=== PATIENT | female | born 1945 | race Caucasian/White ===

== ENCOUNTER 2016-10-28 15:52 | Inpatient (IN) | payer MEDICARE, OTHER ==
[2016-10-28] VITALS (17 sets, daily range): BP systolic 127–213; BP diastolic 59–95; PULSE 80–96; RESP 13–30; TEMP 98.3–100.1; O2SAT 89–100
[~2016-10-28] VITALS: Ht 149.9 cm; Wt 86.4 kg
[~2016-10-28 15:52] MED LIST: ARIC10TA PO; ASPI81 PO; BUSP10TA8 PO; CARV20 PO; CELE200 PO; HYDR-755 PO; LASI20TA PO; LORA10TA7 PO; LORT5TAB PO; NOVO7030P2 SQ; NOVORP2 SQ; OXYB5TAB33 PO; PRIN20TA2 PO; QUET1TAB67 PO; ROSU10 PO
[2016-10-28] MEDS ORDERED: SODIUM CHLORIDE 0.9% FLUSH 10 ML FLUSH IVF PRN ×2 (16:00→16:30)
[2016-10-28] MEDS ORDERED: SUCCINYLCHOLINE CHLORIDE 200 MG/10 ML VIAL IVP ONE (16:30)
[2016-10-28] MEDS ORDERED: ETOMIDATE 20 MG/10 ML VIAL IVP ONE (16:30)
[2016-10-28] MEDS: PROPOFOL 1000 MG/100 ML INJ 100 ML IV PRN ×2 (16:45→21:16)
[2016-10-28 17:19] LABS: BLOOD GAS BASE EXCESS 1.2 mmol/L (-2-2); BLOOD GAS CARBOXYHEMOGLOBIN 1.6 % (0-4); BLOOD GAS HCO3 26 mmol/L (22-26); BLOOD GAS METHEMOGLOBIN 0.7 % (0-2); BLOOD GAS O2 HGB SATURATION 78 % (90-100); BLOOD GAS OXYGEN CONTENT 14.3 Vol % (12.0-20.0); BLOOD GAS PCO2 47 mmHg (38-42); BLOOD GAS PO2 44 mmHG (61-120); CRITICAL VALUE YES; DRAW SITE RT RADIAL; FIO2 21 %; NUMBER OF ARTERIAL PUNCTURES 1; STAT YES; TEMP CORR TO 98.6; ULNAR PULSE PRESENT
[2016-10-28 17:20] LABS: BACTERIA, URINE MOD /hpf; BLOOD, URINE SMALL (NEG); COMMENT (UR) CULTURE INDICATED; CULTURE IF INDICATED CULTURE INDICATED; GLUCOSE,URINE TRACE mg/dL (NEG); KETONE, URINE NEG (NEG); NITRITE,URINE NEG (NEG); PH, URINE 5.5 (5.0-8.5); URINE COLOR YELLOW (YELLW/STRAW)
[2016-10-28] MEDS ORDERED: HUMALOG SQ (17:21)
[2016-10-28] MEDS ORDERED: ZITHTAB PO (17:21)
[2016-10-28] MEDS ORDERED: MILKSUS PO (17:21)
[2016-10-28] MEDS ORDERED: ATOR40TA16 PO (17:21)
[2016-10-28] MEDS ORDERED: ALBU0.08 NEB (17:21)
[2016-10-28] MEDS ORDERED: BISC10SU RECTAL (17:21)
[2016-10-28] MEDS ORDERED: LANTINJ SQ (17:21)
[2016-10-28] MEDS ORDERED: CLON.5 PO (17:21)
[2016-10-28] MEDS ORDERED: AMLO10 PO (17:21)
[2016-10-28] MEDS ORDERED: MICO1KIT VAGINAL (17:21)
[2016-10-28] MEDS ORDERED: CARV25TA PO (17:21)
[2016-10-28] MEDS ORDERED: MINER RECTAL (17:21)
[2016-10-28] MEDS ORDERED: SERO25TA PO (17:21)
[2016-10-28] MEDS ORDERED: HYDR-3288 PO (17:21)
[2016-10-28] MEDS ORDERED: LANTUS2P SQ (17:21)
[2016-10-28 17:27] LABS: AUTOMATED NEUTROPHIL # 10.1 TH/MM3 (1.8-7.7); BASOPHIL # 0.1 TH/MM3 (0-0.2); BASOPHIL % 0.5 % (0.0-2.0); EOSINOPHIL # 0.6 TH/MM3 (0-0.4); EOSINOPHIL % 3.6 % (0.0-4.0); HEMATOCRIT 40.6 % (35.0-46.0); HEMO FLAGS DIFF FINAL; LYMPH % 23.8 % (9.0-44.0); LYMPHOCYTE # 3.7 TH/MM3 (1.0-4.8); MEAN CELL VOLUME 90.4 FL (80.0-100.0); MEAN CORPUSCULAR HEMOGLOBIN 29.5 PG (27.0-34.0); MEAN CORPUSCULAR HGB CONC 32.6 % (32.0-36.0); MONO % 7.2 % (0.0-8.0); NEUT % 64.9 % (16.0-70.0); PLATELET COUNT 230 TH/MM3 (150-450); RED BLOOD COUNT 4.49 MIL/MM3 (4.00-5.30); RED CELL DISTRIBUTION WIDTH 14.2 % (11.6-17.2); WHITE BLOOD COUNT 15.6 TH/MM3 (4.0-11.0)
[2016-10-28 17:28] LABS: APTT (PATIENT) 29.2 SEC (24.3-30.1)
[2016-10-28 17:35] LABS: ANION GAP 8 MEQ/L (5-15); AST (GOT) 8 U/L (15-37); BICARBONATE 28.3 MEQ/L (21.0-32.0); BLOOD UREA NITROGEN 24 MG/DL (7-18); CHLORIDE 104 MEQ/L (98-107); GLOMERULAR FILTRATION RATE 55 ML/MIN (>89); POTASSIUM 4.5 MEQ/L (3.5-5.1); SODIUM (NA) 140 MEQ/L (136-145)
[2016-10-28 17:36] LABS: ALT (GPT) 8 U/L (10-53)
--- NOTE | 2016-10-28 17:36 | RADRPT ---
EXAM DATE/TIME: 10/28/2016 16:58 [facility] COMPARISON: No previous studies available for comparison. INDICATIONS : E-T tube placement. MEDICAL HISTORY : Hypertension. Diabetes mellitus type II. Arthritis. SURGICAL HISTORY : None. ENCOUNTER: Initial ACUITY: 1 day PAIN SCORE: Non-responsive. LOCATION: Bilateral chest FINDINGS: 4 cm masslike fullness seen in the right hilar region and potentially cavitary with air-fluid level. There is some non-cavitary fullness in the left hilar region as well. Patchy air space consolidations in both lungs, mid and lower lung predominant. A small pleural effusion is suspected on both sides. No pneumothorax. Heart size within normal limits. Endotracheal tube tip is approximately 2 cm above the radhika. There is a nasogastric tube with tip in the stomach. CONCLUSION: 1. Bilateral hilar masslike fullness and with questionable cavitation on the right. I don't have any pertinent priors for comparison. A CT of the chest, preferably with intravenous contrast, is recommen ded. 2. Patchy mid and lower lung predominant air space consolidation bilaterally and with small pleural e ffusions. 3. Endotracheal tube tip is approximately 2 cm above the radhika. 4. Nasogastric tube tip in the stomach. Keshav Burks MD on October 28, 2016 at 17:32 Board Certified Radiologist. This report was verified electronically.
[2016-10-28 17:40] LABS: ALKALINE PHOSPHATASE 58 U/L (45-117); TOTAL BILIRUBIN ADULT 0.3 MG/DL (0.2-1.0)
[2016-10-28 17:44] LABS: CREATINE KINASE 46 U/L (26-192)
[2016-10-28 18:01] LABS: BLOOD GAS CARBOXYHEMOGLOBIN 1.4 % (0-4); BLOOD GAS HCO3 24 mmol/L (22-26); BLOOD GAS METHEMOGLOBIN 0.5 % (0-2); BLOOD GAS O2 HGB SATURATION 93 % (90-100); BLOOD GAS OXYGEN CONTENT 15.8 Vol % (12.0-20.0); BLOOD GAS PCO2 45 mmHg (38-42); BLOOD GAS PO2 77 mmHG (61-120); CRITICAL VALUE NO; TEMP CORR TO 98.6
[2016-10-28 18:02] LABS: OXYGEN DEVICE VENTILATOR
--- NOTE | 2016-10-28 18:03 | PD ---
Physical Exam Date Seen by Provider: Oct 28, 2016 Time Seen by Provider: 17:56 Data Data Last Documented VS Vital Signs Date Time Temp Pulse Resp B/P (MAP) Pulse Ox O2 Delivery O2 Flow Rate FiO2 10/28/16 17:53 82 14 165/79 (107) 99 Auto-Vent 100 10/28/16 16:00 15.00 10/28/16 15:57 100.1 Orders Orders Complete Blood Count With Diff (10/28/16 15:59) Comprehensive Metabolic Panel (10/28/16 15:59) B-Type Natriuretic Peptide (10/28/16 15:59) Act Partial Throm Time (Ptt) (10/28/16 15:59) Ckmb (Isoenzyme) Profile (10/28/16 15:59) Troponin I (10/28/16 15:59) Arterial Blood Gas (Abg) (10/28/16 15:59) Urinalysis - C+S If Indicated (10/28/16 15:59) Blood Culture (10/28/16 15:59) Iv Access Insert/Monitor (10/28/16 15:59) Electrocardiogram (10/28/16 15:59) Ecg Monitoring (10/28/16 15:59) Oximetry (10/28/16 15:59) Oxygen Administration (10/28/16 15:59) Chest, Single Ap (10/28/16 15:59) Sodium Chloride 0.9% Flush (Ns Flush) (10/28/16 16:00) Etomidate Inj (Amidate Inj) (10/28/16 16:30) Succinylcholine Inj (Quelicin Inj) (10/28/16 16:30) Sodium Chloride 0.9% Flush (Ns Flush) (10/28/16 16:30) Propofol 1000 Mg/100 Ml Inj (Diprivan 10 (10/28/16 16:30) ^ Infusion (10/28/16 16:22) RASS (10/28/16 16:22) Neurological Rass Scale SHANIQUE.Q2H (10/28/16 16:22) Restraints Non-Violent SHANIQUE.Q3H (10/28/16 17:16) ^ Orogastric Tube (10/28/16 17:16) Urinary Catheter Insert/Apply (10/28/16 17:16) Urine Culture (10/28/16 17:00) Labs Laboratory Tests Test 10/28/16 15:50 10/28/16 16:15 10/28/16 17:00 Blood Gas Puncture Site RT RADIAL Blood Gas Patient Temperature 98.6 Blood Gas HCO3 26 mmol/L Blood Gas Base Excess 1.2 mmol/L Blood Gas Oxygen Saturation 78 % Arterial Blood pH 7.36 Arterial Blood Partial Pressure CO2 47 mmHg Arterial Blood Partial Pressure O2 44 mmHG Arterial Blood Oxygen Content 14.3 Vol % Arterial Blood Carboxyhemoglobin 1.6 % Arterial Blood Methemoglobin 0.7 % Blood Gas Hemoglobin 13.0 G/DL Blood Gas Inspired Oxygen 21 % White Blood Count 15.6 TH/MM3 Red Blood Count 4.49 MIL/MM3 Hemoglobin 13.2 GM/DL Hematocrit 40.6 % Mean Corpuscular Volume 90.4 FL Mean Corpuscular Hemoglobin 29.5 PG Mean Corpuscular Hemoglobin Concent 32.6 % Red Cell Distribution Width 14.2 % Platelet Count 230 TH/MM3 Mean Platelet Volume 8.7 FL Neutrophils (%) (Auto) 64.9 % Lymphocytes (%) (Auto) 23.8 % Monocytes (%) (Auto) 7.2 % Eosinophils (%) (Auto) 3.6 % Basophils (%) (Auto) 0.5 % Neutrophils # (Auto) 10.1 TH/MM3 Lymphocytes # (Auto) 3.7 TH/MM3 Monocytes # (Auto) 1.1 TH/MM3 Eosinophils # (Auto) 0.6 TH/MM3 Basophils # (Auto) 0.1 TH/MM3 CBC Comment DIFF FINAL Differential Comment Activated Partial Thromboplast Time 29.2 SEC Blood Urea Nitrogen 24 MG/DL Creatinine 1.00 MG/DL Random Glucose 125 MG/DL Total Protein 7.3 GM/DL Albumin 3.3 GM/DL Calcium Level 8.9 MG/DL Alkaline Phosphatase 58 U/L Aspartate Amino Transf (AST/SGOT) 8 U/L Alanine Aminotransferase (ALT/SGPT) 8 U/L Total Bilirubin 0.3 MG/DL Sodium Level 140 MEQ/L Potassium Level 4.5 MEQ/L Chloride Level 104 MEQ/L Carbon Dioxide Level 28.3 MEQ/L Anion Gap 8 MEQ/L Estimat Glomerular Filtration Rate 55 ML/MIN Total Creatine Kinase 46 U/L Troponin I LESS THAN 0.02 NG/ML Urine Color YELLOW Urine Turbidity HAZY Urine pH 5.5 Urine Specific [place] 1.018 Urine Protein 300 mg/dL Urine Glucose (UA) TRACE mg/dL Urine Ketones NEG mg/dL Urine Occult Blood SMALL Urine Nitrite NEG Urine Bilirubin NEG Urine Urobilinogen LESS THAN 2.0 MG/DL Urine Leukocyte Esterase MOD Urine RBC 1 /hpf Urine WBC 8 /hpf Urine Bacteria MOD /hpf Microscopic Urinalysis Comment CULTURE INDICATED MDM Supervised Visit with CARA: Yes Narrative Course Dr. Potter supervised me while I intubated this patient in respiratory distress. Please see procedure note for details. See Dr. Potter's notes for full dose of this patient's emergency room visit. Procedures Procedure Narrative After the risks and benefits were discussed the following procedure was performed: INTUBATION: The patient was put in optimal position for the procedure. Rapid sequence intubation was initiated by me using 20 milligrams of etomidate IV and 100 milligrams of succinylcholine IV. The patient was intubated with a 7.5 cuffed endotracheal tube utilizing the C Eric intubation device.. Tube placement was confirmed by visualization of the tube and balloon passing through the cords, capnometry and subsequent chest x-ray. Breath sounds were equal and well aerated bilaterally postintubation. No breath sounds over stomach. Patient tolerated procedure well. Sharon Orourke Oct 28, 2016 18:03
[2016-10-28] MEDS ORDERED: AZTREONAM INJ 2,000 MG in SODIUM CHLORIDE 0.9% INJ 100 ML IV STA (18:15)
[2016-10-28] MEDS ORDERED: LEVOFLOXACIN 750 MG PREMIX INJ 150 ML IV STA (18:15)
--- NOTE | 2016-10-28 18:25 | PD ---
HPI Chief Complaint: Respiratory Distress Time Seen by Provider: 15:59 Travel History International Travel<30 days: No Contact w/Intl Traveler<30days: No Traveled to known affect area: No History of Present Illness HPI This is a 70-year-old female who presents from the [place] [facility] with shortness of breath and low O2 saturations per the patient has a history of diabetes mellitus, hyperlipidemia, reactive airway disease. When paramedics arrived they found the patient says to be in the 70s and patient was to. The patient has a large apple-shaped habitus. They report that she was very apneic when trying to breathe on her own. [employer] Core Layer report of the head to hold her head up to have her breathe with a nebulizer treatments in place. Patient received 125 mg of Solu-Medrol. Patient also had 4 nebulizer prior to arrival. When patient arrived she was very lethargic however was able to answer some questions. She does have a history of dementia and was not able to answer all questions are appropriately. A blood gas was obtained and showed her PO2 and PCO2 to be in the 40s. Concern was that she was going to respiratory distress PFS Past Medical History Arthritis: Yes (OSTEO) Asthma: No Autoimmune Disease: No Blood Disorders: No (N) Anxiety: Yes Depression: Yes Heart Rhythm Problems: No Cancer: No Cardiovascular Problems: Yes Chemotherapy: No Chest Pain: No Congestive Heart Failure: No COPD: No Cerebrovascular Accident: No Dementia: Yes Diabetes: Yes Patient Takes Glucophage: Yes Endocrine: No GERD: No Glaucoma: No Genitourinary: No Headaches: Yes (ONCE A DAY, EVERYDAY) Hepatitis: No Hiatal Hernia: No Hypertension: Yes Immune Disorder: No Kidney Stones: No Medical other: Yes (RHINITIS,CONSTIPATION,EDEMA) Musculoskeletal: Yes (WEAKNESS) Neurologic: No Psychiatric: No Reproductive: No Respiratory: Yes Migraines: No Myocardial Infarction: No Radiation Therapy: No Renal Failure: No Seizures: No Sickle Cell Disease: No Sleep Apnea: No Thyroid Disease: Yes Ulcer: No Past Surgical History Abdominal Surgery: No AICD: No Appendectomy: No Arteriovenous Shunt: No Cholecystectomy: No Ear Surgery: No Endocrine Surgery: No Genitourinary Surgery: No Gynecologic Surgery: No Insulin Pump: No Joint Replacement: No Oral Surgery: No Pacemaker: No Thoracic Surgery: No Social History Alcohol Use: No Tobacco Use: No Substance Use: No Allergies-Medications (Allergen,Severity, Reaction): Coded Allergies: propoxyphene (Unverified Allergy, Severe, 09/25/16) amoxicillin (Verified Allergy, Unknown, 10/28/16) Reported Meds & Prescriptions Reported Meds & Active Scripts Active Reported Fleet Oil Enema (Mineral Oil) 118 Ml Enem 1 Ea RECTAL DIRECTED PRN Milk of Magnesia Liq (Magnesium Hydroxide) 400 Mg/5 Ml Susp 15 Ml PO DAILY PRN Biscolax Supp (Bisacodyl) 10 Mg Supp 10 Mg RECTAL DAILY PRN Carvedilol 25 Mg Tab 25 Mg PO BID Humalog Inj (Insulin Human Lispro) 1,000 Unit/10 Ml Vial 1-9 Units SQ ACHS Max dose at bedtime:( )units; sugars< 70,(0)units; sugars 150-199,(1)unit; sugars 200-249,(3)units; sugars 250-299,(5)units; sugars 300-349,(7)units; sugars more than 349,(9)units. Monistat 1 Day or Night C 1200-2 mg-% (Miconazole Nitrate Vaginal) 1,200 Mg-2 % Kit 1 Ea VAGINAL ONCE Lantus Solostar Pen Inj (Insulin Glargine) 300 Unit/3 Ml Pen 1 Units SQ Lantus Inj (Insulin Glargine) 1,000 Unit/10 Ml Vial 1 Units SQ HS Norvasc (Amlodipine Besylate) 10 Mg Tab 10 Mg PO DAILY Atorvastatin (Atorvastatin Calcium) 40 Mg Tab 40 Mg PO HS Klonopin (Clonazepam) 0.5 Mg Tab 0.5 Mg PO BID Seroquel (Quetiapine Fumarate) 25 Mg Tab 25 Mg PO DAILY [place] (Hydrocodone-Acetaminophen) 7.5-325 mg Tab 1 Tab PO Q4H PRN Zithromax Z-Ronnie (Azithromycin) 250 Mg Dspk 250 Mg PO DIRECTED 500 MG (2 tabs) day 1, then 1 tab days 2-5. Albuterol Neb (Albuterol Sulfate) 2.5 Mg/3 Ml Neb 2.5 Mg NEB Q4HR NEB PRN Review of Systems ROS Limitations: Clinical Condition, Poor Historian Except as stated in HPI: all other systems reviewed are Neg (review of systems were negative however patient does have a history of dementia and unable to provide adequate history. She was only complaining of shortness of breath.) Respiratory: Positive: Shortness of Breath Physical Exam Narrative GENERAL: Ill appearing female and moderate to severe respiratory distress. SKIN: Focused skin assessment warm/dry. HEAD: Atraumatic. Normocephalic. EYES: No scleral icterus. No injection or drainage. ENT: No nasal bleeding or discharge. Mucous membranes pink and moist. NECK: Trachea midline. No JVD. CARDIOVASCULAR: Regular rate and rhythm. No murmur appreciated. RESPIRATORY: Coarse rhonchi and Rales bilaterally. Shallow respiratory effort. GASTROINTESTINAL: Abdomen soft, non-tender, nondistended. No rebound or guarding. MUSCULOSKELETAL: No obvious deformities. No clubbing. No cyanosis. No edema. NEUROLOGICAL: Awake and lethargic. No obvious cranial nerve deficits. Motor grossly within normal limits. Week speech.. Data Data Last Documented VS Vital Signs Date Time Temp Pulse Resp B/P (MAP) Pulse Ox O2 Delivery O2 Flow Rate FiO2 10/28/16 18:12 85 14 146/59 (88) 100 Auto-Vent 100 10/28/16 17:57 99.7 10/28/16 16:00 15.00 Orders Orders Complete Blood Count With Diff (10/28/16 15:59) Comprehensive Metabolic Panel (10/28/16 15:59) B-Type Natriuretic Peptide (10/28/16 15:59) Act Partial Throm Time (Ptt) (10/28/16 15:59) Ckmb (Isoenzyme) Profile (10/28/16 15:59) Troponin I (10/28/16 15:59) Arterial Blood Gas (Abg) (10/28/16 15:59) Urinalysis - C+S If Indicated (10/28/16 15:59) Blood Culture (10/28/16 15:59) Iv Access Insert/Monitor (10/28/16 15:59) Electrocardiogram (10/28/16 15:59) Ecg Monitoring (10/28/16 15:59) Oximetry (10/28/16 15:59) Oxygen Administration (10/28/16 15:59) Chest, Single Ap (10/28/16 15:59) Sodium Chloride 0.9% Flush (Ns Flush) (10/28/16 16:00) Etomidate Inj (Amidate Inj) (10/28/16 16:30) Succinylcholine Inj (Quelicin Inj) (10/28/16 16:30) Sodium Chloride 0.9% Flush (Ns Flush) (10/28/16 16:30) Propofol 1000 Mg/100 Ml Inj (Diprivan 10 (10/28/16 16:30) ^ Infusion (10/28/16 16:22) RASS (10/28/16 16:22) Neurological Rass Scale SHANIQUE.Q2H (10/28/16 16:22) Restraints Non-Violent SHANIQUE.Q3H (10/28/16 17:16) ^ Orogastric Tube (10/28/16 17:16) Urinary Catheter Insert/Apply (10/28/16 17:16) Urine Culture (10/28/16 17:00) Arterial Blood Gas (Abg) (10/28/16 17:40) Ct Thorax/ Chest W Iv Contrast (10/28/16 18:14) Blood Glucose (10/28/16 18:15) Aztreonam Inj (Azactam Inj) (10/28/16 18:15) Levofloxacin 750 Mg Premix Inj (Levaquin (10/28/16 18:15) Admit Order (Ed Use Only) (10/28/16 18:29) Labs Laboratory Tests Test 10/28/16 15:50 10/28/16 16:15 10/28/16 17:00 10/28/16 17:40 Blood Gas Puncture Site RT RADIAL RT BRACHIAL Blood Gas Patient Temperature 98.6 98.6 Blood Gas HCO3 26 mmol/L 24 mmol/L Blood Gas Base Excess 1.2 mmol/L -1.0 mmol/L Blood Gas Oxygen Saturation 78 % 93 % Arterial Blood pH 7.36 7.34 Arterial Blood Partial Pressure CO2 47 mmHg 45 mmHg Arterial Blood Partial Pressure O2 44 mmHG 77 mmHG Arterial Blood Oxygen Content 14.3 Vol % 15.8 Vol % Arterial Blood Carboxyhemoglobin 1.6 % 1.4 % Arterial Blood Methemoglobin 0.7 % 0.5 % Blood Gas Hemoglobin 13.0 G/DL 12.0 G/DL Blood Gas Inspired Oxygen 21 % 100 % White Blood Count 15.6 TH/MM3 Red Blood Count 4.49 MIL/MM3 Hemoglobin 13.2 GM/DL Hematocrit 40.6 % Mean Corpuscular Volume 90.4 FL Mean Corpuscular Hemoglobin 29.5 PG Mean Corpuscular Hemoglobin Concent 32.6 % Red Cell Distribution Width 14.2 % Platelet Count 230 TH/MM3 Mean Platelet Volume 8.7 FL Neutrophils (%) (Auto) 64.9 % Lymphocytes (%) (Auto) 23.8 % Monocytes (%) (Auto) 7.2 % Eosinophils (%) (Auto) 3.6 % Basophils (%) (Auto) 0.5 % Neutrophils # (Auto) 10.1 TH/MM3 Lymphocytes # (Auto) 3.7 TH/MM3 Monocytes # (Auto) 1.1 TH/MM3 Eosinophils # (Auto) 0.6 TH/MM3 Basophils # (Auto) 0.1 TH/MM3 CBC Comment DIFF FINAL Differential Comment Activated Partial Thromboplast Time 29.2 SEC Blood Urea Nitrogen 24 MG/DL Creatinine 1.00 MG/DL Random Glucose 125 MG/DL Total Protein 7.3 GM/DL Albumin 3.3 GM/DL Calcium Level 8.9 MG/DL Alkaline Phosphatase 58 U/L Aspartate Amino Transf (AST/SGOT) 8 U/L Alanine Aminotransferase (ALT/SGPT) 8 U/L Total Bilirubin 0.3 MG/DL Sodium Level 140 MEQ/L Potassium Level 4.5 MEQ/L Chloride Level 104 MEQ/L Carbon Dioxide Level 28.3 MEQ/L Anion Gap 8 MEQ/L Estimat Glomerular Filtration Rate 55 ML/MIN Total Creatine Kinase 46 U/L Troponin I LESS THAN 0.02 NG/ML B-Type Natriuretic Peptide 12 PG/ML Urine Color YELLOW Urine Turbidity HAZY Urine pH 5.5 Urine Specific [place] 1.018 Urine Protein 300 mg/dL Urine Glucose (UA) TRACE mg/dL Urine Ketones NEG mg/dL Urine Occult Blood SMALL Urine Nitrite NEG Urine Bilirubin NEG Urine Urobilinogen LESS THAN 2.0 MG/DL Urine Leukocyte Esterase MOD Urine RBC 1 /hpf Urine WBC 8 /hpf Urine Bacteria MOD /hpf Microscopic Urinalysis Comment CULTURE INDICATED Oxygen Delivery Device VENTILATOR Blood Gas Ventilator Setting MDM Medical Decision Making Medical Screen Exam Complete: Yes Emergency Medical Condition: Yes Differential Diagnosis Respiratory failure versus pneumonia versus COPD exacerbation versus pulmonary him was versus hypercapnia Narrative Course This is a 70-year-old female presents with severe shortness of breath. The patient was becoming fatigued. Her initial blood gas showed a PO2 and a PCO2 in the 40s. Her pH was 7.35. Given an pending respiratory failure, the patient was intubated. Chest x-ray shows what appears to be a cavitary lesion and possible masses bilateral mediastinal. She also has what appears to be a left lower lobe consolidation and bilateral small pleural effusions. There is a call out to the authorization manager for admission. She is currently getting a CT scan of the chest for further visualization of the abnormal chest x-ray findings. She has an amoxicillin allergy so she has been started on aztreonam and levofloxacin. Her urinalysis has a slight UTI as well. Critical Care Narrative Aggregate critical care time was 60 minutes. Time to perform other separately billable procedures was not included in the critical care time. My time did not include minutes spent treating any other patients simultaneously or on activities that did not directly contribute to the patient's treatment. The services I provided to this patient were to treat and/or prevent clinically significant deterioration that could result in: I provided critical care services requiring my management, as noted below: Chart data review, documentation time, medication orders and management, vital sign assessments/reviewing monitor data, ordering and reviewing lab tests, ordering and interpreting/reviewing x-rays and diagnostic studies, care of the patient and discussion of the patient with the admitting physicians. Procedures Procedure Narrative Under my direct supervision, patient was intubated using the [facility] by Beth Orourke PA-C. Patient was premedicated with 20 mg of accommodate, 100 g of succinylcholine. A 7.5 ET tube was passed throughout the cords under direct visualization. End-tidal CO2 and colorimetric device confirmed placement of the tube. Chest x-ray showed the ET tube be 2 cm above the radhika. Diagnosis Primary Impression: Respiratory failure Additional Impressions: Cavitary lesion of lung possible pulmonary masses. Pneumonia Hypoxemia requiring supplemental oxygen UTI (urinary tract infection) Admitting Information Admitting Physician Requests: Admit Jones Potter MD Oct 28, 2016 18:25
[2016-10-28] MEDS ORDERED: HEPARIN SODIUM - SQ 10,000 UNITS/ML VIAL SQ SCH (18:30)
[2016-10-28] MEDS ORDERED: MISCELLANEOUS NURSING INFORMATION XX SCH (18:30)
[2016-10-28] MEDS ORDERED: RESP: ALBUTEROL 2.5 MG/IPRATROPIUM 0.5 MG NEB (PRN) INH (18:30)
[2016-10-28] MEDS ORDERED: SODIUM CHLORIDE 0.9% FLUSH 10 ML FLUSH IV FLUSH PRN (18:30)
[2016-10-28] MEDS ORDERED: CHLORHEXIDINE GLUCONATE 2 % 1 PACK (2 CLOTHS) TOP PRN (18:30)
[2016-10-28] MEDS ORDERED: IOHEXOL 350 MG/ML 10 ML VIAL (for RAD DIAG) IVCONTRAST ONE (18:33)
[2016-10-28 18:44] LABS: DRAW SITE RT BRACHIAL; FIO2 100 %; NUMBER OF ARTERIAL PUNCTURES 1; STAT NO
--- NOTE | 2016-10-28 18:51 | RADRPT ---
EXAM DATE/TIME: 10/28/2016 18:28 [facility] COMPARISON: CHEST SINGLE AP, October 28, 2016, 16:58. INDICATIONS : Respiratory distress, mass. IV CONTRAST: 75 cc Omnipaque 350 (iohexol) IV RADIATION DOSE: 8.69 CTDIvol (mGy) MEDICAL HISTORY : unobtainable SURGICAL HISTORY : unobtainable ENCOUNTER: Initial ACUITY: 1 day PAIN SCALE: Non-responsive LOCATION: chest TECHNIQUE: Volumetric scanning of the chest was performed. Using automated exposure control and adjustment of t he mA and/or kV according to patient size, radiation dose was kept as low as reasonably achievable to obtain optimal diagnostic quality images. DICOM format image data is available electronically for review and comparison. Follow-up recommendations for detected pulmonary nodules are based at a minimum on nodule size and pa tient risk factors according to Fleischner Society Guidelines. FINDINGS: LUNGS: Dense airspace consolidation in the inferior right upper lobe abutting the fissure. Abnormality on ch est radiograph corresponds to superimposed consolidation and central hilar mass/adenopathy measuring 3.4 x 3.5 cm. There is a solid 1.3 x 0.8 cm nodule in the anterior right middle lobe. There is a seco nd peripheral nodule in the anterior right upper lobe near the apex measuring 8 x 8 mm. Diffuse lower lobe groundglass opacities and patchy bilateral lower lobe airspace consolidation. PLEURA: No significant pleural effusion. MEDIASTINUM: There is a large 3.9 x 4.3 cm heterogeneous nodule in the right thyroid gland. Patient is intubated w ith ETT in good position. NGT courses into the stomach. There is a slightly prominent anterior radhika l node measuring 1.5 cm. Again, there is right hilar mass/adenopathy. The prominent coronary artery c alcifications. Heart is otherwise grossly unremarkable. Central pulmonary artery is patent. AXILLAE: Within normal limits. No significant lymphadenopathy. SKELETAL: No abnormal lytic or blastic bony lesions. MISCELLANEOUS: The visualized upper abdominal organs demonstrate no acute abnormality. CONCLUSION: 1. Abnormality on chest radiograph corresponds to a 3.4 x 3.5 cm central right hilar mass/adenopathy with associated postobstructive airspace consolidation in the inferior right upper lobe. There are at least 2 additional pulmonary nodules measuring 13 x 8 mm in the anterior right middle lobe and 8 x 8 mm in the anterior right upper lobe near the apex. 2. 3.9 x 4.3 cm heterogeneous nodule in the right thyroid gland. No significant regional cervical sipke nopathy. 3. Patchy bilateral lower lobe air space consolidation and diffuse ground glass opacities. Differenti al considerations include ARDS versus infection versus aspiration. 1. Tyler Selby MD on October 28, 2016 at 18:36 Board Certified Radiologist. This report was verified electronically.
[2016-10-28] MEDS: SODIUM CHLOR 0.9% 1000 ML INJ 1,000 ML IV SCH (18:58)
[2016-10-28] MEDS: RESP: ALBUTEROL 2.5 MG/IPRATROPIUM 0.5 MG NEB (SCH) NEB (19:33)
--- NOTE | 2016-10-28 19:56 | HHI.CCPN ---
Subjective Remarks/Hospital Course HPI 70-[facility]-old [facility] resident with a medical history significant for dementia, diabetes mellitus, hyperlipidemia, reactive airway disease who was found to have altered mental status at the [facility] for which EMS was called. Patient was noted to have O2 sats in the 70s. She was very apneic with her head slumped down. Paramedics report of having to hold her head up to have her breathe with the nebulizer treatment in place. Patient was given Solu- Medrol 125 mg IV and 4 nebulizer treatments prior to arrival in the ER for documentation. On arrival in the ER patient was extremely lethargic however was reportedly able to answer some questions. Patient was felt not to be able to protect her airway as well as very hypoxic and hence was intubated by ER physician and placed on mechanical ventilation. Chest x-ray in the ER showed bilateral infiltrates and possible cavitary lesion. She was accepted for admission by critical care medicine service. CT chest was ordered by ER physician. When I evaluated the patient in the ER she was sedated with propofol , orally intubated on mechanical ventilation. History was obtained by reviewing records and discussion with ER physician. History PFSH Past Medical History Arthritis: Yes (OSTEO) Asthma: No Autoimmune Disease: No Blood Disorders: No (N) Anxiety: Yes Depression: Yes Heart Rhythm Problems: No Cancer: No Cardiovascular Problems: Yes Chemotherapy: No Chest Pain: No Congestive Heart Failure: No COPD: No Cerebrovascular Accident: No Dementia: Yes Diabetes: Yes Patient Takes Glucophage: Yes Endocrine: No GERD: No Glaucoma: No Genitourinary: No Headaches: Yes (ONCE A DAY, EVERYDAY) Hepatitis: No Hiatal Hernia: No Hypertension: Yes Immune Disorder: No Kidney Stones: No Medical other: Yes (RHINITIS,CONSTIPATION,EDEMA) Musculoskeletal: Yes (WEAKNESS) Neurologic: No Psychiatric: No Reproductive: No Respiratory: Yes Migraines: No Myocardial Infarction: No Radiation Therapy: No Renal Failure: No Seizures: No Sickle Cell Disease: No Sleep Apnea: No Thyroid Disease: Yes Ulcer: No Past Surgical History Abdominal Surgery: No AICD: No Appendectomy: No Arteriovenous Shunt: No Cholecystectomy: No Ear Surgery: No Endocrine Surgery: No Genitourinary Surgery: No Gynecologic Surgery: No Insulin Pump: No Joint Replacement: No Oral Surgery: No Pacemaker: No Thoracic Surgery: No Social History Alcohol Use: No Tobacco Use: No Substance Use: No Allergies-Medications Allergies-Medications (Allergen,Severity, Reaction): Coded Allergies: propoxyphene (Unverified Allergy, Severe, 09/25/16) amoxicillin (Verified Allergy, Unknown, 10/28/16) Reported Meds & Prescriptions Reported Meds & Active Scripts Active Reported Fleet Oil Enema (Mineral Oil) 118 Ml Enem 1 Ea RECTAL DIRECTED PRN Milk of Magnesia Liq (Magnesium Hydroxide) 400 Mg/5 Ml Susp 15 Ml PO DAILY PRN Biscolax Supp (Bisacodyl) 10 Mg Supp 10 Mg RECTAL DAILY PRN Carvedilol 25 Mg Tab 25 Mg PO BID Humalog Inj (Insulin Human Lispro) 1,000 Unit/10 Ml Vial 1-9 Units SQ ACHS Max dose at bedtime:( )units; sugars< 70,(0)units; sugars 150-199,(1)unit; sugars 200-249,(3)units; sugars 250-299,(5)units; sugars 300-349,(7)units; sugars more than 349,(9)units. Monistat 1 Day or Night C 1200-2 mg-% (Miconazole Nitrate Vaginal) 1,200 Mg-2 % Kit 1 Ea VAGINAL ONCE Lantus Solostar Pen Inj (Insulin Glargine) 300 Unit/3 Ml Pen 1 Units SQ Lantus Inj (Insulin Glargine) 1,000 Unit/10 Ml Vial 1 Units SQ HS Norvasc (Amlodipine Besylate) 10 Mg Tab 10 Mg PO DAILY Atorvastatin (Atorvastatin Calcium) 40 Mg Tab 40 Mg PO HS Klonopin (Clonazepam) 0.5 Mg Tab 0.5 Mg PO BID Seroquel (Quetiapine Fumarate) 25 Mg Tab 25 Mg PO DAILY [place] (Hydrocodone-Acetaminophen) 7.5-325 mg Tab 1 Tab PO Q4H PRN Zithromax Z-Ronnie (Azithromycin) 250 Mg Dspk 250 Mg PO DIRECTED 500 MG (2 tabs) day 1, then 1 tab days 2-5. Albuterol Neb (Albuterol Sulfate) 2.5 Mg/3 Ml Neb 2.5 Mg NEB Q4HR NEB PRN Objective Vital Signs Date Time Temp Pulse Resp B/P (MAP) Pulse Ox O2 Delivery O2 Flow Rate FiO2 10/28/16 19:27 100 10/28/16 18:58 84 13 151/67 (95) 100 Auto-Vent 10/28/16 17:57 99.7 10/28/16 16:00 15.00 Intake and Output 10/28/16 10/28/16 10/29/16 08:00 16:00 00:00 Output Total 150 ml Balance -150 ml Result Diagram: 10/28/16 1615 10/28/16 1615 Other Results Laboratory Tests Test 10/28/16 15:50 10/28/16 17:40 Blood Gas Puncture Site RT RADIAL RT BRACHIAL Blood Gas Patient Temperature 98.6 98.6 Blood Gas HCO3 26 mmol/L (22-26) 24 mmol/L (22-26) Blood Gas Base Excess 1.2 mmol/L (-2-2) -1.0 mmol/L (-2-2) Blood Gas Oxygen Saturation 78 % (90-100) 93 % (90-100) Arterial Blood pH 7.36 (7.380-7.420) 7.34 (7.380-7.420) Arterial Blood Partial Pressure CO2 47 mmHg (38-42) 45 mmHg (38-42) Arterial Blood Partial Pressure O2 44 mmHG (61-120) 77 mmHG (61-120) Arterial Blood Oxygen Content 14.3 Vol % (12.0-20.0) 15.8 Vol % (12.0-20.0) Arterial Blood Carboxyhemoglobin 1.6 % (0-4) 1.4 % (0-4) Arterial Blood Methemoglobin 0.7 % (0-2) 0.5 % (0-2) Blood Gas Hemoglobin 13.0 G/DL (12.0-16.0) 12.0 G/DL (12.0-16.0) Blood Gas Inspired Oxygen 21 % 100 % Oxygen Delivery Device VENTILATOR Blood Gas Ventilator Setting Imaging Last Impressions Chest CT 10/28/161813 Signed Impressions: Service Date/Time: Friday, October 28, 2016 18:28 - CONCLUSION: 1. Abnormality on chest radiograph corresponds to a 3.4 x 3.5 cm central right hilar mass/adenopathy with associated postobstructive airspace consolidation in the inferior right upper lobe. There are at least 2 additional pulmonary nodules measuring 13 x 8 mm in the anterior right middle lobe and 8 x 8 mm in the anterior right upper lobe near the apex. 2. 3.9 x 4.3 cm heterogeneous nodule in the right thyroid gland. No significant regional cervical adenopathy. 3. Patchy bilateral lower lobe air space consolidation and diffuse ground glass opacities. Differential considerations include ARDS versus infection versus aspiration. 1. Tyler Selby MD Chest X-Ray 10/28/16 1559 Signed Impressions: Service Date/Time: Friday, October 28, 2016 16:58 - CONCLUSION: 1. Bilateral hilar masslike fullness and with questionable cavitation on the right. I don't have any pertinent priors for comparison. A CT of the chest, preferably with intravenous contrast, is recommended. 2. Patchy mid and lower lung predominant air space consolidation bilaterally and with small pleural effusions. 3. Endotracheal tube tip is approximately 2 cm above the radhika. 4. Nasogastric tube tip in the stomach. Keshav Burks MD Objective Remarks HEENT/ Neuro: Sedated, orally intubated, no pallor, no icterus, tongue/ mucosa moist Neck: No JVD Chest/Pulm: on mech vent, good air entry bilaterally, scattered rhonchi, no wheezing CVS: S1-S2 regular, no murmur GI/abdomen: soft, nontender, bowel sounds sluggish Extremities: warm bilaterally, no edema Urinary Catheter: Yes Assessment to: Continue Jang insert reason: Measure Accurate Output A/P Assessment and Plan 70-year-old female with: Encephalopathy Acute the story failure on mechanical ventilation Severe sepsis Suspect aspiration pneumonia Pulmonary nodules Hilar lymphadenopathy Reactive airway disease Diabetes mellitus Hyperlipidemia Hypertension History of dementia Plan: Neuro: Sedation with propofol, daily sedation vacation. Follow neuro status. Ordered head CT without contrast for further evaluation of altered mental status. Cardiovascular: IV hydration, watch for hypotension. Labetalol when necessary for hypertension if needed. Follow serial cardiac enzymes. Pulmonary: Continue mechanical ventilation, vent bundle, bronchodilators. Sputum to be sent for Gram stain and cultures. Pulmonary consult in view of forming nodules and hilar lymphadenopathy. Further evaluation and possible bronchoscopy. Received 1 dose of Solu-Medrol in ER, we'll hold off on steroids as no wheezing currently while awaiting pulmonary/ ID evaluation. ID: Follow-up blood cultures, UA and urine cultures. Sputum to be sent for Gram stain and cultures as well as AFB staining. Pulmonary and ID consult requested for further evaluation of pneumonia/pulmonary nodules/ lymphadenopathy. Check urine for strep pneumo and Legionella antigen. Nasal washings for influenza A and B ordered. Continue empiric antibiotic coverage with IV Zyvox/aztreonam/Levaquin/Flagyl GI/liver: Insert OG tube. Start tube feeds with Glucerna and advance to goal as tolerated. Renal/ : strict intake output, monitor and replete electrolytes, follow BUN/ creatinine. Heme: Follow CBC Endocrine: SSI for glycemic control as needed Prophylaxis: Pepcid via OG tube, SCDs/subcutaneous heparin Condition critical. Time spent on critical care excluding procedures 60 minutes Moises Giang MD Oct 28, 2016 19:56
[2016-10-28] MEDS: LINEZOLID 600 MG PREMIX 300 ML IV SCH (20:17)
--- NOTE | 2016-10-28 21:01 | RADRPT ---
EXAM DATE/TIME: 10/28/2016 20:44 [place] COMPARISON: No previous studies available for comparison. INDICATIONS : Altered mental status. RADIATION DOSE: 38.98 CTDIvol (mGy) MEDICAL HISTORY : Hypertension. Diabetes mellitus type 2. Dementia. SURGICAL HISTORY : None. ENCOUNTER: Initial ACUITY: 1 day PAIN SCALE: Non-responsive LOCATION: cranial TECHNIQUE: Multiple contiguous axial images were obtained of the head. Using automated exposure control and adj ustment of the mA and/or kV according to patient size, radiation dose was kept as low as reasonably a chievable to obtain optimal diagnostic quality images. DICOM format image data is available electro nically for review and comparison. FINDINGS: CEREBRUM: There is moderate severity ventriculomegaly. No evidence of midline shift, mass lesion, hemorrhage o r acute infarction. No extra-axial fluid collections are seen. Chronic appearing symmetric low atten uation seen in the periventricular white matter. POSTERIOR FOSSA: The cerebellum and brainstem are intact. The 4th ventricle is midline. The cerebellopontine angle i s unremarkable. EXTRACRANIAL: The visualized portion of the orbits is intact. SKULL: The calvaria is intact. No evidence of skull fracture. CONCLUSION: 1. No bleed or evidence of acute infarction. 2. Atrophy and chronic white matter changes. 3. Moderate ventriculomegaly, beyond that expected for the degree of atrophy. Normal pressure hydroce phalus would be in the differential. Keshav Burks MD on October 28, 2016 at 20:58 Board Certified Radiologist. This report was verified electronically.
--- NOTE | 2016-10-28 21:48 | EKG ---
Date Performed: 10/28/2016 Time Performed: 17:05:50 PTAGE: 70 years EKG: Sinus rhythm NORMAL ECG PREVIOUS TRACING : 12/11/2007 09.25 No significant change from previous tracing noted. DOCTOR: Priyank Herring Interpretating Date/Time 10/28/2016 21:47:09
[2016-10-28] MEDS: CHLORHEXIDINE 0.12% (ORAL KIT) 15 ML CUP MT SCH (21:51)
[2016-10-28] MEDS: FAMOTIDINE 20 MG TAB PO SCH (21:51)
[2016-10-28] MEDS: SODIUM CHLORIDE 0.9% FLUSH 10 ML FLUSH IV FLUSH SCH (21:51)
[2016-10-28] MEDS: metroNIDAZOLE 500 MG INJ 100 ML IV SCH (21:52)
[2016-10-28] MEDS: AZTREONAM INJ 2,000 MG in SODIUM CHLORIDE 0.9% INJ 100 ML IV SCH (23:33)
[2016-10-28] MEDS: INSULIN ASPART SUPPLEMENTAL SCALE SQ SCH (23:34)
[2016-10-28] MEDS: CHLORHEXIDINE GLUCONATE 2 % 1 PACK (2 CLOTHS) TOP SCH (23:35)
[2016-10-29] VITALS (19 sets, daily range): BP systolic 138–172; BP diastolic 65–79; PULSE 79–109; RESP 14–19; TEMP 97.4–99.7; O2SAT 97–100
[2016-10-29] MEDS: RESP: ALBUTEROL 2.5 MG/IPRATROPIUM 0.5 MG NEB (SCH) NEB ×7 (00:17→23:05)
[2016-10-29] MEDS: PROPOFOL 1000 MG/100 ML INJ 100 ML IV PRN ×6 (00:26→19:38)
[2016-10-29 00:29] LABS: CREATINE KINASE 117 U/L (26-192)
[2016-10-29 04:18] LABS: AUTOMATED NEUTROPHIL # 9.1 TH/MM3 (1.8-7.7); BASOPHIL % 0.1 % (0.0-2.0); HEMATOCRIT 36.5 % (35.0-46.0); HEMO FLAGS DIFF FINAL; LYMPH % 12.2 % (9.0-44.0); LYMPHOCYTE # 1.3 TH/MM3 (1.0-4.8); MEAN CELL VOLUME 89.7 FL (80.0-100.0); MEAN CORPUSCULAR HEMOGLOBIN 29.7 PG (27.0-34.0); MEAN CORPUSCULAR HGB CONC 33.1 % (32.0-36.0); MONO % 0.9 % (0.0-8.0); NEUT % 86.8 % (16.0-70.0); PLATELET COUNT 191 TH/MM3 (150-450); RED BLOOD COUNT 4.07 MIL/MM3 (4.00-5.30); RED CELL DISTRIBUTION WIDTH 14.1 % (11.6-17.2); WHITE BLOOD COUNT 10.4 TH/MM3 (4.0-11.0)
[2016-10-29 04:42] LABS: ALKALINE PHOSPHATASE 50 U/L (45-117); ALT (GPT) 6 U/L (10-53); ANION GAP 11 MEQ/L (5-15); AST (GOT) 7 U/L (15-37); BICARBONATE 22.3 MEQ/L (21.0-32.0); BLOOD UREA NITROGEN 23 MG/DL (7-18); CHLORIDE 106 MEQ/L (98-107); GLOMERULAR FILTRATION RATE 70 ML/MIN (>89); POTASSIUM 4.2 MEQ/L (3.5-5.1); SODIUM (NA) 139 MEQ/L (136-145); TOTAL BILIRUBIN ADULT 0.3 MG/DL (0.2-1.0)
[2016-10-29 04:43] LABS: CREATINE KINASE 87 U/L (26-192)
[2016-10-29] MEDS: SODIUM CHLOR 0.9% 1000 ML INJ 1,000 ML IV SCH ×2 (05:27→17:58)
[2016-10-29] MEDS: INSULIN ASPART SUPPLEMENTAL SCALE SQ SCH ×3 (05:27→17:58)
[2016-10-29] MEDS: metroNIDAZOLE 500 MG INJ 100 ML IV SCH ×3 (05:27→21:33)
[2016-10-29] MEDS: LINEZOLID 600 MG PREMIX 300 ML IV SCH ×2 (06:32→17:58)
--- NOTE | 2016-10-29 07:51 | HHI.CCPN ---
Subjective Remarks/Hospital Course HPI 70-year-old [facility] resident with a medical history significant for dementia, diabetes mellitus, hyperlipidemia, reactive airway disease who was found to have altered mental status at the [facility] for which [facility] was called. Patient was noted to have O2 sats in the 70s. She was very apneic with her head slumped down. Paramedics report of having to hold her head up to have her breathe with the nebulizer treatment in place. Patient was given Solu- Medrol 125 mg IV and 4 nebulizer treatments prior to arrival in the ER for documentation. On arrival in the ER patient was extremely lethargic however was reportedly able to answer some questions. Patient was felt not to be able to protect her airway as well as very hypoxic and hence was intubated by ER physician and placed on mechanical ventilation. Chest x-ray in the ER showed bilateral infiltrates and possible cavitary lesion. She was accepted for admission by critical care medicine service. CT chest was ordered by ER physician. When I evaluated the patient in the ER she was sedated with propofol , orally intubated on mechanical ventilation. History was obtained by reviewing records and discussion with ER physician. 10/29 Patient is sedated with Diprivan and intubated. Afebrile. Objective Vital Signs Date Time Temp Pulse Resp B/P (MAP) Pulse Ox O2 Delivery O2 Flow Rate FiO2 10/29/16 06:00 84 10/29/16 04:05 98 40 10/29/16 04:00 97.4 14 162/73 (102) 10/28/16 18:58 Auto-Vent 10/28/16 16:00 15.00 Intake and Output 10/29/16 10/29/16 10/30/16 08:00 16:00 00:00 Intake Total 1400 ml Output Total 450 ml Balance 950 ml Result Diagram: 10/29/16 0328 10/29/16 0328 Other Results Laboratory Tests Test 10/28/16 15:50 10/28/16 16:15 10/28/16 17:00 10/28/16 17:40 Blood Gas Puncture Site RT RADIAL RT BRACHIAL Blood Gas Patient Temperature 98.6 98.6 Blood Gas HCO3 26 mmol/L 24 mmol/L Blood Gas Base Excess 1.2 mmol/L -1.0 mmol/L Blood Gas Oxygen Saturation 78 % 93 % Arterial Blood pH 7.36 7.34 Arterial Blood Partial Pressure CO2 47 mmHg 45 mmHg Arterial Blood Partial Pressure O2 44 mmHG 77 mmHG Arterial Blood Oxygen Content 14.3 Vol % 15.8 Vol % Arterial Blood Carboxyhemoglobin 1.6 % 1.4 % Arterial Blood Methemoglobin 0.7 % 0.5 % Blood Gas Hemoglobin 13.0 G/DL 12.0 G/DL Blood Gas Inspired Oxygen 21 % 100 % White Blood Count 15.6 TH/MM3 Red Blood Count 4.49 MIL/MM3 Hemoglobin 13.2 GM/DL Hematocrit 40.6 % Mean Corpuscular Volume 90.4 FL Mean Corpuscular Hemoglobin 29.5 PG Mean Corpuscular Hemoglobin Concent 32.6 % Red Cell Distribution Width 14.2 % Platelet Count 230 TH/MM3 Mean Platelet Volume 8.7 FL Neutrophils (%) (Auto) 64.9 % Lymphocytes (%) (Auto) 23.8 % Monocytes (%) (Auto) 7.2 % Eosinophils (%) (Auto) 3.6 % Basophils (%) (Auto) 0.5 % Neutrophils # (Auto) 10.1 TH/MM3 Lymphocytes # (Auto) 3.7 TH/MM3 Monocytes # (Auto) 1.1 TH/MM3 Eosinophils # (Auto) 0.6 TH/MM3 Basophils # (Auto) 0.1 TH/MM3 CBC Comment DIFF FINAL Differential Comment Activated Partial Thromboplast Time 29.2 SEC Blood Urea Nitrogen 24 MG/DL Creatinine 1.00 MG/DL Random Glucose 125 MG/DL Total Protein 7.3 GM/DL Albumin 3.3 GM/DL Calcium Level 8.9 MG/DL Alkaline Phosphatase 58 U/L Aspartate Amino Transf (AST/SGOT) 8 U/L Alanine Aminotransferase (ALT/SGPT) 8 U/L Total Bilirubin 0.3 MG/DL Sodium Level 140 MEQ/L Potassium Level 4.5 MEQ/L Chloride Level 104 MEQ/L Carbon Dioxide Level 28.3 MEQ/L Anion Gap 8 MEQ/L Estimat Glomerular Filtration Rate 55 ML/MIN Total Creatine Kinase 46 U/L Troponin I LESS THAN 0.02 NG/ML B-Type Natriuretic Peptide 12 PG/ML Urine Color YELLOW Urine Turbidity HAZY Urine pH 5.5 Urine Specific [place] 1.018 Urine Protein 300 mg/dL Urine Glucose (UA) TRACE mg/dL Urine Ketones NEG mg/dL Urine Occult Blood SMALL Urine Nitrite NEG Urine Bilirubin NEG Urine Urobilinogen LESS THAN 2.0 MG/DL Urine Leukocyte Esterase MOD Urine RBC 1 /hpf Urine WBC 8 /hpf Urine Bacteria MOD /hpf Microscopic Urinalysis Comment CULTURE INDICATED Oxygen Delivery Device VENTILATOR Blood Gas Ventilator Setting Test 10/28/16 20:00 10/28/16 21:00 10/28/16 23:12 10/29/16 03:28 Lactic Acid Level 1.9 mmol/L Nasal Screen MRSA (PCR) MRSA DETECTED Total Creatine Kinase 117 U/L 87 U/L Troponin I LESS THAN 0.02 NG/ML LESS THAN 0.02 NG/ML White Blood Count 10.4 TH/MM3 Red Blood Count 4.07 MIL/MM3 Hemoglobin 12.1 GM/DL Hematocrit 36.5 % Mean Corpuscular Volume 89.7 FL Mean Corpuscular Hemoglobin 29.7 PG Mean Corpuscular Hemoglobin Concent 33.1 % Red Cell Distribution Width 14.1 % Platelet Count 191 TH/MM3 Mean Platelet Volume 8.6 FL Neutrophils (%) (Auto) 86.8 % Lymphocytes (%) (Auto) 12.2 % Monocytes (%) (Auto) 0.9 % Eosinophils (%) (Auto) 0.0 % Basophils (%) (Auto) 0.1 % Neutrophils # (Auto) 9.1 TH/MM3 Lymphocytes # (Auto) 1.3 TH/MM3 Monocytes # (Auto) 0.1 TH/MM3 Eosinophils # (Auto) 0.0 TH/MM3 Basophils # (Auto) 0.0 TH/MM3 CBC Comment DIFF FINAL Differential Comment Blood Urea Nitrogen 23 MG/DL Creatinine 0.81 MG/DL Random Glucose 209 MG/DL Total Protein 6.3 GM/DL Albumin 2.7 GM/DL Calcium Level 8.0 MG/DL Alkaline Phosphatase 50 U/L Aspartate Amino Transf (AST/SGOT) 7 U/L Alanine Aminotransferase (ALT/SGPT) 6 U/L Total Bilirubin 0.3 MG/DL Sodium Level 139 MEQ/L Potassium Level 4.2 MEQ/L Chloride Level 106 MEQ/L Carbon Dioxide Level 22.3 MEQ/L Anion Gap 11 MEQ/L Estimat Glomerular Filtration Rate 70 ML/MIN Imaging Last Impressions Chest CT 10/28/161813 Signed Impressions: Service Date/Time: Friday, October 28, 2016 18:28 - CONCLUSION: 1. Abnormality on chest radiograph corresponds to a 3.4 x 3.5 cm central right hilar mass/adenopathy with associated postobstructive airspace consolidation in the inferior right upper lobe. There are at least 2 additional pulmonary nodules measuring 13 x 8 mm in the anterior right middle lobe and 8 x 8 mm in the anterior right upper lobe near the apex. 2. 3.9 x 4.3 cm heterogeneous nodule in the right thyroid gland. No significant regional cervical adenopathy. 3. Patchy bilateral lower lobe air space consolidation and diffuse ground glass opacities. Differential considerations include ARDS versus infection versus aspiration. 1. Tyler Selby MD Chest X-Ray 10/28/16 1559 Signed Impressions: Service Date/Time: Friday, October 28, 2016 16:58 - CONCLUSION: 1. Bilateral hilar masslike fullness and with questionable cavitation on the right. I don't have any pertinent priors for comparison. A CT of the chest, preferably with intravenous contrast, is recommended. 2. Patchy mid and lower lung predominant air space consolidation bilaterally and with small pleural effusions. 3. Endotracheal tube tip is approximately 2 cm above the radhika. 4. Nasogastric tube tip in the stomach. Keshav Burks MD Head CT 10/28/16 0000 Signed Impressions: Service Date/Time: Friday, October 28, 2016 20:44 - CONCLUSION: 1. No bleed or evidence of acute infarction. 2. Atrophy and chronic white matter changes. 3. Moderate ventriculomegaly, beyond that expected for the degree of atrophy. Normal pressure hydrocephalus would be in the differential. Keshav Burks MD Objective Remarks HEENT/ Neuro: Sedated, orally intubated, no pallor, no icterus, tongue/ mucosa moist Neck: No JVD Chest/Pulm: on mech vent, good air entry bilaterally, scattered rhonchi, no wheezing CVS: S1-S2 regular, no murmur GI/abdomen: soft, nontender, bowel sounds sluggish Extremities: warm bilaterally, no edema A/P Assessment and Plan 70-year-old female with: Encephalopathy VDRF Severe sepsis Suspect aspiration pneumonia Pulmonary nodules Hilar lymphadenopathy Reactive airway disease Diabetes mellitus Hyperlipidemia Hypertension History of dementia Plan: Neuro: On Diprivan infusion for sedation. Daily sedation vacation. CT brain: No bleed or evidence of acute infarction. Atrophy and chronic white matter changes. Moderate ventriculomegaly, beyond that expected for the degree of atrophy. r/o NPH. NSG is consulted. CV: Monitor HR and BP keep MAP>65mmHg Lactic acid: 1.9. Troponin negative x 3 sets Pulm: Continue with vent support keep sat >92% Bronchodilators, ICU vent bundle. CT chest reviewed. Pulm is consulted. Likely need Bronch with BAL. Follow up on cultures. : Monitor renal function, I/O's, electrolytes replacement per protocol. On NS @84ml/hr GI/liver: Continue with Glucerna and advance to goal as tolerated. On Pepcid 20mg BID for GI prophylaxis ID: Continue with abx ( Aztreonam, Levaquin, Flagyl, Zyvox) monitor for signs of infections ( Fever, WBC). WBC is trending down ID consulted. Follow up on cultures. Strep pneumonia and Legionella urinary Ag pending Heme: Monitor CBC Endocrine: SSI for glycemic control as needed Prophylaxis: Pepcid via OG tube, SCDs/subcutaneous heparin CCT 30 mins Santana Browning MD Oct 29, 2016 07:51
[2016-10-29] MEDS ORDERED: POTASSIUM PHOSPHATE MONOBASIC 500 MG TAB PO PRN (08:00)
[2016-10-29] MEDS ORDERED: MAGNESIUM SULFATE INJ 2 GM in SODIUM CHLORIDE 0.9% INJ 96 ML IV PRN (08:00)
[2016-10-29] MEDS ORDERED: MAGNESIUM SULFATE INJ 4 GM in SODIUM CHLORIDE 0.9% INJ 92 ML IV PRN (08:00)
[2016-10-29] MEDS ORDERED: POTASSIUM CHLORIDE 25 MEQ EFFERVESCENT TAB PO PRN (08:00)
[2016-10-29] MEDS ORDERED: POTASSIUM CHLOR 20 MEQ PREMIX 100 ML IV PRN ×2 (08:00)
[2016-10-29] MEDS ORDERED: POTASSIUM PHOSPHATE MONOBASIC 500 MG TAB PO/TUBE PRN (08:00)
[2016-10-29] MEDS ORDERED: MAGNESIUM OXIDE 400 MG TAB PO PRN (08:00)
[2016-10-29] MEDS ORDERED: SODIUM PHOSPHATE INJ 30 MMOL in SODIUM CHLOR 0.9% 250 ML INJ 240 ML IV PRN (08:00)
[2016-10-29] MEDS ORDERED: POTASSIUM CHLOR 40 MEQ PREMIX 100 ML IV PRN ×2 (08:00)
[2016-10-29] MEDS ORDERED: POTASSIUM PHOSPHATE INJ 30 MMOL in SODIUM CHLOR 0.9% 250 ML INJ 250 ML IV PRN (08:00)
[2016-10-29] MEDS: HEPARIN SODIUM - SQ 10,000 UNITS/ML VIAL SQ SCH ×2 (08:42→15:40)
[2016-10-29] MEDS: FAMOTIDINE 20 MG TAB PO SCH ×2 (08:42→19:38)
[2016-10-29] MEDS: SODIUM CHLORIDE 0.9% FLUSH 10 ML FLUSH IV FLUSH SCH ×2 (08:42→21:33)
[2016-10-29] MEDS: AZTREONAM INJ 2,000 MG in SODIUM CHLORIDE 0.9% INJ 100 ML IV SCH ×2 (08:42→15:40)
[2016-10-29] MEDS: CHLORHEXIDINE 0.12% (ORAL KIT) 15 ML CUP MT SCH ×2 (08:43→21:34)
--- NOTE | 2016-10-29 12:46 | MB ---
cc: AMANDA HOUSER MD DATE OF CONSULTATION: 10/29/[address] Moises Giang. REASON FOR CONSULTATION Pneumonia, cavitary lesion in the lung. HISTORY OF PRESENT ILLNESS This is a 70-year-old white female who was admitted to the hospital on 10/28/2016. The patient [facility] with respiratory distress. She was noted to have low oxygen saturation and difficulty breathing. She was noted to also be very lethargic. The patient was intubated and is now on the ventilator and is unresponsive. Chest x-ray was performed and it shows bilateral hilar mass-like fullness with questionable cavitation on the right and also patchy mid and lower lung predominant airspace consolidation. The patient had low grade fever of 100.1 degrees and the white blood cell count was elevated at 15.6. Cultures have been taken including blood cultures which has no growth so far, urine culture is pending. Sputum culture is pending. Sputum gram stain shows few gram-positive cocci in pairs and clusters. Sputum AFB is pending. Because of the patient's unresponsiveness, on the ventilator, information is obtained from the medical record. I see no recent hospitalizations documented on the electronic medical record on this patient. Her last occurrence on record was on November 24, 2012. PAST MEDICAL HISTORY 1. Dementia. 2. Diabetes mellitus. 3. Hypertension. 4. Thyroid disease. 5. Anxiety, depression. 6. Arthritis. ALLERGIES AMOXICILLIN, PROPOXYPHENE. MEDICATION 1. Levaquin. 2. Aztreonam. 3. Linezolid. 4. Metronidazole. 5. Potassium. 6. Insulin. SOCIAL HISTORY No tobacco or alcohol or illicit drugs. FAMILY HISTORY Unobtainable. REVIEW OF SYSTEMS Unable to obtain since the patient is unresponsive and on the ventilator. PHYSICAL EXAMINATION GENERAL: This is a well-developed female who is on the ventilator and is in no acute distress. VITAL SIGNS: Include temperature of 97.9, BP 172/78, heart rate 82, respirations per ventilator. The patient is on 40% FIO2. HEENT: Head is atraumatic. Unable to fully assess since the patient cannot cooperate. The sclerae is nonicteric. Oropharynx intubated. NECK: Obese, fullness palpated at the right lateral neck. No induration. LUNGS: Rhonchi at both bases. HEART: Regular rate and rhythm without audible murmurs or rubs or gallops. ABDOMEN: Obese, soft, diminished bowel sounds. No tenderness appreciated. RECTAL: Not performed. EXTREMITIES: No clubbing or cyanosis or edema. SKIN: No rash. NEURO: Unable to fully assess. The patient withdraws extremities to noxious stimuli. PSYCHE: Unable to assess. LABORATORY DATA WBC 10.4, platelets 191, 86% neutrophils, 12% lymphocytes, creatinine 0.81, BUN 23, sodium 139. LFTs normal. Urinalysis revealed 8 white cells and moderate bacteria. IMAGING STUDIES CT scan of the chest reveals 3.4 x 3.5 cm central right hilar mass / adenopathy with associated postobstructive airspace consolidation in the inferior right upper lobe. At least two additional pulmonary nodules measuring 13 x 8 mm in the right anterior middle lobe and 8.8 x 8 mm in the anterior right upper lobe. There was also a heterogeneous nodule in the right thyroid gland approximately 3.9 x 4.3 cm and patchy bilateral lower lobe airspace consolidation and diffuse ground-glass opacities. IMPRESSION 1. Bilateral pneumonia with hilar cavitary mass. Sputum gram stain showing gram-positive cocci. The patient also has other lung nodules and also a thyroid lesion and hence, potentially may have malignancy. 2. Acute respiratory failure. 3. Rule out tuberculosis given the cavitary nature of the lung lesion. RECOMMENDATIONS 1. Continue linezolid. 2. Continue Levaquin. 3. Discontinue metronidazole. 4. Continue aztreonam. 5. Monitor sputum culture. 6. Follow blood culture. 7. Monitor clinical status and any additional information available if further investigation is performed such as bronchoscopy. 8. Monitor sputum AFB and also AFB PCR. Thank you for this consultation. The patient's progress will be monitored and further recommendations will be made on followup if necessary. Amanda Houser MD FD/GOLDIE /11:32 AM /12:25 PM
--- NOTE | 2016-10-29 13:58 | MB ---
cc: VIJAY THOMASON M.D., KASHYAP M.D. ANEJA, ARJUN DATE OF CONSULTATION: 10/29/2016 REASON FOR CONSULTATION Possible normal pressure hydrocephalus. HISTORY OF PRESENT ILLNESS A 70-year-old female who was admitted yesterday for respiratory failure with hypoxia. She was also found to have pneumonia with a cavitary lesion in the lung. Work-up included a CT scan of the head which reveals moderate ventriculomegaly. The radiologist mentioned this could be related to either atrophy or possible normal pressure hydrocephalus. The patient is intubated and sedated and cannot relate a history to delineate whether she has any normal pressure hydrocephalus related symptoms. PAST MEDICAL HISTORY 1. Dementia. 2. Diabetes mellitus. 3. Hypertension. 4. Thyroid disease. 5. Arthritis. 6. Anxiety. 7. Depression. MEDICATIONS Medications prior to admission: 1. Albuterol inhaler. 2. Amlodipine. 3. Atorvastatin. 4. Zithromax. 5. Dulcolax. 6. Carvedilol. 7. Klonopin. 8. Lortab. 9. Insulin. 10.Milk of magnesia. 11.Miconazole vaginal. 12.Seroquel. ALLERGIES 1. AMOXICILLIN. 2. PROPOXYPHENE. LABORATORY STUDIES White blood cell count 10.4, hemoglobin 12.1, platelet count 191. Sodium 139, potassium 4.2, BUN 23, creatinine 0.81, glucose 209. Urinalysis suggests a urinary tract infection also. PHYSICAL EXAMINATION VITAL SIGNS: Temperature 97.9, pulse 83, respiratory rate 14, blood pressure 172/78. Oxygen saturation is 99% on 40% FIO2. HEAD: Normocephalic, atraumatic. NECK: Supple. CHEST: Scattered rhonchi bilaterally. HEART: Regular rate and rhythm. Normal S1, S2. ABDOMEN: Soft, nontender. She is obese. EXTREMITIES: No cyanosis or edema. NEUROLOGIC: She is intubated and sedated but does open her eyes to verbal command. Pupils are equal and reactive. She tracks and looks around. She moves all four extremities and follows commands, squeezes my hands bilaterally and wiggles the toes in both feet. IMPRESSION 1. Respiratory failure with associated hypoxia from bilateral pneumonia with cavitary lesions. 2. Moderate ventriculomegaly with the possibility of normal pressure hydrocephalus, although this is hard to delineate since we cannot assess her clinically. PLAN At this point her respiratory condition and management is of paramount importance. Any work-up or treatment for possible normal pressure hydrocephalus can be done on an elective basis. Once her medical condition is stabilized we can also evaluate and assess whether she has any symptoms related to normal pressure hydrocephalus. I will obtain an MRI scan also to further evaluate this ventriculomegaly. Again, at this point no urgent neurosurgical intervention is needed. MD BEAN Gonzalez/MABEL /1:28 PM /1:40 PM
--- NOTE | 2016-10-29 16:19 | RADRPT ---
EXAM DATE/TIME: 10/29/2016 15:32 [facility] COMPARISON: No previous studies available for comparison. INDICATIONS : Clear for mri MEDICAL HISTORY : not known SURGICAL HISTORY : not known ENCOUNTER: Initial ACUITY: 1 day PAIN SCORE: Non-responsive. LOCATION: Bilateral abdomen FINDINGS: The there is no radiopaque foreign bodies. Extensive vascular calcifications are noted. Rectal prob e is evident. CONCLUSION: Negative for radiopaque foreign bodies. Jacoby Torre MD FACR on October 29, 2016 at 16:17 Board Certified Radiologist. This report was verified electronically.
[2016-10-29] MEDS: LEVOFLOXACIN 500 MG PREMIX INJ 100 ML IV SCH (19:35)
[2016-10-29 23:46] LABS: M. TUBERCULOSIS PCR NOT DETECTED (NOT DETECT)
[2016-10-30] VITALS (21 sets, daily range): BP systolic 117–179; BP diastolic 56–80; PULSE 80–104; RESP 14–26; TEMP 98.3–99.8; O2SAT 92–100
[2016-10-30] MEDS: HEPARIN SODIUM - SQ 10,000 UNITS/ML VIAL SQ SCH ×4 (00:06→23:42)
[2016-10-30] MEDS: PROPOFOL 1000 MG/100 ML INJ 100 ML IV PRN ×7 (00:07→23:43)
[2016-10-30] MEDS: AZTREONAM INJ 2,000 MG in SODIUM CHLORIDE 0.9% INJ 100 ML IV SCH ×4 (00:38→23:42)
[2016-10-30] MEDS: SODIUM CHLOR 0.9% 1000 ML INJ 1,000 ML IV SCH (00:38)
[2016-10-30] MEDS: RESP: ALBUTEROL 2.5 MG/IPRATROPIUM 0.5 MG NEB (SCH) NEB ×5 (04:00→23:53)
[2016-10-30] MEDS: CHLORHEXIDINE GLUCONATE 2 % 1 PACK (2 CLOTHS) TOP SCH (04:00)
[2016-10-30] MEDS: metroNIDAZOLE 500 MG INJ 100 ML IV SCH ×3 (05:17→21:44)
[2016-10-30] MEDS: INSULIN ASPART SUPPLEMENTAL SCALE SQ SCH ×5 (05:43→23:42)
--- NOTE | 2016-10-30 06:09 | MB ---
cc: NEAL DESIR DATE OF CONSULTATION 10/29/[address] Giang REASON FOR CONSULTATION Respiratory arrest. HISTORY OF PRESENT ILLNESS The patient is a 70-year-old female with history of diabetes mellitus, dementia, hyperlipidemia. The patient was transferred from the residential. She was found to be hypoxic and she was found down. The patient was brought to the emergency room. She was given aerosol treatment, IV Solu-Medrol. She did not get better and she was getting more hypoxic and respiratory acidosis. The patient was intubated. She was transferred to the intensive care unit. She had a workup done. Her blood gas on 100% FIO2 pH was 7.34, PCO2 45, pO2 77. CBC showed WBC count of 10.4, hemoglobin 12.1, hematocrit 36.5, platelet count 191. Sodium 139, potassium 4.0, chloride 106, carbon dioxide 22, BUN 23, creatinine 0.8. CT scan of the head shows no bleed. Has atrophy chronic white matter and moderate ventriculomegaly. CT scan of the chest shows central right hilar mass or adenopathy associated with postobstructive airspace disease. She also has pulmonary nodules, patchy bilateral lower lobe infiltrate. PAST MEDICAL HISTORY 1. History of dementia. 2. Diabetes mellitus. 3. Hypertension. 4. Anxiety depression. MEDICATIONS 1. Levaquin IV. 2. Heparin 5000 q. 8 hours. 3. Potassium supplement. 4. Sodium phosphate. 5. aztreonam 2 grams q. 8-hours 6. Fentanyl drip. 7. Flagyl IV. 8. Albuterol/Atrovent nebulizer treatment. 9. Linezolid q. 12 hours. ALLERGIES AMOXICILLIN. PROPOXYPHENE. SOCIAL HISTORY No tobacco or alcohol or illicit drugs. REVIEW OF SYSTEMS Unable to assess. PHYSICAL EXAMINATION GENERAL: An elderly female on ventilator, sedated. VITAL SIGNS: Blood pressure 148/72, heart rate 96, respirations 18. Temperature 98.7. Currently she is on assist control 14, FIO2 40%. HEENT EXAMINATION: Pupils react to light. She is orally intubated. NECK: JVP not raised. CHEST: She has scattered rales. CV: S1 and S2 normal. ABDOMEN: Benign. EXTREMITIES: No edema. IMPRESSION 1. Ventilator dependent respiratory failure. 2. Patchy lung infiltrate. 3. Right hilar mass versus postobstructive pneumonia. 4. Ventriculomegaly. Possible normal pressure hydrocephalus. 5. Dementia. PLAN 1. The patient will be maintained on ventilator. 2. Cultures are sent to rule out AFB. 3. Continue present antibiotic, aerosol treatment and sedation. 4. Wean from the vent as she tolerates. 5. Continue aerosol treatment. Further treatment will depend on her course in the hospital. Thank you Dr. Giang for this consult. MD ADRIAN Flores/ALEJANDRO /6:38 PM /5:38 AM
[2016-10-30 06:36] LABS: AUTOMATED NEUTROPHIL # 8.6 TH/MM3 (1.8-7.7); BASOPHIL % 0.3 % (0.0-2.0); EOSINOPHIL # 0.1 TH/MM3 (0-0.4); EOSINOPHIL % 0.7 % (0.0-4.0); HEMATOCRIT 34.6 % (35.0-46.0); HEMO FLAGS DIFF FINAL; LYMPH % 23.2 % (9.0-44.0); MEAN CELL VOLUME 89.9 FL (80.0-100.0); MEAN CORPUSCULAR HEMOGLOBIN 29.6 PG (27.0-34.0); NEUT % 66.8 % (16.0-70.0); PLATELET COUNT 219 TH/MM3 (150-450); RED BLOOD COUNT 3.85 MIL/MM3 (4.00-5.30); RED CELL DISTRIBUTION WIDTH 13.9 % (11.6-17.2); WHITE BLOOD COUNT 12.9 TH/MM3 (4.0-11.0)
[2016-10-30 06:51] LABS: BICARBONATE 24.6 MEQ/L (21.0-32.0)
[2016-10-30] MEDS: LINEZOLID 600 MG PREMIX 300 ML IV SCH ×2 (06:52→17:35)
[2016-10-30] MEDS: CHLORHEXIDINE 0.12% (ORAL KIT) 15 ML CUP MT SCH ×2 (08:00→20:15)
--- NOTE | 2016-10-30 08:17 | HHI.CCPN ---
Subjective Remarks/Hospital Course HPI 70-year-old halfway resident with a medical history significant for dementia, diabetes mellitus, hyperlipidemia, reactive airway disease who was found to have altered mental status at the halfway for which EMS was called. Patient was noted to have O2 sats in the 70s. She was very apneic with her head slumped down. Paramedics report of having to hold her head up to have her breathe with the nebulizer treatment in place. Patient was given Solu- Medrol 125 mg IV and 4 nebulizer treatments prior to arrival in the ER for documentation. On arrival in the ER patient was extremely lethargic however was reportedly able to answer some questions. Patient was felt not to be able to protect her airway as well as very hypoxic and hence was intubated by ER physician and placed on mechanical ventilation. Chest x-ray in the ER showed bilateral infiltrates and possible cavitary lesion. She was accepted for admission by critical care medicine service. CT chest was ordered by ER physician. When I evaluated the patient in the ER she was sedated with propofol , orally intubated on mechanical ventilation. History was obtained by reviewing records and discussion with ER physician. 10/29 Patient is sedated with Diprivan and intubated. Afebrile. 10/30 Patient remains sedated and intubated. T:99.7 last night. Objective Vital Signs Date Time Temp Pulse Resp B/P (MAP) Pulse Ox O2 Delivery O2 Flow Rate FiO2 10/30/16 06:00 101 10/30/16 04:11 99 40 10/30/16 04:00 99.4 14 127/62 (83) 10/28/16 18:58 Auto-Vent 10/28/16 16:00 15.00 Intake and Output 10/30/16 10/30/16 10/31/16 08:00 16:00 00:00 Intake Total 1633 ml Output Total 1500 ml Balance 133 ml Result Diagram: 10/30/16 0510 10/30/16 0510 Other Results Laboratory Tests Test 10/29/16 17:05 10/30/16 05:10 M. tuberculosis Complex DNA (PCR) NOT DETECTED White Blood Count 12.9 TH/MM3 Red Blood Count 3.85 MIL/MM3 Hemoglobin 11.4 GM/DL Hematocrit 34.6 % Mean Corpuscular Volume 89.9 FL Mean Corpuscular Hemoglobin 29.6 PG Mean Corpuscular Hemoglobin Concent 33.0 % Red Cell Distribution Width 13.9 % Platelet Count 219 TH/MM3 Mean Platelet Volume 9.1 FL Neutrophils (%) (Auto) 66.8 % Lymphocytes (%) (Auto) 23.2 % Monocytes (%) (Auto) 9.0 % Eosinophils (%) (Auto) 0.7 % Basophils (%) (Auto) 0.3 % Neutrophils # (Auto) 8.6 TH/MM3 Lymphocytes # (Auto) 3.0 TH/MM3 Monocytes # (Auto) 1.2 TH/MM3 Eosinophils # (Auto) 0.1 TH/MM3 Basophils # (Auto) 0.0 TH/MM3 CBC Comment DIFF FINAL Differential Comment Blood Urea Nitrogen 19 MG/DL Creatinine 0.83 MG/DL Random Glucose 225 MG/DL Calcium Level 7.7 MG/DL Sodium Level 142 MEQ/L Potassium Level 4.0 MEQ/L Chloride Level 110 MEQ/L Carbon Dioxide Level 24.6 MEQ/L Anion Gap 7 MEQ/L Estimat Glomerular Filtration Rate 68 ML/MIN Imaging Last Impressions Abdomen X-Ray 10/29/16 0000 Signed Impressions: Service Date/Time: Saturday, October 29, 2016 15:32 - CONCLUSION: Negative for radiopaque foreign bodies. Jacoby Torre MD FACR Chest CT 10/28/16 1814 Signed Impressions: Service Date/Time: Friday, October 28, 2016 18:28 - CONCLUSION: 1. Abnormality on chest radiograph corresponds to a 3.4 x 3.5 cm central right hilar mass/adenopathy with associated postobstructive airspace consolidation in the inferior right upper lobe. There are at least 2 additional pulmonary nodules measuring 13 x 8 mm in the anterior right middle lobe and 8 x 8 mm in the anterior right upper lobe near the apex. 2. 3.9 x 4.3 cm heterogeneous nodule in the right thyroid gland. No significant regional cervical adenopathy. 3. Patchy bilateral lower lobe air space consolidation and diffuse ground glass opacities. Differential considerations include ARDS versus infection versus aspiration. 1. Tyler Selby MD Chest X-Ray 10/28/16 1559 Signed Impressions: Service Date/Time: Friday, October 28, 2016 16:58 - CONCLUSION: 1. Bilateral hilar masslike fullness and with questionable cavitation on the right. I don't have any pertinent priors for comparison. A CT of the chest, preferably with intravenous contrast, is recommended. 2. Patchy mid and lower lung predominant air space consolidation bilaterally and with small pleural effusions. 3. Endotracheal tube tip is approximately 2 cm above the radhika. 4. Nasogastric tube tip in the stomach. Keshav Burks MD Head CT 10/28/16 0000 Signed Impressions: Service Date/Time: Friday, October 28, 2016 20:44 - CONCLUSION: 1. No bleed or evidence of acute infarction. 2. Atrophy and chronic white matter changes. 3. Moderate ventriculomegaly, beyond that expected for the degree of atrophy. Normal pressure hydrocephalus would be in the differential. Keshav Burks MD Objective Remarks HEENT/ Neuro: Sedated, orally intubated, no pallor, no icterus, tongue/ mucosa moist Neck: No JVD Chest/Pulm: on mech vent, good air entry bilaterally, scattered rhonchi, no wheezing CVS: S1-S2 regular, no murmur GI/abdomen: soft, nontender, bowel sounds sluggish Extremities: warm bilaterally, no edema A/P Assessment and Plan 70-year-old female with: Encephalopathy VDRF Severe sepsis Suspect aspiration pneumonia Pulmonary nodules Hilar lymphadenopathy Reactive airway disease Diabetes mellitus Hyperlipidemia Hypertension History of dementia Plan: Neuro: On Diprivan infusion for sedation. Daily sedation vacation. CT brain: No bleed or evidence of acute infarction. Atrophy and chronic white matter changes. Moderate ventriculomegaly, beyond that expected for the degree of atrophy. For MRI brain today- NSG is following- Dr. Hernandez CV: Place on Lopressor 25mg [id number] HR and BP keep MAP>65mmHg Lactic acid: 1.9. Troponin negative x 3 sets Pulm: Continue with vent support keep sat >92% Bronchodilators, ICU vent bundle. Check CXR, SBT daily as see. CT chest reviewed. Pulm is following- Dr. Madison, might need bronch with BAL. Follow up on cultures. : Monitor renal function, I/O's, electrolytes replacement per protocol. d/c IVF GI/liver: Continue with Glucerna and advance to goal as tolerated. On Pepcid 20mg BID for GI prophylaxis ID: Continue with abx ( Aztreonam, Levaquin, Flagyl, Zyvox) monitor for signs of infections ( Fever, WBC). Follow up on cultures. Strep pneumonia urinary Ag negative. Check legionella urinary Ag ID is following- Dr. Zarate Urine cx 10/28: GNR Heme: Monitor CBC Endocrine: SSI for glycemic control(medium scale) Prophylaxis: Pepcid via OG tube, SCDs/subcutaneous heparin CCT 30 mins Santana Browning MD Oct 30, 2016 08:17
[2016-10-30] MEDS: FAMOTIDINE 20 MG TAB PO SCH ×2 (09:00→20:15)
--- NOTE | 2016-10-30 09:41 | RADRPT ---
EXAM DATE/TIME: 10/30/2016 08:56 [facility] COMPARISON: CHEST SINGLE AP, October 28, 2016, 16:58. INDICATIONS : Ventilator dependent respiratory disease MEDICAL HISTORY : Hypertension. Diabetes mellitus type II. dementia SURGICAL HISTORY : None. ENCOUNTER: Initial ACUITY: 2 days PAIN SCORE: Non-responsive. LOCATION: Bilateral chest FINDINGS: A single view of the chest demonstrates diminished lung planes with interstitial prominence. Right hi lar prominence again seen. Endotracheal tube and nasogastric tube are unchanged. Heart mildly enlarge d.. Osseous structures are intact. CONCLUSION: 1. Cardiomegaly and interstitial edema. 2. Right hilar prominence again seen. Edwin Jacome MD on October 30, 2016 at 9:38 Board Certified Radiologist. This report was verified electronically.
[2016-10-30] MEDS: SODIUM CHLORIDE 0.9% FLUSH 10 ML FLUSH IV FLUSH SCH ×2 (09:50→20:15)
--- NOTE | 2016-10-30 11:26 | HHI.IDPN ---
Note Infectious Disease Note Patient on the vent. Awake and responsive. Afebrile. Admitted with respiratory distress. PAST MEDICAL HISTORY 1. Dementia. 2. Diabetes mellitus. 3. Hypertension. 4. Thyroid disease. 5. Anxiety, depression. 6. Arthritis. ALLERGIES AMOXICILLIN, PROPOXYPHENE. MEDICATION 1. Levaquin. 2. Aztreonam. 3. Linezolid. OBJECTIVE: Vital Signs Date Time Temp Pulse Resp B/P (MAP) Pulse Ox O2 Delivery O2 Flow Rate FiO2 10/30/16 10:00 100 10/30/16 08:30 98 40 10/30/16 08:00 98 10/30/16 08:00 40 10/30/16 08:00 99.1 98 18 135/65 (88) 100 10/30/16 06:00 101 10/30/16 04:11 99 40 10/30/16 04:00 99.4 87 14 127/62 (83) 99 10/30/16 04:00 40 10/30/16 04:00 87 10/30/16 03:15 14 10/30/16 02:00 92 10/30/16 01:12 92 40 10/30/16 00:00 104 10/30/16 00:00 98.3 104 15 179/80 (113) 95 10/30/16 00:00 40 10/29/16 22:02 100 40 10/29/16 22:00 107 10/29/16 20:00 99.7 109 19 166/79 (108) 100 10/29/16 20:00 109 10/29/16 20:00 40 10/29/16 19:45 99 40 10/29/16 18:00 102 10/29/16 16:00 40 10/29/16 16:00 98.7 96 14 148/72 (97) 100 10/29/16 16:00 96 10/29/16 15:37 99 40 10/29/16 14:00 79 10/29/16 12:00 40 10/29/16 12:00 101 10/29/16 12:00 99.6 101 14 138/65 (89) 100 Laboratory Tests Test 10/28/16 16:15 10/29/16 03:28 10/30/16 05:10 White Blood Count 15.6 TH/MM3 10.4 TH/MM3 12.9 TH/MM3 Red Blood Count 4.49 MIL/MM3 4.07 MIL/MM3 3.85 MIL/MM3 Hemoglobin 13.2 GM/DL 12.1 GM/DL 11.4 GM/DL Hematocrit 40.6 % 36.5 % 34.6 % Mean Corpuscular Volume 90.4 FL 89.7 FL 89.9 FL Mean Corpuscular Hemoglobin 29.5 PG 29.7 PG 29.6 PG Mean Corpuscular Hemoglobin Concent 32.6 % 33.1 % 33.0 % Red Cell Distribution Width 14.2 % 14.1 % 13.9 % Platelet Count 230 TH/MM3 191 TH/MM3 219 TH/MM3 Mean Platelet Volume 8.7 FL 8.6 FL 9.1 FL Neutrophils (%) (Auto) 64.9 % 86.8 % 66.8 % Lymphocytes (%) (Auto) 23.8 % 12.2 % 23.2 % Monocytes (%) (Auto) 7.2 % 0.9 % 9.0 % Eosinophils (%) (Auto) 3.6 % 0.0 % 0.7 % Basophils (%) (Auto) 0.5 % 0.1 % 0.3 % Neutrophils # (Auto) 10.1 TH/MM3 9.1 TH/MM3 8.6 TH/MM3 Lymphocytes # (Auto) 3.7 TH/MM3 1.3 TH/MM3 3.0 TH/MM3 Monocytes # (Auto) 1.1 TH/MM3 0.1 TH/MM3 1.2 TH/MM3 Eosinophils # (Auto) 0.6 TH/MM3 0.0 TH/MM3 0.1 TH/MM3 Basophils # (Auto) 0.1 TH/MM3 0.0 TH/MM3 0.0 TH/MM3 CBC Comment DIFF FINAL DIFF FINAL DIFF FINAL Differential Comment Laboratory Tests Test 10/28/16 16:15 10/28/16 20:00 10/28/16 23:12 10/29/16 03:28 Blood Urea Nitrogen 24 MG/DL 23 MG/DL Creatinine 1.00 MG/DL 0.81 MG/DL Random Glucose 125 MG/DL 209 MG/DL Total Protein 7.3 GM/DL 6.3 GM/DL Albumin 3.3 GM/DL 2.7 GM/DL Calcium Level 8.9 MG/DL 8.0 MG/DL Alkaline Phosphatase 58 U/L 50 U/L Aspartate Amino Transf (AST/SGOT) 8 U/L 7 U/L Alanine Aminotransferase (ALT/SGPT) 8 U/L 6 U/L Total Bilirubin 0.3 MG/DL 0.3 MG/DL Sodium Level 140 MEQ/L 139 MEQ/L Potassium Level 4.5 MEQ/L 4.2 MEQ/L Chloride Level 104 MEQ/L 106 MEQ/L Carbon Dioxide Level 28.3 MEQ/L 22.3 MEQ/L Anion Gap 8 MEQ/L 11 MEQ/L Estimat Glomerular Filtration Rate 55 ML/MIN 70 ML/MIN Total Creatine Kinase 46 U/L 117 U/L 87 U/L Troponin I LESS THAN 0.02 NG/ML LESS THAN 0.02 NG/ML LESS THAN 0.02 NG/ML B-Type Natriuretic Peptide 12 PG/ML Lactic Acid Level 1.9 mmol/L Phosphorus Level 2.1 MG/DL Test 10/30/16 05:10 Blood Urea Nitrogen 19 MG/DL Creatinine 0.83 MG/DL Random Glucose 225 MG/DL Calcium Level 7.7 MG/DL Sodium Level 142 MEQ/L Potassium Level 4.0 MEQ/L Chloride Level 110 MEQ/L Carbon Dioxide Level 24.6 MEQ/L Anion Gap 7 MEQ/L Estimat Glomerular Filtration Rate 68 ML/MIN Microbiology Date/Time Source Procedure Growth Status 10/28/16 16:15 Blood Peripheral Aerobic Blood Culture - Preliminary NO GROWTH IN 2 DAYS Resulted 10/28/16 16:15 Blood Peripheral Anaerobic Blood Culture - Preliminary NO GROWTH IN 2 DAYS Resulted 10/28/16 16:10 Blood Peripheral Aerobic Blood Culture - Preliminary NO GROWTH IN 2 DAYS Resulted 10/28/16 16:10 Blood Peripheral Anaerobic Blood Culture - Preliminary NO GROWTH IN 2 DAYS Resulted 10/28/16 21:00 Sputum Endotracheal Acid Fast Stain - Final NO ACID FAST BACILLI SEEN Resulted 10/28/16 21:00 Sputum Endotracheal Mycobacterial Culture Pending Resulted 10/28/16 21:00 Sputum Endotracheal Gram Stain - Final Complete 10/28/16 21:00 Sputum Endotracheal Sputum Culture - Final HEAVY GROWTH NORMAL RESPIRATORY SYLWIA Complete 10/28/16 17:00 Urine Catheterized Urine Streptococcus pneumoniae Antigen (M - Final PRESUMPTIVE NEGATIVE FOR STREPTOCOCCU... Complete 10/28/16 17:00 Urine Clean Catch Urine Culture - Final Escherichia Coli Complete 10/28/16 17:00 Other - Final Complete IMAGING: Chest X-Ray 10/30/16 0000 Signed Impressions: Service Date/Time: Sunday, October 30, 2016 08:56 - CONCLUSION: 1. Cardiomegaly and interstitial edema. 2. Right hilar prominence again seen. Edwin Jacome MD Abdomen X-Ray 10/29/16 0000 Signed Impressions: Service Date/Time: Saturday, October 29, 2016 15:32 - CONCLUSION: Negative for radiopaque foreign bodies. Jacoby Torre MD FACR Chest CT 10/28/161813 Signed Impressions: Service Date/Time: Friday, October 28, 2016 18:28 - CONCLUSION: 1. Abnormality on chest radiograph corresponds to a 3.4 x 3.5 cm central right hilar mass/adenopathy with associated postobstructive airspace consolidation in the inferior right upper lobe. There are at least 2 additional pulmonary nodules measuring 13 x 8 mm in the anterior right middle lobe and 8 x 8 mm in the anterior right upper lobe near the apex. 2. 3.9 x 4.3 cm heterogeneous nodule in the right thyroid gland. No significant regional cervical adenopathy. 3. Patchy bilateral lower lobe air space consolidation and diffuse ground glass opacities. Differential considerations include ARDS versus infection versus aspiration. 1. Tyler Selby MD Head CT 10/28/16 0000 Signed Impressions: Service Date/Time: Friday, October 28, 2016 20:44 - CONCLUSION: 1. No bleed or evidence of acute infarction. 2. Atrophy and chronic white matter changes. 3. Moderate ventriculomegaly, beyond that expected for the degree of atrophy. Normal pressure hydrocephalus would be in the differential. Keshav Burks MD PHYSICAL EXAMINATION GENERAL: On the ventilator and is in no acute distress. NECK: Obese, fullness palpated at the right lateral neck. No induration. LUNGS: Rhonchi at the bases. HEART: Regular rate and rhythm without audible murmurs or rubs or gallops. ABDOMEN: Obese, soft, diminished bowel sounds. No tenderness appreciated. EXTREMITIES: No clubbing or cyanosis or edema. SKIN: No rash. NEURO: Alert. Moves all extremities. PSYCHE: Unable to assess. IMPRESSION 1. Bilateral pneumonia with hilar cavitary mass. Sputum gram stain showing gram-positive cocci. The patient also has other lung nodules and also a thyroid lesion and hence, potentially may have malignancy. AFB smear negative. 2. Acute respiratory failure. 3. UTI - E.coli. (S) to Aztreonam. Some clinical improvement. RECOMMENDATIONS 1. Continue linezolid. 2. Continue Levaquin. 3. Continue aztreonam. 4. Monitor sputum culture. 5. Monitor blood culture. Francisco Zarate MD Oct 30, 2016 11:26
--- NOTE | 2016-10-30 12:29 | RADRPT ---
EXAM DATE/TIME: 10/30/2016 11:38 [facility] COMPARISON: CT BRAIN W/O CONTRAST, October 28, 2016, 20:44. INDICATIONS : Hydrocephalus. MEDICAL HISTORY : Osteoarthritis. Diabetes mellitus type 2. Hypertension. SURGICAL HISTORY : Cleared by rad. ENCOUNTER: Initial ACUITY: 3 day PAIN SCORE: Nonresponsive. LOCATION: head TECHNIQUE: Multiplanar, multisequence MRI of the brain was performed without contrast. FINDINGS: CEREBRUM: The ventricles are dilated. No evidence of midline shift, mass lesion, hemorrhage or acute infarctio n. No extraaxial fluid collections are seen. The pituitary gland and suprasellar cistern are normal in configuration. WHITE MATTER: Extensive areas of high T2 signal abnormalities are seen in the white matter. POSTERIOR FOSSA: The cerebellum and brainstem are intact. The 4th ventricle is midline. The cerebellopontine angle is unremarkable. The cerebellar tonsils are normal in position. DIFFUSION IMAGING: No focal areas of restricted diffusion are seen. No evidence of acute infarction. EXTRACRANIAL: The visualized portions of the orbits and paranasal sinuses are unremarkable. CONCLUSION: 1. Ventriculomegaly/hydrocephalus, differential includes normal pressure hydrocephalus and aqueductal stenosis. 2. Extensive nonspecific white matter changes. Edwin Jacome MD on October 30, 2016 at 12:25 Board Certified Radiologist. This report was verified electronically.
[2016-10-30] MEDS: hydrALAZINE HCL 20 MG/ML VIAL IV PUSH PRN (15:03)
[2016-10-30] MEDS: METOPROLOL TARTRATE 25 MG TAB PO SCH ×2 (15:09→20:15)
--- NOTE | 2016-10-30 20:09 | HHI.PR ---
Subjective Remarks 70 YOWF with VDRF,Pneumonia, ? Aspiration Sedated with Fentanyl On PRVC,AC 14, Fi02 40% No Fever Objective Vital Signs Vital Signs Date Time Temp Pulse Resp B/P (MAP) Pulse Ox O2 Delivery O2 Flow Rate FiO2 10/30/16 19:55 98 40 10/30/16 18:00 97 10/30/16 16:26 99 40 10/30/16 16:00 94 10/30/16 16:00 40 10/30/16 16:00 98.4 94 22 139/65 (89) 99 10/30/16 14:00 90 10/30/16 13:00 99.5 80 14 117/56 (76) 95 10/30/16 12:23 95 40 10/30/16 12:18 40 10/30/16 12:00 101 10/30/16 12:00 40 10/30/16 11:08 100 100 10/30/16 10:00 100 10/30/16 08:30 98 40 10/30/16 08:00 98 10/30/16 08:00 40 10/30/16 08:00 99.1 98 18 135/65 (88) 100 10/30/16 06:00 101 10/30/16 04:11 99 40 10/30/16 04:00 99.4 87 14 127/62 (83) 99 10/30/16 04:00 40 10/30/16 04:00 87 10/30/16 03:15 14 10/30/16 02:00 92 10/30/16 01:12 92 40 10/30/16 00:00 104 10/30/16 00:00 98.3 104 15 179/80 (113) 95 10/30/16 00:00 40 10/29/16 22:02 100 40 10/29/16 22:00 107 I/O 10/29/16 10/29/16 10/29/16 10/30/16 10/30/16 10/30/16 07:00 15:00 23:00 07:00 15:00 23:00 Intake Total 1400 ml 500 ml 2193 ml 1633 ml 400 ml 343 ml Output Total 450 ml 1000 ml 1500 ml 1325 ml Balance 950 ml 500 ml 1193 ml 133 ml 400 ml -982 ml Intake IV Total 1400 ml 500 ml 1840 ml 1300 ml 400 ml Tube Feeding 0 ml 233 ml 333 ml 343 ml Other 120 ml Output Urine Total 450 ml 1000 ml 1500 ml 1325 ml # Bowel Movements 0 0 Result Diagram: 10/30/1650910/30/16509 Objective Remarks GENERAL: MBMN WF, intubated, sedated SKIN: Warm and dry. HEAD: Normocephalic. EYES: No scleral icterus. No injection or drainage. NECK: Supple, trachea midline. No JVD or lymphadenopathy. CARDIOVASCULAR: Regular rate and rhythm without murmurs, gallops, or rubs. RESPIRATORY: Breath sounds equal bilaterally. No accessory muscle use. GASTROINTESTINAL: Abdomen soft, non-tender, nondistended. MUSCULOSKELETAL: No cyanosis, or edema. BACK: Nontender without obvious deformity. No CVA tenderness. A/P Assessment and Plan VDRF Pneumonia Aspiration DM Dementia Ventriculomegaly PLAN: Vent Support PRVC-AC 14, Fi02 40% Cont Abx Check cultures Sedation with Fentanyl Aerosol nebs SQ Heparin Luis Madison MD Oct 30, 2016 20:09
[2016-10-30] MEDS: LEVOFLOXACIN 500 MG PREMIX INJ 100 ML IV SCH (20:14)
[2016-10-31] VITALS (18 sets, daily range): BP systolic 143–175; BP diastolic 62–125; PULSE 91–119; RESP 14–34; TEMP 98.5–100.2; O2SAT 92–100
--- NOTE | 2016-10-31 03:38 | RADRPT ---
EXAM DATE/TIME: 10/31/2016 02:38 [facility] COMPARISON: CHEST SINGLE AP, October 30, 2016, 8:56. INDICATIONS : Shortness of breath. MEDICAL HISTORY : Osteoarthritis. Diabetes mellitus type 2. Hypertension SURGICAL HISTORY : None. ENCOUNTER: Subsequent ACUITY: 4 - 6 days PAIN SCORE: Non-responsive. LOCATION: Bilateral chest FINDINGS: A single portable frontal view of chest is blurred by motion artifact. Patient is obliqued towards th e left. Tip of endotracheal tube approximately 4 cm from the radhika. Nasogastric tube tip in the body the stomach. Multiple wires overlie the chest. Low lung volumes. No gross infiltrate or effusion. He art is normal in size. Subluxation involving the right shoulder joint. CONCLUSION: Limited study by motion artifact. Lines and tubes. Grossly clear lungs. Eric Levine Jr., MD on October 31, 2016 at 3:36 Board Certified Radiologist. This report was verified electronically.
[2016-10-31] MEDS: CHLORHEXIDINE GLUCONATE 2 % 1 PACK (2 CLOTHS) TOP SCH (04:00)
[2016-10-31] MEDS: PROPOFOL 1000 MG/100 ML INJ 100 ML IV PRN ×5 (04:00→20:45)
[2016-10-31] MEDS: RESP: ALBUTEROL 2.5 MG/IPRATROPIUM 0.5 MG NEB (SCH) NEB ×6 (04:00→23:35)
[2016-10-31 04:42] LABS: BASOPHIL # 0.1 TH/MM3 (0-0.2); BASOPHIL % 0.5 % (0.0-2.0); EOSINOPHIL # 0.5 TH/MM3 (0-0.4); EOSINOPHIL % 3.8 % (0.0-4.0); HEMATOCRIT 34.9 % (35.0-46.0); HEMO FLAGS DIFF FINAL; LYMPH % 22.8 % (9.0-44.0); LYMPHOCYTE # 2.9 TH/MM3 (1.0-4.8); MEAN CELL VOLUME 89.5 FL (80.0-100.0); MEAN CORPUSCULAR HGB CONC 33.6 % (32.0-36.0); MONO % 9.6 % (0.0-8.0); NEUT % 63.3 % (16.0-70.0); PLATELET COUNT 229 TH/MM3 (150-450); RED CELL DISTRIBUTION WIDTH 14.6 % (11.6-17.2); WHITE BLOOD COUNT 12.7 TH/MM3 (4.0-11.0)
[2016-10-31 04:53] LABS: BICARBONATE 24.4 MEQ/L (21.0-32.0); POTASSIUM 4.1 MEQ/L (3.5-5.1)
[2016-10-31 05:08] LABS: CALCIUM-PROTEIN CORRECTED 7.8 MG/DL (8.5-10.1)
[2016-10-31] MEDS: metroNIDAZOLE 500 MG INJ 100 ML IV SCH ×2 (05:26→14:14)
[2016-10-31] MEDS: INSULIN ASPART SUPPLEMENTAL SCALE SQ SCH ×3 (05:43→17:49)
[2016-10-31] MEDS: LINEZOLID 600 MG PREMIX 300 ML IV SCH (07:31)
[2016-10-31] MEDS: CHLORHEXIDINE 0.12% (ORAL KIT) 15 ML CUP MT SCH ×2 (09:18→20:46)
[2016-10-31] MEDS: SODIUM CHLORIDE 0.9% FLUSH 10 ML FLUSH IV FLUSH SCH (09:18)
[2016-10-31] MEDS: METOPROLOL TARTRATE 25 MG TAB PO SCH ×2 (09:18→20:46)
[2016-10-31] MEDS: FAMOTIDINE 20 MG TAB PO SCH ×2 (09:18→20:46)
[2016-10-31] MEDS: HEPARIN SODIUM - SQ 10,000 UNITS/ML VIAL SQ SCH ×2 (09:18→15:31)
[2016-10-31] MEDS: AZTREONAM INJ 2,000 MG in SODIUM CHLORIDE 0.9% INJ 100 ML IV SCH ×2 (09:19→15:31)
--- NOTE | 2016-10-31 11:12 | HHI.CCPN ---
Subjective Remarks/Hospital Course HPI 70-year-old prison resident with a medical history significant for dementia, diabetes mellitus, hyperlipidemia, reactive airway disease who was found to have [facility] the [facility] was called. Patient was noted to have O2 sats in the 70s. She was very apneic with her head slumped down. Paramedics report of having to hold her head up to have her breathe with the nebulizer treatment in place. Patient was given Solu- Medrol 125 mg IV and 4 nebulizer treatments prior to arrival in the ER for documentation. On arrival in the ER patient was extremely lethargic however was reportedly able to answer some questions. Patient was felt not to be able to protect her airway as well as very hypoxic and hence was intubated by ER physician and placed on mechanical ventilation. Chest x-ray in the ER showed bilateral infiltrates and possible cavitary lesion. She was accepted for admission by critical care medicine service. CT chest was ordered by ER physician. When I evaluated the patient in the ER she was sedated with propofol , orally intubated on mechanical ventilation. History was obtained by reviewing records and discussion with ER physician. 10/29 Patient is sedated with Diprivan and intubated. Afebrile. 10/30 Patient remains sedated and intubated. T:99.7 last night. 10/31: Intubated sedated. CT reviewed and discussed with Dr. Madison. Will consider Bronch. Also check thyroid US and possible biopsy. Check thyroid studies. Also consult palliative care as patient has underlying dementia with NPH and possible malignancy. Objective Vital Signs Date Time Temp Pulse Resp B/P (MAP) Pulse Ox O2 Delivery O2 Flow Rate FiO2 10/31/16 10:00 94 10/31/16 08:55 100 35 10/31/16 08:00 100.0 34 152/96 (114) 10/28/16 18:58 Auto-Vent 10/28/16 16:00 15.00 Intake and Output 10/31/16 10/31/16 11/01/16 08:00 16:00 00:00 Intake Total 999 ml 100 ml Output Total 800 ml Balance 199 ml 100 ml Result Diagram: 10/31/16 0335 10/31/16 0335 Other Results Microbiology Date/Time Source Procedure Growth Status 10/28/16 21:00 Sputum Endotracheal Gram Stain - Final Complete 10/28/16 21:00 Sputum Endotracheal Sputum Culture - Final HEAVY GROWTH NORMAL RESPIRATORY SYLWIA Complete 10/28/16 17:00 Urine Catheterized Urine Streptococcus pneumoniae Antigen (M - Final PRESUMPTIVE NEGATIVE FOR STREPTOCOCCU... Complete 10/28/16 17:00 Urine Clean Catch Urine Culture - Final Escherichia Coli Complete 10/28/16 17:00 Other - Final Complete Imaging Last Impressions Abdomen X-Ray 10/29/16 0000 Signed Impressions: Service Date/Time: Saturday, October 29, 2016 15:32 - CONCLUSION: Negative for radiopaque foreign bodies. Jacoby Torre MD FACR Chest CT 10/28/16 1814 Signed Impressions: Service Date/Time: Friday, October 28, 2016 18:28 - CONCLUSION: 1. Abnormality on chest radiograph corresponds to a 3.4 x 3.5 cm central right hilar mass/adenopathy with associated postobstructive airspace consolidation in the inferior right upper lobe. There are at least 2 additional pulmonary nodules measuring 13 x 8 mm in the anterior right middle lobe and 8 x 8 mm in the anterior right upper lobe near the apex. 2. 3.9 x 4.3 cm heterogeneous nodule in the right thyroid gland. No significant regional cervical adenopathy. 3. Patchy bilateral lower lobe air space consolidation and diffuse ground glass opacities. Differential considerations include ARDS versus infection versus aspiration. 1. Tyler Selby MD Chest X-Ray 10/28/16 1559 Signed Impressions: Service Date/Time: Friday, October 28, 2016 16:58 - CONCLUSION: 1. Bilateral hilar masslike fullness and with questionable cavitation on the right. I don't have any pertinent priors for comparison. A CT of the chest, preferably with intravenous contrast, is recommended. 2. Patchy mid and lower lung predominant air space consolidation bilaterally and with small pleural effusions. 3. Endotracheal tube tip is approximately 2 cm above the radhika. 4. Nasogastric tube tip in the stomach. Keshav Burks MD Head CT 10/28/16 0000 Signed Impressions: Service Date/Time: Friday, October 28, 2016 20:44 - CONCLUSION: 1. No bleed or evidence of acute infarction. 2. Atrophy and chronic white matter changes. 3. Moderate ventriculomegaly, beyond that expected for the degree of atrophy. Normal pressure hydrocephalus would be in the differential. Keshav Burks MD Objective Remarks HEENT/ Neuro: Sedated, orally intubated, no pallor, no icterus, tongue/ mucosa moist Neck: No JVD. Palpable thyroid mass R side Chest/Pulm: on mech vent, good air entry bilaterally, scattered rhonchi, no wheezing CVS: S1-S2 regular, no murmur GI/abdomen: soft, nontender, bowel sounds sluggish Extremities: warm bilaterally, no edema Neuro: Intubated sedated. On sedation hold opens eyes intermittently appears to follow commands on the right upper and lower extremity A/P Assessment and Plan 70-year-old female with: Encephalopathy Acute hypoxemic respiratory failure Severe sepsis Suspect aspiration pneumonia Right hilar mass with Pulmonary nodules ? Metastatic lung CA Thyroid mass Ventriculomegaly possible NPH Reactive airway disease Diabetes mellitus Hyperlipidemia Hypertension History of dementia Plan: Neuro: On Diprivan infusion for sedation. Daily sedation vacation. CT brain: Moderate ventriculomegaly, beyond that expected for the degree of atrophy. MRI confirms. Neurosurgery is following- Dr. Hernandez No acute intervention CV: Lopressor 25mg [id number] HR and BP keep MAP>65mmHg Lactic acid: normal. Troponin negative x 3 sets Pulm: Continue with vent support keep sat >90% Bronchodilators, ICU vent bundle. SBT daily as see. Became tachypneic on CPAP today CT chest reviewed. Pulm is following- Dr. Madison, to consider bronch with BAL if family or guardian available Will discuss with family/guardian prior to proceeding with diagnostic studies Sputum culture negative to date : Monitor renal function, I/O's, electrolytes replacement per protocol. GI/liver: Continue with Glucerna and advance to goal as tolerated. On Pepcid 20mg BID for GI prophylaxis ID: Continue with abx ( Aztreonam, Levaquin, Flagyl, Zyvox) monitor for signs of infections ( Fever, WBC). Follow up on cultures. Strep pneumonia urinary Ag negative. ID is following- Dr. Zarate Urine cx 10/28: E COLI Heme: Monitor CBC. Patient has hilar mass with pulmonary nodules, also thyroid mass. Given underlying dementia and possible NPH I will hold off any further diagnostic studies and to a meeting with family can be arranged. Palliative care consulted Endocrine: SSI for glycemic control(medium scale) Prophylaxis: Pepcid via OG tube, SCDs/subcutaneous heparin CCT 30 mins Trevor Parr MD Oct 31, 2016 11:12
--- NOTE | 2016-10-31 12:48 | RADRPT ---
EXAM DATE/TIME: 10/31/2016 11:47 [facility] COMPARISON: CT THORAX W CONTRAST, October 28, 2016, 18:28. EXTERNAL COMPARISON : [facility], [place] THYROID, January 30, 2012[facility], [place] [id number] THYROID U[place], DECEM 2011 INDICATIONS : Palpable mass. MEDICAL HISTORY : Hypertension. Dementia. Methicillin-resistant Staphylococcus aureus. Thyroid disease. Headaches. Oste oarthritis. Diabetes. Depression. Anxiety. SURGICAL HISTORY : None. ENCOUNTER: Initial ACUITY: 1 day PAIN SCORE: 02/20 LOCATION: Bilateral neck MEASUREMENTS: RIGHT LOBE: 6.8 x 5.2 x 3.1 cm LEFT LOBE: 3.3 x 1.6 x 1.2 cm FINDINGS: RIGHT LOBE: Large complex 6.8 CM mass right lobe extending below the clavicle. LEFT LOBE: Homogeneous echotexture without nodules or cysts. Vascularity is within normal limits. ISTHMUS: Normal in size without focal abnormality. CONCLUSION: Large complex mass right lobe of the thyroid. Minimally increased in size since 01/29 Jacoby Torre MD FACR on October 31, 2016 at 12:43 Board Certified Radiologist. This report was verified electronically.
--- NOTE | 2016-10-31 13:21 | HHI.IDPN ---
Note Infectious Disease Note Patient on the vent. Failed CPAP. Awake and responsive. Looks comfortable. Afebrile. Admitted with respiratory distress. PAST MEDICAL HISTORY 1. Dementia. 2. Diabetes mellitus. 3. Hypertension. 4. Thyroid disease. 5. Anxiety, depression. 6. Arthritis. ALLERGIES AMOXICILLIN, PROPOXYPHENE. MEDICATION 1. Levaquin. 2. Aztreonam. 3. Linezolid. OBJECTIVE: Vital Signs Date Time Temp Pulse Resp B/P (MAP) Pulse Ox O2 Delivery O2 Flow Rate FiO2 10/31/16 13:11 100 35 10/31/16 12:00 100.2 107 20 175/125 (142) 100 10/31/16 12:00 107 10/31/16 12:00 35 10/31/16 10:00 94 10/31/16 08:55 100 35 10/31/16 08:00 104 10/31/16 08:00 100.0 104 34 152/96 (114) 100 10/31/16 08:00 40 10/31/16 06:00 103 10/31/16 04:00 40 10/31/16 04:00 99.2 99 19 143/63 (89) 98 10/31/16 04:00 99 10/31/16 03:58 100 40 10/31/16 02:00 97 10/31/16 00:00 40 10/31/16 00:00 91 10/31/16 00:00 99.3 91 14 145/62 (89) 99 10/30/16 23:48 95 40 10/30/16 23:47 14 10/30/16 22:00 92 10/30/16 20:00 40 10/30/16 20:00 98 10/30/16 20:00 99.8 98 26 162/71 (101) 100 10/30/16 19:55 98 40 10/30/16 18:00 97 10/30/16 16:26 99 40 10/30/16 16:00 94 10/30/16 16:00 40 10/30/16 16:00 98.4 94 22 139/65 (89) 99 10/30/16 14:00 90 Laboratory Tests Test 10/30/16 05:10 10/31/16 03:35 White Blood Count 12.9 TH/MM3 12.7 TH/MM3 Red Blood Count 3.85 MIL/MM3 3.90 MIL/MM3 Hemoglobin 11.4 GM/DL 11.7 GM/DL Hematocrit 34.6 % 34.9 % Mean Corpuscular Volume 89.9 FL 89.5 FL Mean Corpuscular Hemoglobin 29.6 PG 30.0 PG Mean Corpuscular Hemoglobin Concent 33.0 % 33.6 % Red Cell Distribution Width 13.9 % 14.6 % Platelet Count 219 TH/MM3 229 TH/MM3 Mean Platelet Volume 9.1 FL 8.9 FL Neutrophils (%) (Auto) 66.8 % 63.3 % Lymphocytes (%) (Auto) 23.2 % 22.8 % Monocytes (%) (Auto) 9.0 % 9.6 % Eosinophils (%) (Auto) 0.7 % 3.8 % Basophils (%) (Auto) 0.3 % 0.5 % Neutrophils # (Auto) 8.6 TH/MM3 8.0 TH/MM3 Lymphocytes # (Auto) 3.0 TH/MM3 2.9 TH/MM3 Monocytes # (Auto) 1.2 TH/MM3 1.2 TH/MM3 Eosinophils # (Auto) 0.1 TH/MM3 0.5 TH/MM3 Basophils # (Auto) 0.0 TH/MM3 0.1 TH/MM3 CBC Comment DIFF FINAL DIFF FINAL Differential Comment Laboratory Tests Test 10/30/16 05:10 10/31/16 03:35 Blood Urea Nitrogen 19 MG/DL 18 MG/DL Creatinine 0.83 MG/DL 0.76 MG/DL Random Glucose 225 MG/DL 271 MG/DL Calcium Level 7.7 MG/DL 7.3 MG/DL Sodium Level 142 MEQ/L 141 MEQ/L Potassium Level 4.0 MEQ/L 4.1 MEQ/L Chloride Level 110 MEQ/L 109 MEQ/L Carbon Dioxide Level 24.6 MEQ/L 24.4 MEQ/L Anion Gap 7 MEQ/L 8 MEQ/L Estimat Glomerular Filtration Rate 68 ML/MIN 75 ML/MIN Total Protein 6.1 GM/DL Protein Corrected Calcium 7.8 MG/DL Microbiology Date/Time Source Procedure Growth Status 10/28/16 16:15 Blood Peripheral Aerobic Blood Culture - Preliminary NO GROWTH IN 3 DAYS Resulted 10/28/16 16:15 Blood Peripheral Anaerobic Blood Culture - Preliminary NO GROWTH IN 3 DAYS Resulted 10/28/16 16:10 Blood Peripheral Aerobic Blood Culture - Preliminary NO GROWTH IN 3 DAYS Resulted 10/28/16 16:10 Blood Peripheral Anaerobic Blood Culture - Preliminary NO GROWTH IN 3 DAYS Resulted 10/28/16 21:00 Sputum Endotracheal Acid Fast Stain - Final NO ACID FAST BACILLI SEEN Resulted 10/28/16 21:00 Sputum Endotracheal Mycobacterial Culture Pending Resulted 10/28/16 21:00 Sputum Endotracheal Gram Stain - Final Complete 10/28/16 21:00 Sputum Endotracheal Sputum Culture - Final HEAVY GROWTH NORMAL RESPIRATORY SYLWIA Complete 10/28/16 17:00 Urine Catheterized Urine Streptococcus pneumoniae Antigen (M - Final PRESUMPTIVE NEGATIVE FOR STREPTOCOCCU... Complete 10/28/16 17:00 Urine Clean Catch Urine Culture - Final Escherichia Coli Complete 10/28/16 17:00 Other - Final Complete IMAGING: Chest X-Ray 10/31/16 0600 Signed Impressions: Service Date/Time: Monday, October 31, 2016 02:38 - CONCLUSION: Limited study by motion artifact. Lines and tubes. Grossly clear lungs. Eric Levine Jr., MD Thyroid Ultrasound 10/31/16 0000 Signed Impressions: Service Date/Time: Monday, October 31, 2016 11:47 - CONCLUSION: Large complex mass right lobe of the thyroid. Minimally increased in size since Jacoby Torre MD FACR Chest X-Ray 10/30/16 0000 Signed Impressions: Service Date/Time: Sunday, October 30, 2016 08:56 - CONCLUSION: 1. Cardiomegaly and interstitial edema. 2. Right hilar prominence again seen. Edwin Jacome MD Abdomen X-Ray 10/29/16 0000 Signed Impressions: Service Date/Time: Saturday, October 29, 2016 15:32 - CONCLUSION: Negative for radiopaque foreign bodies. Jacoby Torre MD FACR Chest CT 10/28/16 1814 Signed Impressions: Service Date/Time: Friday, October 28, 2016 18:28 - CONCLUSION: 1. Abnormality on chest radiograph corresponds to a 3.4 x 3.5 cm central right hilar mass/adenopathy with associated postobstructive airspace consolidation in the inferior right upper lobe. There are at least 2 additional pulmonary nodules measuring 13 x 8 mm in the anterior right middle lobe and 8 x 8 mm in the anterior right upper lobe near the apex. 2. 3.9 x 4.3 cm heterogeneous nodule in the right thyroid gland. No significant regional cervical adenopathy. 3. Patchy bilateral lower lobe air space consolidation and diffuse ground glass opacities. Differential considerations include ARDS versus infection versus aspiration. 1. Tyler Selby MD Head CT 10/28/16 0000 Signed Impressions: Service Date/Time: Friday, October 28, 2016 20:44 - CONCLUSION: 1. No bleed or evidence of acute infarction. 2. Atrophy and chronic white matter changes. 3. Moderate ventriculomegaly, beyond that expected for the degree of atrophy. Normal pressure hydrocephalus would be in the differential. Keshav Burks MD PHYSICAL EXAMINATION GENERAL: On the ventilator. No acute distress. NECK: Obese, fullness palpated at the right lateral neck. No induration. LUNGS: Basilar rhonchi. HEART: Regular rate and rhythm without audible murmurs or rubs or gallops. ABDOMEN: Obese, soft, diminished bowel sounds. No tenderness appreciated. EXTREMITIES: No clubbing or cyanosis or edema. SKIN: No rash. NEURO: Alert. Moves all extremities. PSYCHE: Unable to assess. IMPRESSION 1. Bilateral pneumonia with hilar cavitary mass. Sputum gram stain showing gram-positive cocci. Sputum culture has no growth. The patient also has other lung nodules and also a thyroid lesion and hence, potentially may have malignancy. 2. Acute respiratory failure. 3. UTI - E.coli. (S) to Aztreonam. RECOMMENDATIONS 1. Stop linezolid. 2. Stop Levaquin. 3. Continue aztreonam. 4. Monitor clinical status. Francisco Zarate MD Oct 31, 2016 13:21
[2016-10-31] MEDS ORDERED: INSULIN DETEMIR 100 UNITS/ML VIAL SQ ONE (13:30)
[2016-10-31 15:45] LABS: THYROXINE (T4) 6.7 MCG/DL (4.8-13.9)
--- NOTE | 2016-10-31 18:02 | PD.CONS ---
Consult Service Palliative Care Consult Requested By Dr. Parr. Primary Care Physician Phillip Ibrahim M.D. Reason for Consultation a. To assist with evaluation and management of symptoms including: Respiratory distress, Debility. b. To assist medical decision maker(s) with: better understanding of current medical conditions; weighing benefits/burdens of medical treatment options; making medical treatment decisions. HPI History of Present Illness Ms Dalton is a 70 years old female with a medical history significant for dementia, diabetes mellitus, thyroid disease, anxiety, depression, hyperlipemia , and reactive airway disease. Patient presented to the ED 10/28/16 via EMS after complaining of shortness of breath. Upon arrival to ED, patient was found hypoxic with O2 saturation in the 70s and lethargic, unable to protect airway. She was subsequently intubated and placed on mechanical ventilation. Chest X ray revealed bilateral hilar masslike fullness with questionable cavitation on the right,patchy mid and lower lung predominant airspace consolidation bilaterally and with small pleural effusions. Chest CT revealed 3.43.5 cm central right hilar mass/adenopathy with associated postobstructive airspace consolidation in the inferior right upper lobe and at least 2 additional pulmonary nodules measuring 138 mm in the anterior right middle lobe and 88 mm in the anterior right upper lobe near the apex. 3.9x4.3 cm heterogeneous node and right thyroid gland. Head CT revealed atrophy and chronic white matter changes and moderate ventriculomegaly. Patient was admitted to ICU for further medical management. Laboratory work up revealed WBC 15.6, hemoglobin 13.2 platelet count 230. ABGs revealed pH 7.36, pO2 44,pCO2 4, HCO3 26, O2 saturation of 78%. UA negative for ketones, moderate leukocytes. ID Dr. Zarate, 10/29/16 consulted for pneumonia, cavitary lesion in lung and recommended continuation of antibiotic therapy. Sputum test for M. tuberculosis DNA(PCR) was negative. Urine culture 10/28/16 positive for Escherichia coli. Neurosurgery Dr. Khanna. Martinez consulted for possible normal pressure hydrocephalus. Brain MRI revealed ventriculomegaly/ hydrocephalus and extensive nonspecific white matter changes. Pulmonology Dr. Madison consulted for respiratory arrest, recommending medical management. Thyroid ultrasound revealing large complex mass right lobe, minimally increased in size since 2011, intensivists consider a biopsy. Laboratory workup today revealed a WBC 12.7, Hgb is stable at 11.7, platelet count 229. Patient seen in ICU, remains intubated on mechanical ventilation in no acute distress. Sedated, not following commands. Copious clear oral secretions noted. Patient febrile, max temp 100.2. Tachycardic with heart rate in the low 110s. Hypertensive when SBP in the 150s to 170s. FiO2 35%, oxygen saturation high 90s. Telephone conversation with patient's guardian/insurance account representative from [place] [facility], [place]. Medical update provided. Reviewed events leading to this hospitalization, clinical course and current medical management. Discussed newly diagnosed hydrocephalus, pulmonary lesions and acute events to include respiratory distress and sepsis. Shared concerns of patient's overall poor prognosis given multiple chronic ongoing comorbidities, and acute event. Discussed risks, benefits and limitations of CPR given patient 's clinical condition and known wishes (patient presented with community DNR signed in 2010). [place] reports that she fully supports that is, however, is unable to make that medical decision without court involvement. Patient's CODE STATUS at this time remains full code until court involvement. Palliative care to follow-up with written supportive documentation addressed to guardian and stock speculator. As per guardian, goals of therapy at this time is to continue current aggressive management, allow time for medical improvement. Case discussed with bedside RN Lauren. . Function/Cognitive Trajectory Prior to hospitalization, patient residing in a long-term care [facility]. Patient has a history of dementia. Requiring assistance with all ADLs beside feeding. Patient was deemed totally incapacitated by the court on July 2015. . Review of Systems ROS Limitations: Clinical Condition, Intubated Constitutional: COMPLAINS OF: Generalized weakness Eyes: DENIES: Eye inflammation Ears, nose, mouth, throat: DENIES: Nasal discharge, Running Nose, Epistaxis Respiratory: COMPLAINS OF: Sputum production, Shortness of breath, DENIES: Cough Cardiovascular: DENIES: Lower Extremity Edema Integumentary: DENIES: Rash Hematologic/Lymphatics: COMPLAINS OF: Bruising Immunologic/Allergic: DENIES: Eczema Other ROS: Limited ROS secondary to patient's clinical condition, intubated, sedated. ROS obtained from medical records and clinical observation. . Past Family Social History Coded Allergies: propoxyphene (Unverified Allergy, Severe, 09/25/16) amoxicillin (Verified Allergy, Unknown, 10/28/16) Past Medical History Dementia Diabetes mellitus Hypertension Thyroid disease Arthritis Anxiety Depression Hyperlipidemia Reactive airway disease . Past Surgical History No surgical history. . Reported Medications Fleet Oil Enema (Mineral Oil) 118 Ml Enem 1 Ea RECTAL DIRECTED PRN Milk of Magnesia Liq (Magnesium Hydroxide) 400 Mg/5 Ml Susp 15 Ml PO DAILY PRN Biscolax Supp (Bisacodyl) 10 Mg Supp 10 Mg RECTAL DAILY PRN Carvedilol 25 Mg Tab 25 Mg PO BID Humalog Inj (Insulin Human Lispro) 1,000 Unit/10 Ml Vial 1-9 Units SQ ACHS Monistat 1 Day or Night C 1200-2 mg-% (Miconazole Nitrate Vaginal) 1,200 Mg-2 % Kit 1 Ea VAGINAL ONCE Lantus Solostar Pen Inj (Insulin Glargine) 300 Unit/3 Ml Pen 1 Units SQ Lantus Inj (Insulin Glargine) 1,000 Unit/10 Ml Vial 1 Units SQ HS Norvasc (Amlodipine Besylate) 10 Mg Tab 10 Mg PO DAILY Atorvastatin (Atorvastatin Calcium) 40 Mg Tab 40 Mg PO HS Klonopin (Clonazepam) 0.5 Mg Tab 0.5 Mg PO BID Seroquel (Quetiapine Fumarate) 25 Mg Tab 25 Mg PO DAILY Galva (Hydrocodone-Acetaminophen) 7.5-325 mg Tab 1 Tab PO Q4H PRN Zithromax Z-Ronnie (Azithromycin) 250 Mg Dspk 250 Mg PO DIRECTED Albuterol Neb (Albuterol Sulfate) 2.5 Mg/3 Ml Neb 2.5 Mg NEB Q4HR NEB PRN . Current Medications Medications (Trade) Dose Ordered Sig/Nathan Route Start Time Stop Time Status Last Admin (NS Flush) 2 ml UNSCH PRN IV FLUSH 10/28/16 18:30 10/30/16 09:51 (NS Flush) 2 ml BID IV FLUSH 10/28/16 21:00 10/31/16 09:18 (Tylenol) 650 mg Q6H PRN PO 10/28/16 18:30 (Duoneb Neb) 1 ampule Q4HR NEB NEB 10/28/16 20:00 10/31/16 13:15 (Duoneb Neb) 1 ampule Q2HR NEB PRN INH 10/28/16 18:30 (Peridex 0.12% Liq) 15 ml BID@08,20 MT 10/28/16 20:00 10/31/16 09:18 (Pepcid) 20 mg BID PO 10/28/16 21:00 10/31/16 09:18 Miscellaneous Information 1 Q361D XX 10/28/16 18:30 10/28/16 21:00 (Chlorhexidine 2% Cloth) 3 pack Taper DAILY@04 TOP 10/29/16 04:00 10/25/17 03:59 (Chlorhexidine 2% Cloth) 3 pack UNSCH PRN TOP 10/28/16 18:30 Propofol 100 ml @ 2.4 mls/hr TITRATE PRN IV 10/28/16 18:30 10/31/16 11:02 (NovoLOG SUPPLEMENTAL SCALE) 1 Q6HR SQ 10/28/16 18:30 10/31/16 12:00 Aztreonam 2000 mg/ Sodium Chloride 100 ml @ 200 mls/hr Q8H IV 10/29/16 00:00 10/31/16 09:19 (Heparin Inj) 5,000 units Q8H SQ 10/29/16 08:00 10/31/16 09:18 Metronidazole 100 ml @ 100 mls/hr Q8HR IV 10/28/16 22:00 10/31/16 14:14 (fentaNYL INJ) 50 mcg Q4H PRN IV 10/29/16 02:30 10/30/16 22:47 Potassium Chloride 100 ml @ 50 mls/hr Q2H PRN IV 10/29/16 08:00 Potassium Chloride 100 ml @ 50 mls/hr Q2H PRN IV 10/29/16 08:00 (K-Lyte Cl Eff) 50 meq UNSCH PRN PO 10/29/16 08:00 Potassium Chloride 100 ml @ 25 mls/hr UNSCH PRN IV 10/29/16 08:00 Potassium Chloride 100 ml @ 50 mls/hr Q2H PRN IV 10/29/16 08:00 Magnesium Sulfate 4 gm/Sodium Chloride 100 ml @ 50 mls/hr UNSCH PRN IV 10/29/16 08:00 (Mag-Ox) 800 mg UNSCH PRN PO 10/29/16 08:00 Magnesium Sulfate 2 gm/Sodium Chloride 100 ml @ 50 mls/hr UNSCH PRN IV 10/29/16 08:00 (K-Phos) 2,000 mg Q4H PRN PO 10/29/16 08:00 Sodium Phosphate 30 mmol/Sodium Chloride 250 ml @ 42 mls/hr UNSCH PRN IV 10/29/16 08:00 10/29/16 10:21 (K-Phos) 2,000 mg UNSCH PRN PO/TUBE 10/29/16 08:00 Potassium Phosphate 30 mmol/ Sodium Chloride 260 ml @ 42 mls/hr UNSCH PRN IV 10/29/16 08:00 (Lopressor) 25 mg Q12HR PO 10/30/16 15:00 10/31/16 09:18 (Apresoline Inj) 10 mg Q6H PRN IV PUSH 10/30/16 15:00 10/30/16 15:03 (Levemir Inj) 10 units BID@0800,2000 SQ 10/31/16 20:00 Family History Unable to obtain secondary to patient's clinical condition. Intubated, sedated. . Substance Use Unable to obtain secondary to patient's clinical condition. Information obtained from prior hospitalization/ER visits. Tobacco: None reported. Alcohol: None reported. Prescription med abuse: None reported Illicits: None reported . Psychosocial History Patient is a resident at a retirement care facility. As per prior medical records from 2007, patient has two sons who reside in the area. 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 . Spiritual/Cultural Factors Unable to obtain given patient`s clinical condition- intubated and sedated. . Health Care Surrogate(s): Patient has a court appointed guardian, [place] [facility] [place] [place]. . Family/friends goals: Full code. Continue current aggressive management, allow time for medical improvement. . Ethical and Legal Issues Patient has a court appointed guardian and a DNR signed by her son prior to appointment of guardian. . Physical Exam Vital Signs Date Time Temp Pulse Resp B/P (MAP) Pulse Ox O2 Delivery O2 Flow Rate FiO2 10/31/16 14:00 119 10/31/16 13:11 100 35 10/31/16 12:00 100.2 107 20 175/125 (142) 100 10/31/16 12:00 107 10/31/16 12:00 35 10/31/16 10:00 94 10/31/16 08:55 100 35 10/31/16 08:00 104 10/31/16 08:00 100.0 104 34 152/96 (114) 100 10/31/16 08:00 40 10/31/16 06:00 103 10/31/16 04:00 40 10/31/16 04:00 99.2 99 19 143/63 (89) 98 10/31/16 04:00 99 10/31/16 03:58 100 40 10/31/16 02:00 97 10/31/16 00:00 40 10/31/16 00:00 91 10/31/16 00:00 99.3 91 14 145/62 (89) 99 10/30/16 23:48 95 40 10/30/16 23:47 14 10/30/16 22:00 92 10/30/16 20:00 40 10/30/16 20:00 98 10/30/16 20:00 99.8 98 26 162/71 (101) 100 10/30/16 19:55 98 40 10/30/16 18:00 97 10/30/16 16:26 99 40 10/30/16 16:00 94 10/30/16 16:00 40 10/30/16 16:00 98.4 94 22 139/65 (89) 99 10/31/16 11/01/16 19:00 07:00 Intake Total 500 ml Balance 500 ml Intake IV Total 500 ml Exam CONSTITUTIONAL/GENERAL: This is an elderly, well-nourished patient, in no acute distress. TUBES/LINES/DRAINS:PIV, ETT, OGT, Jang catheter, SCDs SKIN: No jaundice, rashes, or lesions. Ecchymoses on upper extremities. No wounds seen anteriorly. Skin temperature appropriate. Not diaphoretic. HEAD: Atraumatic. Normocephalic. EYES: Pupils equal and round and reactive. No scleral icterus. No injection or drainage. Fundi not examined. ENT: Nose without bleeding or purulent drainage. Moist oral mucosa. Copious clear oral secretions. NECK: Trachea midline. Supple, nontender. CARDIOVASCULAR: Regular rate and rhythm without murmurs, gallops, or rubs. No JVD. Peripheral pulses symmetric. RESPIRATORY/CHEST: Symmetric, unlabored respirations. Rhonchi to auscultation. Breath sounds equal bilaterally. GASTROINTESTINAL: Abdomen soft, round, large. No guarding. Unable to appreciate hepatomegaly as secondary to body habitus. Bowel sounds present. GENITOURINARY: Without palpable bladder distension. Jang catheter in place. MUSCULOSKELETAL: Extremities without clubbing, cyanosis, or edema. No mottling or clubbing. NEUROLOGICAL: Intubated and sedated. Not following commands. PSYCHIATRIC:Unable to assess, patient intubated and sedated. Appears calm. . Diagnostic Tests Laboratory Laboratory Tests Test 10/28/16 15:50 10/28/16 16:15 10/28/16 17:00 10/28/16 17:40 Blood Gas Puncture Site RT RADIAL RT BRACHIAL Blood Gas Patient Temperature 98.6 98.6 Blood Gas HCO3 26 mmol/L (22-26) 24 mmol/L (22-26) Blood Gas Base Excess 1.2 mmol/L (-2-2) -1.0 mmol/L (-2-2) Blood Gas Oxygen Saturation 78 % (90-100) 93 % (90-100) Arterial Blood pH 7.36 (7.380-7.420) 7.34 (7.380-7.420) Arterial Blood Partial Pressure CO2 47 mmHg (38-42) 45 mmHg (38-42) Arterial Blood Partial Pressure O2 44 mmHG (61-120) 77 mmHG (61-120) Arterial Blood Oxygen Content 14.3 Vol % (12.0-20.0) 15.8 Vol % (12.0-20.0) Arterial Blood Carboxyhemoglobin 1.6 % (0-4) 1.4 % (0-4) Arterial Blood Methemoglobin 0.7 % (0-2) 0.5 % (0-2) Blood Gas Hemoglobin 13.0 G/DL (12.0-16.0) 12.0 G/DL (12.0-16.0) Blood Gas Inspired Oxygen 21 % 100 % White Blood Count 15.6 TH/MM3 (4.0-11.0) Red Blood Count 4.49 MIL/MM3 (4.00-5.30) Hemoglobin 13.2 GM/DL (11.6-15.3) Hematocrit 40.6 % (35.0-46.0) Mean Corpuscular Volume 90.4 FL (80.0-100.0) Mean Corpuscular Hemoglobin 29.5 PG (27.0-34.0) Mean Corpuscular Hemoglobin Concent 32.6 % (32.0-36.0) Red Cell Distribution Width 14.2 % (11.6-17.2) Platelet Count 230 TH/MM3 (150-450) Mean Platelet Volume 8.7 FL (7.0-11.0) Neutrophils (%) (Auto) 64.9 % (16.0-70.0) Lymphocytes (%) (Auto) 23.8 % (9.0-44.0) Monocytes (%) (Auto) 7.2 % (0.0-8.0) Eosinophils (%) (Auto) 3.6 % (0.0-4.0) Basophils (%) (Auto) 0.5 % (0.0-2.0) Neutrophils # (Auto) 10.1 TH/MM3 (1.8-7.7) Lymphocytes # (Auto) 3.7 TH/MM3 (1.0-4.8) Monocytes # (Auto) 1.1 TH/MM3 (0-0.9) Eosinophils # (Auto) 0.6 TH/MM3 (0-0.4) Basophils # (Auto) 0.1 TH/MM3 (0-0.2) CBC Comment DIFF FINAL Differential Comment Activated Partial Thromboplast Time 29.2 SEC (24.3-30.1) Blood Urea Nitrogen 24 MG/DL (7-18) Creatinine 1.00 MG/DL (0.50-1.00) Random Glucose 125 MG/DL (74-106) Total Protein 7.3 GM/DL (6.4-8.2) Albumin 3.3 GM/DL (3.4-5.0) Calcium Level 8.9 MG/DL (8.5-10.1) Alkaline Phosphatase 58 U/L (45-117) Aspartate Amino Transf (AST/SGOT) 8 U/L (15-37) Alanine Aminotransferase (ALT/SGPT) 8 U/L (10-53) Total Bilirubin 0.3 MG/DL (0.2-1.0) Sodium Level 140 MEQ/L (136-145) Potassium Level 4.5 MEQ/L (3.5-5.1) Chloride Level 104 MEQ/L (98-107) Carbon Dioxide Level 28.3 MEQ/L (21.0-32.0) Anion Gap 8 MEQ/L (5-15) Estimat Glomerular Filtration Rate 55 ML/MIN (>89) Total Creatine Kinase 46 U/L (26-192) Troponin I LESS THAN 0.02 NG/ML B-Type Natriuretic Peptide 12 PG/ML (0-100) Urine Color YELLOW (YELLW/STRAW) Urine Turbidity HAZY (CLEAR) Urine pH 5.5 (5.0-8.5) Urine Specific [place] 1.018 (1.002-1.035) Urine Protein 300 mg/dL (NEG-TRACE) Urine Glucose (UA) TRACE mg/dL (NEG) Urine Ketones NEG mg/dL (NEG) Urine Occult Blood SMALL (NEG) Urine Nitrite NEG (NEG) Urine Bilirubin NEG (NEG) Urine Urobilinogen LESS THAN 2.0 MG/DL (LESS Urine Leukocyte Esterase MOD (NEG) Urine RBC 1 /hpf (0-3) Urine WBC 8 /hpf (0-5) Urine Bacteria MOD /hpf (NONE) Microscopic Urinalysis Comment CULTURE INDICATED Oxygen Delivery Device VENTILATOR Blood Gas Ventilator Setting Test 10/28/16 20:00 10/28/16 21:00 10/28/16 23:12 10/29/16 03:28 Lactic Acid Level 1.9 mmol/L (0.4-2.0) Nasal Screen MRSA (PCR) MRSA DETECTED (NOT DETECT) Total Creatine Kinase 117 U/L (26-192) 87 U/L (26-192) Troponin I LESS THAN 0.02 NG/ML LESS THAN 0.02 NG/ML White Blood Count 10.4 TH/MM3 (4.0-11.0) Red Blood Count 4.07 MIL/MM3 (4.00-5.30) Hemoglobin 12.1 GM/DL (11.6-15.3) Hematocrit 36.5 % (35.0-46.0) Mean Corpuscular Volume 89.7 FL (80.0-100.0) Mean Corpuscular Hemoglobin 29.7 PG (27.0-34.0) Mean Corpuscular Hemoglobin Concent 33.1 % (32.0-36.0) Red Cell Distribution Width 14.1 % (11.6-17.2) Platelet Count 191 TH/MM3 (150-450) Mean Platelet Volume 8.6 FL (7.0-11.0) Neutrophils (%) (Auto) 86.8 % (16.0-70.0) Lymphocytes (%) (Auto) 12.2 % (9.0-44.0) Monocytes (%) (Auto) 0.9 % (0.0-8.0) Eosinophils (%) (Auto) 0.0 % (0.0-4.0) Basophils (%) (Auto) 0.1 % (0.0-2.0) Neutrophils # (Auto) 9.1 TH/MM3 (1.8-7.7) Lymphocytes # (Auto) 1.3 TH/MM3 (1.0-4.8) Monocytes # (Auto) 0.1 TH/MM3 (0-0.9) Eosinophils # (Auto) 0.0 TH/MM3 (0-0.4) Basophils # (Auto) 0.0 TH/MM3 (0-0.2) CBC Comment DIFF FINAL Differential Comment Blood Urea Nitrogen 23 MG/DL (7-18) Creatinine 0.81 MG/DL (0.50-1.00) Random Glucose 209 MG/DL (74-106) Total Protein 6.3 GM/DL (6.4-8.2) Albumin 2.7 GM/DL (3.4-5.0) Calcium Level 8.0 MG/DL (8.5-10.1) Phosphorus Level 2.1 MG/DL (2.5-4.9) Alkaline Phosphatase 50 U/L (45-117) Aspartate Amino Transf (AST/SGOT) 7 U/L (15-37) Alanine Aminotransferase (ALT/SGPT) 6 U/L (10-53) Total Bilirubin 0.3 MG/DL (0.2-1.0) Sodium Level 139 MEQ/L (136-145) Potassium Level 4.2 MEQ/L (3.5-5.1) Chloride Level 106 MEQ/L (98-107) Carbon Dioxide Level 22.3 MEQ/L (21.0-32.0) Anion Gap 11 MEQ/L (5-15) Estimat Glomerular Filtration Rate 70 ML/MIN (>89) Test 10/29/16 17:05 10/30/16 05:10 10/31/16 03:35 10/31/16 14:05 M. tuberculosis Complex DNA (PCR) NOT DETECTED (NOT DETECT) White Blood Count 12.9 TH/MM3 (4.0-11.0) 12.7 TH/MM3 (4.0-11.0) Red Blood Count 3.85 MIL/MM3 (4.00-5.30) 3.90 MIL/MM3 (4.00-5.30) Hemoglobin 11.4 GM/DL (11.6-15.3) 11.7 GM/DL (11.6-15.3) Hematocrit 34.6 % (35.0-46.0) 34.9 % (35.0-46.0) Mean Corpuscular Volume 89.9 FL (80.0-100.0) 89.5 FL (80.0-100.0) Mean Corpuscular Hemoglobin 29.6 PG (27.0-34.0) 30.0 PG (27.0-34.0) Mean Corpuscular Hemoglobin Concent 33.0 % (32.0-36.0) 33.6 % (32.0-36.0) Red Cell Distribution Width 13.9 % (11.6-17.2) 14.6 % (11.6-17.2) Platelet Count 219 TH/MM3 (150-450) 229 TH/MM3 (150-450) Mean Platelet Volume 9.1 FL (7.0-11.0) 8.9 FL (7.0-11.0) Neutrophils (%) (Auto) 66.8 % (16.0-70.0) 63.3 % (16.0-70.0) Lymphocytes (%) (Auto) 23.2 % (9.0-44.0) 22.8 % (9.0-44.0) Monocytes (%) (Auto) 9.0 % (0.0-8.0) 9.6 % (0.0-8.0) Eosinophils (%) (Auto) 0.7 % (0.0-4.0) 3.8 % (0.0-4.0) Basophils (%) (Auto) 0.3 % (0.0-2.0) 0.5 % (0.0-2.0) Neutrophils # (Auto) 8.6 TH/MM3 (1.8-7.7) 8.0 TH/MM3 (1.8-7.7) Lymphocytes # (Auto) 3.0 TH/MM3 (1.0-4.8) 2.9 TH/MM3 (1.0-4.8) Monocytes # (Auto) 1.2 TH/MM3 (0-0.9) 1.2 TH/MM3 (0-0.9) Eosinophils # (Auto) 0.1 TH/MM3 (0-0.4) 0.5 TH/MM3 (0-0.4) Basophils # (Auto) 0.0 TH/MM3 (0-0.2) 0.1 TH/MM3 (0-0.2) CBC Comment DIFF FINAL DIFF FINAL Differential Comment Blood Urea Nitrogen 19 MG/DL (7-18) 18 MG/DL (7-18) Creatinine 0.83 MG/DL (0.50-1.00) 0.76 MG/DL (0.50-1.00) Random Glucose 225 MG/DL (74-106) 271 MG/DL (74-106) Calcium Level 7.7 MG/DL (8.5-10.1) 7.3 MG/DL (8.5-10.1) Sodium Level 142 MEQ/L (136-145) 141 MEQ/L (136-145) Potassium Level 4.0 MEQ/L (3.5-5.1) 4.1 MEQ/L (3.5-5.1) Chloride Level 110 MEQ/L (98-107) 109 MEQ/L (98-107) Carbon Dioxide Level 24.6 MEQ/L (21.0-32.0) 24.4 MEQ/L (21.0-32.0) Anion Gap 7 MEQ/L (5-15) 8 MEQ/L (5-15) Estimat Glomerular Filtration Rate 68 ML/MIN (>89) 75 ML/MIN (>89) Total Protein 6.1 GM/DL (6.4-8.2) Protein Corrected Calcium 7.8 MG/DL (8.5-10.1) Result Diagram: 10/31/16 0335 10/31/16 0335 Microbiology Microbiology Date/Time Source Procedure Growth Status 10/28/16 16:15 Blood Peripheral Aerobic Blood Culture - Preliminary NO GROWTH IN 3 DAYS Resulted 10/28/16 16:15 Blood Peripheral Anaerobic Blood Culture - Preliminary NO GROWTH IN 3 DAYS Resulted 10/28/16 16:10 Blood Peripheral Aerobic Blood Culture - Preliminary NO GROWTH IN 3 DAYS Resulted 10/28/16 16:10 Blood Peripheral Anaerobic Blood Culture - Preliminary NO GROWTH IN 3 DAYS Resulted 10/28/16 21:00 Sputum Endotracheal Acid Fast Stain - Final NO ACID FAST BACILLI SEEN Resulted 10/28/16 21:00 Sputum Endotracheal Mycobacterial Culture Pending Resulted 10/28/16 21:00 Sputum Endotracheal Gram Stain - Final Complete 10/28/16 21:00 Sputum Endotracheal Sputum Culture - Final HEAVY GROWTH NORMAL RESPIRATORY SYLWIA Complete 10/28/16 17:00 Urine Catheterized Urine Streptococcus pneumoniae Antigen (M - Final PRESUMPTIVE NEGATIVE FOR STREPTOCOCCU... Complete 10/28/16 17:00 Urine Clean Catch Urine Culture - Final Escherichia Coli Complete 10/28/16 17:00 Other - Final Complete Imaging Last Impressions Chest X-Ray 10/31/16 0600 Signed Impressions: Service Date/Time: Monday, October 31, 2016 02:38 - CONCLUSION: Limited study by motion artifact. Lines and tubes. Grossly clear lungs. Eric Levine Jr., MD Thyroid Ultrasound 10/31/16 0000 Signed Impressions: Service Date/Time: Monday, October 31, 2016 11:47 - CONCLUSION: Large complex mass right lobe of the thyroid. Minimally increased in size since Jacoby Torre MD FACR Brain MRI 10/30/16 0000 Signed Impressions: Service Date/Time: Sunday, October 30, 2016 11:38 - CONCLUSION: 1. Ventriculomegaly/hydrocephalus, differential includes normal pressure hydrocephalus and aqueductal stenosis. 2. Extensive nonspecific white matter changes. Edwin Jacome MD Abdomen X-Ray 10/29/16 0000 Signed Impressions: Service Date/Time: Saturday, October 29, 2016 15:32 - CONCLUSION: Negative for radiopaque foreign bodies. Jacoby Torre MD FACR Chest CT 10/28/16 1814 Signed Impressions: Service Date/Time: Friday, October 28, 2016 18:28 - CONCLUSION: 1. Abnormality on chest radiograph corresponds to a 3.4 x 3.5 cm central right hilar mass/adenopathy with associated postobstructive airspace consolidation in the inferior right upper lobe. There are at least 2 additional pulmonary nodules measuring 13 x 8 mm in the anterior right middle lobe and 8 x 8 mm in the anterior right upper lobe near the apex. 2. 3.9 x 4.3 cm heterogeneous nodule in the right thyroid gland. No significant regional cervical adenopathy. 3. Patchy bilateral lower lobe air space consolidation and diffuse ground glass opacities. Differential considerations include ARDS versus infection versus aspiration. 1. Tyler Selby MD Head CT 10/28/16 0000 Signed Impressions: Service Date/Time: Friday, October 28, 2016 20:44 - CONCLUSION: 1. No bleed or evidence of acute infarction. 2. Atrophy and chronic white matter changes. 3. Moderate ventriculomegaly, beyond that expected for the degree of atrophy. Normal pressure hydrocephalus would be in the differential. Keshav Burks MD Procedures 10/28/16 Intubated and mechanically ventilated . Patient/Family Conference Present at Family Conference: Telephone conversation with court appointed guardian [place] from [place] [facility]. . Family Conference Time (mins): 36 Family Conference Location: Telephone Issues Discussed: * Palliative care role, purpose, approach * Additional medical, psychosocial, and spiritual history * Patients general health, functional status, and cognitive changes in the months leading up to the current hospitalization * Guardian's understanding of the current medical problems -dementia at baseline , newly discovered hydrocephalus and pulmonary lesions, sepsis, acute respiratory failure. * Guardian's understanding of prognosis -guarded prognosis * Patients goals of care as best understood from advance directives and/or conversations and/or values * Current medical treatment options and benefits/burdens of those options * Questions answered to the best of my ability * Palliative care contact information provided * Risks, benefits and limitations of CPR given patient's clinical condition excellent . Assessment and Plan Disease Oriented Problem List: (1) Acute respiratory failure requiring reintubation (2) Sepsis (3) Pulmonary nodules (4) Normal pressure hydrocephalus (5) Diabetes mellitus (6) Thyroid mass Symptom Scale: (1) Shortness of breath 0-10 Scale: Unable to quantify Comment: Intubated and mechanically ventilated. . (2) Debility 0-10 Scale: Unable to quantify Comment: Resident of a long-term facility, requiring assistance with ADLs. Progressive debility. Pertinent Non-Medical Issues Psychosocial: Patient is a resident at a retirement care facility. As per prior medical records from 2007, patient has two sons who reside in the area. 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 Spiritual: Unable to obtain, patient is intubated on mechanical ventilation and sedated. Legal: Patient has a court appointed guardian. Ethical issues impacting care: Patient has a court appointed guardian.Patient has a signed DNR in 2010 by her son prior to court appointed guardian. . Important Contacts [place] Lyons/[facility]- Court appointed guardian . Prognosis Ms Dalton is a 70 years old female with a medical history of diabetes mellitus, dementia, thyroid disease, anxiety, depression and hyperlipemia, and reactive airway disease. Patient presented to the ED 10/28/16 via EMS after complaining of shortness of breath. Patient was intubated and placed on mechanical ventilation secondary to acute hypoxemic respiratory failure. Clinical course complicated by newly diagnosed normal pressure hydrocephalus/moderate ventriculomegaly, pulmonary nodules concerning for malignancy, severe sepsis, suspected aspiration pneumonia and thyroid mass. Patient's prognosis is guarded. Patient at high risk for further complications, clinical decline and given the above. . Code Status: Full Code Plan * CODE STATUS: Full Code. Signed community DNR from 2011 secured. Guardian Florida Lyons from [facility] requesting FULL code at this time while DNR petition is presented to the stock speculator. * HEALTH CARE SURROGATE: Patient was determined incapacitated by court order on August 10, 2015. Court appointed guardian effective 08/10/15 -[facility]. * GOALS OF CARE: [place] Lyons from [facility]/ guardian requesting to continue aggressive management at this time, allow time for medical improvement. Guardian reports that she is unable to make medical decisions at this time without court approval. Palliative care to provide written documentation of patient's current clinical condition in order for guardian to petition DNR status. * SYMPTOMS: ==Shortness of breath- Patient intubated on mechanical ventilation. Newly diagnosed lung lesions, concerning of malignancy. Pulmonology following. ==Debility, progressive. Patient residing in long-term facility, requiring assistance with most ADLs. Likely to continue to worsen given acute illness. * Case discussed with bedside RN Lauren. * Palliative care contact information has been provided to patient's guardian. * Palliative care will continue to follow-up for further clarification of goals of care patient's clinical course continue to level. . Time Spent Total Floor Time (mins): 72 (Total time to include reviewing some session of available medical records to include prior hospitalizations or ED visits, physical exam, multiple telephone conversations with patient's guardian, case discussion with bedside RN.) >50% Counseling/Coord of Care: Yes Thank you for the opportunity to participate in the care of Ms. Dalton. Attestation To help prompt me to consider important information that might be impacting today's encounter and assessment, information from prior notes written by myself or my colleagues may have been "brought forward" into today's note. My signature on this note, however, is an attestation that I personally performed the exam, history, and/or decision-making noted today, and, unless otherwise indicated, the interactions with patient, family, and staff as well as the review of records all occurred today. I also attest that the listed assessment and stated plan reflect my best clinical judgment today based on the combination of historical information, prior notes, and today's exam/ interactions. When time spent is documented, it refers only to time spent today by the signer, or if indicated, combined time spent today by collaborating physician/nurse practitioner. Kay Acosta Oct 31, 2016 16:30
[2016-10-31] MEDS: hydrALAZINE HCL 20 MG/ML VIAL IV PUSH PRN (18:46)
--- NOTE | 2016-10-31 18:48 | HHI.PR ---
Subjective Remarks 70 YOWF with VDRF,Pneumonia, ? Aspiration Sedated with Fentanyl On PRVC,AC 14, Fi02 40% No Fever Tolerated CPAP 1 hr Objective Vital Signs Vital Signs Date Time Temp Pulse Resp B/P (MAP) Pulse Ox O2 Delivery O2 Flow Rate FiO2 10/31/16 18:00 104 10/31/16 16:00 99.8 104 17 158/67 (97) 100 10/31/16 16:00 35 10/31/16 16:00 104 10/31/16 15:58 100 35 10/31/16 14:00 119 10/31/16 13:11 100 35 10/31/16 12:00 100.2 107 20 175/125 (142) 100 10/31/16 12:00 107 10/31/16 12:00 35 10/31/16 10:00 94 10/31/16 08:55 100 35 10/31/16 08:00 104 10/31/16 08:00 100.0 104 34 152/96 (114) 100 10/31/16 08:00 40 10/31/16 06:00 103 10/31/16 04:00 40 10/31/16 04:00 99.2 99 19 143/63 (89) 98 10/31/16 04:00 99 10/31/16 03:58 100 40 10/31/16 02:00 97 10/31/16 00:00 40 10/31/16 00:00 91 10/31/16 00:00 99.3 91 14 145/62 (89) 99 10/30/16 23:48 95 40 10/30/16 23:47 14 10/30/16 22:00 92 10/30/16 20:00 40 10/30/16 20:00 98 10/30/16 20:00 99.8 98 26 162/71 (101) 100 10/30/16 19:55 98 40 I/O 10/30/16 10/30/16 10/30/16 10/31/16 10/31/16 10/31/16 07:00 15:00 23:00 07:00 15:00 23:00 Intake Total 1633 ml 400 ml 543 ml 899 ml 500 ml 957 ml Output Total 1500 ml 1325 ml 800 ml 1650 ml Balance 133 ml 400 ml -782 ml 99 ml 500 ml -693 ml Intake IV Total 1300 ml 400 ml 200 ml 200 ml 500 ml 200 ml Tube Feeding 333 ml 343 ml 699 ml 637 ml Other 120 ml Output Urine Total 1500 ml 1325 ml 800 ml 1650 ml # Bowel Movements 0 1 2 Result Diagram: 10/31/1633410/31/16334 Objective Remarks GENERAL: MBMN WF, intubated, sedated SKIN: Warm and dry. HEAD: Normocephalic. EYES: No scleral icterus. No injection or drainage. NECK: Supple, trachea midline. No JVD or lymphadenopathy. CARDIOVASCULAR: Regular rate and rhythm without murmurs, gallops, or rubs. RESPIRATORY: Breath sounds equal bilaterally. No accessory muscle use. GASTROINTESTINAL: Abdomen soft, non-tender, nondistended. MUSCULOSKELETAL: No cyanosis, or edema. BACK: Nontender without obvious deformity. No CVA tenderness. A/P Assessment and Plan VDRF Pneumonia Aspiration DM Dementia Ventriculomegaly PLAN: Vent Support PRVC-AC 14, Fi02 40% Cont Abx Check cultures Sedation with Fentanyl Aerosol nebs SQ Heparin DW Will bronch bedside israelmoLuis Belcher MD Oct 31, 2016 18:48
[2016-10-31] MEDS: INSULIN DETEMIR 100 UNITS/ML VIAL SQ SCH (20:46)
[2016-10-31 21:44] LABS: PROTHROMBIN TIME - PATIENT 10.8 SEC (9.8-11.6)
[2016-10-31 21:57] LABS: AUTOMATED NEUTROPHIL # 7.9 TH/MM3 (1.8-7.7); BASOPHIL % 0.3 % (0.0-2.0); EOSINOPHIL # 0.4 TH/MM3 (0-0.4); HEMATOCRIT 37.3 % (35.0-46.0); HEMO FLAGS DIFF FINAL; LYMPHOCYTE # 3.3 TH/MM3 (1.0-4.8); MEAN CELL VOLUME 91.2 FL (80.0-100.0); MEAN CORPUSCULAR HEMOGLOBIN 29.1 PG (27.0-34.0); MEAN CORPUSCULAR HGB CONC 31.9 % (32.0-36.0); MONO % 8.9 % (0.0-8.0); NEUT % 61.8 % (16.0-70.0); PLATELET COUNT 245 TH/MM3 (150-450); RED BLOOD COUNT 4.09 MIL/MM3 (4.00-5.30); RED CELL DISTRIBUTION WIDTH 14.7 % (11.6-17.2); WHITE BLOOD COUNT 12.9 TH/MM3 (4.0-11.0)
[2016-11-01] VITALS (20 sets, daily range): BP systolic 116–126; BP diastolic 57–65; PULSE 88–116; RESP 14–18; TEMP 99.1–100.4; O2SAT 91–100
[2016-11-01] MEDS: HEPARIN SODIUM - SQ 10,000 UNITS/ML VIAL SQ SCH ×4 (00:21→23:27)
[2016-11-01] MEDS: PROPOFOL 1000 MG/100 ML INJ 100 ML IV PRN ×5 (00:21→20:44)
[2016-11-01] MEDS: AZTREONAM INJ 2,000 MG in SODIUM CHLORIDE 0.9% INJ 100 ML IV SCH ×4 (00:23→23:26)
[2016-11-01] MEDS: metroNIDAZOLE 500 MG INJ 100 ML IV SCH ×4 (00:27→20:45)
[2016-11-01] MEDS: RESP: ALBUTEROL 2.5 MG/IPRATROPIUM 0.5 MG NEB (SCH) NEB ×6 (03:53→19:58)
--- NOTE | 2016-11-01 04:59 | RADRPT ---
EXAM DATE/TIME: 11/01/2016 03:56 [place] COMPARISON: CHEST SINGLE AP, October 31, 2016, 2:38. INDICATIONS : Shortness of breath, possible pulmonary disease. MEDICAL HISTORY : Osteoarthritis. Diabetes mellitus type II. Hypertension. SURGICAL HISTORY : None. ENCOUNTER: Subsequent ACUITY: 4 - 6 days PAIN SCORE: Non-responsive. LOCATION: Bilateral chest FINDINGS: A single portable frontal view of the chest shows cardiomegaly with pulmonary vascular engorgement. B ibasilar consolidations. No effusions. Endotracheal tube tip 3 cm proximal to radhika. The nasogastric tube in the body of the stomach. Chronic subluxation of the right shoulder with possible free bodies in the joint. CONCLUSION: Cardiomegaly with bibasilar pulmonary infiltrates. Pulmonary vascular engorgement. Eric Levine Jr., MD on November 01, 2016 at 4:57 Board Certified Radiologist. This report was verified electronically.
[2016-11-01 05:04] LABS: BASOPHIL # 0.1 TH/MM3 (0-0.2); BASOPHIL % 0.8 % (0.0-2.0); EOSINOPHIL # 0.4 TH/MM3 (0-0.4); EOSINOPHIL % 3.5 % (0.0-4.0); HEMATOCRIT 37.1 % (35.0-46.0); HEMO FLAGS DIFF FINAL; LYMPH % 23.6 % (9.0-44.0); LYMPHOCYTE # 2.6 TH/MM3 (1.0-4.8); MEAN CELL VOLUME 88.9 FL (80.0-100.0); MEAN CORPUSCULAR HEMOGLOBIN 29.4 PG (27.0-34.0); MONO % 8.1 % (0.0-8.0); PLATELET COUNT 240 TH/MM3 (150-450); RED BLOOD COUNT 4.18 MIL/MM3 (4.00-5.30); RED CELL DISTRIBUTION WIDTH 14.5 % (11.6-17.2)
[2016-11-01 07:48] LABS: ALKALINE PHOSPHATASE 110 U/L (45-117); ALT (GPT) 11 U/L (10-53); ANION GAP 10 MEQ/L (5-15); AST (GOT) 24 U/L (15-37); BICARBONATE 22.5 MEQ/L (21.0-32.0); BLOOD UREA NITROGEN 22 MG/DL (7-18); CHLORIDE 110 MEQ/L (98-107); GLOMERULAR FILTRATION RATE 75 ML/MIN (>89); POTASSIUM 3.9 MEQ/L (3.5-5.1); SODIUM (NA) 142 MEQ/L (136-145); TOTAL BILIRUBIN ADULT 0.2 MG/DL (0.2-1.0)
[2016-11-01] MEDS ORDERED: MUPIROCIN 2% OINT 1 APPLIC/GM SYR NASAL SCH (09:00)
[2016-11-01] MEDS: METOPROLOL TARTRATE 25 MG TAB PO SCH ×2 (09:20→20:45)
[2016-11-01] MEDS: FAMOTIDINE 20 MG TAB PO SCH ×2 (09:20→20:45)
[2016-11-01] MEDS: INSULIN DETEMIR 100 UNITS/ML VIAL SQ SCH ×2 (09:20→20:00)
[2016-11-01] MEDS: CHLORHEXIDINE 0.12% (ORAL KIT) 15 ML CUP MT SCH ×2 (09:21→20:44)
[2016-11-01] MEDS: SODIUM CHLORIDE 0.9% FLUSH 10 ML FLUSH IV FLUSH SCH ×2 (09:21→20:45)
[2016-11-01] MEDS: INSULIN ASPART SUPPLEMENTAL SCALE SQ SCH ×4 (12:00→23:27)
[2016-11-01] MEDS: hydrALAZINE HCL 20 MG/ML VIAL IV PUSH PRN ×2 (12:29→21:03)
--- NOTE | 2016-11-01 12:29 | HHI.IDPN ---
Note Infectious Disease Note Patient on the vent. Failed CPAP again this am. Has a lot of oral secretions. Awake and responsive. Afebrile. Admitted with respiratory distress. PAST MEDICAL HISTORY 1. Dementia. 2. Diabetes mellitus. 3. Hypertension. 4. Thyroid disease. 5. Anxiety, depression. 6. Arthritis. ALLERGIES AMOXICILLIN, PROPOXYPHENE. ANTIBIOTICS: Azactam. OBJECTIVE: Vital Signs Date Time Temp Pulse Resp B/P (MAP) Pulse Ox O2 Delivery O2 Flow Rate FiO2 11/01/16 11:17 35 11/01/16 11:12 35 11/01/16 09:08 97 35 11/01/16 08:00 35 11/01/16 06:00 105 11/01/16 04:18 100 35 11/01/16 04:00 103 11/01/16 04:00 105 11/01/16 04:00 35 11/01/16 04:00 99.7 95 18 116/65 (82) 95 11/01/16 02:00 103 11/01/16 01:27 91 35 11/01/16 00:00 88 11/01/16 00:00 35 11/01/16 00:00 99.1 88 18 122/58 (79) 96 10/31/16 22:22 94 35 10/31/16 22:00 105 10/31/16 20:02 100 35 10/31/16 20:00 111 10/31/16 20:00 35 10/31/16 20:00 35 10/31/16 20:00 110 10/31/16 20:00 98.5 110 15 168/74 (105) 92 10/31/16 18:00 104 10/31/16 16:00 99.8 104 17 158/67 (97) 100 10/31/16 16:00 35 10/31/16 16:00 104 10/31/16 15:58 100 35 10/31/16 14:00 119 10/31/16 13:11 100 35 Laboratory Tests Test 10/31/16 03:35 10/31/16 20:15 11/01/16 04:08 White Blood Count 12.7 TH/MM3 12.9 TH/MM3 11.0 TH/MM3 Red Blood Count 3.90 MIL/MM3 4.09 MIL/MM3 4.18 MIL/MM3 Hemoglobin 11.7 GM/DL 11.9 GM/DL 12.3 GM/DL Hematocrit 34.9 % 37.3 % 37.1 % Mean Corpuscular Volume 89.5 FL 91.2 FL 88.9 FL Mean Corpuscular Hemoglobin 30.0 PG 29.1 PG 29.4 PG Mean Corpuscular Hemoglobin Concent 33.6 % 31.9 % 33.0 % Red Cell Distribution Width 14.6 % 14.7 % 14.5 % Platelet Count 229 TH/MM3 245 TH/MM3 240 TH/MM3 Mean Platelet Volume 8.9 FL 8.6 FL 8.7 FL Neutrophils (%) (Auto) 63.3 % 61.8 % 64.0 % Lymphocytes (%) (Auto) 22.8 % 26.0 % 23.6 % Monocytes (%) (Auto) 9.6 % 8.9 % 8.1 % Eosinophils (%) (Auto) 3.8 % 3.0 % 3.5 % Basophils (%) (Auto) 0.5 % 0.3 % 0.8 % Neutrophils # (Auto) 8.0 TH/MM3 7.9 TH/MM3 7.0 TH/MM3 Lymphocytes # (Auto) 2.9 TH/MM3 3.3 TH/MM3 2.6 TH/MM3 Monocytes # (Auto) 1.2 TH/MM3 1.1 TH/MM3 0.9 TH/MM3 Eosinophils # (Auto) 0.5 TH/MM3 0.4 TH/MM3 0.4 TH/MM3 Basophils # (Auto) 0.1 TH/MM3 0.0 TH/MM3 0.1 TH/MM3 CBC Comment DIFF FINAL DIFF FINAL DIFF FINAL Differential Comment Laboratory Tests Test 10/31/16 03:35 10/31/16 14:05 11/01/16 04:08 Blood Urea Nitrogen 18 MG/DL 22 MG/DL Creatinine 0.76 MG/DL 0.76 MG/DL Random Glucose 271 MG/DL 326 MG/DL Total Protein 6.1 GM/DL 6.4 GM/DL Calcium Level 7.3 MG/DL 8.1 MG/DL Sodium Level 141 MEQ/L 142 MEQ/L Potassium Level 4.1 MEQ/L 3.9 MEQ/L Chloride Level 109 MEQ/L 110 MEQ/L Carbon Dioxide Level 24.4 MEQ/L 22.5 MEQ/L Anion Gap 8 MEQ/L 10 MEQ/L Estimat Glomerular Filtration Rate 75 ML/MIN 75 ML/MIN Protein Corrected Calcium 7.8 MG/DL Thyroxine (T4) 6.7 MCG/DL Total Triiodothyronine 90 NG/DL Thyroid Stimulating Hormone 3rd Gen 0.707 uIU/ML Albumin 2.4 GM/DL Alkaline Phosphatase 110 U/L Aspartate Amino Transf (AST/SGOT) 24 U/L Alanine Aminotransferase (ALT/SGPT) 11 U/L Total Bilirubin 0.2 MG/DL IMAGING: Chest X-Ray 10/31/16 0600 Signed Impressions: Service Date/Time: Monday, October 31, 2016 02:38 - CONCLUSION: Limited study by motion artifact. Lines and tubes. Grossly clear lungs. Eric Levine Jr., MD Thyroid Ultrasound 10/31/16 0000 Signed Impressions: Service Date/Time: Monday, October 31, 2016 11:47 - CONCLUSION: Large complex mass right lobe of the thyroid. Minimally increased in size since Jacoby Torre MD FACR Chest X-Ray 10/30/16 0000 Signed Impressions: Service Date/Time: Sunday, October 30, 2016 08:56 - CONCLUSION: 1. Cardiomegaly and interstitial edema. 2. Right hilar prominence again seen. Edwin Jacome MD Abdomen X-Ray 10/29/16 0000 Signed Impressions: Service Date/Time: Saturday, October 29, 2016 15:32 - CONCLUSION: Negative for radiopaque foreign bodies. Jacoby Torre MD FACR Chest CT 10/28/16 1814 Signed Impressions: Service Date/Time: Friday, October 28, 2016 18:28 - CONCLUSION: 1. Abnormality on chest radiograph corresponds to a 3.4 x 3.5 cm central right hilar mass/adenopathy with associated postobstructive airspace consolidation in the inferior right upper lobe. There are at least 2 additional pulmonary nodules measuring 13 x 8 mm in the anterior right middle lobe and 8 x 8 mm in the anterior right upper lobe near the apex. 2. 3.9 x 4.3 cm heterogeneous nodule in the right thyroid gland. No significant regional cervical adenopathy. 3. Patchy bilateral lower lobe air space consolidation and diffuse ground glass opacities. Differential considerations include ARDS versus infection versus aspiration. 1. Tyler Selby MD Head CT 10/28/16 0000 Signed Impressions: Service Date/Time: Friday, October 28, 2016 20:44 - CONCLUSION: 1. No bleed or evidence of acute infarction. 2. Atrophy and chronic white matter changes. 3. Moderate ventriculomegaly, beyond that expected for the degree of atrophy. Normal pressure hydrocephalus would be in the differential. Keshav Burks MD PHYSICAL EXAMINATION GENERAL: On the ventilator. No acute distress. NECK: Obese, fullness palpated at the right lateral neck. No induration. LUNGS: Bilateral rhonchi. HEART: Regular rate and rhythm without audible murmurs or rubs or gallops. ABDOMEN: Obese, soft, diminished bowel sounds. No tenderness appreciated. EXTREMITIES: No clubbing or cyanosis or edema. SKIN: No rash. NEURO: Alert. Moves all extremities. PSYCHE: Unable to assess. IMPRESSION 1. Bilateral pneumonia with hilar cavitary mass. Sputum culture has no growth. The patient also has lung nodules and also a thyroid lesion and hence, potentially may have malignancy. 2. Acute respiratory failure. 3. UTI - E.coli. (S) to Aztreonam. 4. Low grade fever. RECOMMENDATIONS 1. Continue aztreonam. 2. Monitor temp. 3. Monitor clinical status. Francisco Zarate MD Nov 01, 2016 12:28
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
--- NOTE | 2016-11-01 15:55 | HHI.CCPN ---
Subjective Remarks/Hospital Course HPI 70-year-old residential resident with a medical history significant for dementia, diabetes mellitus, hyperlipidemia, reactive airway disease who was found to have altered mental status at the residential for which EMS was called. Patient was noted to have O2 sats in the 70s. She was very apneic with her head slumped down. Paramedics report of having to hold her head up to have her breathe with the nebulizer treatment in place. Patient was given Solu- Medrol 125 mg IV and 4 nebulizer treatments prior to arrival in the ER for documentation. On arrival in the ER patient was extremely lethargic however was reportedly able to answer some questions. Patient was felt not to be able to protect her airway as well as very hypoxic and hence was intubated by ER physician and placed on mechanical ventilation. Chest x-ray in the ER showed bilateral infiltrates and possible cavitary lesion. She was accepted for admission by critical care medicine service. CT chest was ordered by ER physician. When I evaluated the patient in the ER she was sedated with propofol , orally intubated on mechanical ventilation. History was obtained by reviewing records and discussion with ER physician. 10/29 Patient is sedated with Diprivan and intubated. Afebrile. 10/30 Patient remains sedated and intubated. T:99.7 last night. 10/31: Intubated sedated. CT reviewed and discussed with Dr. Madison. Will consider Bronch. Also check thyroid US and possible biopsy. Check thyroid studies. Also consult palliative care as patient has underlying dementia with NPH and possible malignancy. Subjective 11/01: Tmax 100.3. Plan for bronchoscopy at 3:00 today. Noted thyroid masses chronic/since 2011. Tolerating tube feeding. Positive BM. Objective Vital Signs Date Time Temp Pulse Resp B/P (MAP) Pulse Ox O2 Delivery O2 Flow Rate FiO2 11/01/16 14:56 100 35 11/01/16 14:00 115 11/01/16 12:00 100.3 14 122/58 (79) 10/28/16 18:58 Auto-Vent 10/28/16 16:00 15.00 Intake and Output 11/01/16 11/01/16 11/02/16 08:00 16:00 00:00 Intake Total 2101 ml 200 ml Output Total 850 ml Balance 1251 ml 200 ml Result Diagram: 11/01/16 0408 11/01/16 0408 Other Results Microbiology Date/Time Source Procedure Growth Status 10/28/16 16:15 Blood Peripheral Aerobic Blood Culture - Preliminary NO GROWTH IN 4 DAYS Resulted 10/28/16 16:15 Blood Peripheral Anaerobic Blood Culture - Preliminary NO GROWTH IN 4 DAYS Resulted 10/28/16 21:00 Sputum Endotracheal Acid Fast Stain - Final NO ACID FAST BACILLI SEEN Resulted 10/28/16 21:00 Sputum Endotracheal Mycobacterial Culture Pending Resulted 10/28/16 17:00 Urine Catheterized Urine Streptococcus pneumoniae Antigen (M - Final PRESUMPTIVE NEGATIVE FOR STREPTOCOCCU... Complete 10/28/16 17:00 Other - Final Complete Imaging Last Impressions Chest X-Ray 11/01/16 0600 Signed Impressions: Service Date/Time: October 03:56 - CONCLUSION: Cardiomegaly with bibasilar pulmonary infiltrates. Pulmonary vascular engorgement. Eric Levine Jr., MD Thyroid Ultrasound 10/31/16 0000 Signed Impressions: Service Date/Time: Monday, October 31, 2016 11:47 - CONCLUSION: Large complex mass right lobe of the thyroid. Minimally increased in size since Jacoby Torre MD FACR Brain MRI 10/30/16 0000 Signed Impressions: Service Date/Time: Sunday, October 30, 2016 11:38 - CONCLUSION: 1. Ventriculomegaly/hydrocephalus, differential includes normal pressure hydrocephalus and aqueductal stenosis. 2. Extensive nonspecific white matter changes. Edwin Jacome MD Abdomen X-Ray 10/29/16 0000 Signed Impressions: Service Date/Time: Saturday, October 29, 2016 15:32 - CONCLUSION: Negative for radiopaque foreign bodies. Jacoby Torre MD FACR Chest CT 10/28/16 1814 Signed Impressions: Service Date/Time: Friday, October 28, 2016 18:28 - CONCLUSION: 1. Abnormality on chest radiograph corresponds to a 3.4 x 3.5 cm central right hilar mass/adenopathy with associated postobstructive airspace consolidation in the inferior right upper lobe. There are at least 2 additional pulmonary nodules measuring 13 x 8 mm in the anterior right middle lobe and 8 x 8 mm in the anterior right upper lobe near the apex. 2. 3.9 x 4.3 cm heterogeneous nodule in the right thyroid gland. No significant regional cervical adenopathy. 3. Patchy bilateral lower lobe air space consolidation and diffuse ground glass opacities. Differential considerations include ARDS versus infection versus aspiration. 1. Tyler Selby MD Head CT 10/28/16 0000 Signed Impressions: Service Date/Time: Friday, October 28, 2016 20:44 - CONCLUSION: 1. No bleed or evidence of acute infarction. 2. Atrophy and chronic white matter changes. 3. Moderate ventriculomegaly, beyond that expected for the degree of atrophy. Normal pressure hydrocephalus would be in the differential. Keshav Burks MD Objective Remarks GENERAL: 71-year-old female, critically ill currently orotracheally intubated SKIN: Warm and dry. No rash HEAD: Atraumatic. Normocephalic. EYES: Pupils equal and round about 3 mm bilaterally and reactive. No scleral icterus. No injection or drainage. ENT: No nasal bleeding or discharge. Mucous membranes pink and moist. NECK: Trachea midline. No JVD. Right-sided thyromegaly/palpable mass noted CARDIOVASCULAR: Tachycardic, RR. S1, S2 no S4. Without murmur RESPIRATORY: Diminished breath sounds right upper lobe. Coarse crackles appreciated bilaterally. No wheeze GASTROINTESTINAL: Abdomen soft, non-tender, nondistended. Hepatic and splenic margins not palpable. MUSCULOSKELETAL: Extremities bilateral trace nonpitting lower extremity edema. No obvious deformities. NEUROLOGICAL: On sedation vacation following commands using the right upper and lower extremity only.. A/P Assessment and Plan Acute hypoxemic respiratory failure Severe sepsis Suspect aspiration pneumonia Right hilar mass with Pulmonary nodules ? Metastatic lung CA Thyroid mass Reactive airway disease Diabetes mellitus Hyperlipidemia Hypertension Plan: Neuro/Psych: Depression/anxiety Toxic metabolic encephalopathy Ventriculomegaly History of dementia On Diprivan infusion at 50 mcg/kg per minute for sedation. Goal of RA SS -[address] brain: Moderate ventriculomegaly, beyond that expected for the degree of atrophy. MRI confirms. Neurosurgery is following- Dr. Hernandez No acute intervention Currently holding home medications clonazepam 0.5 mg twice a day and quetiapine 25 mg at night CV: Hypertension Dyslipidemia Lopressor 25mg [id number] HR and BP keep MAP>65mmHg Home medication for hypertension include amlodipine 10 mg by mouth daily and carvedilol 25 mg by mouth twice a day As needed hydralazine for hypertension Currently holding atorvastatin 40 mg by mouth daily for dyslipidemia. Resume when clinically indicated Pulm Acute hypoxemic respiratory failure possibly secondary to post obstructive pneumonia [facility] /02/15/34 Ventilator bundle Albuterol/hypertensive aerosols every 4 hours with albuterol aerosols every 2 hours. Dyspnea. Acid tube minutes on PSV trial today CT chest reviewed revealed 3.4 x 2.5 right hilar mass with post discharge pneumonia in the right upper lobe. Right middle lobe mass. .Pulm is following- Dr. Madison, to bronch with BAL Sputum culture negative to date Renal/: Monitor renal function, I/O's, electrolytes replacement per protocol. GI/liver: Continue with Glucerna 1.5 at 40 cc an hour On famotidine 20mg BID for GI prophylaxis ID: Escherichia coli UTI Postobstructive pneumonia Continue with abx ( Aztreonam, Levaquin, Flagyl, Zyvox) monitor for signs of infections ( Fever, WBC). Follow up on cultures. Strep pneumonia urinary Ag negative. ID is following- Dr. Zarate Urine cx 10/28: E COLI Heme: Monitor CBC. Patient has hilar mass with pulmonary nodules, also thyroid mass. Given underlying dementia and possible NPH I will hold off any further diagnostic studies and to a meeting with family can be arranged. Palliative care consulted Endocrine: Diabetes mellitus Currently on insulin detemir 10 units twice a day Right thyroid mass 6.8 cm/chronic SSI for glycemic control(medium scale) Patient is on insulin glargine at home Prophylaxis: Pepcid via OG tube, SCDs/subcutaneous heparin CCT 30 mins Niraj Malloy MD Nov 01, 2016 15:55
[2016-11-01] MEDS ORDERED: MIDAZOLAM HCL 5 MG/ML VIAL (1 ML) ONE (15:58)
[2016-11-01] MEDS ORDERED: MIDAZOLAM HCL 5 MG/ML VIAL (1 ML) IV ONE (17:00)
--- NOTE | 2016-11-01 17:00 | HHI.PR ---
Subjective Remarks 70 YOWF with VDRF,Pneumonia, ? 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 no Endobronchial lesion> Objective Vital Signs Vital Signs Date Time Temp Pulse Resp B/P (MAP) Pulse Ox O2 Delivery O2 Flow Rate FiO2 11/01/16 16:22 100 100 11/01/16 14:56 100 35 11/01/16 14:00 115 11/01/16 12:38 100 35 11/01/16 12:00 108 11/01/16 12:00 100.3 108 14 122/58 (79) 99 11/01/16 12:00 35 11/01/16 11:17 35 11/01/16 11:12 35 11/01/16 10:00 108 11/01/16 09:08 97 35 11/01/16 08:00 99.9 104 14 126/60 (82) 98 11/01/16 08:00 104 11/01/16 08:00 35 11/01/16 06:00 105 11/01/16 04:18 100 35 11/01/16 04:00 103 11/01/16 04:00 105 11/01/16 04:00 35 11/01/16 04:00 99.7 95 18 116/65 (82) 95 11/01/16 02:00 103 11/01/16 01:27 91 35 11/01/16 00:00 88 11/01/16 00:00 35 11/01/16 00:00 99.1 88 18 122/58 (79) 96 10/31/16 22:22 94 35 10/31/16 22:00 105 10/31/16 20:02 100 35 10/31/16 20:00 111 10/31/16 20:00 35 10/31/16 20:00 35 10/31/16 20:00 110 10/31/16 20:00 98.5 110 15 168/74 (105) 92 10/31/16 18:00 104 I/O 10/31/16 10/31/16 10/31/16 11/01/16 11/01/16 11/01/16 07:00 15:00 23:00 07:00 15:00 23:00 Intake Total 899 ml 500 ml 957 ml 2101 ml 200 ml 268 ml Output Total 800 ml 1650 ml 850 ml Balance 99 ml 500 ml -693 ml 1251 ml 200 ml 268 ml Intake IV Total 200 ml 500 ml 200 ml 1436 ml 200 ml 268 ml Tube Feeding 699 ml 637 ml 665 ml Other 120 ml Output Urine Total 800 ml 1650 ml 850 ml # Bowel Movements 1 2 Result Diagram: 11/01/1640711/01/16407 Objective Remarks GENERAL: MBMN WF, intubated, sedated SKIN: Warm and dry. HEAD: Normocephalic. EYES: No scleral icterus. No injection or drainage. NECK: Supple, trachea midline. No JVD or lymphadenopathy. CARDIOVASCULAR: Regular rate and rhythm without murmurs, gallops, or rubs. RESPIRATORY: Breath sounds equal bilaterally. No accessory muscle use. GASTROINTESTINAL: Abdomen soft, non-tender, nondistended. MUSCULOSKELETAL: No cyanosis, or edema. BACK: Nontender without obvious deformity. No CVA tenderness. A/P Assessment and Plan VDRF Pneumonia Aspiration DM Dementia Ventriculomegaly PLAN: Vent Support PRVC-AC 14, Fi02 40% Cont Abx Check cultures Sedation with Fentanyl Aerosol nebs SQ Heparin Check bronch results Luis Madison MD Nov 01, 2016 17:00
[2016-11-01] MEDS: ACETAMINOPHEN 325 MG TAB PO PRN ×2 (17:27→18:27)
--- NOTE | 2016-11-01 17:45 | MR ---
cc: NEAL DESIR DATE OF PROCEDURE 11/01/2016 PROCEDURE Bronchoscopy PREOPERATIVE DIAGNOSIS Right lung density. POSTOPERATIVE DIAGNOSIS 1. No endobronchial lesion seen, 2. Right lung mucus plugging 3. Tracheal bronchomalacia PROCEDURE IN DETAIL Informed consent was obtained from the patient's POA. Procedure and complication were explained. The patient is already on the ventilator. She was sedated with Diprivan. She was given Versed 5 mg. Bronchoscopy done through the endotracheal tube. Main radhika is sharp. Bronchoscope advanced to the left lung, left upper lingula, lower lobe were visualized. Small amount of thick mucous was suctioned. After suctioning, all subsegments were found to be patent. Then bronchoscope was pulled back, advanced to the right lung, right upper, middle lower lobe were visualized. Small amount of mucus plugs were suctioned. No endobronchial lesion was seen. Right upper lobe bronchial washings was done. Bronchial washings sent for routine culture, AFB and fungal culture and cytology. . The patient has tracheo- bronchomalacia. The patient tolerated the procedure well. Postprocedure chest x-ray ordered. MD ADRIAN Flores/ /4:22 PM /5:26 PM MTDD
[2016-11-01] MEDS: MUPIROCIN 2% OINT 1 APPLIC/GM SYR EACH NARE SCH (20:45)
[2016-11-01] MEDS: ARTIFICIAL TEARS OPTH SOLN 15 ML BTL EACH EYE SCH (20:50)
[2016-11-02] VITALS (17 sets, daily range): BP systolic 102–175; BP diastolic 49–74; PULSE 91–121; RESP 14–16; TEMP 97.5–100.6; O2SAT 97–100
[2016-11-02] MEDS: PROPOFOL 1000 MG/100 ML INJ 100 ML IV PRN ×5 (00:06→19:57)
[2016-11-02] MEDS: RESP: ALBUTEROL 2.5 MG/IPRATROPIUM 0.5 MG NEB (SCH) NEB ×6 (00:54→23:29)
[2016-11-02] MEDS: CHLORHEXIDINE GLUCONATE 2 % 1 PACK (2 CLOTHS) TOP SCH (04:00)
[2016-11-02] MEDS: INSULIN ASPART SUPPLEMENTAL SCALE SQ SCH ×3 (05:43→18:00)
[2016-11-02] MEDS: metroNIDAZOLE 500 MG INJ 100 ML IV SCH (05:43)
[2016-11-02] MEDS: ARTIFICIAL TEARS OPTH SOLN 15 ML BTL EACH EYE SCH ×3 (05:43→22:54)
[2016-11-02 06:50] LABS: MEAN CELL VOLUME 89.8 FL (80.0-100.0); MEAN CORPUSCULAR HGB CONC 32.3 % (32.0-36.0); PLATELET COUNT 218 TH/MM3 (150-450); RED BLOOD COUNT 3.78 MIL/MM3 (4.00-5.30); RED CELL DISTRIBUTION WIDTH 14.5 % (11.6-17.2); REVIEW FLAG FINAL; WHITE BLOOD COUNT 11.3 TH/MM3 (4.0-11.0)
[2016-11-02 07:15] LABS: BICARBONATE 22.7 MEQ/L (21.0-32.0); MAGNESIUM 2.5 MG/DL (1.5-2.5)
[2016-11-02] MEDS: FAMOTIDINE 20 MG TAB PO SCH ×2 (07:48→22:53)
[2016-11-02] MEDS: METOPROLOL TARTRATE 25 MG TAB PO SCH ×2 (07:48→22:54)
[2016-11-02] MEDS: MUPIROCIN 2% OINT 1 APPLIC/GM SYR EACH NARE SCH ×2 (07:48→22:53)
[2016-11-02] MEDS: HEPARIN SODIUM - SQ 10,000 UNITS/ML VIAL SQ SCH ×2 (07:48→15:11)
[2016-11-02] MEDS: AZTREONAM INJ 2,000 MG in SODIUM CHLORIDE 0.9% INJ 100 ML IV SCH ×2 (07:49→15:11)
[2016-11-02] MEDS: CHLORHEXIDINE 0.12% (ORAL KIT) 15 ML CUP MT SCH ×2 (07:49→22:53)
[2016-11-02] MEDS: SODIUM CHLORIDE 0.9% FLUSH 10 ML FLUSH IV FLUSH SCH ×2 (09:45→22:53)
[2016-11-02] MEDS: INSULIN DETEMIR 100 UNITS/ML VIAL SQ SCH ×2 (09:45→20:00)
--- NOTE | 2016-11-02 11:05 | HHI.CCPN ---
Subjective Remarks/Hospital Course HPI 70-year-old [facility] resident with a medical history significant for dementia, diabetes mellitus, hyperlipidemia, reactive airway disease who was found to have altered mental status at the [facility] for which EMS was called. Patient was noted to have O2 sats in the 70s. She was very apneic with her head slumped down. Paramedics report of having to hold her head up to have her breathe with the nebulizer treatment in place. Patient was given Solu- Medrol 125 mg IV and 4 nebulizer treatments prior to arrival in the ER for documentation. On arrival in the ER patient was extremely lethargic however was reportedly able to answer some questions. Patient was felt not to be able to protect her airway as well as very hypoxic and hence was intubated by ER physician and placed on mechanical ventilation. Chest x-ray in the ER showed bilateral infiltrates and possible cavitary lesion. She was accepted for admission by critical care medicine service. CT chest was ordered by ER physician. When I evaluated the patient in the ER she was sedated with propofol , orally intubated on mechanical ventilation. History was obtained by reviewing records and discussion with ER physician. 10/29 Patient is sedated with Diprivan and intubated. Afebrile. 10/30 Patient remains sedated and intubated. T:99.7 last night. 10/31: Intubated sedated. CT reviewed and discussed with Dr. Madison. Will consider Bronch. Also check thyroid US and possible biopsy. Check thyroid studies. Also consult palliative care as patient has underlying dementia with NPH and possible malignancy. 11/01: Tmax 100.3. Plan for bronchoscopy at 3:00 today. Noted thyroid masses chronic/since 2011. Tolerating tube feeding. Positive BM. Subjective 11/02: Tmax 100.1. Status post bronchoscopy yesterday with removal of mucous plugging. Tolerating tube feeds. Positive BM. Weaning propofol sedation today. Objective Vital Signs Date Time Temp Pulse Resp B/P (MAP) Pulse Ox O2 Delivery O2 Flow Rate FiO2 11/02/16 08:22 100 35 11/02/16 08:00 100.1 116 16 175/74 (107) Intake and Output 11/02/16 11/02/16 11/03/16 08:00 16:00 00:00 Intake Total 846 ml Output Total 550 ml Balance 296 ml Result Diagram: 11/02/16 0616 11/02/16 0616 Other Results Microbiology Date/Time Source Procedure Growth Status 10/28/16 16:15 Blood Peripheral Aerobic Blood Culture - Final NO GROWTH IN 5 DAYS Complete 10/28/16 16:15 Blood Peripheral Anaerobic Blood Culture - Final NO GROWTH IN 5 DAYS Complete 11/01/16 16:20 Bronchial Washings Right Upper Lobe Fungal Smear Pending Received 11/01/16 16:20 Bronchial Washings Right Upper Lobe Fungal Culture Pending Received 10/28/16 17:00 Urine Catheterized Urine Streptococcus pneumoniae Antigen (M - Final PRESUMPTIVE NEGATIVE FOR STREPTOCOCCU... Complete 10/28/16 17:00 Other - Final Complete Imaging Last Impressions Chest X-Ray 11/01/16 0600 Signed Impressions: Service Date/Time: October 03:56 - CONCLUSION: Cardiomegaly with bibasilar pulmonary infiltrates. Pulmonary vascular engorgement. Eric Levine Jr., MD Thyroid Ultrasound 10/31/16 0000 Signed Impressions: Service Date/Time: Monday, October 31, 2016 11:47 - CONCLUSION: Large complex mass right lobe of the thyroid. Minimally increased in size since Jacoby Torre MD FACR Brain MRI 10/30/16 0000 Signed Impressions: Service Date/Time: Sunday, October 30, 2016 11:38 - CONCLUSION: 1. Ventriculomegaly/hydrocephalus, differential includes normal pressure hydrocephalus and aqueductal stenosis. 2. Extensive nonspecific white matter changes. Edwin Jacome MD Abdomen X-Ray 10/29/16 0000 Signed Impressions: Service Date/Time: Saturday, October 29, 2016 15:32 - CONCLUSION: Negative for radiopaque foreign bodies. Jacoby Torre MD FACR Chest CT 10/28/16 1814 Signed Impressions: Service Date/Time: Friday, October 28, 2016 18:28 - CONCLUSION: 1. Abnormality on chest radiograph corresponds to a 3.4 x 3.5 cm central right hilar mass/adenopathy with associated postobstructive airspace consolidation in the inferior right upper lobe. There are at least 2 additional pulmonary nodules measuring 13 x 8 mm in the anterior right middle lobe and 8 x 8 mm in the anterior right upper lobe near the apex. 2. 3.9 x 4.3 cm heterogeneous nodule in the right thyroid gland. No significant regional cervical adenopathy. 3. Patchy bilateral lower lobe air space consolidation and diffuse ground glass opacities. Differential considerations include ARDS versus infection versus aspiration. 1. Tyler Selby MD Head CT 10/28/16 0000 Signed Impressions: Service Date/Time: Friday, October 28, 2016 20:44 - CONCLUSION: 1. No bleed or evidence of acute infarction. 2. Atrophy and chronic white matter changes. 3. Moderate ventriculomegaly, beyond that expected for the degree of atrophy. Normal pressure hydrocephalus would be in the differential. Keshav Burks MD Objective Remarks GENERAL: 71-year-old female, critically ill currently orotracheally intubated SKIN: Warm and dry. No rash HEAD: Atraumatic. Normocephalic. EYES: Pupils equal and round about 3 mm bilaterally and reactive. No scleral icterus. No injection or drainage. ENT: No nasal bleeding or discharge. Mucous membranes pink and moist. NECK: Trachea midline. No JVD. Right-sided thyromegaly/palpable mass noted CARDIOVASCULAR: Tachycardic, RR. S1, S2 no S4. Without murmur RESPIRATORY: Diminished breath sounds right upper lobe. Coarse crackles appreciated bilaterally. No wheeze GASTROINTESTINAL: Abdomen soft, non-tender, nondistended. Hepatic and splenic margins not palpable. MUSCULOSKELETAL: Extremities bilateral trace nonpitting lower extremity edema. No obvious deformities. NEUROLOGICAL: On sedation vacation following commands using bilateral upper extremities yesterday A/P Assessment and Plan Plan: Neuro/Psych: Depression/anxiety Toxic metabolic encephalopathy Ventriculomegaly History of dementia On Diprivan infusion at 30 mcg/kg per minute for sedation. Goal of RA SS -[address] brain: Moderate ventriculomegaly, beyond that expected for the degree of atrophy. MRI confirms. Neurosurgery is following- Dr. Hernandez No acute intervention Currently holding home medications clonazepam 0.5 mg twice a day and quetiapine 25 mg at night CV: Hypertension Dyslipidemia Lopressor 25mg [id number] HR and BP keep MAP>65mmHg Home medication for hypertension include amlodipine 10 mg by mouth daily and carvedilol 25 mg by mouth twice a day As needed hydralazine for hypertension Currently holding atorvastatin 40 mg by mouth daily for dyslipidemia. Resume when clinically indicated Pulm Acute hypoxemic respiratory failure possibly secondary to post obstructive pneumonia PRVC 14/02/15/34 Ventilator bundle Albuterol/hypertensive aerosols every 4 hours with albuterol aerosols every 2 hours. Dyspnea. Acid tube minutes on PSV trial today CT chest reviewed revealed 3.4 x 2.5 right hilar mass with post discharge pneumonia in the right upper lobe. Right middle lobe mass. .Pulm is following- Dr. Madison, to bronch with BAL 11/01. Results pending Sputum culture negative to date Renal/: Monitor renal function, I/O's, electrolytes replacement per protocol. GI/liver: Mild protein calorie malnutrition Continue with Glucerna 1.5 at 40 cc an hour On famotidine 20mg BID for GI prophylaxis ID: Escherichia coli UTI Postobstructive pneumonia Continue with abx ( Aztreonam, Levaquin, Flagyl, Zyvox) monitor for signs of infections ( Fever, WBC). Follow up on cultures. Strep pneumonia urinary Ag negative. ID is following- Dr. Zarate Urine cx 10/28: E COLI Heme: Leukocytosis Normocytic anemia Monitor CBC. Patient has hilar mass with pulmonary nodules, also thyroid mass. Given underlying dementia and possible NPH I will hold off any further diagnostic studies and to a meeting with family can be arranged. Palliative care consulted Endocrine: Diabetes mellitus Currently on insulin detemir 10 units twice a day Right thyroid mass 6.8 cm/chronic SSI for glycemic control(medium scale) Patient is on insulin glargine at home Prophylaxis: Pepcid via OG tube, SCDs/subcutaneous heparin CCT 30 mins Niraj Malloy MD Nov 02, 2016 11:05
--- NOTE | 2016-11-02 11:40 | HHI.PR ---
Subjective Remarks 70 YOWF with VDRF,Pneumonia, ? 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 Bronch cultures pending Objective Vital Signs Vital Signs Date Time Temp Pulse Resp B/P (MAP) Pulse Ox O2 Delivery O2 Flow Rate FiO2 11/02/16 11:30 100 35 11/02/16 10:00 109 11/02/16 08:22 100 35 11/02/16 08:00 100.1 116 16 175/74 (107) 100 11/02/16 08:00 106 11/02/16 08:00 35 11/02/16 06:00 108 11/02/16 04:38 98 35 11/02/16 04:00 112 11/02/16 04:00 97.5 112 14 148/67 (94) 100 11/02/16 04:00 35 11/02/16 02:00 93 11/02/16 00:55 98 35 11/02/16 00:00 99.3 91 14 102/49 (66) 98 11/02/16 00:00 35 11/02/16 00:00 91 11/01/16 22:15 98 35 11/01/16 22:00 93 11/01/16 20:00 35 11/01/16 20:00 116 11/01/16 20:00 100.0 116 14 118/57 (77) 98 11/01/16 19:57 98 35 11/01/16 18:00 113 11/01/16 16:22 100 100 11/01/16 16:00 35 11/01/16 16:00 100.4 114 14 116/58 (77) 100 11/01/16 16:00 114 11/01/16 14:56 100 35 11/01/16 14:00 115 11/01/16 12:38 100 35 11/01/16 12:00 108 11/01/16 12:00 100.3 108 14 122/58 (79) 99 11/01/16 12:00 35 I/O 11/01/16 11/01/16 11/01/16 11/02/16 11/02/16 11/02/16 07:00 15:00 23:00 07:00 15:00 23:00 Intake Total 2101 ml 200 ml 1547 ml 946 ml Output Total 850 ml 800 ml 550 ml Balance 1251 ml 200 ml 747 ml 396 ml Intake IV Total 1436 ml 200 ml 657 ml 500 ml Tube Feeding 665 ml 650 ml 446 ml Other 240 ml Output Urine Total 850 ml 800 ml 550 ml # Bowel Movements 2 0 Result Diagram: 11/02/1661511/02/16615 Objective Remarks GENERAL: MBMN WF, intubated, sedated SKIN: Warm and dry. HEAD: Normocephalic. EYES: No scleral icterus. No injection or drainage. NECK: Supple, trachea midline. No JVD or lymphadenopathy. CARDIOVASCULAR: Regular rate and rhythm without murmurs, gallops, or rubs. RESPIRATORY: Breath sounds equal bilaterally. No accessory muscle use. GASTROINTESTINAL: Abdomen soft, non-tender, nondistended. MUSCULOSKELETAL: No cyanosis, or edema. BACK: Nontender without obvious deformity. No CVA tenderness. A/P Assessment and Plan VDRF Pneumonia Aspiration DM Dementia Ventriculomegaly PLAN: Vent Support PRVC-AC 14, Fi02 40% Cont Abx Check cultures Sedation with Fentanyl Aerosol nebs SQ Heparin Check bronch results Code status DNR Luis Madison MD Nov 02, 2016 11:40
--- NOTE | 2016-11-02 11:45 | HHI.IDPN ---
Note Infectious Disease Note Patient on the vent. Has a lot of oral secretions. Awake and responsive. Low grade fever. WBC normal. Admitted with respiratory distress. PAST MEDICAL HISTORY 1. Dementia. 2. Diabetes mellitus. 3. Hypertension. 4. Thyroid disease. 5. Anxiety, depression. 6. Arthritis. ALLERGIES AMOXICILLIN, PROPOXYPHENE. ANTIBIOTICS: Azactam. OBJECTIVE: Vital Signs Date Time Temp Pulse Resp B/P (MAP) Pulse Ox O2 Delivery O2 Flow Rate FiO2 11/02/16 11:30 100 35 11/02/16 10:00 109 11/02/16 08:22 100 35 11/02/16 08:00 100.1 116 16 175/74 (107) 100 11/02/16 08:00 106 11/02/16 08:00 35 11/02/16 06:00 108 11/02/16 04:38 98 35 11/02/16 04:00 112 11/02/16 04:00 97.5 112 14 148/67 (94) 100 11/02/16 04:00 35 11/02/16 02:00 93 11/02/16 00:55 98 35 11/02/16 00:00 99.3 91 14 102/49 (66) 98 11/02/16 00:00 35 11/02/16 00:00 91 11/01/16 22:15 98 35 11/01/16 22:00 93 11/01/16 20:00 35 11/01/16 20:00 116 11/01/16 20:00 100.0 116 14 118/57 (77) 98 11/01/16 19:57 98 35 11/01/16 18:00 113 11/01/16 16:22 100 100 11/01/16 16:00 35 11/01/16 16:00 100.4 114 14 116/58 (77) 100 11/01/16 16:00 114 11/01/16 14:56 100 35 11/01/16 14:00 115 11/01/16 12:38 100 35 11/01/16 12:00 108 11/01/16 12:00 100.3 108 14 122/58 (79) 99 11/01/16 12:00 35 Laboratory Tests Test 10/31/16 20:15 11/01/16 04:08 11/02/16 06:16 White Blood Count 12.9 TH/MM3 11.0 TH/MM3 11.3 TH/MM3 Red Blood Count 4.09 MIL/MM3 4.18 MIL/MM3 3.78 MIL/MM3 Hemoglobin 11.9 GM/DL 12.3 GM/DL 11.0 GM/DL Hematocrit 37.3 % 37.1 % 34.0 % Mean Corpuscular Volume 91.2 FL 88.9 FL 89.8 FL Mean Corpuscular Hemoglobin 29.1 PG 29.4 PG 29.0 PG Mean Corpuscular Hemoglobin Concent 31.9 % 33.0 % 32.3 % Red Cell Distribution Width 14.7 % 14.5 % 14.5 % Platelet Count 245 TH/MM3 240 TH/MM3 218 TH/MM3 Mean Platelet Volume 8.6 FL 8.7 FL 8.8 FL Neutrophils (%) (Auto) 61.8 % 64.0 % Lymphocytes (%) (Auto) 26.0 % 23.6 % Monocytes (%) (Auto) 8.9 % 8.1 % Eosinophils (%) (Auto) 3.0 % 3.5 % Basophils (%) (Auto) 0.3 % 0.8 % Neutrophils # (Auto) 7.9 TH/MM3 7.0 TH/MM3 Lymphocytes # (Auto) 3.3 TH/MM3 2.6 TH/MM3 Monocytes # (Auto) 1.1 TH/MM3 0.9 TH/MM3 Eosinophils # (Auto) 0.4 TH/MM3 0.4 TH/MM3 Basophils # (Auto) 0.0 TH/MM3 0.1 TH/MM3 CBC Comment DIFF FINAL DIFF FINAL Differential Comment Laboratory Tests Test 10/31/16 14:05 11/01/16 04:08 11/02/16 06:16 Thyroxine (T4) 6.7 MCG/DL Total Triiodothyronine 90 NG/DL Thyroid Stimulating Hormone 3rd Gen 0.707 uIU/ML Blood Urea Nitrogen 22 MG/DL 29 MG/DL Creatinine 0.76 MG/DL 0.81 MG/DL Random Glucose 326 MG/DL 351 MG/DL Total Protein 6.4 GM/DL Albumin 2.4 GM/DL Calcium Level 8.1 MG/DL 8.1 MG/DL Alkaline Phosphatase 110 U/L Aspartate Amino Transf (AST/SGOT) 24 U/L Alanine Aminotransferase (ALT/SGPT) 11 U/L Total Bilirubin 0.2 MG/DL Sodium Level 142 MEQ/L 144 MEQ/L Potassium Level 3.9 MEQ/L 4.0 MEQ/L Chloride Level 110 MEQ/L 112 MEQ/L Carbon Dioxide Level 22.5 MEQ/L 22.7 MEQ/L Anion Gap 10 MEQ/L 9 MEQ/L Estimat Glomerular Filtration Rate 75 ML/MIN 70 ML/MIN Phosphorus Level 2.8 MG/DL Magnesium Level 2.5 MG/DL Microbiology Date/Time Source Procedure Growth Status 11/01/16 16:20 Bronchial Washings Right Upper Lobe Fungal Smear Pending Received 11/01/16 16:20 Bronchial Washings Right Upper Lobe Fungal Culture Pending Received 11/01/16 16:20 Bronchial Washings Right Upper Lobe Acid Fast Stain Pending Received 11/01/16 16:20 Bronchial Washings Right Upper Lobe Mycobacterial Culture Pending Received IMAGING: Chest X-Ray 11/01/16 0600 Signed Impressions: Service Date/Time: October 03:56 - CONCLUSION: Cardiomegaly with bibasilar pulmonary infiltrates. Pulmonary vascular engorgement. Eric Levine Jr., MD Chest X-Ray 10/31/16 0600 Signed Impressions: Service Date/Time: Monday, October 31, 2016 02:38 - CONCLUSION: Limited study by motion artifact. Lines and tubes. Grossly clear lungs. Eric Levine Jr., MD Thyroid Ultrasound 10/31/16 0000 Signed Impressions: Service Date/Time: Monday, October 31, 2016 11:47 - CONCLUSION: Large complex mass right lobe of the thyroid. Minimally increased in size since Jacoby Torre MD FACR PHYSICAL EXAMINATION GENERAL: On the ventilator. No acute distress. NECK: Obese, fullness palpated at the right lateral neck. No induration. LUNGS: Decreased breath sounds on the left side. HEART: Regular rate and rhythm without audible murmurs or rubs or gallops. ABDOMEN: Obese, soft, diminished bowel sounds. No tenderness. EXTREMITIES: No clubbing or cyanosis or edema. SKIN: No rash. NEURO: Alert. Moves all extremities. PSYCHE: Unable to assess. IMPRESSION 1. Bilateral pneumonia with hilar cavitary mass. Sputum culture has no growth. The patient also has lung nodules and also a thyroid lesion and hence, potentially may have malignancy. 2. Acute respiratory failure. 3. UTI - E.coli. (S) to Aztreonam. 4. Low grade fever. RECOMMENDATIONS 1. Continue aztreonam. 2. Monitor the temperature. 3. Monitor the bronch culture. Francisco Zarate MD Nov 02, 2016 11:45
--- NOTE | 2016-11-02 12:11 | HHI.HCPN ---
Reason for visit a. To assist with evaluation and management of symptoms including: Respiratory distress, Debility. b. To assist medical decision maker(s) with: better understanding of current medical conditions; weighing benefits/burdens of medical treatment options; making medical treatment decisions. (Sydnee Morales) Subjective/Interval History Ms Dalton is a 70 years old female with a medical history of diabetes mellitus, dementia, thyroid disease, anxiety, depression and hyperlipemia, and reactive airway disease. Patient presented to the ED 10/28/16 via EMS after complaining of shortness of breath. Patient was intubated and placed on mechanical ventilation secondary to acute hypoxemic respiratory failure. Clinical course complicated by newly diagnosed normal pressure hydrocephalus/moderate ventriculomegaly, pulmonary nodules concerning for malignancy, severe sepsis, suspected aspiration pneumonia and thyroid mass. Palliative care consulted for further clarifications of goals of care given the above. Patient seen in ICU, remains intubated on mechanical ventilation sedated on propofol, not following commands. Current FIO2 35%. Patient underwent bronchoscopy 11/01/[address] Madison, no bronchial lesions seen, mucous plugging to right lung and tracheal bronchomalacia. Patient's afebrile, heart rate low 90s to low 100s, SBP low 100s to 140s. Laboratory results revealing WBC 11.3, hemoglobin 11.0, hematocrit 34.0, sodium 144, potassium 4.0, BUN/ creatinine 29/0.81. Telephone conversation with patient's guardian/title insurance sales representative from [facility], [place]. Medical update provided. Notified her of the change in code status to DNR in honor of signed community DNR on 2010 with permission from [place] legal department. Discussed patient's overall poor prognosis given acute hypoxemic respiratory failure, multiple ongoing comorbidities, newly diagnosed. Ventriculomegaly, pulmonary nodules and thyroid mass concerning for malignancy, severe sepsis and overall physical deconditioning. Goals of therapy at this time is to continue current aggressive management, allow time for medical improvement pending Judges decision on what the guardian is allowed to make medical decisions on. Case discussed with bedside RN. . (Sydnee Morales) Advance Directives Advance Directive Specifics Health Care Surrogate(s): Patient has a court appointed guardian, [facility] [place]. . (Sydnee Morales) Objective Vital Signs Date Time Temp Pulse Resp B/P (MAP) Pulse Ox O2 Delivery O2 Flow Rate FiO2 11/02/16 08:22 100 35 11/02/16 08:00 100.1 116 16 175/74 (107) 100 11/02/16 08:00 106 11/02/16 08:00 35 11/02/16 06:00 108 11/02/16 04:38 98 35 11/02/16 04:00 112 11/02/16 04:00 97.5 112 14 148/67 (94) 100 11/02/16 04:00 35 11/02/16 02:00 93 11/02/16 00:55 98 35 11/02/16 00:00 99.3 91 14 102/49 (66) 98 11/02/16 00:00 35 11/02/16 00:00 91 11/01/16 22:15 98 35 11/01/16 22:00 93 11/01/16 20:00 35 11/01/16 20:00 116 11/01/16 20:00 100.0 116 14 118/57 (77) 98 11/01/16 19:57 98 35 11/01/16 18:00 113 11/01/16 16:22 100 100 11/01/16 16:00 35 11/01/16 16:00 100.4 114 14 116/58 (77) 100 11/01/16 16:00 114 11/01/16 14:56 100 35 11/01/16 14:00 115 11/01/16 12:38 100 35 11/01/16 12:00 108 11/01/16 12:00 100.3 108 14 122/58 (79) 99 11/01/16 12:00 35 11/01/16 11:17 35 11/01/16 11:12 35 Intake & Output 11/02/16 11/02/16 07:00 19:00 Intake Total 1146 ml Output Total 550 ml Balance 596 ml Intake IV Total 700 ml Tube Feeding 446 ml Output Urine Total 550 ml # Bowel Movements 0 Physical Exam CONSTITUTIONAL/GENERAL: This is an elderly, ill looking patient, in no acute distress. TUBES/LINES/DRAINS:PIV, ETT, OGT, Jang catheter, SCDs SKIN: No jaundice, rashes, or lesions. Ecchymoses on upper extremities. No wounds seen anteriorly. Skin temperature appropriate. Not diaphoretic. HEAD: Atraumatic. Normocephalic. EYES: Pupils equal and round and reactive. No scleral icterus. No injection or drainage. Fundi not examined. ENT: Nose without bleeding or purulent drainage. Moist oral mucosa. NECK: Trachea midline. Supple, nontender. CARDIOVASCULAR: Regular rate and rhythm without murmurs, gallops, or rubs. No JVD. Peripheral pulses symmetric. RESPIRATORY/CHEST: Symmetric, unlabored respirations. Rhonchi to auscultation. Breath sounds equal bilaterally. GASTROINTESTINAL: Abdomen soft, round, large. No guarding. Unable to appreciate hepatomegaly as secondary to body habitus. Bowel sounds present. GENITOURINARY: Without palpable bladder distension. Jang catheter in place. MUSCULOSKELETAL: Extremities without clubbing, cyanosis. Edema to bilateral extremities. No mottling or clubbing. NEUROLOGICAL: Intubated and sedated. Not following commands. PSYCHIATRIC:Unable to assess, patient intubated and sedated. Appears calm. . (Sydnee Morales) Diagnostic Tests Laboratory Laboratory Tests Test 10/31/16 03:35 10/31/16 14:05 10/31/16 20:15 11/01/16 04:08 White Blood Count 12.7 TH/MM3 (4.0-11.0) 12.9 TH/MM3 (4.0-11.0) 11.0 TH/MM3 (4.0-11.0) Red Blood Count 3.90 MIL/MM3 (4.00-5.30) 4.09 MIL/MM3 (4.00-5.30) 4.18 MIL/MM3 (4.00-5.30) Hemoglobin 11.7 GM/DL (11.6-15.3) 11.9 GM/DL (11.6-15.3) 12.3 GM/DL (11.6-15.3) Hematocrit 34.9 % (35.0-46.0) 37.3 % (35.0-46.0) 37.1 % (35.0-46.0) Mean Corpuscular Volume 89.5 FL (80.0-100.0) 91.2 FL (80.0-100.0) 88.9 FL (80.0-100.0) Mean Corpuscular Hemoglobin 30.0 PG (27.0-34.0) 29.1 PG (27.0-34.0) 29.4 PG (27.0-34.0) Mean Corpuscular Hemoglobin Concent 33.6 % (32.0-36.0) 31.9 % (32.0-36.0) 33.0 % (32.0-36.0) Red Cell Distribution Width 14.6 % (11.6-17.2) 14.7 % (11.6-17.2) 14.5 % (11.6-17.2) Platelet Count 229 TH/MM3 (150-450) 245 TH/MM3 (150-450) 240 TH/MM3 (150-450) Mean Platelet Volume 8.9 FL (7.0-11.0) 8.6 FL (7.0-11.0) 8.7 FL (7.0-11.0) Neutrophils (%) (Auto) 63.3 % (16.0-70.0) 61.8 % (16.0-70.0) 64.0 % (16.0-70.0) Lymphocytes (%) (Auto) 22.8 % (9.0-44.0) 26.0 % (9.0-44.0) 23.6 % (9.0-44.0) Monocytes (%) (Auto) 9.6 % (0.0-8.0) 8.9 % (0.0-8.0) 8.1 % (0.0-8.0) Eosinophils (%) (Auto) 3.8 % (0.0-4.0) 3.0 % (0.0-4.0) 3.5 % (0.0-4.0) Basophils (%) (Auto) 0.5 % (0.0-2.0) 0.3 % (0.0-2.0) 0.8 % (0.0-2.0) Neutrophils # (Auto) 8.0 TH/MM3 (1.8-7.7) 7.9 TH/MM3 (1.8-7.7) 7.0 TH/MM3 (1.8-7.7) Lymphocytes # (Auto) 2.9 TH/MM3 (1.0-4.8) 3.3 TH/MM3 (1.0-4.8) 2.6 TH/MM3 (1.0-4.8) Monocytes # (Auto) 1.2 TH/MM3 (0-0.9) 1.1 TH/MM3 (0-0.9) 0.9 TH/MM3 (0-0.9) Eosinophils # (Auto) 0.5 TH/MM3 (0-0.4) 0.4 TH/MM3 (0-0.4) 0.4 TH/MM3 (0-0.4) Basophils # (Auto) 0.1 TH/MM3 (0-0.2) 0.0 TH/MM3 (0-0.2) 0.1 TH/MM3 (0-0.2) CBC Comment DIFF FINAL DIFF FINAL DIFF FINAL Differential Comment Blood Urea Nitrogen 18 MG/DL (7-18) 22 MG/DL (7-18) Creatinine 0.76 MG/DL (0.50-1.00) 0.76 MG/DL (0.50-1.00) Random Glucose 271 MG/DL (74-106) 326 MG/DL (74-106) Total Protein 6.1 GM/DL (6.4-8.2) 6.4 GM/DL (6.4-8.2) Calcium Level 7.3 MG/DL (8.5-10.1) 8.1 MG/DL (8.5-10.1) Sodium Level 141 MEQ/L (136-145) 142 MEQ/L (136-145) Potassium Level 4.1 MEQ/L (3.5-5.1) 3.9 MEQ/L (3.5-5.1) Chloride Level 109 MEQ/L (98-107) 110 MEQ/L (98-107) Carbon Dioxide Level 24.4 MEQ/L (21.0-32.0) 22.5 MEQ/L (21.0-32.0) Anion Gap 8 MEQ/L (5-15) 10 MEQ/L (5-15) Estimat Glomerular Filtration Rate 75 ML/MIN (>89) 75 ML/MIN (>89) Protein Corrected Calcium 7.8 MG/DL (8.5-10.1) Thyroxine (T4) 6.7 MCG/DL (4.8-13.9) Total Triiodothyronine 90 NG/DL (60-181) Thyroid Stimulating Hormone 3rd Gen 0.707 uIU/ML (0.358-3.740) Prothrombin Time 10.8 SEC (9.8-11.6) Prothromb Time International Ratio 1.0 RATIO Activated Partial Thromboplast Time 34.0 SEC (24.3-30.1) Albumin 2.4 GM/DL (3.4-5.0) Alkaline Phosphatase 110 U/L (45-117) Aspartate Amino Transf (AST/SGOT) 24 U/L (15-37) Alanine Aminotransferase (ALT/SGPT) 11 U/L (10-53) Total Bilirubin 0.2 MG/DL (0.2-1.0) Test 11/02/16 06:16 White Blood Count 11.3 TH/MM3 (4.0-11.0) Red Blood Count 3.78 MIL/MM3 (4.00-5.30) Hemoglobin 11.0 GM/DL (11.6-15.3) Hematocrit 34.0 % (35.0-46.0) Mean Corpuscular Volume 89.8 FL (80.0-100.0) Mean Corpuscular Hemoglobin 29.0 PG (27.0-34.0) Mean Corpuscular Hemoglobin Concent 32.3 % (32.0-36.0) Red Cell Distribution Width 14.5 % (11.6-17.2) Platelet Count 218 TH/MM3 (150-450) Mean Platelet Volume 8.8 FL (7.0-11.0) Blood Urea Nitrogen 29 MG/DL (7-18) Creatinine 0.81 MG/DL (0.50-1.00) Random Glucose 351 MG/DL (74-106) Calcium Level 8.1 MG/DL (8.5-10.1) Phosphorus Level 2.8 MG/DL (2.5-4.9) Magnesium Level 2.5 MG/DL (1.5-2.5) Sodium Level 144 MEQ/L (136-145) Potassium Level 4.0 MEQ/L (3.5-5.1) Chloride Level 112 MEQ/L (98-107) Carbon Dioxide Level 22.7 MEQ/L (21.0-32.0) Anion Gap 9 MEQ/L (5-15) Estimat Glomerular Filtration Rate 70 ML/MIN (>89) (Sydnee Morales) Result Diagram: 11/02/16 0616 11/02/16 0616 Microbiology Microbiology Date/Time Source Procedure Growth Status 11/01/16 16:20 Bronchial Washings Right Upper Lobe Fungal Smear Pending Received 11/01/16 16:20 Bronchial Washings Right Upper Lobe Fungal Culture Pending Received 11/01/16 16:20 Bronchial Washings Right Upper Lobe Acid Fast Stain Pending Received 11/01/16 16:20 Bronchial Washings Right Upper Lobe Mycobacterial Culture Pending Received Procedures 11/01/16 Bronchoscopy 10/28/16 Intubated and mechanically ventilated . (Sydnee Morales) Assessment and Plan Disease Oriented Problem List: (1) Acute respiratory failure requiring reintubation (2) Sepsis (3) Pulmonary nodules (4) Normal pressure hydrocephalus (5) Diabetes mellitus (6) Thyroid mass Symptom Scale: (1) Shortness of breath 0-10 Scale: Unable to quantify Comment: Intubated and mechanically ventilated. . (2) Debility 0-10 Scale: Unable to quantify Comment: Resident of a long-term facility, requiring assistance with ADLs. Progressive debility. Pertinent Non-Medical Issues Psychosocial: Patient is a resident at a [facility] operator care facility. As per prior medical records from 2007, patient has two sons who reside in the area. Per court appointed guardian, one son is and the other son who once served as patient`s DPOA was not fulfilling his duties and the court appointed a guardian for the patient. 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 Spiritual: Unable to obtain, patient is intubated on mechanical ventilation and sedated. Legal: Patient has a court appointed guardian. Ethical issues impacting care: Patient has a court appointed guardian.Patient has a signed DNR in 2010 by her son prior to court appointed guardian. . Important Contacts [place]- Court appointed guardian . Prognosis Ms Dalton is a 70 years old female with a medical history of diabetes mellitus, dementia, thyroid disease, anxiety, depression and hyperlipemia, and reactive airway disease. Patient presented to the ED 10/28/16 via EMS after complaining of shortness of breath. Patient was intubated and placed on mechanical ventilation secondary to acute hypoxemic respiratory failure. Clinical course complicated by newly diagnosed normal pressure hydrocephalus/moderate ventriculomegaly, pulmonary nodules concerning for malignancy, severe sepsis, suspected aspiration pneumonia and thyroid mass. Patient's prognosis is guarded. Patient at high risk for further complications, clinical decline and given the above. . Code Status: Full Code Plan * CODE STATUS: DNR -(Signed community DNR from 2010) Per our [place] legal department, palliative care was given permission to honor patients` signed DNR. * HEALTH CARE SURROGATE: Patient was determined incapacitated by court order on August 10, 2015. Court appointed guardian effective 08/10/15 -[facility]. Per court appointed guardian, patient had 2 adult sons, one is and one is living. At one point patient`s son was her DPOA but was not fulfilling his duties and the court appointed a guardian to represent patient. * GOALS OF CARE: 11/02/16 [place] from [facility]/guardian requesting to continue aggressive management at this time, allow time for medical improvement. Guardian reports that she is unable to make medical decisions at this time without court's approval -[facility]. Per our [place] legal department, palliative care was given permission to honor patients` signed DNR. * SYMPTOMS: ==Shortness of breath- Patient intubated on mechanical ventilation. Newly diagnosed lung lesions, concerning of malignancy. Pulmonology following. . ==Debility, progressive. Patient residing in long-term facility , requiring assistance with most ADLs. Likely to continue to worsen given acute illness. * Case discussed bedside RN. * Palliative care contact information has been provided to patient's guardian. * Palliative care will continue to follow-up for further clarification of goals of care patient's clinical course continue to evolve. . (Sydnee Morales) Code Status: No Code Plan Patient evaluated in dual visit with MIRA Finn. Discussion with guardian and patient examination witnessed. Goals clarified, pending meeting with [facility] legal, [facility] legal and wood gouger to determine scope of guardian root. Agree with above. (Alethea Mcfadden) Attestation To help prompt me to consider important information that might be impacting today's encounter and assessment, information from prior notes written by myself or my colleagues may have been "brought forward" into today's note. My signature on this note, however, is an attestation that I personally performed the exam, history, and/or decision-making noted today, and, unless otherwise indicated, the interactions with patient, family, and staff as well as the review of records all occurred today. I also attest that the listed assessment and stated plan reflect my best clinical judgment today based on the combination of historical information, prior notes, and today's exam/ interactions. When time spent is documented, it refers only to time spent today by the signer, or if indicated, combined time spent today by collaborating physician/nurse practitioner. (Alethea Mcfadden) Sydnee Morales Nov 02, 2016 12:03 pm Alethea Mcfadden Nov 02, 2016 1:30 pm
[2016-11-02] MEDS ORDERED: PILL SPLITTER OTHER PRN (13:45)
[2016-11-03] VITALS (24 sets, daily range): BP systolic 108–209; BP diastolic 51–84; PULSE 89–110; RESP 14–29; TEMP 99.3–99.7; O2SAT 94–100
[2016-11-03] MEDS: PROPOFOL 1000 MG/100 ML INJ 100 ML IV PRN ×4 (00:01→17:58)
[2016-11-03] MEDS: HEPARIN SODIUM - SQ 10,000 UNITS/ML VIAL SQ SCH ×3 (00:02→16:01)
[2016-11-03] MEDS: AZTREONAM INJ 2,000 MG in SODIUM CHLORIDE 0.9% INJ 100 ML IV SCH ×3 (00:03→16:00)
[2016-11-03] MEDS: CHLORHEXIDINE GLUCONATE 2 % 1 PACK (2 CLOTHS) TOP SCH ×2 (03:51→21:17)
[2016-11-03] MEDS: RESP: ALBUTEROL 2.5 MG/IPRATROPIUM 0.5 MG NEB (SCH) NEB ×5 (04:04→23:57)
[2016-11-03 05:19] LABS: HEMATOCRIT 35.7 % (35.0-46.0); MEAN CELL VOLUME 90.4 FL (80.0-100.0); MEAN CORPUSCULAR HEMOGLOBIN 28.8 PG (27.0-34.0); MEAN CORPUSCULAR HGB CONC 31.8 % (32.0-36.0); PLATELET COUNT 257 TH/MM3 (150-450); RED BLOOD COUNT 3.95 MIL/MM3 (4.00-5.30); RED CELL DISTRIBUTION WIDTH 14.6 % (11.6-17.2); REVIEW FLAG FINAL; WHITE BLOOD COUNT 15.2 TH/MM3 (4.0-11.0)
[2016-11-03] MEDS: ARTIFICIAL TEARS OPTH SOLN 15 ML BTL EACH EYE SCH ×3 (05:20→21:17)
[2016-11-03] MEDS: INSULIN ASPART SUPPLEMENTAL SCALE SQ SCH ×4 (05:20→17:57)
[2016-11-03 05:40] LABS: BICARBONATE 24.7 MEQ/L (21.0-32.0); POTASSIUM 3.9 MEQ/L (3.5-5.1)
--- NOTE | 2016-11-03 06:21 | RADRPT ---
EXAM DATE/TIME: 11/03/2016 04:44 [facility] COMPARISON: CHEST SINGLE AP, November 01, 2016, 3:56. INDICATIONS : Shortness of breath, possible pulmonary disease. MEDICAL HISTORY : Osteoarthritis. Diabetes mellitus type II. Hypertension. SURGICAL HISTORY : None. ENCOUNTER: Subsequent ACUITY: 1 week PAIN SCORE: Non-responsive. LOCATION: Bilateral chest FINDINGS: ET tube tip 1.8 cm above the radhika. Consolidation in the right hilar and left lower lung with loss of delineation left hemidiaphragm similar to prior. Gastric tube traverses the [id number]. Chron ic changes in right shoulder. CONCLUSION: 1. ET tube 1.8 cm above the radhika and needs to be withdrawn 1 cm. 2. Persistent, stable, infiltrates right hilar and left lower lung. Eric Weaver MD on November 03, 2016 at 6:18 Board Certified Radiologist. This report was verified electronically.
[2016-11-03] MEDS: INSULIN DETEMIR 100 UNITS/ML VIAL SQ SCH ×2 (08:00→21:16)
[2016-11-03] MEDS: CHLORHEXIDINE 0.12% (ORAL KIT) 15 ML CUP MT SCH ×2 (08:49→21:15)
[2016-11-03] MEDS: MUPIROCIN 2% OINT 1 APPLIC/GM SYR EACH NARE SCH ×2 (08:49→21:16)
[2016-11-03] MEDS: METOPROLOL TARTRATE 25 MG TAB PO SCH ×2 (08:50→21:16)
[2016-11-03] MEDS: SODIUM CHLORIDE 0.9% FLUSH 10 ML FLUSH IV FLUSH SCH ×2 (08:50→21:16)
[2016-11-03] MEDS: FAMOTIDINE 20 MG TAB PO SCH ×2 (08:50→21:39)
--- NOTE | 2016-11-03 11:04 | HHI.CCPN ---
Subjective Remarks/Hospital Course HPI 70-year-old long term resident with a medical history significant for dementia, diabetes mellitus, hyperlipidemia, reactive airway disease who was found to have altered mental status at the long term for which EMS was called. Patient was noted to have O2 sats in the 70s. She was very apneic with her head slumped down. Paramedics report of having to hold her head up to have her breathe with the nebulizer treatment in place. Patient was given Solu- Medrol 125 mg IV and 4 nebulizer treatments prior to arrival in the ER for documentation. On arrival in the ER patient was extremely lethargic however was reportedly able to answer some questions. Patient was felt not to be able to protect her airway as well as very hypoxic and hence was intubated by ER physician and placed on mechanical ventilation. Chest x-ray in the ER showed bilateral infiltrates and possible cavitary lesion. She was accepted for admission by critical care medicine service. CT chest was ordered by ER physician. When I evaluated the patient in the ER she was sedated with propofol , orally intubated on mechanical ventilation. History was obtained by reviewing records and discussion with ER physician. 10/29 Patient is sedated with Diprivan and intubated. Afebrile. 10/30 Patient remains sedated and intubated. T:99.7 last night. 10/31: Intubated sedated. CT reviewed and discussed with Dr. Madison. Will consider Bronch. Also check thyroid US and possible biopsy. Check thyroid studies. Also consult palliative care as patient has underlying dementia with NPH and possible malignancy. 11/01: Tmax 100.3. Plan for bronchoscopy at 3:00 today. Noted thyroid masses chronic/since 2011. Tolerating tube feeding. Positive BM. 11/02: Tmax 100.1. Status post bronchoscopy yesterday with removal of mucous plugging. Tolerating tube feeds. Positive BM. Weaning propofol sedation today. Subjective 11/03: Tmax 100.6. Noted elevated leukocytosis. Weaning sedation. Positive BM. Tolerate tube feeding. Objective Vital Signs Date Time Temp Pulse Resp B/P (MAP) Pulse Ox O2 Delivery O2 Flow Rate FiO2 11/03/16 09:03 102 14 132/62 (85) 100 11/03/16 08:00 35 11/03/16 04:00 99.7 Intake and Output 11/03/16 11/03/16 11/04/16 08:00 16:00 00:00 Intake Total 750 ml 100 ml Balance 750 ml 100 ml Result Diagram: 11/03/16 0422 11/03/16 0422 Other Results Microbiology Date/Time Source Procedure Growth Status 10/28/16 16:15 Blood Peripheral Aerobic Blood Culture - Final NO GROWTH IN 5 DAYS Complete 10/28/16 16:15 Blood Peripheral Anaerobic Blood Culture - Final NO GROWTH IN 5 DAYS Complete 11/01/16 16:20 Bronchial Washings Right Upper Lobe Gram Stain - Final Resulted 11/01/16 16:20 Bronchial Washings Right Upper Lobe Bronchial Culture Pending Resulted 10/28/16 17:00 Urine Catheterized Urine Streptococcus pneumoniae Antigen (M - Final PRESUMPTIVE NEGATIVE FOR STREPTOCOCCU... Complete 10/28/16 17:00 Other - Final Complete Imaging Last Impressions Chest X-Ray 11/03/16 0600 Signed Impressions: Service Date/Time: Thursday, November 03, 2016 04:44 - CONCLUSION: 1. ET tube 1.8 cm above the radhika and needs to be withdrawn 1 cm. 2. Persistent, stable, infiltrates right hilar and left lower lung. Eric Weaver MD Thyroid Ultrasound 10/31/16 0000 Signed Impressions: Service Date/Time: Monday, October 31, 2016 11:47 - CONCLUSION: Large complex mass right lobe of the thyroid. Minimally increased in size since Jacoby Torre MD FACR Brain MRI 10/30/16 0000 Signed Impressions: Service Date/Time: Sunday, October 30, 2016 11:38 - CONCLUSION: 1. Ventriculomegaly/hydrocephalus, differential includes normal pressure hydrocephalus and aqueductal stenosis. 2. Extensive nonspecific white matter changes. Edwin Jacome MD Abdomen X-Ray 10/29/16 0000 Signed Impressions: Service Date/Time: Saturday, October 29, 2016 15:32 - CONCLUSION: Negative for radiopaque foreign bodies. Jacoby Torre MD FACR Chest CT 10/28/16 1814 Signed Impressions: Service Date/Time: Friday, October 28, 2016 18:28 - CONCLUSION: 1. Abnormality on chest radiograph corresponds to a 3.4 x 3.5 cm central right hilar mass/adenopathy with associated postobstructive airspace consolidation in the inferior right upper lobe. There are at least 2 additional pulmonary nodules measuring 13 x 8 mm in the anterior right middle lobe and 8 x 8 mm in the anterior right upper lobe near the apex. 2. 3.9 x 4.3 cm heterogeneous nodule in the right thyroid gland. No significant regional cervical adenopathy. 3. Patchy bilateral lower lobe air space consolidation and diffuse ground glass opacities. Differential considerations include ARDS versus infection versus aspiration. 1. Tyler Selby MD Head CT 10/28/16 0000 Signed Impressions: Service Date/Time: Friday, October 28, 2016 20:44 - CONCLUSION: 1. No bleed or evidence of acute infarction. 2. Atrophy and chronic white matter changes. 3. Moderate ventriculomegaly, beyond that expected for the degree of atrophy. Normal pressure hydrocephalus would be in the differential. Keshav Burks MD Objective Remarks GENERAL: 71-year-old female, critically ill currently orotracheally intubated SKIN: Warm and dry. No rash HEAD: Atraumatic. Normocephalic. EYES: Pupils equal and round about 3 mm bilaterally and reactive. No scleral icterus. No injection or drainage. ENT: No nasal bleeding or discharge. Mucous membranes pink and moist. NECK: Trachea midline. No JVD. Right-sided thyromegaly/palpable mass noted CARDIOVASCULAR: Tachycardic, RR. S1, S2 no S4. Without murmur RESPIRATORY: Diminished breath sounds right upper lobe. Coarse crackles appreciated bilaterally. No wheeze GASTROINTESTINAL: Abdomen soft, non-tender, nondistended. Hepatic and splenic margins not palpable. MUSCULOSKELETAL: Extremities bilateral trace nonpitting lower extremity edema. No obvious deformities. NEUROLOGICAL: On sedation vacation following commands using bilateral upper extremities yesterday A/P Assessment and Plan Plan: Neuro/Psych: Depression/anxiety Toxic metabolic encephalopathy Ventriculomegaly History of dementia On Diprivan infusion at 35 mcg/kg per minute for sedation. Goal of RA SS -[address] brain: Moderate ventriculomegaly, beyond that expected for the degree of atrophy. MRI confirms. Neurosurgery is following- Dr. Hernandez No acute intervention Currently holding home medications clonazepam 0.5 mg twice a day and quetiapine 25 mg at night CV: Hypertension Dyslipidemia Lopressor 25mg [id number] HR and BP keep MAP>65mmHg Home medication for hypertension include amlodipine 10 mg by mouth daily and carvedilol 25 mg by mouth twice a day As needed hydralazine for hypertension Currently holding atorvastatin 40 mg by mouth daily for dyslipidemia. Resume when clinically indicated Pulm Acute hypoxemic respiratory failure possibly secondary to post obstructive pneumonia [facility] 14/02/15/34 Ventilator bundle Albuterol/hypertensive aerosols every 4 hours with albuterol aerosols every 2 hours. Dyspnea. Acid tube minutes on PSV trial today CT chest reviewed revealed 3.4 x 2.5 right hilar mass with post discharge pneumonia in the right upper lobe. Right middle lobe mass. .Pulm is following- Dr. Madison, to bronch with BAL 11/01. Results pending Sputum culture negative to date Renal/: Monitor renal function, I/O's, electrolytes replacement per protocol. GI/liver: Mild protein calorie malnutrition Continue with Glucerna 1.5 at 40 cc an hour On famotidine 20mg BID for GI prophylaxis ID: Escherichia coli UTI Postobstructive pneumonia Continue with abx ( Aztreonam, Levaquin, Flagyl, Zyvox) monitor for signs of infections ( Fever, WBC). Follow up on cultures and bronchoscopy 11/01 Strep pneumonia urinary Ag negative. ID is following- Dr. Zarate Urine cx 10/28: E COLI Heme: Leukocytosis Normocytic anemia Monitor CBC. Patient has hilar mass with pulmonary nodules, also thyroid mass. Given underlying dementia and possible NPH I will hold off any further diagnostic studies and to a meeting with family can be arranged. Palliative care consulted Endocrine: Diabetes mellitus Currently on insulin detemir 18 units twice a day. 24 units sliding scale past 24 hours Right thyroid mass 6.8 cm/chronic SSI for glycemic control(medium scale) Patient is on insulin glargine at home Prophylaxis: Pepcid via OG tube, SCDs/subcutaneous heparin CCT 30 mins Niraj Malloy MD Nov 03, 2016 11:04
--- NOTE | 2016-11-03 12:54 | HHI.IDPN ---
Note Infectious Disease Note ID COVERAGE Notes reviewed D/W RN Admitted with respiratory distress Intubated Sedated on the vent Febrile last night BP ok WBC up to 15K Patient on the vent. Has a lot of oral secretions. Awake and responsive. Low grade fever. Has a large R thyroid CT with a large R central hilar mass/adenopathy and post obstructive infiltrates PAST HISTORY 1. Dementia. 2. Diabetes mellitus. 3. Hypertension. 4. Thyroid disease. 5. Anxiety, depression. 6. Arthritis. ALLERGIES AMOXICILLIN, PROPOXYPHENE. Has received Cephalosporins in the past (Ancef and Rocephin) ANTIBIOTICS: Azactam. OBJECTIVE: Vital Signs Date Time Temp Pulse Resp B/P (MAP) Pulse Ox O2 Delivery O2 Flow Rate FiO2 11/03/16 11:00 97 11/03/16 10:01 101 11/03/16 10:00 101 11/03/16 09:03 102 14 132/62 (85) 100 11/03/16 09:01 104 14 209/84 (125) 100 11/03/16 08:00 110 11/03/16 08:00 98 19 145/67 (93) 100 11/03/16 08:00 35 11/03/16 07:13 99 35 11/03/16 06:00 103 11/03/16 04:06 100 35 11/03/16 04:00 35 11/03/16 04:00 99.7 105 14 158/70 (99) 98 11/03/16 04:00 105 11/03/16 02:00 106 11/03/16 01:18 94 35 11/03/16 00:00 98 11/03/16 00:00 35 11/03/16 00:00 99.7 98 14 148/65 (92) 95 11/02/16 22:00 112 11/02/16 21:11 99 35 11/02/16 20:00 100.1 121 14 141/62 (88) 97 11/02/16 20:00 35 11/02/16 20:00 121 11/02/16 18:00 119 11/02/16 16:00 100.3 120 14 138/62 (87) 100 11/02/16 16:00 118 11/02/16 16:00 35 11/02/16 14:00 109 Vital Signs Date Time Temp Pulse Resp B/P (MAP) Pulse Ox O2 Delivery O2 Flow Rate FiO2 11/02/16 11:30 100 35 11/02/16 10:00 109 11/02/16 08:22 100 35 11/02/16 08:00 100.1 116 16 175/74 (107) 100 11/02/16 08:00 106 11/02/16 08:00 35 11/02/16 06:00 108 11/02/16 04:38 98 35 11/02/16 04:00 112 11/02/16 04:00 97.5 112 14 148/67 (94) 100 11/02/16 04:00 35 11/02/16 02:00 93 11/02/16 00:55 98 35 11/02/16 00:00 99.3 91 14 102/49 (66) 98 11/02/16 00:00 35 11/02/16 00:00 91 11/01/16 22:15 98 35 11/01/16 22:00 93 11/01/16 20:00 35 11/01/16 20:00 116 11/01/16 20:00 100.0 116 14 118/57 (77) 98 11/01/16 19:57 98 35 11/01/16 18:00 113 11/01/16 16:22 100 100 11/01/16 16:00 35 11/01/16 16:00 100.4 114 14 116/58 (77) 100 11/01/16 16:00 114 11/01/16 14:56 100 35 11/01/16 14:00 115 11/01/16 12:38 100 35 11/01/16 12:00 108 11/01/16 12:00 100.3 108 14 122/58 (79) 99 11/01/16 12:00 35 Laboratory Tests Test 11/02/16 06:16 11/03/16 04:22 White Blood Count 11.3 TH/MM3 15.2 TH/MM3 Red Blood Count 3.78 MIL/MM3 3.95 MIL/MM3 Hemoglobin 11.0 GM/DL 11.4 GM/DL Hematocrit 34.0 % 35.7 % Mean Corpuscular Volume 89.8 FL 90.4 FL Mean Corpuscular Hemoglobin 29.0 PG 28.8 PG Mean Corpuscular Hemoglobin Concent 32.3 % 31.8 % Red Cell Distribution Width 14.5 % 14.6 % Platelet Count 218 TH/MM3 257 TH/MM3 Mean Platelet Volume 8.8 FL 8.6 FL Laboratory Tests Test 11/02/16 06:16 11/03/16 04:22 Blood Urea Nitrogen 29 MG/DL 23 MG/DL Creatinine 0.81 MG/DL 0.62 MG/DL Random Glucose 351 MG/DL 268 MG/DL Calcium Level 8.1 MG/DL 8.4 MG/DL Phosphorus Level 2.8 MG/DL Magnesium Level 2.5 MG/DL Sodium Level 144 MEQ/L 145 MEQ/L Potassium Level 4.0 MEQ/L 3.9 MEQ/L Chloride Level 112 MEQ/L 113 MEQ/L Carbon Dioxide Level 22.7 MEQ/L 24.7 MEQ/L Anion Gap 9 MEQ/L 7 MEQ/L Estimat Glomerular Filtration Rate 70 ML/MIN 95 ML/MIN Microbiology Date/Time Source Procedure Growth Status 11/01/16 16:20 Bronchial Washings Right Upper Lobe Gram Stain - Final Resulted 11/01/16 16:20 Bronchial Washings Right Upper Lobe Bronchial Culture Pending Resulted 11/01/16 16:20 Bronchial Washings Right Upper Lobe Fungal Smear Pending Received 11/01/16 16:20 Bronchial Washings Right Upper Lobe Fungal Culture Pending Received 11/01/16 16:20 Bronchial Washings Right Upper Lobe Acid Fast Stain - Final NO ACID FAST BACILLI SEEN Resulted 11/01/16 16:20 Bronchial Washings Right Upper Lobe Mycobacterial Culture Pending Resulted IMAGING: Chest X-Ray 11/03/16599 Signed Impressions: Service Date/Time: Thursday, November 03, 2016 04:44 - CONCLUSION: 1. ET tube 1.8 cm above the radhika and needs to be withdrawn 1 cm. 2. Persistent, stable, infiltrates right hilar and left lower lung. Eric Weaver MD Chest X-Ray 11/01/16599 Signed Impressions: Service Date/Time: October 03:56 - CONCLUSION: Cardiomegaly with bibasilar pulmonary infiltrates. Pulmonary vascular engorgement. Eric Levine Jr., MD Chest X-Ray 10/31/16599 Signed Impressions: Service Date/Time: Monday, October 31, 2016 02:38 - CONCLUSION: Limited study by motion artifact. Lines and tubes. Grossly clear lungs. Eric Levine Jr., MD Thyroid Ultrasound 10/31/16 0000 Signed Impressions: Service Date/Time: Monday, October 31, 2016 11:47 - CONCLUSION: Large complex mass right lobe of the thyroid. Minimally increased in size since Jacoby Torre MD FACR PHYSICAL EXAMINATION GENERAL: Sedated on the vent, not in acute distress. SKIN: Warm and dry, no generalized rash HEENT: [place] conjunctiva, no icterus, no nasal drainage, ET in mouth NECK: Obese, fullness palpated at the right lateral neck. No induration. LUNGS: Decreased breath sounds at the bases HEART: Regular rate and rhythm without audible murmurs or rubs or gallops. ABDOMEN: Obese, soft, diminished bowel sounds. No reaction to palpation. EXTREMITIES: No clubbing or cyanosis or edema. NEURO: Sedated PSYCHE: Unable to assess. LINE: PIV with no evidence of infection : Jang in place, urine looks clear IMPRESSION Bilateral PNA, with R hilar mass and postobstructive PNA Respiratory failure Large R thyroid gland UTI with E coli Leukocytosis, worsening Fevers, ?new sepsis RECOMMENDATIONS Continue aztreonam. Add Flagyl Add Diflucan Repeat UA and C/S Check stool for C diff - having diarrhea Lactinex One dose of Vanco IV Follow new C/S and adjust Abx Monitor temps Follow CBC Monitor progress D/W Dr Malloy ([facility]) D/W Britt Dugan MD Nov 03, 2016 12:54
[2016-11-03] MEDS ORDERED: VANCOMYCIN INJ 1,000 MG in SODIUM CHLOR 0.9% 250 ML INJ 250 ML IV ONE (14:00)
[2016-11-03] MEDS: FLUCONAZOLE 100 MG TAB PO SCH (14:15)
[2016-11-03] MEDS: metroNIDAZOLE 500 MG TAB PO SCH ×2 (14:15→21:16)
[2016-11-03 16:11] LABS: BLOOD, URINE NEG (NEG); COMMENT (UR) CATH-CULT NOT IND; CULTURE IF INDICATED CATH CULTURE NOT IND; GLUCOSE,URINE 1000 mg/dL (NEG); KETONE, URINE NEG (NEG); NITRITE,URINE NEG (NEG); URINE COLOR LIGHT-YELLOW (YELLW/STRAW)
[2016-11-03 17:17] LABS: C. DIFF EPI 027 PRESUMPTIVE NEGATIVE (NEGATIVE)
[2016-11-03] MEDS: LACTOBACILLUS ACIDOPHILUS TAB PO SCH (17:57)
[2016-11-04] VITALS (17 sets, daily range): BP systolic 108–211; BP diastolic 51–92; PULSE 85–109; RESP 14–26; TEMP 98–100.3; O2SAT 92–100
[2016-11-04] MEDS: HEPARIN SODIUM - SQ 10,000 UNITS/ML VIAL SQ SCH ×4 (00:11→23:19)
[2016-11-04] MEDS: AZTREONAM INJ 2,000 MG in SODIUM CHLORIDE 0.9% INJ 100 ML IV SCH ×4 (00:12→23:19)
[2016-11-04] MEDS: RESP: ALBUTEROL 2.5 MG/IPRATROPIUM 0.5 MG NEB (SCH) NEB ×5 (03:12→20:00)
[2016-11-04] MEDS: INSULIN ASPART SUPPLEMENTAL SCALE SQ SCH ×5 (03:56→23:28)
[2016-11-04] MEDS: ARTIFICIAL TEARS OPTH SOLN 15 ML BTL EACH EYE SCH ×3 (03:56→20:49)
[2016-11-04] MEDS: PROPOFOL 1000 MG/100 ML INJ 100 ML IV PRN ×4 (03:56→18:50)
[2016-11-04] MEDS: metroNIDAZOLE 500 MG TAB PO SCH ×3 (04:01→20:49)
[2016-11-04] MEDS: CHLORHEXIDINE GLUCONATE 2 % 1 PACK (2 CLOTHS) TOP SCH (04:11)
[2016-11-04 04:43] LABS: AUTOMATED NEUTROPHIL # 6.3 TH/MM3 (1.8-7.7); BASOPHIL # 0.1 TH/MM3 (0-0.2); BASOPHIL % 0.9 % (0.0-2.0); EOSINOPHIL # 0.8 TH/MM3 (0-0.4); EOSINOPHIL % 6.6 % (0.0-4.0); HEMATOCRIT 33.8 % (35.0-46.0); HEMO FLAGS DIFF FINAL; LYMPH % 29.6 % (9.0-44.0); LYMPHOCYTE # 3.5 TH/MM3 (1.0-4.8); MEAN CELL VOLUME 89.7 FL (80.0-100.0); MEAN CORPUSCULAR HEMOGLOBIN 29.2 PG (27.0-34.0); MEAN CORPUSCULAR HGB CONC 32.6 % (32.0-36.0); MONO % 10.3 % (0.0-8.0); NEUT % 52.6 % (16.0-70.0); PLATELET COUNT 258 TH/MM3 (150-450); RED BLOOD COUNT 3.77 MIL/MM3 (4.00-5.30); RED CELL DISTRIBUTION WIDTH 14.6 % (11.6-17.2); WHITE BLOOD COUNT 11.9 TH/MM3 (4.0-11.0)
[2016-11-04 04:56] LABS: ALKALINE PHOSPHATASE 87 U/L (45-117); ALT (GPT) 28 U/L (10-53); ANION GAP 8 MEQ/L (5-15); AST (GOT) 35 U/L (15-37); BICARBONATE 24.1 MEQ/L (21.0-32.0); BLOOD UREA NITROGEN 25 MG/DL (7-18); CHLORIDE 114 MEQ/L (98-107); GLOMERULAR FILTRATION RATE 91 ML/MIN (>89); POTASSIUM 3.7 MEQ/L (3.5-5.1); SODIUM (NA) 146 MEQ/L (136-145); TOTAL BILIRUBIN ADULT 0.2 MG/DL (0.2-1.0)
[2016-11-04] MEDS: CHLORHEXIDINE 0.12% (ORAL KIT) 15 ML CUP MT SCH ×2 (08:00→20:47)
[2016-11-04] MEDS: FAMOTIDINE 20 MG TAB PO SCH ×2 (08:01→20:48)
[2016-11-04] MEDS: FLUCONAZOLE 100 MG TAB PO SCH (08:01)
[2016-11-04] MEDS: MUPIROCIN 2% OINT 1 APPLIC/GM SYR EACH NARE SCH ×2 (08:01→20:47)
[2016-11-04] MEDS: SODIUM CHLORIDE 0.9% FLUSH 10 ML FLUSH IV FLUSH SCH ×2 (08:02→20:48)
[2016-11-04] MEDS: METOPROLOL TARTRATE 25 MG TAB PO SCH ×3 (08:02→20:49)
[2016-11-04] MEDS: LACTOBACILLUS ACIDOPHILUS TAB PO SCH ×3 (08:36→17:26)
[2016-11-04] MEDS: INSULIN DETEMIR 100 UNITS/ML VIAL SQ SCH ×2 (08:37→20:47)
[2016-11-04] MEDS: hydrALAZINE HCL 20 MG/ML VIAL IV PUSH PRN (08:38)
--- NOTE | 2016-11-04 09:50 | HHI.CCPN ---
Subjective Remarks/Hospital Course HPI 70-year-old correction resident with a medical history significant for dementia, diabetes mellitus, hyperlipidemia, reactive airway disease who was found to have altered mental status at the correction for which EMS was called. Patient was noted to have O2 sats in the 70s. She was very apneic with her head slumped down. Paramedics report of having to hold her head up to have her breathe with the nebulizer treatment in place. Patient was given Solu- Medrol 125 mg IV and 4 nebulizer treatments prior to arrival in the ER for documentation. On arrival in the ER patient was extremely lethargic however was reportedly able to answer some questions. Patient was felt not to be able to protect her airway as well as very hypoxic and hence was intubated by ER physician and placed on mechanical ventilation. Chest x-ray in the ER showed bilateral infiltrates and possible cavitary lesion. She was accepted for admission by critical care medicine service. CT chest was ordered by ER physician. When I evaluated the patient in the ER she was sedated with propofol , orally intubated on mechanical ventilation. History was obtained by reviewing records and discussion with ER physician. 10/29 Patient is sedated with Diprivan and intubated. Afebrile. 10/30 Patient remains sedated and intubated. T:99.7 last night. 10/31: Intubated sedated. CT reviewed and discussed with Dr. Madison. Will consider Bronch. Also check thyroid US and possible biopsy. Check thyroid studies. Also consult palliative care as patient has underlying dementia with NPH and possible malignancy. 11/01: Tmax 100.3. Plan for bronchoscopy at 3:00 today. Noted thyroid masses chronic/since 2011. Tolerating tube feeding. Positive BM. 11/02: Tmax 100.1. Status post bronchoscopy yesterday with removal of mucous plugging. Tolerating tube feeds. Positive BM. Weaning propofol sedation today. 11/03: Tmax 100.6. Noted elevated leukocytosis. Weaning sedation. Positive BM. Tolerate tube feeding. Subjective 11/04: Afebrile. UA negative. C. difficile pending. 4 bowel movement overnight. Tolerating tube feeding. No new issues. Objective Vital Signs Date Time Temp Pulse Resp B/P (MAP) Pulse Ox O2 Delivery O2 Flow Rate FiO2 11/04/16 08:08 100 35 11/04/16 06:00 104 11/04/16 04:00 98.3 14 169/69 (102) Intake and Output 11/04/16 11/04/16 11/05/16 08:00 16:00 00:00 Intake Total 799 ml Balance 799 ml Result Diagram: 11/04/16 0355 11/04/16 0355 Other Results Microbiology Date/Time Source Procedure Growth Status 10/28/16 16:15 Blood Peripheral Aerobic Blood Culture - Final NO GROWTH IN 5 DAYS Complete 10/28/16 16:15 Blood Peripheral Anaerobic Blood Culture - Final NO GROWTH IN 5 DAYS Complete 11/01/16 16:20 Bronchial Washings Right Upper Lobe Gram Stain - Final Resulted 11/01/16 16:20 Bronchial Washings Right Upper Lobe Bronchial Culture - Preliminary IMMATURE GROWTH - REINCUBATE Resulted 10/28/16 17:00 Urine Catheterized Urine Streptococcus pneumoniae Antigen (M - Final PRESUMPTIVE NEGATIVE FOR STREPTOCOCCU... Complete 10/28/16 17:00 Other - Final Complete Imaging Last Impressions Chest X-Ray 11/03/16 0600 Signed Impressions: Service Date/Time: Thursday, November 03, 2016 04:44 - CONCLUSION: 1. ET tube 1.8 cm above the radhika and needs to be withdrawn 1 cm. 2. Persistent, stable, infiltrates right hilar and left lower lung. Eric Weaver MD Thyroid Ultrasound 10/31/16 0000 Signed Impressions: Service Date/Time: Monday, October 31, 2016 11:47 - CONCLUSION: Large complex mass right lobe of the thyroid. Minimally increased in size since Jacoby Torre MD FACR Brain MRI 10/30/16 0000 Signed Impressions: Service Date/Time: Sunday, October 30, 2016 11:38 - CONCLUSION: 1. Ventriculomegaly/hydrocephalus, differential includes normal pressure hydrocephalus and aqueductal stenosis. 2. Extensive nonspecific white matter changes. Edwin Jacome MD Abdomen X-Ray 10/29/16 0000 Signed Impressions: Service Date/Time: Saturday, October 29, 2016 15:32 - CONCLUSION: Negative for radiopaque foreign bodies. Jacoby Torre MD FACR Chest CT 10/28/16 1814 Signed Impressions: Service Date/Time: Friday, October 28, 2016 18:28 - CONCLUSION: 1. Abnormality on chest radiograph corresponds to a 3.4 x 3.5 cm central right hilar mass/adenopathy with associated postobstructive airspace consolidation in the inferior right upper lobe. There are at least 2 additional pulmonary nodules measuring 13 x 8 mm in the anterior right middle lobe and 8 x 8 mm in the anterior right upper lobe near the apex. 2. 3.9 x 4.3 cm heterogeneous nodule in the right thyroid gland. No significant regional cervical adenopathy. 3. Patchy bilateral lower lobe air space consolidation and diffuse ground glass opacities. Differential considerations include ARDS versus infection versus aspiration. 1. Tyler Selby MD Head CT 10/28/16 0000 Signed Impressions: Service Date/Time: Friday, October 28, 2016 20:44 - CONCLUSION: 1. No bleed or evidence of acute infarction. 2. Atrophy and chronic white matter changes. 3. Moderate ventriculomegaly, beyond that expected for the degree of atrophy. Normal pressure hydrocephalus would be in the differential. Keshav Burks MD Objective Remarks GENERAL: 71-year-old female, critically ill currently orotracheally intubated SKIN: Warm and dry. No rash HEAD: Atraumatic. Normocephalic. EYES: Pupils equal and round about 3 mm bilaterally and reactive. No scleral icterus. No injection or drainage. ENT: No nasal bleeding or discharge. Mucous membranes pink and moist. NECK: Trachea midline. No JVD. Right-sided thyromegaly/palpable mass noted CARDIOVASCULAR: Tachycardic, RR. S1, S2 no S4. Without murmur RESPIRATORY: Diminished breath sounds right upper lobe. Coarse crackles appreciated bilaterally. No wheeze GASTROINTESTINAL: Abdomen soft, non-tender, nondistended. Hepatic and splenic margins not palpable. MUSCULOSKELETAL: Extremities bilateral trace nonpitting lower extremity edema. No obvious deformities. NEUROLOGICAL: On sedation vacation following commands using bilateral upper extremities yesterday A/P Assessment and Plan Plan: Neuro/Psych: Depression/anxiety Toxic metabolic encephalopathy Ventriculomegaly History of dementia On Diprivan infusion at 35 mcg/kg per minute for sedation. Goal of RA SS -[address] brain: Moderate ventriculomegaly, beyond that expected for the degree of atrophy. MRI confirms. Neurosurgery is following- Dr. Hernandez No acute intervention Currently holding home medications clonazepam 0.5 mg twice a day and quetiapine 25 mg at night CV: Hypertension Dyslipidemia Lopressor 25mg Q8-Monitor HR and BP keep MAP>65mmHg Adding amlodipine 5 mg daily Home medication for hypertension include amlodipine 10 mg by mouth daily and carvedilol 25 mg by mouth twice a day As needed hydralazine and labetalol and Nitropaste for hypertension Currently holding atorvastatin 40 mg by mouth daily for dyslipidemia. Resume when clinically indicated Pulm Acute hypoxemic respiratory failure possibly secondary to post obstructive pneumonia [facility] /02/15/34 Ventilator bundle Albuterol/hypertensive aerosols every 4 hours with albuterol aerosols every 2 hours. Dyspnea. Acid tube minutes on PSV trial today CT chest reviewed revealed 3.4 x 2.5 right hilar mass with post discharge pneumonia in the right upper lobe. Right middle lobe mass. .Pulm is following- Dr. Madison, to bronch with BAL 11/01. Results no growth to date Sputum culture negative to date Renal/: Hypernatremia Monitor renal function, I/O's, electrolytes replacement per protocol. Adding free water 200 cc every 6 hours tube feeds GI/liver: Mild protein calorie malnutrition Continue with Glucerna 1.5 at 40 cc an hour On famotidine 20mg BID for GI prophylaxis ID: Escherichia coli UTI Postobstructive pneumonia Continue with abx ( Aztreonam, Diflucan, Flagyl) monitor for signs of infections ( Fever, WBC). Follow up on cultures and bronchoscopy 11/01 Strep pneumonia urinary Ag negative. ID is following- Dr. Zarate Urine cx 10/28: E COLI Heme: Leukocytosis Normocytic anemia Monitor CBC. Patient has hilar mass with pulmonary nodules, also thyroid mass. Palliative care consulted Endocrine: Diabetes mellitus Currently on insulin detemir 26 units twice a day. 24 units sliding scale past 24 hours Right thyroid mass 6.8 cm/chronic SSI for glycemic control(medium scale) Patient is on insulin glargine at home Prophylaxis: Pepcid via OG tube, SCDs/subcutaneous heparin CCT 30 mins Niraj Malloy MD Nov 04, 2016 09:50
[2016-11-04] MEDS ORDERED: amLODIPine BESYLATE 5 MG TAB PO ONE (10:45)
[2016-11-04] MEDS ORDERED: NITROGLYCERIN 2% OINT 1 GM PACKET TOPICAL PRN (10:45)
[2016-11-04] MEDS: LABETALOL HCL 100 MG/20 ML VIAL IV PUSH PRN ×2 (11:00→23:21)
[2016-11-04] MEDS: ACETAMINOPHEN 325 MG TAB PO PRN ×2 (13:09→18:51)
[2016-11-04] MEDS: [UNRECOGNIZED DRUG - REMARK] NG SCH ×2 (17:26→23:20)
--- NOTE | 2016-11-04 18:06 | HHI.IDPN ---
Note Infectious Disease Note ID COVERAGE Notes reviewed D/W RN Admitted with respiratory distress Intubated Sedated on the vent Febrile today Frequent BM - C diff negative UA ok BP ok WBC better Has a lot of oral secretions. Has a large R thyroid CT with a large R central hilar mass/adenopathy and post obstructive infiltrates PAST HISTORY 1. Dementia. 2. Diabetes mellitus. 3. Hypertension. 4. Thyroid disease. 5. Anxiety, depression. 6. Arthritis. ALLERGIES AMOXICILLIN, PROPOXYPHENE. Has received Cephalosporins in the past (Ancef and Rocephin) ANTIBIOTICS: Azactam. Diflucan Flagyl OBJECTIVE: Vital Signs Date Time Temp Pulse Resp B/P (MAP) Pulse Ox O2 Delivery O2 Flow Rate FiO2 11/04/16 16:00 97 11/04/16 16:00 98.7 104 15 163/73 (103) 100 11/04/16 16:00 35 11/04/16 15:13 100 35 11/04/16 14:00 94 11/04/16 12:00 100.2 95 14 169/69 (102) 93 11/04/16 12:00 100.3 92 14 153/69 (97) 99 11/04/16 12:00 95 11/04/16 12:00 35 11/04/16 10:00 109 11/04/16 08:08 100 35 11/04/16 08:00 100 11/04/16 08:00 98.0 96 14 169/69 (102) 93 11/04/16 08:00 102 11/04/16 08:00 98.0 100 14 211/92 (131) 97 11/04/16 08:00 35 11/04/16 06:00 104 11/04/16 04:11 95 35 11/04/16 04:00 98.3 96 14 169/69 (102) 93 11/04/16 04:00 35 11/04/16 04:00 96 11/04/16 02:00 88 11/04/16 00:16 93 35 11/04/16 00:00 98.7 85 14 126/59 (81) 92 11/04/16 00:00 85 11/04/16 00:00 35 11/04/16 00:00 99.3 89 14 108/51 (70) 96 11/03/16 22:00 90 11/03/16 21:00 95 35 11/03/16 20:00 35 11/03/16 20:00 99.3 89 14 108/51 (70) 96 11/03/16 20:00 89 Vital Signs Date Time Temp Pulse Resp B/P (MAP) Pulse Ox O2 Delivery O2 Flow Rate FiO2 11/03/16 11:00 97 11/03/16 10:01 101 11/03/16 10:00 101 11/03/16 09:03 102 14 132/62 (85) 100 11/03/16 09:01 104 14 209/84 (125) 100 11/03/16 08:00 110 11/03/16 08:00 98 19 145/67 (93) 100 11/03/16 08:00 35 11/03/16 07:13 99 35 11/03/16 06:00 103 11/03/16 04:06 100 35 11/03/16 04:00 35 11/03/16 04:00 99.7 105 14 158/70 (99) 98 11/03/16 04:00 105 11/03/16 02:00 106 11/03/16 01:18 94 35 11/03/16 00:00 98 11/03/16 00:00 35 11/03/16 00:00 99.7 98 14 148/65 (92) 95 11/02/16 22:00 112 11/02/16 21:11 99 35 11/02/16 20:00 100.1 121 14 141/62 (88) 97 11/02/16 20:00 35 11/02/16 20:00 121 11/02/16 18:00 119 11/02/16 16:00 100.3 120 14 138/62 (87) 100 11/02/16 16:00 118 11/02/16 16:00 35 11/02/16 14:00 109 Laboratory Tests Test 11/03/16 04:22 11/04/16 03:55 White Blood Count 15.2 TH/MM3 11.9 TH/MM3 Red Blood Count 3.95 MIL/MM3 3.77 MIL/MM3 Hemoglobin 11.4 GM/DL 11.0 GM/DL Hematocrit 35.7 % 33.8 % Mean Corpuscular Volume 90.4 FL 89.7 FL Mean Corpuscular Hemoglobin 28.8 PG 29.2 PG Mean Corpuscular Hemoglobin Concent 31.8 % 32.6 % Red Cell Distribution Width 14.6 % 14.6 % Platelet Count 257 TH/MM3 258 TH/MM3 Mean Platelet Volume 8.6 FL 8.7 FL Neutrophils (%) (Auto) 52.6 % Lymphocytes (%) (Auto) 29.6 % Monocytes (%) (Auto) 10.3 % Eosinophils (%) (Auto) 6.6 % Basophils (%) (Auto) 0.9 % Neutrophils # (Auto) 6.3 TH/MM3 Lymphocytes # (Auto) 3.5 TH/MM3 Monocytes # (Auto) 1.2 TH/MM3 Eosinophils # (Auto) 0.8 TH/MM3 Basophils # (Auto) 0.1 TH/MM3 CBC Comment DIFF FINAL Differential Comment Laboratory Tests Test 11/03/16 04:22 11/04/16 03:55 Blood Urea Nitrogen 23 MG/DL 25 MG/DL Creatinine 0.62 MG/DL 0.64 MG/DL Random Glucose 268 MG/DL 283 MG/DL Calcium Level 8.4 MG/DL 8.2 MG/DL Sodium Level 145 MEQ/L 146 MEQ/L Potassium Level 3.9 MEQ/L 3.7 MEQ/L Chloride Level 113 MEQ/L 114 MEQ/L Carbon Dioxide Level 24.7 MEQ/L 24.1 MEQ/L Anion Gap 7 MEQ/L 8 MEQ/L Estimat Glomerular Filtration Rate 95 ML/MIN 91 ML/MIN Total Protein 6.2 GM/DL Albumin 2.2 GM/DL Alkaline Phosphatase 87 U/L Aspartate Amino Transf (AST/SGOT) 35 U/L Alanine Aminotransferase (ALT/SGPT) 28 U/L Total Bilirubin 0.2 MG/DL Microbiology Date/Time Source Procedure Growth Status 11/01/16 16:20 Bronchial Washings Right Upper Lobe Gram Stain - Final Resulted 11/01/16 16:20 Bronchial Washings Right Upper Lobe Bronchial Culture Pending Resulted 11/01/16 16:20 Bronchial Washings Right Upper Lobe Fungal Smear Pending Received 11/01/16 16:20 Bronchial Washings Right Upper Lobe Fungal Culture Pending Received 11/01/16 16:20 Bronchial Washings Right Upper Lobe Acid Fast Stain - Final NO ACID FAST BACILLI SEEN Resulted 11/01/16 16:20 Bronchial Washings Right Upper Lobe Mycobacterial Culture Pending Resulted IMAGING: Chest X-Ray 11/03/16 0600 Signed Impressions: Service Date/Time: Thursday, November 03, 2016 04:44 - CONCLUSION: 1. ET tube 1.8 cm above the radhika and needs to be withdrawn 1 cm. 2. Persistent, stable, infiltrates right hilar and left lower lung. Eric Weaver MD Chest X-Ray 11/01/16 0600 Signed Impressions: Service Date/Time: October 03:56 - CONCLUSION: Cardiomegaly with bibasilar pulmonary infiltrates. Pulmonary vascular engorgement. Eric Levine Jr., MD Chest X-Ray 10/31/16 0600 Signed Impressions: Service Date/Time: Monday, October 31, 2016 02:38 - CONCLUSION: Limited study by motion artifact. Lines and tubes. Grossly clear lungs. Eric Levine Jr., MD Thyroid Ultrasound 10/31/16 0000 Signed Impressions: Service Date/Time: Monday, October 31, 2016 11:47 - CONCLUSION: Large complex mass right lobe of the thyroid. Minimally increased in size since Jacoby Torre MD FACR PHYSICAL EXAMINATION GENERAL: Sedated on the vent, not in acute distress. SKIN: Warm and dry, no generalized rash HEENT: [place] conjunctiva, no icterus, no nasal drainage, ET in mouth. A lot of clear oral secretions NECK: Obese, fullness palpated at the right lateral neck. No induration. LUNGS: Decreased breath sounds at the bases HEART: Regular rate and rhythm without audible murmurs or rubs or gallops. ABDOMEN: Obese, soft, diminished bowel sounds. No reaction to palpation. EXTREMITIES: No clubbing or cyanosis or pedal edema. Hands edematous NEURO: Sedated PSYCHE: Unable to assess. LINE: PIV with no evidence of infection : Jang in place, urine looks clear IMPRESSION Bilateral PNA, with R hilar mass and postobstructive PNA Respiratory failure Large R thyroid gland UTI with E coli Leukocytosis, better Fevers, ?new sepsis RECOMMENDATIONS Continue aztreonam. Continue Flagyl Continue Diflucan Repeat 2 BC today (temps higher) Follow new C/S and adjust Abx Monitor temps Follow CBC Monitor progress D/W Britt Dugan MD Nov 04, 2016 18:06
[2016-11-05] VITALS (27 sets, daily range): BP systolic 136–191; BP diastolic 64–84; PULSE 92–109; RESP 16–39; TEMP 99.9–102; O2SAT 94–100
[2016-11-05] MEDS: LABETALOL HCL 100 MG/20 ML VIAL IV PUSH PRN ×2 (00:14→04:31)
[2016-11-05] MEDS: ACETAMINOPHEN 325 MG TAB PO PRN ×3 (00:14→15:12)
[2016-11-05] MEDS: RESP: ALBUTEROL 2.5 MG/IPRATROPIUM 0.5 MG NEB (SCH) NEB ×4 (00:57→11:45)
[2016-11-05] MEDS: PROPOFOL 1000 MG/100 ML INJ 100 ML IV PRN ×2 (01:03→06:10)
[2016-11-05] MEDS: metroNIDAZOLE 500 MG TAB PO SCH ×3 (04:31→22:25)
[2016-11-05] MEDS: METOPROLOL TARTRATE 25 MG TAB PO SCH (04:31)
[2016-11-05] MEDS: ARTIFICIAL TEARS OPTH SOLN 15 ML BTL EACH EYE SCH ×3 (04:32→22:50)
[2016-11-05] MEDS: INSULIN ASPART SUPPLEMENTAL SCALE SQ SCH ×2 (04:32→12:00)
[2016-11-05] MEDS: [UNRECOGNIZED DRUG - REMARK] NG SCH ×3 (04:32→18:00)
--- NOTE | 2016-11-05 05:48 | RADRPT ---
EXAM DATE/TIME: 11/05/2016 03:32 [place] COMPARISON: CHEST SINGLE AP, November 03, 2016, 4:44. INDICATIONS : Shortness of breath, possible pulmonary disease. MEDICAL HISTORY : Osteoarthritis. Diabetes mellitus type II. Hypertension. SURGICAL HISTORY : None. ENCOUNTER: Subsequent ACUITY: 1 week PAIN SCORE: Non-responsive. LOCATION: Bilateral chest FINDINGS: A single view of the chest demonstrates endotracheal tube in good position. NG enters stomach. Heart size upper limits normal. Mild bilateral mostly basilar airspace disease similar to prior exam. No pn eumothorax. CONCLUSION: 1. Mild basilar airspace disease similar to November 03. Support apparatus in good position. Nestor Palomino MD on November 05, 2016 at 5:44 Board Certified Radiologist. This report was verified electronically.
[2016-11-05 05:51] LABS: AUTOMATED NEUTROPHIL # 11.6 TH/MM3 (1.8-7.7); BASOPHIL # 0.1 TH/MM3 (0-0.2); BASOPHIL % 0.8 % (0.0-2.0); EOSINOPHIL # 0.6 TH/MM3 (0-0.4); EOSINOPHIL % 3.4 % (0.0-4.0); HEMATOCRIT 33.9 % (35.0-46.0); HEMO FLAGS DIFF FINAL; LYMPH % 14.1 % (9.0-44.0); LYMPHOCYTE # 2.3 TH/MM3 (1.0-4.8); MEAN CELL VOLUME 90.3 FL (80.0-100.0); MEAN CORPUSCULAR HEMOGLOBIN 29.5 PG (27.0-34.0); MEAN CORPUSCULAR HGB CONC 32.7 % (32.0-36.0); MONO % 9.4 % (0.0-8.0); NEUT % 72.3 % (16.0-70.0); PLATELET COUNT 285 TH/MM3 (150-450); RED BLOOD COUNT 3.75 MIL/MM3 (4.00-5.30); RED CELL DISTRIBUTION WIDTH 15.1 % (11.6-17.2); WHITE BLOOD COUNT 16.1 TH/MM3 (4.0-11.0)
[2016-11-05 06:13] LABS: BICARBONATE 22.8 MEQ/L (21.0-32.0); MAGNESIUM 2.3 MG/DL (1.5-2.5); POTASSIUM 3.6 MEQ/L (3.5-5.1)
[2016-11-05] MEDS: INSULIN DETEMIR 100 UNITS/ML VIAL SQ SCH ×2 (08:00→20:00)
[2016-11-05] MEDS: CHLORHEXIDINE 0.12% (ORAL KIT) 15 ML CUP MT SCH ×2 (08:00→22:25)
[2016-11-05] MEDS: AZTREONAM INJ 2,000 MG in SODIUM CHLORIDE 0.9% INJ 100 ML IV SCH ×2 (08:00→16:36)
[2016-11-05] MEDS ORDERED: BUMETANIDE INJ 1 MG/4 ML VIAL IV PUSH ONE (08:15)
--- NOTE | 2016-11-05 08:16 | HHI.CCPN ---
Subjective Remarks/Hospital Course HPI 70-year-old senior care resident with a medical history significant for dementia, diabetes mellitus, hyperlipidemia, reactive airway disease who was found to have altered mental status at the senior care for which EMS was called. Patient was noted to have O2 sats in the 70s. She was very apneic with her head slumped down. Paramedics report of having to hold her head up to have her breathe with the nebulizer treatment in place. Patient was given Solu- Medrol 125 mg IV and 4 nebulizer treatments prior to arrival in the ER for documentation. On arrival in the ER patient was extremely lethargic however was reportedly able to answer some questions. Patient was felt not to be able to protect her airway as well as very hypoxic and hence was intubated by ER physician and placed on mechanical ventilation. Chest x-ray in the ER showed bilateral infiltrates and possible cavitary lesion. She was accepted for admission by critical care medicine service. CT chest was ordered by ER physician. When I evaluated the patient in the ER she was sedated with propofol , orally intubated on mechanical ventilation. History was obtained by reviewing records and discussion with ER physician. 10/29 Patient is sedated with Diprivan and intubated. Afebrile. 10/30 Patient remains sedated and intubated. T:99.7 last night. 10/31: Intubated sedated. CT reviewed and discussed with Dr. Madison. Will consider Bronch. Also check thyroid US and possible biopsy. Check thyroid studies. Also consult palliative care as patient has underlying dementia with NPH and possible malignancy. 11/01: Tmax 100.3. Plan for bronchoscopy at 3:00 today. Noted thyroid masses chronic/since 2011. Tolerating tube feeding. Positive BM. 11/02: Tmax 100.1. Status post bronchoscopy yesterday with removal of mucous plugging. Tolerating tube feeds. Positive BM. Weaning propofol sedation today. 11/03: Tmax 100.6. Noted elevated leukocytosis. Weaning sedation. Positive BM. Tolerate tube feeding. Subjective 11/04: Afebrile. UA negative. C. difficile pending. 4 bowel movement overnight. Tolerating tube feeding. No new issues. 11/05 Patient is sedated with Diprivan and intubated. T:100.7. Given Labetalol 10mg IV x3 for hypertension overnight. Objective Vital Signs Date Time Temp Pulse Resp B/P (MAP) Pulse Ox O2 Delivery O2 Flow Rate FiO2 11/05/16 07:50 98 35 11/05/16 06:00 100 11/05/16 04:00 100.7 39 191/84 (119) Intake and Output 11/05/16 11/05/16 11/06/16 08:00 16:00 00:00 Intake Total 1161 ml Balance 1161 ml Result Diagram: 11/05/16 0436 11/05/16 0436 Other Results Laboratory Tests Test 11/05/16 04:36 White Blood Count 16.1 TH/MM3 Red Blood Count 3.75 MIL/MM3 Hemoglobin 11.1 GM/DL Hematocrit 33.9 % Mean Corpuscular Volume 90.3 FL Mean Corpuscular Hemoglobin 29.5 PG Mean Corpuscular Hemoglobin Concent 32.7 % Red Cell Distribution Width 15.1 % Platelet Count 285 TH/MM3 Mean Platelet Volume 8.6 FL Neutrophils (%) (Auto) 72.3 % Lymphocytes (%) (Auto) 14.1 % Monocytes (%) (Auto) 9.4 % Eosinophils (%) (Auto) 3.4 % Basophils (%) (Auto) 0.8 % Neutrophils # (Auto) 11.6 TH/MM3 Lymphocytes # (Auto) 2.3 TH/MM3 Monocytes # (Auto) 1.5 TH/MM3 Eosinophils # (Auto) 0.6 TH/MM3 Basophils # (Auto) 0.1 TH/MM3 CBC Comment DIFF FINAL Differential Comment Blood Urea Nitrogen 24 MG/DL Creatinine 0.71 MG/DL Random Glucose 255 MG/DL Calcium Level 8.2 MG/DL Phosphorus Level 3.8 MG/DL Magnesium Level 2.3 MG/DL Sodium Level 144 MEQ/L Potassium Level 3.6 MEQ/L Chloride Level 110 MEQ/L Carbon Dioxide Level 22.8 MEQ/L Anion Gap 11 MEQ/L Estimat Glomerular Filtration Rate 81 ML/MIN Imaging Last Impressions Chest X-Ray 11/05/16 0600 Signed Impressions: Service Date/Time: Saturday, November 05, 2016 03:32 - CONCLUSION: 1. Mild basilar airspace disease similar to November 03. Support apparatus in good position. Nestor Palomino MD Thyroid Ultrasound 10/31/16 0000 Signed Impressions: Service Date/Time: Monday, October 31, 2016 11:47 - CONCLUSION: Large complex mass right lobe of the thyroid. Minimally increased in size since Jacoby Torre MD FACR Brain MRI 10/30/16 0000 Signed Impressions: Service Date/Time: Sunday, October 30, 2016 11:38 - CONCLUSION: 1. Ventriculomegaly/hydrocephalus, differential includes normal pressure hydrocephalus and aqueductal stenosis. 2. Extensive nonspecific white matter changes. Edwin Jacome MD Abdomen X-Ray 10/29/16 0000 Signed Impressions: Service Date/Time: Saturday, October 29, 2016 15:32 - CONCLUSION: Negative for radiopaque foreign bodies. Jacoby Torre MD FACR Chest CT 10/28/16 1814 Signed Impressions: Service Date/Time: Friday, October 28, 2016 18:28 - CONCLUSION: 1. Abnormality on chest radiograph corresponds to a 3.4 x 3.5 cm central right hilar mass/adenopathy with associated postobstructive airspace consolidation in the inferior right upper lobe. There are at least 2 additional pulmonary nodules measuring 13 x 8 mm in the anterior right middle lobe and 8 x 8 mm in the anterior right upper lobe near the apex. 2. 3.9 x 4.3 cm heterogeneous nodule in the right thyroid gland. No significant regional cervical adenopathy. 3. Patchy bilateral lower lobe air space consolidation and diffuse ground glass opacities. Differential considerations include ARDS versus infection versus aspiration. 1. Tyler Selby MD Head CT 10/28/16 0000 Signed Impressions: Service Date/Time: Friday, October 28, 2016 20:44 - CONCLUSION: 1. No bleed or evidence of acute infarction. 2. Atrophy and chronic white matter changes. 3. Moderate ventriculomegaly, beyond that expected for the degree of atrophy. Normal pressure hydrocephalus would be in the differential. Keshav Burks MD Objective Remarks GENERAL: 71-year-old female, critically ill currently orotracheally intubated SKIN: Warm and dry. No rash HEAD: Atraumatic. Normocephalic. EYES: Pupils equal and round about 3 mm bilaterally and reactive. No scleral icterus. No injection or drainage. ENT: No nasal bleeding or discharge. Mucous membranes pink and moist. NECK: Trachea midline. No JVD. Right-sided thyromegaly/palpable mass noted CARDIOVASCULAR: Tachycardic, RR. S1, S2 no S4. Without murmur RESPIRATORY: Diminished breath sounds right upper lobe. Coarse crackles appreciated bilaterally. No wheeze GASTROINTESTINAL: Abdomen soft, non-tender, nondistended. Hepatic and splenic margins not palpable. MUSCULOSKELETAL: Extremities bilateral trace nonpitting lower extremity edema. No obvious deformities. NEUROLOGICAL: On sedation vacation following commands using bilateral upper extremities yesterday A/P Assessment and Plan Plan: Neuro/Psych: Depression/anxiety Toxic metabolic encephalopathy Ventriculomegaly History of dementia On Diprivan infusion at 35 mcg/kg per minute for sedation. Goal of RA SS -2 Daily sedation vacation. Check EEG CT brain: Moderate ventriculomegaly, beyond that expected for the degree of atrophy. MRI confirms. Neurosurgery is following- Dr. Hernandez No acute intervention Currently holding home medications clonazepam 0.5 mg twice a day and quetiapine 25 mg at night CV: Hypertension Dyslipidemia Increase Lopressor 50mg Q8-Monitor HR and BP keep MAP>65mmHg Increase Amlodipine 10 mg daily Home medication for hypertension include amlodipine 10 mg by mouth daily and carvedilol 25 mg by mouth twice a day As needed hydralazine and labetalol and Nitropaste for hypertension Currently holding atorvastatin 40 mg by mouth daily for dyslipidemia. Resume when clinically indicated Pulm Acute hypoxemic respiratory failure possibly secondary to post obstructive pneumonia [facility] 14500/02/15/34 Ventilator bundle Albuterol/hypertensive aerosols every 4 hours with albuterol aerosols every [address] chest reviewed revealed 3.4 x 2.5 right hilar mass with post discharge pneumonia in the right upper lobe. Right middle lobe mass. Pulm is following- Dr. Madison,s/p bronch with BAL 11/01. Results no growth to date Sputum culture negative to date Renal/: Hypernatremia Monitor renal function, I/O's, electrolytes replacement per protocol. On free water 200 cc every 6 hours tube feeds Diurese with Bumex 1mg x1 GI/liver: Mild protein calorie malnutrition Continue with Glucerna 1.5 at 40 cc an hour On famotidine 20mg BID for GI prophylaxis ID: Escherichia coli UTI Postobstructive pneumonia Continue with abx ( Aztreonam, Diflucan, Flagyl) monitor for signs of infections ( Fever, WBC). Follow up on cultures and bronchoscopy 11/01- NGTD BC 11/04: NGTD Strep pneumonia urinary Ag negative. ID is following- Dr. Zarate Urine cx 10/28: E COLI Heme: Leukocytosis Normocytic anemia Monitor CBC. Patient has hilar mass with pulmonary nodules, also thyroid mass. Palliative care is following Endocrine: Diabetes mellitus Currently on insulin detemir 26 units twice a day. Right thyroid mass 6.8 cm/chronic Increase SSI high scale for glycemic control. Patient is on insulin glargine at home Prophylaxis: Pepcid via OG tube, SCDs/subcutaneous heparin CCT 30 mins Santana Browning MD Nov 05, 2016 08:16
[2016-11-05] MEDS: FLUCONAZOLE 100 MG TAB PO SCH (08:46)
[2016-11-05] MEDS: LACTOBACILLUS ACIDOPHILUS TAB PO SCH ×3 (08:47→18:00)
[2016-11-05] MEDS: SODIUM CHLORIDE 0.9% FLUSH 10 ML FLUSH IV FLUSH SCH ×2 (08:47→22:26)
[2016-11-05] MEDS: HEPARIN SODIUM - SQ 10,000 UNITS/ML VIAL SQ SCH ×2 (08:48→16:36)
[2016-11-05] MEDS: MUPIROCIN 2% OINT 1 APPLIC/GM SYR EACH NARE SCH ×2 (08:48→22:25)
[2016-11-05] MEDS: FAMOTIDINE 20 MG TAB PO SCH ×2 (08:49→22:25)
[2016-11-05] MEDS ORDERED: amLODIPine BESYLATE 5 MG TAB PO SCH (09:00)
[2016-11-05 09:28] LABS: BLOOD GAS BASE EXCESS -2.2 mmol/L (-2-2); BLOOD GAS CARBOXYHEMOGLOBIN 1.6 % (0-4); BLOOD GAS HCO3 21 mmol/L (22-26); BLOOD GAS METHEMOGLOBIN 1.3 % (0-2); BLOOD GAS O2 HGB SATURATION 91 % (90-100); BLOOD GAS OXYGEN CONTENT 13.4 Vol % (12.0-20.0); BLOOD GAS PCO2 32 mmHg (38-42); BLOOD GAS PO2 66 mmHg (61-120); BLOOD GAS TOTAL HGB 10.5 G/DL (12.0-16.0); TEMP CORR TO 98.6
[2016-11-05 09:29] LABS: CRITICAL VALUE NO; DRAW SITE RT RADIAL; FIO2 35 %; NUMBER OF ARTERIAL PUNCTURES 1; OXYGEN DEVICE VENTILATOR; STAT NO; VENT SETTINGS SEE COMMENTS
--- NOTE | 2016-11-05 12:28 | HHI.IDPN ---
Note Infectious Disease Note Patient on the vent. Failed CPAP. Off sedation and opens and tracks with eyes but not following commands. Thick ETT secretions. Higher temps. Admitted with respiratory distress. PAST MEDICAL HISTORY 1. Dementia. 2. Diabetes mellitus. 3. Hypertension. 4. Thyroid disease. 5. Anxiety, depression. 6. Arthritis. ALLERGIES AMOXICILLIN, PROPOXYPHENE. ANTIBIOTICS: Azactam. Diflucan. Flagyl. OBJECTIVE: Vital Signs Date Time Temp Pulse Resp B/P (MAP) Pulse Ox O2 Delivery O2 Flow Rate FiO2 11/05/16 11:45 99 35 11/05/16 10:25 98 35 11/05/16 10:21 98 35 11/05/16 10:21 34 11/05/16 10:00 106 11/05/16 09:00 104 11/05/16 08:00 35 11/05/16 08:00 102.0 100 19 165/70 (101) 100 11/05/16 08:00 100 11/05/16 07:50 98 35 11/05/16 07:00 96 11/05/16 06:00 100 11/05/16 04:00 101 11/05/16 04:00 35 11/05/16 04:00 100.7 101 39 191/84 (119) 100 11/05/16 03:41 100 35 11/05/16 02:00 100 11/05/16 01:17 14 11/05/16 00:57 94 35 11/05/16 00:00 35 11/05/16 00:00 100.8 100 16 181/79 (113) 98 11/05/16 00:00 100 11/04/16 22:00 95 11/04/16 20:23 95 35 11/04/16 20:00 98.7 104 15 163/73 (103) 100 11/04/16 20:00 35 11/04/16 20:00 99.2 94 26 175/81 (112) 97 11/04/16 20:00 94 11/04/16 18:00 105 11/04/16 16:00 97 11/04/16 16:00 98.7 104 15 163/73 (103) 100 11/04/16 16:00 35 11/04/16 15:13 100 35 11/04/16 14:00 94 Laboratory Tests Test 11/04/16 03:55 11/05/16 04:36 White Blood Count 11.9 TH/MM3 16.1 TH/MM3 Red Blood Count 3.77 MIL/MM3 3.75 MIL/MM3 Hemoglobin 11.0 GM/DL 11.1 GM/DL Hematocrit 33.8 % 33.9 % Mean Corpuscular Volume 89.7 FL 90.3 FL Mean Corpuscular Hemoglobin 29.2 PG 29.5 PG Mean Corpuscular Hemoglobin Concent 32.6 % 32.7 % Red Cell Distribution Width 14.6 % 15.1 % Platelet Count 258 TH/MM3 285 TH/MM3 Mean Platelet Volume 8.7 FL 8.6 FL Neutrophils (%) (Auto) 52.6 % 72.3 % Lymphocytes (%) (Auto) 29.6 % 14.1 % Monocytes (%) (Auto) 10.3 % 9.4 % Eosinophils (%) (Auto) 6.6 % 3.4 % Basophils (%) (Auto) 0.9 % 0.8 % Neutrophils # (Auto) 6.3 TH/MM3 11.6 TH/MM3 Lymphocytes # (Auto) 3.5 TH/MM3 2.3 TH/MM3 Monocytes # (Auto) 1.2 TH/MM3 1.5 TH/MM3 Eosinophils # (Auto) 0.8 TH/MM3 0.6 TH/MM3 Basophils # (Auto) 0.1 TH/MM3 0.1 TH/MM3 CBC Comment DIFF FINAL DIFF FINAL Differential Comment Laboratory Tests Test 11/04/16 03:55 11/05/16 04:36 Blood Urea Nitrogen 25 MG/DL 24 MG/DL Creatinine 0.64 MG/DL 0.71 MG/DL Random Glucose 283 MG/DL 255 MG/DL Total Protein 6.2 GM/DL Albumin 2.2 GM/DL Calcium Level 8.2 MG/DL 8.2 MG/DL Alkaline Phosphatase 87 U/L Aspartate Amino Transf (AST/SGOT) 35 U/L Alanine Aminotransferase (ALT/SGPT) 28 U/L Total Bilirubin 0.2 MG/DL Sodium Level 146 MEQ/L 144 MEQ/L Potassium Level 3.7 MEQ/L 3.6 MEQ/L Chloride Level 114 MEQ/L 110 MEQ/L Carbon Dioxide Level 24.1 MEQ/L 22.8 MEQ/L Anion Gap 8 MEQ/L 11 MEQ/L Estimat Glomerular Filtration Rate 91 ML/MIN 81 ML/MIN Phosphorus Level 3.8 MG/DL Magnesium Level 2.3 MG/DL Microbiology Date/Time Source Procedure Growth Status 11/04/16 18:55 Blood Peripheral Aerobic Blood Culture - Preliminary NO GROWTH IN 1 DAY Resulted 11/04/16 18:55 Blood Peripheral Anaerobic Blood Culture - Preliminary NO GROWTH IN 1 DAY Resulted 11/04/16 18:45 Blood Peripheral Aerobic Blood Culture - Preliminary NO GROWTH IN 1 DAY Resulted 11/04/16 18:45 Blood Peripheral Anaerobic Blood Culture - Preliminary NO GROWTH IN 1 DAY Resulted IMAGING: Chest X-Ray 11/05/16 0600 Signed Impressions: Service Date/Time: Saturday, November 05, 2016 03:32 - CONCLUSION: 1. Mild basilar airspace disease similar to November 03. Support apparatus in good position. Nestor Palomino MD Chest X-Ray 11/01/16 06 Signed Impressions: Service Date/Time: October 03:56 - CONCLUSION: Cardiomegaly with bibasilar pulmonary infiltrates. Pulmonary vascular engorgement. Eric Levine Jr., MD Chest X-Ray 10/31/16 06 Signed Impressions: Service Date/Time: Monday, October 31, 2016 02:38 - CONCLUSION: Limited study by motion artifact. Lines and tubes. Grossly clear lungs. Eric Levine Jr., MD Thyroid Ultrasound 10/31/16 0000 Signed Impressions: Service Date/Time: Monday, October 31, 2016 11:47 - CONCLUSION: Large complex mass right lobe of the thyroid. Minimally increased in size since Jacoby Torre MD FACR PHYSICAL EXAMINATION GENERAL: On the ventilator. No acute distress. NECK: Obese, fullness palpated at the right lateral neck. No induration. LUNGS: Basilar rhonchi bilateral. HEART: Tachycardic. No audible murmurs or rubs or gallops. ABDOMEN: Obese, soft, No tenderness. EXTREMITIES: No clubbing or cyanosis or edema. SKIN: No rash. NEURO: Awake. No following commands. PSYCHE: Unable to assess. IMPRESSION 1. Bilateral pneumonia with hilar cavitary mass. Sputum culture has no growth. The patient also has lung nodules and also a thyroid lesion and hence, potentially may have malignancy. 2. Acute respiratory failure. 3. UTI - E.coli. (S) to Aztreonam. 4. Fever and increased WBC. ? sepsis. RECOMMENDATIONS 1. Add Vancomycin. 2. Continue aztreonam. 3. Continue Diflucan. Yeast in bronch. ? significance. 4. Continue Flagyl. 5. Monitor the temperature. 6. Follow the blood cultures. D/W RN. Francisco Zarate MD Nov 05, 2016 12:28
[2016-11-05] MEDS ORDERED: Vancomycin Consult Pharmacy 1 EA OTHER SCH (12:30)
[2016-11-05] MEDS ORDERED: GLUCAGON 1 MG/ML VIAL OTHER PRN (15:00)
[2016-11-05] MEDS: INSULIN NovoLIN REGULAR SUPPLEMENTAL SCALE SQ SCH ×2 (15:00→21:00)
[2016-11-05] MEDS ORDERED: DEXTROSE 50% IN WATER 50 ML SYRINGE IV PUSH PRN (15:00)
[2016-11-05] MEDS ORDERED: VANCOMYCIN INJ 1,250 MG in SODIUM CHLOR 0.9% 250 ML INJ 250 ML IV SCH (15:00)
[2016-11-05] MEDS: METOPROLOL TARTRATE 50 MG TAB PO SCH ×2 (15:04→22:25)
--- NOTE | 2016-11-05 20:29 | HHI.PR ---
Subjective Remarks 70 YOWF with VDRF,Pneumonia, ? Aspiration Sedated with Fentanyl Tolerated CPAP 5 min only Low grade Fever Thick mucous removed has tracheobronchomalacia no Endobronchial lesion. Off sedation Objective Vital Signs Vital Signs Date Time Temp Pulse Resp B/P (MAP) Pulse Ox O2 Delivery O2 Flow Rate FiO2 11/05/16 19:00 100 11/05/16 18:00 93 11/05/16 17:00 93 11/05/16 16:01 95 35 11/05/16 16:00 35 11/05/16 16:00 99.9 92 20 96 11/05/16 16:00 92 11/05/16 15:00 108 11/05/16 14:00 109 11/05/16 13:45 35 11/05/16 13:15 35 11/05/16 13:00 109 11/05/16 12:00 109 11/05/16 12:00 35 11/05/16 12:00 100.0 109 16 147/67 (93) 98 11/05/16 11:45 99 35 11/05/16 11:00 103 11/05/16 10:25 98 35 11/05/16 10:21 98 35 11/05/16 10:21 34 11/05/16 10:00 106 11/05/16 09:00 104 11/05/16 08:00 35 11/05/16 08:00 102.0 100 19 165/70 (101) 100 11/05/16 08:00 100 11/05/16 07:50 98 35 11/05/16 07:00 96 11/05/16 06:00 100 11/05/16 04:00 101 11/05/16 04:00 35 11/05/16 04:00 100.7 101 39 191/84 (119) 100 11/05/16 03:41 100 35 11/05/16 02:00 100 11/05/16 01:17 14 11/05/16 00:57 94 35 11/05/16 00:00 35 11/05/16 00:00 100.8 100 16 181/79 (113) 98 11/05/16 00:00 100 11/04/16 22:00 95 I/O 11/04/16 11/04/16 11/04/16 11/05/16 11/05/16 11/05/16 07:00 15:00 23:00 07:00 15:00 23:00 Intake Total 799 ml 205 ml 945 ml 1161 ml 100 ml 1226.5 ml Output Total 1300 ml Balance 799 ml 205 ml -355 ml 1161 ml 100 ml 1226.5 ml Intake IV Total 110 ml 205 ml 545 ml 327 ml 100 ml 362.5 ml Tube Feeding 449 ml 434 ml 464 ml Other 240 ml 400 ml 400 ml 400 ml Output Urine Total 1000 ml Stool Total 300 ml # Voids 2 3 4 # Bowel Movements 2 3 1 2 Result Diagram: 11/05/1643511/05/16435 Objective Remarks GENERAL: MBMN WF, intubated, sedated SKIN: Warm and dry. HEAD: Normocephalic. EYES: No scleral icterus. No injection or drainage. NECK: Supple, trachea midline. No JVD or lymphadenopathy. CARDIOVASCULAR: Regular rate and rhythm without murmurs, gallops, or rubs. RESPIRATORY: Breath sounds equal bilaterally. No accessory muscle use. GASTROINTESTINAL: Abdomen soft, non-tender, nondistended. MUSCULOSKELETAL: No cyanosis, or edema. BACK: Nontender without obvious deformity. No CVA tenderness. A/P Assessment and Plan VDRF Pneumonia Aspiration DM Dementia Ventriculomegaly PLAN: Vent Support PRVC-AC 14, Fi02 40% Cont Abx Aerosol nebs SQ Heparin Code status DNR Luis Madison MD Nov 05, 2016 20:29
[2016-11-06] VITALS (26 sets, daily range): BP systolic 139–170; BP diastolic 59–79; PULSE 82–115; RESP 14–35; TEMP 98.9–102; O2SAT 92–100
[2016-11-06] MEDS: HEPARIN SODIUM - SQ 10,000 UNITS/ML VIAL SQ SCH ×4 (01:07→23:48)
[2016-11-06] MEDS: AZTREONAM INJ 2,000 MG in SODIUM CHLORIDE 0.9% INJ 100 ML IV SCH ×4 (01:07→23:48)
[2016-11-06] MEDS: INSULIN NovoLIN REGULAR SUPPLEMENTAL SCALE SQ SCH ×4 (03:00→20:41)
[2016-11-06] MEDS: CHLORHEXIDINE GLUCONATE 2 % 1 PACK (2 CLOTHS) TOP SCH (03:31)
[2016-11-06] MEDS: LABETALOL HCL 100 MG/20 ML VIAL IV PUSH PRN (03:37)
[2016-11-06] MEDS: [UNRECOGNIZED DRUG - REMARK] NG SCH ×5 (05:21→23:48)
[2016-11-06] MEDS: ARTIFICIAL TEARS OPTH SOLN 15 ML BTL EACH EYE SCH ×3 (05:21→20:59)
[2016-11-06] MEDS: METOPROLOL TARTRATE 50 MG TAB PO SCH ×3 (05:21→20:40)
[2016-11-06] MEDS: metroNIDAZOLE 500 MG TAB PO SCH ×3 (05:21→20:40)
[2016-11-06 06:06] LABS: BASOPHIL # 0.1 TH/MM3 (0-0.2); BASOPHIL % 0.8 % (0.0-2.0); EOSINOPHIL # 0.5 TH/MM3 (0-0.4); HEMATOCRIT 32.8 % (35.0-46.0); HEMO FLAGS DIFF FINAL; LYMPH % 14.9 % (9.0-44.0); LYMPHOCYTE # 2.3 TH/MM3 (1.0-4.8); MEAN CORPUSCULAR HEMOGLOBIN 29.8 PG (27.0-34.0); MEAN CORPUSCULAR HGB CONC 33.5 % (32.0-36.0); MONO % 11.1 % (0.0-8.0); NEUT % 70.2 % (16.0-70.0); PLATELET COUNT 275 TH/MM3 (150-450); RED BLOOD COUNT 3.69 MIL/MM3 (4.00-5.30); WHITE BLOOD COUNT 15.6 TH/MM3 (4.0-11.0)
[2016-11-06 06:21] LABS: BICARBONATE 24.3 MEQ/L (21.0-32.0); MAGNESIUM 2.2 MG/DL (1.5-2.5); POTASSIUM 3.3 MEQ/L (3.5-5.1)
[2016-11-06] MEDS: INSULIN DETEMIR 100 UNITS/ML VIAL SQ SCH ×2 (08:00→20:00)
[2016-11-06] MEDS: CHLORHEXIDINE 0.12% (ORAL KIT) 15 ML CUP MT SCH ×2 (08:00→20:59)
--- NOTE | 2016-11-06 08:08 | HHI.CCPN ---
Subjective Remarks/Hospital Course HPI 70-year-old longterm resident with a medical history significant for dementia, diabetes mellitus, hyperlipidemia, reactive airway disease who was found to have altered mental status at the longterm for which EMS was called. Patient was noted to have O2 sats in the 70s. She was very apneic with her head slumped down. Paramedics report of having to hold her head up to have her breathe with the nebulizer treatment in place. Patient was given Solu- Medrol 125 mg IV and 4 nebulizer treatments prior to arrival in the ER for documentation. On arrival in the ER patient was extremely lethargic however was reportedly able to answer some questions. Patient was felt not to be able to protect her airway as well as very hypoxic and hence was intubated by ER physician and placed on mechanical ventilation. Chest x-ray in the ER showed bilateral infiltrates and possible cavitary lesion. She was accepted for admission by critical care medicine service. CT chest was ordered by ER physician. When I evaluated the patient in the ER she was sedated with propofol , orally intubated on mechanical ventilation. History was obtained by reviewing records and discussion with ER physician. 10/29 Patient is sedated with Diprivan and intubated. Afebrile. 10/30 Patient remains sedated and intubated. T:99.7 last night. 10/31: Intubated sedated. CT reviewed and discussed with Dr. Madison. Will consider Bronch. Also check thyroid US and possible biopsy. Check thyroid studies. Also consult palliative care as patient has underlying dementia with NPH and possible malignancy. 11/01: Tmax 100.3. Plan for bronchoscopy at 3:00 today. Noted thyroid masses chronic/since 2011. Tolerating tube feeding. Positive BM. 11/02: Tmax 100.1. Status post bronchoscopy yesterday with removal of mucous plugging. Tolerating tube feeds. Positive BM. Weaning propofol sedation today. 11/03: Tmax 100.6. Noted elevated leukocytosis. Weaning sedation. Positive BM. Tolerate tube feeding. Subjective 11/04: Afebrile. UA negative. C. difficile pending. 4 bowel movement overnight. Tolerating tube feeding. No new issues. 11/05 Patient is sedated with Diprivan and intubated. T:100.7. Given Labetalol 10mg IV x3 for hypertension overnight. 9/26 No events overnight. Off sedation. T: 101.5 last night. Objective Vital Signs Date Time Temp Pulse Resp B/P (MAP) Pulse Ox O2 Delivery O2 Flow Rate FiO2 11/06/16 06:00 96 11/06/16 04:00 35 11/06/16 04:00 96 11/06/16 04:00 98.9 14 170/72 (104) Intake and Output 11/06/16 11/06/16 11/07/16 08:00 16:00 00:00 Intake Total 1116 ml Balance 1116 ml Result Diagram: 11/06/16 0431 11/06/16 0431 Other Results Laboratory Tests Test 11/05/16 09:18 11/06/16 04:31 Blood Gas Puncture Site RT RADIAL Blood Gas Patient Temperature 98.6 Blood Gas HCO3 21 mmol/L Blood Gas Base Excess -2.2 mmol/L Blood Gas Oxygen Saturation 91 % Arterial Blood pH 7.44 Arterial Blood Partial Pressure CO2 32 mmHg Arterial Blood Partial Pressure O2 66 mmHg Arterial Blood Oxygen Content 13.4 Vol % Arterial Blood Carboxyhemoglobin 1.6 % Arterial Blood Methemoglobin 1.3 % Blood Gas Hemoglobin 10.5 G/DL Oxygen Delivery Device VENTILATOR Blood Gas Ventilator Setting SEE COMMENTS Blood Gas Inspired Oxygen 35 % White Blood Count 15.6 TH/MM3 Red Blood Count 3.69 MIL/MM3 Hemoglobin 11.0 GM/DL Hematocrit 32.8 % Mean Corpuscular Volume 89.0 FL Mean Corpuscular Hemoglobin 29.8 PG Mean Corpuscular Hemoglobin Concent 33.5 % Red Cell Distribution Width 15.0 % Platelet Count 275 TH/MM3 Mean Platelet Volume 8.8 FL Neutrophils (%) (Auto) 70.2 % Lymphocytes (%) (Auto) 14.9 % Monocytes (%) (Auto) 11.1 % Eosinophils (%) (Auto) 3.0 % Basophils (%) (Auto) 0.8 % Neutrophils # (Auto) 11.0 TH/MM3 Lymphocytes # (Auto) 2.3 TH/MM3 Monocytes # (Auto) 1.7 TH/MM3 Eosinophils # (Auto) 0.5 TH/MM3 Basophils # (Auto) 0.1 TH/MM3 CBC Comment DIFF FINAL Differential Comment Blood Urea Nitrogen 24 MG/DL Creatinine 0.63 MG/DL Random Glucose 198 MG/DL Calcium Level 8.3 MG/DL Phosphorus Level 2.8 MG/DL Magnesium Level 2.2 MG/DL Sodium Level 145 MEQ/L Potassium Level 3.3 MEQ/L Chloride Level 111 MEQ/L Carbon Dioxide Level 24.3 MEQ/L Anion Gap 10 MEQ/L Estimat Glomerular Filtration Rate 93 ML/MIN Imaging Last Impressions Chest X-Ray 11/05/16 0600 Signed Impressions: Service Date/Time: Saturday, November 05, 2016 03:32 - CONCLUSION: 1. Mild basilar airspace disease similar to November 03. Support apparatus in good position. Nestor Palomino MD Thyroid Ultrasound 10/31/16 0000 Signed Impressions: Service Date/Time: Monday, October 31, 2016 11:47 - CONCLUSION: Large complex mass right lobe of the thyroid. Minimally increased in size since Jacoby Torre MD FACR Brain MRI 10/30/16 0000 Signed Impressions: Service Date/Time: Sunday, October 30, 2016 11:38 - CONCLUSION: 1. Ventriculomegaly/hydrocephalus, differential includes normal pressure hydrocephalus and aqueductal stenosis. 2. Extensive nonspecific white matter changes. Edwin Jacome MD Abdomen X-Ray 10/29/16 0000 Signed Impressions: Service Date/Time: Saturday, October 29, 2016 15:32 - CONCLUSION: Negative for radiopaque foreign bodies. Jacoby Torre MD FACR Chest CT 10/28/16 1814 Signed Impressions: Service Date/Time: Friday, October 28, 2016 18:28 - CONCLUSION: 1. Abnormality on chest radiograph corresponds to a 3.4 x 3.5 cm central right hilar mass/adenopathy with associated postobstructive airspace consolidation in the inferior right upper lobe. There are at least 2 additional pulmonary nodules measuring 13 x 8 mm in the anterior right middle lobe and 8 x 8 mm in the anterior right upper lobe near the apex. 2. 3.9 x 4.3 cm heterogeneous nodule in the right thyroid gland. No significant regional cervical adenopathy. 3. Patchy bilateral lower lobe air space consolidation and diffuse ground glass opacities. Differential considerations include ARDS versus infection versus aspiration. 1. Tyler Selby MD Head CT 10/28/16 0000 Signed Impressions: Service Date/Time: Friday, October 28, 2016 20:44 - CONCLUSION: 1. No bleed or evidence of acute infarction. 2. Atrophy and chronic white matter changes. 3. Moderate ventriculomegaly, beyond that expected for the degree of atrophy. Normal pressure hydrocephalus would be in the differential. Keshav Burks MD Objective Remarks GENERAL: 71-year-old female, critically ill currently orotracheally intubated SKIN: Warm and dry. No rash HEAD: Atraumatic. Normocephalic. EYES: Pupils equal and round about 3 mm bilaterally and reactive. No scleral icterus. No injection or drainage. ENT: No nasal bleeding or discharge. Mucous membranes pink and moist. NECK: Trachea midline. No JVD. Right-sided thyromegaly/palpable mass noted CARDIOVASCULAR: Tachycardic, RR. S1, S2 no S4. Without murmur RESPIRATORY: Diminished breath sounds right upper lobe. Coarse crackles appreciated bilaterally. No wheeze GASTROINTESTINAL: Abdomen soft, non-tender, nondistended. Hepatic and splenic margins not palpable. MUSCULOSKELETAL: Extremities bilateral trace nonpitting lower extremity edema. No obvious deformities. NEUROLOGICAL: Intubated A/P Assessment and Plan Plan: Neuro/Psych: Depression/anxiety Toxic metabolic encephalopathy Ventriculomegaly History of dementia Off sedation, monitor neuro status. Check EEG, Neuro eval for encephalopathy CT brain: Moderate ventriculomegaly, beyond that expected for the degree of atrophy. MRI confirms. Neurosurgery is following- Dr. Hernandez No acute intervention Currently holding home medications clonazepam 0.5 mg twice a day and quetiapine 25 mg at night CV: Hypertension Dyslipidemia On Lopressor 50mg Q8, Norvasc 10mg daily, add Clonidine 0.1mg Q8, -Monitor HR and BP keep MAP>65mmHg Home medication for hypertension include amlodipine 10 mg by mouth daily and carvedilol 25 mg by mouth twice a day As needed hydralazine and labetalol and Nitropaste for hypertension Currently holding atorvastatin 40 mg by mouth daily for dyslipidemia. Resume when clinically indicated Pulm Acute hypoxemic respiratory failure possibly secondary to post obstructive pneumonia [facility] /02/15/34 Ventilator bundle Albuterol/hypertensive aerosols every 4 hours with albuterol aerosols every [address] chest reviewed revealed 3.4 x 2.5 right hilar mass with post discharge pneumonia in the right upper lobe. Right middle lobe mass. Pulm is following- Dr. Madison, s/p bronch with BAL 11/01. Results no growth to date Sputum culture negative to date Renal/: Hypernatremia Monitor renal function, I/O's, electrolytes replacement per protocol. Will need K replacement today. On free water 200 cc every 6 hours tube feeds GI/liver: Mild protein calorie malnutrition Continue with Glucerna 1.5 at 40 cc an hour On famotidine 20mg BID for GI prophylaxis ID: Escherichia coli UTI Postobstructive pneumonia Continue with abx per ID ( Vanco, Aztreonam, Diflucan, Flagyl) monitor for signs of infections ( Fever, WBC). Panculture today ( Blood cx x 2 sets, sputum, UA with cx if indicated) Follow up on cultures and bronchoscopy 11/01- Yeast species BC 11/04: NGTD Strep pneumonia urinary Ag negative. ID is following- Dr. Zarate Urine cx 10/28: E COLI Heme: Leukocytosis Normocytic anemia Monitor CBC. Patient has hilar mass with pulmonary nodules, also thyroid mass. Palliative care is following Endocrine: Diabetes mellitus Currently on insulin detemir 26 units twice a day. Right thyroid mass 6.8 cm/chronic On SSI high scale for glycemic control. Patient is on insulin glargine at home Prophylaxis: Pepcid via OG tube, SCDs/subcutaneous heparin CCT 30 mins Santana Browning MD Nov 06, 2016 08:08
[2016-11-06] MEDS: FAMOTIDINE 20 MG TAB PO SCH ×2 (08:17→20:40)
[2016-11-06] MEDS: LACTOBACILLUS ACIDOPHILUS TAB PO SCH ×3 (08:18→18:21)
[2016-11-06] MEDS: FLUCONAZOLE 100 MG TAB PO SCH (08:18)
[2016-11-06] MEDS: SODIUM CHLORIDE 0.9% FLUSH 10 ML FLUSH IV FLUSH SCH ×2 (08:19→20:59)
[2016-11-06] MEDS: MUPIROCIN 2% OINT 1 APPLIC/GM SYR EACH NARE SCH ×2 (08:19→20:41)
[2016-11-06] MEDS: cloNIDine HCL 0.1 MG TAB PO SCH ×3 (08:31→20:40)
[2016-11-06] MEDS: VANCOMYCIN INJ 1,500 MG in SODIUM CHLORID 0.9% 500 ML INJ 500 ML IV SCH (13:21)
[2016-11-06] MEDS: levETIRAcetam INJ 500 MG in SODIUM CHLORIDE 0.9% INJ 100 ML IV SCH (15:37)
--- NOTE | 2016-11-06 15:59 | HHI.IDPN ---
Note Infectious Disease Note Patient on the vent. Off sedation and opens. Not following commands. Thick meneses secretions. Spiking temps. WBC elevated. Admitted with respiratory distress. PAST MEDICAL HISTORY 1. Dementia. 2. Diabetes mellitus. 3. Hypertension. 4. Thyroid disease. 5. Anxiety, depression. 6. Arthritis. ALLERGIES AMOXICILLIN, PROPOXYPHENE. ANTIBIOTICS: Azactam. Diflucan. Flagyl. Vancomycin. OBJECTIVE: Vital Signs Date Time Temp Pulse Resp B/P (MAP) Pulse Ox O2 Delivery O2 Flow Rate FiO2 11/06/16 12:00 35 11/06/16 12:00 115 11/06/16 12:00 99.0 115 35 169/79 (109) 94 11/06/16 11:46 35 11/06/16 11:46 96 35 11/06/16 11:40 96 35 11/06/16 11:00 99 11/06/16 10:00 104 11/06/16 09:00 103 11/06/16 08:07 93 35 11/06/16 08:00 106 11/06/16 08:00 100.3 106 17 154/70 (98) 92 11/06/16 08:00 35 11/06/16 07:00 106 11/06/16 06:00 96 11/06/16 04:00 35 11/06/16 04:00 96 35 11/06/16 04:00 98.9 102 14 170/72 (104) 96 11/06/16 04:00 102 11/06/16 02:00 103 11/06/16 01:00 100 35 11/06/16 00:00 35 11/06/16 00:00 100.9 92 15 159/70 (99) 92 11/06/16 00:00 92 11/05/16 22:50 100 35 11/05/16 22:00 107 11/05/16 20:00 35 11/05/16 20:00 101.5 94 24 136/64 (88) 98 11/05/16 20:00 103 11/05/16 19:00 100 11/05/16 18:00 93 11/05/16 17:00 93 11/05/16 16:01 95 35 11/05/16 16:00 20 96 11/05/16 16:00 92 Microbiology Date/Time Source Procedure Growth Status 11/04/16 18:55 Blood Peripheral Aerobic Blood Culture - Preliminary NO GROWTH IN 1 DAY Resulted 11/04/16 18:55 Blood Peripheral Anaerobic Blood Culture - Preliminary NO GROWTH IN 1 DAY Resulted 11/04/16 18:45 Blood Peripheral Aerobic Blood Culture - Preliminary NO GROWTH IN 1 DAY Resulted 11/04/16 18:45 Blood Peripheral Anaerobic Blood Culture - Preliminary NO GROWTH IN 1 DAY Resulted IMAGING: Chest X-Ray 11/05/16 0600 Signed Impressions: Service Date/Time: Saturday, November 05, 2016 03:32 - CONCLUSION: 1. Mild basilar airspace disease similar to November 03. Support apparatus in good position. Nestor Palomino MD Chest X-Ray 11/05/16 0600 Signed Impressions: Service Date/Time: Saturday, November 05, 2016 03:32 - CONCLUSION: 1. Mild basilar airspace disease similar to November 03. Support apparatus in good position. Nestor Palomino MD Chest X-Ray 11/01/16 0600 Signed Impressions: Service Date/Time: October 03:56 - CONCLUSION: Cardiomegaly with bibasilar pulmonary infiltrates. Pulmonary vascular engorgement. Eric Levine Jr., MD Chest X-Ray 10/31/16 0600 Signed Impressions: Service Date/Time: Monday, October 31, 2016 02:38 - CONCLUSION: Limited study by motion artifact. Lines and tubes. Grossly clear lungs. Eric Levine Jr., MD Thyroid Ultrasound 10/31/16 0000 Signed Impressions: Service Date/Time: Monday, October 31, 2016 11:47 - CONCLUSION: Large complex mass right lobe of the thyroid. Minimally increased in size since Jacoby Torre MD FACR PHYSICAL EXAMINATION GENERAL: On the ventilator. No acute distress. NECK: Obese, fullness at the right lateral neck. LUNGS: Basilar rhonchi. HEART: Tachycardic. No audible murmurs or rubs or gallops. ABDOMEN: Obese, soft, No tenderness. EXTREMITIES: No clubbing or cyanosis or edema. SKIN: No rash. NEURO: Awake. No following commands. PSYCHE: Unable to assess. IMPRESSION 1. Bilateral pneumonia with hilar cavitary mass. The patient also has lung nodules and also a thyroid lesion and hence, potentially may have malignancy. 2. Acute respiratory failure. 3. UTI. 4. Fever and increased WBC. ? sepsis. RECOMMENDATIONS 1. Continue Vancomycin. 2. Continue aztreonam. 3. Continue Diflucan. Yeast in bronch. ? significance. 4. Continue Flagyl. 5. Monitor temperature. 6. Monitor cultures. D/W RN. Francisco Zarate MD Nov 06, 2016 15:59
--- NOTE | 2016-11-06 16:02 | PD.CONS ---
History of Present Illness Service Neurology Consult Requested By [facility] Reason for Consult confusion Primary Care Physician Phillip Ibrahim M.D. History of Present Illness 70 years old female with a medical history significant for dementia, diabetes mellitus, thyroid disease, anxiety, depression, hyperlipemia, and reactive airway disease. went into resp failure, intubated in icu. off sedation x 24 hrs per rn at bedside not following. had mri brain done a few days ago- no acutge lesion but hydrocephalus found. seen by nsx. pt unable to give any hx. case d/w ID. blodd cx'd pending. is febrile, + leuckocytosis, tachy. in sepsis. . Review of Systems Limited ROS secondary to patient's clinical condition, intubated, sedated. ROS obtained from medical records and clinical observation. . Past Family Social History Coded Allergies: propoxyphene (Unverified Allergy, Severe, 09/25/16) amoxicillin (Verified Allergy, Unknown, 10/28/16) Past Medical History Dementia Diabetes mellitus Hypertension Thyroid disease Arthritis Anxiety Depression Hyperlipidemia Reactive airway disease . Past Surgical History No surgical history. . Reported Medications Fleet Oil Enema (Mineral Oil) 118 Ml Enem 1 Ea RECTAL DIRECTED PRN Milk of Magnesia Liq (Magnesium Hydroxide) 400 Mg/5 Ml Susp 15 Ml PO DAILY PRN Biscolax Supp (Bisacodyl) 10 Mg Supp 10 Mg RECTAL DAILY PRN Carvedilol 25 Mg Tab 25 Mg PO BID Humalog Inj (Insulin Human Lispro) 1,000 Unit/10 Ml Vial 1-9 Units SQ ACHS Monistat 1 Day or Night C 1200-2 mg-% (Miconazole Nitrate Vaginal) 1,200 Mg-2 % Kit 1 Ea VAGINAL ONCE Lantus Solostar Pen Inj (Insulin Glargine) 300 Unit/3 Ml Pen 1 Units SQ Lantus Inj (Insulin Glargine) 1,000 Unit/10 Ml Vial 1 Units SQ HS Norvasc (Amlodipine Besylate) 10 Mg Tab 10 Mg PO DAILY Atorvastatin (Atorvastatin Calcium) 40 Mg Tab 40 Mg PO HS Klonopin (Clonazepam) 0.5 Mg Tab 0.5 Mg PO BID Seroquel (Quetiapine Fumarate) 25 Mg Tab 25 Mg PO DAILY Shafer (Hydrocodone-Acetaminophen) 7.5-325 mg Tab 1 Tab PO Q4H PRN Zithromax Z-Ronnie (Azithromycin) 250 Mg Dspk 250 Mg PO DIRECTED Albuterol Neb (Albuterol Sulfate) 2.5 Mg/3 Ml Neb 2.5 Mg NEB Q4HR NEB PRN . Family History Unable to obtain secondary to patient's clinical condition. Intubated, sedated. . Substance Use Unable to obtain secondary to patient's clinical condition. Information obtained from prior hospitalization/ER visits. Tobacco: None reported. Alcohol: None reported. Illicits: None reported Patient is a resident at a [facility] care facility . Review of Systems All other ROS: Unable to obtain Past Family Social History Allergies: Coded Allergies: propoxyphene (Unverified Allergy, Severe, 09/25/16) amoxicillin (Verified Allergy, Unknown, 10/28/16) Active Ordered Medications Current Medications Medications (Trade) Dose Ordered Sig/Nathan Route Start Time Stop Time Status Last Admin (NS Flush) 2 ml UNSCH PRN IV FLUSH 10/28/16 18:30 10/30/16 09:51 (NS Flush) 2 ml BID IV FLUSH 10/28/16 21:00 11/06/16 08:19 (Tylenol) 650 mg Q6H PRN PO 10/28/16 18:30 11/05/16 15:12 (Peridex 0.12% Liq) 15 ml BID@08,20 MT 10/28/16 20:00 11/06/16 08:00 Miscellaneous Information 1 Q361D XX 10/28/16 18:30 10/28/16 21:00 (Chlorhexidine 2% Cloth) Taper DAILY@04 TOP 10/29/16 04:00 10/25/17 03:59 11/06/16 03:31 (Chlorhexidine 2% Cloth) 3 pack UNSCH PRN TOP 10/28/16 18:30 Propofol 100 ml @ 2.4 mls/hr TITRATE PRN IV 10/28/16 18:30 11/05/16 06:10 Aztreonam 2000 mg/ Sodium Chloride 100 ml @ 200 mls/hr Q8H IV 10/29/16 00:00 11/06/16 15:44 (Heparin Inj) 5,000 units Q8H SQ 10/29/16 08:00 11/06/16 15:38 (fentaNYL INJ) 50 mcg Q4H PRN IV 10/29/16 02:30 11/04/16 11:33 Potassium Chloride 100 ml @ 50 mls/hr Q2H PRN IV 10/29/16 08:00 Potassium Chloride 100 ml @ 50 mls/hr Q2H PRN IV 10/29/16 08:00 (K-Lyte Cl Eff) 50 meq UNSCH PRN PO 10/29/16 08:00 11/06/16 15:43 Potassium Chloride 100 ml @ 25 mls/hr UNSCH PRN IV 10/29/16 08:00 Potassium Chloride 100 ml @ 50 mls/hr Q2H PRN IV 10/29/16 08:00 Magnesium Sulfate 4 gm/Sodium Chloride 100 ml @ 50 mls/hr UNSCH PRN IV 10/29/16 08:00 (Mag-Ox) 800 mg UNSCH PRN PO 10/29/16 08:00 Magnesium Sulfate 2 gm/Sodium Chloride 100 ml @ 50 mls/hr UNSCH PRN IV 10/29/16 08:00 (K-Phos) 2,000 mg Q4H PRN PO 10/29/16 08:00 Sodium Phosphate 30 mmol/Sodium Chloride 250 ml @ 42 mls/hr UNSCH PRN IV 10/29/16 08:00 10/29/16 10:21 (K-Phos) 2,000 mg UNSCH PRN PO/TUBE 10/29/16 08:00 Potassium Phosphate 30 mmol/ Sodium Chloride 260 ml @ 42 mls/hr UNSCH PRN IV 10/29/16 08:00 (Apresoline Inj) 10 mg Q6H PRN IV PUSH 10/30/16 15:00 11/04/16 08:38 (Tears Naturale Opth Soln) 1 drop Q8HR EACH EYE 11/01/16 22:00 11/06/16 13:21 (Bactroban Nasal 2% Oint) 1 applic Taper BID EACH NARE 11/01/16 21:00 10/28/17 20:59 11/05/16 22:25 (Albuterol Neb) 2.5 mg Q2HR NEB PRN NEB 11/01/16 15:45 (Pill Splitter) 1 ea UNSCH PRN OTHER 11/02/16 13:45 (Lactinex) 1 tab TID PO 11/03/16 18:00 11/06/16 13:21 (Flagyl) 500 mg Q8HR PO 11/03/16 14:00 11/06/16 13:21 (Diflucan) 100 mg DAILY PO 11/03/16 14:00 11/06/16 08:18 (Levemir Inj) 26 units BID@0800,2000 SQ 11/04/16 20:00 11/06/16 08:00 (Trandate Inj) 10 mg Q1HR PRN IV PUSH 11/04/16 10:45 11/06/16 03:37 (Nitroglycerin 2% Oint) 2 inch Q6HR PRN TOPICAL 11/04/16 10:45 (Free Water) VOLUME: 200 ML Q6HR NG 11/04/16 18:00 11/06/16 11:36 (Norvasc) 10 mg DAILY PO 11/05/16 09:00 11/06/16 08:18 (Lopressor) 50 mg Q8HR PO 11/05/16 14:00 11/06/16 13:21 Pharmacy Profile Note 0 ml @ 0 mls/hr UNSCH OTHER 11/05/16 12:30 (D50w (Syr) Inj) 50 ml UNSCH PRN IV PUSH 11/05/16 15:00 (Glucagon Inj) 1 mg UNSCH PRN OTHER 11/05/16 15:00 (NovoLIN R SUPPLEMENTAL SCALE) 1 Q6H SQ 11/05/16 15:00 11/06/16 15:00 (Catapres) 0.1 mg Q8HR PO 11/06/16 08:15 11/06/16 13:21 (Pepcid) 20 mg BID PO 11/06/16 21:00 Vancomycin HCl 1500 mg/Sodium Chloride 515 ml @ 250 mls/hr Q18H IV 11/06/16 13:00 11/06/16 13:21 Miscellaneous Information SPECIFIC LAB TO BE DRAWN:VANCOMYCIN TROUGH DATE TO... ONCE ONCE .XX 11/08/16 00:45 11/08/16 00:46 Levetriacetam 500 mg/Sodium Chloride 105 ml @ 420 mls/hr Q12H IV 11/06/16 15:00 11/06/16 15:37 Exam I&O / VS Vital Signs Date Time Temp Pulse Resp B/P (MAP) Pulse Ox O2 Delivery O2 Flow Rate FiO2 11/06/16 12:00 35 11/06/16 12:00 115 11/06/16 12:00 99.0 115 35 169/79 (109) 94 11/06/16 11:46 35 11/06/16 11:46 96 35 11/06/16 11:40 96 35 11/06/16 11:00 99 11/06/16 10:00 104 11/06/16 09:00 103 11/06/16 08:07 93 35 11/06/16 08:00 106 11/06/16 08:00 100.3 106 17 154/70 (98) 92 11/06/16 08:00 35 11/06/16 07:00 106 11/06/16 06:00 96 11/06/16 04:00 35 11/06/16 04:00 96 35 11/06/16 04:00 98.9 102 14 170/72 (104) 96 11/06/16 04:00 102 11/06/16 02:00 103 11/06/16 01:00 100 35 11/06/16 00:00 35 11/06/16 00:00 100.9 92 15 159/70 (99) 92 11/06/16 00:00 92 11/05/16 22:50 100 35 11/05/16 22:00 107 11/05/16 20:00 35 11/05/16 20:00 101.5 94 24 136/64 (88) 98 11/05/16 20:00 103 11/05/16 19:00 100 11/05/16 18:00 93 11/05/16 17:00 93 11/05/16 16:01 95 35 11/05/16 16:00 35 11/05/16 16:00 99.9 92 20 96 11/05/16 16:00 92 Exam Comments intubated, short, obese, awake, not following, will grimace, +blink to threat, eomi, ou 3-2mm, no ptosis, no ext movement, no clonus, planter flexor Review/Management Diagnosis/Plan: (1) Acute encephalopathy ICD Codes: G93.40 - Encephalopathy, unspecified Status: Acute Plan: likely metabolic; in sepsis at present moderate atrophy and ventriculomegaly on mri scan. wonder if she has underlying dementia? recs f/u eeg repeat mr brain w contrast mri cspine with quadriplegia labs f/u blood cx's may require csf studies; d/w ID. will f/u blood cx's first also, concern for possible underlying malignancy based on lung films (2) Acute respiratory failure requiring reintubation ICD Codes: J96.00 - Acute respiratory failure, unspecified whether with hypoxia or hypercapnia Status: Acute Plan: ccm intubated (3) Pneumonia ICD Codes: J18.9 - Pneumonia, unspecified organism Status: Acute Plan: intubated, iv abx (4) UTI (urinary tract infection) ICD Codes: N39.0 - Urinary tract infection, site not specified Status: Acute Plan: abx, ID following Jarett Sampson MD Nov 06, 2016 16:02
[2016-11-06] MEDS: ACETAMINOPHEN 325 MG TAB PO PRN (16:30)
--- NOTE | 2016-11-06 18:36 | HHI.PR ---
Subjective Remarks 70 YOWF with VDRF,Pneumonia, ? Aspiration Sedated with Fentanyl Tolerated CPAP 5 min only Low grade Fever Off sedation Neurology following MRI brain ordered Objective Vital Signs Vital Signs Date Time Temp Pulse Resp B/P (MAP) Pulse Ox O2 Delivery O2 Flow Rate FiO2 11/06/16 18:00 82 11/06/16 17:00 95 11/06/16 16:17 98 35 11/06/16 16:00 35 11/06/16 16:00 93 11/06/16 16:00 102.0 93 28 139/59 (85) 99 11/06/16 15:00 85 11/06/16 14:00 95 11/06/16 13:00 109 11/06/16 12:00 35 11/06/16 12:00 115 11/06/16 12:00 99.0 115 35 169/79 (109) 94 11/06/16 11:46 35 11/06/16 11:46 96 35 11/06/16 11:40 96 35 11/06/16 11:00 99 11/06/16 10:00 104 11/06/16 09:00 103 11/06/16 08:07 93 35 11/06/16 08:00 106 11/06/16 08:00 100.3 106 17 154/70 (98) 92 11/06/16 08:00 35 11/06/16 07:00 106 11/06/16 06:00 96 11/06/16 04:00 35 11/06/16 04:00 96 35 11/06/16 04:00 98.9 102 14 170/72 (104) 96 11/06/16 04:00 102 11/06/16 02:00 103 11/06/16 01:00 100 35 11/06/16 00:00 35 11/06/16 00:00 100.9 92 15 159/70 (99) 92 11/06/16 00:00 92 11/05/16 22:50 100 35 11/05/16 22:00 107 11/05/16 20:00 35 11/05/16 20:00 101.5 94 24 136/64 (88) 98 11/05/16 20:00 103 11/05/16 19:00 100 I/O 11/05/16 11/05/16 11/05/16 11/06/1617 9/26/17 07:00 15:00 23:00 07:00 15:00 23:00 Intake Total 1161 ml 100 ml 1226.5 ml 1116 ml 1074 ml Balance 1161 ml 100 ml 1226.5 ml 1116 ml 1074 ml Intake IV Total 327 ml 100 ml 362.5 ml 100 ml Tube Feeding 434 ml 464 ml 616 ml 474 ml Other 400 ml 400 ml 400 ml 600 ml # Voids 3 4 4 # Bowel Movements 1 2 1 Result Diagram: 11/06/1643011/06/16430 Objective Remarks GENERAL: MBMN WF, intubated, sedated SKIN: Warm and dry. HEAD: Normocephalic. EYES: No scleral icterus. No injection or drainage. NECK: Supple, trachea midline. No JVD or lymphadenopathy. CARDIOVASCULAR: Regular rate and rhythm without murmurs, gallops, or rubs. RESPIRATORY: Breath sounds equal bilaterally. No accessory muscle use. GASTROINTESTINAL: Abdomen soft, non-tender, nondistended. MUSCULOSKELETAL: No cyanosis, or edema. BACK: Nontender without obvious deformity. No CVA tenderness. A/P Assessment and Plan VDRF Pneumonia Aspiration DM Dementia Ventriculomegaly PLAN: Vent Support PRVC-AC 14, Fi02 35% Cont Abx Aerosol nebs SQ Heparin Code status DNR MRI Brain Luis Madison MD Nov 06, 2016 18:36
[2016-11-06 21:29] LABS: BACTERIA, URINE FEW /hpf; BLOOD, URINE TRACE (NEG); GLUCOSE,URINE 150 mg/dL (NEG); KETONE, URINE NEG (NEG); NITRITE,URINE NEG (NEG); PH, URINE 5.5 (5.0-8.5); SQUAMOUS EPITHELIAL CELL URINE 12 /hpf (0-5); URINE COLOR YELLOW (YELLW/STRAW)
[2016-11-06 21:30] LABS: COMMENT (UR) CATH-CULTURE IND; CULTURE IF INDICATED CATH CULTURE IND
--- NOTE | 2016-11-06 21:56 | MG ---
cc: SCOTTY PARKER Lab No: Date: 11/06/2016 Age: Sex: F Race: ELECTROENCEPHALOGRAM NUMBER [id number] Hyperventilation not performed. INDICATION A 71-year-old woman dementia, depression and normal pressure hydrocephalus. MEDICATIONS 1. Lopressor. 2. Heparin. DESCRIPTION Some diffuse slowing is seen at times to 3 Hz. Some bifrontal prominent delta waves are noted, at times slightly sharp and contoured, could be consistent with triphasic waves. Photic stimulation was performed without significant posterior driving. No major hemisphere asymmetries are noted. IMPRESSION These appear to be triphasic waves. There is some bifrontal sharply contoured theta activity which would be consistent with a severe metabolic encephalopathy. There is a slight increased proclivity for seizures with this. Clinical correlation is needed. MD YON Sibley/KK /9:35 PM /9:44 PM
[2016-11-06] MEDS ORDERED: GADODIAMIDE PF 287 MG/ML 5 ML VIAL (for RAD MRI) IVCONTRAST ONE (22:36)
--- NOTE | 2016-11-06 22:45 | RADRPT ---
EXAM DATE/TIME: 11/06/2016 21:36 [facility] COMPARISON: No previous studies available for comparison. INDICATIONS : Myelopathy. MEDICAL HISTORY : Hypertension. Osteoarthritis. Diabetes. Reactive airway disease. SURGICAL HISTORY : None. ENCOUNTER: Subsequent ACUITY: 1 day PAIN SCORE: Nonresponsive. LOCATION: neck TECHNIQUE: Multiplanar, multisequence MRI examination of the cervical spine was performed. FINDINGS: VERTEBRAE: Normal vertebral body height. Homogeneous marrow signal. ALIGNMENT: No evidence of subluxation. CORD: Normal configuration and signal. POST FOSSA: The cerebellar tonsils are normal in position. C2-C3: The thecal sac has a normal configuration. There is no evidence of disc herniation or spinal canal s tenosis. The neural foramina are patent bilaterally. C3-C4: The thecal sac has a normal configuration. There is no evidence of disc herniation or spinal canal s tenosis. The neural foramina are patent bilaterally. C4-C5: The disc is desiccated but otherwise normal. There is mild uncovertebral and facet osteoarthritis. No significant foraminal or spinal stenosis. C5-C6: The disc is desiccated and has moderate loss of height. Moderate, broad but especially right paracent ral/foraminal/lateral disc osteophyte complex is present and there is right greater left uncal verteb ral and facet osteoarthritis. There is mild to moderate spinal stenosis without cord compression. The re is severe right and mild left foraminal stenosis. C6-C7: The disc is desiccated and has moderate loss of height. There is a small, broad/diffuse disc osteophy te complex and mild to moderate bilateral uncovertebral and facet osteoarthritis. There is mild spina l stenosis without cord compression. There is moderate right and mild left foraminal stenosis. C7-T1: The thecal sac has a normal configuration. There is no evidence of disc herniation or spinal canal s tenosis. The neural foramina are patent bilaterally. A nodule measuring at least 6 cm in size is partly seen of the right lobe of the thyroid gland. CONCLUSION: 1. Multilevel degenerative changes of the cervical spine as above, especially C5/C6 and C6/C7. 2. Mild to moderate spinal stenosis and severe right foraminal stenosis at C5/C6. 3. Mild spinal stenosis and moderate right foraminal stenosis at C6/C7. 4. No cord compression or cord signal abnormality. 5. No fracture or subluxation. 6. Large nodule of the left lobe of the thyroid gland. There are also upper limits of normal bilatera l cervical lymph nodes. Keshav Burks MD on November 06, 2016 at 22:39 Board Certified Radiologist. This report was verified electronically.
--- NOTE | 2016-11-06 22:52 | RADRPT ---
EXAM DATE/TIME: 11/06/2016 21:36 [facility] COMPARISON: MRI BRAIN W/O CONTRAST, October 30, 2016, 11:38. INDICATIONS : CVA. CONTRAST: 16 cc Omniscan (gadodiamide) IV MEDICAL HISTORY : Hypertension. Osteoarthritis. Diabetes. Reactive airway disease. SURGICAL HISTORY : None. ENCOUNTER: Subsequent ACUITY: 1 day PAIN SCORE: Nonresponsive. LOCATION: cranial TECHNIQUE: Multiplanar, multisequence MRI of the brain was performed both prior to and following the administrat ion of paramagnetic contrast. FINDINGS: CEREBRUM: Moderate ventriculomegaly again noted. No evidence of midline shift, mass lesion, hemorrhage or acut e infarction. No extraaxial fluid collections are seen. The pituitary gland and suprasellar cistern are normal in configuration. There is diffuse atrophy. WHITE MATTER: Severe, chronic flair signal abnormality seen in the periventricular white matter. POSTERIOR FOSSA: The cerebellum and brainstem are intact. The 4th ventricle is midline. The cerebellopontine angle is unremarkable. The cerebellar tonsils are normal in position. DIFFUSION IMAGING: No focal areas of restricted diffusion are seen. No evidence of acute infarction. EXTRACRANIAL: The visualized portions of the orbits and paranasal sinuses are unremarkable. POST-CONTRAST: No abnormal areas of parenchymal or dural enhancement. No evidence of blood-brain barrier breakdown. CONCLUSION: 1. No change or acute abnormality demonstrated. 2. Atrophy, ventriculomegaly and chronic white matter changes are again noted. Keshav Burks MD on November 06, 2016 at 22:47 Board Certified Radiologist. This report was verified electronically.
[2016-11-07] VITALS (36 sets, daily range): BP systolic 107–171; BP diastolic 54–94; PULSE 74–107; RESP 14–40; TEMP 98.9–100.9; O2SAT 93–100
[2016-11-07] MEDS: levETIRAcetam INJ 500 MG in SODIUM CHLORIDE 0.9% INJ 100 ML IV SCH ×2 (03:00→15:55)
[2016-11-07] MEDS: CHLORHEXIDINE GLUCONATE 2 % 1 PACK (2 CLOTHS) TOP SCH (03:00)
[2016-11-07] MEDS: INSULIN NovoLIN REGULAR SUPPLEMENTAL SCALE SQ SCH ×4 (03:00→21:00)
[2016-11-07 05:51] LABS: AUTOMATED NEUTROPHIL # 10.2 TH/MM3 (1.8-7.7); BASOPHIL # 0.1 TH/MM3 (0-0.2); BASOPHIL % 0.7 % (0.0-2.0); EOSINOPHIL # 0.3 TH/MM3 (0-0.4); HEMATOCRIT 29.7 % (35.0-46.0); HEMO FLAGS DIFF FINAL; LYMPH % 14.3 % (9.0-44.0); LYMPHOCYTE # 2.1 TH/MM3 (1.0-4.8); MEAN CELL VOLUME 88.9 FL (80.0-100.0); MEAN CORPUSCULAR HEMOGLOBIN 29.4 PG (27.0-34.0); MEAN CORPUSCULAR HGB CONC 33.1 % (32.0-36.0); MONO % 12.1 % (0.0-8.0); NEUT % 70.9 % (16.0-70.0); PLATELET COUNT 276 TH/MM3 (150-450); RED BLOOD COUNT 3.34 MIL/MM3 (4.00-5.30); RED CELL DISTRIBUTION WIDTH 14.6 % (11.6-17.2); WHITE BLOOD COUNT 14.4 TH/MM3 (4.0-11.0)
[2016-11-07] MEDS: [UNRECOGNIZED DRUG - REMARK] NG SCH ×3 (06:00→17:31)
[2016-11-07] MEDS: cloNIDine HCL 0.1 MG TAB PO SCH ×3 (06:03→21:12)
[2016-11-07] MEDS: METOPROLOL TARTRATE 50 MG TAB PO SCH ×3 (06:03→21:12)
[2016-11-07] MEDS: ARTIFICIAL TEARS OPTH SOLN 15 ML BTL EACH EYE SCH ×2 (06:03→13:58)
[2016-11-07] MEDS: VANCOMYCIN INJ 1,500 MG in SODIUM CHLORID 0.9% 500 ML INJ 500 ML IV SCH (06:04)
[2016-11-07] MEDS: metroNIDAZOLE 500 MG TAB PO SCH (06:04)
--- NOTE | 2016-11-07 06:08 | RADRPT ---
EXAM DATE/TIME: 11/07/2016 04:53 [facility] COMPARISON: CHEST SINGLE AP, November 05, 2016, 3:32. INDICATIONS : Shortness of breath. MEDICAL HISTORY : Hypertension. Diabetes mellitus type II. SURGICAL HISTORY : None. ENCOUNTER: Subsequent ACUITY: 1 week PAIN SCORE: Non-responsive. LOCATION: Bilateral chest FINDINGS: A single view of the chest demonstrates endotracheal tube in good position. NG enters stomach. Basila r airspace disease slightly increased from November 05. CONCLUSION: 1. Slight increase in basilar airspace disease since November 05. Endotracheal tube and nasogastric tube unchanged. Nestor Palomino MD on November 07, 2016 at 6:06 Board Certified Radiologist. This report was verified electronically.
[2016-11-07 06:20] LABS: BICARBONATE 21.6 MEQ/L (21.0-32.0); MAGNESIUM 2.4 MG/DL (1.5-2.5); POTASSIUM 3.9 MEQ/L (3.5-5.1)
--- NOTE | 2016-11-07 07:58 | HHI.PR ---
Review/Management Diagnosis/Plan: (1) Acute encephalopathy ICD Codes: G93.40 - Encephalopathy, unspecified Status: Acute Plan: likely metabolic; in sepsis at present moderate atrophy and ventriculomegaly on mri scan. wonder if she has underlying dementia? mri brain/cspine- no cord lesion; brain unchanged recs neuro unchanged f/u eeg-triphasics, encephalopathy- iv keppra added labs f/u blood cx's may require csf studies; d/w ID. will f/u blood cx's first also, concern for possible underlying malignancy based on lung films (2) Acute respiratory failure requiring reintubation ICD Codes: J96.00 - Acute respiratory failure, unspecified whether with hypoxia or hypercapnia Status: Acute Plan: ccm intubated (3) Pneumonia ICD Codes: J18.9 - Pneumonia, unspecified organism Status: Acute Plan: intubated, iv abx (4) UTI (urinary tract infection) ICD Codes: N39.0 - Urinary tract infection, site not specified Status: Acute Plan: abx, ID following Subjective Subjective Comments No acute events reported Active Medications Current Medications Medications (Trade) Dose Ordered Sig/Nathan Route Start Time Stop Time Status Last Admin (NS Flush) 2 ml UNSCH PRN IV FLUSH 10/28/16 18:30 10/30/16 09:51 (NS Flush) 2 ml BID IV FLUSH 10/28/16 21:00 11/06/16 20:59 (Tylenol) 650 mg Q6H PRN PO 10/28/16 18:30 11/06/16 16:30 (Peridex 0.12% Liq) 15 ml BID@08,20 MT 10/28/16 20:00 11/06/16 20:59 Miscellaneous Information 1 Q361D XX 10/28/16 18:30 10/28/16 21:00 (Chlorhexidine 2% Cloth) Taper DAILY@04 TOP 10/29/16 04:00 10/25/17 03:59 11/07/16 03:00 (Chlorhexidine 2% Cloth) 3 pack UNSCH PRN TOP 10/28/16 18:30 Propofol 100 ml @ 2.4 mls/hr TITRATE PRN IV 10/28/16 18:30 11/05/16 06:10 Aztreonam 2000 mg/ Sodium Chloride 100 ml @ 200 mls/hr Q8H IV 10/29/16 00:00 11/06/16 23:48 (Heparin Inj) 5,000 units Q8H SQ 10/29/16 08:00 11/06/16 23:48 (fentaNYL INJ) 50 mcg Q4H PRN IV 10/29/16 02:30 11/04/16 11:33 Potassium Chloride 100 ml @ 50 mls/hr Q2H PRN IV 10/29/16 08:00 Potassium Chloride 100 ml @ 50 mls/hr Q2H PRN IV 10/29/16 08:00 (K-Lyte Cl Eff) 50 meq UNSCH PRN PO 10/29/16 08:00 11/06/16 15:43 Potassium Chloride 100 ml @ 25 mls/hr UNSCH PRN IV 10/29/16 08:00 Potassium Chloride 100 ml @ 50 mls/hr Q2H PRN IV 10/29/16 08:00 Magnesium Sulfate 4 gm/Sodium Chloride 100 ml @ 50 mls/hr UNSCH PRN IV 10/29/16 08:00 (Mag-Ox) 800 mg UNSCH PRN PO 10/29/16 08:00 Magnesium Sulfate 2 gm/Sodium Chloride 100 ml @ 50 mls/hr UNSCH PRN IV 10/29/16 08:00 (K-Phos) 2,000 mg Q4H PRN PO 10/29/16 08:00 Sodium Phosphate 30 mmol/Sodium Chloride 250 ml @ 42 mls/hr UNSCH PRN IV 10/29/16 08:00 10/29/16 10:21 (K-Phos) 2,000 mg UNSCH PRN PO/TUBE 10/29/16 08:00 Potassium Phosphate 30 mmol/ Sodium Chloride 260 ml @ 42 mls/hr UNSCH PRN IV 10/29/16 08:00 (Apresoline Inj) 10 mg Q6H PRN IV PUSH 10/30/16 15:00 11/04/16 08:38 (Tears Naturale Opth Soln) 1 drop Q8HR EACH EYE 11/01/16 22:00 11/07/16 06:03 (Bactroban Nasal 2% Oint) Taper BID EACH NARE 11/01/16 21:00 10/28/17 20:59 11/06/16 20:41 (Albuterol Neb) 2.5 mg Q2HR NEB PRN NEB 11/01/16 15:45 (Pill Splitter) 1 ea UNSCH PRN OTHER 11/02/16 13:45 (Lactinex) 1 tab TID PO 11/03/16 18:00 11/06/16 18:21 (Flagyl) 500 mg Q8HR PO 11/03/16 14:00 11/07/16 06:04 (Diflucan) 100 mg DAILY PO 11/03/16 14:00 11/06/16 08:18 (Levemir Inj) 26 units BID@0800,2000 SQ 11/04/16 20:00 11/06/16 20:00 (Trandate Inj) 10 mg Q1HR PRN IV PUSH 11/04/16 10:45 11/06/16 03:37 (Nitroglycerin 2% Oint) 2 inch Q6HR PRN TOPICAL 11/04/16 10:45 (Free Water) VOLUME: 200 ML Q6HR NG 11/04/16 18:00 11/07/16 06:00 (Norvasc) 10 mg DAILY PO 11/05/16 09:00 11/06/16 08:18 (Lopressor) 50 mg Q8HR PO 11/05/16 14:00 11/07/16 06:03 Pharmacy Profile Note 0 ml @ 0 mls/hr UNSCH OTHER 11/05/16 12:30 (D50w (Syr) Inj) 50 ml UNSCH PRN IV PUSH 11/05/16 15:00 (Glucagon Inj) 1 mg UNSCH PRN OTHER 11/05/16 15:00 (NovoLIN R SUPPLEMENTAL SCALE) 1 Q6H SQ 11/05/16 15:00 11/06/16 20:41 (Catapres) 0.1 mg Q8HR PO 11/06/16 08:15 11/07/16 06:03 (Pepcid) 20 mg BID PO 11/06/16 21:00 11/06/16 20:40 Vancomycin HCl 1500 mg/Sodium Chloride 515 ml @ 250 mls/hr Q18H IV 11/06/16 13:00 11/07/16 06:04 Miscellaneous Information SPECIFIC LAB TO BE DRAWN:VANCOMYCIN TROUGH DATE TO... ONCE ONCE .XX 11/08/16 00:45 11/08/16 00:46 Levetriacetam 500 mg/Sodium Chloride 105 ml @ 420 mls/hr Q12H IV 11/06/16 15:00 11/07/16 03:00 Allergies Allergies Coded Allergies propoxyphene (Unverified Allergy, Severe, 09/25/16) amoxicillin (Verified Allergy, Unknown, 10/28/16) Review of Systems All other ROS: Unable to obtain Exam I&O / VS Vital Signs Date Time Temp Pulse Resp B/P (MAP) Pulse Ox O2 Delivery O2 Flow Rate FiO2 11/07/16 06:00 97 11/07/16 04:18 100 35 11/07/16 04:00 85 11/07/16 04:00 100.9 85 33 114/56 (75) 100 11/07/16 04:00 35 11/07/16 02:00 95 11/07/16 01:57 96 40 11/07/16 00:00 87 11/07/16 00:00 98.9 87 18 171/81 (111) 100 11/07/16 00:00 35 11/06/16 23:04 100 35 11/06/16 22:00 93 11/06/16 21:30 100 100 11/06/16 20:19 99 35 11/06/16 20:00 93 11/06/16 20:00 99.4 93 17 151/64 (93) 97 11/06/16 20:00 35 11/06/16 18:00 82 11/06/16 17:00 95 11/06/16 16:17 98 35 11/06/16 16:00 35 11/06/16 16:00 93 11/06/16 16:00 102.0 93 28 139/59 (85) 99 11/06/16 15:00 85 11/06/16 14:00 95 11/06/16 13:00 109 11/06/16 12:00 35 11/06/16 12:00 115 11/06/16 12:00 99.0 115 35 169/79 (109) 94 11/06/16 11:46 35 11/06/16 11:46 96 35 11/06/16 11:40 96 35 11/06/16 11:00 99 11/06/16 10:00 104 11/06/16 09:00 103 11/06/16 08:07 93 35 11/06/16 08:00 106 11/06/16 08:00 100.3 106 17 154/70 (98) 92 11/06/16 08:00 35 Exam Comments intubated, short, obese, awake, not following, will grimace, questionable blink to threat, eomi, ou 3-2mm, no ptosis, no ext movement, no clonus, planter flexor Objective Micro and Labs Laboratory Tests Test 11/06/16 17:00 11/06/16 19:49 11/07/16 04:06 Urine Color YELLOW Urine Turbidity HAZY Urine pH 5.5 Urine Specific [place] 1.023 Urine Protein 100 Urine Glucose (UA) 150 Urine Ketones NEG Urine Occult Blood TRACE Urine Nitrite NEG Urine Bilirubin NEG Urine Urobilinogen LESS THAN 2.0 Urine Leukocyte Esterase SMALL Urine RBC 4 Urine WBC 5 Urine Squamous Epithelial Cells 12 Urine Amorphous Sediment RARE Urine Bacteria FEW Microscopic Urinalysis Comment CATH-CULTURE IND Erythrocyte Sedimentation Rate 79 Ammonia 23 Vancomycin Level Trough 26.4 White Blood Count 14.4 Red Blood Count 3.34 Hemoglobin 9.8 Hematocrit 29.7 Mean Corpuscular Volume 88.9 Mean Corpuscular Hemoglobin 29.4 Mean Corpuscular Hemoglobin Concent 33.1 Red Cell Distribution Width 14.6 Platelet Count 276 Mean Platelet Volume 8.8 Neutrophils (%) (Auto) 70.9 Lymphocytes (%) (Auto) 14.3 Monocytes (%) (Auto) 12.1 Eosinophils (%) (Auto) 2.0 Basophils (%) (Auto) 0.7 Neutrophils # (Auto) 10.2 Lymphocytes # (Auto) 2.1 Monocytes # (Auto) 1.7 Eosinophils # (Auto) 0.3 Basophils # (Auto) 0.1 CBC Comment DIFF FINAL Differential Comment Blood Urea Nitrogen 26 Creatinine 0.67 Random Glucose 78 Calcium Level 8.2 Phosphorus Level 3.1 Magnesium Level 2.4 Sodium Level 142 Potassium Level 3.9 Chloride Level 112 Carbon Dioxide Level 21.6 Anion Gap 8 Estimat Glomerular Filtration Rate 87 Date/Time Source Procedure Growth Status 11/06/16 09:05 Blood Peripheral Aerobic Blood Culture Pending Received 11/06/16 09:05 Blood Peripheral Anaerobic Blood Culture Pending Received 11/06/16 15:50 Sputum Endotracheal Gram Stain Pending Received 11/06/16 15:50 Sputum Endotracheal Sputum Culture Pending Received 11/06/16 17:00 Urine Catheterized Urine Urine Culture Pending Received 10/28/16 17:00 Other - Final Complete Jarett Sampson MD Nov 07, 2016 07:57
[2016-11-07] MEDS: FLUCONAZOLE 100 MG TAB PO SCH (08:25)
[2016-11-07] MEDS: HEPARIN SODIUM - SQ 10,000 UNITS/ML VIAL SQ SCH ×2 (08:25→15:55)
[2016-11-07] MEDS: LACTOBACILLUS ACIDOPHILUS TAB PO SCH ×3 (08:25→17:31)
[2016-11-07] MEDS: FAMOTIDINE 20 MG TAB PO SCH ×2 (08:25→21:12)
[2016-11-07] MEDS: MUPIROCIN 2% OINT 1 APPLIC/GM SYR EACH NARE SCH ×2 (08:26→21:12)
[2016-11-07] MEDS: AZTREONAM INJ 2,000 MG in SODIUM CHLORIDE 0.9% INJ 100 ML IV SCH ×2 (08:26→15:55)
[2016-11-07] MEDS: SODIUM CHLORIDE 0.9% FLUSH 10 ML FLUSH IV FLUSH SCH ×2 (08:26→21:12)
[2016-11-07] MEDS: CHLORHEXIDINE 0.12% (ORAL KIT) 15 ML CUP MT SCH (08:26)
[2016-11-07] MEDS: INSULIN DETEMIR 100 UNITS/ML VIAL SQ SCH ×2 (08:40→21:26)
[2016-11-07] MEDS: RESP: ALBUTEROL 2.5 MG/3 ML NEB (PRN) NEB (10:31)
--- NOTE | 2016-11-07 12:54 | HHI.IDPN ---
Note Infectious Disease Note Patient on the vent. Off sedation and opens eyes. Not following commands. Thick meneses secretions. Temp elevated. WBC lower. PAST MEDICAL HISTORY 1. Dementia. 2. Diabetes mellitus. 3. Hypertension. 4. Thyroid disease. 5. Anxiety, depression. 6. Arthritis. ALLERGIES AMOXICILLIN, PROPOXYPHENE. ANTIBIOTICS: Azactam. Diflucan. Flagyl. Vancomycin. OBJECTIVE: Vital Signs Date Time Temp Pulse Resp B/P (MAP) Pulse Ox O2 Delivery O2 Flow Rate FiO2 11/06/16 12:00 35 11/06/16 12:00 115 11/06/16 12:00 99.0 115 35 169/79 (109) 94 11/06/16 11:46 35 11/06/16 11:46 96 35 11/06/16 11:40 96 35 11/06/16 11:00 99 11/06/16 10:00 104 11/06/16 09:00 103 11/06/16 08:07 93 35 11/06/16 08:00 106 11/06/16 08:00 100.3 106 17 154/70 (98) 92 11/06/16 08:00 35 11/06/16 07:00 106 11/06/16 06:00 96 11/06/16 04:00 35 11/06/16 04:00 96 35 11/06/16 04:00 98.9 102 14 170/72 (104) 96 11/06/16 04:00 102 11/06/16 02:00 103 11/06/16 01:00 100 35 11/06/16 00:00 35 11/06/16 00:00 100.9 92 15 159/70 (99) 92 11/06/16 00:00 92 11/05/16 22:50 100 35 11/05/16 22:00 107 11/05/16 20:00 35 11/05/16 20:00 101.5 94 24 136/64 (88) 98 11/05/16 20:00 103 11/05/16 19:00 100 11/05/16 18:00 93 11/05/16 17:00 93 11/05/16 16:01 95 35 11/05/16 16:00 20 96 11/05/16 16:00 92 Laboratory Tests Test 11/06/16 04:31 11/06/16 19:49 11/07/16 04:06 White Blood Count 15.6 TH/MM3 14.4 TH/MM3 Red Blood Count 3.69 MIL/MM3 3.34 MIL/MM3 Hemoglobin 11.0 GM/DL 9.8 GM/DL Hematocrit 32.8 % 29.7 % Mean Corpuscular Volume 89.0 FL 88.9 FL Mean Corpuscular Hemoglobin 29.8 PG 29.4 PG Mean Corpuscular Hemoglobin Concent 33.5 % 33.1 % Red Cell Distribution Width 15.0 % 14.6 % Platelet Count 275 TH/MM3 276 TH/MM3 Mean Platelet Volume 8.8 FL 8.8 FL Neutrophils (%) (Auto) 70.2 % 70.9 % Lymphocytes (%) (Auto) 14.9 % 14.3 % Monocytes (%) (Auto) 11.1 % 12.1 % Eosinophils (%) (Auto) 3.0 % 2.0 % Basophils (%) (Auto) 0.8 % 0.7 % Neutrophils # (Auto) 11.0 TH/MM3 10.2 TH/MM3 Lymphocytes # (Auto) 2.3 TH/MM3 2.1 TH/MM3 Monocytes # (Auto) 1.7 TH/MM3 1.7 TH/MM3 Eosinophils # (Auto) 0.5 TH/MM3 0.3 TH/MM3 Basophils # (Auto) 0.1 TH/MM3 0.1 TH/MM3 CBC Comment DIFF FINAL DIFF FINAL Differential Comment Erythrocyte Sedimentation Rate 79 mm/hr Laboratory Tests Test 11/06/16 04:31 11/06/16 19:49 11/07/16 04:06 Blood Urea Nitrogen 24 MG/DL 26 MG/DL Creatinine 0.63 MG/DL 0.67 MG/DL Random Glucose 198 MG/DL 78 MG/DL Calcium Level 8.3 MG/DL 8.2 MG/DL Phosphorus Level 2.8 MG/DL 3.1 MG/DL Magnesium Level 2.2 MG/DL 2.4 MG/DL Sodium Level 145 MEQ/L 142 MEQ/L Potassium Level 3.3 MEQ/L 3.9 MEQ/L Chloride Level 111 MEQ/L 112 MEQ/L Carbon Dioxide Level 24.3 MEQ/L 21.6 MEQ/L Anion Gap 10 MEQ/L 8 MEQ/L Estimat Glomerular Filtration Rate 93 ML/MIN 87 ML/MIN Total Creatine Kinase 34 U/L C-Reactive Protein 15.00 MG/DL Vitamin B12 Level 1117 PG/ML Ammonia 23 MCMOL/L Microbiology Date/Time Source Procedure Growth Status 11/06/16 09:05 Blood Peripheral Aerobic Blood Culture - Preliminary NO GROWTH IN 1 DAY Resulted 11/06/16 09:05 Blood Peripheral Anaerobic Blood Culture - Preliminary NO GROWTH IN 1 DAY Resulted 11/06/16 09:00 Blood Peripheral Aerobic Blood Culture - Preliminary NO GROWTH IN 1 DAY Resulted 11/06/16 09:00 Blood Peripheral Anaerobic Blood Culture - Preliminary NO GROWTH IN 1 DAY Resulted 11/04/16 18:55 Blood Peripheral Aerobic Blood Culture - Preliminary NO GROWTH IN 3 DAYS Resulted 11/04/16 18:55 Blood Peripheral Anaerobic Blood Culture - Preliminary NO GROWTH IN 3 DAYS Resulted 11/04/16 18:45 Blood Peripheral Aerobic Blood Culture - Preliminary NO GROWTH IN 3 DAYS Resulted 11/04/16 18:45 Blood Peripheral Anaerobic Blood Culture - Preliminary NO GROWTH IN 3 DAYS Resulted 11/06/16 15:50 Sputum Endotracheal Gram Stain - Final Resulted 11/06/16 15:50 Sputum Endotracheal Sputum Culture Pending Resulted 11/06/16 17:00 Urine Catheterized Urine Urine Culture Pending Received IMAGING: Chest X-Ray 11/07/16 0000 Signed Impressions: Service Date/Time: Monday, November 07, 2016 04:53 - CONCLUSION: 1. Slight increase in basilar airspace disease since November 05. Endotracheal tube and nasogastric tube unchanged. Nestor Palomino MD Cervical Spine MRI 11/06/16 0000 Signed Impressions: Service Date/Time: Sunday, November 06, 2016 21:36 - CONCLUSION: 1. Multilevel degenerative changes of the cervical spine as above, especially C5/ C6 and C6/C7. 2. Mild to moderate spinal stenosis and severe right foraminal stenosis at C5/C6. 3. Mild spinal stenosis and moderate right foraminal stenosis at C6/C7. 4. No cord compression or cord signal abnormality. 5. No fracture or subluxation. 6. Large nodule of the left lobe of the thyroid gland. There are also upper limits of normal bilateral cervical lymph nodes. Keshav Burks MD Brain MRI 11/06/16 0000 Signed Impressions: Service Date/Time: Sunday, November 06, 2016 21:36 - CONCLUSION: 1. No change or acute abnormality demonstrated. 2. Atrophy, ventriculomegaly and chronic white matter changes are again noted. Keshav Burks MD Chest X-Ray 11/05/16599 Signed Impressions: Service Date/Time: Saturday, November 05, 2016 03:32 - CONCLUSION: 1. Mild basilar airspace disease similar to November 03. Support apparatus in good position. Nestor Palomino MD Chest X-Ray 11/05/16599 Signed Impressions: Service Date/Time: Saturday, November 05, 2016 03:32 - CONCLUSION: 1. Mild basilar airspace disease similar to November 03. Support apparatus in good position. Nestor Palomino MD Chest X-Ray 11/05/16599 Signed Impressions: Service Date/Time: Saturday, November 05, 2016 03:32 - CONCLUSION: 1. Mild basilar airspace disease similar to November 03. Support apparatus in good position. Nestor Palomino MD Chest X-Ray 11/01/16599 Signed Impressions: Service Date/Time: October 03:56 - CONCLUSION: Cardiomegaly with bibasilar pulmonary infiltrates. Pulmonary vascular engorgement. Eric Levine Jr., MD PHYSICAL EXAMINATION GENERAL: On the ventilator. No acute distress. NECK: Obese, fullness at the right lateral neck. LUNGS: Basilar rhonchi same. HEART: Nl S1S2, No audible murmurs or rubs or gallops. ABDOMEN: Obese, soft, No tenderness. EXTREMITIES: No clubbing or cyanosis or edema. SKIN: No rash. NEURO: Awake. Not following commands. PSYCHE: Unable to assess. IMPRESSION 1. Bilateral pneumonia with hilar cavitary mass. The patient also has lung nodules and also a thyroid lesion and hence, potentially may have malignancy. 2. Acute respiratory failure. 3. UTI. 4. Fever and increased WBC. ? sepsis. Cultures negative. RECOMMENDATIONS 1. Continue Vancomycin. 2. Continue aztreonam. 3. Continue Diflucan. Yeast in bronch. ? significance. 4. Stop Flagyl. 5. Monitor temperature. 6. Monitor cultures. Francisco Zarate MD Nov 07, 2016 12:54
--- NOTE | 2016-11-07 13:06 | HHI.CCPN ---
Subjective Remarks/Hospital Course HPI 70-year-old detention resident with a medical history significant for dementia, diabetes mellitus, hyperlipidemia, reactive airway disease who was found to have altered mental status at the detention for which EMS was called. Patient was noted to have O2 sats in the 70s. She was very apneic with her head slumped down. Paramedics report of having to hold her head up to have her breathe with the nebulizer treatment in place. Patient was given Solu- Medrol 125 mg IV and 4 nebulizer treatments prior to arrival in the ER for documentation. On arrival in the ER patient was extremely lethargic however was reportedly able to answer some questions. Patient was felt not to be able to protect her airway as well as very hypoxic and hence was intubated by ER physician and placed on mechanical ventilation. Chest x-ray in the ER showed bilateral infiltrates and possible cavitary lesion. She was accepted for admission by critical care medicine service. CT chest was ordered by ER physician. When I evaluated the patient in the ER she was sedated with propofol , orally intubated on mechanical ventilation. History was obtained by reviewing records and discussion with ER physician. 10/29 Patient is sedated with Diprivan and intubated. Afebrile. 10/30 Patient remains sedated and intubated. T:99.7 last night. 10/31: Intubated sedated. CT reviewed and discussed with Dr. Madison. Will consider Bronch. Also check thyroid US and possible biopsy. Check thyroid studies. Also consult palliative care as patient has underlying dementia with NPH and possible malignancy. 11/01: Tmax 100.3. Plan for bronchoscopy at 3:00 today. Noted thyroid masses chronic/since 2011. Tolerating tube feeding. Positive BM. 11/02: Tmax 100.1. Status post bronchoscopy yesterday with removal of mucous plugging. Tolerating tube feeds. Positive BM. Weaning propofol sedation today. 11/03: Tmax 100.6. Noted elevated leukocytosis. Weaning sedation. Positive BM. Tolerate tube feeding. 11/04: Afebrile. UA negative. C. difficile pending. 4 bowel movement overnight. Tolerating tube feeding. No new issues. 11/05 Patient is sedated with Diprivan and intubated. T:100.7. Given Labetalol 10mg IV x3 for hypertension overnight. 11/06 No events overnight. Off sedation. T: 101.5 last night. Subjective 11/07: Tmax 102. Currently 100.6. Continues off sedation. Eyes are open to voice but not falling commands. Noted MRI brain unchanged. MRI C-spine revealed no cord compression or cord abnormality's. Severe C5/6 right foraminal narrowing Objective Vital Signs Date Time Temp Pulse Resp B/P (MAP) Pulse Ox O2 Delivery O2 Flow Rate FiO2 11/07/16 12:00 97 11/07/16 12:00 35 11/07/16 12:00 100.6 14 139/64 (89) 98 Intake and Output 11/07/16 11/07/16 11/08/16 08:00 16:00 00:00 Intake Total 822 ml 600 ml Balance 822 ml 600 ml Result Diagram: 11/07/16 0406 11/07/16 0406 Other Results Microbiology Date/Time Source Procedure Growth Status 11/06/16 09:05 Blood Peripheral Aerobic Blood Culture - Preliminary NO GROWTH IN 1 DAY Resulted 11/06/16 09:05 Blood Peripheral Anaerobic Blood Culture - Preliminary NO GROWTH IN 1 DAY Resulted 11/06/16 15:50 Sputum Endotracheal Gram Stain - Final Resulted 11/06/16 15:50 Sputum Endotracheal Sputum Culture Pending Resulted 11/06/16 17:00 Urine Catheterized Urine Urine Culture Pending Received 10/28/16 17:00 Other - Final Complete Imaging Last Impressions Chest X-Ray 11/07/16 0000 Signed Impressions: Service Date/Time: Monday, November 07, 2016 04:53 - CONCLUSION: 1. Slight increase in basilar airspace disease since November 05. Endotracheal tube and nasogastric tube unchanged. Nestor Palomino MD Cervical Spine MRI 11/06/16 0000 Signed Impressions: Service Date/Time: Sunday, November 06, 2016 21:36 - CONCLUSION: 1. Multilevel degenerative changes of the cervical spine as above, especially C5/ C6 and C6/C7. 2. Mild to moderate spinal stenosis and severe right foraminal stenosis at C5/C6. 3. Mild spinal stenosis and moderate right foraminal stenosis at C6/C7. 4. No cord compression or cord signal abnormality. 5. No fracture or subluxation. 6. Large nodule of the left lobe of the thyroid gland. There are also upper limits of normal bilateral cervical lymph nodes. Keshav Burks MD Brain MRI 11/06/16 0000 Signed Impressions: Service Date/Time: Sunday, November 06, 2016 21:36 - CONCLUSION: 1. No change or acute abnormality demonstrated. 2. Atrophy, ventriculomegaly and chronic white matter changes are again noted. Keshav Burks MD Thyroid Ultrasound 10/31/16 0000 Signed Impressions: Service Date/Time: Monday, October 31, 2016 11:47 - CONCLUSION: Large complex mass right lobe of the thyroid. Minimally increased in size since Jacoby Torre MD FACR Abdomen X-Ray 10/29/16 0000 Signed Impressions: Service Date/Time: Saturday, October 29, 2016 15:32 - CONCLUSION: Negative for radiopaque foreign bodies. Jacoby Torre MD FACR Chest CT 10/28/161813 Signed Impressions: Service Date/Time: Friday, October 28, 2016 18:28 - CONCLUSION: 1. Abnormality on chest radiograph corresponds to a 3.4 x 3.5 cm central right hilar mass/adenopathy with associated postobstructive airspace consolidation in the inferior right upper lobe. There are at least 2 additional pulmonary nodules measuring 13 x 8 mm in the anterior right middle lobe and 8 x 8 mm in the anterior right upper lobe near the apex. 2. 3.9 x 4.3 cm heterogeneous nodule in the right thyroid gland. No significant regional cervical adenopathy. 3. Patchy bilateral lower lobe air space consolidation and diffuse ground glass opacities. Differential considerations include ARDS versus infection versus aspiration. 1. Tyler Selby MD Head CT 10/28/16 0000 Signed Impressions: Service Date/Time: Friday, October 28, 2016 20:44 - CONCLUSION: 1. No bleed or evidence of acute infarction. 2. Atrophy and chronic white matter changes. 3. Moderate ventriculomegaly, beyond that expected for the degree of atrophy. Normal pressure hydrocephalus would be in the differential. Keshav Burks MD Objective Remarks GENERAL: 71-year-old female, critically ill currently orotracheally intubated SKIN: Warm and dry. No rash well-perfused HEAD: Atraumatic. Normocephalic. EYES: Pupils equal and round about 3 mm bilaterally and reactive. No scleral icterus. No injection or drainage. ENT: No nasal bleeding or discharge. Mucous membranes pink and moist. NECK: Trachea midline. No JVD. Right-sided thyromegaly/palpable mass noted CARDIOVASCULAR: Tachycardic, RR. S1, S2 no S4. Without murmur RESPIRATORY: Diminished breath sounds right upper lobe. Coarse crackles appreciated bilaterally. No wheeze GASTROINTESTINAL: Abdomen soft, non-tender, nondistended. Hepatic and splenic margins not palpable. MUSCULOSKELETAL: Extremities bilateral trace nonpitting lower extremity edema. No obvious deformities. NEUROLOGICAL: Positive gag. Positive corneal reflex. Not following commands upper or lower extremity. Upward toes. A/P Assessment and Plan Plan: Neuro/Psych: Depression/anxiety Toxic metabolic encephalopathy Ventriculomegaly History of dementia Off sedation, monitor neuro status. EEG 11/06 revealed triphasic sway/diffuse sharp waves likely moderate encephalopathy cannot rule out proclivity of seizure Neuro eval for encephalopathy with Dr. Sampson noted CT brain: Moderate ventriculomegaly, beyond that expected for the degree of atrophy. MRI confirms. Neurosurgery is following- Dr. Hernandez No acute intervention Repeat MRI brain 11/06 stable for ventriculomegaly. No other acute findings Currently holding home medications clonazepam 0.5 mg twice a day and quetiapine 25 mg at night .On levetiracetam 500 mg IV twice a day per neurology's EEG above As needed fentanyl 50 every 8 hours when necessary pain CV: Hypertension Dyslipidemia On Lopressor 50mg Q8, amlodipine 10mg daily, add Clonidine 0.1mg Q8, -Monitor HR and BP keep MAP>65mmHg Home medication for hypertension include amlodipine 10 mg by mouth daily and carvedilol 25 mg by mouth twice a day As needed hydralazine and labetalol and Nitropaste for hypertension Currently holding atorvastatin 40 mg by mouth daily for dyslipidemia. Resume when clinically indicated Pulm Acute hypoxemic respiratory failure possibly secondary to post obstructive pneumonia Squamous cell carcinoma along [facility] 14/02/15/34 Ventilator bundle Albuterol/ipratropium aerosols every 6 hours with albuterol aerosols every 2 hours. Dyspnea. At 3% saline aerosols every 6 hours [address] chest reviewed revealed 3.4 x 2.5 right hilar mass with post discharge pneumonia in the right upper lobe. Right middle lobe mass. Pulm is following- Dr. Madison, s/p bronch with BAL 11/01. Results no growth to date Sputum culture negative to date. Cytology positive (squamous cell carcinoma Renal/: Hypernatremia - resolved Monitor renal function, I/O's, electrolytes replacement per protocol. On free water 200 cc every 6 hours tube feeds GI/liver: Mild protein calorie malnutrition Continue with Glucerna 1.5 at 40 cc an hour On famotidine 20mg BID for GI prophylaxis ID: Escherichia coli UTI Postobstructive pneumonia Continue with abx per ID ( Vancomycin, Aztreonam, fluconazole) monitor for signs of infections ( Fever, WBC). Possibly will need lumbar puncture. Discuss anxiety Follow up on cultures and bronchoscopy 11/01- Yeast species BC 11/04: NGTD Blood cultures 2 - 11/06 - pending - Recheck sputum today Strep pneumonia urinary Ag negative. ID is following- Dr. 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 Patient has hilar mass with pulmonary nodules, also thyroid mass. Palliative care is following Endocrine: Diabetes mellitus Currently on insulin detemir 26 units twice a day. Right thyroid mass 6.8 cm/chronic On SSI high scale Novulin R for glycemic control. Patient is on insulin glargine at home Prophylaxis: Famotidine 20 mg twice a day via OG tube, SCDs/subcutaneous heparin CCT 30 mins Niraj Malloy MD Nov 07, 2016 13:05
[2016-11-07] MEDS: RESP: ALBUTEROL 2.5 MG/IPRATROPIUM 0.5 MG NEB (SCH) NEB ×2 (15:42→20:33)
[2016-11-07] MEDS: RESP: SODIUM CHLORIDE 3% 4 ML NEB NEB SCH ×2 (15:42→20:33)
--- NOTE | 2016-11-07 15:43 | HHI.HCPN ---
Palliative care received call from guardian [place] regarding patient's medical records for lay out inspector. Explained we cannot release medical records until a patient is discharged. In further conversation appears lay out inspector is requesting a letter regarding patient's condition/prognosis before [facility] is able to make decisions. Explained palliative care [employer] will follow-up with patient and medical team then provide [place] with an update and assist where able. Palliative care will continue to follow throughout hospitalization. Leticia Levine, DIRECTOR IT PROJECT Nov 07, 2016 15:43
--- NOTE | 2016-11-07 16:04 | HHI.HCPN ---
Reason for visit a. To assist with evaluation and management of symptoms including: Respiratory distress, Debility. b. To assist medical decision maker(s) with: better understanding of current medical conditions; weighing benefits/burdens of medical treatment options; making medical treatment decisions. Subjective/Interval History Ms Dalton is a 70 year old female with a medical history of diabetes mellitus, dementia, thyroid disease, anxiety, depression and hyperlipemia, and reactive airway disease. Patient presented to the ED 10/28/16 via EMS after complaining of shortness of breath and intubated due to acute hypoxemic respiratory failure. She has failed all attempts at vent weaning and remains intubated. During her hospitalization she was diagnosed with normal pressure hydrocephalus/ moderate ventriculomegaly, pulmonary nodules concerning for malignancy, now with cytology confirming squamous cell carcinoma, severe sepsis, suspected aspiration pneumonia and thyroid mass. Palliative care consulted for further clarifications of goals of care given the above. Her care is complicated by the fact that she has a guardian/logistics service representative from [place] on [facility], [place], who has been working with the piano mechanic apprentice regarding patient's goals of care. Prior to making a decision to withdraw from life support, the piano mechanic apprentice is requesting a letter from the covering physicians certifying that she is hospice appropriate and would benefit from palliative rather than aggressive treatment. Workup is in progress to ascertain patient's prognosis prior to providing that information to the piano mechanic apprentice. Clinical findings: * Radiology - chest x-ray shows slight increase in basilar airspace disease since 11/05. Brain MRI shows no change or acute abnormality demonstrated, atrophy, ventriculomegaly and chronic white matter changes are again noted. Cervical spine MRI shows multilevel degenerative changes of the cervical spine especially C5/C6 and C6/C7. Mild to moderate spinal stenosis and severe right foraminal stenosis at C5/C6. Mild spinal stenosis and moderate right foraminal stenosis at C6/C7. No cord compression or cord signal abnormality. No fracture or subluxation. Large nodule of the left lobe of the thyroid gland. There are also upper limits of normal bilateral cervical lymph nodes. * Pathology - bronchoalveolar lavage is positive for squamous cell carcinoma. * Microbiology - sputum sample growing gram-negative rods in a preliminary sputum culture. Patient seen in ICU today, intubated, mechanically ventilated. Sedation weaned off and stopped overnight on 11/05. She remains off sedation. Patient does open eyes to voice but does not follow commands. Case discussed with bedside RN. . Family/friend interactions Spoke with guardian, [place], and clarified the requirements of the piano mechanic apprentice regarding this patient. Per that discussion [place] stated that the piano mechanic apprentice wants to know if to physicians will certify that this patient meets hospice criteria and should be treated palliatively rather than aggressively. This was discussed with Dr. Malloy who wishes to consult with neurology for their opinion prior to certifying that. Advance Directives Living Will: Never completed Health Care Surrogate: Never completed Durable Power of [employer]: Never completed Advance Directive Specifics Health Care Surrogate(s): Patient has a court appointed guardian, [place] [facility] - [place]. . Objective Vital Signs Date Time Temp Pulse Resp B/P (MAP) Pulse Ox O2 Delivery O2 Flow Rate FiO2 11/07/16 14:00 107 11/07/16 12:00 97 11/07/16 12:00 35 11/07/16 12:00 100.6 97 14 139/64 (89) 98 11/07/16 10:00 95 11/07/16 09:06 35 11/07/16 09:05 35 11/07/16 08:25 35 11/07/16 08:25 35 11/07/16 08:25 96 35 11/07/16 08:15 96 35 11/07/16 08:00 35 11/07/16 08:00 100.5 84 26 139/65 (89) 98 11/07/16 08:00 84 11/07/16 06:00 97 11/07/16 04:18 100 35 11/07/16 04:00 85 11/07/16 04:00 100.9 85 33 114/56 (75) 100 11/07/16 04:00 35 11/07/16 02:00 95 11/07/16 01:57 96 40 11/07/16 00:00 87 11/07/16 00:00 98.9 87 18 171/81 (111) 100 11/07/16 00:00 35 11/06/16 23:04 100 35 11/06/16 22:00 93 11/06/16 21:30 100 100 11/06/16 20:19 99 35 11/06/16 20:00 93 11/06/16 20:00 99.4 93 17 151/64 (93) 97 11/06/16 20:00 35 11/06/16 18:00 82 11/06/16 17:00 95 11/06/16 16:17 98 35 11/06/16 16:00 35 11/06/16 16:00 93 11/06/16 16:00 102.0 93 28 139/59 (85) 99 Intake & Output 11/07/16 11/07/16 07:00 19:00 Intake Total 822 ml 600 ml Balance 822 ml 600 ml Intake IV Total 200 ml 600 ml Tube Feeding 222 ml Other 400 ml # Voids 4 # Bowel Movements 3 Physical Exam CONSTITUTIONAL/GENERAL: This is an elderly, ill looking patient, in no acute distress. TUBES/LINES/DRAINS:PIV, ETT, OGT, Jang catheter, SCDs EYES: Pupils equal and round and reactive. No scleral icterus. No injection or drainage. Fundi not examined. ENT: Nose without bleeding or purulent drainage. Orally intubated. NECK: Trachea midline. Supple, nontender. CARDIOVASCULAR: Regular rate and rhythm without murmurs, gallops, or rubs. No JVD. Peripheral pulses symmetric. RESPIRATORY/CHEST: Symmetric, unlabored respirations. Rhonchi to auscultation. Breath sounds equal bilaterally. GASTROINTESTINAL: Abdomen soft, round, large. No guarding. Bowel sounds present. GENITOURINARY: Without palpable bladder distension. Jang catheter in place. MUSCULOSKELETAL: Extremities without clubbing, cyanosis. Edema to bilateral extremities. No mottling or clubbing. NEUROLOGICAL: Intubated and sedated. Not following commands. PSYCHIATRIC:Unable to assess, patient intubated, not sedated, opens eyes. . Diagnostic Tests Laboratory Laboratory Tests Test 11/05/16 04:36 11/05/16 09:18 11/06/16 04:31 11/06/16 17:00 White Blood Count 16.1 TH/MM3 (4.0-11.0) 15.6 TH/MM3 (4.0-11.0) Red Blood Count 3.75 MIL/MM3 (4.00-5.30) 3.69 MIL/MM3 (4.00-5.30) Hemoglobin 11.1 GM/DL (11.6-15.3) 11.0 GM/DL (11.6-15.3) Hematocrit 33.9 % (35.0-46.0) 32.8 % (35.0-46.0) Mean Corpuscular Volume 90.3 FL (80.0-100.0) 89.0 FL (80.0-100.0) Mean Corpuscular Hemoglobin 29.5 PG (27.0-34.0) 29.8 PG (27.0-34.0) Mean Corpuscular Hemoglobin Concent 32.7 % (32.0-36.0) 33.5 % (32.0-36.0) Red Cell Distribution Width 15.1 % (11.6-17.2) 15.0 % (11.6-17.2) Platelet Count 285 TH/MM3 (150-450) 275 TH/MM3 (150-450) Mean Platelet Volume 8.6 FL (7.0-11.0) 8.8 FL (7.0-11.0) Neutrophils (%) (Auto) 72.3 % (16.0-70.0) 70.2 % (16.0-70.0) Lymphocytes (%) (Auto) 14.1 % (9.0-44.0) 14.9 % (9.0-44.0) Monocytes (%) (Auto) 9.4 % (0.0-8.0) 11.1 % (0.0-8.0) Eosinophils (%) (Auto) 3.4 % (0.0-4.0) 3.0 % (0.0-4.0) Basophils (%) (Auto) 0.8 % (0.0-2.0) 0.8 % (0.0-2.0) Neutrophils # (Auto) 11.6 TH/MM3 (1.8-7.7) 11.0 TH/MM3 (1.8-7.7) Lymphocytes # (Auto) 2.3 TH/MM3 (1.0-4.8) 2.3 TH/MM3 (1.0-4.8) Monocytes # (Auto) 1.5 TH/MM3 (0-0.9) 1.7 TH/MM3 (0-0.9) Eosinophils # (Auto) 0.6 TH/MM3 (0-0.4) 0.5 TH/MM3 (0-0.4) Basophils # (Auto) 0.1 TH/MM3 (0-0.2) 0.1 TH/MM3 (0-0.2) CBC Comment DIFF FINAL DIFF FINAL Differential Comment Blood Urea Nitrogen 24 MG/DL (7-18) 24 MG/DL (7-18) Creatinine 0.71 MG/DL (0.50-1.00) 0.63 MG/DL (0.50-1.00) Random Glucose 255 MG/DL (74-106) 198 MG/DL (74-106) Calcium Level 8.2 MG/DL (8.5-10.1) 8.3 MG/DL (8.5-10.1) Phosphorus Level 3.8 MG/DL (2.5-4.9) 2.8 MG/DL (2.5-4.9) Magnesium Level 2.3 MG/DL (1.5-2.5) 2.2 MG/DL (1.5-2.5) Sodium Level 144 MEQ/L (136-145) 145 MEQ/L (136-145) Potassium Level 3.6 MEQ/L (3.5-5.1) 3.3 MEQ/L (3.5-5.1) Chloride Level 110 MEQ/L (98-107) 111 MEQ/L (98-107) Carbon Dioxide Level 22.8 MEQ/L (21.0-32.0) 24.3 MEQ/L (21.0-32.0) Anion Gap 11 MEQ/L (5-15) 10 MEQ/L (5-15) Estimat Glomerular Filtration Rate 81 ML/MIN (>89) 93 ML/MIN (>89) Blood Gas Puncture Site RT RADIAL Blood Gas Patient Temperature 98.6 Blood Gas HCO3 21 mmol/L (22-26) Blood Gas Base Excess -2.2 mmol/L (-2-2) Blood Gas Oxygen Saturation 91 % (90-100) Arterial Blood pH 7.44 (7.380-7.420) Arterial Blood Partial Pressure CO2 32 mmHg (38-42) Arterial Blood Partial Pressure O2 66 mmHg (61-120) Arterial Blood Oxygen Content 13.4 Vol % (12.0-20.0) Arterial Blood Carboxyhemoglobin 1.6 % (0-4) Arterial Blood Methemoglobin 1.3 % (0-2) Blood Gas Hemoglobin 10.5 G/DL (12.0-16.0) Oxygen Delivery Device VENTILATOR Blood Gas Ventilator Setting SEE COMMENTS Blood Gas Inspired Oxygen 35 % Total Creatine Kinase 34 U/L (26-192) C-Reactive Protein 15.00 MG/DL (0.00-0.30) Vitamin B12 Level 1117 PG/ML (193-986) Urine Color YELLOW (YELLW/STRAW) Urine Turbidity HAZY (CLEAR) Urine pH 5.5 (5.0-8.5) Urine Specific [place] 1.023 (1.002-1.035) Urine Protein 100 mg/dL (NEG-TRACE) Urine Glucose (UA) 150 mg/dL (NEG) Urine Ketones NEG mg/dL (NEG) Urine Occult Blood TRACE (NEG) Urine Nitrite NEG (NEG) Urine Bilirubin NEG (NEG) Urine Urobilinogen LESS THAN 2.0 MG/DL (LESS Urine Leukocyte Esterase SMALL (NEG) Urine RBC 4 /hpf (0-3) Urine WBC 5 /hpf (0-5) Urine Squamous Epithelial Cells 12 /hpf (0-5) Urine Amorphous Sediment RARE Urine Bacteria FEW /hpf (NONE) Microscopic Urinalysis Comment CATH-CULTURE IND Test 11/06/16 19:49 11/07/16 04:06 Erythrocyte Sedimentation Rate 79 mm/hr (0-30) Ammonia 23 MCMOL/L (11-32) Vancomycin Level Trough 26.4 MCG/ML (5.0-10.0) Rapid Plasma Reagin NON-REACTIVE (NON-REACTVE) White Blood Count 14.4 TH/MM3 (4.0-11.0) Red Blood Count 3.34 MIL/MM3 (4.00-5.30) Hemoglobin 9.8 GM/DL (11.6-15.3) Hematocrit 29.7 % (35.0-46.0) Mean Corpuscular Volume 88.9 FL (80.0-100.0) Mean Corpuscular Hemoglobin 29.4 PG (27.0-34.0) Mean Corpuscular Hemoglobin Concent 33.1 % (32.0-36.0) Red Cell Distribution Width 14.6 % (11.6-17.2) Platelet Count 276 TH/MM3 (150-450) Mean Platelet Volume 8.8 FL (7.0-11.0) Neutrophils (%) (Auto) 70.9 % (16.0-70.0) Lymphocytes (%) (Auto) 14.3 % (9.0-44.0) Monocytes (%) (Auto) 12.1 % (0.0-8.0) Eosinophils (%) (Auto) 2.0 % (0.0-4.0) Basophils (%) (Auto) 0.7 % (0.0-2.0) Neutrophils # (Auto) 10.2 TH/MM3 (1.8-7.7) Lymphocytes # (Auto) 2.1 TH/MM3 (1.0-4.8) Monocytes # (Auto) 1.7 TH/MM3 (0-0.9) Eosinophils # (Auto) 0.3 TH/MM3 (0-0.4) Basophils # (Auto) 0.1 TH/MM3 (0-0.2) CBC Comment DIFF FINAL Differential Comment Blood Urea Nitrogen 26 MG/DL (7-18) Creatinine 0.67 MG/DL (0.50-1.00) Random Glucose 78 MG/DL (74-106) Calcium Level 8.2 MG/DL (8.5-10.1) Phosphorus Level 3.1 MG/DL (2.5-4.9) Magnesium Level 2.4 MG/DL (1.5-2.5) Sodium Level 142 MEQ/L (136-145) Potassium Level 3.9 MEQ/L (3.5-5.1) Chloride Level 112 MEQ/L (98-107) Carbon Dioxide Level 21.6 MEQ/L (21.0-32.0) Anion Gap 8 MEQ/L (5-15) Estimat Glomerular Filtration Rate 87 ML/MIN (>89) . Result Diagram: 11/07/16 0406 11/07/16 0406 Microbiology Microbiology Date/Time Source Procedure Growth Status 11/06/16 09:05 Blood Peripheral Aerobic Blood Culture - Preliminary NO GROWTH IN 1 DAY Resulted 11/06/16 09:05 Blood Peripheral Anaerobic Blood Culture - Preliminary NO GROWTH IN 1 DAY Resulted 11/06/16 09:00 Blood Peripheral Aerobic Blood Culture - Preliminary NO GROWTH IN 1 DAY Resulted 11/06/16 09:00 Blood Peripheral Anaerobic Blood Culture - Preliminary NO GROWTH IN 1 DAY Resulted 11/04/16 18:55 Blood Peripheral Aerobic Blood Culture - Preliminary NO GROWTH IN 3 DAYS Resulted 11/04/16 18:55 Blood Peripheral Anaerobic Blood Culture - Preliminary NO GROWTH IN 3 DAYS Resulted 11/04/16 18:45 Blood Peripheral Aerobic Blood Culture - Preliminary NO GROWTH IN 3 DAYS Resulted 11/04/16 18:45 Blood Peripheral Anaerobic Blood Culture - Preliminary NO GROWTH IN 3 DAYS Resulted 11/06/16 15:50 Sputum Endotracheal Gram Stain - Final Resulted 11/06/16 15:50 Sputum Culture - Preliminary Gram Negative Herminio Resulted 11/06/16 17:00 Urine Catheterized Urine Urine Culture - Preliminary NO GROWTH IN 24 HOURS. Resulted Procedures 11/01/16 Bronchoscopy 10/28/16 Intubated and mechanically ventilated . Assessment and Plan Disease Oriented Problem List: (1) Acute respiratory failure requiring reintubation (2) Sepsis (3) Pulmonary nodules (4) Normal pressure hydrocephalus (5) Diabetes mellitus (6) Thyroid mass Symptom Scale: (1) Shortness of breath 0-10 Scale: Unable to quantify Comment: Intubated and mechanically ventilated. . (2) Debility 0-10 Scale: Unable to quantify Comment: Resident of a long-term facility, requiring assistance with ADLs. Progressive debility. 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 As per prior medical records from 2007, patient has two sons who reside in the area. Per court appointed guardian, one son is and the other son who once served as patient`s DPOA was not fulfilling his duties and the court appointed a guardian for the patient. 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 Spiritual: Unable to obtain, patient is intubated on mechanical ventilation and sedated. Legal: Patient has a court appointed guardian. Ethical issues impacting care: Patient has a court appointed guardian.Patient has a signed DNR in 2010 by her son prior to court appointed guardian. . Important Contacts [place] [facility]- Court appointed guardian . Prognosis Ms Dalton is a 70 years old female with a medical history of diabetes mellitus, dementia, thyroid disease, anxiety, depression and hyperlipemia, and reactive airway disease. Patient presented to the ED 10/28/16 via EMS after complaining of shortness of breath. Patient was intubated and placed on mechanical ventilation secondary to acute hypoxemic respiratory failure. Clinical course complicated by newly diagnosed normal pressure hydrocephalus/moderate ventriculomegaly, pulmonary nodules concerning for malignancy, severe sepsis, suspected aspiration pneumonia and thyroid mass. Patient's prognosis is guarded. Patient at high risk for further complications, clinical decline and given the above. . Code Status: No Code Plan PLAN: Legal decision maker: Patient has COA guardian, [place]. Goals: Currently aggressive, pending evaluation by restaurant shift leader, neurologist and palliative care physician to determine hospice suitability and determine whether palliative versus aggressive care is most appropriate. CODE STATUS: FULL CODE SYMPTOMS: * Respiratory distress - patient remains ventilated. Sputum culture shows gram- negative rods on a preliminary culture. Discussed with restaurant shift leader to determine if patient is hospice appropriate and should be treated palliatively. Pending his discussion with neurology further decisions will be made. * Debility - admitted from a correction with significant debility, she has been on bed rest, mechanically ventilated requiring restraints for the last 10 days, increasing her baseline debility. Evaluation underway to determine suitability of palliative versus aggressive care. If aggressive care is chosen she would benefit from physical therapy. Palliative care will continue to follow the patient during hospital course as condition evolves, to assist patient/decision-maker with understanding of their medical conditions, weighing benefits/burdens of treatment options, for clarification of goals of treatment. Additionally will assist with any symptoms of palliative concern Attestation To help prompt me to consider important information that might be impacting today's encounter and assessment, information from prior notes written by myself or my colleagues may have been "brought forward" into today's note. My signature on this note, however, is an attestation that I personally performed the exam, history, and/or decision-making noted today, and, unless otherwise indicated, the interactions with patient, family, and staff as well as the review of records all occurred today. I also attest that the listed assessment and stated plan reflect my best clinical judgment today based on the combination of historical information, prior notes, and today's exam/ interactions. When time spent is documented, it refers only to time spent today by the signer, or if indicated, combined time spent today by collaborating physician/nurse practitioner. Alethea Mcfadden Nov 07, 2016 16:04
--- NOTE | 2016-11-07 17:13 | HHI.PR ---
Subjective Remarks 70 YOWF with VDRF,Pneumonia, ? Aspiration Sedated with Fentanyl Tolerated CPAP 5 min only Low grade Fever Off sedation Neurology following Bronchial wash Sq cell ca Objective Vital Signs Vital Signs Date Time Temp Pulse Resp B/P (MAP) Pulse Ox O2 Delivery O2 Flow Rate FiO2 11/07/16 16:00 35 11/07/16 16:00 87 11/07/16 16:00 100.7 87 15 136/63 (87) 99 11/07/16 14:00 107 11/07/16 12:00 97 11/07/16 12:00 35 11/07/16 12:00 100.6 97 14 139/64 (89) 98 11/07/16 10:00 95 11/07/16 09:06 35 11/07/16 09:05 35 11/07/16 08:25 35 11/07/16 08:25 35 11/07/16 08:25 96 35 11/07/16 08:15 96 35 11/07/16 08:00 35 11/07/16 08:00 100.5 84 26 139/65 (89) 98 11/07/16 08:00 84 11/07/16 06:00 97 11/07/16 04:18 100 35 11/07/16 04:00 85 11/07/16 04:00 100.9 85 33 114/56 (75) 100 11/07/16 04:00 35 11/07/16 02:00 95 11/07/16 01:57 96 40 11/07/16 00:00 87 11/07/16 00:00 98.9 87 18 171/81 (111) 100 11/07/16 00:00 35 11/06/16 23:04 100 35 11/06/16 22:00 93 11/06/16 21:30 100 100 11/06/16 20:19 99 35 11/06/16 20:00 93 11/06/16 20:00 99.4 93 17 151/64 (93) 97 11/06/16 20:00 35 11/06/16 18:00 82 I/O 11/06/16 11/06/16 11/06/16 11/07/16 11/07/16 11/07/16 07:00 15:00 23:00 07:00 15:00 23:00 Intake Total 1116 ml 1074 ml 822 ml 600 ml Balance 1116 ml 1074 ml 822 ml 600 ml Intake IV Total 100 ml 200 ml 600 ml Tube Feeding 616 ml 474 ml 222 ml Other 400 ml 600 ml 400 ml # Voids 4 4 # Bowel Movements 1 3 Result Diagram: 11/07/1640511/07/16405 Objective Remarks GENERAL: MBMN WF, intubated, sedated SKIN: Warm and dry. HEAD: Normocephalic. EYES: No scleral icterus. No injection or drainage. NECK: Supple, trachea midline. No JVD or lymphadenopathy. CARDIOVASCULAR: Regular rate and rhythm without murmurs, gallops, or rubs. RESPIRATORY: Breath sounds equal bilaterally. No accessory muscle use. GASTROINTESTINAL: Abdomen soft, non-tender, nondistended. MUSCULOSKELETAL: No cyanosis, or edema. BACK: Nontender without obvious deformity. No CVA tenderness. A/P Assessment and Plan VDRF Pneumonia Aspiration DM Dementia Ventriculomegaly Squamous cell ca PLAN: Vent Support PRVC-AC 14, Fi02 35% Cont Abx Aerosol nebs SQ Heparin Code status DNR Prognosis poor Luis Madison MD Nov 07, 2016 17:13
[2016-11-08] VITALS (19 sets, daily range): BP systolic 147–208; BP diastolic 67–96; PULSE 89–126; RESP 16–48; TEMP 98.3–103.1; O2SAT 93–100
[2016-11-08] MEDS: AZTREONAM INJ 2,000 MG in SODIUM CHLORIDE 0.9% INJ 100 ML IV SCH ×4 (00:42→23:19)
[2016-11-08] MEDS: VANCOMYCIN INJ 1,500 MG in SODIUM CHLORID 0.9% 500 ML INJ 500 ML IV SCH (00:43)
[2016-11-08] MEDS: HEPARIN SODIUM - SQ 10,000 UNITS/ML VIAL SQ SCH ×4 (00:43→23:20)
[2016-11-08] MEDS ORDERED: PHARMACY ORDERED LAB ONE ×2 (00:45→14:45)
[2016-11-08] MEDS: ACETAMINOPHEN 325 MG TAB PO PRN ×3 (01:30→20:40)
[2016-11-08 02:21] LABS: VANCOMYCIN TROUGH 20.5 MCG/ML (5.0-10.0)
[2016-11-08] MEDS: INSULIN NovoLIN REGULAR SUPPLEMENTAL SCALE SQ SCH ×4 (03:00→21:00)
[2016-11-08] MEDS: RESP: ALBUTEROL 2.5 MG/IPRATROPIUM 0.5 MG NEB (SCH) NEB ×4 (03:05→21:12)
[2016-11-08] MEDS: RESP: SODIUM CHLORIDE 3% 4 ML NEB NEB SCH ×4 (03:05→21:12)
[2016-11-08] MEDS: levETIRAcetam INJ 500 MG in SODIUM CHLORIDE 0.9% INJ 100 ML IV SCH ×2 (03:30→16:00)
[2016-11-08] MEDS: CHLORHEXIDINE GLUCONATE 2 % 1 PACK (2 CLOTHS) TOP SCH (04:00)
[2016-11-08] MEDS: [UNRECOGNIZED DRUG - REMARK] NG SCH ×5 (05:51→23:19)
[2016-11-08] MEDS: ARTIFICIAL TEARS OPTH SOLN 15 ML BTL EACH EYE SCH ×3 (06:00→22:13)
[2016-11-08] MEDS: cloNIDine HCL 0.1 MG TAB PO SCH ×3 (06:20→22:12)
[2016-11-08] MEDS: METOPROLOL TARTRATE 50 MG TAB PO SCH ×3 (06:20→22:12)
[2016-11-08] MEDS: CHLORHEXIDINE 0.12% (ORAL KIT) 15 ML CUP MT SCH ×2 (07:51→20:41)
[2016-11-08] MEDS: INSULIN DETEMIR 100 UNITS/ML VIAL SQ SCH ×2 (07:56→20:41)
[2016-11-08] MEDS: LACTOBACILLUS ACIDOPHILUS TAB PO SCH ×3 (07:56→17:33)
[2016-11-08] MEDS: FLUCONAZOLE 100 MG TAB PO SCH (07:56)
[2016-11-08] MEDS: MUPIROCIN 2% OINT 1 APPLIC/GM SYR EACH NARE SCH ×2 (07:56→20:42)
[2016-11-08] MEDS: FAMOTIDINE 20 MG TAB PO SCH ×2 (07:56→20:41)
[2016-11-08] MEDS: SODIUM CHLORIDE 0.9% FLUSH 10 ML FLUSH IV FLUSH SCH ×2 (07:57→20:41)
--- NOTE | 2016-11-08 12:26 | HHI.CCPN ---
Subjective Remarks/Hospital Course HPI 70-year-old prison resident with a medical history significant for dementia, diabetes mellitus, hyperlipidemia, reactive airway disease who was found to have altered [facility] status at the prison for which [facility] was called. Patient was noted to have O2 sats in the 70s. She was very apneic with her head slumped down. Paramedics report of having to hold her head up to have her breathe with the nebulizer treatment in place. Patient was given Solu- Medrol 125 mg IV and 4 nebulizer treatments prior to arrival in the ER for documentation. On arrival in the ER patient was extremely lethargic however was reportedly able to answer some questions. Patient was felt not to be able to protect her airway as well as very hypoxic and hence was intubated by ER physician and placed on mechanical ventilation. Chest x-ray in the ER showed bilateral infiltrates and possible cavitary lesion. She was accepted for admission by critical care medicine service. CT chest was ordered by ER physician. When I evaluated the patient in the ER she was sedated with propofol , orally intubated on mechanical ventilation. History was obtained by reviewing records and discussion with ER physician. 10/29 Patient is sedated with Diprivan and intubated. Afebrile. 10/30 Patient remains sedated and intubated. T:99.7 last night. 10/31: Intubated sedated. CT reviewed and discussed with Dr. Madison. Will consider Bronch. Also check thyroid US and possible biopsy. Check thyroid studies. Also consult palliative care as patient has underlying dementia with NPH and possible malignancy. 11/01: Tmax 100.3. Plan for bronchoscopy at 3:00 today. Noted thyroid masses chronic/since 2011. Tolerating tube feeding. Positive BM. 11/02: Tmax 100.1. Status post bronchoscopy yesterday with removal of mucous plugging. Tolerating tube feeds. Positive BM. Weaning propofol sedation today. 11/03: Tmax 100.6. Noted elevated leukocytosis. Weaning sedation. Positive BM. Tolerate tube feeding. 11/04: Afebrile. UA negative. C. difficile pending. 4 bowel movement overnight. Tolerating tube feeding. No new issues. 11/05 Patient is sedated with Diprivan and intubated. T:100.7. Given Labetalol 10mg IV x3 for hypertension overnight. 11/06 No events overnight. Off sedation. T: 101.5 last night. Subjective 11/07: Tmax 102. Currently 100.6. Continues off sedation. Eyes are open to voice but not falling commands. Noted MRI brain unchanged. MRI C-spine revealed no cord compression or cord abnormality's. Severe C5/6 right foraminal narrowing 11/08: Remains intubated sedated, intermittently opens eyes. Per palliative care , immigration judge requesting letter of certification from treatment team. Prior to making a decision to withdraw from life support, the immigration judge is requesting a letter from the covering physicians certifying that she is hospice appropriate and palliative rather than aggressive treatment is appropriate. Dr. Madison thinks hospice is appropriate but also recommends Oncology input. I have consulted medical oncology Objective Vital Signs Date Time Temp Pulse Resp B/P (MAP) Pulse Ox O2 Delivery O2 Flow Rate FiO2 11/08/16 10:01 35 11/08/16 10:00 122 11/08/16 08:49 100 11/08/16 08:00 100.7 21 163/76 (105) Intake and Output 11/08/16 11/08/16 11/09/16 08:00 16:00 00:00 Intake Total 1641 ml Balance 1641 ml Result Diagram: 11/07/16 0406 11/08/16 0050 Imaging Last Impressions Chest X-Ray 11/07/16 0000 Signed Impressions: Service Date/Time: Monday, November 07, 2016 04:53 - CONCLUSION: 1. Slight increase in basilar airspace disease since November 05. Endotracheal tube and nasogastric tube unchanged. Nestor Palomino MD Cervical Spine MRI 11/06/16 0000 Signed Impressions: Service Date/Time: Sunday, November 06, 2016 21:36 - CONCLUSION: 1. Multilevel degenerative changes of the cervical spine as above, especially C5/ C6 and C6/C7. 2. Mild to moderate spinal stenosis and severe right foraminal stenosis at C5/C6. 3. Mild spinal stenosis and moderate right foraminal stenosis at C6/C7. 4. No cord compression or cord signal abnormality. 5. No fracture or subluxation. 6. Large nodule of the left lobe of the thyroid gland. There are also upper limits of normal bilateral cervical lymph nodes. Keshav Burks MD Brain MRI 11/06/16 0000 Signed Impressions: Service Date/Time: Sunday, November 06, 2016 21:36 - CONCLUSION: 1. No change or acute abnormality demonstrated. 2. Atrophy, ventriculomegaly and chronic white matter changes are again noted. Keshav Burks MD Thyroid Ultrasound 10/31/16 0000 Signed Impressions: Service Date/Time: Monday, October 31, 2016 11:47 - CONCLUSION: Large complex mass right lobe of the thyroid. Minimally increased in size since Jacoby Torre MD FACR Abdomen X-Ray 10/29/16 0000 Signed Impressions: Service Date/Time: Saturday, October 29, 2016 15:32 - CONCLUSION: Negative for radiopaque foreign bodies. Jacoby Torre MD FACR Chest CT 10/28/161813 Signed Impressions: Service Date/Time: Friday, October 28, 2016 18:28 - CONCLUSION: 1. Abnormality on chest radiograph corresponds to a 3.4 x 3.5 cm central right hilar mass/adenopathy with associated postobstructive airspace consolidation in the inferior right upper lobe. There are at least 2 additional pulmonary nodules measuring 13 x 8 mm in the anterior right middle lobe and 8 x 8 mm in the anterior right upper lobe near the apex. 2. 3.9 x 4.3 cm heterogeneous nodule in the right thyroid gland. No significant regional cervical adenopathy. 3. Patchy bilateral lower lobe air space consolidation and diffuse ground glass opacities. Differential considerations include ARDS versus infection versus aspiration. 1. Tyler Selby MD Head CT 10/28/16 0000 Signed Impressions: Service Date/Time: Friday, October 28, 2016 20:44 - CONCLUSION: 1. No bleed or evidence of acute infarction. 2. Atrophy and chronic white matter changes. 3. Moderate ventriculomegaly, beyond that expected for the degree of atrophy. Normal pressure hydrocephalus would be in the differential. Keshav Burks MD Objective Remarks GENERAL: 71-year-old female, critically ill currently orotracheally intubated SKIN: Warm and dry. HEAD: Atraumatic. Normocephalic. EYES: Pupils equal and round about 3 mm bilaterally and reactive. No scleral icterus. No injection or drainage. ENT: No nasal bleeding or discharge. Orotracheally intubated NECK: Trachea midline. No JVD. Right-sided thyromegaly/palpable mass noted CARDIOVASCULAR: Tachycardic, RR. S1, S2 no S4. Without murmur RESPIRATORY: Diminished breath sounds right upper lobe. Coarse crackles appreciated bilaterally. Also bilateral course rhonchi GASTROINTESTINAL: Abdomen soft, non-tender, nondistended. Hepatic and splenic margins not palpable. MUSCULOSKELETAL: Extremities bilateral trace nonpitting lower extremity edema. No obvious deformities. NEUROLOGICAL: Positive gag. Positive corneal reflex. Not following commands upper or lower extremity. Upward toes. Urinary Catheter: Yes Assessment to: Continue A/P Assessment and Plan Plan: Neuro/Psych: Depression/anxiety Toxic metabolic encephalopathy Ventriculomegaly History of dementia Off sedation, monitor neuro status. EEG 11/06 revealed triphasic sway/diffuse sharp waves likely moderate encephalopathy cannot rule out proclivity of seizure Neuro eval for encephalopathy with Dr. Sampson noted CT brain: Moderate ventriculomegaly, beyond that expected for the degree of atrophy. MRI confirms. Neurosurgery is following- Dr. Hernandez No acute intervention Repeat MRI brain 11/06 stable for ventriculomegaly. No other acute findings Currently holding home medications clonazepam 0.5 mg twice a day and quetiapine 25 mg at night On levetiracetam 500 mg IV twice a day per neurology's EEG above As needed fentanyl 50 every 8 hours when necessary pain CV: Hypertension Dyslipidemia On Lopressor 50mg Q8, amlodipine 10mg daily, add Clonidine 0.1mg Q8, -Monitor HR and BP keep MAP>65mmHg Home medication for hypertension include amlodipine 10 mg by mouth daily and carvedilol 25 mg by mouth twice a day As needed hydralazine and labetalol and Nitropaste for hypertension Currently holding atorvastatin 40 mg by mouth daily for dyslipidemia. Pulm Acute hypoxemic respiratory failure possibly secondary to post obstructive pneumonia Squamous cell carcinoma of Lung [facility] /02/15/34. Ventilator bundle Albuterol/ipratropium aerosols every 6 hours with albuterol aerosols every 2 hours. Dyspnea. At 3% saline aerosols every 6 hours [address] chest reviewed revealed 3.4 x 2.5 right hilar mass with post discharge pneumonia in the right upper lobe. Right middle lobe mass. Pulm is following- Dr. Madison, s/p bronch with BAL 11/01. Cytology positive ( squamous cell carcinoma Renal/: Hypernatremia - resolved Monitor renal function, I/O's, electrolytes replacement per protocol. On free water 200 cc every 6 hours tube feeds GI/liver: Mild protein calorie malnutrition Continue with Glucerna 1.5 at 40 cc an hour On famotidine 20mg BID for GI prophylaxis ID: Escherichia coli UTI Postobstructive pneumonia Continue with abx per ID ( Vancomycin, Aztreonam, fluconazole) monitor for signs of infections ( Fever, WBC). Per Dr. Sampson: may require csf studies; will f/u blood cx's first Follow up on cultures and bronchoscopy 11/01- Yeast species BC 11/04: NGTD Blood cultures 2 - 11/06 - NGTD Sputum 11/06 ESBL E Coli and PSAE. ID will change ABX to Carbapenem with PSAE coverage 11/08/16. d/w Dr Zarate Strep pneumonia urinary Ag negative. ID is following- Dr. 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 Patient has hilar mass with pulmonary nodules, also thyroid mass. Palliative care is following Endocrine: Diabetes mellitus Currently on insulin detemir 26 units twice a day. Right thyroid mass 6.8 cm/chronic On SSI high scale Novulin R for glycemic control. Patient is on insulin glargine at home Prophylaxis: Famotidine 20 mg twice a day via OG tube, SCDs/subcutaneous heparin CCT 30 mins Remains critically ill now with ESBL E Coli and PSAE pneumonia. D/W ID. 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 Oncology consult, immigration judge requiring certification from treatment team prior to proceeding with withdrawal of life support/Hospice Trevor Parr MD Nov 08, 2016 12:26
[2016-11-08] MEDS ORDERED: ASP: Path resistant to other antimicrobials, culture proven PRN (12:45)
[2016-11-08] MEDS ORDERED: MISCELLANEOUS PHARMACY INFORMATION XX PRN ×2 (12:45)
[2016-11-08] MEDS ORDERED: ASP: Documented allergy to Penicillins or Cephalosporins PRN (12:45)
[2016-11-08] MEDS: MEROPENEM INJ 1,000 MG in SODIUM CHLORIDE 0.9% INJ 100 ML IV SCH ×2 (16:10→23:19)
--- NOTE | 2016-11-08 16:21 | HHI.IDPN ---
Note Infectious Disease Note Patient on the vent. Off sedation and opens eyes. Not following commands. Secretions remain thick. Temp up to 103. WBC lower. Bronch pathology shows squamous cell carcinoma. PAST MEDICAL HISTORY 1. Dementia. 2. Diabetes mellitus. 3. Hypertension. 4. Thyroid disease. 5. Anxiety, depression. 6. Arthritis. ALLERGIES AMOXICILLIN, PROPOXYPHENE. ANTIBIOTICS: Azactam. Diflucan. Flagyl. Vancomycin. OBJECTIVE: Vital Signs Date Time Temp Pulse Resp B/P (MAP) Pulse Ox O2 Delivery O2 Flow Rate FiO2 11/08/16 15:03 27 11/08/16 14:00 97 11/08/16 12:00 126 11/08/16 12:00 103.1 126 20 150/67 (94) 100 11/08/16 12:00 35 11/08/16 11:50 96 35 11/08/16 10:02 35 11/08/16 10:01 35 11/08/16 10:00 122 11/08/16 09:46 35 11/08/16 09:46 35 11/08/16 08:49 100 35 11/08/16 08:00 100.7 92 21 163/76 (105) 100 11/08/16 08:00 92 11/08/16 08:00 35 11/08/16 06:00 98 11/08/16 05:00 158/70 (99) 96 11/08/16 04:27 100 35 11/08/16 04:00 35 11/08/16 04:00 98.3 108 16 208/96 (133) 100 11/08/16 04:00 108 11/08/16 02:00 95 11/08/16 00:57 98 35 11/08/16 00:00 89 11/08/16 00:00 35 11/08/16 00:00 101.2 89 16 157/72 (100) 100 11/07/16 22:27 100 35 11/07/16 22:00 95 11/07/16 20:35 100 35 11/07/16 20:00 99 11/07/16 20:00 99.9 99 16 164/73 (103) 98 11/07/16 20:00 35 11/07/16 18:30 87 22 136/63 (87) 98 11/07/16 18:00 90 11/07/16 18:00 90 30 130/60 (83) 99 11/07/16 17:30 94 23 143/65 (91) 99 11/07/16 17:30 99 35 11/07/16 17:00 103 19 138/71 (93) 93 11/07/16 16:30 94 18 144/64 (90) 98 Laboratory Tests Test 11/06/16 04:31 11/06/16 19:49 11/07/16 04:06 White Blood Count 15.6 TH/MM3 14.4 TH/MM3 Red Blood Count 3.69 MIL/MM3 3.34 MIL/MM3 Hemoglobin 11.0 GM/DL 9.8 GM/DL Hematocrit 32.8 % 29.7 % Mean Corpuscular Volume 89.0 FL 88.9 FL Mean Corpuscular Hemoglobin 29.8 PG 29.4 PG Mean Corpuscular Hemoglobin Concent 33.5 % 33.1 % Red Cell Distribution Width 15.0 % 14.6 % Platelet Count 275 TH/MM3 276 TH/MM3 Mean Platelet Volume 8.8 FL 8.8 FL Neutrophils (%) (Auto) 70.2 % 70.9 % Lymphocytes (%) (Auto) 14.9 % 14.3 % Monocytes (%) (Auto) 11.1 % 12.1 % Eosinophils (%) (Auto) 3.0 % 2.0 % Basophils (%) (Auto) 0.8 % 0.7 % Neutrophils # (Auto) 11.0 TH/MM3 10.2 TH/MM3 Lymphocytes # (Auto) 2.3 TH/MM3 2.1 TH/MM3 Monocytes # (Auto) 1.7 TH/MM3 1.7 TH/MM3 Eosinophils # (Auto) 0.5 TH/MM3 0.3 TH/MM3 Basophils # (Auto) 0.1 TH/MM3 0.1 TH/MM3 CBC Comment DIFF FINAL DIFF FINAL Differential Comment Erythrocyte Sedimentation Rate 79 mm/hr Laboratory Tests Test 11/06/16 04:31 11/06/16 19:49 11/07/16 04:06 Blood Urea Nitrogen 24 MG/DL 26 MG/DL Creatinine 0.63 MG/DL 0.67 MG/DL Random Glucose 198 MG/DL 78 MG/DL Calcium Level 8.3 MG/DL 8.2 MG/DL Phosphorus Level 2.8 MG/DL 3.1 MG/DL Magnesium Level 2.2 MG/DL 2.4 MG/DL Sodium Level 145 MEQ/L 142 MEQ/L Potassium Level 3.3 MEQ/L 3.9 MEQ/L Chloride Level 111 MEQ/L 112 MEQ/L Carbon Dioxide Level 24.3 MEQ/L 21.6 MEQ/L Anion Gap 10 MEQ/L 8 MEQ/L Estimat Glomerular Filtration Rate 93 ML/MIN 87 ML/MIN Total Creatine Kinase 34 U/L C-Reactive Protein 15.00 MG/DL Vitamin B12 Level 1117 PG/ML Ammonia 23 MCMOL/L Microbiology Date/Time Source Procedure Growth Status 11/06/16 09:05 Blood Peripheral Aerobic Blood Culture - Preliminary NO GROWTH IN 1 DAY Resulted 11/06/16 09:05 Blood Peripheral Anaerobic Blood Culture - Preliminary NO GROWTH IN 1 DAY Resulted 11/06/16 09:00 Blood Peripheral Aerobic Blood Culture - Preliminary NO GROWTH IN 1 DAY Resulted 11/06/16 09:00 Blood Peripheral Anaerobic Blood Culture - Preliminary NO GROWTH IN 1 DAY Resulted 11/04/16 18:55 Blood Peripheral Aerobic Blood Culture - Preliminary NO GROWTH IN 3 DAYS Resulted 11/04/16 18:55 Blood Peripheral Anaerobic Blood Culture - Preliminary NO GROWTH IN 3 DAYS Resulted 11/04/16 18:45 Blood Peripheral Aerobic Blood Culture - Preliminary NO GROWTH IN 3 DAYS Resulted 11/04/16 18:45 Blood Peripheral Anaerobic Blood Culture - Preliminary NO GROWTH IN 3 DAYS Resulted 11/06/16 15:50 Sputum Endotracheal Gram Stain - Final Resulted 11/06/16 15:50 Sputum Endotracheal Sputum Culture Pending Resulted 11/06/16 17:00 Urine Catheterized Urine Urine Culture Pending Received IMAGING: Chest X-Ray 11/07/16 0000 Signed Impressions: Service Date/Time: Monday, November 07, 2016 04:53 - CONCLUSION: 1. Slight increase in basilar airspace disease since November 05. Endotracheal tube and nasogastric tube unchanged. Nestor Palomino MD Cervical Spine MRI 11/06/16 0000 Signed Impressions: Service Date/Time: Sunday, November 06, 2016 21:36 - CONCLUSION: 1. Multilevel degenerative changes of the cervical spine as above, especially C5/ C6 and C6/C7. 2. Mild to moderate spinal stenosis and severe right foraminal stenosis at C5/C6. 3. Mild spinal stenosis and moderate right foraminal stenosis at C6/C7. 4. No cord compression or cord signal abnormality. 5. No fracture or subluxation. 6. Large nodule of the left lobe of the thyroid gland. There are also upper limits of normal bilateral cervical lymph nodes. Keshav Burks MD Brain MRI 11/06/16 0000 Signed Impressions: Service Date/Time: Sunday, November 06, 2016 21:36 - CONCLUSION: 1. No change or acute abnormality demonstrated. 2. Atrophy, ventriculomegaly and chronic white matter changes are again noted. Keshav Burks MD Chest X-Ray 11/05/16 0600 Signed Impressions: Service Date/Time: Saturday, November 05, 2016 03:32 - CONCLUSION: 1. Mild basilar airspace disease similar to November 03. Support apparatus in good position. Nestor Palomino MD PHYSICAL EXAMINATION GENERAL: On the ventilator. No acute distress. NECK: Obese, fullness at the right lateral neck. LUNGS: Basilar rhonchi right. Wheezing at the left base. HEART: Nl S1S2, No audible murmurs or rubs or gallops. ABDOMEN: Obese, soft, No tenderness. EXTREMITIES: No clubbing or cyanosis or edema. SKIN: No rash. NEURO: Awake. Not following commands. PSYCHE: Unable to assess. IMPRESSION 1. Bilateral Pneumonia with hilar cavitary mass. Pseudomonas and ESBL e. coli in sputum. Squamous cell cancer. 2. Acute respiratory failure. 3. UTI. 4. Fever and increased WBC. RECOMMENDATIONS 1. Continue Vancomycin. 2. Continue aztreonam. 3. Add Meropenem. 4. Continue Diflucan. Yeast in bronch. ? significance. 5. Monitor temperature. 6. Monitor cultures. Francisco Zarate MD Nov 08, 2016 16:21
--- NOTE | 2016-11-08 16:48 | HHI.HCPN ---
Ms Dalton is a 70 year old female with a medical history of diabetes mellitus, dementia, thyroid disease, anxiety, depression and hyperlipemia, and reactive airway disease. Patient presented to the ED 10/28/16 via EMS after complaining of shortness of breath and intubated due to acute hypoxemic respiratory failure. She has failed all attempts at vent weaning and remains intubated. During her hospitalization she was diagnosed with normal pressure hydrocephalus/ moderate ventriculomegaly, pulmonary nodules concerning for malignancy, now with cytology confirming squamous cell carcinoma, severe sepsis, suspected aspiration pneumonia and thyroid mass. Palliative care consulted for further clarifications of goals of care given the above. Patient has a court appointed guardian [place] Lyons from [facility] who has to present patient`s case before the interior design consultant regarding goals of care. Case discussed with Dr. Parr. Notified him that patient`s Guardian from [facility] is requesting a letter from the covering physicians certifying that patient is hospice appropriate and palliative rather than pursuing aggressive treatment to present to the Web Press Operator. Dr. Parr consulting medical oncology to evaluate patient and, "commend whether patient is appropriate for aggressive therapy or hospice". Palliative care will continue to follow the patient during hospital course as condition evolves, to assist patient/decision-maker with understanding of their medical conditions, weighing benefits/burdens of treatment options, for clarification of goals of treatment. Additionally will assist with any symptoms of palliative concern. . Sydnee Morales Nov 08, 2016 16:48
--- NOTE | 2016-11-08 19:15 | MB ---
cc: SHILOH BUTLER DATE OF CONSULTATION 11/08/16 REASON FOR CONSULTATION Patient with squamous cell cancer of the lung. I have been asked to comment on whether she is appropriate for aggressive therapy or for Hospice. PATIENT PROFILE The patient is intubated. She is unable to provide a history. The history is obtained by reviewing records dating back as far as 2007. HISTORY OF PRESENT ILLNESS The patient presently resides in a long-term care facility called [facility]. She has been chronically ill and unable to care for herself. According to the note from palliative care she is "totally incapacitated by the court on July 2015." There is also a note that she is not capable of activities of daily living without help. She has had a progressive dementia present for approximately 10 years. She is . 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 She has two sons. She presently has a court appointed guardian and according to notes had a DNR prior to arriving at the hospital. There is a history of tobacco use in the distant past but I am not sure to what extent. HISTORY OF PRESENT ILLNESS [facility] due to shortness of breath. When the paramedics arrived, the patient was near apneic. On arrival at [facility] she was lethargic and in respiratory distress. The admission occurred on 10/28. She had a number of tests, a chest x-ray on 10/28 showed a right hilar fullness or mass with what appeared to be post obstructive atelectasis. A CT scan of the thorax with IV contrast on 10/28/2016 showed dense airspace consolidation in the inferior right upper lobe abutting the fissure. There was a central hilar mass or adenopathy measuring 3.4 x 3.5 cm. There was a solid 1.2 cm nodule in the anterior right middle lobe. There was a second peripheral nodule in the anterior right upper lobe measuring 8 mm. There were diffuse lower lobe ground-glass opacities and patchy bilateral lower lobe airspace consolidation. There was a 4.3 cm nodule in the right thyroid gland. There was a prominent anterior carinal lymph node measuring 1.5 cm as well as hilar adenopathy. The patient had a bronchoscopy performed by Dr. Madison on 11/01/2016. No endobronchial lesion was seen. The right lung showed mucus plugging. There was tracheobronchial malacia. The cytology from the bronchial alveolar lavage showed squamous cell carcinoma. The patient remains intubated. She is now febrile with temperatures as high as 103. Her sputum contains E-coli, ESBL and Pseudomonas aeruginosa. In speaking with the nurses she has continued to deteriorate. PAST SURGICAL HISTORY Unknown to me. PAST MEDICAL HISTORY 1. Insulin dependent diabetes. 2. Hypertension. 3. Hyperlipidemia. 4. Dementia going back to at least 2007 with associated incontinence. 5. Nodule right supraclavicular neck area, possibly related to the thyroid. ALLERGIES AMOXICILLIN, PROPOXYPHENE ACCORDING TO RECORDS. FAMILY HISTORY Unknown to me. REVIEW OF SYSTEMS Not obtainable. The patient is intubated and appears to have some deliberate eye movement. Additional studies: Brain MRI on 10/30 shows ventriculomegaly/ hydrocephalus with a differential diagnosis including normal pressure hydrocephalus and aqueductal stenosis. There is extensive nonspecific white matter changes. Cervical spine MRI shows a large nodule involving the thyroid gland. A thyroid ultrasound October shows a large complex mass right lobe of the thyroid. LABORATORY STUDIES Hemoglobin 9.8, white count 14,000, platelets 276,000. Lytes, BUN, creatinine unremarkable. Most recent chest x-ray is dated 11/07 shows slight increase in basilar air space disease since November 05. Endotracheal tube and nasogastric tube were unchanged. PHYSICAL EXAMINATION GENERAL: Reveals an acutely ill female, intubated. Her body habitus is odd. Head is normal in size and the trunk and legs are unusually small and disproportionate. VITAL SIGNS: Blood pressure 140/70, respiratory rate 20, pulse 110, temperature 102.4, O2 sat 93% on 35%. HEAD: Unremarkable. NECK: Examination of the neck and lymph nodes reveals a large mass, 4-5 cm extending from what appears to be the right lobe of the thyroid into the right supraclavicular area and into the anterior neck, almost reaching the mandible. It is firm and unusually large for a benign thyroid nodule. BREAST: Right breast pendulous without masses. Examination of left breast was difficult as the patient was on her side, intubated and I could not do a full exam. HEART: Regular rhythm. LUNGS: Revealed mild wheezes and rhonchi more prominent the right base. ABDOMEN: Obese. No hepatosplenomegaly. EXTREMITIES: Trace edema. Legs unusually short. MUSCULOSKELETAL: No obvious bone tenderness. NEUROLOGIC EXAMINATION: Eyes did appear to track. A few spontaneous movements. ASSESSMENT The patient is a 71-year-old female. She has a squamous cell cancer of the right lung involving the hilar area. She has two nodules in the right lung. She may have a mediastinal lymph node as well. She has a separate thyroid mass which is unusually large and hard and at this point I do not know whether it is or is not malignant. This woman has very significant comorbidities. She has had documented dementia since 2007. She is not fully capable of activities of daily living and requires a great deal of help. She appears to have hydrocephalus or possibly stenosis of the aqueduct. The treatments that are available for squamous cell cancer would consist of the followin. Surgery. She is not a candidate for surgery. 2. Radiation therapy. I do not believe that this problem can be addressed with radiation given her extremely poor performance status. 3. Chemotherapy. She is not a candidate for chemotherapy due to her poor performance status. 4. Immunotherapy. I do not think that immunotherapy will serve her. She is not only acutely ill but has been progressively debilitated with her medical problems including dementia, self-care deficit, diabetes. Under these circumstances I cannot imagine that she is a candidate for "aggressive therapy" to resolve or even mitigate her lung cancer. She also appears to have a post obstructive pneumonia. Unless there is significant improvement in the next several days, I would recommend only supportive care. I cannot recommend any treatment of her malignancy given her underlying comorbidities and I believe that Hospice would be appropriate unless in the next several days there is an unexpected and miraculous recovery which does not appear to be what is happening now. MD LILA Collazo/SKY /6:08 PM /6:44 PM CINDI
[2016-11-08] MEDS: LABETALOL HCL 100 MG/20 ML VIAL IV PUSH PRN (19:41)
--- NOTE | 2016-11-08 20:32 | HHI.PR ---
Subjective Remarks 70 YOWF with VDRF,Pneumonia, ? Aspiration Sedated with Fentanyl Tolerated CPAP 5 min only Low grade Fever Off sedation Neurology following Bronchial wash Sq cell ca Seen by Objective Vital Signs Vital Signs Date Time Temp Pulse Resp B/P (MAP) Pulse Ox O2 Delivery O2 Flow Rate FiO2 11/08/16 18:00 121 11/08/16 17:33 25 11/08/16 16:52 93 35 11/08/16 16:00 35 11/08/16 16:00 102.4 110 22 147/70 (95) 96 11/08/16 16:00 110 11/08/16 14:00 97 11/08/16 12:00 126 11/08/16 12:00 103.1 126 20 150/67 (94) 100 11/08/16 12:00 35 11/08/16 11:50 96 35 11/08/16 10:02 35 11/08/16 10:01 35 11/08/16 10:00 122 11/08/16 09:46 35 11/08/16 09:46 35 11/08/16 08:49 100 35 11/08/16 08:00 100.7 92 21 163/76 (105) 100 11/08/16 08:00 92 11/08/16 08:00 35 11/08/16 06:00 98 11/08/16 05:00 158/70 (99) 96 11/08/16 04:27 100 35 11/08/16 04:00 35 11/08/16 04:00 98.3 108 16 208/96 (133) 100 11/08/16 04:00 108 11/08/16 02:00 95 11/08/16 00:57 98 35 11/08/16 00:00 89 11/08/16 00:00 35 11/08/16 00:00 101.2 89 16 157/72 (100) 100 11/07/16 22:27 100 35 11/07/16 22:00 95 11/07/16 20:35 100 35 I/O 11/07/16 11/07/16 11/07/16 11/08/16 11/08/16 11/08/16 07:00 15:00 23:00 07:00 15:00 23:00 Intake Total 822 ml 600 ml 1139 ml 1641 ml 1326 ml Balance 822 ml 600 ml 1139 ml 1641 ml 1326 ml Intake IV Total 200 ml 600 ml 205 ml 728 ml 405 ml Tube Feeding 222 ml 414 ml 413 ml 341 ml Tube Irrigant 120 ml 180 ml Other 400 ml 400 ml 500 ml 400 ml # Voids 4 3 5 3 # Bowel Movements 3 2 1 4 Result Diagram: 11/07/16 0406 11/08/16 0050 Objective Remarks GENERAL: MBMN WF, intubated, sedated SKIN: Warm and dry. HEAD: Normocephalic. EYES: No scleral icterus. No injection or drainage. NECK: Supple, trachea midline. No JVD or lymphadenopathy. CARDIOVASCULAR: Regular rate and rhythm without murmurs, gallops, or rubs. RESPIRATORY: Breath sounds equal bilaterally. No accessory muscle use. GASTROINTESTINAL: Abdomen soft, non-tender, nondistended. MUSCULOSKELETAL: No cyanosis, or edema. BACK: Nontender without obvious deformity. No CVA tenderness. A/P Assessment and Plan VDRF Pneumonia Aspiration DM Dementia Ventriculomegaly Squamous cell ca PLAN: Vent Support PRVC-AC 14, Fi02 35% Cont Abx Aerosol nebs SQ Heparin Code status DNR Prognosis poor Poor performance status, Hospice appropriate. Luis Madison MD Nov 08, 2016 20:32
[2016-11-09] VITALS (24 sets, daily range): BP systolic 114–165; BP diastolic 56–76; PULSE 78–113; RESP 19–34; TEMP 97.6–100.3; O2SAT 98–100
[2016-11-09] MEDS: VANCOMYCIN 1,500 MG/NS 500 ML IV SCH ×2 (01:43)
[2016-11-09] MEDS: LABETALOL HCL 100 MG/20 ML VIAL IV PUSH PRN ×2 (02:27→03:22)
[2016-11-09] MEDS: levETIRAcetam INJ 500 MG in SODIUM CHLORIDE 0.9% INJ 100 ML IV SCH ×2 (02:49→15:17)
[2016-11-09] MEDS: INSULIN NovoLIN REGULAR SUPPLEMENTAL SCALE SQ SCH ×4 (03:00→20:35)
[2016-11-09] MEDS: CHLORHEXIDINE GLUCONATE 2 % 1 PACK (2 CLOTHS) TOP SCH (04:00)
[2016-11-09] MEDS: RESP: ALBUTEROL 2.5 MG/IPRATROPIUM 0.5 MG NEB (SCH) NEB ×4 (04:17→20:20)
[2016-11-09] MEDS: RESP: SODIUM CHLORIDE 3% 4 ML NEB NEB SCH ×4 (04:17→20:21)
[2016-11-09] MEDS: [UNRECOGNIZED DRUG - REMARK] NG SCH ×3 (06:00→17:34)
[2016-11-09] MEDS: METOPROLOL TARTRATE 50 MG TAB PO SCH ×3 (06:02→22:24)
[2016-11-09] MEDS: ARTIFICIAL TEARS OPTH SOLN 15 ML BTL EACH EYE SCH ×3 (06:02→22:25)
[2016-11-09] MEDS: MEROPENEM INJ 1,000 MG in SODIUM CHLORIDE 0.9% INJ 100 ML IV SCH ×3 (06:02→22:43)
[2016-11-09] MEDS: cloNIDine HCL 0.1 MG TAB PO SCH ×3 (06:02→22:24)
--- NOTE | 2016-11-09 06:53 | HHI.PR ---
Review/Management Diagnosis/Plan: (1) Acute encephalopathy ICD Codes: G93.40 - Encephalopathy, unspecified Status: Acute Plan: likely metabolic; in sepsis at present moderate atrophy and ventriculomegaly on mri scan. wonder if she has underlying dementia? mri brain/cspine- no cord lesion; brain unchanged recs metabolic encephalopathy 2/2 pneumonia with + cx's severe resp illness found to have lung cancer followed by onc and palliative care will follow peripherally (2) Acute respiratory failure requiring reintubation ICD Codes: J96.00 - Acute respiratory failure, unspecified whether with hypoxia or hypercapnia Status: Acute Plan: ccm intubated (3) Pneumonia ICD Codes: J18.9 - Pneumonia, unspecified organism Status: Acute Plan: intubated, iv abx (4) UTI (urinary tract infection) ICD Codes: N39.0 - Urinary tract infection, site not specified Status: Acute Plan: abx, ID following Subjective Subjective Comments No acute events reported Active Medications Current Medications Medications (Trade) Dose Ordered Sig/Nathan Route Start Time Stop Time Status Last Admin (NS Flush) 2 ml UNSCH PRN IV FLUSH 10/28/16 18:30 10/30/16 09:51 (NS Flush) 2 ml BID IV FLUSH 10/28/16 21:00 11/08/16 20:41 (Tylenol) 650 mg Q6H PRN PO 10/28/16 18:30 11/08/16 20:40 (Peridex 0.12% Liq) 15 ml BID@08,20 MT 10/28/16 20:00 11/08/16 20:41 Miscellaneous Information 1 Q361D XX 10/28/16 18:30 10/28/16 21:00 (Chlorhexidine 2% Cloth) Taper DAILY@04 TOP 10/29/16 04:00 10/25/17 03:59 11/07/16 03:00 (Chlorhexidine 2% Cloth) 3 pack UNSCH PRN TOP 10/28/16 18:30 Propofol 100 ml @ 2.4 mls/hr TITRATE PRN IV 10/28/16 18:30 11/05/16 06:10 Aztreonam 2000 mg/ Sodium Chloride 100 ml @ 200 mls/hr Q8H IV 10/29/16 00:00 11/08/16 23:19 (Heparin Inj) 5,000 units Q8H SQ 10/29/16 08:00 11/08/16 23:20 Potassium Chloride 100 ml @ 50 mls/hr Q2H PRN IV 10/29/16 08:00 Potassium Chloride 100 ml @ 50 mls/hr Q2H PRN IV 10/29/16 08:00 (K-Lyte Cl Eff) 50 meq UNSCH PRN PO 10/29/16 08:00 11/06/16 15:43 Potassium Chloride 100 ml @ 25 mls/hr UNSCH PRN IV 10/29/16 08:00 Potassium Chloride 100 ml @ 50 mls/hr Q2H PRN IV 10/29/16 08:00 Magnesium Sulfate 4 gm/Sodium Chloride 100 ml @ 50 mls/hr UNSCH PRN IV 10/29/16 08:00 (Mag-Ox) 800 mg UNSCH PRN PO 10/29/16 08:00 Magnesium Sulfate 2 gm/Sodium Chloride 100 ml @ 50 mls/hr UNSCH PRN IV 10/29/16 08:00 (K-Phos) 2,000 mg Q4H PRN PO 10/29/16 08:00 Sodium Phosphate 30 mmol/Sodium Chloride 250 ml @ 42 mls/hr UNSCH PRN IV 10/29/16 08:00 10/29/16 10:21 (K-Phos) 2,000 mg UNSCH PRN PO/TUBE 10/29/16 08:00 Potassium Phosphate 30 mmol/ Sodium Chloride 260 ml @ 42 mls/hr UNSCH PRN IV 10/29/16 08:00 (Apresoline Inj) 10 mg Q6H PRN IV PUSH 10/30/16 15:00 11/04/16 08:38 (Tears Naturale Opth Soln) 1 drop Q8HR EACH EYE 11/01/16 22:00 11/09/16 06:02 (Bactroban Nasal 2% Oint) Taper BID EACH NARE 11/01/16 21:00 10/28/17 20:59 11/08/16 20:42 (Albuterol Neb) 2.5 mg Q2HR NEB PRN NEB 11/01/16 15:45 11/07/16 10:31 (Pill Splitter) 1 ea UNSCH PRN OTHER 11/02/16 13:45 (Lactinex) 1 tab TID PO 11/03/16 18:00 11/08/16 17:33 (Diflucan) 100 mg DAILY PO 11/03/16 14:00 11/08/16 07:56 (Levemir Inj) 26 units BID@0800,2000 SQ 11/04/16 20:00 11/08/16 20:41 (Trandate Inj) 10 mg Q1HR PRN IV PUSH 11/04/16 10:45 11/09/16 03:22 (Nitroglycerin 2% Oint) 2 inch Q6HR PRN TOPICAL 11/04/16 10:45 (Free Water) VOLUME: 200 ML Q6HR NG 11/04/16 18:00 11/09/16 06:00 (Norvasc) 10 mg DAILY PO 11/05/16 09:00 11/08/16 07:56 (Lopressor) 50 mg Q8HR PO 11/05/16 14:00 11/09/16 06:02 Pharmacy Profile Note 0 ml @ 0 mls/hr UNSCH OTHER 11/05/16 12:30 (D50w (Syr) Inj) 50 ml UNSCH PRN IV PUSH 11/05/16 15:00 (Glucagon Inj) 1 mg UNSCH PRN OTHER 11/05/16 15:00 (NovoLIN R SUPPLEMENTAL SCALE) 1 Q6H SQ 11/05/16 15:00 11/09/16 03:00 (Catapres) 0.1 mg Q8HR PO 11/06/16 08:15 11/09/16 06:02 (Pepcid) 20 mg BID PO 11/06/16 21:00 11/08/16 20:41 Levetriacetam 500 mg/Sodium Chloride 105 ml @ 420 mls/hr Q12H IV 11/06/16 15:00 11/09/16 02:49 (Duoneb Neb) 1 ampule Q6HR NEB NEB 11/07/16 16:00 11/09/16 04:17 (Sodium Chloride 3% Neb) 2 ml Q6HR NEB NEB 11/07/16 16:00 11/14/16 15:59 11/09/16 04:17 (fentaNYL INJ) 50 mcg Q1HR PRN IV 11/07/16 14:00 11/09/16 02:50 Vancomycin HCl 1500 mg/Sodium Chloride 515 ml @ 257.5 mls/ hr Q24H IV 11/09/16 01:00 11/09/16 01:43 Miscellaneous Information SPECIFIC LAB TO BE ONELIA... ONCE ONCE .XX 11/11/16 00:45 11/11/16 00:46 (ASP Crit: Doc allergy to Penicillin/ Cephalosp) 1 UNSCH X1 PRN .XX 11/08/16 12:45 11/09/16 12:44 (ASP Crit: Path resist to other, cult proven) 1 UNSCH X1 PRN .XX 11/08/16 12:45 11/09/16 12:44 ([facility]) 1 UNSCH X1 PRN XX 11/08/16 12:45 11/09/16 12:44 Meropenem 1000 mg/ Sodium Chloride 100 ml @ 200 mls/hr Q8H IV 11/08/16 15:00 11/09/16 06:02 ([facility]) 1 UNSCH X1 PRN XX 11/08/16 12:45 11/09/16 12:44 Allergies Allergies Coded Allergies propoxyphene (Unverified Allergy, Severe, 09/25/16) amoxicillin (Verified Allergy, Unknown, 10/28/16) Review of Systems All other ROS: Unable to obtain Exam I&O / VS Vital Signs Date Time Temp Pulse Resp B/P (MAP) Pulse Ox O2 Delivery O2 Flow Rate FiO2 11/09/16 04:35 100 35 11/09/16 02:00 113 11/09/16 00:15 100 35 11/09/16 00:00 97 11/09/16 00:00 99.5 97 24 165/76 (105) 100 11/09/16 00:00 35 11/08/16 22:00 112 11/08/16 21:18 98 35 11/08/16 20:00 101.9 118 48 156/72 (100) 100 11/08/16 20:00 118 11/08/16 20:00 35 11/08/16 18:00 121 11/08/16 17:33 25 11/08/16 16:52 93 35 11/08/16 16:00 35 11/08/16 16:00 102.4 110 22 147/70 (95) 96 11/08/16 16:00 110 11/08/16 14:00 97 11/08/16 12:00 126 11/08/16 12:00 103.1 126 20 150/67 (94) 100 11/08/16 12:00 35 11/08/16 11:50 96 35 11/08/16 10:02 35 11/08/16 10:01 35 11/08/16 10:00 122 11/08/16 09:46 35 11/08/16 09:46 35 11/08/16 08:49 100 35 11/08/16 08:00 100.7 92 21 163/76 (105) 100 11/08/16 08:00 92 11/08/16 08:00 35 Exam Comments intubated, short, obese, alerts, not following, will grimace, questionable blink to threat, eomi, ou 3-2mm, no ptosis, no ext movement, no clonus, planter flexor Objective Micro and Labs Date/Time Source Procedure Growth Status 11/06/16 09:05 Blood Peripheral Aerobic Blood Culture - Preliminary NO GROWTH IN 2 DAYS Resulted 11/06/16 09:05 Blood Peripheral Anaerobic Blood Culture - Preliminary NO GROWTH IN 2 DAYS Resulted 11/06/16 15:50 Sputum Endotracheal Gram Stain - Final Resulted 11/06/16 15:50 Sputum Culture - Preliminary Escherichia Coli Esbl Positive Pseudomonas Aeruginosa Resulted 11/06/16 17:00 Urine Catheterized Urine Urine Culture - Preliminary Yeast-Id To Follow Resulted 10/28/16 17:00 Other - Final Complete Jarett Sampson MD Nov 09, 2016 06:53
[2016-11-09] MEDS: CHLORHEXIDINE 0.12% (ORAL KIT) 15 ML CUP MT SCH ×2 (08:00→20:00)
[2016-11-09] MEDS: INSULIN DETEMIR 100 UNITS/ML VIAL SQ SCH ×2 (08:00→20:35)
--- NOTE | 2016-11-09 08:01 | HHI.CCPN ---
Subjective Remarks/Hospital Course HPI 70-year-old retirement resident with a medical history significant for dementia, diabetes mellitus, hyperlipidemia, reactive airway disease who was found to have altered mental status at the retirement for which EMS was called. Patient was noted to have O2 sats in the 70s. She was very apneic with her head slumped down. Paramedics report of having to hold her head up to have her breathe with the nebulizer treatment in place. Patient was given Solu- Medrol 125 mg IV and 4 nebulizer treatments prior to arrival in the ER for documentation. On arrival in the ER patient was extremely lethargic however was reportedly able to answer some questions. Patient was felt not to be able to protect her airway as well as very hypoxic and hence was intubated by ER physician and placed on mechanical ventilation. Chest x-ray in the ER showed bilateral infiltrates and possible cavitary lesion. She was accepted for admission by critical care medicine service. CT chest was ordered by ER physician. When I evaluated the patient in the ER she was sedated with propofol , orally intubated on mechanical ventilation. History was obtained by reviewing records and discussion with ER physician. 10/29 Patient is sedated with Diprivan and intubated. Afebrile. 10/30 Patient remains sedated and intubated. T:99.7 last night. 10/31: Intubated sedated. CT reviewed and discussed with Dr. Madison. Will consider Bronch. Also check thyroid US and possible biopsy. Check thyroid studies. Also consult palliative care as patient has underlying dementia with NPH and possible malignancy. 11/01: Tmax 100.3. Plan for bronchoscopy at 3:00 today. Noted thyroid masses chronic/since 2011. Tolerating tube feeding. Positive BM. 11/02: Tmax 100.1. Status post bronchoscopy yesterday with removal of mucous plugging. Tolerating tube feeds. Positive BM. Weaning propofol sedation today. 11/03: Tmax 100.6. Noted elevated leukocytosis. Weaning sedation. Positive BM. Tolerate tube feeding. 11/04: Afebrile. UA negative. C. difficile pending. 4 bowel movement overnight. Tolerating tube feeding. No new issues. 11/05 Patient is sedated with Diprivan and intubated. T:100.7. Given Labetalol 10mg IV x3 for hypertension overnight. 11/06 No events overnight. Off sedation. T: 101.5 last night. Subjective 11/07: Tmax 102. Currently 100.6. Continues off sedation. Eyes are open to voice but not falling commands. Noted MRI brain unchanged. MRI C-spine revealed no cord compression or cord abnormality's. Severe C5/6 right foraminal narrowing 11/08: Remains intubated sedated, intermittently opens eyes. 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 Prior to making a decision to withdraw from life support, the nut grinder is requesting a letter from the covering physicians certifying that she is hospice appropriate and palliative rather than aggressive treatment is appropriate. Dr. Madison thinks hospice is appropriate but also recommends Oncology input. I have consulted medical oncology 11/09 Patient remains intubated, on no sedation, Tmax 103.1 gets tachypneic with CPAP trials Objective Vital Signs Date Time Temp Pulse Resp B/P (MAP) Pulse Ox O2 Delivery O2 Flow Rate FiO2 11/09/16 06:00 101 11/09/16 04:35 100 35 11/09/16 04:00 100.3 34 163/72 (102) Intake and Output 11/09/16 11/09/16 11/10/16 08:00 16:00 00:00 Intake Total 1539 ml Balance 1539 ml Result Diagram: 11/07/16 0406 11/08/16 0050 Imaging Last Impressions Chest X-Ray 11/07/16 0000 Signed Impressions: Service Date/Time: Monday, November 07, 2016 04:53 - CONCLUSION: 1. Slight increase in basilar airspace disease since November 05. Endotracheal tube and nasogastric tube unchanged. Nestor Palomino MD Cervical Spine MRI 11/06/16 0000 Signed Impressions: Service Date/Time: Sunday, November 06, 2016 21:36 - CONCLUSION: 1. Multilevel degenerative changes of the cervical spine as above, especially C5/ C6 and C6/C7. 2. Mild to moderate spinal stenosis and severe right foraminal stenosis at C5/C6. 3. Mild spinal stenosis and moderate right foraminal stenosis at C6/C7. 4. No cord compression or cord signal abnormality. 5. No fracture or subluxation. 6. Large nodule of the left lobe of the thyroid gland. There are also upper limits of normal bilateral cervical lymph nodes. Keshav Burks MD Brain MRI 11/06/16 0000 Signed Impressions: Service Date/Time: Sunday, November 06, 2016 21:36 - CONCLUSION: 1. No change or acute abnormality demonstrated. 2. Atrophy, ventriculomegaly and chronic white matter changes are again noted. Keshav Burks MD Thyroid Ultrasound 10/31/16 0000 Signed Impressions: Service Date/Time: Monday, October 31, 2016 11:47 - CONCLUSION: Large complex mass right lobe of the thyroid. Minimally increased in size since Jacoby Torre MD FACR Abdomen X-Ray 10/29/16 0000 Signed Impressions: Service Date/Time: Saturday, October 29, 2016 15:32 - CONCLUSION: Negative for radiopaque foreign bodies. Jacoby Torre MD FACR Chest CT 10/28/161813 Signed Impressions: Service Date/Time: Friday, October 28, 2016 18:28 - CONCLUSION: 1. Abnormality on chest radiograph corresponds to a 3.4 x 3.5 cm central right hilar mass/adenopathy with associated postobstructive airspace consolidation in the inferior right upper lobe. There are at least 2 additional pulmonary nodules measuring 13 x 8 mm in the anterior right middle lobe and 8 x 8 mm in the anterior right upper lobe near the apex. 2. 3.9 x 4.3 cm heterogeneous nodule in the right thyroid gland. No significant regional cervical adenopathy. 3. Patchy bilateral lower lobe air space consolidation and diffuse ground glass opacities. Differential considerations include ARDS versus infection versus aspiration. 1. Tyler Selby MD Head CT 10/28/16 0000 Signed Impressions: Service Date/Time: Friday, October 28, 2016 20:44 - CONCLUSION: 1. No bleed or evidence of acute infarction. 2. Atrophy and chronic white matter changes. 3. Moderate ventriculomegaly, beyond that expected for the degree of atrophy. Normal pressure hydrocephalus would be in the differential. Keshav Burks MD Objective Remarks GENERAL: 71-year-old female, critically ill currently orotracheally intubated SKIN: Warm and dry. HEAD: Atraumatic. Normocephalic. EYES: Pupils equal and round about 3 mm bilaterally and reactive. No scleral icterus. No injection or drainage. ENT: No nasal bleeding or discharge. Orotracheally intubated NECK: Trachea midline. No JVD. Right-sided thyromegaly/palpable mass noted CARDIOVASCULAR: Tachycardic, RR. S1, S2 no S4. Without murmur RESPIRATORY: Diminished breath sounds right upper lobe. Coarse crackles appreciated bilaterally. Also bilateral course rhonchi GASTROINTESTINAL: Abdomen soft, non-tender, nondistended. Hepatic and splenic margins not palpable. MUSCULOSKELETAL: Extremities bilateral trace nonpitting lower extremity edema. No obvious deformities. NEUROLOGICAL: Positive gag. Positive corneal reflex. Not following commands upper or lower extremity. Upward toes. A/P Assessment and Plan Plan: Neuro/Psych: Depression/anxiety Toxic metabolic encephalopathy Ventriculomegaly History of dementia Off sedation, monitor neuro status. EEG 11/06 revealed triphasic sway/diffuse sharp waves likely moderate encephalopathy cannot rule out proclivity of seizure Neuro eval for encephalopathy with Dr. Sampson noted CT brain: Moderate ventriculomegaly, beyond that expected for the degree of atrophy. MRI confirms. Neurosurgery is following- Dr. Hernandez No acute intervention Repeat MRI brain 11/06 stable for ventriculomegaly. No other acute findings Currently holding home medications clonazepam 0.5 mg twice a day and quetiapine 25 mg at night On levetiracetam 500 mg IV twice a day per neurology's EEG above As needed fentanyl 50 every 8 hours when necessary pain CV: Hypertension Dyslipidemia On Lopressor 50mg Q8, amlodipine 10mg daily, increase Clonidine 0.2mg Q8, - Monitor HR and BP keep MAP>65mmHg Home medication for hypertension include amlodipine 10 mg by mouth daily and carvedilol 25 mg by mouth twice a day As needed hydralazine and labetalol and Nitropaste for hypertension Currently holding atorvastatin 40 mg by mouth daily for dyslipidemia. Pulm Acute hypoxemic respiratory failure possibly secondary to post obstructive pneumonia Squamous cell carcinoma of Lung [facility] 14/02/15/34. Ventilator bundle Albuterol/ipratropium aerosols every 6 hours with albuterol aerosols every 2 hours. Dyspnea. At 3% saline aerosols every 6 hours [address] chest reviewed revealed 3.4 x 2.5 right hilar mass with post discharge pneumonia in the right upper lobe. Right middle lobe mass. Pulm is following- Dr. Madison, s/p bronch with BAL 11/01. Cytology positive ( squamous cell carcinoma Renal/: Hypernatremia - resolved Monitor renal function, I/O's, electrolytes replacement per protocol. On free water 200 cc every 6 hours tube feeds GI/liver: Mild protein calorie malnutrition Continue with Glucerna 1.5 at 40 cc an hour On famotidine 20mg BID for GI prophylaxis ID: Escherichia coli UTI Postobstructive pneumonia Continue with abx per ID ( Vancomycin, Aztreonam, Merrem, Diflucan) monitor for signs of infections ( Fever, WBC). Panculture today, replace Jang Follow up on cultures and bronchoscopy 11/01- Yeast species BC 11/04: NGTD Blood cultures 2 - 11/06 - NGTD Sputum 11/06 ESBL E Coli and PSAE. Strep pneumonia urinary Ag negative. ID is following- Dr. 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 Patient has hilar mass with pulmonary nodules, also thyroid mass. Seen by Oncology-Dr. Xavier patient is not candidate for surgery, chemnoradiation give poor performance status, hospice was recommended. Palliative care is following Endocrine: Diabetes mellitus Currently on insulin detemir 26 units twice a day. Right thyroid mass 6.8 cm/chronic On SSI high scale Novulin R for glycemic control. Patient is on insulin glargine at home Prophylaxis: Famotidine 20 mg twice a day via OG tube, SCDs/subcutaneous heparin Check labs today CCT 30 mins Remains critically ill now with ESBL E Coli and PSAE pneumonia. D/W ID. 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
[2016-11-09] MEDS: HEPARIN SODIUM - SQ 10,000 UNITS/ML VIAL SQ SCH ×2 (08:42→15:17)
[2016-11-09] MEDS: AZTREONAM INJ 2,000 MG in SODIUM CHLORIDE 0.9% INJ 100 ML IV SCH ×2 (08:42→15:17)
[2016-11-09] MEDS: SODIUM CHLORIDE 0.9% FLUSH 10 ML FLUSH IV FLUSH SCH ×2 (08:42→22:25)
[2016-11-09] MEDS: LACTOBACILLUS ACIDOPHILUS TAB PO SCH ×3 (08:43→17:34)
[2016-11-09] MEDS: FLUCONAZOLE 100 MG TAB PO SCH (08:43)
[2016-11-09] MEDS: FAMOTIDINE 20 MG TAB PO SCH ×2 (08:43→22:24)
[2016-11-09] MEDS: MUPIROCIN 2% OINT 1 APPLIC/GM SYR EACH NARE SCH ×2 (08:44→20:34)
[2016-11-09] MEDS: ACETAMINOPHEN 325 MG TAB PO PRN (09:07)
[2016-11-09 10:16] LABS: BACTERIA, URINE OCC /hpf; BLOOD, URINE TRACE (NEG); GLUCOSE,URINE NEG (NEG); KETONE, URINE NEG (NEG); MUCUS URINE FEW /lpf (OCC); NITRITE,URINE NEG (NEG); PH, URINE 5.5 (5.0-8.5); URINE COLOR YELLOW (YELLW/STRAW)
[2016-11-09 10:19] LABS: COMMENT (UR) CATH-CULTURE IND; CULTURE IF INDICATED CATH CULTURE IND
--- NOTE | 2016-11-09 10:41 | HHI.IDPN ---
Note Infectious Disease Note Patient on the vent. Off sedation and opens eyes. Appears to be following commands. Secretions remain thick. Bronch pathology shows squamous cell carcinoma. PAST MEDICAL HISTORY 1. Dementia. 2. Diabetes mellitus. 3. Hypertension. 4. Thyroid disease. 5. Anxiety, depression. 6. Arthritis. ALLERGIES AMOXICILLIN, PROPOXYPHENE. ANTIBIOTICS: Azactam. Diflucan. Flagyl. Vancomycin. OBJECTIVE: Vital Signs Date Time Temp Pulse Resp B/P (MAP) Pulse Ox O2 Delivery O2 Flow Rate FiO2 11/09/16 08:43 100 35 11/09/16 06:00 101 11/09/16 04:35 100 35 11/09/16 04:00 35 11/09/16 04:00 104 11/09/16 04:00 100.3 104 34 163/72 (102) 100 11/09/16 02:00 113 11/09/16 00:15 100 35 11/09/16 00:00 97 11/09/16 00:00 99.5 97 24 165/76 (105) 100 11/09/16 00:00 35 11/08/16 22:00 112 11/08/16 21:18 98 35 11/08/16 20:00 101.9 118 48 156/72 (100) 100 11/08/16 20:00 118 11/08/16 20:00 35 11/08/16 18:00 121 11/08/16 17:33 25 11/08/16 16:52 93 35 11/08/16 16:00 35 11/08/16 16:00 102.4 110 22 147/70 (95) 96 11/08/16 16:00 110 11/08/16 14:00 97 11/08/16 12:00 126 11/08/16 12:00 103.1 126 20 150/67 (94) 100 11/08/16 12:00 35 11/08/16 11:50 96 35 Laboratory Tests Test 11/08/16 00:50 Creatinine 0.87 MG/DL Estimat Glomerular Filtration Rate 64 ML/MIN Microbiology Date/Time Source Procedure Growth Status 11/09/16 09:30 Sputum Endotracheal Gram Stain Pending Received 11/09/16 09:30 Sputum Endotracheal Sputum Culture Pending Received 11/06/16 15:50 Sputum Endotracheal Gram Stain - Final Resulted 11/06/16 15:50 Sputum Culture - Preliminary Escherichia Coli Esbl Positive Pseudomonas Aeruginosa Staphylococcus Aureus Resulted 11/09/16 09:30 Urine Catheterized Urine Urine Culture Pending Received 11/06/16 17:00 Urine Catheterized Urine Urine Culture - Preliminary Yeast-Id To Follow Resulted IMAGING: Chest X-Ray 11/07/16 0000 Signed Impressions: Service Date/Time: Monday, November 07, 2016 04:53 - CONCLUSION: 1. Slight increase in basilar airspace disease since November 05. Endotracheal tube and nasogastric tube unchanged. Nestor Palomino MD Cervical Spine MRI 11/06/16 0000 Signed Impressions: Service Date/Time: Sunday, November 06, 2016 21:36 - CONCLUSION: 1. Multilevel degenerative changes of the cervical spine as above, especially C5/ C6 and C6/C7. 2. Mild to moderate spinal stenosis and severe right foraminal stenosis at C5/C6. 3. Mild spinal stenosis and moderate right foraminal stenosis at C6/C7. 4. No cord compression or cord signal abnormality. 5. No fracture or subluxation. 6. Large nodule of the left lobe of the thyroid gland. There are also upper limits of normal bilateral cervical lymph nodes. Keshav Burks MD Brain MRI 11/06/16 0000 Signed Impressions: Service Date/Time: Sunday, November 06, 2016 21:36 - CONCLUSION: 1. No change or acute abnormality demonstrated. 2. Atrophy, ventriculomegaly and chronic white matter changes are again noted. Keshav Burks MD Chest X-Ray 11/05/16 0600 Signed Impressions: Service Date/Time: Saturday, November 05, 2016 03:32 - CONCLUSION: 1. Mild basilar airspace disease similar to November 03. Support apparatus in good position. Nestor Palomino MD PHYSICAL EXAMINATION GENERAL: On the ventilator. No acute distress. NECK: Obese, fullness at the right lateral neck. LUNGS: Basilar rhonchi right. HEART: Nl S1S2, No audible murmurs or rubs or gallops. ABDOMEN: Obese, soft, No tenderness. EXTREMITIES: No clubbing or cyanosis or edema. SKIN: No rash. NEURO: Awake. Appears to be following simple commands but slow to respond. PSYCHE: Unable to assess. IMPRESSION 1. Bilateral Pneumonia with hilar cavitary mass. Pseudomonas and ESBL e. coli in sputum. Squamous cell cancer. 2. Acute respiratory failure. 3. UTI. 4. Fever and increased WBC. 5. Encephalopathy. RECOMMENDATIONS 1. Continue Vancomycin. 2. Continue aztreonam. 3. Add Meropenem. 4. Continue Diflucan. Yeast in bronch. ? significance. 5. Monitor temperature. 6. Monitor cultures. I will be OOT from tomorrrow - other ID doctors covering. Francisco Zarate MD Nov 09, 2016 10:41
[2016-11-09 10:51] LABS: AUTOMATED NEUTROPHIL # 11.1 TH/MM3 (1.8-7.7); BASOPHIL # 0.1 TH/MM3 (0-0.2); BASOPHIL % 0.9 % (0.0-2.0); EOSINOPHIL # 0.4 TH/MM3 (0-0.4); EOSINOPHIL % 2.3 % (0.0-4.0); HEMATOCRIT 28.2 % (35.0-46.0); HEMO FLAGS DIFF FINAL; LYMPH % 13.4 % (9.0-44.0); MEAN CELL VOLUME 89.1 FL (80.0-100.0); MEAN CORPUSCULAR HEMOGLOBIN 29.1 PG (27.0-34.0); MEAN CORPUSCULAR HGB CONC 32.7 % (32.0-36.0); MONO % 9.1 % (0.0-8.0); NEUT % 74.3 % (16.0-70.0); PLATELET COUNT 351 TH/MM3 (150-450); RED BLOOD COUNT 3.16 MIL/MM3 (4.00-5.30); RED CELL DISTRIBUTION WIDTH 14.4 % (11.6-17.2)
[2016-11-09 11:12] LABS: ANION GAP 7 MEQ/L (5-15); AST (GOT) 17 U/L (15-37); BICARBONATE 20.7 MEQ/L (21.0-32.0); BLOOD UREA NITROGEN 26 MG/DL (7-18); CHLORIDE 108 MEQ/L (98-107); GLOMERULAR FILTRATION RATE 84 ML/MIN (>89); MAGNESIUM 2.4 MG/DL (1.5-2.5); POTASSIUM 3.9 MEQ/L (3.5-5.1); SODIUM (NA) 136 MEQ/L (136-145)
[2016-11-09 11:14] LABS: ALT (GPT) 16 U/L (10-53)
[2016-11-09 11:16] LABS: ALKALINE PHOSPHATASE 98 U/L (45-117); TOTAL BILIRUBIN ADULT 0.2 MG/DL (0.2-1.0)
--- NOTE | 2016-11-09 15:51 | HHI.HCPN ---
Reason for visit a. To assist with evaluation and management of symptoms including: Respiratory distress, Debility. b. To assist medical decision maker(s) with: better understanding of current medical conditions; weighing benefits/burdens of medical treatment options; making medical treatment decisions. (Sydnee Morales) Subjective/Interval History Ms Dalton is a 70 year old female with a medical history of diabetes mellitus, dementia, thyroid disease, anxiety, depression and hyperlipemia, and reactive airway disease. Patient presented to the ED 10/28/16 via EMS after complaining of shortness of breath and intubated due to acute hypoxemic respiratory failure. She has failed all attempts at vent weaning and remains intubated. During her hospitalization she was diagnosed with normal pressure hydrocephalus/ moderate ventriculomegaly, pulmonary nodules concerning for malignancy, with cytology confirming squamous cell carcinoma, severe sepsis, suspected aspiration pneumonia and thyroid mass. Palliative care consulted for further clarifications of goals of care given the above. Patient has a guardian/compliance representative dealer from [place] [facility], [place], who has been working with the stitcher special machine regarding patient's goals of care. Prior to making a decision to stop aggressive care and pursuing hospice care, the stitcher special machine is requesting a letter from the covering physicians certifying that she is hospice appropriate and would benefit from palliative rather than aggressive treatment. Oncology Dr. Xavier consulted 11/08/16, recommended only supportive care and hospice care. Patient is not a candidate for surgery, radiation therapy, chemotherapy and immunotherapy. Patient remains in ICU, intubated and mechanically ventilated. FIO2 35%. O2 saturation high 90s. Patient failing CPAP trials, gets tachypneic. Sedation has been off since 11/05. Patient awake and alert, tracking with her eyes,moving her lips, unsure if attempting to chew tube or speak. Did not follow commands but localizes to pain with bilateral lower extremities. Patient remains febrile with a low grade temp, TMax 100.3. Laboratory workup today revealing WBC 15.0, hemoglobin 9.2, hematocrit 28.2, platelet count 351, sodium 136, potassium 3.9, BUN/creatinine 26/0.69, albumin 1.7. Urine culture and sensitivity, sputum culture ordered. HR 70s-low 100s. SBP 130s-160s. Case discussed with Dr. Zarate- THADDEUS and Dr. Wasserman Critical Care Physician. Notified physicians about letter requested by patient`s guardian by covering physicians certifying that patient is hospice appropriate and palliative rather than pursuing aggressive treatment. Dr. Wasserman feels that patient should be given the weekend to see if she can be medically extubated. . (Sydnee Morales) Advance Directives Living Will: Never completed Health Care Surrogate: Never completed Durable Power of Patient Support Representative: Never completed (Sydnee Morales) Advance Directive Specifics Health Care Surrogate(s): Patient has a court appointed guardian, [place] [facility]. . (Sydnee Morales) Objective Vital Signs Date Time Temp Pulse Resp B/P (MAP) Pulse Ox O2 Delivery O2 Flow Rate FiO2 11/09/16 14:00 35 11/09/16 14:00 78 11/09/16 12:00 35 11/09/16 12:00 103 11/09/16 12:00 99.7 103 19 137/64 (88) 99 11/09/16 11:59 99 35 11/09/16 10:00 35 11/09/16 10:00 105 11/09/16 08:43 100 35 11/09/16 08:00 100.0 84 30 114/56 (75) 99 11/09/16 08:00 84 11/09/16 08:00 35 11/09/16 06:00 101 11/09/16 04:35 100 35 11/09/16 04:00 35 11/09/16 04:00 104 11/09/16 04:00 100.3 104 34 163/72 (102) 100 11/09/16 02:00 113 11/09/16 00:15 100 35 11/09/16 00:00 97 11/09/16 00:00 99.5 97 24 165/76 (105) 100 11/09/16 00:00 35 11/08/16 22:00 112 11/08/16 21:18 98 35 11/08/16 20:00 101.9 118 48 156/72 (100) 100 11/08/16 20:00 118 11/08/16 20:00 35 11/08/16 18:00 121 11/08/16 17:33 25 11/08/16 16:52 93 35 11/08/16 16:00 35 11/08/16 16:00 102.4 110 22 147/70 (95) 96 11/08/16 16:00 110 Intake & Output 11/09/16 11/09/16 07:00 19:00 Intake Total 1739 ml 200 ml Balance 1739 ml 200 ml Intake IV Total 805 ml 200 ml Tube Feeding 414 ml Tube Irrigant 120 ml Other 400 ml # Voids 2 # Bowel Movements 2 Physical Exam CONSTITUTIONAL/GENERAL: This is an elderly, ill looking patient, in no acute distress. Intubated. TUBES/LINES/DRAINS:PIV, ETT, OGT, Jang catheter, SCDs EYES: Pupils equal and round and reactive. No scleral icterus. No injection or drainage. Fundi not examined. ENT: Nose without bleeding or purulent drainage. Orally intubated. NECK: Trachea midline. Supple, nontender. CARDIOVASCULAR: Regular rate and rhythm without murmurs, gallops, or rubs. No JVD. Peripheral pulses symmetric. RESPIRATORY/CHEST: Symmetric, unlabored respirations. Rhonchi and wheezy to auscultation. Breath sounds equal bilaterally. GASTROINTESTINAL: Abdomen soft, round, large. No guarding. Bowel sounds present. GENITOURINARY: Without palpable bladder distension. Jang catheter in place. MUSCULOSKELETAL: Extremities without clubbing, cyanosis. Edema to bilateral extremities. No mottling or clubbing. NEUROLOGICAL: Intubated. Not following commands. Awake,tracking with her eyes, localizes with bilateral lower extremities. Trying to speak. PSYCHIATRIC:Unable to assess, patient intubated, not sedated. Calm. . (Sydnee Morales) Diagnostic Tests Laboratory Laboratory Tests Test 11/06/16 17:00 11/06/16 19:49 11/07/16 04:06 11/08/16 00:50 Urine Color YELLOW (YELLW/STRAW) Urine Turbidity HAZY (CLEAR) Urine pH 5.5 (5.0-8.5) Urine Specific [place] 1.023 (1.002-1.035) Urine Protein 100 mg/dL (NEG-TRACE) Urine Glucose (UA) 150 mg/dL (NEG) Urine Ketones NEG mg/dL (NEG) Urine Occult Blood TRACE (NEG) Urine Nitrite NEG (NEG) Urine Bilirubin NEG (NEG) Urine Urobilinogen LESS THAN 2.0 MG/DL (LESS Urine Leukocyte Esterase SMALL (NEG) Urine RBC 4 /hpf (0-3) Urine WBC 5 /hpf (0-5) Urine Squamous Epithelial Cells 12 /hpf (0-5) Urine Amorphous Sediment RARE Urine Bacteria FEW /hpf (NONE) Microscopic Urinalysis Comment CATH-CULTURE IND Erythrocyte Sedimentation Rate 79 mm/hr (0-30) Ammonia 23 MCMOL/L (11-32) Vancomycin Level Trough 26.4 MCG/ML (5.0-10.0) 20.5 MCG/ML (5.0-10.0) Rapid Plasma Reagin NON-REACTIVE (NON-REACTVE) White Blood Count 14.4 TH/MM3 (4.0-11.0) Red Blood Count 3.34 MIL/MM3 (4.00-5.30) Hemoglobin 9.8 GM/DL (11.6-15.3) Hematocrit 29.7 % (35.0-46.0) Mean Corpuscular Volume 88.9 FL (80.0-100.0) Mean Corpuscular Hemoglobin 29.4 PG (27.0-34.0) Mean Corpuscular Hemoglobin Concent 33.1 % (32.0-36.0) Red Cell Distribution Width 14.6 % (11.6-17.2) Platelet Count 276 TH/MM3 (150-450) Mean Platelet Volume 8.8 FL (7.0-11.0) Neutrophils (%) (Auto) 70.9 % (16.0-70.0) Lymphocytes (%) (Auto) 14.3 % (9.0-44.0) Monocytes (%) (Auto) 12.1 % (0.0-8.0) Eosinophils (%) (Auto) 2.0 % (0.0-4.0) Basophils (%) (Auto) 0.7 % (0.0-2.0) Neutrophils # (Auto) 10.2 TH/MM3 (1.8-7.7) Lymphocytes # (Auto) 2.1 TH/MM3 (1.0-4.8) Monocytes # (Auto) 1.7 TH/MM3 (0-0.9) Eosinophils # (Auto) 0.3 TH/MM3 (0-0.4) Basophils # (Auto) 0.1 TH/MM3 (0-0.2) CBC Comment DIFF FINAL Differential Comment Blood Urea Nitrogen 26 MG/DL (7-18) Creatinine 0.67 MG/DL (0.50-1.00) 0.87 MG/DL (0.50-1.00) Random Glucose 78 MG/DL (74-106) Calcium Level 8.2 MG/DL (8.5-10.1) Phosphorus Level 3.1 MG/DL (2.5-4.9) Magnesium Level 2.4 MG/DL (1.5-2.5) Sodium Level 142 MEQ/L (136-145) Potassium Level 3.9 MEQ/L (3.5-5.1) Chloride Level 112 MEQ/L (98-107) Carbon Dioxide Level 21.6 MEQ/L (21.0-32.0) Anion Gap 8 MEQ/L (5-15) Estimat Glomerular Filtration Rate 87 ML/MIN (>89) 64 ML/MIN (>89) Test 11/09/16 09:30 11/09/16 09:45 Urine Color YELLOW (YELLW/STRAW) Urine Turbidity CLOUDY (CLEAR) Urine pH 5.5 (5.0-8.5) Urine Specific [place] 1.018 (1.002-1.035) Urine Protein 100 mg/dL (NEG-TRACE) Urine Glucose (UA) NEG mg/dL (NEG) Urine Ketones NEG mg/dL (NEG) Urine Occult Blood TRACE (NEG) Urine Nitrite NEG (NEG) Urine Bilirubin NEG (NEG) Urine Urobilinogen LESS THAN 2.0 MG/DL (LESS Urine Leukocyte Esterase NEG (NEG) Urine RBC 3 /hpf (0-3) Urine WBC 5 /hpf (0-5) Urine Amorphous Sediment MOD Urine Bacteria OCC /hpf (NONE) Urine Mucus FEW /lpf (OCC) Microscopic Urinalysis Comment CATH-CULTURE IND White Blood Count 15.0 TH/MM3 (4.0-11.0) Red Blood Count 3.16 MIL/MM3 (4.00-5.30) Hemoglobin 9.2 GM/DL (11.6-15.3) Hematocrit 28.2 % (35.0-46.0) Mean Corpuscular Volume 89.1 FL (80.0-100.0) Mean Corpuscular Hemoglobin 29.1 PG (27.0-34.0) Mean Corpuscular Hemoglobin Concent 32.7 % (32.0-36.0) Red Cell Distribution Width 14.4 % (11.6-17.2) Platelet Count 351 TH/MM3 (150-450) Mean Platelet Volume 8.9 FL (7.0-11.0) Neutrophils (%) (Auto) 74.3 % (16.0-70.0) Lymphocytes (%) (Auto) 13.4 % (9.0-44.0) Monocytes (%) (Auto) 9.1 % (0.0-8.0) Eosinophils (%) (Auto) 2.3 % (0.0-4.0) Basophils (%) (Auto) 0.9 % (0.0-2.0) Neutrophils # (Auto) 11.1 TH/MM3 (1.8-7.7) Lymphocytes # (Auto) 2.0 TH/MM3 (1.0-4.8) Monocytes # (Auto) 1.4 TH/MM3 (0-0.9) Eosinophils # (Auto) 0.4 TH/MM3 (0-0.4) Basophils # (Auto) 0.1 TH/MM3 (0-0.2) CBC Comment DIFF FINAL Differential Comment Blood Urea Nitrogen 26 MG/DL (7-18) Creatinine 0.69 MG/DL (0.50-1.00) Random Glucose 120 MG/DL (74-106) Total Protein 6.1 GM/DL (6.4-8.2) Albumin 1.7 GM/DL (3.4-5.0) Calcium Level 8.3 MG/DL (8.5-10.1) Phosphorus Level 3.0 MG/DL (2.5-4.9) Magnesium Level 2.4 MG/DL (1.5-2.5) Alkaline Phosphatase 98 U/L (45-117) Aspartate Amino Transf (AST/SGOT) 17 U/L (15-37) Alanine Aminotransferase (ALT/SGPT) 16 U/L (10-53) Total Bilirubin 0.2 MG/DL (0.2-1.0) Sodium Level 136 MEQ/L (136-145) Potassium Level 3.9 MEQ/L (3.5-5.1) Chloride Level 108 MEQ/L (98-107) Carbon Dioxide Level 20.7 MEQ/L (21.0-32.0) Anion Gap 7 MEQ/L (5-15) Estimat Glomerular Filtration Rate 84 ML/MIN (>89) (Sydnee Morales) Result Diagram: 11/09/16 0945 11/09/16 0945 Microbiology Microbiology Date/Time Source Procedure Growth Status 11/09/16 09:58 Blood Peripheral Aerobic Blood Culture Pending Received 11/09/16 09:58 Blood Peripheral Anaerobic Blood Culture Pending Received 11/09/16 09:45 Blood Peripheral Aerobic Blood Culture Pending Received 11/09/16 09:45 Blood Peripheral Anaerobic Blood Culture Pending Received 11/09/16 09:30 Sputum Endotracheal Gram Stain - Final Resulted 11/09/16 09:30 Sputum Endotracheal Sputum Culture Pending Resulted 11/06/16 15:50 Sputum Endotracheal Gram Stain - Final Resulted 11/06/16 15:50 Sputum Culture - Preliminary Escherichia Coli Esbl Positive Pseudomonas Aeruginosa Staphylococcus Aureus Resulted 11/09/16 09:30 Urine Catheterized Urine Urine Culture Pending Received 11/06/16 17:00 Urine Catheterized Urine Urine Culture - Final Angelique Glabrata Complete Procedures 11/01/16 Bronchoscopy 10/28/16 Intubated and mechanically ventilated . (Sydnee Morales) Assessment and Plan Disease Oriented Problem List: (1) Acute respiratory failure requiring reintubation (2) Sepsis (3) Pulmonary nodules (4) Normal pressure hydrocephalus (5) Diabetes mellitus (6) Thyroid mass Symptom Scale: (1) Shortness of breath 0-10 Scale: Unable to quantify Comment: Intubated and mechanically ventilated. . (2) Debility 0-10 Scale: Unable to quantify Comment: Resident of a long-term facility, requiring assistance with ADLs. Progressive debility. Pertinent Non-Medical Issues Psychosocial: Patient is a resident at a termite [facility] care facility. As per prior medical records from 2007, patient has two sons who reside in the area. Per court appointed guardian, one son is and the other son who once served as patient`s DPOA was not fulfilling his duties and the court appointed a guardian for the patient. 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 Spiritual: Unable to obtain, patient is intubated on mechanical ventilation and sedated. Legal: Patient has a court appointed guardian. Ethical issues impacting care: Patient has a court appointed guardian.Patient has a signed DNR in 2010 by her son prior to court appointed guardian. . Important Contacts [place] [facility]- Court appointed guardian . Prognosis Ms Dalton is a 70 years old female with a medical history of diabetes mellitus, dementia, thyroid disease, anxiety, depression and hyperlipemia, and reactive airway disease. Patient presented to the ED 10/28/16 via EMS after complaining of shortness of breath. Patient was intubated and placed on mechanical ventilation secondary to acute hypoxemic respiratory failure. 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 Patient's prognosis is guarded. Patient at high risk for further complications, clinical decline and given the above. . Code Status: No Code Plan PLAN: Legal decision maker: Patient has COA guardian, [place]. Goals: 11/09/16 Currently aggressive. Prior to making a decision to stop aggressive care and pursuing hospice care, the stitcher special machine is requesting a letter from the covering physicians certifying that she is hospice appropriate and would benefit from palliative rather than aggressive treatment. Oncology Dr. Xavier consulted 11/08/16, recommended only supportive care and hospice care. Patient is not a candidate for surgery, radiation therapy, chemotherapy and immunotherapy.Dr. Wasserman feels that patient should be given the weekend to see if she can be medically extubated. CODE STATUS: No Code DNR SYMPTOMS: * Respiratory distress - patient remains intubated on mechanical ventilation. Patient failing CPAP trials, gets tachypneic. Patient more awake today. Sputum culture shows gram-negative rods on a preliminary culture. * Debility - admitted from a long term with significant debility, she has been on bed rest, mechanically ventilated. If goals remain aggressive care patient would benefit from physical therapy. Palliative care will continue to follow the patient during hospital course as condition evolves, to assist patient/decision-maker with understanding of their medical conditions, weighing benefits/burdens of treatment options, for clarification of goals of treatment. Additionally will assist with any symptoms of palliative concern (Sydnee Morales) Collaborating MD Comments Patient seen and examined with MIRA Finn. I agree with her assessment and plan. Discussed with Dr. Browning, patient appears more awake and alert today. It appears given her change in responsiveness that there may be a possibility that she may be able to be medically extubated and the coming days. After Nam and I agree that monitoring her over the weekend would be medically appropriate under the circumstances While it does not change her overall prognosis, if she is able to be medically extubated the Guardian a feel more comfortable with transition to comfort focused care hospice support. Palliative care will be available to draft a written letter should patient not be able to be medically extubated and the coming days for the Guardian/stitcher special machine to report medical condition/prognosis and recommendations for care. . (Mirlande Pak) Sydnee Morales Nov 09, 2016 15:51 Mirlande Pak Nov 09, 2016 17:33
--- NOTE | 2016-11-09 16:33 | HHI.PR ---
Subjective Remarks 70 YOWF with VDRF,Pneumonia, ? Aspiration Off Sedation. Low grade Fever Off sedation Neurology following Bronchial wash Sq cell ca Objective Vital Signs Vital Signs Date Time Temp Pulse Resp B/P (MAP) Pulse Ox O2 Delivery O2 Flow Rate FiO2 11/09/16 14:00 35 11/09/16 14:00 78 11/09/16 12:00 35 11/09/16 12:00 103 11/09/16 12:00 99.7 103 19 137/64 (88) 99 11/09/16 11:59 99 35 11/09/16 10:00 35 11/09/16 10:00 105 11/09/16 08:43 100 35 11/09/16 08:00 100.0 84 30 114/56 (75) 99 11/09/16 08:00 84 11/09/16 08:00 35 11/09/16 06:00 101 11/09/16 04:35 100 35 11/09/16 04:00 35 11/09/16 04:00 104 11/09/16 04:00 100.3 104 34 163/72 (102) 100 11/09/16 02:00 113 11/09/16 00:15 100 35 11/09/16 00:00 97 11/09/16 00:00 99.5 97 24 165/76 (105) 100 11/09/16 00:00 35 11/08/16 22:00 112 11/08/16 21:18 98 35 11/08/16 20:00 101.9 118 48 156/72 (100) 100 11/08/16 20:00 118 11/08/16 20:00 35 11/08/16 18:00 121 11/08/16 17:33 25 11/08/16 16:52 93 35 I/O 11/08/16 11/08/16 11/08/16 11/09/16 11/09/16 11/09/16 07:00 15:00 23:00 07:00 15:00 23:00 Intake Total 1641 ml 1326 ml 1739 ml 200 ml Balance 1641 ml 1326 ml 1739 ml 200 ml Intake IV Total 728 ml 405 ml 805 ml 200 ml Tube Feeding 413 ml 341 ml 414 ml Tube Irrigant 180 ml 120 ml Other 500 ml 400 ml 400 ml # Voids 5 3 2 # Bowel Movements 1 4 2 Result Diagram: 11/09/16 0945 11/09/16 0945 Objective Remarks GENERAL: MBMN WF, intubated, sedated SKIN: Warm and dry. HEAD: Normocephalic. EYES: No scleral icterus. No injection or drainage. NECK: Supple, trachea midline. No JVD or lymphadenopathy. CARDIOVASCULAR: Regular rate and rhythm without murmurs, gallops, or rubs. RESPIRATORY: Breath sounds equal bilaterally. No accessory muscle use. GASTROINTESTINAL: Abdomen soft, non-tender, nondistended. MUSCULOSKELETAL: No cyanosis, or edema. BACK: Nontender without obvious deformity. No CVA tenderness. A/P Assessment and Plan VDRF Pneumonia Aspiration DM Dementia Ventriculomegaly Squamous cell ca PLAN: Vent Support PRVC-AC 14, Fi02 35% Cont Abx Aerosol nebs SQ Heparin Code status DNR Prognosis poor Poor performance status, Hospice appropriate. Luis Madison MD Nov 09, 2016 16:33
[2016-11-10] VITALS (18 sets, daily range): BP systolic 112–177; BP diastolic 56–80; PULSE 78–106; RESP 25–46; TEMP 99.1–100.5; O2SAT 94–100
[2016-11-10] MEDS: VANCOMYCIN 1,500 MG/NS 500 ML IV SCH ×2 (00:11)
[2016-11-10] MEDS: AZTREONAM INJ 2,000 MG in SODIUM CHLORIDE 0.9% INJ 100 ML IV SCH ×4 (00:11→23:53)
[2016-11-10] MEDS: HEPARIN SODIUM - SQ 10,000 UNITS/ML VIAL SQ SCH ×3 (00:12→15:35)
[2016-11-10] MEDS: INSULIN NovoLIN REGULAR SUPPLEMENTAL SCALE SQ SCH ×3 (03:00→20:00)
[2016-11-10] MEDS: levETIRAcetam INJ 500 MG in SODIUM CHLORIDE 0.9% INJ 100 ML IV SCH ×2 (03:41→14:10)
[2016-11-10] MEDS: CHLORHEXIDINE GLUCONATE 2 % 1 PACK (2 CLOTHS) TOP SCH (03:41)
[2016-11-10] MEDS: RESP: ALBUTEROL 2.5 MG/IPRATROPIUM 0.5 MG NEB (SCH) NEB ×4 (04:00→22:00)
[2016-11-10] MEDS: RESP: SODIUM CHLORIDE 3% 4 ML NEB NEB SCH ×4 (04:33→22:25)
[2016-11-10] MEDS: [UNRECOGNIZED DRUG - REMARK] NG SCH ×4 (06:00→17:44)
[2016-11-10] MEDS: cloNIDine HCL 0.1 MG TAB PO SCH ×3 (06:01→21:09)
[2016-11-10] MEDS: MEROPENEM INJ 1,000 MG in SODIUM CHLORIDE 0.9% INJ 100 ML IV SCH ×3 (06:01→23:13)
[2016-11-10] MEDS: ARTIFICIAL TEARS OPTH SOLN 15 ML BTL EACH EYE SCH ×3 (06:01→21:08)
[2016-11-10] MEDS: METOPROLOL TARTRATE 50 MG TAB PO SCH ×3 (06:01→21:09)
[2016-11-10 06:07] LABS: AUTOMATED NEUTROPHIL # 10.3 TH/MM3 (1.8-7.7); BASOPHIL # 0.2 TH/MM3 (0-0.2); BASOPHIL % 1.2 % (0.0-2.0); EOSINOPHIL # 0.5 TH/MM3 (0-0.4); EOSINOPHIL % 3.3 % (0.0-4.0); HEMATOCRIT 26.8 % (35.0-46.0); LYMPH % 16.1 % (9.0-44.0); LYMPHOCYTE # 2.4 TH/MM3 (1.0-4.8); MEAN CELL VOLUME 88.9 FL (80.0-100.0); MEAN CORPUSCULAR HEMOGLOBIN 28.8 PG (27.0-34.0); MEAN CORPUSCULAR HGB CONC 32.4 % (32.0-36.0); NEUT % 70.4 % (16.0-70.0); PLATELET COUNT 390 TH/MM3 (150-450); RED BLOOD COUNT 3.01 MIL/MM3 (4.00-5.30); RED CELL DISTRIBUTION WIDTH 14.4 % (11.6-17.2); WHITE BLOOD COUNT 14.7 TH/MM3 (4.0-11.0)
[2016-11-10 06:20] LABS: HEMO FLAGS AUTO DIFF
[2016-11-10 06:29] LABS: BICARBONATE 20.8 MEQ/L (21.0-32.0)
[2016-11-10 07:48] LABS: BANDS 6 % (0-6); EOSINOPHILS 1 % (0-4); NEUTROPHIL # MANUAL DIFF 12.1 TH/MM3 (1.8-7.7); POLYS (SEG NEUTROPHILS) 76 % (16-70); WBC DIFF SAMPLE 100
[2016-11-10 07:49] LABS: PLATELET ESTIMATE SMEAR NORMAL (NORMAL); PLATELET MORPHOLOGY NORMAL (NORMAL); SCAN/DIFF FINAL DIFF MANUAL
--- NOTE | 2016-11-10 07:50 | HHI.CCPN ---
Subjective Remarks/Hospital Course HPI 70-year-old [facility] resident with a medical history significant for dementia, diabetes mellitus, hyperlipidemia, reactive airway disease who was found to have altered mental status at the [facility] for which EMS was called. Patient was noted to have O2 sats in the 70s. She was very apneic with her head slumped down. Paramedics report of having to hold her head up to have her breathe with the nebulizer treatment in place. Patient was given Solu- Medrol 125 mg IV and 4 nebulizer treatments prior to arrival in the ER for documentation. On arrival in the ER patient was extremely lethargic however was reportedly able to answer some questions. Patient was felt not to be able to protect her airway as well as very hypoxic and hence was intubated by ER physician and placed on mechanical ventilation. Chest x-ray in the ER showed bilateral infiltrates and possible cavitary lesion. She was accepted for admission by critical care medicine service. CT chest was ordered by ER physician. When I evaluated the patient in the ER she was sedated with propofol , orally intubated on mechanical ventilation. History was obtained by reviewing records and discussion with ER physician. 10/29 Patient is sedated with Diprivan and intubated. Afebrile. 10/30 Patient remains sedated and intubated. T:99.7 last night. 10/31: Intubated sedated. CT reviewed and discussed with Dr. Madison. Will consider Bronch. Also check thyroid US and possible biopsy. Check thyroid studies. Also consult palliative care as patient has underlying dementia with NPH and possible malignancy. 11/01: Tmax 100.3. Plan for bronchoscopy at 3:00 today. Noted thyroid masses chronic/since 2011. Tolerating tube feeding. Positive BM. 11/02: Tmax 100.1. Status post bronchoscopy yesterday with removal of mucous plugging. Tolerating tube feeds. Positive BM. Weaning propofol sedation today. 11/03: Tmax 100.6. Noted elevated leukocytosis. Weaning sedation. Positive BM. Tolerate tube feeding. 11/04: Afebrile. UA negative. C. difficile pending. 4 bowel movement overnight. Tolerating tube feeding. No new issues. 11/05 Patient is sedated with Diprivan and intubated. T:100.7. Given Labetalol 10mg IV x3 for hypertension overnight. 11/06 No events overnight. Off sedation. T: 101.5 last night. Subjective 11/07: Tmax 102. Currently 100.6. Continues off sedation. Eyes are open to voice but not falling commands. Noted MRI brain unchanged. MRI C-spine revealed no cord compression or cord abnormality's. Severe C5/6 right foraminal narrowing 11/08: Remains intubated sedated, intermittently opens eyes. Per palliative care , peanut sheller requesting letter of certification from treatment team. Prior to making a decision to withdraw from life support, the peanut sheller is requesting a letter from the covering physicians certifying that she is hospice appropriate and palliative rather than aggressive treatment is appropriate. Dr. Madison thinks hospice is appropriate but also recommends Oncology input. I have consulted medical oncology 11/09 Patient remains intubated, on no sedation, Tmax 103.1 gets tachypneic with CPAP trials 11/10 Patient is intubated had T:100.3 last night. Doesn't follow commands. Objective Vital Signs Date Time Temp Pulse Resp B/P (MAP) Pulse Ox O2 Delivery O2 Flow Rate FiO2 11/10/16 06:00 92 11/10/16 04:45 100 35 11/10/16 04:00 100.1 25 177/80 (112) Intake and Output 11/10/16 11/10/16 11/11/16 08:00 16:00 00:00 Intake Total 1697 ml Balance 1697 ml Result Diagram: 11/10/16 0553 11/10/16 0553 Other Results Laboratory Tests Test 11/09/16 09:30 11/09/16 09:45 11/10/16 05:53 Urine Color YELLOW Urine Turbidity CLOUDY Urine pH 5.5 Urine Specific [place] 1.018 Urine Protein 100 mg/dL Urine Glucose (UA) NEG mg/dL Urine Ketones NEG mg/dL Urine Occult Blood TRACE Urine Nitrite NEG Urine Bilirubin NEG Urine Urobilinogen LESS THAN 2.0 MG/DL Urine Leukocyte Esterase NEG Urine RBC 3 /hpf Urine WBC 5 /hpf Urine Amorphous Sediment MOD Urine Bacteria OCC /hpf Urine Mucus FEW /lpf Microscopic Urinalysis Comment CATH-CULTURE IND White Blood Count 15.0 TH/MM3 14.7 TH/MM3 Red Blood Count 3.16 MIL/MM3 3.01 MIL/MM3 Hemoglobin 9.2 GM/DL 8.7 GM/DL Hematocrit 28.2 % 26.8 % Mean Corpuscular Volume 89.1 FL 88.9 FL Mean Corpuscular Hemoglobin 29.1 PG 28.8 PG Mean Corpuscular Hemoglobin Concent 32.7 % 32.4 % Red Cell Distribution Width 14.4 % 14.4 % Platelet Count 351 TH/MM3 390 TH/MM3 Mean Platelet Volume 8.9 FL 8.4 FL Neutrophils (%) (Auto) 74.3 % 70.4 % Lymphocytes (%) (Auto) 13.4 % 16.1 % Monocytes (%) (Auto) 9.1 % 9.0 % Eosinophils (%) (Auto) 2.3 % 3.3 % Basophils (%) (Auto) 0.9 % 1.2 % Neutrophils # (Auto) 11.1 TH/MM3 10.3 TH/MM3 Lymphocytes # (Auto) 2.0 TH/MM3 2.4 TH/MM3 Monocytes # (Auto) 1.4 TH/MM3 1.3 TH/MM3 Eosinophils # (Auto) 0.4 TH/MM3 0.5 TH/MM3 Basophils # (Auto) 0.1 TH/MM3 0.2 TH/MM3 CBC Comment DIFF FINAL AUTO DIFF Differential Comment Blood Urea Nitrogen 26 MG/DL 28 MG/DL Creatinine 0.69 MG/DL 0.75 MG/DL Random Glucose 120 MG/DL 116 MG/DL Total Protein 6.1 GM/DL Albumin 1.7 GM/DL Calcium Level 8.3 MG/DL 8.4 MG/DL Phosphorus Level 3.0 MG/DL Magnesium Level 2.4 MG/DL Alkaline Phosphatase 98 U/L Aspartate Amino Transf (AST/SGOT) 17 U/L Alanine Aminotransferase (ALT/SGPT) 16 U/L Total Bilirubin 0.2 MG/DL Sodium Level 136 MEQ/L 140 MEQ/L Potassium Level 3.9 MEQ/L 4.0 MEQ/L Chloride Level 108 MEQ/L 111 MEQ/L Carbon Dioxide Level 20.7 MEQ/L 20.8 MEQ/L Anion Gap 7 MEQ/L 8 MEQ/L Estimat Glomerular Filtration Rate 84 ML/MIN 76 ML/MIN Imaging Last Impressions Chest X-Ray 11/07/16 0000 Signed Impressions: Service Date/Time: Monday, November 07, 2016 04:53 - CONCLUSION: 1. Slight increase in basilar airspace disease since November 05. Endotracheal tube and nasogastric tube unchanged. Nestor Palomino MD Cervical Spine MRI 11/06/16 0000 Signed Impressions: Service Date/Time: Sunday, November 06, 2016 21:36 - CONCLUSION: 1. Multilevel degenerative changes of the cervical spine as above, especially C5/ C6 and C6/C7. 2. Mild to moderate spinal stenosis and severe right foraminal stenosis at C5/C6. 3. Mild spinal stenosis and moderate right foraminal stenosis at C6/C7. 4. No cord compression or cord signal abnormality. 5. No fracture or subluxation. 6. Large nodule of the left lobe of the thyroid gland. There are also upper limits of normal bilateral cervical lymph nodes. Keshav Burks MD Brain MRI 11/06/16 0000 Signed Impressions: Service Date/Time: Sunday, November 06, 2016 21:36 - CONCLUSION: 1. No change or acute abnormality demonstrated. 2. Atrophy, ventriculomegaly and chronic white matter changes are again noted. Keshav Burks MD Thyroid Ultrasound 10/31/16 0000 Signed Impressions: Service Date/Time: Monday, October 31, 2016 11:47 - CONCLUSION: Large complex mass right lobe of the thyroid. Minimally increased in size since Jacoby Torre MD FACR Abdomen X-Ray 10/29/16 0000 Signed Impressions: Service Date/Time: Saturday, October 29, 2016 15:32 - CONCLUSION: Negative for radiopaque foreign bodies. Jacoby Torre MD FACR Chest CT 10/28/161813 Signed Impressions: Service Date/Time: Friday, October 28, 2016 18:28 - CONCLUSION: 1. Abnormality on chest radiograph corresponds to a 3.4 x 3.5 cm central right hilar mass/adenopathy with associated postobstructive airspace consolidation in the inferior right upper lobe. There are at least 2 additional pulmonary nodules measuring 13 x 8 mm in the anterior right middle lobe and 8 x 8 mm in the anterior right upper lobe near the apex. 2. 3.9 x 4.3 cm heterogeneous nodule in the right thyroid gland. No significant regional cervical adenopathy. 3. Patchy bilateral lower lobe air space consolidation and diffuse ground glass opacities. Differential considerations include ARDS versus infection versus aspiration. 1. Tyler Selby MD Head CT 10/28/16 0000 Signed Impressions: Service Date/Time: Friday, October 28, 2016 20:44 - CONCLUSION: 1. No bleed or evidence of acute infarction. 2. Atrophy and chronic white matter changes. 3. Moderate ventriculomegaly, beyond that expected for the degree of atrophy. Normal pressure hydrocephalus would be in the differential. Keshav Burks MD Objective Remarks GENERAL: 71-year-old female, critically ill currently orotracheally intubated SKIN: Warm and dry. HEAD: Atraumatic. Normocephalic. EYES: Pupils equal and round about 3 mm bilaterally and reactive. No scleral icterus. No injection or drainage. ENT: No nasal bleeding or discharge. Orotracheally intubated NECK: Trachea midline. No JVD. Right-sided thyromegaly/palpable mass noted CARDIOVASCULAR: Tachycardic, RR. S1, S2 no S4. Without murmur RESPIRATORY: Diminished breath sounds right upper lobe. Coarse crackles appreciated bilaterally. Also bilateral course rhonchi GASTROINTESTINAL: Abdomen soft, non-tender, nondistended. Hepatic and splenic margins not palpable. MUSCULOSKELETAL: Extremities bilateral trace nonpitting lower extremity edema. No obvious deformities. NEUROLOGICAL: Positive gag. Positive corneal reflex. Not following commands upper or lower extremity. Upward toes. A/P Assessment and Plan Plan: Neuro/Psych: Depression/anxiety Toxic metabolic encephalopathy Ventriculomegaly History of dementia Off sedation, monitor neuro status. EEG 11/06 revealed triphasic sway/diffuse sharp waves likely moderate encephalopathy cannot rule out proclivity of seizure Neuro eval for encephalopathy with Dr. Sampson noted CT brain: Moderate ventriculomegaly, beyond that expected for the degree of atrophy. MRI confirms. Neurosurgery is following- Dr. Hernandez No acute intervention Repeat MRI brain 11/06 stable for ventriculomegaly. No other acute findings Currently holding home medications clonazepam 0.5 mg twice a day and quetiapine 25 mg at night On levetiracetam 500 mg IV twice a day per neurology's EEG above As needed fentanyl 50 every 8 hours when necessary pain CV: Hypertension Dyslipidemia On Lopressor 50mg Q8, amlodipine 10mg daily, Clonidine 0.2mg Q8, -Monitor HR and BP keep MAP>65mmHg Home medication for hypertension include amlodipine 10 mg by mouth daily and carvedilol 25 mg by mouth twice a day As needed hydralazine and labetalol and Nitropaste for hypertension Currently holding atorvastatin 40 mg by mouth daily for dyslipidemia. Pulm Acute hypoxemic respiratory failure possibly secondary to post obstructive pneumonia Squamous cell carcinoma of Lung [facility] 14500/02/15/34. Ventilator bundle Check CXR Albuterol/ipratropium aerosols every 6 hours with albuterol aerosols every 2 hours. Dyspnea. At 3% saline aerosols every 6 hours [address] chest reviewed revealed 3.4 x 2.5 right hilar mass with post discharge pneumonia in the right upper lobe. Right middle lobe mass. Pulm is following- Dr. Madison, s/p bronch with BAL 11/01. Cytology positive ( squamous cell carcinoma Renal/: Hypernatremia - resolved Monitor renal function, I/O's, electrolytes replacement per protocol. On free water 200 cc every 6 hours tube feeds Diurese with Bumex 1mg BID GI/liver: Mild protein calorie malnutrition Continue with Glucerna 1.5 at 40 cc an hour On famotidine 20mg BID for GI prophylaxis ID: Escherichia coli UTI Postobstructive pneumonia Continue with abx per ID ( Vancomycin, Aztreonam, Merrem, Diflucan) monitor for signs of infections ( Fever, WBC). Panculture 11/09 ( Blood, sputum, urine)- NGTD Follow up on cultures and bronchoscopy 11/01- Yeast species BC 11/04: NGTD Blood cultures 2 - 11/06 - NGTD Sputum 11/06 ESBL E Coli and PSAE. Strep pneumonia urinary Ag negative. ID is following- Dr. 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 Patient has hilar mass with pulmonary nodules, also thyroid mass. Seen by Oncology-Dr. Xavier patient is not candidate for surgery, chemo radiation give poor performance status, hospice was recommended. Palliative care is following Endocrine: Diabetes mellitus Hold insulin detemir 26 units twice a day. Right thyroid mass 6.8 cm/chronic On SSI medium scale Novulin R for glycemic control. Patient is on insulin glargine at home Prophylaxis: Famotidine 20 mg twice a day via OG tube, SCDs/subcutaneous heparin CCT 30 mins Remains critically ill now with ESBL E Coli and PSAE pneumonia. D/W ID. 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 peanut sheller requiring certification from treatment team prior to proceeding with withdrawal of life support/Hospice Santana Browning MD Nov 10, 2016 07:50
[2016-11-10] MEDS ORDERED: DEXTROSE 50% IN WATER 50 ML VIAL(D50) IV PUSH PRN (08:00)
[2016-11-10] MEDS ORDERED: INSULIN NovoLIN REGULAR SUPPLEMENTAL SCALE SQ SCH (08:00)
[2016-11-10] MEDS ORDERED: GLUCAGON 1 MG/ML VIAL OTHER PRN (08:00)
[2016-11-10] MEDS: FAMOTIDINE 20 MG TAB PO SCH ×2 (08:27→21:08)
[2016-11-10] MEDS: LACTOBACILLUS ACIDOPHILUS TAB PO SCH ×3 (08:27→17:43)
[2016-11-10] MEDS: FLUCONAZOLE 100 MG TAB PO SCH (08:27)
[2016-11-10] MEDS: CHLORHEXIDINE 0.12% (ORAL KIT) 15 ML CUP MT SCH ×2 (08:29→21:06)
[2016-11-10] MEDS: MUPIROCIN 2% OINT 1 APPLIC/GM SYR EACH NARE SCH ×2 (08:29→21:08)
[2016-11-10] MEDS: SODIUM CHLORIDE 0.9% FLUSH 10 ML FLUSH IV FLUSH SCH ×2 (08:31→21:08)
--- NOTE | 2016-11-10 08:51 | RADRPT ---
EXAM DATE/TIME: 11/10/2016 08:17 [place] COMPARISON: CHEST SINGLE AP, November 07, 2016, 4:53. INDICATIONS : Shortness of breath. MEDICAL HISTORY : Hypertension. Diabetes mellitus type II. SURGICAL HISTORY : None. ENCOUNTER: Subsequent ACUITY: 1 week PAIN SCORE: Non-responsive. LOCATION: Bilateral chest FINDINGS: AP semiupright portable view the chest demonstrates interval enlargement of the cardiac silhouette an d progressive enlargement of the central pulmonary vasculature with adjacent hazy indistinctness of t he interstitium consistent with worsening volume overload or congestive heart failure with pulmonary edema. There is slight blunting of the left costophrenic angle consistent with atelectasis and/or flu id. Hazy increased opacity identified in the right lung base consistent with pleural fluid. NG tube i n seen with the proximal port below the level of the gastroesophageal junction. CONCLUSION: Overall worsening lung exam with interval enlargement of cardiac silhouette concerning for volume ove rload versus congestive heart failure and worsening pulmonary edema. July Ludwig MD on November 10, 2016 at 8:47 Board Certified Radiologist. This report was verified electronically.
[2016-11-10] MEDS ORDERED: BUMETANIDE INJ 1 MG/4 ML VIAL IV PUSH SCH (10:00)
[2016-11-10] MEDS ORDERED: BUMETANIDE INJ 1 MG/4 ML VIAL IV PUSH ONE (13:00)
[2016-11-10] MEDS: DEXMEDETOMIDINE INJ 200 MCG in SODIUM CHLORIDE 0.9% INJ 50 ML IV PRN ×3 (13:09→22:53)
[2016-11-11] VITALS (19 sets, daily range): BP systolic 144–159; BP diastolic 66–76; PULSE 76–105; RESP 14–39; TEMP 98.2–99.7; O2SAT 90–100
[2016-11-11] MEDS: HEPARIN SODIUM - SQ 10,000 UNITS/ML VIAL SQ SCH ×3 (00:39→15:23)
[2016-11-11] MEDS ORDERED: PHARMACY ORDERED LAB ONE (00:45)
[2016-11-11] MEDS: INSULIN NovoLIN REGULAR SUPPLEMENTAL SCALE SQ SCH ×4 (01:28→20:00)
[2016-11-11] MEDS: VANCOMYCIN 1,500 MG/NS 500 ML IV SCH ×2 (01:30)
[2016-11-11] MEDS: CHLORHEXIDINE GLUCONATE 2 % 1 PACK (2 CLOTHS) TOP SCH (04:00)
[2016-11-11] MEDS: levETIRAcetam INJ 500 MG in SODIUM CHLORIDE 0.9% INJ 100 ML IV SCH ×2 (04:03→14:20)
[2016-11-11] MEDS: RESP: ALBUTEROL 2.5 MG/IPRATROPIUM 0.5 MG NEB (SCH) NEB ×3 (04:38→15:46)
[2016-11-11] MEDS: RESP: SODIUM CHLORIDE 3% 4 ML NEB NEB SCH ×4 (04:38→21:23)
[2016-11-11] MEDS: cloNIDine HCL 0.1 MG TAB PO SCH ×3 (05:05→21:07)
[2016-11-11] MEDS: [UNRECOGNIZED DRUG - REMARK] NG SCH ×3 (05:05→17:37)
[2016-11-11] MEDS: ARTIFICIAL TEARS OPTH SOLN 15 ML BTL EACH EYE SCH ×3 (05:05→21:09)
[2016-11-11] MEDS: METOPROLOL TARTRATE 50 MG TAB PO SCH ×3 (05:05→21:08)
[2016-11-11] MEDS: MEROPENEM INJ 1,000 MG in SODIUM CHLORIDE 0.9% INJ 100 ML IV SCH ×2 (05:44→14:20)
[2016-11-11] MEDS: DEXMEDETOMIDINE INJ 200 MCG in SODIUM CHLORIDE 0.9% INJ 50 ML IV PRN ×4 (05:45→21:13)
[2016-11-11 06:18] LABS: AUTOMATED NEUTROPHIL # 9.3 TH/MM3 (1.8-7.7); BASOPHIL # 0.1 TH/MM3 (0-0.2); BASOPHIL % 0.9 % (0.0-2.0); EOSINOPHIL # 0.4 TH/MM3 (0-0.4); EOSINOPHIL % 2.9 % (0.0-4.0); HEMATOCRIT 28.4 % (35.0-46.0); LYMPH % 13.8 % (9.0-44.0); LYMPHOCYTE # 1.8 TH/MM3 (1.0-4.8); MEAN CELL VOLUME 88.6 FL (80.0-100.0); MEAN CORPUSCULAR HGB CONC 32.8 % (32.0-36.0); MONO % 9.5 % (0.0-8.0); NEUT % 72.9 % (16.0-70.0); PLATELET COUNT 451 TH/MM3 (150-450); RED CELL DISTRIBUTION WIDTH 14.7 % (11.6-17.2); WHITE BLOOD COUNT 12.7 TH/MM3 (4.0-11.0)
[2016-11-11 06:19] LABS: HEMO FLAGS AUTO DIFF
[2016-11-11 06:25] LABS: POTASSIUM 4.1 MEQ/L (3.5-5.1)
[2016-11-11 07:14] LABS: BANDS 3 % (0-6); EOSINOPHILS 5 % (0-4); MYELOCYTES 1 % (0-0); NEUTROPHIL # MANUAL DIFF 9.9 TH/MM3 (1.8-7.7); PLATELET ESTIMATE SMEAR NORMAL (NORMAL); PLATELET MORPHOLOGY NORMAL (NORMAL); POLYS (SEG NEUTROPHILS) 74 % (16-70); SCAN/DIFF FINAL DIFF MANUAL; WBC DIFF SAMPLE 100
--- NOTE | 2016-11-11 07:56 | HHI.CCPN ---
Subjective Remarks/Hospital Course HPI 70-year-old halfway resident with a medical history significant for dementia, diabetes mellitus, hyperlipidemia, reactive airway disease who was found to have altered mental status at the halfway for which EMS was called. Patient was noted to have O2 sats in the 70s. She was very apneic with her head slumped down. Paramedics report of having to hold her head up to have her breathe with the nebulizer treatment in place. Patient was given Solu- Medrol 125 mg IV and 4 nebulizer treatments prior to arrival in the ER for documentation. On arrival in the ER patient was extremely lethargic however was reportedly able to answer some questions. Patient was felt not to be able to protect her airway as well as very hypoxic and hence was intubated by ER physician and placed on mechanical ventilation. Chest x-ray in the ER showed bilateral infiltrates and possible cavitary lesion. She was accepted for admission by critical care medicine service. CT chest was ordered by ER physician. When I evaluated the patient in the ER she was sedated with propofol , orally intubated on mechanical ventilation. History was obtained by reviewing records and discussion with ER physician. 10/29 Patient is sedated with Diprivan and intubated. Afebrile. 10/30 Patient remains sedated and intubated. T:99.7 last night. 10/31: Intubated sedated. CT reviewed and discussed with Dr. Madison. Will consider Bronch. Also check thyroid US and possible biopsy. Check thyroid studies. Also consult palliative care as patient has underlying dementia with NPH and possible malignancy. 11/01: Tmax 100.3. Plan for bronchoscopy at 3:00 today. Noted thyroid masses chronic/since 2011. Tolerating tube feeding. Positive BM. 11/02: Tmax 100.1. Status post bronchoscopy yesterday with removal of mucous plugging. Tolerating tube feeds. Positive BM. Weaning propofol sedation today. 11/03: Tmax 100.6. Noted elevated leukocytosis. Weaning sedation. Positive BM. Tolerate tube feeding. 11/04: Afebrile. UA negative. C. difficile pending. 4 bowel movement overnight. Tolerating tube feeding. No new issues. 11/05 Patient is sedated with Diprivan and intubated. T:100.7. Given Labetalol 10mg IV x3 for hypertension overnight. 11/06 No events overnight. Off sedation. T: 101.5 last night. Subjective 11/07: Tmax 102. Currently 100.6. Continues off sedation. Eyes are open to voice but not falling commands. Noted MRI brain unchanged. MRI C-spine revealed no cord compression or cord abnormality's. Severe C5/6 right foraminal narrowing 11/08: Remains intubated sedated, intermittently opens eyes. Per palliative care , cooker casing requesting letter of certification from treatment team. Prior to making a decision to withdraw from life support, the cooker casing is requesting a letter from the covering physicians certifying that she is hospice appropriate and palliative rather than aggressive treatment is appropriate. Dr. Madison thinks hospice is appropriate but also recommends Oncology input. I have consulted medical oncology 11/09 Patient remains intubated, on no sedation, Tmax 103.1 gets tachypneic with CPAP trials 11/10 Patient is intubated had T:100.3 last night. Doesn't follow commands. 11/11 No events overnight. Placed on Precdex drip yesterday to faciliate with weaning trials. T: 99.7. Awake looking aroung with her eyes but does not following commands. Objective Vital Signs Date Time Temp Pulse Resp B/P (MAP) Pulse Ox O2 Delivery O2 Flow Rate FiO2 11/11/16 06:00 91 11/11/16 04:33 98 35 11/11/16 04:00 98.2 27 150/71 (97) Intake and Output 11/11/16 11/11/16 11/12/16 08:00 16:00 00:00 Intake Total 880 ml Output Total 650 ml Balance 230 ml Result Diagram: 11/11/16 0359 11/11/16 0359 Other Results Laboratory Tests Test 11/10/16 18:22 11/11/16 03:59 Potassium Level 4.1 MEQ/L 4.1 MEQ/L White Blood Count 12.7 TH/MM3 Red Blood Count 3.20 MIL/MM3 Hemoglobin 9.3 GM/DL Hematocrit 28.4 % Mean Corpuscular Volume 88.6 FL Mean Corpuscular Hemoglobin 29.0 PG Mean Corpuscular Hemoglobin Concent 32.8 % Red Cell Distribution Width 14.7 % Platelet Count 451 TH/MM3 Mean Platelet Volume 8.6 FL Neutrophils (%) (Auto) 72.9 % Lymphocytes (%) (Auto) 13.8 % Monocytes (%) (Auto) 9.5 % Eosinophils (%) (Auto) 2.9 % Basophils (%) (Auto) 0.9 % Neutrophils # (Auto) 9.3 TH/MM3 Lymphocytes # (Auto) 1.8 TH/MM3 Monocytes # (Auto) 1.2 TH/MM3 Eosinophils # (Auto) 0.4 TH/MM3 Basophils # (Auto) 0.1 TH/MM3 CBC Comment AUTO DIFF Differential Total Cells Counted 100 Neutrophils % (Manual) 74 % Band Neutrophils % 3 % Lymphocytes % 8 % Monocytes % 9 % Eosinophils % 5 % Neutrophils # (Manual) 9.9 TH/MM3 Myelocytes 1 % Differential Comment FINAL DIFF MANUAL Platelet Estimate NORMAL Platelet Morphology Comment NORMAL Red Cell Morphology Comment NORMAL Blood Urea Nitrogen 29 MG/DL Creatinine 0.79 MG/DL Random Glucose 218 MG/DL Calcium Level 8.4 MG/DL Sodium Level 140 MEQ/L Chloride Level 110 MEQ/L Carbon Dioxide Level 22.0 MEQ/L Anion Gap 8 MEQ/L Estimat Glomerular Filtration Rate 72 ML/MIN Imaging Last Impressions Chest X-Ray 11/10/16 0000 Signed Impressions: Service Date/Time: Thursday, November 10, 2016 08:17 - CONCLUSION: Overall worsening lung exam with interval enlargement of cardiac silhouette concerning for volume overload versus congestive heart failure and worsening pulmonary edema. July Ludwig MD Cervical Spine MRI 11/06/16 0000 Signed Impressions: Service Date/Time: Sunday, November 06, 2016 21:36 - CONCLUSION: 1. Multilevel degenerative changes of the cervical spine as above, especially C5/ C6 and C6/C7. 2. Mild to moderate spinal stenosis and severe right foraminal stenosis at C5/C6. 3. Mild spinal stenosis and moderate right foraminal stenosis at C6/C7. 4. No cord compression or cord signal abnormality. 5. No fracture or subluxation. 6. Large nodule of the left lobe of the thyroid gland. There are also upper limits of normal bilateral cervical lymph nodes. Keshav Burks MD Brain MRI 11/06/16 0000 Signed Impressions: Service Date/Time: Sunday, November 06, 2016 21:36 - CONCLUSION: 1. No change or acute abnormality demonstrated. 2. Atrophy, ventriculomegaly and chronic white matter changes are again noted. Keshav Burks MD Thyroid Ultrasound 10/31/16 0000 Signed Impressions: Service Date/Time: Monday, October 31, 2016 11:47 - CONCLUSION: Large complex mass right lobe of the thyroid. Minimally increased in size since Jacoby Torre MD FACR Abdomen X-Ray 10/29/16 0000 Signed Impressions: Service Date/Time: Saturday, October 29, 2016 15:32 - CONCLUSION: Negative for radiopaque foreign bodies. Jacoby Torre MD FACR Chest CT 10/28/164 Signed Impressions: Service Date/Time: Friday, October 28, 2016 18:28 - CONCLUSION: 1. Abnormality on chest radiograph corresponds to a 3.4 x 3.5 cm central right hilar mass/adenopathy with associated postobstructive airspace consolidation in the inferior right upper lobe. There are at least 2 additional pulmonary nodules measuring 13 x 8 mm in the anterior right middle lobe and 8 x 8 mm in the anterior right upper lobe near the apex. 2. 3.9 x 4.3 cm heterogeneous nodule in the right thyroid gland. No significant regional cervical adenopathy. 3. Patchy bilateral lower lobe air space consolidation and diffuse ground glass opacities. Differential considerations include ARDS versus infection versus aspiration. 1. Tyler Selby MD Head CT 10/28/16 0000 Signed Impressions: Service Date/Time: Friday, October 28, 2016 20:44 - CONCLUSION: 1. No bleed or evidence of acute infarction. 2. Atrophy and chronic white matter changes. 3. Moderate ventriculomegaly, beyond that expected for the degree of atrophy. Normal pressure hydrocephalus would be in the differential. Keshav Burks MD Objective Remarks GENERAL: 71-year-old female, critically ill currently orotracheally intubated SKIN: Warm and dry. HEAD: Atraumatic. Normocephalic. EYES: Pupils equal and round about 3 mm bilaterally and reactive. No scleral icterus. No injection or drainage. ENT: No nasal bleeding or discharge. Orotracheally intubated NECK: Trachea midline. No JVD. Right-sided thyromegaly/palpable mass noted CARDIOVASCULAR: Tachycardic, RR. S1, S2 no S4. Without murmur RESPIRATORY: Diminished breath sounds right upper lobe. Coarse crackles appreciated bilaterally. Also bilateral course rhonchi GASTROINTESTINAL: Abdomen soft, non-tender, nondistended. Hepatic and splenic margins not palpable. MUSCULOSKELETAL: Extremities bilateral trace nonpitting lower extremity edema. No obvious deformities. NEUROLOGICAL: Positive gag. Positive corneal reflex. Not following commands upper or lower extremity. Upward toes. A/P Assessment and Plan Plan: Neuro/Psych: Depression/anxiety Toxic metabolic encephalopathy Ventriculomegaly History of dementia Off sedation, monitor neuro status. On Precedex drip to facilitae with weaning trials. EEG 11/06 revealed triphasic sway/diffuse sharp waves likely moderate encephalopathy cannot rule out proclivity of seizure Neuro eval for encephalopathy with Dr. Sampson noted CT brain: Moderate ventriculomegaly, beyond that expected for the degree of atrophy. MRI confirms. Neurosurgery is following- Dr. Hernandez No acute intervention Repeat MRI brain 11/06 stable for ventriculomegaly. No other acute findings Currently holding home medications clonazepam 0.5 mg twice a day and quetiapine 25 mg at night On levetiracetam 500 mg IV twice a day per neurology's EEG above As needed fentanyl 50 every 8 hours when necessary pain CV: Hypertension Dyslipidemia On Lopressor 50mg Q8, amlodipine 10mg daily, Clonidine 0.2mg Q8, -Monitor HR and BP keep MAP>65mmHg Home medication for hypertension include amlodipine 10 mg by mouth daily and carvedilol 25 mg by mouth twice a day As needed hydralazine and labetalol and Nitropaste for hypertension Currently holding atorvastatin 40 mg by mouth daily for dyslipidemia. Pulm Acute hypoxemic respiratory failure possibly secondary to post obstructive pneumonia Squamous cell carcinoma of Lung [facility] /02/15/34. Ventilator bundle Albuterol/ipratropium aerosols every 6 hours with albuterol aerosols every 2 hours. Dyspnea. At 3% saline aerosols every 6 hours [address] chest reviewed revealed 3.4 x 2.5 right hilar mass with post discharge pneumonia in the right upper lobe. Right middle lobe mass. Pulm is following- Dr. Madison, s/p bronch with BAL 11/01. Cytology positive ( squamous cell carcinoma Renal/: Hypernatremia - resolved Monitor renal function, I/O's, electrolytes replacement per protocol. On free water 200 cc every 6 hours tube feeds Diurese with Bumex 1mg BID GI/liver: Mild protein calorie malnutrition Continue with Glucerna 1.5 at 40 cc an hour On famotidine 20mg BID for GI prophylaxis ID: Escherichia coli UTI Postobstructive pneumonia Continue with abx per ID ( Vancomycin, Aztreonam, Merrem, Diflucan) monitor for signs of infections ( Fever, WBC).WBC is trending down Sputum cx 11/09: Pseudomonas Follow up on cultures and bronchoscopy 11/01- Yeast species BC 11/04: NGTD Blood cultures 2 - 11/06 - NGTD Sputum 11/06 ESBL E Coli, PSAE, Staph. Strep pneumonia urinary Ag negative. ID is following- Dr. 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 Patient has hilar mass with pulmonary nodules, also thyroid mass. Seen by Oncology-Dr. Xavier patient is not candidate for surgery, chemo radiation give poor performance status, hospice was recommended. Palliative care is following Endocrine: Diabetes mellitus Right thyroid mass 6.8 cm/chronic Start Levemir 5un Q12 On SSI medium scale Novulin R for glycemic control. Patient is on insulin glargine at home Prophylaxis: Famotidine 20 mg twice a day via OG tube, SCDs/subcutaneous heparin Level 3 Remains critically ill now with ESBL E Coli and PSAE pneumonia. cooker casing requiring certification from treatment team prior to proceeding with withdrawal of life support/Hospice Santana Browning MD Nov 11, 2016 07:56
[2016-11-11] MEDS: LACTOBACILLUS ACIDOPHILUS TAB PO SCH ×3 (09:00→17:37)
[2016-11-11] MEDS: MUPIROCIN 2% OINT 1 APPLIC/GM SYR EACH NARE SCH ×2 (09:00→21:08)
[2016-11-11] MEDS: SODIUM CHLORIDE 0.9% FLUSH 10 ML FLUSH IV FLUSH SCH ×2 (09:26→21:09)
[2016-11-11] MEDS: FAMOTIDINE 20 MG TAB PO SCH ×2 (09:27→21:08)
[2016-11-11] MEDS: FLUCONAZOLE 100 MG TAB PO SCH (09:27)
[2016-11-11] MEDS: BUMETANIDE INJ 1 MG/4 ML VIAL IV PUSH SCH ×2 (09:27→17:37)
[2016-11-11] MEDS: CHLORHEXIDINE 0.12% (ORAL KIT) 15 ML CUP MT SCH ×2 (09:28→21:09)
[2016-11-11] MEDS: INSULIN DETEMIR 100 UNITS/ML VIAL SQ SCH ×2 (09:28→21:08)
[2016-11-11] MEDS: AZTREONAM INJ 2,000 MG in SODIUM CHLORIDE 0.9% INJ 100 ML IV SCH ×2 (09:30→15:23)
--- NOTE | 2016-11-11 16:10 | HHI.IDPN ---
Subjective Subjective Remarks ID X cover for Dr Morales chart was reviewed 72 yo female with nwewly diagnosed lung ca (Bronch cytology shows squamous cell carcinoma) dw RN pt failed CPAP and currently tachypmnneic , thougfh sats are adequate she is afenrile Antibiotics azactam meropenem IV vancomycin Allergies: Coded Allergies: propoxyphene (Unverified Allergy, Severe, 09/25/16) amoxicillin (Verified Allergy, Unknown, 10/28/16) Objective . Vital Signs Date Time Temp Pulse Resp B/P (MAP) Pulse Ox O2 Delivery O2 Flow Rate FiO2 11/11/16 15:48 91 35 11/11/16 14:00 105 11/11/16 12:19 99 35 11/11/16 12:00 98.8 104 18 155/75 (101) 100 11/11/16 12:00 35 11/11/16 12:00 104 11/11/16 10:00 97 11/11/16 08:51 100 35 11/11/16 08:00 35 11/11/16 08:00 97 11/11/16 08:00 98.4 97 14 159/74 (102) 96 11/11/16 06:00 91 11/11/16 04:33 98 35 11/11/16 04:00 35 11/11/16 04:00 103 11/11/16 04:00 98.2 103 27 150/71 (97) 100 11/11/16 02:00 101 11/11/16 01:02 97 35 11/11/16 00:00 35 11/11/16 00:00 98.6 103 39 147/76 (99) 97 11/11/16 00:00 103 11/10/16 22:00 86 11/10/16 20:55 96 35 11/10/16 20:00 35 11/10/16 20:00 99.7 103 46 151/66 (94) 94 11/10/16 20:00 103 11/10/16 18:00 102 11/11/16 11/11/16 11/12/16 15:00 23:00 07:00 Intake Total 882 ml Balance 882 ml Intake IV Total 882 ml . Laboratory Tests Test 11/10/16 05:53 11/11/16 03:59 White Blood Count 14.7 TH/MM3 12.7 TH/MM3 Red Blood Count 3.01 MIL/MM3 3.20 MIL/MM3 Hemoglobin 8.7 GM/DL 9.3 GM/DL Hematocrit 26.8 % 28.4 % Mean Corpuscular Volume 88.9 FL 88.6 FL Mean Corpuscular Hemoglobin 28.8 PG 29.0 PG Mean Corpuscular Hemoglobin Concent 32.4 % 32.8 % Red Cell Distribution Width 14.4 % 14.7 % Platelet Count 390 TH/MM3 451 TH/MM3 Mean Platelet Volume 8.4 FL 8.6 FL Neutrophils (%) (Auto) 70.4 % 72.9 % Lymphocytes (%) (Auto) 16.1 % 13.8 % Monocytes (%) (Auto) 9.0 % 9.5 % Eosinophils (%) (Auto) 3.3 % 2.9 % Basophils (%) (Auto) 1.2 % 0.9 % Neutrophils # (Auto) 10.3 TH/MM3 9.3 TH/MM3 Lymphocytes # (Auto) 2.4 TH/MM3 1.8 TH/MM3 Monocytes # (Auto) 1.3 TH/MM3 1.2 TH/MM3 Eosinophils # (Auto) 0.5 TH/MM3 0.4 TH/MM3 Basophils # (Auto) 0.2 TH/MM3 0.1 TH/MM3 CBC Comment AUTO DIFF AUTO DIFF Differential Total Cells Counted 100 100 Neutrophils % (Manual) 76 % 74 % Band Neutrophils % 6 % 3 % Lymphocytes % 13 % 8 % Monocytes % 4 % 9 % Eosinophils % 1 % 5 % Neutrophils # (Manual) 12.1 TH/MM3 9.9 TH/MM3 Differential Comment FINAL DIFF MANUAL FINAL DIFF MANUAL Platelet Estimate NORMAL NORMAL Platelet Morphology Comment NORMAL NORMAL Myelocytes 1 % Red Cell Morphology Comment NORMAL Laboratory Tests Test 11/10/16 05:53 11/10/16 18:22 11/11/16 03:59 Blood Urea Nitrogen 28 MG/DL 29 MG/DL Creatinine 0.75 MG/DL 0.79 MG/DL Random Glucose 116 MG/DL 218 MG/DL Calcium Level 8.4 MG/DL 8.4 MG/DL Sodium Level 140 MEQ/L 140 MEQ/L Potassium Level 4.0 MEQ/L 4.1 MEQ/L 4.1 MEQ/L Chloride Level 111 MEQ/L 110 MEQ/L Carbon Dioxide Level 20.8 MEQ/L 22.0 MEQ/L Anion Gap 8 MEQ/L 8 MEQ/L Estimat Glomerular Filtration Rate 76 ML/MIN 72 ML/MIN Microbiology Date/Time Source Procedure Growth Status 11/09/16 09:58 Blood Peripheral Aerobic Blood Culture - Preliminary NO GROWTH IN 2 DAYS Resulted 11/09/16 09:58 Blood Peripheral Anaerobic Blood Culture - Preliminary NO GROWTH IN 2 DAYS Resulted 11/09/16 09:45 Blood Peripheral Aerobic Blood Culture - Preliminary NO GROWTH IN 2 DAYS Resulted 11/09/16 09:45 Blood Peripheral Anaerobic Blood Culture - Preliminary NO GROWTH IN 2 DAYS Resulted 11/09/16 09:30 Sputum Endotracheal Gram Stain - Final Complete 11/09/16 09:30 Sputum Culture - Final Pseudomonas Aeruginosa Staphylococcus Aureus Complete 11/09/16 09:30 Urine Catheterized Urine Urine Culture - Final NO GROWTH IN 48 HOURS. Complete Imaging Last Impressions Chest X-Ray 11/10/16 0000 Signed Impressions: Service Date/Time: Thursday, November 10, 2016 08:17 - CONCLUSION: Overall worsening lung exam with interval enlargement of cardiac silhouette concerning for volume overload versus congestive heart failure and worsening pulmonary edema. July Ludwig MD Cervical Spine MRI 11/06/16 0000 Signed Impressions: Service Date/Time: Sunday, November 06, 2016 21:36 - CONCLUSION: 1. Multilevel degenerative changes of the cervical spine as above, especially C5/ C6 and C6/C7. 2. Mild to moderate spinal stenosis and severe right foraminal stenosis at C5/C6. 3. Mild spinal stenosis and moderate right foraminal stenosis at C6/C7. 4. No cord compression or cord signal abnormality. 5. No fracture or subluxation. 6. Large nodule of the left lobe of the thyroid gland. There are also upper limits of normal bilateral cervical lymph nodes. Keshav Burks MD Brain MRI 11/06/16 0000 Signed Impressions: Service Date/Time: Sunday, November 06, 2016 21:36 - CONCLUSION: 1. No change or acute abnormality demonstrated. 2. Atrophy, ventriculomegaly and chronic white matter changes are again noted. Keshav Burks MD Thyroid Ultrasound 10/31/16 0000 Signed Impressions: Service Date/Time: Monday, October 31, 2016 11:47 - CONCLUSION: Large complex mass right lobe of the thyroid. Minimally increased in size since Jacoby Torre MD FACR Abdomen X-Ray 10/29/16 0000 Signed Impressions: Service Date/Time: Saturday, October 29, 2016 15:32 - CONCLUSION: Negative for radiopaque foreign bodies. Jacoby Torre MD FACR Chest CT 10/28/16 1814 Signed Impressions: Service Date/Time: Friday, October 28, 2016 18:28 - CONCLUSION: 1. Abnormality on chest radiograph corresponds to a 3.4 x 3.5 cm central right hilar mass/adenopathy with associated postobstructive airspace consolidation in the inferior right upper lobe. There are at least 2 additional pulmonary nodules measuring 13 x 8 mm in the anterior right middle lobe and 8 x 8 mm in the anterior right upper lobe near the apex. 2. 3.9 x 4.3 cm heterogeneous nodule in the right thyroid gland. No significant regional cervical adenopathy. 3. Patchy bilateral lower lobe air space consolidation and diffuse ground glass opacities. Differential considerations include ARDS versus infection versus aspiration. 1. Tyler Selby MD Head CT 10/28/16 0000 Signed Impressions: Service Date/Time: Friday, October 28, 2016 20:44 - CONCLUSION: 1. No bleed or evidence of acute infarction. 2. Atrophy and chronic white matter changes. 3. Moderate ventriculomegaly, beyond that expected for the degree of atrophy. Normal pressure hydrocephalus would be in the differential. Keshav Burks MD Physical Exam PHYSICAL EXAMINATION GENERAL: On the ventilator. In acute resp distress. HEENT: non icteric oral mucosae moist NECK: Obese, fullness at the right lateral neck. LUNGS: disffuse rhonchi; quite achypneic HEART: tachycardic, S1S2, No audible murmurs or rubs or gallops. ABDOMEN: Obese, soft, No tenderness. EXTREMITIES: No clubbing or cyanosis or edema. SKIN: No rash. : wynne i place with clear yellow urione NEURO: Lethargic to obtunded Not following commands. PSYCHE: Unable to assess. Assessment & Plan Remarks IMPRESSION 1. Bilateral Pneumonia with hilar cavitary mass. Pseudomonas (R imipnem) and ESBL e. coli in sputum. Squamous cell cancer. 2. Acute respiratory failure, failure to wean - failed CPAP again 3. Candiduria ; repaet urine clx negative 4. Fever and increased WBC. - fever resolved; WBC improving Critically ill and unstable RECOMMENDATIONS 1. dc Vancomycin. 2. Continue aztreonam. 3. cont Meropenem. 4. Continue Diflucan. Non crypto yeast in bronch. Doubt clin significance. 5. Monitor temperature. 6. Monitor clinically dw Makenzie Mckenzie MD Nov 11, 2016 16:10
[2016-11-11] MEDS: RESP: ALBUTEROL 2.5 MG/3 ML NEB (PRN) NEB (21:23)
[2016-11-12] VITALS (24 sets, daily range): BP systolic 122–171; BP diastolic 59–77; PULSE 73–123; RESP 15–24; TEMP 98.8–100.5; O2SAT 86–100
[2016-11-12] MEDS: DEXMEDETOMIDINE INJ 200 MCG in SODIUM CHLORIDE 0.9% INJ 50 ML IV PRN ×4 (00:05→08:57)
[2016-11-12] MEDS: MEROPENEM INJ 1,000 MG in SODIUM CHLORIDE 0.9% INJ 100 ML IV SCH ×3 (00:06→15:25)
[2016-11-12] MEDS: HEPARIN SODIUM - SQ 10,000 UNITS/ML VIAL SQ SCH ×3 (00:07→15:26)
[2016-11-12] MEDS ORDERED: PHARMACY ORDERED LAB ONE (00:45)
[2016-11-12] MEDS: AZTREONAM INJ 2,000 MG in SODIUM CHLORIDE 0.9% INJ 100 ML IV SCH ×3 (01:14→16:14)
[2016-11-12] MEDS: INSULIN NovoLIN REGULAR SUPPLEMENTAL SCALE SQ SCH ×4 (02:00→20:00)
[2016-11-12] MEDS: levETIRAcetam INJ 500 MG in SODIUM CHLORIDE 0.9% INJ 100 ML IV SCH ×2 (02:58→15:22)
[2016-11-12] MEDS: CHLORHEXIDINE GLUCONATE 2 % 1 PACK (2 CLOTHS) TOP SCH (04:00)
[2016-11-12] MEDS: RESP: SODIUM CHLORIDE 3% 4 ML NEB NEB SCH ×3 (04:19→16:59)
[2016-11-12] MEDS: METOPROLOL TARTRATE 50 MG TAB PO SCH ×2 (04:36→13:12)
[2016-11-12] MEDS: [UNRECOGNIZED DRUG - REMARK] NG SCH ×4 (04:36→17:51)
[2016-11-12] MEDS: cloNIDine HCL 0.1 MG TAB PO SCH ×2 (04:36→13:12)
[2016-11-12] MEDS: ARTIFICIAL TEARS OPTH SOLN 15 ML BTL EACH EYE SCH ×3 (04:36→20:12)
--- NOTE | 2016-11-12 05:58 | RADRPT ---
EXAM DATE/TIME: 11/12/2016 04:11 [facility] COMPARISON: CHEST SINGLE AP, November 10, 2016, 8:17. INDICATIONS : Shortness of breath, possible pulmonary disease. MEDICAL HISTORY : Hypertension. Diabetes mellitus type II. SURGICAL HISTORY : None. ENCOUNTER: Subsequent ACUITY: 1 week PAIN SCORE: Non-responsive. LOCATION: Bilateral chest FINDINGS: Right greater the left pulmonary consolidation again noted, both sides slightly worse in the interim. Small pleural effusions are possible, especially on the right. No pneumothorax. Heart size stable, within normal limits. Endotracheal tube tip is approximately 4 cm above the radhika. There is a nasogastric tube coursing in to the stomach. CONCLUSION: Right greater than left airspace disease modestly worse. Keshav Burks MD on November 12, 2016 at 5:55 Board Certified Radiologist. This report was verified electronically.
[2016-11-12 07:10] LABS: BICARBONATE 22.8 MEQ/L (21.0-32.0); POTASSIUM 4.7 MEQ/L (3.5-5.1)
[2016-11-12 07:35] LABS: AUTOMATED NEUTROPHIL # 10.9 TH/MM3 (1.8-7.7); BASOPHIL # 0.1 TH/MM3 (0-0.2); BASOPHIL % 0.8 % (0.0-2.0); EOSINOPHIL # 0.6 TH/MM3 (0-0.4); EOSINOPHIL % 3.9 % (0.0-4.0); HEMATOCRIT 26.8 % (35.0-46.0); LYMPH % 17.1 % (9.0-44.0); LYMPHOCYTE # 2.7 TH/MM3 (1.0-4.8); MEAN CORPUSCULAR HEMOGLOBIN 29.8 PG (27.0-34.0); MEAN CORPUSCULAR HGB CONC 33.9 % (32.0-36.0); MONO % 10.5 % (0.0-8.0); NEUT % 67.7 % (16.0-70.0); PLATELET COUNT 488 TH/MM3 (150-450); RED BLOOD COUNT 3.05 MIL/MM3 (4.00-5.30); RED CELL DISTRIBUTION WIDTH 14.4 % (11.6-17.2)
[2016-11-12 07:36] LABS: HEMO FLAGS AUTO DIFF
[2016-11-12 07:38] LABS: BANDS 15 % (0-6); BASOPHILS 2 % (0-2); EOSINOPHILS 6 % (0-4); POLYS (SEG NEUTROPHILS) 41 % (16-70); WBC DIFF SAMPLE 100
[2016-11-12 07:39] LABS: PLATELET ESTIMATE SMEAR HIGH (NORMAL); PLATELET MORPHOLOGY CLUMPED (NORMAL); SCAN/DIFF FINAL DIFF MANUAL
--- NOTE | 2016-11-12 07:57 | HHI.CCPN ---
Subjective Remarks/Hospital Course HPI 70-year-old longterm resident with a medical history significant for dementia, diabetes mellitus, hyperlipidemia, reactive airway disease who was found to have altered mental status at the longterm for which EMS was called. Patient was noted to have O2 sats in the 70s. She was very apneic with her head slumped down. Paramedics report of having to hold her head up to have her breathe with the nebulizer treatment in place. Patient was given Solu- Medrol 125 mg IV and 4 nebulizer treatments prior to arrival in the ER for documentation. On arrival in the ER patient was extremely lethargic however was reportedly able to answer some questions. Patient was felt not to be able to protect her airway as well as very hypoxic and hence was intubated by ER physician and placed on mechanical ventilation. Chest x-ray in the ER showed bilateral infiltrates and possible cavitary lesion. She was accepted for admission by critical care medicine service. CT chest was ordered by ER physician. When I evaluated the patient in the ER she was sedated with propofol , orally intubated on mechanical ventilation. History was obtained by reviewing records and discussion with ER physician. 10/29 Patient is sedated with Diprivan and intubated. Afebrile. 10/30 Patient remains sedated and intubated. T:99.7 last night. 10/31: Intubated sedated. CT reviewed and discussed with Dr. Madison. Will consider Bronch. Also check thyroid US and possible biopsy. Check thyroid studies. Also consult palliative care as patient has underlying dementia with NPH and possible malignancy. 11/01: Tmax 100.3. Plan for bronchoscopy at 3:00 today. Noted thyroid masses chronic/since 2011. Tolerating tube feeding. Positive BM. 11/02: Tmax 100.1. Status post bronchoscopy yesterday with removal of mucous plugging. Tolerating tube feeds. Positive BM. Weaning propofol sedation today. 11/03: Tmax 100.6. Noted elevated leukocytosis. Weaning sedation. Positive BM. Tolerate tube feeding. 11/04: Afebrile. UA negative. C. difficile pending. 4 bowel movement overnight. Tolerating tube feeding. No new issues. 11/05 Patient is sedated with Diprivan and intubated. T:100.7. Given Labetalol 10mg IV x3 for hypertension overnight. 11/06 No events overnight. Off sedation. T: 101.5 last night. Subjective 11/07: Tmax 102. Currently 100.6. Continues off sedation. Eyes are open to voice but not falling commands. Noted MRI brain unchanged. MRI C-spine revealed no cord compression or cord abnormality's. Severe C5/6 right foraminal narrowing 11/08: Remains intubated sedated, intermittently opens eyes. Per palliative care , medical pathologist requesting letter of certification from treatment team. Prior to making a decision to withdraw from life support, the medical pathologist is requesting a letter from the covering physicians certifying that she is hospice appropriate and palliative rather than aggressive treatment is appropriate. Dr. Madison thinks hospice is appropriate but also recommends Oncology input. I have consulted medical oncology 11/09 Patient remains intubated, on no sedation, Tmax 103.1 gets tachypneic with CPAP trials 11/10 Patient is intubated had T:100.3 last night. Doesn't follow commands. 11/11 No events overnight. Placed on Precedex drip yesterday to facilitate with weaning trials. T: 99.7. Awake looking around with her eyes but does not following commands. 11/12 Patient remains intubated. On Precedex drip. Did not tolerate CPAP trials yesterday. Objective Vital Signs Date Time Temp Pulse Resp B/P (MAP) Pulse Ox O2 Delivery O2 Flow Rate FiO2 11/12/16 06:00 78 11/12/16 04:18 100 35 11/12/16 04:00 99.3 15 139/64 (89) Intake and Output 11/12/16 11/12/16 11/13/16 08:00 16:00 00:00 Intake Total 1305 ml Output Total 800 ml Balance 505 ml Result Diagram: 11/12/16 0558 11/12/16 0558 Other Results Laboratory Tests Test 11/12/16 05:58 White Blood Count 16.0 TH/MM3 Red Blood Count 3.05 MIL/MM3 Hemoglobin 9.1 GM/DL Hematocrit 26.8 % Mean Corpuscular Volume 88.0 FL Mean Corpuscular Hemoglobin 29.8 PG Mean Corpuscular Hemoglobin Concent 33.9 % Red Cell Distribution Width 14.4 % Platelet Count 488 TH/MM3 Mean Platelet Volume 9.0 FL Neutrophils (%) (Auto) 67.7 % Lymphocytes (%) (Auto) 17.1 % Monocytes (%) (Auto) 10.5 % Eosinophils (%) (Auto) 3.9 % Basophils (%) (Auto) 0.8 % Neutrophils # (Auto) 10.9 TH/MM3 Lymphocytes # (Auto) 2.7 TH/MM3 Monocytes # (Auto) 1.7 TH/MM3 Eosinophils # (Auto) 0.6 TH/MM3 Basophils # (Auto) 0.1 TH/MM3 CBC Comment AUTO DIFF Differential Total Cells Counted 100 Neutrophils % (Manual) 41 % Band Neutrophils % 15 % Lymphocytes % 20 % Monocytes % 16 % Eosinophils % 6 % Basophils % 2 % Neutrophils # (Manual) 9.0 TH/MM3 Differential Comment FINAL DIFF MANUAL Atypical Lymphocytes % Platelet Estimate HIGH Platelet Morphology Comment CLUMPED Blood Urea Nitrogen 36 MG/DL Creatinine 0.86 MG/DL Random Glucose 243 MG/DL Calcium Level 7.9 MG/DL Sodium Level 143 MEQ/L Potassium Level 4.7 MEQ/L Chloride Level 112 MEQ/L Carbon Dioxide Level 22.8 MEQ/L Anion Gap 8 MEQ/L Estimat Glomerular Filtration Rate 65 ML/MIN Imaging Last Impressions Chest X-Ray 11/10/16 0000 Signed Impressions: Service Date/Time: Thursday, November 10, 2016 08:17 - CONCLUSION: Overall worsening lung exam with interval enlargement of cardiac silhouette concerning for volume overload versus congestive heart failure and worsening pulmonary edema. July Ludwig MD Cervical Spine MRI 11/06/16 0000 Signed Impressions: Service Date/Time: Sunday, November 06, 2016 21:36 - CONCLUSION: 1. Multilevel degenerative changes of the cervical spine as above, especially C5/ C6 and C6/C7. 2. Mild to moderate spinal stenosis and severe right foraminal stenosis at C5/C6. 3. Mild spinal stenosis and moderate right foraminal stenosis at C6/C7. 4. No cord compression or cord signal abnormality. 5. No fracture or subluxation. 6. Large nodule of the left lobe of the thyroid gland. There are also upper limits of normal bilateral cervical lymph nodes. Keshav Burks MD Brain MRI 11/06/16 0000 Signed Impressions: Service Date/Time: Sunday, November 06, 2016 21:36 - CONCLUSION: 1. No change or acute abnormality demonstrated. 2. Atrophy, ventriculomegaly and chronic white matter changes are again noted. Keshav Burks MD Thyroid Ultrasound 10/31/16 0000 Signed Impressions: Service Date/Time: Monday, October 31, 2016 11:47 - CONCLUSION: Large complex mass right lobe of the thyroid. Minimally increased in size since Jacoby Torre MD FACR Abdomen X-Ray 10/29/16 0000 Signed Impressions: Service Date/Time: Saturday, October 29, 2016 15:32 - CONCLUSION: Negative for radiopaque foreign bodies. Jacoby Torre MD FACR Chest CT 10/28/161813 Signed Impressions: Service Date/Time: Friday, October 28, 2016 18:28 - CONCLUSION: 1. Abnormality on chest radiograph corresponds to a 3.4 x 3.5 cm central right hilar mass/adenopathy with associated postobstructive airspace consolidation in the inferior right upper lobe. There are at least 2 additional pulmonary nodules measuring 13 x 8 mm in the anterior right middle lobe and 8 x 8 mm in the anterior right upper lobe near the apex. 2. 3.9 x 4.3 cm heterogeneous nodule in the right thyroid gland. No significant regional cervical adenopathy. 3. Patchy bilateral lower lobe air space consolidation and diffuse ground glass opacities. Differential considerations include ARDS versus infection versus aspiration. 1. Tyler Selby MD Head CT 10/28/16 0000 Signed Impressions: Service Date/Time: Friday, October 28, 2016 20:44 - CONCLUSION: 1. No bleed or evidence of acute infarction. 2. Atrophy and chronic white matter changes. 3. Moderate ventriculomegaly, beyond that expected for the degree of atrophy. Normal pressure hydrocephalus would be in the differential. Keshav Burks MD Objective Remarks GENERAL: 71-year-old female, critically ill currently orotracheally intubated SKIN: Warm and dry. HEAD: Atraumatic. Normocephalic. EYES: Pupils equal and round about 3 mm bilaterally and reactive. No scleral icterus. No injection or drainage. ENT: No nasal bleeding or discharge. Orotracheally intubated NECK: Trachea midline. No JVD. Right-sided thyromegaly/palpable mass noted CARDIOVASCULAR: Tachycardic, RR. S1, S2 no S4. Without murmur RESPIRATORY: Diminished breath sounds right upper lobe. Coarse crackles appreciated bilaterally. Also bilateral course rhonchi GASTROINTESTINAL: Abdomen soft, non-tender, nondistended. Hepatic and splenic margins not palpable. MUSCULOSKELETAL: Extremities bilateral trace nonpitting lower extremity edema. No obvious deformities. NEUROLOGICAL: Positive gag. Positive corneal reflex. Not following commands upper or lower extremity. Upward toes. A/P Assessment and Plan Plan: Neuro/Psych: Depression/anxiety Toxic metabolic encephalopathy Ventriculomegaly History of dementia Off sedation, monitor neuro status. On Precedex drip to facilitate with weaning trials. EEG 11/06 revealed triphasic sway/diffuse sharp waves likely moderate encephalopathy cannot rule out proclivity of seizure Neuro eval for encephalopathy with Dr. Sampson noted CT brain: Moderate ventriculomegaly, beyond that expected for the degree of atrophy. MRI confirms. Neurosurgery is following- Dr. Hernandez No acute intervention Repeat MRI brain 11/06 stable for ventriculomegaly. No other acute findings Currently holding home medications clonazepam 0.5 mg twice a day and quetiapine 25 mg at night On levetiracetam 500 mg IV twice a day per neurology's EEG above As needed fentanyl 50 every 8 hours when necessary pain CV: Hypertension Dyslipidemia On Lopressor 50mg Q8, amlodipine 10mg daily, Clonidine 0.2mg Q8, -Monitor HR and BP keep MAP>65mmHg Home medication for hypertension include amlodipine 10 mg by mouth daily and carvedilol 25 mg by mouth twice a day As needed hydralazine and labetalol and Nitropaste for hypertension Currently holding atorvastatin 40 mg by mouth daily for dyslipidemia. Pulm Acute hypoxemic respiratory failure possibly secondary to post obstructive pneumonia Squamous cell carcinoma of Lung PRVC 12/500/0/9//. Ventilator bundle Albuterol/ipratropium aerosols every 6 hours with albuterol aerosols every 2 hours. Dyspnea. At 3% saline aerosols every 6 hours [address] chest reviewed revealed 3.4 x 2.5 right hilar mass with post discharge pneumonia in the right upper lobe. Right middle lobe mass. Pulm is following- Dr. Madison, s/p bronch with BAL 11/01. Cytology positive ( squamous cell carcinoma Renal/: Hypernatremia - resolved Monitor renal function, I/O's, electrolytes replacement per protocol. On free water 200 cc every 6 hours tube feeds On Bumex 1mg BID GI/liver: Mild protein calorie malnutrition Continue with Glucerna 1.5 at 40 cc an hour On famotidine 20mg BID for GI prophylaxis ID: Escherichia coli UTI Postobstructive pneumonia Continue with abx per ID (Aztreonam, Merrem, Diflucan) monitor for signs of infections ( Fever, WBC). Sputum cx 11/09: Pseudomonas, Staph Aureus Follow up on cultures and bronchoscopy 11/01- Yeast species BC 11/04: NGTD Blood cultures 2 - 11/06 - NGTD Sputum 11/06 ESBL E Coli, PSAE, Staph. Strep pneumonia urinary Ag negative. ID is following- Dr. 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 Patient has hilar mass with pulmonary nodules, also thyroid mass. Seen by Oncology-Dr. Xavier patient is not candidate for surgery, chemo radiation give poor performance status, hospice was recommended. Palliative care is following Endocrine: Diabetes mellitus Right thyroid mass 6.8 cm/chronic Increase Levemir 10 units Q12 On SSI medium scale Novulin R for glycemic control. Patient is on insulin glargine at home Prophylaxis: Famotidine 20 mg twice a day via OG tube, SCDs/subcutaneous heparin Level 3 Remains critically ill now with ESBL E Coli and PSAE pneumonia. medical pathologist requiring certification from treatment team prior to proceeding with withdrawal of life support/Hospice Santana Browning MD Nov 12, 2016 07:57
[2016-11-12] MEDS: CHLORHEXIDINE 0.12% (ORAL KIT) 15 ML CUP MT SCH ×2 (08:50→20:20)
[2016-11-12] MEDS: FLUCONAZOLE 100 MG TAB PO SCH (08:51)
[2016-11-12] MEDS: BUMETANIDE INJ 1 MG/4 ML VIAL IV PUSH SCH ×2 (08:51→17:51)
[2016-11-12] MEDS: FAMOTIDINE 20 MG TAB PO SCH ×2 (08:52→20:11)
[2016-11-12] MEDS: LACTOBACILLUS ACIDOPHILUS TAB PO SCH ×3 (08:52→17:51)
[2016-11-12] MEDS: INSULIN DETEMIR 100 UNITS/ML VIAL SQ SCH ×2 (08:57→20:20)
[2016-11-12] MEDS: SODIUM CHLORIDE 0.9% FLUSH 10 ML FLUSH IV FLUSH SCH ×2 (08:57→20:20)
[2016-11-12] MEDS: MUPIROCIN 2% OINT 1 APPLIC/GM SYR EACH NARE SCH ×2 (08:58→20:11)
--- NOTE | 2016-11-12 15:12 | HHI.HCPN ---
Reason for visit a. To assist with evaluation and management of symptoms including: Respiratory distress, Debility. b. To assist medical decision maker(s) with: better understanding of current medical conditions; weighing benefits/burdens of medical treatment options; making medical treatment decisions. . (Alethea Mcfadden) Subjective/Interval History Ms Dalton is a 70 year old female with a medical history of diabetes mellitus, dementia, thyroid disease, anxiety, depression and hyperlipemia, and reactive airway disease. Patient presented to the ED 10/28/16 via EMS after complaining of shortness of breath and intubated due to acute hypoxemic respiratory failure. She has failed all attempts at vent weaning and remains intubated. During her hospitalization she was diagnosed with normal pressure hydrocephalus/ moderate ventriculomegaly, pulmonary nodules concerning for malignancy, with cytology confirming squamous cell carcinoma, severe sepsis, suspected aspiration pneumonia and thyroid mass. Palliative care consulted for further clarifications of goals of care given the above. The medical team determined to attempt weaning trials through the weekend. Patient failed all trials due to tachypnea and agitation. A light sedation trial with Precedex was attempted to again attempt medical extubation, however the patient became tachypneic within 5 minutes and ventilator support had to be resumed. * Laboratory studies - WBC 16.0, hemoglobin 9.1, hematocrit 26.8, platelets 488 , sodium 143, potassium 4.7, BUN 36, creatinine 0.86. Patient has a guardian/veterans employment representative from [place] [facility], [place], who has been working with the political consultant regarding patient's goals of care. Prior to making a decision to stop aggressive care and pursuing hospice care, the political consultant is requesting a letter from the covering physicians certifying that she is hospice appropriate and would benefit from palliative rather than aggressive treatment. Oncology Dr. Xavier consulted 11/08/16, recommended only supportive care and hospice care. Patient is not a candidate for surgery, radiation therapy, chemotherapy and immunotherapy. On 11/12 after consultation with the broom maker, Dr. Browning and palliative care physician, Dr. Stephenson. It was the consensus that she was appropriate for hospice and would benefit more from palliative care then from continuing aggressive care. A letter was signed to this effect and given to COA guardian, [place], who will send this to the marketing strategist for an emergency order to be presented to the political consultant for determination. . Family/friend interactions Discussed findings of the medical team with guardian, [place]. Letter certified physician findings was given to her with copy retained for chart. Judges decision expected within the next 48 hours regarding patient goal of care , palliative versus aggressive. . (Alethea Mcfadden) Advance Directives Living Will: Never completed Health Care Surrogate: Never completed Durable Power of Refueling Ramp Supervisor: Never completed (Alethea Mcfadden) Advance Directive Specifics Health Care Surrogate(s): Patient has a court appointed guardian, [place] [facility] - [place]. . (Alethea Mcfadden) Objective Vital Signs Date Time Temp Pulse Resp B/P (MAP) Pulse Ox O2 Delivery O2 Flow Rate FiO2 11/12/16 11:41 97 50 11/12/16 11:00 98 11/12/16 10:00 90 11/12/16 09:29 50 11/12/16 09:25 92 50 11/12/16 09:00 82 11/12/16 08:00 73 11/12/16 08:00 99.8 73 19 148/67 (94) 86 11/12/16 08:00 35 11/12/16 07:00 73 11/12/16 06:00 78 11/12/16 04:18 100 35 11/12/16 04:00 73 11/12/16 04:00 35 11/12/16 04:00 99.3 73 15 139/64 (89) 100 11/12/16 02:00 77 11/12/16 00:20 100 35 11/12/16 00:00 35 11/12/16 00:00 76 11/12/16 00:00 98.8 76 15 122/59 (80) 100 11/11/16 22:00 76 11/11/16 21:23 100 35 11/11/16 20:00 35 11/11/16 20:00 98.5 93 15 147/70 (95) 100 11/11/16 20:00 93 11/11/16 19:50 100 35 11/11/16 18:00 101 11/11/16 16:00 87 11/11/16 16:00 35 11/11/16 16:00 99.7 87 19 144/66 (92) 90 11/11/16 15:48 91 35 Intake & Output 11/12/16 11/12/16 07:00 19:00 Intake Total 1357 ml Output Total 800 ml Balance 557 ml Intake IV Total 457 ml Tube Feeding 400 ml Tube Irrigant 500 ml Output Urine Total 800 ml # Bowel Movements 2 . Physical Exam CONSTITUTIONAL/GENERAL: This is an elderly, ill looking patient, in no acute distress. Intubated. TUBES/LINES/DRAINS:PIV, ETT, OGT, Jang catheter, SCDs EYES: Pupils equal and round and reactive. No scleral icterus. No injection or drainage. Fundi not examined. ENT: Nose without bleeding or purulent drainage. Orally intubated. NECK: Trachea midline. Supple, nontender. CARDIOVASCULAR: Regular rate and rhythm without murmurs, gallops, or rubs. Peripheral pulses symmetric, decreased. RESPIRATORY/CHEST: Symmetric, unlabored respirations. Rhonchi and wheezy to auscultation. Breath sounds equal bilaterally. GASTROINTESTINAL: Abdomen soft, round, large. No guarding. Bowel sounds present. GENITOURINARY: Without palpable bladder distension. Jang catheter in place. MUSCULOSKELETAL: Extremities without clubbing, cyanosis. Edema to bilateral extremities. No mottling or clubbing. NEUROLOGICAL: Intubated. Not following commands. Not responding to tactile or verbal stimuli. Withdraws to painful stimuli PSYCHIATRIC:Unable to assess, patient intubated, not responding. . (Alethea Mcfadden) Diagnostic Tests Laboratory Laboratory Tests Test 11/10/16 05:53 11/10/16 18:22 11/11/16 03:59 11/12/16 05:58 White Blood Count 14.7 TH/MM3 (4.0-11.0) 12.7 TH/MM3 (4.0-11.0) 16.0 TH/MM3 (4.0-11.0) Red Blood Count 3.01 MIL/MM3 (4.00-5.30) 3.20 MIL/MM3 (4.00-5.30) 3.05 MIL/MM3 (4.00-5.30) Hemoglobin 8.7 GM/DL (11.6-15.3) 9.3 GM/DL (11.6-15.3) 9.1 GM/DL (11.6-15.3) Hematocrit 26.8 % (35.0-46.0) 28.4 % (35.0-46.0) 26.8 % (35.0-46.0) Mean Corpuscular Volume 88.9 FL (80.0-100.0) 88.6 FL (80.0-100.0) 88.0 FL (80.0-100.0) Mean Corpuscular Hemoglobin 28.8 PG (27.0-34.0) 29.0 PG (27.0-34.0) 29.8 PG (27.0-34.0) Mean Corpuscular Hemoglobin Concent 32.4 % (32.0-36.0) 32.8 % (32.0-36.0) 33.9 % (32.0-36.0) Red Cell Distribution Width 14.4 % (11.6-17.2) 14.7 % (11.6-17.2) 14.4 % (11.6-17.2) Platelet Count 390 TH/MM3 (150-450) 451 TH/MM3 (150-450) 488 TH/MM3 (150-450) Mean Platelet Volume 8.4 FL (7.0-11.0) 8.6 FL (7.0-11.0) 9.0 FL (7.0-11.0) Neutrophils (%) (Auto) 70.4 % (16.0-70.0) 72.9 % (16.0-70.0) 67.7 % (16.0-70.0) Lymphocytes (%) (Auto) 16.1 % (9.0-44.0) 13.8 % (9.0-44.0) 17.1 % (9.0-44.0) Monocytes (%) (Auto) 9.0 % (0.0-8.0) 9.5 % (0.0-8.0) 10.5 % (0.0-8.0) Eosinophils (%) (Auto) 3.3 % (0.0-4.0) 2.9 % (0.0-4.0) 3.9 % (0.0-4.0) Basophils (%) (Auto) 1.2 % (0.0-2.0) 0.9 % (0.0-2.0) 0.8 % (0.0-2.0) Neutrophils # (Auto) 10.3 TH/MM3 (1.8-7.7) 9.3 TH/MM3 (1.8-7.7) 10.9 TH/MM3 (1.8-7.7) Lymphocytes # (Auto) 2.4 TH/MM3 (1.0-4.8) 1.8 TH/MM3 (1.0-4.8) 2.7 TH/MM3 (1.0-4.8) Monocytes # (Auto) 1.3 TH/MM3 (0-0.9) 1.2 TH/MM3 (0-0.9) 1.7 TH/MM3 (0-0.9) Eosinophils # (Auto) 0.5 TH/MM3 (0-0.4) 0.4 TH/MM3 (0-0.4) 0.6 TH/MM3 (0-0.4) Basophils # (Auto) 0.2 TH/MM3 (0-0.2) 0.1 TH/MM3 (0-0.2) 0.1 TH/MM3 (0-0.2) CBC Comment AUTO DIFF AUTO DIFF AUTO DIFF Differential Total Cells Counted 100 100 100 Neutrophils % (Manual) 76 % (16-70) 74 % (16-70) 41 % (16-70) Band Neutrophils % 6 % (0-6) 3 % (0-6) 15 % (0-6) Lymphocytes % 13 % (9-44) 8 % (9-44) 20 % (9-44) Monocytes % 4 % (0-8) 9 % (0-8) 16 % (0-8) Eosinophils % 1 % (0-4) 5 % (0-4) 6 % (0-4) Neutrophils # (Manual) 12.1 TH/MM3 (1.8-7.7) 9.9 TH/MM3 (1.8-7.7) 9.0 TH/MM3 (1.8-7.7) Differential Comment FINAL DIFF MANUAL FINAL DIFF MANUAL FINAL DIFF MANUAL Platelet Estimate NORMAL (NORMAL) NORMAL (NORMAL) HIGH (NORMAL) Platelet Morphology Comment NORMAL (NORMAL) NORMAL (NORMAL) CLUMPED (NORMAL) Blood Urea Nitrogen 28 MG/DL (7-18) 29 MG/DL (7-18) 36 MG/DL (7-18) Creatinine 0.75 MG/DL (0.50-1.00) 0.79 MG/DL (0.50-1.00) 0.86 MG/DL (0.50-1.00) Random Glucose 116 MG/DL (74-106) 218 MG/DL (74-106) 243 MG/DL (74-106) Calcium Level 8.4 MG/DL (8.5-10.1) 8.4 MG/DL (8.5-10.1) 7.9 MG/DL (8.5-10.1) Sodium Level 140 MEQ/L (136-145) 140 MEQ/L (136-145) 143 MEQ/L (136-145) Potassium Level 4.0 MEQ/L (3.5-5.1) 4.1 MEQ/L (3.5-5.1) 4.1 MEQ/L (3.5-5.1) 4.7 MEQ/L (3.5-5.1) Chloride Level 111 MEQ/L (98-107) 110 MEQ/L (98-107) 112 MEQ/L (98-107) Carbon Dioxide Level 20.8 MEQ/L (21.0-32.0) 22.0 MEQ/L (21.0-32.0) 22.8 MEQ/L (21.0-32.0) Anion Gap 8 MEQ/L (5-15) 8 MEQ/L (5-15) 8 MEQ/L (5-15) Estimat Glomerular Filtration Rate 76 ML/MIN (>89) 72 ML/MIN (>89) 65 ML/MIN (>89) Myelocytes 1 % (0-0) Red Cell Morphology Comment NORMAL (NORMAL) Basophils % 2 % (0-2) Atypical Lymphocytes % (0-0) . (Alethea Mcfadden) Result Diagram: 11/12/1658 11/12/1658 Microbiology Microbiology Date/Time Source Procedure Growth Status 11/09/16 09:58 Blood Peripheral Aerobic Blood Culture - Preliminary NO GROWTH IN 3 DAYS Resulted 11/09/16 09:58 Blood Peripheral Anaerobic Blood Culture - Preliminary NO GROWTH IN 3 DAYS Resulted 11/09/16 09:30 Sputum Endotracheal Gram Stain - Final Complete 11/09/16 09:30 Sputum Culture - Final Pseudomonas Aeruginosa Staphylococcus Aureus Complete 11/09/16 09:30 Urine Catheterized Urine Urine Culture - Final NO GROWTH IN 48 HOURS. Complete 10/28/16 17:00 Other - Final Complete . Imaging Last Impressions Chest X-Ray 11/12/16 0600 Signed Impressions: Service Date/Time: Saturday, November 12, 2016 04:11 - CONCLUSION: Right greater than left airspace disease modestly worse. Keshav Burks MD Cervical Spine MRI 11/06/16 0000 Signed Impressions: Service Date/Time: Sunday, November 06, 2016 21:36 - CONCLUSION: 1. Multilevel degenerative changes of the cervical spine as above, especially C5/ C6 and C6/C7. 2. Mild to moderate spinal stenosis and severe right foraminal stenosis at C5/C6. 3. Mild spinal stenosis and moderate right foraminal stenosis at C6/C7. 4. No cord compression or cord signal abnormality. 5. No fracture or subluxation. 6. Large nodule of the left lobe of the thyroid gland. There are also upper limits of normal bilateral cervical lymph nodes. Keshav Burks MD Brain MRI 11/06/16 0000 Signed Impressions: Service Date/Time: Sunday, November 06, 2016 21:36 - CONCLUSION: 1. No change or acute abnormality demonstrated. 2. Atrophy, ventriculomegaly and chronic white matter changes are again noted. Keshav Burks MD Thyroid Ultrasound 10/31/16 0000 Signed Impressions: Service Date/Time: Monday, October 31, 2016 11:47 - CONCLUSION: Large complex mass right lobe of the thyroid. Minimally increased in size since Jacoby Torre MD FACR Abdomen X-Ray 10/29/16 0000 Signed Impressions: Service Date/Time: Saturday, October 29, 2016 15:32 - CONCLUSION: Negative for radiopaque foreign bodies. Jacoby Torre MD FACR Chest CT 10/28/164 Signed Impressions: Service Date/Time: Friday, October 28, 2016 18:28 - CONCLUSION: 1. Abnormality on chest radiograph corresponds to a 3.4 x 3.5 cm central right hilar mass/adenopathy with associated postobstructive airspace consolidation in the inferior right upper lobe. There are at least 2 additional pulmonary nodules measuring 13 x 8 mm in the anterior right middle lobe and 8 x 8 mm in the anterior right upper lobe near the apex. 2. 3.9 x 4.3 cm heterogeneous nodule in the right thyroid gland. No significant regional cervical adenopathy. 3. Patchy bilateral lower lobe air space consolidation and diffuse ground glass opacities. Differential considerations include ARDS versus infection versus aspiration. 1. Tyler Selby MD Head CT 10/28/16 0000 Signed Impressions: Service Date/Time: Friday, October 28, 2016 20:44 - CONCLUSION: 1. No bleed or evidence of acute infarction. 2. Atrophy and chronic white matter changes. 3. Moderate ventriculomegaly, beyond that expected for the degree of atrophy. Normal pressure hydrocephalus would be in the differential. Keshav Burks MD Procedures 11/01/16 Bronchoscopy 10/28/16 Intubated and mechanically ventilated . (Alethea Mcfadden) Assessment and Plan Disease Oriented Problem List: (1) Acute respiratory failure requiring reintubation (2) Sepsis (3) Pulmonary nodules (4) Normal pressure hydrocephalus (5) Diabetes mellitus (6) Thyroid mass Symptom Scale: (1) Shortness of breath 0-10 Scale: Unable to quantify Comment: Intubated and mechanically ventilated. . (2) Debility 0-10 Scale: Unable to quantify Comment: Resident of a long-term facility, requiring assistance with ADLs. Progressive debility. . Pertinent Non-Medical Issues Psychosocial: Patient is a resident at a [facility] for [facility] care facility. As per prior medical records from 2007, patient has two sons who reside in the area. Per court appointed guardian, one son is and the other son who once served as patient`s DPOA was not fulfilling his duties and the court appointed a guardian for the patient. 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 Spiritual: Unable to obtain, patient is intubated on mechanical ventilation and sedated. Legal: Patient has a court appointed guardian. Ethical issues impacting care: Patient has a court appointed guardian.Patient has a signed DNR in 2010 by her son prior to court appointed guardian. . Important Contacts [place] [facility]- Court appointed guardian [phone] . Prognosis Ms Dalton is a 70 years old female with a medical history of diabetes mellitus, dementia, thyroid disease, anxiety, depression and hyperlipemia, and reactive airway disease. Patient presented to the ED 10/28/16 via EMS after complaining of shortness of breath. Patient was intubated and placed on mechanical ventilation secondary to acute hypoxemic respiratory failure. 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 Patient's prognosis is guarded. Patient at high risk for further complications, clinical decline and given the above. . Code Status: No Code Plan PLAN: Legal decision maker: Patient has COA guardian, [place]. Goals: 11/09/16 Currently aggressive. Prior to making a decision to stop aggressive care and pursuing hospice care, the political consultant is requesting a letter from the covering physicians certifying that she is hospice appropriate and would benefit from palliative rather than aggressive treatment. Oncology Dr. Xavier consulted 11/08/16, recommended only supportive care and hospice care. Patient is not a candidate for surgery, radiation therapy, chemotherapy and immunotherapy.Dr. Wasserman feels that patient should be given the weekend to see if she can be medically extubated. 11/12/16-patient again failed medical extubation attempts over the weekend and again today. After discussion with the medical team it was determined that the patient is hospice appropriate and would benefit from palliative rather than aggressive treatment. This was put into a document signed by both physicians and forwarded to the COA guardian, [place], to be taken to the political consultant for an emergency decision regarding patient care. CODE STATUS: No Code DNR SYMPTOMS: * Respiratory distress - patient remains intubated on mechanical ventilation. Patient failing CPAP trials, gets tachypneic. Sputum culture positive for Escherichia coli, ESBL positive, pseudomonas aeruginosa, methicillin-resistant staph aureus. ID following. * Debility - admitted from a [facility]ci with significant debility, she has been on bed rest, mechanically ventilated. If goals remain aggressive care patient would benefit from physical therapy. Summary: Will continue current DNR status pending determination from the political consultant regarding withdrawal of ventilator support for palliative treatment. Palliative care will continue to follow the patient during hospital course as condition evolves, to assist patient/decision-maker with understanding of their medical conditions, weighing benefits/burdens of treatment options, for clarification of goals of treatment. Additionally will assist with any symptoms of palliative concern (Alethea Mcfadden) Attestation To help prompt me to consider important information that might be impacting today's encounter and assessment, information from prior notes written by myself or my colleagues may have been "brought forward" into today's note. My signature on this note, however, is an attestation that I personally performed the exam, history, and/or decision-making noted today, and, unless otherwise indicated, the interactions with patient, family, and staff as well as the review of records all occurred today. I also attest that the listed assessment and stated plan reflect my best clinical judgment today based on the combination of historical information, prior notes, and today's exam/ interactions. When time spent is documented, it refers only to time spent today by the signer, or if indicated, combined time spent today by collaborating physician/nurse practitioner. (Alethea Mcfadden) Collaborating MD Comments Chart reviewed. Case discussed with palliative care WASTEWATER ENGINEER. Above note reviewed and I concur. . (Jhonatan Stephenson MD) Alethea Mcfadden Nov 12, 2016 15:12 Jhonatan Stephenson MD Nov 18, 2016 12:08
--- NOTE | 2016-11-12 18:16 | HHI.PR ---
Subjective Remarks 70 YOWF with VDRF,Pneumonia, ? Aspiration Off sedation Bronchial wash Sq cell ca Opens eyes, does't follow commands Did't tolerate CPAP Objective Vital Signs Vital Signs Date Time Temp Pulse Resp B/P (MAP) Pulse Ox O2 Delivery O2 Flow Rate FiO2 11/12/16 18:00 120 11/12/16 17:00 88 50 11/12/16 17:00 116 11/12/16 16:00 103 11/12/16 16:00 35 11/12/16 16:00 98.9 103 21 157/72 (100) 94 11/12/16 15:00 101 11/12/16 14:00 92 11/12/16 13:00 105 11/12/16 12:00 100.1 104 24 160/74 (102) 90 11/12/16 12:00 35 11/12/16 12:00 104 11/12/16 11:41 97 50 11/12/16 11:00 98 11/12/16 10:00 90 11/12/16 09:29 50 11/12/16 09:25 92 50 11/12/16 09:00 82 11/12/16 08:00 73 11/12/16 08:00 99.8 73 19 148/67 (94) 86 11/12/16 08:00 35 11/12/16 07:00 73 11/12/16 06:00 78 11/12/16 04:18 100 35 11/12/16 04:00 73 11/12/16 04:00 35 11/12/16 04:00 99.3 73 15 139/64 (89) 100 11/12/16 02:00 77 11/12/16 00:20 100 35 11/12/16 00:00 35 11/12/16 00:00 76 11/12/16 00:00 98.8 76 15 122/59 (80) 100 11/11/16 22:00 76 11/11/16 21:23 100 35 11/11/16 20:00 35 11/11/16 20:00 98.5 93 15 147/70 (95) 100 11/11/16 20:00 93 11/11/16 19:50 100 35 I/O 11/11/16 11/11/16 11/11/16 11/12/16 11/12/16 11/12/16 07:00 15:00 23:00 07:00 15:00 23:00 Intake Total 880 ml 882 ml 1363 ml 1305 ml 1045 ml Output Total 650 ml 1500 ml 800 ml 1450 ml Balance 230 ml 882 ml -137 ml 505 ml -405 ml Intake IV Total 882 ml 319 ml 405 ml Tube Feeding 480 ml 484 ml 400 ml 445 ml Tube Irrigant 500 ml Other 400 ml 560 ml 600 ml Output Urine Total 650 ml 1500 ml 800 ml 1450 ml # Bowel Movements 1 2 2 2 Result Diagram: 11/12/1655711/12/16557 Objective Remarks GENERAL: MBMN WF, intubated, sedated SKIN: Warm and dry. HEAD: Normocephalic. EYES: No scleral icterus. No injection or drainage. NECK: Supple, trachea midline. No JVD or lymphadenopathy. CARDIOVASCULAR: Regular rate and rhythm without murmurs, gallops, or rubs. RESPIRATORY: Breath sounds equal bilaterally. No accessory muscle use. GASTROINTESTINAL: Abdomen soft, non-tender, nondistended. MUSCULOSKELETAL: No cyanosis, or edema. BACK: Nontender without obvious deformity. No CVA tenderness. A/P Assessment and Plan VDRF Pneumonia Aspiration DM Dementia Ventriculomegaly Squamous cell ca PLAN: Vent Support -AC 14, Fi02 35% Cont Abx Aerosol nebs SQ Heparin Code status DNR Prognosis poor Luis Madison MD Nov 12, 2016 18:16
[2016-11-12] MEDS: ACETAMINOPHEN 325 MG TAB PO PRN (20:30)
[2016-11-12] MEDS: LABETALOL HCL 100 MG/20 ML VIAL IV PUSH PRN (20:32)
[2016-11-13] VITALS (19 sets, daily range): BP systolic 149–169; BP diastolic 64–74; PULSE 91–124; RESP 19–31; TEMP 98–100.7; O2SAT 91–100
[2016-11-13] MEDS: AZTREONAM INJ 2,000 MG in SODIUM CHLORIDE 0.9% INJ 100 ML IV SCH ×3 (00:20→15:10)
[2016-11-13] MEDS: MEROPENEM INJ 1,000 MG in SODIUM CHLORIDE 0.9% INJ 100 ML IV SCH ×3 (00:20→21:30)
[2016-11-13] MEDS: METOPROLOL TARTRATE 50 MG TAB PO SCH ×4 (00:22→21:30)
[2016-11-13] MEDS: cloNIDine HCL 0.1 MG TAB PO SCH ×4 (00:22→21:30)
[2016-11-13] MEDS: HEPARIN SODIUM - SQ 10,000 UNITS/ML VIAL SQ SCH ×3 (00:23→15:11)
[2016-11-13] MEDS: INSULIN NovoLIN REGULAR SUPPLEMENTAL SCALE SQ SCH ×4 (02:00→20:00)
[2016-11-13] MEDS: RESP: SODIUM CHLORIDE 3% 4 ML NEB NEB SCH ×4 (03:42→20:36)
[2016-11-13 04:00] LABS: BASOPHIL # 0.2 TH/MM3 (0-0.2); BASOPHIL % 1.4 % (0.0-2.0); EOSINOPHIL # 0.2 TH/MM3 (0-0.4); EOSINOPHIL % 1.7 % (0.0-4.0); HEMATOCRIT 30.3 % (35.0-46.0); HEMO FLAGS DIFF FINAL; LYMPH % 17.8 % (9.0-44.0); LYMPHOCYTE # 2.5 TH/MM3 (1.0-4.8); MEAN CELL VOLUME 87.3 FL (80.0-100.0); MEAN CORPUSCULAR HEMOGLOBIN 28.9 PG (27.0-34.0); MEAN CORPUSCULAR HGB CONC 33.1 % (32.0-36.0); MONO % 7.5 % (0.0-8.0); NEUT % 71.6 % (16.0-70.0); PLATELET COUNT 565 TH/MM3 (150-450); RED BLOOD COUNT 3.47 MIL/MM3 (4.00-5.30); WHITE BLOOD COUNT 13.9 TH/MM3 (4.0-11.0)
[2016-11-13] MEDS: CHLORHEXIDINE GLUCONATE 2 % 1 PACK (2 CLOTHS) TOP SCH (04:00)
[2016-11-13 04:33] LABS: BICARBONATE 25.5 MEQ/L (21.0-32.0); POTASSIUM 3.8 MEQ/L (3.5-5.1)
[2016-11-13] MEDS: ARTIFICIAL TEARS OPTH SOLN 15 ML BTL EACH EYE SCH ×3 (05:11→21:03)
[2016-11-13] MEDS: levETIRAcetam INJ 500 MG in SODIUM CHLORIDE 0.9% INJ 100 ML IV SCH ×2 (05:11→15:10)
[2016-11-13] MEDS: [UNRECOGNIZED DRUG - REMARK] NG SCH ×4 (05:11→18:00)
[2016-11-13] MEDS: CHLORHEXIDINE 0.12% (ORAL KIT) 15 ML CUP MT SCH ×2 (08:00→21:03)
[2016-11-13] MEDS: RESP: ALBUTEROL 2.5 MG/3 ML NEB (PRN) NEB ×2 (08:14→15:38)
[2016-11-13] MEDS: FAMOTIDINE 20 MG TAB PO SCH ×2 (08:31→21:00)
[2016-11-13] MEDS: FLUCONAZOLE 100 MG TAB PO SCH (08:31)
[2016-11-13] MEDS: BUMETANIDE INJ 1 MG/4 ML VIAL IV PUSH SCH (08:31)
[2016-11-13] MEDS: MUPIROCIN 2% OINT 1 APPLIC/GM SYR EACH NARE SCH ×2 (08:32→21:00)
[2016-11-13] MEDS: INSULIN DETEMIR 100 UNITS/ML VIAL SQ SCH ×3 (08:54→21:02)
--- NOTE | 2016-11-13 08:59 | HHI.CCPN ---
Subjective Remarks/Hospital Course HPI 70-year-old prison resident with a medical history significant for dementia, diabetes mellitus, hyperlipidemia, reactive airway disease who was found to have [facility] status [facility] the [facility] for which [facility] was called. Patient was noted to have O2 sats in the 70s. She was very apneic with her head slumped down. Paramedics report of having to hold her head up to have her breathe with the nebulizer treatment in place. Patient was given Solu- Medrol 125 mg IV and 4 nebulizer treatments prior to arrival in the ER for documentation. On arrival in the ER patient was extremely lethargic however was reportedly able to answer some questions. Patient was felt not to be able to protect her airway as well as very hypoxic and hence was intubated by ER physician and placed on mechanical ventilation. Chest x-ray in the ER showed bilateral infiltrates and possible cavitary lesion. She was accepted for admission by critical care medicine service. CT chest was ordered by ER physician. When I evaluated the patient in the ER she was sedated with propofol , orally intubated on mechanical ventilation. History was obtained by reviewing records and discussion with ER physician. 10/29 Patient is sedated with Diprivan and intubated. Afebrile. 10/30 Patient remains sedated and intubated. T:99.7 last night. 10/31: Intubated sedated. CT reviewed and discussed with Dr. Madison. Will consider Bronch. Also check thyroid US and possible biopsy. Check thyroid studies. Also consult palliative care as patient has underlying dementia with NPH and possible malignancy. 11/01: Tmax 100.3. Plan for bronchoscopy at 3:00 today. Noted thyroid masses chronic/since 2011. Tolerating tube feeding. Positive BM. 11/02: Tmax 100.1. Status post bronchoscopy yesterday with removal of mucous plugging. Tolerating tube feeds. Positive BM. Weaning propofol sedation today. 11/03: Tmax 100.6. Noted elevated leukocytosis. Weaning sedation. Positive BM. Tolerate tube feeding. 11/04: Afebrile. UA negative. C. difficile pending. 4 bowel movement overnight. Tolerating tube feeding. No new issues. 11/05 Patient is sedated with Diprivan and intubated. T:100.7. Given Labetalol 10mg IV x3 for hypertension overnight. 11/06 No events overnight. Off sedation. T: 101.5 last night. Subjective 11/07: Tmax 102. Currently 100.6. Continues off sedation. Eyes are open to voice but not falling commands. Noted MRI brain unchanged. MRI C-spine revealed no cord compression or cord abnormality's. Severe C5/6 right foraminal narrowing 11/08: Remains intubated sedated, intermittently opens eyes. 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 Prior to making a decision to withdraw from life support, the moth exterminator is requesting a letter from the covering physicians certifying that she is hospice appropriate and palliative rather than aggressive treatment is appropriate. Dr. Madison thinks hospice is appropriate but also recommends Oncology input. I have consulted medical oncology 11/09 Patient remains intubated, on no sedation, Tmax 103.1 gets tachypneic with CPAP trials 11/10 Patient is intubated had T:100.3 last night. Doesn't follow commands. 11/11 No events overnight. Placed on Precedex drip yesterday to facilitate with weaning trials. T: 99.7. Awake looking around with her eyes but does not following commands. 11/12 Patient remains intubated. On Precedex drip. Did not tolerate CPAP trials yesterday. 11/13 No events overnight. Intubated doesn't tolerate CPAP trials. T:100.5 last night. Objective Vital Signs Date Time Temp Pulse Resp B/P (MAP) Pulse Ox O2 Delivery O2 Flow Rate FiO2 11/13/16 08:14 100 50 11/13/16 06:00 96 11/13/16 04:00 19 161/73 (102) 11/13/16 04:00 99.4 Intake and Output 11/13/16 11/13/16 11/14/16 08:00 16:00 00:00 Intake Total 1140 ml Output Total 1500 ml Balance -360 ml Result Diagram: 11/13/16 0342 11/13/16 0342 Other Results Laboratory Tests Test 11/13/16 03:42 White Blood Count 13.9 TH/MM3 Red Blood Count 3.47 MIL/MM3 Hemoglobin 10.0 GM/DL Hematocrit 30.3 % Mean Corpuscular Volume 87.3 FL Mean Corpuscular Hemoglobin 28.9 PG Mean Corpuscular Hemoglobin Concent 33.1 % Red Cell Distribution Width 14.0 % Platelet Count 565 TH/MM3 Mean Platelet Volume 8.1 FL Neutrophils (%) (Auto) 71.6 % Lymphocytes (%) (Auto) 17.8 % Monocytes (%) (Auto) 7.5 % Eosinophils (%) (Auto) 1.7 % Basophils (%) (Auto) 1.4 % Neutrophils # (Auto) 10.0 TH/MM3 Lymphocytes # (Auto) 2.5 TH/MM3 Monocytes # (Auto) 1.0 TH/MM3 Eosinophils # (Auto) 0.2 TH/MM3 Basophils # (Auto) 0.2 TH/MM3 CBC Comment DIFF FINAL Differential Comment Blood Urea Nitrogen 37 MG/DL Creatinine 0.92 MG/DL Random Glucose 275 MG/DL Calcium Level 8.5 MG/DL Sodium Level 145 MEQ/L Potassium Level 3.8 MEQ/L Chloride Level 111 MEQ/L Carbon Dioxide Level 25.5 MEQ/L Anion Gap 9 MEQ/L Estimat Glomerular Filtration Rate 60 ML/MIN Imaging Last Impressions Chest X-Ray 11/12/16 0600 Signed Impressions: Service Date/Time: Saturday, November 12, 2016 04:11 - CONCLUSION: Right greater than left airspace disease modestly worse. Keshav Burks MD Cervical Spine MRI 11/06/16 0000 Signed Impressions: Service Date/Time: Sunday, November 06, 2016 21:36 - CONCLUSION: 1. Multilevel degenerative changes of the cervical spine as above, especially C5/ C6 and C6/C7. 2. Mild to moderate spinal stenosis and severe right foraminal stenosis at C5/C6. 3. Mild spinal stenosis and moderate right foraminal stenosis at C6/C7. 4. No cord compression or cord signal abnormality. 5. No fracture or subluxation. 6. Large nodule of the left lobe of the thyroid gland. There are also upper limits of normal bilateral cervical lymph nodes. Keshav Burks MD Brain MRI 11/06/16 0000 Signed Impressions: Service Date/Time: Sunday, November 06, 2016 21:36 - CONCLUSION: 1. No change or acute abnormality demonstrated. 2. Atrophy, ventriculomegaly and chronic white matter changes are again noted. Keshav Burks MD Thyroid Ultrasound 10/31/16 0000 Signed Impressions: Service Date/Time: Monday, October 31, 2016 11:47 - CONCLUSION: Large complex mass right lobe of the thyroid. Minimally increased in size since Jacoby Torre MD FACR Abdomen X-Ray 10/29/16 0000 Signed Impressions: Service Date/Time: Saturday, October 29, 2016 15:32 - CONCLUSION: Negative for radiopaque foreign bodies. Jacoby Torre MD FACR Chest CT 10/28/16 1814 Signed Impressions: Service Date/Time: Friday, October 28, 2016 18:28 - CONCLUSION: 1. Abnormality on chest radiograph corresponds to a 3.4 x 3.5 cm central right hilar mass/adenopathy with associated postobstructive airspace consolidation in the inferior right upper lobe. There are at least 2 additional pulmonary nodules measuring 13 x 8 mm in the anterior right middle lobe and 8 x 8 mm in the anterior right upper lobe near the apex. 2. 3.9 x 4.3 cm heterogeneous nodule in the right thyroid gland. No significant regional cervical adenopathy. 3. Patchy bilateral lower lobe air space consolidation and diffuse ground glass opacities. Differential considerations include ARDS versus infection versus aspiration. 1. Tyler Selby MD Head CT 10/28/16 0000 Signed Impressions: Service Date/Time: Friday, October 28, 2016 20:44 - CONCLUSION: 1. No bleed or evidence of acute infarction. 2. Atrophy and chronic white matter changes. 3. Moderate ventriculomegaly, beyond that expected for the degree of atrophy. Normal pressure hydrocephalus would be in the differential. Keshav Burks MD Objective Remarks GENERAL: 71-year-old female, critically ill currently orotracheally intubated SKIN: Warm and dry. HEAD: Atraumatic. Normocephalic. EYES: Pupils equal and round about 3 mm bilaterally and reactive. No scleral icterus. No injection or drainage. ENT: No nasal bleeding or discharge. Orotracheally intubated NECK: Trachea midline. No JVD. Right-sided thyromegaly/palpable mass noted CARDIOVASCULAR: Tachycardic, RR. S1, S2 no S4. Without murmur RESPIRATORY: Diminished breath sounds right upper lobe. Coarse crackles appreciated bilaterally. Also bilateral course rhonchi GASTROINTESTINAL: Abdomen soft, non-tender, nondistended. Hepatic and splenic margins not palpable. MUSCULOSKELETAL: Extremities bilateral trace nonpitting lower extremity edema. No obvious deformities. NEUROLOGICAL: Positive gag. Positive corneal reflex. Not following commands upper or lower extremity. Upward toes. A/P Assessment and Plan Plan: Neuro/Psych: Depression/anxiety Toxic metabolic encephalopathy Ventriculomegaly History of dementia Off sedation, monitor neuro status. On Precedex drip to facilitate with weaning trials. EEG 11/06 revealed triphasic sway/diffuse sharp waves likely moderate encephalopathy cannot rule out proclivity of seizure Neuro eval for encephalopathy with Dr. Sampson noted CT brain: Moderate ventriculomegaly, beyond that expected for the degree of atrophy. MRI confirms. Neurosurgery is following- Dr. Hernandez No acute intervention Repeat MRI brain 11/06 stable for ventriculomegaly. No other acute findings Currently holding home medications clonazepam 0.5 mg twice a day and quetiapine 25 mg at night On levetiracetam 500 mg IV twice a day per neurology's EEG above As needed fentanyl 50 every 8 hours when necessary pain CV: Hypertension Dyslipidemia On Lopressor 50mg Q8, amlodipine 10mg daily, Clonidine 0.2mg Q8, -Monitor HR and BP keep MAP>65mmHg Home medication for hypertension include amlodipine 10 mg by mouth daily and carvedilol 25 mg by mouth twice a day As needed hydralazine and labetalol and Nitropaste for hypertension Currently holding atorvastatin 40 mg by mouth daily for dyslipidemia. Pulm Acute hypoxemic respiratory failure possibly secondary to post obstructive pneumonia Squamous cell carcinoma of Lung PRVC 12/500/0//. Ventilator bundle Albuterol/ipratropium aerosols every 6 hours with albuterol aerosols every 2 hours. Dyspnea. At 3% saline aerosols every 6 hours [address] chest reviewed revealed 3.4 x 2.5 right hilar mass with post discharge pneumonia in the right upper lobe. Right middle lobe mass. Pulm is following- Dr. Madison, s/p bronch with BAL 11/01. Cytology positive ( squamous cell carcinoma Renal/: Hypernatremia - resolved Monitor renal function, I/O's, electrolytes replacement per protocol. On free water 200 cc every 6 hours tube feeds d/c Bumex GI/liver: Mild protein calorie malnutrition Continue with Glucerna 1.5 at 40 cc an hour On famotidine 20mg BID for GI prophylaxis ID: Escherichia coli UTI Postobstructive pneumonia Continue with abx per ID (Aztreonam, Merrem, Diflucan) monitor for signs of infections ( Fever, WBC). Sputum cx 11/09: Pseudomonas, Staph Aureus Follow up on cultures and bronchoscopy 11/01- Yeast species BC 11/04: NGTD Blood cultures 2 - 11/06 - NGTD Sputum 11/06 ESBL E Coli, PSAE, Staph. Strep pneumonia urinary Ag negative. ID is following- Dr. 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 Patient has hilar mass with pulmonary nodules, also thyroid mass. Seen by Oncology-Dr. Xavier patient is not candidate for surgery, chemo radiation give poor performance status, hospice was recommended. Palliative care is following Endocrine: Diabetes mellitus Right thyroid mass 6.8 cm/chronic Increase Levemir 14 units Q12 On SSI medium scale Novulin R for glycemic control. Patient is on insulin glargine at home Prophylaxis: Famotidine 20 mg twice a day via OG tube, SCDs/subcutaneous heparin Level 3 Remains critically ill now with ESBL E Coli and PSAE pneumonia. 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 Santana Browning MD Nov 13, 2016 08:59
[2016-11-13] MEDS: LACTOBACILLUS ACIDOPHILUS TAB PO SCH ×3 (09:00→17:51)
[2016-11-13] MEDS: SODIUM CHLORIDE 0.9% FLUSH 10 ML FLUSH IV FLUSH SCH ×2 (09:00→21:03)
--- NOTE | 2016-11-13 12:35 | HHI.HCPN ---
Reason for visit a. To assist with evaluation and management of symptoms including: dyspnea, debility. b. To assist medical decision maker(s) with: better understanding of current medical conditions; weighing benefits/burdens of medical treatment options; making medical treatment decisions. . (Mirlande Pak) Subjective/Interval History Patient seen and examined in ICU. Discussed with nurse. Awaiting court decision regarding request for withdrawal of life support with hospice services. Patient continues to fail CPAP trials. Tmax 100.7. Tachycardic rate 100-110. WBC 13.9. No new imaging. . [facility] interactions [facility]. She reports letter was sent to refractory repairer last night. She is waiting to hear refractory repairer determination. She will keep us updated. Discussed hospice services and care center placement if needed. She agrees. . (Mirlande Pak) Advance Directives Living Will: Never completed Health Care Surrogate: Never completed Durable Power of Oven Technician: Never completed (Mirlande Pak) Advance Directive Specifics Health Care Surrogate(s): Patient has a court appointed guardian, [place] [facility] - [place]. . Significant change in goals: NO CODE. Awaiting court decision regarding request for withdrawal of life support and hospice services. . (Mirlande Pak) Objective Vital Signs Date Time Temp Pulse Resp B/P (MAP) Pulse Ox O2 Delivery O2 Flow Rate FiO2 11/13/16 12:00 100.7 107 27 159/71 (100) 100 11/13/16 12:00 50 11/13/16 12:00 106 11/13/16 10:45 100 50 11/13/16 10:00 107 11/13/16 08:14 100 50 11/13/16 08:00 99.0 91 31 149/64 (92) 100 11/13/16 08:00 107 11/13/16 08:00 50 11/13/16 06:00 96 11/13/16 04:00 113 11/13/16 04:00 50 11/13/16 04:00 113 19 161/73 (102) 100 11/13/16 04:00 99.4 113 19 161/73 (102) 100 11/13/16 03:36 91 50 10/3/17 02:00 104 11/13/16 00:00 124 11/13/16 00:00 99.5 124 19 156/72 (100) 100 11/13/16 00:00 50 11/12/16 23:37 100 50 11/12/16 22:41 18 11/12/16 22:00 119 11/12/16 20:14 100 50 11/12/16 20:00 50 11/12/16 20:00 100.5 123 19 171/77 (108) 99 11/12/16 20:00 123 11/12/16 18:00 120 11/12/16 17:00 88 50 11/12/16 17:00 116 11/12/16 16:00 103 11/12/16 16:00 35 11/12/16 16:00 98.9 103 21 157/72 (100) 94 11/12/16 15:00 101 11/12/16 14:00 92 11/12/16 13:00 105 Intake & Output 11/13/16 11/13/16 07:00 19:00 Intake Total 1440 ml 100 ml Output Total 1500 ml Balance -60 ml 100 ml Intake IV Total 600 ml 100 ml Tube Feeding 440 ml Other 400 ml Output Urine Total 1500 ml # Bowel Movements 1 Physical Exam CONSTITUTIONAL/GENERAL: This is an elderly, critically, chronically ill patient, on mech vent. TUBES/LINES/DRAINS:PIV, ETT, OGT, Jang catheter, SCDs EYES: Pupils equal and round and reactive. No scleral icterus. No injection or drainage. Fundi not examined. ENT: Nose without bleeding or purulent drainage. Orally intubated. NECK: Trachea midline. CARDIOVASCULAR: Regular rate and rhythm without murmurs, gallops, or rubs. Peripheral pulses symmetric, decreased. RESPIRATORY/CHEST: Symmetric, unlabored respirations. Rhonchi and wheezy to auscultation. Breath sounds equal bilaterally. GASTROINTESTINAL: Abdomen soft, round, large. No guarding. Bowel sounds present. GENITOURINARY: Without palpable bladder distension. Jang catheter in place. MUSCULOSKELETAL: Extremities without clubbing, cyanosis. Edema to bilateral extremities. No mottling or clubbing. NEUROLOGICAL: Intubated. Not following commands. Not responding to tactile or verbal stimuli. Withdraws to painful stimuli PSYCHIATRIC: Unable to assess, patient intubated, not responding. . (Mirlande Pak) Diagnostic Tests Laboratory Laboratory Tests Test 11/10/16 18:22 11/11/16 03:59 11/12/16 05:58 11/13/16 03:42 Potassium Level 4.1 MEQ/L (3.5-5.1) 4.1 MEQ/L (3.5-5.1) 4.7 MEQ/L (3.5-5.1) 3.8 MEQ/L (3.5-5.1) White Blood Count 12.7 TH/MM3 (4.0-11.0) 16.0 TH/MM3 (4.0-11.0) 13.9 TH/MM3 (4.0-11.0) Red Blood Count 3.20 MIL/MM3 (4.00-5.30) 3.05 MIL/MM3 (4.00-5.30) 3.47 MIL/MM3 (4.00-5.30) Hemoglobin 9.3 GM/DL (11.6-15.3) 9.1 GM/DL (11.6-15.3) 10.0 GM/DL (11.6-15.3) Hematocrit 28.4 % (35.0-46.0) 26.8 % (35.0-46.0) 30.3 % (35.0-46.0) Mean Corpuscular Volume 88.6 FL (80.0-100.0) 88.0 FL (80.0-100.0) 87.3 FL (80.0-100.0) Mean Corpuscular Hemoglobin 29.0 PG (27.0-34.0) 29.8 PG (27.0-34.0) 28.9 PG (27.0-34.0) Mean Corpuscular Hemoglobin Concent 32.8 % (32.0-36.0) 33.9 % (32.0-36.0) 33.1 % (32.0-36.0) Red Cell Distribution Width 14.7 % (11.6-17.2) 14.4 % (11.6-17.2) 14.0 % (11.6-17.2) Platelet Count 451 TH/MM3 (150-450) 488 TH/MM3 (150-450) 565 TH/MM3 (150-450) Mean Platelet Volume 8.6 FL (7.0-11.0) 9.0 FL (7.0-11.0) 8.1 FL (7.0-11.0) Neutrophils (%) (Auto) 72.9 % (16.0-70.0) 67.7 % (16.0-70.0) 71.6 % (16.0-70.0) Lymphocytes (%) (Auto) 13.8 % (9.0-44.0) 17.1 % (9.0-44.0) 17.8 % (9.0-44.0) Monocytes (%) (Auto) 9.5 % (0.0-8.0) 10.5 % (0.0-8.0) 7.5 % (0.0-8.0) Eosinophils (%) (Auto) 2.9 % (0.0-4.0) 3.9 % (0.0-4.0) 1.7 % (0.0-4.0) Basophils (%) (Auto) 0.9 % (0.0-2.0) 0.8 % (0.0-2.0) 1.4 % (0.0-2.0) Neutrophils # (Auto) 9.3 TH/MM3 (1.8-7.7) 10.9 TH/MM3 (1.8-7.7) 10.0 TH/MM3 (1.8-7.7) Lymphocytes # (Auto) 1.8 TH/MM3 (1.0-4.8) 2.7 TH/MM3 (1.0-4.8) 2.5 TH/MM3 (1.0-4.8) Monocytes # (Auto) 1.2 TH/MM3 (0-0.9) 1.7 TH/MM3 (0-0.9) 1.0 TH/MM3 (0-0.9) Eosinophils # (Auto) 0.4 TH/MM3 (0-0.4) 0.6 TH/MM3 (0-0.4) 0.2 TH/MM3 (0-0.4) Basophils # (Auto) 0.1 TH/MM3 (0-0.2) 0.1 TH/MM3 (0-0.2) 0.2 TH/MM3 (0-0.2) CBC Comment AUTO DIFF AUTO DIFF DIFF FINAL Differential Total Cells Counted 100 100 Neutrophils % (Manual) 74 % (16-70) 41 % (16-70) Band Neutrophils % 3 % (0-6) 15 % (0-6) Lymphocytes % 8 % (9-44) 20 % (9-44) Monocytes % 9 % (0-8) 16 % (0-8) Eosinophils % 5 % (0-4) 6 % (0-4) Neutrophils # (Manual) 9.9 TH/MM3 (1.8-7.7) 9.0 TH/MM3 (1.8-7.7) Myelocytes 1 % (0-0) Differential Comment FINAL DIFF MANUAL FINAL DIFF MANUAL Platelet Estimate NORMAL (NORMAL) HIGH (NORMAL) Platelet Morphology Comment NORMAL (NORMAL) CLUMPED (NORMAL) Red Cell Morphology Comment NORMAL (NORMAL) Blood Urea Nitrogen 29 MG/DL (7-18) 36 MG/DL (7-18) 37 MG/DL (7-18) Creatinine 0.79 MG/DL (0.50-1.00) 0.86 MG/DL (0.50-1.00) 0.92 MG/DL (0.50-1.00) Random Glucose 218 MG/DL (74-106) 243 MG/DL (74-106) 275 MG/DL (74-106) Calcium Level 8.4 MG/DL (8.5-10.1) 7.9 MG/DL (8.5-10.1) 8.5 MG/DL (8.5-10.1) Sodium Level 140 MEQ/L (136-145) 143 MEQ/L (136-145) 145 MEQ/L (136-145) Chloride Level 110 MEQ/L (98-107) 112 MEQ/L (98-107) 111 MEQ/L (98-107) Carbon Dioxide Level 22.0 MEQ/L (21.0-32.0) 22.8 MEQ/L (21.0-32.0) 25.5 MEQ/L (21.0-32.0) Anion Gap 8 MEQ/L (5-15) 8 MEQ/L (5-15) 9 MEQ/L (5-15) Estimat Glomerular Filtration Rate 72 ML/MIN (>89) 65 ML/MIN (>89) 60 ML/MIN (>89) Basophils % 2 % (0-2) Atypical Lymphocytes % (0-0) (Mirlande Pak) Result Diagram: 11/13/16 0342 11/13/16 0342 Microbiology Microbiology Date/Time Source Procedure Growth Status 11/09/16 09:58 Blood Peripheral Aerobic Blood Culture - Preliminary NO GROWTH IN 4 DAYS Resulted 11/09/16 09:58 Blood Peripheral Anaerobic Blood Culture - Preliminary NO GROWTH IN 4 DAYS Resulted 11/09/16 09:30 Sputum Endotracheal Gram Stain - Final Complete 11/09/16 09:30 Sputum Culture - Final Pseudomonas Aeruginosa Staphylococcus Aureus Complete 11/09/16 09:30 Urine Catheterized Urine Urine Culture - Final NO GROWTH IN 48 HOURS. Complete 10/28/16 17:00 Other - Final Complete Imaging Last Impressions Chest X-Ray 11/12/16 0600 Signed Impressions: Service Date/Time: Saturday, November 12, 2016 04:11 - CONCLUSION: Right greater than left airspace disease modestly worse. Keshav Burks MD Cervical Spine MRI 11/06/16 0000 Signed Impressions: Service Date/Time: Sunday, November 06, 2016 21:36 - CONCLUSION: 1. Multilevel degenerative changes of the cervical spine as above, especially C5/ C6 and C6/C7. 2. Mild to moderate spinal stenosis and severe right foraminal stenosis at C5/C6. 3. Mild spinal stenosis and moderate right foraminal stenosis at C6/C7. 4. No cord compression or cord signal abnormality. 5. No fracture or subluxation. 6. Large nodule of the left lobe of the thyroid gland. There are also upper limits of normal bilateral cervical lymph nodes. Keshav Burks MD Brain MRI 11/06/16 0000 Signed Impressions: Service Date/Time: Sunday, November 06, 2016 21:36 - CONCLUSION: 1. No change or acute abnormality demonstrated. 2. Atrophy, ventriculomegaly and chronic white matter changes are again noted. Keshav Burks MD Thyroid Ultrasound 10/31/16 0000 Signed Impressions: Service Date/Time: Monday, October 31, 2016 11:47 - CONCLUSION: Large complex mass right lobe of the thyroid. Minimally increased in size since Jacoby Torre MD FACR Abdomen X-Ray 10/29/16 0000 Signed Impressions: Service Date/Time: Saturday, October 29, 2016 15:32 - CONCLUSION: Negative for radiopaque foreign bodies. Jacoby Torre MD FACR Chest CT 10/28/16 1814 Signed Impressions: Service Date/Time: Friday, October 28, 2016 18:28 - CONCLUSION: 1. Abnormality on chest radiograph corresponds to a 3.4 x 3.5 cm central right hilar mass/adenopathy with associated postobstructive airspace consolidation in the inferior right upper lobe. There are at least 2 additional pulmonary nodules measuring 13 x 8 mm in the anterior right middle lobe and 8 x 8 mm in the anterior right upper lobe near the apex. 2. 3.9 x 4.3 cm heterogeneous nodule in the right thyroid gland. No significant regional cervical adenopathy. 3. Patchy bilateral lower lobe air space consolidation and diffuse ground glass opacities. Differential considerations include ARDS versus infection versus aspiration. 1. Tyler Selby MD Head CT 10/28/16 0000 Signed Impressions: Service Date/Time: Friday, October 28, 2016 20:44 - CONCLUSION: 1. No bleed or evidence of acute infarction. 2. Atrophy and chronic white matter changes. 3. Moderate ventriculomegaly, beyond that expected for the degree of atrophy. Normal pressure hydrocephalus would be in the differential. Keshav Burks MD Procedures 11/01/16 Bronchoscopy 10/28/16 Intubated and mechanically ventilated . (Mirlande Pak) Assessment and Plan Disease Oriented Problem List: (1) Acute respiratory failure requiring reintubation (2) Sepsis (3) Pulmonary nodules (4) Normal pressure hydrocephalus (5) Diabetes mellitus (6) Thyroid mass Symptom Scale: (1) Shortness of breath 0-10 Scale: Unable to quantify Comment: Intubated and mechanically ventilated. . (2) Debility 0-10 Scale: Unable to quantify Comment: Resident of a long-term facility, requiring assistance with ADLs. Progressive debility. . Pertinent Non-Medical Issues Psychosocial: Patient is a resident at a [facility] care facility. As per prior medical records from 2007, patient has two sons who reside in the area. Per court appointed guardian, one son is and the other son who once served as patient`s DPOA was not fulfilling his duties and the court appointed a guardian for the patient. 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 Spiritual: Unable to obtain, patient is intubated on mechanical ventilation and sedated. Legal: Patient has a court appointed guardian. Ethical issues impacting care: Patient has a court appointed guardian.Patient has a signed DNR in 2010 by her son prior to court appointed guardian. . Important Contacts [place] [facility]- Court appointed guardian . Prognosis Ms Dalton is a 70 years old female with a medical history of diabetes mellitus, dementia, thyroid disease, anxiety, depression and hyperlipemia, and reactive airway disease. Patient presented to the ED 10/28/16 via EMS after complaining of shortness of breath. Patient was intubated and placed on mechanical ventilation secondary to acute hypoxemic respiratory failure. 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 Patient's prognosis is guarded. Patient at high risk for further complications, clinical decline and given the above. . Code Status: No Code Plan * Legal decision maker: Patient has COA guardian, [place]. * NO CODE - per legal recommendation to honor prior [place] DNR order. * Goals: Patient continues to fail CPAP trials. After discussion with the medical team it was determined that the patient is hospice appropriate and would benefit from transition to comfort measures with withdrawal of life support. Letter to summarize medical problems, prognosis and recommendation for comfort measures was signed by Dr. Wasserman and Dr. Stephenson and forwarded to the COA guardian, [place]. Update provided to [place] ([facility]). Awaiting court determination by refractory repairer for an emergency decision regarding patient care. * SYMPTOMS: Respiratory distress/ dyspnea - patient remains intubated on mechanical ventilation. Patient failing CPAP trials, gets tachypneic. Sputum culture positive for Escherichia coli, ESBL positive, pseudomonas aeruginosa, methicillin-resistant staph aureus. ID following. Debility - admitted from a half-way with significant debility, she has been on bed rest, mechanically ventilated. If goals remain aggressive care patient would benefit from physical therapy. * Palliative care will continue to follow the patient during hospital course as condition evolves, to assist patient/decision-maker with understanding of their medical conditions, weighing benefits/burdens of treatment options, for clarification of goals of treatment. Additionally will assist with any symptoms of palliative concern. . (Mirlande Pak) Attestation To help prompt me to consider important information that might be impacting today's encounter and assessment, information from prior notes written by myself or my colleagues may have been "brought forward" into today's note. My signature on this note, however, is an attestation that I personally performed the exam, history, and/or decision-making noted today, and, unless otherwise indicated, the interactions with patient, family, and staff as well as the review of records all occurred today. I also attest that the listed assessment and stated plan reflect my best clinical judgment today based on the combination of historical information, prior notes, and today's exam/ interactions. When time spent is documented, it refers only to time spent today by the signer, or if indicated, combined time spent today by collaborating physician/nurse practitioner. (Mirlande Pak) Collaborating MD Comments Chart reviewed. Case discussed with palliative care BAIL AGENT. Above BAIL AGENT note reviewed and I concur. . (Jhonatan Stephenson MD) Mirlande Pak Nov 13, 2016 12:35 Jhonatan Stephenson MD Nov 18, 2016 15:49
--- NOTE | 2016-11-13 16:18 | HHI.PR ---
Review/Management Diagnosis/Plan: (1) Acute encephalopathy ICD Codes: G93.40 - Encephalopathy, unspecified Status: Acute Plan: likely metabolic; in sepsis at present moderate atrophy and ventriculomegaly on mri scan. wonder if she has underlying dementia? mri brain/cspine- no cord lesion; brain unchanged recs found to have lung cancer; palliative care following metabolic encephalopathy 2/2 pneumonia with + cx's + SCC more alert but not following will follow peripherally (2) Squamous cell carcinoma ICD Codes: C44.92 - Squamous cell carcinoma of skin, unspecified Status: Acute Plan: seen by onc (3) Acute respiratory failure requiring reintubation ICD Codes: J96.00 - Acute respiratory failure, unspecified whether with hypoxia or hypercapnia Status: Acute Plan: ccm intubated (4) Pneumonia ICD Codes: J18.9 - Pneumonia, unspecified organism Status: Acute Plan: intubated, iv abx Subjective Subjective Comments No acute events reported Active Medications Current Medications Medications (Trade) Dose Ordered Sig/Nathan Route Start Time Stop Time Status Last Admin (NS Flush) 2 ml UNSCH PRN IV FLUSH 10/28/16 18:30 10/30/16 09:51 (NS Flush) 2 ml BID IV FLUSH 10/28/16 21:00 11/12/16 20:20 (Tylenol) 650 mg Q6H PRN PO 10/28/16 18:30 11/12/16 20:30 (Peridex 0.12% Liq) 15 ml BID@08,20 MT 10/28/16 20:00 11/13/16 08:00 Miscellaneous Information 1 Q361D XX 10/28/16 18:30 10/28/16 21:00 (Chlorhexidine 2% Cloth) Taper DAILY@04 TOP 10/29/16 04:00 10/25/17 03:59 11/13/16 04:00 (Chlorhexidine 2% Cloth) 3 pack UNSCH PRN TOP 10/28/16 18:30 Propofol 100 ml @ 2.4 mls/hr TITRATE PRN IV 10/28/16 18:30 11/05/16 06:10 Aztreonam 2000 mg/ Sodium Chloride 100 ml @ 200 mls/hr Q8H IV 10/29/16 00:00 11/13/16 15:10 (Heparin Inj) 5,000 units Q8H SQ 10/29/16 08:00 11/13/16 15:11 Potassium Chloride 100 ml @ 50 mls/hr Q2H PRN IV 10/29/16 08:00 Potassium Chloride 100 ml @ 50 mls/hr Q2H PRN IV 10/29/16 08:00 (K-Lyte Cl Eff) 50 meq UNSCH PRN PO 10/29/16 08:00 11/06/16 15:43 Potassium Chloride 100 ml @ 25 mls/hr UNSCH PRN IV 10/29/16 08:00 Potassium Chloride 100 ml @ 50 mls/hr Q2H PRN IV 10/29/16 08:00 Magnesium Sulfate 4 gm/Sodium Chloride 100 ml @ 50 mls/hr UNSCH PRN IV 10/29/16 08:00 (Mag-Ox) 800 mg UNSCH PRN PO 10/29/16 08:00 Magnesium Sulfate 2 gm/Sodium Chloride 100 ml @ 50 mls/hr UNSCH PRN IV 10/29/16 08:00 (K-Phos) 2,000 mg Q4H PRN PO 10/29/16 08:00 Sodium Phosphate 30 mmol/Sodium Chloride 250 ml @ 42 mls/hr UNSCH PRN IV 10/29/16 08:00 10/29/16 10:21 (K-Phos) 2,000 mg UNSCH PRN PO/TUBE 10/29/16 08:00 Potassium Phosphate 30 mmol/ Sodium Chloride 260 ml @ 42 mls/hr UNSCH PRN IV 10/29/16 08:00 (Apresoline Inj) 10 mg Q6H PRN IV PUSH 10/30/16 15:00 11/04/16 08:38 (Tears Naturale Opth Soln) 1 drop Q8HR EACH EYE 11/01/16 22:00 11/13/16 05:11 (Bactroban Nasal 2% Oint) Taper BID EACH NARE 11/01/16 21:00 10/28/17 20:59 11/13/16 08:32 (Albuterol Neb) 2.5 mg Q2HR NEB PRN NEB 11/01/16 15:45 11/13/16 15:38 (Pill Splitter) 1 ea UNSCH PRN OTHER 11/02/16 13:45 (Lactinex) 1 tab TID PO 11/03/16 18:00 11/13/16 13:39 (Diflucan) 100 mg DAILY PO 11/03/16 14:00 11/13/16 08:31 (Levemir Inj) 26 units BID@0800,2000 SQ 11/04/16 20:00 Future Hold 11/09/16 20:35 (Trandate Inj) 10 mg Q1HR PRN IV PUSH 11/04/16 10:45 11/12/16 20:32 (Nitroglycerin 2% Oint) 2 inch Q6HR PRN TOPICAL 11/04/16 10:45 (Free Water) VOLUME: 200 ML Q6HR NG 11/04/16 18:00 11/13/16 12:00 (Norvasc) 10 mg DAILY PO 11/05/16 09:00 11/13/16 09:00 (Lopressor) 50 mg Q8HR PO 11/05/16 14:00 11/13/16 13:39 (Pepcid) 20 mg BID PO 11/06/16 21:00 11/13/16 08:31 Levetriacetam 500 mg/Sodium Chloride 105 ml @ 420 mls/hr Q12H IV 11/06/16 15:00 11/13/16 15:10 (Sodium Chloride 3% Neb) 2 ml Q6HR NEB NEB 11/07/16 16:00 11/14/16 15:59 11/13/16 15:38 (fentaNYL INJ) 50 mcg Q1HR PRN IV 11/07/16 14:00 11/09/16 22:25 Meropenem 1000 mg/ Sodium Chloride 100 ml @ 200 mls/hr Q8H IV 11/08/16 15:00 11/13/16 15:00 (Catapres) 0.2 mg Q8HR PO 11/09/16 14:00 11/13/16 13:39 (D50w (Vial) Inj) 50 ml UNSCH PRN IV PUSH 11/10/16 08:00 (Glucagon Inj) 1 mg UNSCH PRN OTHER 11/10/16 08:00 (NovoLIN R SUPPLEMENTAL SCALE) 1 Q6H SQ 11/10/16 14:00 11/13/16 13:41 Dexmedetomidine HCl 200 mcg/ Sodium Chloride 52 ml @ 4.5 mls/hr TITRATE PRN IV 11/10/16 11:30 11/12/16 08:57 (Levemir Inj) 14 units Q12HR SQ 11/13/16 10:00 Allergies Allergies Coded Allergies propoxyphene (Unverified Allergy, Severe, 09/25/16) amoxicillin (Verified Allergy, Unknown, 10/28/16) Review of Systems All other ROS: Unable to obtain Exam I&O / VS 11/13/16 11/13/16 11/14/16 15:00 23:00 07:00 Intake Total 100 ml Balance 100 ml Intake IV Total 100 ml Vital Signs Date Time Temp Pulse Resp B/P (MAP) Pulse Ox O2 Delivery O2 Flow Rate FiO2 11/13/16 14:00 106 11/13/16 12:55 100 35 11/13/16 12:00 100.7 107 27 159/71 (100) 100 11/13/16 12:00 50 11/13/16 12:00 106 11/13/16 10:45 100 50 11/13/16 10:00 107 11/13/16 08:14 100 50 11/13/16 08:00 99.0 91 31 149/64 (92) 100 11/13/16 08:00 107 11/13/16 08:00 50 11/13/16 06:00 96 11/13/16 04:00 113 11/13/16 04:00 50 11/13/16 04:00 113 19 161/73 (102) 100 11/13/16 04:00 99.4 113 19 161/73 (102) 100 11/13/16 03:36 91 50 11/13/16 02:00 104 11/13/16 00:00 124 11/13/16 00:00 99.5 124 19 156/72 (100) 100 11/13/16 00:00 50 11/12/16 23:37 100 50 11/12/16 22:41 18 11/12/16 22:00 119 11/12/16 20:14 100 50 11/12/16 20:00 50 11/12/16 20:00 100.5 123 19 171/77 (108) 99 11/12/16 20:00 123 11/12/16 18:00 120 11/12/16 17:00 88 50 11/12/16 17:00 116 Exam Comments intubated, short, obese, alert, not following, will grimace, questionable blink to threat, eomi, ou 3-2mm, no ptosis, better flexion of ue and minimal withdrawal of le Objective Micro and Labs Laboratory Tests Test 11/13/16 03:42 White Blood Count 13.9 Red Blood Count 3.47 Hemoglobin 10.0 Hematocrit 30.3 Mean Corpuscular Volume 87.3 Mean Corpuscular Hemoglobin 28.9 Mean Corpuscular Hemoglobin Concent 33.1 Red Cell Distribution Width 14.0 Platelet Count 565 Mean Platelet Volume 8.1 Neutrophils (%) (Auto) 71.6 Lymphocytes (%) (Auto) 17.8 Monocytes (%) (Auto) 7.5 Eosinophils (%) (Auto) 1.7 Basophils (%) (Auto) 1.4 Neutrophils # (Auto) 10.0 Lymphocytes # (Auto) 2.5 Monocytes # (Auto) 1.0 Eosinophils # (Auto) 0.2 Basophils # (Auto) 0.2 CBC Comment DIFF FINAL Differential Comment Blood Urea Nitrogen 37 Creatinine 0.92 Random Glucose 275 Calcium Level 8.5 Sodium Level 145 Potassium Level 3.8 Chloride Level 111 Carbon Dioxide Level 25.5 Anion Gap 9 Estimat Glomerular Filtration Rate 60 Date/Time Source Procedure Growth Status 11/09/16 09:58 Blood Peripheral Aerobic Blood Culture - Preliminary NO GROWTH IN 4 DAYS Resulted 11/09/16 09:58 Blood Peripheral Anaerobic Blood Culture - Preliminary NO GROWTH IN 4 DAYS Resulted 11/09/16 09:30 Sputum Endotracheal Gram Stain - Final Complete 11/09/16 09:30 Sputum Culture - Final Pseudomonas Aeruginosa Staphylococcus Aureus Complete 11/09/16 09:30 Urine Catheterized Urine Urine Culture - Final NO GROWTH IN 48 HOURS. Complete 10/28/16 17:00 Other - Final Complete Jarett Sampson MD Nov 13, 2016 16:18
--- NOTE | 2016-11-13 19:15 | HHI.PR ---
Subjective Remarks 70 YOWF with VDRF,Pneumonia, ? Aspiration Off sedation Bronchial wash Sq cell ca Opens eyes, does't follow commands Did't tolerate CPAP Mod amount of trach secretions. Objective Vital Signs Vital Signs Date Time Temp Pulse Resp B/P (MAP) Pulse Ox O2 Delivery O2 Flow Rate FiO2 11/13/16 18:00 106 11/13/16 18:00 100.4 103 19 160/72 (101) 98 11/13/16 16:59 98 50 11/13/16 16:00 106 11/13/16 16:00 50 11/13/16 14:00 106 11/13/16 12:55 100 35 11/13/16 12:00 100.7 107 27 159/71 (100) 100 11/13/16 12:00 50 11/13/16 12:00 106 11/13/16 10:45 100 50 11/13/16 10:00 107 11/13/16 08:14 100 50 11/13/16 08:00 99.0 91 31 149/64 (92) 100 11/13/16 08:00 107 11/13/16 08:00 50 11/13/16 06:00 96 11/13/16 04:00 113 11/13/16 04:00 50 11/13/16 04:00 113 19 161/73 (102) 100 11/13/16 04:00 99.4 113 19 161/73 (102) 100 11/13/16 03:36 91 50 11/13/16 02:00 104 11/13/16 00:00 124 11/13/16 00:00 99.5 124 19 156/72 (100) 100 11/13/16 00:00 50 11/12/16 23:37 100 50 11/12/16 22:41 18 11/12/16 22:00 119 11/12/16 20:14 100 50 11/12/16 20:00 50 11/12/16 20:00 100.5 123 19 171/77 (108) 99 11/12/16 20:00 123 I/O 11/12/16 11/12/16 11/12/16 11/13/16 11/13/16 11/13/16 07:00 15:00 23:00 07:00 15:00 23:00 Intake Total 1305 ml 1345 ml 1140 ml 100 ml Output Total 800 ml 1450 ml 1500 ml 1400 ml Balance 505 ml -105 ml -360 ml 100 ml -1400 ml Intake IV Total 405 ml 300 ml 300 ml 100 ml Tube Feeding 400 ml 445 ml 440 ml Tube Irrigant 500 ml Other 600 ml 400 ml Output Urine Total 800 ml 1450 ml 1500 ml 1400 ml # Bowel Movements 2 2 1 2 Result Diagram: 11/13/1634111/13/16341 Objective Remarks GENERAL: MBMN WF, intubated, sedated SKIN: Warm and dry. HEAD: Normocephalic. EYES: No scleral icterus. No injection or drainage. NECK: Supple, trachea midline. No JVD or lymphadenopathy. CARDIOVASCULAR: Regular rate and rhythm without murmurs, gallops, or rubs. RESPIRATORY: Breath sounds equal bilaterally. No accessory muscle use. GASTROINTESTINAL: Abdomen soft, non-tender, nondistended. MUSCULOSKELETAL: No cyanosis, or edema. BACK: Nontender without obvious deformity. No CVA tenderness. A/P Assessment and Plan VDRF Pneumonia Aspiration DM Dementia Ventriculomegaly Squamous cell ca PLAN: Vent Support -AC 14, Fi02 35% Cont Abx Aerosol nebs SQ Heparin Code status DNR Prognosis poor Trach suction prn Luis Madison MD Nov 13, 2016 19:15
[2016-11-14] VITALS (23 sets, daily range): BP systolic 138–182; BP diastolic 64–77; PULSE 83–110; RESP 10–34; TEMP 98.4–100.8; O2SAT 98–100
[2016-11-14] MEDS: levETIRAcetam INJ 500 MG in SODIUM CHLORIDE 0.9% INJ 100 ML IV SCH ×2 (01:36→15:30)
[2016-11-14] MEDS: INSULIN NovoLIN REGULAR SUPPLEMENTAL SCALE SQ SCH ×4 (01:37→20:00)
[2016-11-14] MEDS: CHLORHEXIDINE GLUCONATE 2 % 1 PACK (2 CLOTHS) TOP SCH (01:37)
[2016-11-14] MEDS: HEPARIN SODIUM - SQ 10,000 UNITS/ML VIAL SQ SCH ×3 (01:40→15:30)
[2016-11-14] MEDS: AZTREONAM INJ 2,000 MG in SODIUM CHLORIDE 0.9% INJ 100 ML IV SCH ×3 (01:40→16:00)
[2016-11-14] MEDS: RESP: SODIUM CHLORIDE 3% 4 ML NEB NEB SCH ×2 (04:09→07:52)
[2016-11-14] MEDS: [UNRECOGNIZED DRUG - REMARK] NG SCH ×4 (06:00→18:00)
[2016-11-14 06:09] LABS: AUTOMATED NEUTROPHIL # 8.5 TH/MM3 (1.8-7.7); BASOPHIL # 0.1 TH/MM3 (0-0.2); EOSINOPHIL # 0.4 TH/MM3 (0-0.4); EOSINOPHIL % 3.5 % (0.0-4.0); HEMATOCRIT 28.6 % (35.0-46.0); HEMO FLAGS DIFF FINAL; LYMPH % 18.5 % (9.0-44.0); LYMPHOCYTE # 2.3 TH/MM3 (1.0-4.8); MEAN CELL VOLUME 88.5 FL (80.0-100.0); MEAN CORPUSCULAR HEMOGLOBIN 28.6 PG (27.0-34.0); MEAN CORPUSCULAR HGB CONC 32.3 % (32.0-36.0); MONO % 8.2 % (0.0-8.0); NEUT % 68.8 % (16.0-70.0); PLATELET COUNT 498 TH/MM3 (150-450); RED BLOOD COUNT 3.23 MIL/MM3 (4.00-5.30); RED CELL DISTRIBUTION WIDTH 14.6 % (11.6-17.2); WHITE BLOOD COUNT 12.4 TH/MM3 (4.0-11.0)
[2016-11-14] MEDS: METOPROLOL TARTRATE 50 MG TAB PO SCH ×3 (06:28→22:08)
[2016-11-14] MEDS: cloNIDine HCL 0.1 MG TAB PO SCH ×3 (06:28→22:08)
[2016-11-14] MEDS: ARTIFICIAL TEARS OPTH SOLN 15 ML BTL EACH EYE SCH ×3 (06:28→22:08)
[2016-11-14] MEDS: RESP: ALBUTEROL 2.5 MG/3 ML NEB (PRN) NEB (07:52)
--- NOTE | 2016-11-14 08:06 | HHI.CCPN ---
Subjective Remarks/Hospital Course HPI 70-year-old skilled nursing resident with a medical history significant for dementia, diabetes mellitus, hyperlipidemia, reactive airway disease who was found to have altered mental status at the skilled nursing for which EMS was called. Patient was noted to have O2 sats in the 70s. She was very apneic with her head slumped down. Paramedics report of having to hold her head up to have her breathe with the nebulizer treatment in place. Patient was given Solu- Medrol 125 mg IV and 4 nebulizer treatments prior to arrival in the ER for documentation. On arrival in the ER patient was extremely lethargic however was reportedly able to answer some questions. Patient was felt not to be able to protect her airway as well as very hypoxic and hence was intubated by ER physician and placed on mechanical ventilation. Chest x-ray in the ER showed bilateral infiltrates and possible cavitary lesion. She was accepted for admission by critical care medicine service. CT chest was ordered by ER physician. When I evaluated the patient in the ER she was sedated with propofol , orally intubated on mechanical ventilation. History was obtained by reviewing records and discussion with ER physician. 10/29 Patient is sedated with Diprivan and intubated. Afebrile. 10/30 Patient remains sedated and intubated. T:99.7 last night. 10/31: Intubated sedated. CT reviewed and discussed with Dr. Madison. Will consider Bronch. Also check thyroid US and possible biopsy. Check thyroid studies. Also consult palliative care as patient has underlying dementia with NPH and possible malignancy. 11/01: Tmax 100.3. Plan for bronchoscopy at 3:00 today. Noted thyroid masses chronic/since 2011. Tolerating tube feeding. Positive BM. 11/02: Tmax 100.1. Status post bronchoscopy yesterday with removal of mucous plugging. Tolerating tube feeds. Positive BM. Weaning propofol sedation today. 11/03: Tmax 100.6. Noted elevated leukocytosis. Weaning sedation. Positive BM. Tolerate tube feeding. 11/04: Afebrile. UA negative. C. difficile pending. 4 bowel movement overnight. Tolerating tube feeding. No new issues. 11/05 Patient is sedated with Diprivan and intubated. T:100.7. Given Labetalol 10mg IV x3 for hypertension overnight. 11/06 No events overnight. Off sedation. T: 101.5 last night. Subjective 11/07: Tmax 102. Currently 100.6. Continues off sedation. Eyes are open to voice but not falling commands. Noted MRI brain unchanged. MRI C-spine revealed no cord compression or cord abnormality's. Severe C5/6 right foraminal narrowing 11/08: Remains intubated sedated, intermittently opens eyes. Per palliative care , throat cutter requesting letter of certification from treatment team. Prior to making a decision to withdraw from life support, the throat cutter is requesting a letter from the covering physicians certifying that she is hospice appropriate and palliative rather than aggressive treatment is appropriate. Dr. Madison thinks hospice is appropriate but also recommends Oncology input. I have consulted medical oncology 11/09 Patient remains intubated, on no sedation, Tmax 103.1 gets tachypneic with CPAP trials 11/10 Patient is intubated had T:100.3 last night. Doesn't follow commands. 10 No events overnight. Placed on Precedex drip yesterday to facilitate with weaning trials. T: 99.7. Awake looking around with her eyes but does not following commands. 11/12 Patient remains intubated. On Precedex drip. Did not tolerate CPAP trials yesterday. 11/13 No events overnight. Intubated doesn't tolerate CPAP trials. T:100.5 last night. 11/14 Patient remains intubated. Off sedation. T;100.1 Objective Vital Signs Date Time Temp Pulse Resp B/P (MAP) Pulse Ox O2 Delivery O2 Flow Rate FiO2 11/14/16 07:52 100 40 11/14/16 06:00 101 11/14/16 04:00 98.4 10 157/71 (99) Intake and Output 11/14/16 11/14/16 11/15/16 08:00 16:00 00:00 Intake Total 1732 ml Output Total 725 ml Balance 1007 ml Result Diagram: 11/14/16 0458 11/14/16 0458 Other Results Laboratory Tests Test 11/14/16 04:58 White Blood Count 12.4 TH/MM3 Red Blood Count 3.23 MIL/MM3 Hemoglobin 9.2 GM/DL Hematocrit 28.6 % Mean Corpuscular Volume 88.5 FL Mean Corpuscular Hemoglobin 28.6 PG Mean Corpuscular Hemoglobin Concent 32.3 % Red Cell Distribution Width 14.6 % Platelet Count 498 TH/MM3 Mean Platelet Volume 8.2 FL Neutrophils (%) (Auto) 68.8 % Lymphocytes (%) (Auto) 18.5 % Monocytes (%) (Auto) 8.2 % Eosinophils (%) (Auto) 3.5 % Basophils (%) (Auto) 1.0 % Neutrophils # (Auto) 8.5 TH/MM3 Lymphocytes # (Auto) 2.3 TH/MM3 Monocytes # (Auto) 1.0 TH/MM3 Eosinophils # (Auto) 0.4 TH/MM3 Basophils # (Auto) 0.1 TH/MM3 CBC Comment DIFF FINAL Differential Comment Blood Urea Nitrogen 35 MG/DL Creatinine 0.86 MG/DL Random Glucose 192 MG/DL Calcium Level 8.7 MG/DL Sodium Level 146 MEQ/L Potassium Level 4.0 MEQ/L Chloride Level 112 MEQ/L Carbon Dioxide Level 25.0 MEQ/L Anion Gap 9 MEQ/L Estimat Glomerular Filtration Rate 65 ML/MIN Imaging Last Impressions Chest X-Ray 11/12/16 0600 Signed Impressions: Service Date/Time: Saturday, November 12, 2016 04:11 - CONCLUSION: Right greater than left airspace disease modestly worse. Keshav Burks MD Cervical Spine MRI 11/06/16 0000 Signed Impressions: Service Date/Time: Sunday, November 06, 2016 21:36 - CONCLUSION: 1. Multilevel degenerative changes of the cervical spine as above, especially C5/ C6 and C6/C7. 2. Mild to moderate spinal stenosis and severe right foraminal stenosis at C5/C6. 3. Mild spinal stenosis and moderate right foraminal stenosis at C6/C7. 4. No cord compression or cord signal abnormality. 5. No fracture or subluxation. 6. Large nodule of the left lobe of the thyroid gland. There are also upper limits of normal bilateral cervical lymph nodes. Keshav Burks MD Brain MRI 11/06/16 0000 Signed Impressions: Service Date/Time: Sunday, November 06, 2016 21:36 - CONCLUSION: 1. No change or acute abnormality demonstrated. 2. Atrophy, ventriculomegaly and chronic white matter changes are again noted. Kesahv Burks MD Thyroid Ultrasound 10/31/16 0000 Signed Impressions: Service Date/Time: Monday, October 31, 2016 11:47 - CONCLUSION: Large complex mass right lobe of the thyroid. Minimally increased in size since Jacoby Torre MD FACR Abdomen X-Ray 10/29/16 0000 Signed Impressions: Service Date/Time: Saturday, October 29, 2016 15:32 - CONCLUSION: Negative for radiopaque foreign bodies. Jacoby Torre MD FACR Chest CT 10/28/16 1814 Signed Impressions: Service Date/Time: Friday, October 28, 2016 18:28 - CONCLUSION: 1. Abnormality on chest radiograph corresponds to a 3.4 x 3.5 cm central right hilar mass/adenopathy with associated postobstructive airspace consolidation in the inferior right upper lobe. There are at least 2 additional pulmonary nodules measuring 13 x 8 mm in the anterior right middle lobe and 8 x 8 mm in the anterior right upper lobe near the apex. 2. 3.9 x 4.3 cm heterogeneous nodule in the right thyroid gland. No significant regional cervical adenopathy. 3. Patchy bilateral lower lobe air space consolidation and diffuse ground glass opacities. Differential considerations include ARDS versus infection versus aspiration. 1. Tyler Selby MD Head CT 10/28/16 0000 Signed Impressions: Service Date/Time: Friday, October 28, 2016 20:44 - CONCLUSION: 1. No bleed or evidence of acute infarction. 2. Atrophy and chronic white matter changes. 3. Moderate ventriculomegaly, beyond that expected for the degree of atrophy. Normal pressure hydrocephalus would be in the differential. Keshav Burks MD Objective Remarks GENERAL: 71-year-old female, critically ill currently orotracheally intubated SKIN: Warm and dry. HEAD: Atraumatic. Normocephalic. EYES: Pupils equal and round about 3 mm bilaterally and reactive. No scleral icterus. No injection or drainage. ENT: No nasal bleeding or discharge. Orotracheally intubated NECK: Trachea midline. No JVD. Right-sided thyromegaly/palpable mass noted CARDIOVASCULAR: Tachycardic, RR. S1, S2 no S4. Without murmur RESPIRATORY: Diminished breath sounds right upper lobe. Coarse crackles appreciated bilaterally. Also bilateral course rhonchi GASTROINTESTINAL: Abdomen soft, non-tender, nondistended. Hepatic and splenic margins not palpable. MUSCULOSKELETAL: Extremities bilateral trace nonpitting lower extremity edema. No obvious deformities. NEUROLOGICAL: Positive gag. Positive corneal reflex. Not following commands upper or lower extremity. Upward toes. A/P Assessment and Plan Plan: Neuro/Psych: Depression/anxiety Toxic metabolic encephalopathy Ventriculomegaly History of dementia Off sedation, monitor neuro status. EEG 11/06 revealed triphasic sway/diffuse sharp waves likely moderate encephalopathy cannot rule out proclivity of seizure Neuro eval for encephalopathy with Dr. Sampson noted CT brain: Moderate ventriculomegaly, beyond that expected for the degree of atrophy. MRI confirms. Neurosurgery is following- Dr. Hernandez No acute intervention Repeat MRI brain 11/06 stable for ventriculomegaly. No other acute findings Currently holding home medications clonazepam 0.5 mg twice a day and quetiapine 25 mg at night On levetiracetam 500 mg IV twice a day per neurology's EEG above As needed fentanyl 50 every 8 hours when necessary pain CV: Hypertension Dyslipidemia On Lopressor 50mg Q8, amlodipine 10mg daily, Clonidine 0.2mg Q8, -Monitor HR and BP keep MAP>65mmHg Home medication for hypertension include amlodipine 10 mg by mouth daily and carvedilol 25 mg by mouth twice a day As needed hydralazine and labetalol and Nitropaste for hypertension Currently holding atorvastatin 40 mg by mouth daily for dyslipidemia. Pulm Acute hypoxemic respiratory failure possibly secondary to post obstructive pneumonia Squamous [facility] 12/500/0//. Ventilator bundle Albuterol/ipratropium aerosols every 6 hours with albuterol aerosols every 2 hours. Dyspnea. At 3% saline aerosols every 6 hours [address] chest reviewed revealed 3.4 x 2.5 right hilar mass with post discharge pneumonia in the right upper lobe. Right middle lobe mass. Pulm is following- Dr. Madison, s/p bronch with BAL 11/01. Cytology positive ( squamous cell carcinoma) Renal/: Hypernatremia - resolved Monitor renal function, I/O's, electrolytes replacement per protocol. On free water 200 cc every 6 hours tube feeds GI/liver: Mild protein calorie malnutrition Continue with Glucerna 1.5 at 40 cc an hour On famotidine 20mg BID for GI prophylaxis ID: Escherichia coli UTI Postobstructive pneumonia Continue with abx per ID (Aztreonam, Merrem, Diflucan) monitor for signs of infections ( Fever, WBC). Sputum cx 11/09: Pseudomonas, Staph Aureus Follow up on cultures and bronchoscopy 11/01- Yeast species BC 11/04: NGTD Blood cultures 2 - 11/06 - NGTD Sputum 11/06 ESBL E Coli, PSAE, Staph. Strep pneumonia urinary Ag negative. ID is following- Dr. 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 Patient has hilar mass with pulmonary nodules, also thyroid mass. Seen by Oncology-Dr. Xavier patient is not candidate for surgery, chemo radiation give poor performance status, hospice was recommended. Palliative care is following Endocrine: Diabetes mellitus Right thyroid mass 6.8 cm/chronic Levemir 14 units Q12 On SSI medium scale Novulin R for glycemic control. Patient is on insulin glargine at home Prophylaxis: Famotidine 20 mg twice a day via OG tube, SCDs/subcutaneous heparin Level 3 Remains critically ill now with ESBL E Coli and PSAE pneumonia. throat cutter requiring certification from treatment team prior to proceeding with withdrawal of life support/Hospice Letter was signed and submitted. Santana Browning MD Nov 14, 2016 08:06
[2016-11-14] MEDS: MEROPENEM INJ 1,000 MG in SODIUM CHLORIDE 0.9% INJ 100 ML IV SCH ×3 (08:21→22:08)
[2016-11-14] MEDS: FAMOTIDINE 20 MG TAB PO SCH ×2 (08:22→22:08)
[2016-11-14] MEDS: FLUCONAZOLE 100 MG TAB PO SCH (08:22)
[2016-11-14] MEDS: INSULIN DETEMIR 100 UNITS/ML VIAL SQ SCH ×2 (08:22→21:00)
[2016-11-14] MEDS: MUPIROCIN 2% OINT 1 APPLIC/GM SYR EACH NARE SCH ×2 (08:23→22:08)
[2016-11-14] MEDS: CHLORHEXIDINE 0.12% (ORAL KIT) 15 ML CUP MT SCH ×2 (08:25→22:05)
[2016-11-14] MEDS: LACTOBACILLUS ACIDOPHILUS TAB PO SCH ×3 (08:44→18:00)
[2016-11-14] MEDS: SODIUM CHLORIDE 0.9% FLUSH 10 ML FLUSH IV FLUSH SCH ×2 (08:44→21:00)
--- NOTE | 2016-11-14 16:28 | HHI.PR ---
Subjective Remarks 70 YOWF with VDRF,Pneumonia, ? Aspiration Off sedation Bronchial wash Sq cell ca Did't tolerate CPAP Mod amount of trach secretions. Objective Vital Signs Vital Signs Date Time Temp Pulse Resp B/P (MAP) Pulse Ox O2 Delivery O2 Flow Rate FiO2 11/14/16 16:00 40 11/14/16 16:00 91 11/14/16 14:00 91 11/14/16 14:00 97 28 100 11/14/16 13:00 110 23 182/77 (112) 100 11/14/16 12:40 100 40 11/14/16 12:00 91 11/14/16 12:00 98.8 103 24 159/72 (101) 100 11/14/16 12:00 40 11/14/16 11:00 103 23 155/71 (99) 100 11/14/16 10:00 91 11/14/16 10:00 103 25 181/77 (111) 100 11/14/16 09:00 100 23 155/69 (97) 100 11/14/16 08:00 50 11/14/16 08:00 91 11/14/16 08:00 98.5 91 18 170/75 (106) 100 11/14/16 07:52 100 40 11/14/16 07:00 95 18 148/67 (94) 100 11/14/16 06:00 101 11/14/16 04:44 98 40 11/14/16 04:00 50 11/14/16 04:00 106 11/14/16 04:00 98.4 106 10 157/71 (99) 100 11/14/16 02:00 96 11/14/16 01:19 100 50 11/14/16 00:00 91 11/14/16 00:00 100.1 91 32 160/68 (98) 100 11/14/16 00:00 50 11/13/16 22:40 100 50 11/13/16 22:00 92 11/13/16 20:30 100 50 11/13/16 20:00 98.0 111 24 169/74 (105) 98 11/13/16 20:00 50 11/13/16 20:00 111 11/13/16 18:00 106 11/13/16 18:00 100.4 103 19 160/72 (101) 98 11/13/16 16:59 98 50 I/O 11/13/16 11/13/16 11/13/16 11/14/16 11/14/16 11/14/16 07:00 15:00 23:00 07:00 15:00 23:00 Intake Total 1140 ml 100 ml 205 ml 1732 ml 200 ml Output Total 1500 ml 1400 ml 725 ml Balance -360 ml 100 ml -1195 ml 1007 ml 200 ml Intake IV Total 300 ml 100 ml 205 ml 400 ml Tube Feeding 440 ml 932 ml Other 400 ml 400 ml 200 ml Output Urine Total 1500 ml 1400 ml 725 ml # Bowel Movements 1 2 2 Result Diagram: 11/14/16 0458 11/14/16 0458 Objective Remarks GENERAL: MBMN WF, intubated, sedated SKIN: Warm and dry. HEAD: Normocephalic. EYES: No scleral icterus. No injection or drainage. NECK: Supple, trachea midline. No JVD or lymphadenopathy. CARDIOVASCULAR: Regular rate and rhythm without murmurs, gallops, or rubs. RESPIRATORY: Breath sounds equal bilaterally. No accessory muscle use. GASTROINTESTINAL: Abdomen soft, non-tender, nondistended. MUSCULOSKELETAL: No cyanosis, or edema. BACK: Nontender without obvious deformity. No CVA tenderness. A/P Assessment and Plan VDRF Pneumonia Aspiration DM Dementia Ventriculomegaly Squamous cell ca PLAN: Vent Support -AC 14, Fi02 35% Cont Abx Aerosol nebs SQ Heparin Code status DNR Prognosis poor Luis Madison MD Nov 14, 2016 16:28
[2016-11-15] VITALS (27 sets, daily range): BP systolic 134–169; BP diastolic 63–80; PULSE 70–109; RESP 16–37; TEMP 99–99.8; O2SAT 96–100
[2016-11-15] MEDS: AZTREONAM INJ 2,000 MG in SODIUM CHLORIDE 0.9% INJ 100 ML IV SCH ×4 (00:36→23:30)
[2016-11-15] MEDS: HEPARIN SODIUM - SQ 10,000 UNITS/ML VIAL SQ SCH ×4 (00:37→23:31)
[2016-11-15] MEDS: [UNRECOGNIZED DRUG - REMARK] NG SCH ×2 (00:37→06:20)
[2016-11-15] MEDS: INSULIN NovoLIN REGULAR SUPPLEMENTAL SCALE SQ SCH ×4 (02:00→20:00)
[2016-11-15] MEDS: CHLORHEXIDINE GLUCONATE 2 % 1 PACK (2 CLOTHS) TOP SCH (03:27)
[2016-11-15] MEDS: levETIRAcetam INJ 500 MG in SODIUM CHLORIDE 0.9% INJ 100 ML IV SCH ×2 (03:27→14:00)
[2016-11-15] MEDS: ARTIFICIAL TEARS OPTH SOLN 15 ML BTL EACH EYE SCH ×3 (06:20→20:28)
[2016-11-15] MEDS: MEROPENEM INJ 1,000 MG in SODIUM CHLORIDE 0.9% INJ 100 ML IV SCH ×3 (06:20→23:30)
[2016-11-15] MEDS: METOPROLOL TARTRATE 50 MG TAB PO SCH ×3 (06:20→20:28)
[2016-11-15] MEDS: cloNIDine HCL 0.1 MG TAB PO SCH (06:20)
[2016-11-15 07:05] LABS: AUTOMATED NEUTROPHIL # 6.1 TH/MM3 (1.8-7.7); BASOPHIL # 0.1 TH/MM3 (0-0.2); EOSINOPHIL # 0.4 TH/MM3 (0-0.4); EOSINOPHIL % 4.2 % (0.0-4.0); HEMATOCRIT 28.3 % (35.0-46.0); HEMO FLAGS DIFF FINAL; LYMPH % 25.5 % (9.0-44.0); LYMPHOCYTE # 2.6 TH/MM3 (1.0-4.8); MEAN CELL VOLUME 89.2 FL (80.0-100.0); MEAN CORPUSCULAR HEMOGLOBIN 29.3 PG (27.0-34.0); MEAN CORPUSCULAR HGB CONC 32.9 % (32.0-36.0); MONO % 8.5 % (0.0-8.0); NEUT % 60.8 % (16.0-70.0); PLATELET COUNT 455 TH/MM3 (150-450); RED BLOOD COUNT 3.17 MIL/MM3 (4.00-5.30); RED CELL DISTRIBUTION WIDTH 14.3 % (11.6-17.2); WHITE BLOOD COUNT 10.1 TH/MM3 (4.0-11.0)
[2016-11-15 07:11] LABS: BICARBONATE 27.1 MEQ/L (21.0-32.0); POTASSIUM 4.3 MEQ/L (3.5-5.1)
[2016-11-15] MEDS: CHLORHEXIDINE 0.12% (ORAL KIT) 15 ML CUP MT SCH ×2 (08:15→20:00)
[2016-11-15] MEDS: SODIUM CHLORIDE 0.9% FLUSH 10 ML FLUSH IV FLUSH SCH ×2 (08:17→20:28)
[2016-11-15] MEDS: MUPIROCIN 2% OINT 1 APPLIC/GM SYR EACH NARE SCH ×2 (08:17→20:28)
[2016-11-15] MEDS: FLUCONAZOLE 100 MG TAB PO SCH (08:17)
[2016-11-15] MEDS: INSULIN DETEMIR 100 UNITS/ML VIAL SQ SCH ×2 (08:18→20:28)
[2016-11-15] MEDS: FAMOTIDINE 20 MG TAB PO SCH ×2 (08:18→20:28)
--- NOTE | 2016-11-15 08:20 | HHI.CCPN ---
Subjective Remarks/Hospital Course HPI 70-year-old shelter resident with a medical history significant for dementia, diabetes mellitus, hyperlipidemia, reactive airway disease who was found to have altered mental status at the shelter for which EMS was called. Patient was noted to have O2 sats in the 70s. She was very apneic with her head slumped down. Paramedics report of having to hold her head up to have her breathe with the nebulizer treatment in place. Patient was given Solu- Medrol 125 mg IV and 4 nebulizer treatments prior to arrival in the ER for documentation. On arrival in the ER patient was extremely lethargic however was reportedly able to answer some questions. Patient was felt not to be able to protect her airway as well as very hypoxic and hence was intubated by ER physician and placed on mechanical ventilation. Chest x-ray in the ER showed bilateral infiltrates and possible cavitary lesion. She was accepted for admission by critical care medicine service. CT chest was ordered by ER physician. When I evaluated the patient in the ER she was sedated with propofol , orally intubated on mechanical ventilation. History was obtained by reviewing records and discussion with ER physician. 10/29 Patient is sedated with Diprivan and intubated. Afebrile. 10/30 Patient remains sedated and intubated. T:99.7 last night. 10/31: Intubated sedated. CT reviewed and discussed with Dr. Madison. Will consider Bronch. Also check thyroid US and possible biopsy. Check thyroid studies. Also consult palliative care as patient has underlying dementia with NPH and possible malignancy. 11/01: Tmax 100.3. Plan for bronchoscopy at 3:00 today. Noted thyroid masses chronic/since 2011. Tolerating tube feeding. Positive BM. 11/02: Tmax 100.1. Status post bronchoscopy yesterday with removal of mucous plugging. Tolerating tube feeds. Positive BM. Weaning propofol sedation today. 11/03: Tmax 100.6. Noted elevated leukocytosis. Weaning sedation. Positive BM. Tolerate tube feeding. 11/04: Afebrile. UA negative. C. difficile pending. 4 bowel movement overnight. Tolerating tube feeding. No new issues. 11/05 Patient is sedated with Diprivan and intubated. T:100.7. Given Labetalol 10mg IV x3 for hypertension overnight. 11/06 No events overnight. Off sedation. T: 101.5 last night. Subjective 11/07: Tmax 102. Currently 100.6. Continues off sedation. Eyes are open to voice but not falling commands. Noted MRI brain unchanged. MRI C-spine revealed no cord compression or cord abnormality's. Severe C5/6 right foraminal narrowing 11/08: Remains intubated sedated, intermittently opens eyes. Per palliative care , protein purification scientist requesting letter of certification from treatment team. Prior to making a decision to withdraw from life support, the protein purification scientist is requesting a letter from the covering physicians certifying that she is hospice appropriate and palliative rather than aggressive treatment is appropriate. Dr. Madison thinks hospice is appropriate but also recommends Oncology input. I have consulted medical oncology 11/09 Patient remains intubated, on no sedation, Tmax 103.1 gets tachypneic with CPAP trials 11/10 Patient is intubated had T:100.3 last night. Doesn't follow commands. 10 No events overnight. Placed on Precedex drip yesterday to facilitate with weaning trials. T: 99.7. Awake looking around with her eyes but does not following commands. 11/12 Patient remains intubated. On Precedex drip. Did not tolerate CPAP trials yesterday. 11/13 No events overnight. Intubated doesn't tolerate CPAP trials. T:100.5 last night. 11/14 Patient remains intubated. Off sedation. T;100.1 11/15 No events overnight. Intubated. T:100.8 last night. Objective Vital Signs Date Time Temp Pulse Resp B/P (MAP) Pulse Ox O2 Delivery O2 Flow Rate FiO2 11/15/16 07:30 100 40 11/15/16 06:00 93 11/15/16 04:00 99.6 16 153/69 (97) Intake and Output 11/15/16 11/15/16 11/16/16 08:00 16:00 00:00 Intake Total 1191 ml Output Total 600 ml Balance 591 ml Result Diagram: 11/15/16 0545 11/15/16 0543 Other Results Laboratory Tests Test 11/15/16 05:43 11/15/16 05:45 Blood Urea Nitrogen 39 MG/DL Creatinine 0.86 MG/DL Random Glucose 205 MG/DL Calcium Level 8.4 MG/DL Sodium Level 147 MEQ/L Potassium Level 4.3 MEQ/L Chloride Level 114 MEQ/L Carbon Dioxide Level 27.1 MEQ/L Anion Gap 6 MEQ/L Estimat Glomerular Filtration Rate 65 ML/MIN White Blood Count 10.1 TH/MM3 Red Blood Count 3.17 MIL/MM3 Hemoglobin 9.3 GM/DL Hematocrit 28.3 % Mean Corpuscular Volume 89.2 FL Mean Corpuscular Hemoglobin 29.3 PG Mean Corpuscular Hemoglobin Concent 32.9 % Red Cell Distribution Width 14.3 % Platelet Count 455 TH/MM3 Mean Platelet Volume 8.3 FL Neutrophils (%) (Auto) 60.8 % Lymphocytes (%) (Auto) 25.5 % Monocytes (%) (Auto) 8.5 % Eosinophils (%) (Auto) 4.2 % Basophils (%) (Auto) 1.0 % Neutrophils # (Auto) 6.1 TH/MM3 Lymphocytes # (Auto) 2.6 TH/MM3 Monocytes # (Auto) 0.9 TH/MM3 Eosinophils # (Auto) 0.4 TH/MM3 Basophils # (Auto) 0.1 TH/MM3 CBC Comment DIFF FINAL Differential Comment Imaging Last Impressions Chest X-Ray 11/12/16 0600 Signed Impressions: Service Date/Time: Saturday, November 12, 2016 04:11 - CONCLUSION: Right greater than left airspace disease modestly worse. Keshav Burks MD Cervical Spine MRI 11/06/16 0000 Signed Impressions: Service Date/Time: Sunday, November 06, 2016 21:36 - CONCLUSION: 1. Multilevel degenerative changes of the cervical spine as above, especially C5/ C6 and C6/C7. 2. Mild to moderate spinal stenosis and severe right foraminal stenosis at C5/C6. 3. Mild spinal stenosis and moderate right foraminal stenosis at C6/C7. 4. No cord compression or cord signal abnormality. 5. No fracture or subluxation. 6. Large nodule of the left lobe of the thyroid gland. There are also upper limits of normal bilateral cervical lymph nodes. Keshav Burks MD Brain MRI 11/06/16 0000 Signed Impressions: Service Date/Time: Sunday, November 06, 2016 21:36 - CONCLUSION: 1. No change or acute abnormality demonstrated. 2. Atrophy, ventriculomegaly and chronic white matter changes are again noted. Keshav Burks MD Thyroid Ultrasound 10/31/16 0000 Signed Impressions: Service Date/Time: Monday, October 31, 2016 11:47 - CONCLUSION: Large complex mass right lobe of the thyroid. Minimally increased in size since Jacoby Torre MD FACR Abdomen X-Ray 10/29/16 0000 Signed Impressions: Service Date/Time: Saturday, October 29, 2016 15:32 - CONCLUSION: Negative for radiopaque foreign bodies. Jacoby Torre MD FACR Chest CT 10/28/161813 Signed Impressions: Service Date/Time: Friday, October 28, 2016 18:28 - CONCLUSION: 1. Abnormality on chest radiograph corresponds to a 3.4 x 3.5 cm central right hilar mass/adenopathy with associated postobstructive airspace consolidation in the inferior right upper lobe. There are at least 2 additional pulmonary nodules measuring 13 x 8 mm in the anterior right middle lobe and 8 x 8 mm in the anterior right upper lobe near the apex. 2. 3.9 x 4.3 cm heterogeneous nodule in the right thyroid gland. No significant regional cervical adenopathy. 3. Patchy bilateral lower lobe air space consolidation and diffuse ground glass opacities. Differential considerations include ARDS versus infection versus aspiration. 1. Tyler Selby MD Head CT 10/28/16 0000 Signed Impressions: Service Date/Time: Friday, October 28, 2016 20:44 - CONCLUSION: 1. No bleed or evidence of acute infarction. 2. Atrophy and chronic white matter changes. 3. Moderate ventriculomegaly, beyond that expected for the degree of atrophy. Normal pressure hydrocephalus would be in the differential. Keshav Burks MD Objective Remarks GENERAL: 71-year-old female, critically ill currently orotracheally intubated SKIN: Warm and dry. HEAD: Atraumatic. Normocephalic. EYES: Pupils equal and round about 3 mm bilaterally and reactive. No scleral icterus. No injection or drainage. ENT: No nasal bleeding or discharge. Orotracheally intubated NECK: Trachea midline. No JVD. Right-sided thyromegaly/palpable mass noted CARDIOVASCULAR: Tachycardic, RR. S1, S2 no S4. Without murmur RESPIRATORY: Diminished breath sounds right upper lobe. Coarse crackles appreciated bilaterally. Also bilateral course rhonchi GASTROINTESTINAL: Abdomen soft, non-tender, nondistended. Hepatic and splenic margins not palpable. MUSCULOSKELETAL: Extremities bilateral trace nonpitting lower extremity edema. No obvious deformities. NEUROLOGICAL: Positive gag. Positive corneal reflex. Not following commands upper or lower extremity. Upward toes. A/P Assessment and Plan Plan: Neuro/Psych: Depression/anxiety Toxic metabolic encephalopathy Ventriculomegaly History of dementia Off sedation, monitor neuro status. Patient does not follow commands. EEG 11/06 revealed triphasic sway/diffuse sharp waves likely moderate encephalopathy cannot rule out proclivity of seizure Neuro eval for encephalopathy with Dr. Sampson noted CT brain: Moderate ventriculomegaly, beyond that expected for the degree of atrophy. MRI confirms. Neurosurgery is following- Dr. Hernandez No acute intervention Repeat MRI brain 11/06 stable for ventriculomegaly. No other acute findings Currently holding home medications clonazepam 0.5 mg twice a day and quetiapine 25 mg at night On levetiracetam 500 mg IV twice a day per neurology's EEG above As needed fentanyl 50 every 8 hours when necessary pain CV: Hypertension Dyslipidemia On Lopressor 50mg Q8, amlodipine 10mg daily, increase Clonidine 0.3mg Q8, - Monitor HR and BP keep MAP>65mmHg Home medication for hypertension include amlodipine 10 mg by mouth daily and carvedilol 25 mg by mouth twice a day As needed hydralazine and labetalol and Nitropaste for hypertension Currently holding atorvastatin 40 mg by mouth daily for dyslipidemia. Pulm Acute hypoxemic respiratory failure possibly secondary to post obstructive pneumonia Squamous cell carcinoma of Lung PRVC 12/500/0//. Ventilator bundle Albuterol/ipratropium aerosols every 6 hours with albuterol aerosols every 2 hours. Dyspnea. At 3% saline aerosols every 6 hours [address] chest reviewed revealed 3.4 x 2.5 right hilar mass with post discharge pneumonia in the right upper lobe. Right middle lobe mass. Pulm is following- Dr. Madison, s/p bronch with BAL 11/01. Cytology positive ( squamous cell carcinoma) Renal/: Hypernatremia - resolved Monitor renal function, I/O's, electrolytes replacement per protocol. Increase free water 250 cc every 6 hours tube feeds GI/liver: Mild protein calorie malnutrition Continue with Glucerna 1.5 at 40 cc an hour On famotidine 20mg BID for GI prophylaxis ID: Escherichia coli UTI Postobstructive pneumonia Continue with abx per ID (Aztreonam, Merrem, Diflucan) monitor for signs of infections ( Fever, WBC). Recheck sputum cx Sputum cx 11/09: Pseudomonas, Staph Aureus Follow up on cultures and bronchoscopy 11/01- Yeast species BC 11/04: NGTD Blood cultures 2 - 11/06 - NGTD Sputum 11/06 ESBL E Coli, PSAE, Staph. Strep pneumonia urinary Ag negative. ID is following- Dr. 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 Patient has hilar mass with pulmonary nodules, also thyroid mass. Seen by Oncology-Dr. Xavier patient is not candidate for surgery, chemo radiation give poor performance status, hospice was recommended. Palliative care is following Endocrine: Diabetes mellitus Right thyroid mass 6.8 cm/chronic Increase Levemir 20 units Q12 On SSI medium scale Novulin R for glycemic control. Patient is on insulin glargine at home Prophylaxis: Famotidine 20 mg twice a day via OG tube, SCDs/subcutaneous heparin Level 3 Remains critically ill now with ESBL E Coli and PSAE pneumonia. protein purification scientist requiring certification from treatment team prior to proceeding with withdrawal of life support/Hospice Letter was signed and submitted. Santana Browning MD Nov 15, 2016 08:20
[2016-11-15] MEDS: LACTOBACILLUS ACIDOPHILUS TAB PO SCH ×3 (08:22→17:31)
[2016-11-15] MEDS ORDERED: INSULIN DETEMIR 100 UNITS/ML VIAL SQ SCH (09:00)
[2016-11-15] MEDS: FREE WATER NG SCH ×3 (12:00→23:30)
--- NOTE | 2016-11-15 12:39 | HHI.HCPN ---
Reason for visit a. To assist with evaluation and management of symptoms including: dyspnea, debility. b. To assist medical decision maker(s) with: better understanding of current medical conditions; weighing benefits/burdens of medical treatment options; making medical treatment decisions. . (Mirlande Pak) Subjective/Interval History Patient seen and examined in ICU. Discussed with nurse, Regina. Awaiting court decision regarding request for withdrawal of life support with hospice services. Leticia Levine LCSW has contacted [facility], [place] and Law Reporter Cheri Schaefer internal medicine physician assistant to attempt to determine when a decision may be made regarding transition to comfort, withdrawal of life support and hospice services. Patient continues to fail CPAP trials. Tmax 100.8. Tachycardic rate 100. WBC 10.1. No new imaging. . (Mirlande Pak) Advance Directives Living Will: Never completed Health Care Surrogate: Never completed Durable Power of Centrifugal Spinner: Never completed (Mirlande Pak) Advance Directive Specifics Health Care Surrogate(s): Patient has a court appointed guardian, [facility] - [place]. . Significant change in goals: NO CODE. Awaiting court determination regarding transition to comfort measures with withdrawal of life support and hospice services. . (Mirlande Pak) Objective Vital Signs Date Time Temp Pulse Resp B/P (MAP) Pulse Ox O2 Delivery O2 Flow Rate FiO2 11/15/16 12:16 99 40 11/15/16 12:00 90 11/15/16 12:00 99.4 104 28 160/72 (101) 96 11/15/16 12:00 40 11/15/16 11:00 92 27 155/70 (98) 100 11/15/16 10:00 91 11/15/16 10:00 91 21 164/74 (104) 100 11/15/16 10:00 91 21 164/74 (104) 100 11/15/16 09:00 82 31 141/78 (99) 98 11/15/16 08:00 99.2 70 35 156/66 (96) 100 11/15/16 08:00 40 11/15/16 08:00 70 11/15/16 07:30 100 40 11/15/16 07:00 70 36 146/65 (92) 100 11/15/16 06:00 93 11/15/16 06:00 93 37 161/72 (101) 100 11/15/16 05:00 91 27 168/72 (104) 100 11/15/16 04:01 100 40 11/15/16 04:00 40 11/15/16 04:00 99.6 80 16 153/69 (97) 100 11/15/16 04:00 80 11/15/16 02:00 89 11/15/16 00:14 100 40 11/15/16 00:00 70 11/15/16 00:00 99.8 70 33 134/63 (86) 100 11/15/16 00:00 40 11/14/16 22:00 87 11/14/16 20:51 100 40 11/14/16 20:00 100.8 83 34 147/65 (92) 100 11/14/16 20:00 40 11/14/16 20:00 83 11/14/16 18:00 91 11/14/16 16:00 40 11/14/16 16:00 99.6 105 15 154/68 (96) 100 11/14/16 16:00 91 11/14/16 15:00 107 16 164/70 (101) 99 11/14/16 14:01 97 18 138/64 (88) 100 11/14/16 14:00 91 11/14/16 14:00 97 28 100 11/14/16 13:00 110 23 182/77 (112) 100 11/14/16 12:40 100 40 Intake & Output 11/15/16 11/15/16 07:00 19:00 Intake Total 1822 ml 100 ml Output Total 1400 ml Balance 422 ml 100 ml Intake Oral 0 ml IV Total 723 ml 100 ml Tube Feeding 899 ml Other 200 ml Output Urine Total 1400 ml # Bowel Movements 2 Physical Exam CONSTITUTIONAL/GENERAL: This is an elderly, critically, chronically ill patient, on mech vent. TUBES/LINES/DRAINS:PIV, ETT, OGT, Jang catheter, SCDs EYES: closed. CARDIOVASCULAR: Regular rate and rhythm without murmurs, gallops, or rubs. RESPIRATORY/CHEST: mildly labored respirations on mech vent. GASTROINTESTINAL: Abdomen soft, round, large. No guarding. Bowel sounds present. GENITOURINARY: Without palpable bladder distension. Jang catheter in place. MUSCULOSKELETAL: Extremities without clubbing, cyanosis. Edema to bilateral extremities. No mottling or clubbing. NEUROLOGICAL: Intubated. Not following commands. Not responding to tactile or verbal stimuli. PSYCHIATRIC: Unresponsive. . (Mirlande Pak) Diagnostic Tests Laboratory Laboratory Tests Test 11/13/16 03:42 11/14/16 04:58 11/15/16 05:43 11/15/16 05:45 White Blood Count 13.9 TH/MM3 (4.0-11.0) 12.4 TH/MM3 (4.0-11.0) 10.1 TH/MM3 (4.0-11.0) Red Blood Count 3.47 MIL/MM3 (4.00-5.30) 3.23 MIL/MM3 (4.00-5.30) 3.17 MIL/MM3 (4.00-5.30) Hemoglobin 10.0 GM/DL (11.6-15.3) 9.2 GM/DL (11.6-15.3) 9.3 GM/DL (11.6-15.3) Hematocrit 30.3 % (35.0-46.0) 28.6 % (35.0-46.0) 28.3 % (35.0-46.0) Mean Corpuscular Volume 87.3 FL (80.0-100.0) 88.5 FL (80.0-100.0) 89.2 FL (80.0-100.0) Mean Corpuscular Hemoglobin 28.9 PG (27.0-34.0) 28.6 PG (27.0-34.0) 29.3 PG (27.0-34.0) Mean Corpuscular Hemoglobin Concent 33.1 % (32.0-36.0) 32.3 % (32.0-36.0) 32.9 % (32.0-36.0) Red Cell Distribution Width 14.0 % (11.6-17.2) 14.6 % (11.6-17.2) 14.3 % (11.6-17.2) Platelet Count 565 TH/MM3 (150-450) 498 TH/MM3 (150-450) 455 TH/MM3 (150-450) Mean Platelet Volume 8.1 FL (7.0-11.0) 8.2 FL (7.0-11.0) 8.3 FL (7.0-11.0) Neutrophils (%) (Auto) 71.6 % (16.0-70.0) 68.8 % (16.0-70.0) 60.8 % (16.0-70.0) Lymphocytes (%) (Auto) 17.8 % (9.0-44.0) 18.5 % (9.0-44.0) 25.5 % (9.0-44.0) Monocytes (%) (Auto) 7.5 % (0.0-8.0) 8.2 % (0.0-8.0) 8.5 % (0.0-8.0) Eosinophils (%) (Auto) 1.7 % (0.0-4.0) 3.5 % (0.0-4.0) 4.2 % (0.0-4.0) Basophils (%) (Auto) 1.4 % (0.0-2.0) 1.0 % (0.0-2.0) 1.0 % (0.0-2.0) Neutrophils # (Auto) 10.0 TH/MM3 (1.8-7.7) 8.5 TH/MM3 (1.8-7.7) 6.1 TH/MM3 (1.8-7.7) Lymphocytes # (Auto) 2.5 TH/MM3 (1.0-4.8) 2.3 TH/MM3 (1.0-4.8) 2.6 TH/MM3 (1.0-4.8) Monocytes # (Auto) 1.0 TH/MM3 (0-0.9) 1.0 TH/MM3 (0-0.9) 0.9 TH/MM3 (0-0.9) Eosinophils # (Auto) 0.2 TH/MM3 (0-0.4) 0.4 TH/MM3 (0-0.4) 0.4 TH/MM3 (0-0.4) Basophils # (Auto) 0.2 TH/MM3 (0-0.2) 0.1 TH/MM3 (0-0.2) 0.1 TH/MM3 (0-0.2) CBC Comment DIFF FINAL DIFF FINAL DIFF FINAL Differential Comment Blood Urea Nitrogen 37 MG/DL (7-18) 35 MG/DL (7-18) 39 MG/DL (7-18) Creatinine 0.92 MG/DL (0.50-1.00) 0.86 MG/DL (0.50-1.00) 0.86 MG/DL (0.50-1.00) Random Glucose 275 MG/DL (74-106) 192 MG/DL (74-106) 205 MG/DL (74-106) Calcium Level 8.5 MG/DL (8.5-10.1) 8.7 MG/DL (8.5-10.1) 8.4 MG/DL (8.5-10.1) Sodium Level 145 MEQ/L (136-145) 146 MEQ/L (136-145) 147 MEQ/L (136-145) Potassium Level 3.8 MEQ/L (3.5-5.1) 4.0 MEQ/L (3.5-5.1) 4.3 MEQ/L (3.5-5.1) Chloride Level 111 MEQ/L (98-107) 112 MEQ/L (98-107) 114 MEQ/L (98-107) Carbon Dioxide Level 25.5 MEQ/L (21.0-32.0) 25.0 MEQ/L (21.0-32.0) 27.1 MEQ/L (21.0-32.0) Anion Gap 9 MEQ/L (5-15) 9 MEQ/L (5-15) 6 MEQ/L (5-15) Estimat Glomerular Filtration Rate 60 ML/MIN (>89) 65 ML/MIN (>89) 65 ML/MIN (>89) (Mirlande Pak) Result Diagram: 11/15/16 0545 11/15/16 0543 Microbiology Microbiology Date/Time Source Procedure Growth Status 11/09/16 09:58 Blood Peripheral Aerobic Blood Culture - Final NO GROWTH IN 5 DAYS Complete 11/09/16 09:58 Blood Peripheral Anaerobic Blood Culture - Final NO GROWTH IN 5 DAYS Complete 11/09/16 09:30 Sputum Endotracheal Gram Stain - Final Complete 11/09/16 09:30 Sputum Culture - Final Pseudomonas Aeruginosa Staphylococcus Aureus Complete 11/09/16 09:30 Urine Catheterized Urine Urine Culture - Final NO GROWTH IN 48 HOURS. Complete 10/28/16 17:00 Other - Final Complete Imaging Last Impressions Chest X-Ray 11/12/16 0600 Signed Impressions: Service Date/Time: Saturday, November 12, 2016 04:11 - CONCLUSION: Right greater than left airspace disease modestly worse. Keshav Burks MD Cervical Spine MRI 11/06/16 0000 Signed Impressions: Service Date/Time: Sunday, November 06, 2016 21:36 - CONCLUSION: 1. Multilevel degenerative changes of the cervical spine as above, especially C5/ C6 and C6/C7. 2. Mild to moderate spinal stenosis and severe right foraminal stenosis at C5/C6. 3. Mild spinal stenosis and moderate right foraminal stenosis at C6/C7. 4. No cord compression or cord signal abnormality. 5. No fracture or subluxation. 6. Large nodule of the left lobe of the thyroid gland. There are also upper limits of normal bilateral cervical lymph nodes. Keshav Burks MD Brain MRI 11/06/16 0000 Signed Impressions: Service Date/Time: Sunday, November 06, 2016 21:36 - CONCLUSION: 1. No change or acute abnormality demonstrated. 2. Atrophy, ventriculomegaly and chronic white matter changes are again noted. Keshav Burks MD Thyroid Ultrasound 10/31/16 0000 Signed Impressions: Service Date/Time: Monday, October 31, 2016 11:47 - CONCLUSION: Large complex mass right lobe of the thyroid. Minimally increased in size since Jacoby Torre MD FACR Abdomen X-Ray 10/29/16 0000 Signed Impressions: Service Date/Time: Saturday, October 29, 2016 15:32 - CONCLUSION: Negative for radiopaque foreign bodies. Jacoby Torre MD FACR Chest CT 10/28/16 1814 Signed Impressions: Service Date/Time: Friday, October 28, 2016 18:28 - CONCLUSION: 1. Abnormality on chest radiograph corresponds to a 3.4 x 3.5 cm central right hilar mass/adenopathy with associated postobstructive airspace consolidation in the inferior right upper lobe. There are at least 2 additional pulmonary nodules measuring 13 x 8 mm in the anterior right middle lobe and 8 x 8 mm in the anterior right upper lobe near the apex. 2. 3.9 x 4.3 cm heterogeneous nodule in the right thyroid gland. No significant regional cervical adenopathy. 3. Patchy bilateral lower lobe air space consolidation and diffuse ground glass opacities. Differential considerations include ARDS versus infection versus aspiration. 1. Tyler Selby MD Head CT 10/28/16 0000 Signed Impressions: Service Date/Time: Friday, October 28, 2016 20:44 - CONCLUSION: 1. No bleed or evidence of acute infarction. 2. Atrophy and chronic white matter changes. 3. Moderate ventriculomegaly, beyond that expected for the degree of atrophy. Normal pressure hydrocephalus would be in the differential. Keshav Burks MD Procedures 11/01/16 Bronchoscopy 10/28/16 Intubated and mechanically ventilated . (Mirlande Pak) Assessment and Plan Disease Oriented Problem List: (1) Acute respiratory failure requiring reintubation (2) Sepsis (3) Pulmonary nodules (4) Normal pressure hydrocephalus (5) Diabetes mellitus (6) Thyroid mass Symptom Scale: (1) Shortness of breath 0-10 Scale: Unable to quantify Comment: Intubated and mechanically ventilated. . (2) Debility 0-10 Scale: Unable to quantify Comment: Resident of a long-term facility, requiring assistance with ADLs. Progressive debility. . Pertinent Non-Medical Issues Psychosocial: Patient is a resident at a intermediate frame tender care facility. As per prior medical records from 2007, patient has two sons who reside in the area. Per court appointed guardian, one son is and the other son who once served as patient`s DPOA was not fulfilling his duties and the court appointed a guardian for the patient. 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 Spiritual: Unable to obtain, patient is intubated on mechanical ventilation and sedated. Legal: Patient has a court appointed guardian. Ethical issues impacting care: Patient has a court appointed guardian.Patient has a signed DNR in 2010 by her son prior to court appointed guardian. . Important Contacts [place]/[facility]- Court appointed guardian . Prognosis Ms Dalton is a 70 years old female with a medical history of diabetes mellitus, dementia, thyroid disease, anxiety, depression and hyperlipemia, and reactive airway disease. Patient presented to the ED 10/28/16 via EMS after complaining of shortness of breath. Patient was intubated and placed on mechanical ventilation secondary to acute hypoxemic respiratory failure. 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 Patient's prognosis is guarded. Patient at high risk for further complications, clinical decline and given the above. . Code Status: No Code Plan * Legal decision maker: Patient has [facility] [place] kelly. * NO CODE - per legal recommendation to honor prior [place] DNR order. * Goals: Patient continues to fail CPAP trials. After discussion with the medical team it was determined that the patient is hospice appropriate and would benefit from transition to comfort measures with withdrawal of life support. Letter to summarize medical problems, prognosis and recommendation for comfort measures was signed by Dr. Wasserman and Dr. Stephenson and forwarded to the [facility] guardian, [place] on 11/12/16. * 11/15/16 - Leticia Levine LCSW has contacted [facility] [place]OR[place] and Law Reporter Cheri Schaefer internal medicine physician assistant by phone and email to attempt to determine when a decision may be made regarding transition to comfort, withdrawal of life support and hospice services. * SYMPTOMS: Respiratory distress/ dyspnea - patient remains intubated on mechanical ventilation. Patient failing CPAP trials, gets tachypneic. Sputum culture positive for Escherichia coli, ESBL positive, pseudomonas aeruginosa, methicillin-resistant staph aureus. ID following. Debility - admitted from a fci with significant debility, she has been on bed rest, mechanically ventilated. If goals remain aggressive care patient would benefit from physical therapy. * Palliative care will continue to follow the patient during hospital course as condition evolves, to assist patient/decision-maker with understanding of their medical conditions, weighing benefits/burdens of treatment options, for clarification of goals of treatment. Additionally will assist with any symptoms of palliative concern. . (Mirlande Pak) Attestation To help prompt me to consider important information that might be impacting today's encounter and assessment, information from prior notes written by myself or my colleagues may have been "brought forward" into today's note. My signature on this note, however, is an attestation that I personally performed the exam, history, and/or decision-making noted today, and, unless otherwise indicated, the interactions with patient, family, and staff as well as the review of records all occurred today. I also attest that the listed assessment and stated plan reflect my best clinical judgment today based on the combination of historical information, prior notes, and today's exam/ interactions. When time spent is documented, it refers only to time spent today by the signer, or if indicated, combined time spent today by collaborating physician/nurse practitioner. (Mirlande Pak) Collaborating MD Comments Chart reviewed. Case discussed with palliative care POPCORN ATTENDANT. Above POPCORN ATTENDANT note reviewed and I concur. . (Jhonatan Stephenson MD) Mirlande Pak Nov 15, 2016 12:39 Jhonatan Stephenson MD Nov 18, 2016 18:24
[2016-11-15] MEDS: cloNIDine HCL 0.3 MG TAB PO SCH ×2 (13:57→20:28)
--- NOTE | 2016-11-15 16:39 | HHI.PR ---
Subjective Remarks 70 YOWF with VDRF,Pneumonia, ? Aspiration Off sedation Bronchial wash Sq cell ca Did't tolerate CPAP Mod amount of trach secretions. No fever Objective Vital Signs Vital Signs Date Time Temp Pulse Resp B/P (MAP) Pulse Ox O2 Delivery O2 Flow Rate FiO2 11/15/16 16:11 96 40 11/15/16 14:00 109 11/15/16 12:16 99 40 11/15/16 12:00 90 11/15/16 12:00 99.4 104 28 160/72 (101) 96 11/15/16 12:00 40 11/15/16 11:00 92 27 155/70 (98) 100 11/15/16 10:00 91 11/15/16 10:00 91 21 164/74 (104) 100 11/15/16 10:00 91 21 164/74 (104) 100 11/15/16 09:00 82 31 141/78 (99) 98 11/15/16 08:00 99.2 70 35 156/66 (96) 100 11/15/16 08:00 40 11/15/16 08:00 70 11/15/16 07:30 100 40 11/15/16 07:00 70 36 146/65 (92) 100 11/15/16 06:00 93 11/15/16 06:00 93 37 161/72 (101) 100 11/15/16 05:00 91 27 168/72 (104) 100 11/15/16 04:01 100 40 11/15/16 04:00 40 11/15/16 04:00 99.6 80 16 153/69 (97) 100 11/15/16 04:00 80 11/15/16 02:00 89 11/15/16 00:14 100 40 11/15/16 00:00 70 11/15/16 00:00 99.8 70 33 134/63 (86) 100 11/15/16 00:00 40 11/14/16 22:00 87 11/14/16 20:51 100 40 11/14/16 20:00 100.8 83 34 147/65 (92) 100 11/14/16 20:00 40 11/14/16 20:00 83 11/14/16 18:00 91 I/O 11/14/16 11/14/16 11/14/16 11/15/1617 10/5/17 07:00 15:00 23:00 07:00 15:00 23:00 Intake Total 1732 ml 400 ml 836 ml 1191 ml 205 ml 701 ml Output Total 725 ml 800 ml 600 ml 625 ml Balance 1007 ml 400 ml 36 ml 591 ml 205 ml 76 ml Intake Oral 0 ml IV Total 400 ml 200 ml 205 ml 723 ml 205 ml 100 ml Tube Feeding 932 ml 431 ml 468 ml 351 ml Other 400 ml 200 ml 200 ml 250 ml Output Urine Total 725 ml 800 ml 600 ml 625 ml # Bowel Movements 2 0 2 5 Result Diagram: 11/15/16 0545 11/15/16 0543 Objective Remarks GENERAL: MBMN WF, intubated, sedated SKIN: Warm and dry. HEAD: Normocephalic. EYES: No scleral icterus. No injection or drainage. NECK: Supple, trachea midline. No JVD or lymphadenopathy. CARDIOVASCULAR: Regular rate and rhythm without murmurs, gallops, or rubs. RESPIRATORY: Breath sounds equal bilaterally. No accessory muscle use. GASTROINTESTINAL: Abdomen soft, non-tender, nondistended. MUSCULOSKELETAL: No cyanosis, or edema. BACK: Nontender without obvious deformity. No CVA tenderness. A/P Assessment and Plan VDRF Pneumonia Aspiration DM Dementia Ventriculomegaly Squamous cell ca PLAN: Vent Support -AC 14, Fi02 35% Cont Abx Aerosol nebs SQ Heparin Code status DNR Prognosis poor Awaiting decision by The per diem physical therapist for withdrawl, hospice care Luis Madison MD Nov 15, 2016 16:39
[2016-11-15] MEDS: RESP: ALBUTEROL 2.5 MG/3 ML NEB (PRN) NEB (20:38)
[2016-11-16] VITALS (27 sets, daily range): BP systolic 132–173; BP diastolic 63–81; PULSE 79–121; RESP 19–50; TEMP 99.2–99.9; O2SAT 95–100
[2016-11-16] MEDS: INSULIN NovoLIN REGULAR SUPPLEMENTAL SCALE SQ SCH ×4 (02:00→20:00)
[2016-11-16] MEDS: CHLORHEXIDINE GLUCONATE 2 % 1 PACK (2 CLOTHS) TOP SCH (03:43)
[2016-11-16] MEDS: levETIRAcetam INJ 500 MG in SODIUM CHLORIDE 0.9% INJ 100 ML IV SCH ×2 (03:43→14:12)
[2016-11-16] MEDS: hydrALAZINE HCL 20 MG/ML VIAL IV PUSH PRN (03:43)
[2016-11-16] MEDS: RESP: ALBUTEROL 2.5 MG/3 ML NEB (PRN) NEB (04:02)
[2016-11-16 04:31] LABS: AUTOMATED NEUTROPHIL # 5.7 TH/MM3 (1.8-7.7); BASOPHIL # 0.1 TH/MM3 (0-0.2); BASOPHIL % 0.8 % (0.0-2.0); EOSINOPHIL # 0.5 TH/MM3 (0-0.4); EOSINOPHIL % 5.6 % (0.0-4.0); HEMATOCRIT 29.8 % (35.0-46.0); HEMO FLAGS DIFF FINAL; LYMPHOCYTE # 2.3 TH/MM3 (1.0-4.8); MEAN CELL VOLUME 89.1 FL (80.0-100.0); MEAN CORPUSCULAR HEMOGLOBIN 28.9 PG (27.0-34.0); MEAN CORPUSCULAR HGB CONC 32.4 % (32.0-36.0); NEUT % 61.6 % (16.0-70.0); PLATELET COUNT 448 TH/MM3 (150-450); RED BLOOD COUNT 3.34 MIL/MM3 (4.00-5.30); RED CELL DISTRIBUTION WIDTH 13.9 % (11.6-17.2); WHITE BLOOD COUNT 9.3 TH/MM3 (4.0-11.0)
[2016-11-16 04:41] LABS: BICARBONATE 27.4 MEQ/L (21.0-32.0); POTASSIUM 4.3 MEQ/L (3.5-5.1)
[2016-11-16] MEDS: FREE WATER NG SCH ×3 (06:00→21:39)
[2016-11-16] MEDS: cloNIDine HCL 0.3 MG TAB PO SCH ×3 (06:51→21:38)
[2016-11-16] MEDS: METOPROLOL TARTRATE 50 MG TAB PO SCH ×3 (08:09→21:38)
[2016-11-16] MEDS: AZTREONAM INJ 2,000 MG in SODIUM CHLORIDE 0.9% INJ 100 ML IV SCH ×3 (08:09→23:54)
[2016-11-16] MEDS: CHLORHEXIDINE 0.12% (ORAL KIT) 15 ML CUP MT SCH ×2 (08:26→20:00)
[2016-11-16] MEDS: MEROPENEM INJ 1,000 MG in SODIUM CHLORIDE 0.9% INJ 100 ML IV SCH ×3 (08:26→23:54)
[2016-11-16] MEDS: MUPIROCIN 2% OINT 1 APPLIC/GM SYR EACH NARE SCH ×2 (08:38→21:38)
[2016-11-16] MEDS: LACTOBACILLUS ACIDOPHILUS TAB PO SCH ×3 (08:39→17:46)
[2016-11-16] MEDS: HEPARIN SODIUM - SQ 10,000 UNITS/ML VIAL SQ SCH ×3 (08:39→23:55)
[2016-11-16] MEDS: FAMOTIDINE 20 MG TAB PO SCH ×2 (08:39→21:38)
[2016-11-16] MEDS: FLUCONAZOLE 100 MG TAB PO SCH (08:39)
[2016-11-16] MEDS: SODIUM CHLORIDE 0.9% FLUSH 10 ML FLUSH IV FLUSH SCH ×2 (08:39→21:39)
[2016-11-16] MEDS: ARTIFICIAL TEARS OPTH SOLN 15 ML BTL EACH EYE SCH ×3 (08:40→22:00)
[2016-11-16] MEDS: INSULIN DETEMIR 100 UNITS/ML VIAL SQ SCH ×2 (08:43→21:00)
--- NOTE | 2016-11-16 11:06 | HHI.HCPN ---
Received response from Judge Schaefer regarding motion to compassionately withdrawal life support and transition to comfort focused care with support of hospice services. Letter from lace roller received. Credit Rating Inspector has stated guardian has authority to determine health care decisions for parikh, including palliative care , without court order". Credit Rating Inspector has stated "as to motion to remove life support, that motion needs to be served by information notice on next of kin and time to object allowed". Spoke with guardian [place]. She was able to notify patient's son and update him by going to his address. Reports he did not provide a contact number to be called. [place] reports son will be coming to visit today, states it is ok to provide him medical update but HE IS NOT ABLE TO MAKE DECISIONS. She reports he informed her "my mother had told me her wishes were not to be kept alive by machines". Per Credit Rating Inspector's request, next of kin notified and coming to visit. After visitation goals can be further addressed with plan to transition to comfort measures and compassionate withdrawal of life support. Radha Bartholomew requesting notification after son's visitation. Palliative care will continue to follow throughout hospitalization. Leticia Levine, ALIGNING INSPECTOR Nov 16, 2016 11:06
--- NOTE | 2016-11-16 11:45 | HHI.CCPN ---
Subjective Remarks/Hospital Course HPI 70-year-old [place] [facility] resident with a medical history significant for dementia, diabetes mellitus, hyperlipidemia, reactive airway disease who was found to have altered mental status at the [facility] was called. Patient was noted to have O2 sats in the 70s. She was very apneic with her head slumped down. Paramedics report of having to hold her head up to have her breathe with the nebulizer treatment in place. Patient was given Solu- Medrol 125 mg IV and 4 nebulizer treatments prior to arrival in the ER for documentation. On arrival in the ER patient was extremely lethargic however was reportedly able to answer some questions. Patient was felt not to be able to protect her airway as well as very hypoxic and hence was intubated by ER physician and placed on mechanical ventilation. Chest x-ray in the ER showed bilateral infiltrates and possible cavitary lesion. She was accepted for admission by critical care medicine service. CT chest was ordered by ER physician. When I evaluated the patient in the ER she was sedated with propofol , orally intubated on mechanical ventilation. History was obtained by reviewing records and discussion with ER physician. 10/29 Patient is sedated with Diprivan and intubated. Afebrile. 10/30 Patient remains sedated and intubated. T:99.7 last night. 10/31: Intubated sedated. CT reviewed and discussed with Dr. Madison. Will consider Bronch. Also check thyroid US and possible biopsy. Check thyroid studies. Also consult palliative care as patient has underlying dementia with NPH and possible malignancy. 11/01: Tmax 100.3. Plan for bronchoscopy at 3:00 today. Noted thyroid masses chronic/since 2011. Tolerating tube feeding. Positive BM. 11/02: Tmax 100.1. Status post bronchoscopy yesterday with removal of mucous plugging. Tolerating tube feeds. Positive BM. Weaning propofol sedation today. 11/03: Tmax 100.6. Noted elevated leukocytosis. Weaning sedation. Positive BM. Tolerate tube feeding. 11/04: Afebrile. UA negative. C. difficile pending. 4 bowel movement overnight. Tolerating tube feeding. No new issues. 11/05 Patient is sedated with Diprivan and intubated. T:100.7. Given Labetalol 10mg IV x3 for hypertension overnight. 11/06 No events overnight. Off sedation. T: 101.5 last night. 11/07: Tmax 102. Currently 100.6. Continues off sedation. Eyes are open to voice but not falling commands. Noted MRI brain unchanged. MRI C-spine revealed no cord compression or cord abnormality's. Severe C5/6 right foraminal narrowing 11/08: Remains intubated sedated, intermittently opens eyes. Per palliative care , manager materials management requesting letter of certification from treatment team. Prior to making a decision to withdraw from life support, the manager materials management is requesting a letter from the covering physicians certifying that she is hospice appropriate and palliative rather than aggressive treatment is appropriate. Dr. Madison thinks hospice is appropriate but also recommends Oncology input. I have consulted medical oncology 11/09 Patient remains intubated, on no sedation, Tmax 103.1 gets tachypneic with CPAP trials 11/10 Patient is intubated had T:100.3 last night. Doesn't follow commands. 10 No events overnight. Placed on Precedex drip yesterday to facilitate with weaning trials. T: 99.7. Awake looking around with her eyes but does not following commands. 11/12 Patient remains intubated. On Precedex drip. Did not tolerate CPAP trials yesterday. 11/13 No events overnight. Intubated doesn't tolerate CPAP trials. T:100.5 last night. 11/14 Patient remains intubated. Off sedation. T;100.1 11/15 No events overnight. Intubated. T:100.8 last night. Subjective 11/16: Tmax 99.5. Currently resting in bed in no acute distress. Eyes are open but does not follow commands. Off all sedation. Tolerating tube feeding. Positive BM. Objective Vital Signs Date Time Temp Pulse Resp B/P (MAP) Pulse Ox O2 Delivery O2 Flow Rate FiO2 11/16/16 11:18 98 40 11/16/16 06:00 121 11/16/16 04:00 99.5 37 152/67 (95) Intake and Output 11/16/16 11/16/16 11/17/16 08:00 16:00 00:00 Intake Total 1513 ml 100 ml Output Total 800 ml Balance 713 ml 100 ml Result Diagram: 11/16/16 0352 11/16/16 0352 Other Results Microbiology Date/Time Source Procedure Growth Status 11/09/16 09:58 Blood Peripheral Aerobic Blood Culture - Final NO GROWTH IN 5 DAYS Complete 11/09/16 09:58 Blood Peripheral Anaerobic Blood Culture - Final NO GROWTH IN 5 DAYS Complete 11/09/16 09:30 Sputum Endotracheal Gram Stain - Final Complete 11/09/16 09:30 Sputum Culture - Final Pseudomonas Aeruginosa Staphylococcus Aureus Complete 11/09/16 09:30 Urine Catheterized Urine Urine Culture - Final NO GROWTH IN 48 HOURS. Complete 10/28/16 17:00 Other - Final Complete Imaging Last Impressions Chest X-Ray 11/12/16 0600 Signed Impressions: Service Date/Time: Saturday, November 12, 2016 04:11 - CONCLUSION: Right greater than left airspace disease modestly worse. Keshav Burks MD Cervical Spine MRI 11/06/16 0000 Signed Impressions: Service Date/Time: Sunday, November 06, 2016 21:36 - CONCLUSION: 1. Multilevel degenerative changes of the cervical spine as above, especially C5/ C6 and C6/C7. 2. Mild to moderate spinal stenosis and severe right foraminal stenosis at C5/C6. 3. Mild spinal stenosis and moderate right foraminal stenosis at C6/C7. 4. No cord compression or cord signal abnormality. 5. No fracture or subluxation. 6. Large nodule of the left lobe of the thyroid gland. There are also upper limits of normal bilateral cervical lymph nodes. Keshav Burks MD Brain MRI 11/06/16 0000 Signed Impressions: Service Date/Time: Sunday, November 06, 2016 21:36 - CONCLUSION: 1. No change or acute abnormality demonstrated. 2. Atrophy, ventriculomegaly and chronic white matter changes are again noted. Keshav Burks MD Thyroid Ultrasound 10/31/16 0000 Signed Impressions: Service Date/Time: Monday, October 31, 2016 11:47 - CONCLUSION: Large complex mass right lobe of the thyroid. Minimally increased in size since Jacoby Torre MD FACR Abdomen X-Ray 10/29/16 0000 Signed Impressions: Service Date/Time: Saturday, October 29, 2016 15:32 - CONCLUSION: Negative for radiopaque foreign bodies. Jacoby Torre MD FACR Chest CT 10/28/16 1814 Signed Impressions: Service Date/Time: Friday, October 28, 2016 18:28 - CONCLUSION: 1. Abnormality on chest radiograph corresponds to a 3.4 x 3.5 cm central right hilar mass/adenopathy with associated postobstructive airspace consolidation in the inferior right upper lobe. There are at least 2 additional pulmonary nodules measuring 13 x 8 mm in the anterior right middle lobe and 8 x 8 mm in the anterior right upper lobe near the apex. 2. 3.9 x 4.3 cm heterogeneous nodule in the right thyroid gland. No significant regional cervical adenopathy. 3. Patchy bilateral lower lobe air space consolidation and diffuse ground glass opacities. Differential considerations include ARDS versus infection versus aspiration. 1. Tyler Selby MD Head CT 10/28/16 0000 Signed Impressions: Service Date/Time: Friday, October 28, 2016 20:44 - CONCLUSION: 1. No bleed or evidence of acute infarction. 2. Atrophy and chronic white matter changes. 3. Moderate ventriculomegaly, beyond that expected for the degree of atrophy. Normal pressure hydrocephalus would be in the differential. Keshav Burks MD Objective Remarks GENERAL: 71-year-old female, critically ill currently orotracheally intubated SKIN: Warm and dry. HEAD: Atraumatic. Normocephalic. EYES: Pupils equal and round about 3 mm bilaterally and reactive. No scleral icterus. No injection or drainage. ENT: No nasal bleeding or discharge. Orotracheally intubated NECK: Trachea midline. No JVD. Right-sided thyromegaly/palpable mass noted CARDIOVASCULAR: Tachycardic, RR. S1, S2 no S4. Without murmur RESPIRATORY: Coarse crackles appreciated bilaterally. GASTROINTESTINAL: Abdomen soft, non-tender, nondistended. Hepatic and splenic margins not palpable. MUSCULOSKELETAL: Extremities bilateral trace nonpitting lower extremity edema. No obvious deformities. NEUROLOGICAL: Positive gag. Positive corneal reflex. Not following commands upper or lower extremity. Upward toes. A/P Assessment and Plan Neuro/Psych: Depression/anxiety Toxic metabolic encephalopathy Ventriculomegaly History of dementia Off all sedation, monitor neuro status. Patient does not follow commands. EEG 11/06 revealed triphasic sway/diffuse sharp waves likely moderate encephalopathy cannot rule out proclivity of seizure Neuro eval for encephalopathy with Dr. Sampson CT brain: Moderate ventriculomegaly, beyond that expected for the degree of atrophy. MRI confirms. Neurosurgery has followed- Dr. Hernandez No acute intervention Repeat MRI brain 11/06 stable for ventriculomegaly. No other acute findings Currently holding home medications clonazepam 0.5 mg twice a day and quetiapine 25 mg at night On levetiracetam 500 mg IV twice a day per neurology's EEG above As needed fentanyl 50 every 2 hours when necessary pain CV: Hypertension Dyslipidemia On Lopressor 50mg Q8, amlodipine 10mg daily, Clonidine 0.3mg Q8, -Monitor HR and BP keep MAP>65mmHg Home medication for hypertension include amlodipine 10 mg by mouth daily and carvedilol 25 mg by mouth twice a day As needed hydralazine and labetalol and Nitropaste for hypertension Currently holding atorvastatin 40 mg by mouth daily for dyslipidemia. Pulm Acute hypoxemic respiratory failure possibly secondary to post obstructive pneumonia Squamous cell carcinoma of Lung [facility] 125[address]/0//. Ventilator bundle Albuterol/ipratropium aerosols every 6 hours with albuterol aerosols every [address] chest reviewed revealed 3.4 x 2.5 right hilar mass with post discharge pneumonia in the right upper lobe. Right middle lobe mass. Pulm is following- Dr. Madison, s/p bronch with BAL 11/01. Cytology positive ( squamous cell carcinoma) Renal/: Hypernatremia - resolved Monitor renal function, I/O's, electrolytes replacement per protocol. free water 250 cc every 8 hours tube feeds GI/liver: Mild protein calorie malnutrition Continue with Glucerna 1.5 at 40 cc an hour On famotidine 20mg BID for GI prophylaxis Docusate sodium 100 mg twice a day for bowel regimen ID: Escherichia coli UTI Postobstructive pneumonia Continue with abx per ID (fluconazole, aztreonam, meropenem) monitor for signs of infections ( Fever, WBC). Recheck sputum cx Sputum cx 11/09: Pseudomonas, Staph Aureus Follow up on cultures and bronchoscopy 11/01- Yeast species BC 11/04: NGTD Blood cultures 2 - 11/06 - NGTD Sputum 11/06 ESBL E Coli, PSAE, Staph. Strep pneumonia urinary Ag negative. ID is following- Dr. 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 Patient has hilar mass with pulmonary nodules, also thyroid mass. Seen by Oncology-Dr. Xavier patient is not candidate for surgery, chemo radiation give poor performance status, hospice was recommended. Palliative care is following Endocrine: Diabetes mellitus Right thyroid mass 6.8 cm/chronic Increase detemir 20 units Q12 On SSI medium scale Novulin R for glycemic control. Patient is on insulin glargine at home Prophylaxis: Famotidine 20 mg twice a day via OG tube, SCDs/subcutaneous heparin Level II follow-up Niraj Malloy MD Nov 16, 2016 11:45
[2016-11-16] MEDS: RESP: ALBUTEROL 2.5 MG/IPRATROPIUM 0.5 MG NEB (SCH) NEB ×2 (14:30→19:51)
--- NOTE | 2016-11-16 17:32 | HHI.HCPN ---
Reason for visit a. To assist with evaluation and management of symptoms including: dyspnea, debility. b. To assist medical decision maker(s) with: better understanding of current medical conditions; weighing benefits/burdens of medical treatment options; making medical treatment decisions. . Subjective/Interval History Patient seen and examined in ICU. Discussed with nurse, Rick. Leticia Levine LCSW has contacted [facility] [place] [facility]. Letter from district court judge received. [employer] Operations Manager has stated guardian has authority to determine health care decisions for parikh, including palliative care, without court order." [employer] Operations Manager has stated "as to motion to remove life support, that motion needs to be served by information notice on next of kin and time to object allowed." Patient continues to fail CPAP trials. Tmax 100.8. Tachycardic rate 100. WBC 10.1. No new imaging. . Family/friend interactions Spoke with Arun Dalton at bedside. Medical update provided including hospital course since admission, consultants, recommendations and overall poor prognosis. Son verbalizes that his mother previously stated she did not want to be kept alive by machines. He tells me that she had a previous [place] do not resuscitate order, advised him that patient has a DNR and that we have variously signed order dating back to 2010. Reviewed recommendation for transition to comfort focused care with compassionate withdrawal of life support , son confirms that this would be in keeping with the patient wishes and agrees with Guardian plans. He requests that he have a few days to contact family in case patient siblings or other family members may want to come say their goodbyes. Anticipatory guidance provided regarding withdrawal of life support, transition to comfort focused care, hospice services. He agrees. Advised that and may be to proceed with withdrawal of life support on Saturday11/19/16. He agrees to remain in contact with JUSTIN Scott legal guardian. He appreciates care patient has received and time spent. . Advance Directives Living Will: Never completed Health Care Surrogate: Never completed Durable Power of Pit Crew Support Worker: Never completed Advance Directive Specifics Health Care Surrogate(s): Patient has a court appointed guardian, [place] [place] [facility]. . Significant change in goals: NO CODE. Plan for transition to comfort measures with withdrawal of life support with hospice on 11/19/16. Will speak with [facility] guardian on Saturday. Son and family may be visiting over the weekend. Son agrees with guardian decision and verbalizes this would be in keeping with patient wishes. . Objective Vital Signs Date Time Temp Pulse Resp B/P (MAP) Pulse Ox O2 Delivery O2 Flow Rate FiO2 11/16/16 16:19 98 40 11/16/16 16:00 99.5 79 45 132/63 (86) 97 11/16/16 16:00 40 11/16/16 16:00 79 11/16/16 15:00 101 26 150/68 (95) 99 11/16/16 14:00 98 11/16/16 14:00 98 26 145/70 (95) 97 11/16/16 13:00 98 19 151/71 (97) 98 11/16/16 12:01 99.8 109 30 169/72 (104) 95 11/16/16 12:00 40 11/16/16 12:00 116 11/16/16 11:18 98 40 11/16/16 11:00 110 50 170/77 (108) 99 11/16/16 10:01 104 47 173/81 (111) 99 11/16/16 09:00 97 29 147/68 (94) 100 11/16/16 08:01 99.6 99 47 141/65 (90) 100 11/16/16 08:00 40 11/16/16 08:00 118 11/16/16 07:24 100 40 11/16/16 07:00 119 37 161/76 (104) 100 11/16/16 06:00 121 11/16/16 06:00 121 36 158/73 (101) 99 11/16/16 05:00 114 39 153/70 (97) 100 11/16/16 04:08 99 40 11/16/16 04:00 104 11/16/16 04:00 40 11/16/16 04:00 99.5 104 37 152/67 (95) 97 11/16/16 02:00 87 11/16/16 01:14 97 40 11/16/16 00:00 99.2 91 31 162/71 (101) 100 11/16/16 00:00 91 11/16/16 00:00 40 11/15/16 22:04 98 40 11/15/16 22:00 80 11/15/16 20:00 40 11/15/16 20:00 89 11/15/16 20:00 99.4 89 33 160/72 (101) 96 11/15/16 19:35 97 40 11/15/16 18:00 100 Intake & Output 11/16/16 11/16/16 07:00 19:00 Intake Total 1055 ml 558 ml Output Total 800 ml Balance 255 ml 558 ml IV Total 305 ml 558 ml Other 750 ml Output Urine Total 800 ml # Bowel Movements 1 Physical Exam CONSTITUTIONAL/GENERAL: This is an elderly, critically, chronically ill patient, on mech vent. TUBES/LINES/DRAINS:PIV, ETT, OGT, Jang catheter, SCDs EYES: closed. CARDIOVASCULAR: Regular rate and rhythm without murmurs, gallops, or rubs. RESPIRATORY/CHEST: mildly labored respirations on mech vent. GASTROINTESTINAL: Abdomen soft, round, large. No guarding. Bowel sounds present. GENITOURINARY: Without palpable bladder distension. Jang catheter in place. MUSCULOSKELETAL: Extremities without clubbing, cyanosis. Edema to bilateral extremities. No mottling or clubbing. NEUROLOGICAL: Intubated. Not following commands. Not responding to tactile or verbal stimuli. PSYCHIATRIC: Unresponsive. . Diagnostic Tests Laboratory Laboratory Tests Test 11/14/16 04:58 11/15/16 05:43 11/15/16 05:45 11/16/16 03:52 White Blood Count 12.4 TH/MM3 (4.0-11.0) 10.1 TH/MM3 (4.0-11.0) 9.3 TH/MM3 (4.0-11.0) Red Blood Count 3.23 MIL/MM3 (4.00-5.30) 3.17 MIL/MM3 (4.00-5.30) 3.34 MIL/MM3 (4.00-5.30) Hemoglobin 9.2 GM/DL (11.6-15.3) 9.3 GM/DL (11.6-15.3) 9.6 GM/DL (11.6-15.3) Hematocrit 28.6 % (35.0-46.0) 28.3 % (35.0-46.0) 29.8 % (35.0-46.0) Mean Corpuscular Volume 88.5 FL (80.0-100.0) 89.2 FL (80.0-100.0) 89.1 FL (80.0-100.0) Mean Corpuscular Hemoglobin 28.6 PG (27.0-34.0) 29.3 PG (27.0-34.0) 28.9 PG (27.0-34.0) Mean Corpuscular Hemoglobin Concent 32.3 % (32.0-36.0) 32.9 % (32.0-36.0) 32.4 % (32.0-36.0) Red Cell Distribution Width 14.6 % (11.6-17.2) 14.3 % (11.6-17.2) 13.9 % (11.6-17.2) Platelet Count 498 TH/MM3 (150-450) 455 TH/MM3 (150-450) 448 TH/MM3 (150-450) Mean Platelet Volume 8.2 FL (7.0-11.0) 8.3 FL (7.0-11.0) 8.1 FL (7.0-11.0) Neutrophils (%) (Auto) 68.8 % (16.0-70.0) 60.8 % (16.0-70.0) 61.6 % (16.0-70.0) Lymphocytes (%) (Auto) 18.5 % (9.0-44.0) 25.5 % (9.0-44.0) 25.0 % (9.0-44.0) Monocytes (%) (Auto) 8.2 % (0.0-8.0) 8.5 % (0.0-8.0) 7.0 % (0.0-8.0) Eosinophils (%) (Auto) 3.5 % (0.0-4.0) 4.2 % (0.0-4.0) 5.6 % (0.0-4.0) Basophils (%) (Auto) 1.0 % (0.0-2.0) 1.0 % (0.0-2.0) 0.8 % (0.0-2.0) Neutrophils # (Auto) 8.5 TH/MM3 (1.8-7.7) 6.1 TH/MM3 (1.8-7.7) 5.7 TH/MM3 (1.8-7.7) Lymphocytes # (Auto) 2.3 TH/MM3 (1.0-4.8) 2.6 TH/MM3 (1.0-4.8) 2.3 TH/MM3 (1.0-4.8) Monocytes # (Auto) 1.0 TH/MM3 (0-0.9) 0.9 TH/MM3 (0-0.9) 0.7 TH/MM3 (0-0.9) Eosinophils # (Auto) 0.4 TH/MM3 (0-0.4) 0.4 TH/MM3 (0-0.4) 0.5 TH/MM3 (0-0.4) Basophils # (Auto) 0.1 TH/MM3 (0-0.2) 0.1 TH/MM3 (0-0.2) 0.1 TH/MM3 (0-0.2) CBC Comment DIFF FINAL DIFF FINAL DIFF FINAL Differential Comment Blood Urea Nitrogen 35 MG/DL (7-18) 39 MG/DL (7-18) 37 MG/DL (7-18) Creatinine 0.86 MG/DL (0.50-1.00) 0.86 MG/DL (0.50-1.00) 0.75 MG/DL (0.50-1.00) Random Glucose 192 MG/DL (74-106) 205 MG/DL (74-106) 181 MG/DL (74-106) Calcium Level 8.7 MG/DL (8.5-10.1) 8.4 MG/DL (8.5-10.1) 8.5 MG/DL (8.5-10.1) Sodium Level 146 MEQ/L (136-145) 147 MEQ/L (136-145) 149 MEQ/L (136-145) Potassium Level 4.0 MEQ/L (3.5-5.1) 4.3 MEQ/L (3.5-5.1) 4.3 MEQ/L (3.5-5.1) Chloride Level 112 MEQ/L (98-107) 114 MEQ/L (98-107) 115 MEQ/L (98-107) Carbon Dioxide Level 25.0 MEQ/L (21.0-32.0) 27.1 MEQ/L (21.0-32.0) 27.4 MEQ/L (21.0-32.0) Anion Gap 9 MEQ/L (5-15) 6 MEQ/L (5-15) 7 MEQ/L (5-15) Estimat Glomerular Filtration Rate 65 ML/MIN (>89) 65 ML/MIN (>89) 76 ML/MIN (>89) Result Diagram: 11/16/16 0352 11/16/16 0352 Microbiology Microbiology Date/Time Source Procedure Growth Status 11/09/16 09:58 Blood Peripheral Aerobic Blood Culture - Final NO GROWTH IN 5 DAYS Complete 11/09/16 09:58 Blood Peripheral Anaerobic Blood Culture - Final NO GROWTH IN 5 DAYS Complete 11/09/16 09:30 Sputum Endotracheal Gram Stain - Final Complete 11/09/16 09:30 Sputum Culture - Final Pseudomonas Aeruginosa Staphylococcus Aureus Complete 11/09/16 09:30 Urine Catheterized Urine Urine Culture - Final NO GROWTH IN 48 HOURS. Complete 10/28/16 17:00 Other - Final Complete . Imaging Last Impressions Chest X-Ray 11/12/16 0600 Signed Impressions: Service Date/Time: Saturday, November 12, 2016 04:11 - CONCLUSION: Right greater than left airspace disease modestly worse. Keshav Burks MD Cervical Spine MRI 11/06/16 0000 Signed Impressions: Service Date/Time: Sunday, November 06, 2016 21:36 - CONCLUSION: 1. Multilevel degenerative changes of the cervical spine as above, especially C5/ C6 and C6/C7. 2. Mild to moderate spinal stenosis and severe right foraminal stenosis at C5/C6. 3. Mild spinal stenosis and moderate right foraminal stenosis at C6/C7. 4. No cord compression or cord signal abnormality. 5. No fracture or subluxation. 6. Large nodule of the left lobe of the thyroid gland. There are also upper limits of normal bilateral cervical lymph nodes. Keshav Burks MD Brain MRI 11/06/16 0000 Signed Impressions: Service Date/Time: Sunday, November 06, 2016 21:36 - CONCLUSION: 1. No change or acute abnormality demonstrated. 2. Atrophy, ventriculomegaly and chronic white matter changes are again noted. Keshav Burks MD Thyroid Ultrasound 10/31/16 0000 Signed Impressions: Service Date/Time: Monday, October 31, 2016 11:47 - CONCLUSION: Large complex mass right lobe of the thyroid. Minimally increased in size since Jacoby Torre MD FACR Abdomen X-Ray 10/29/16 0000 Signed Impressions: Service Date/Time: Saturday, October 29, 2016 15:32 - CONCLUSION: Negative for radiopaque foreign bodies. Jacoby Torre MD FACR Chest CT 10/28/16 1814 Signed Impressions: Service Date/Time: Friday, October 28, 2016 18:28 - CONCLUSION: 1. Abnormality on chest radiograph corresponds to a 3.4 x 3.5 cm central right hilar mass/adenopathy with associated postobstructive airspace consolidation in the inferior right upper lobe. There are at least 2 additional pulmonary nodules measuring 13 x 8 mm in the anterior right middle lobe and 8 x 8 mm in the anterior right upper lobe near the apex. 2. 3.9 x 4.3 cm heterogeneous nodule in the right thyroid gland. No significant regional cervical adenopathy. 3. Patchy bilateral lower lobe air space consolidation and diffuse ground glass opacities. Differential considerations include ARDS versus infection versus aspiration. 1. Tyler Selby MD Head CT 10/28/16 0000 Signed Impressions: Service Date/Time: Friday, October 28, 2016 20:44 - CONCLUSION: 1. No bleed or evidence of acute infarction. 2. Atrophy and chronic white matter changes. 3. Moderate ventriculomegaly, beyond that expected for the degree of atrophy. Normal pressure hydrocephalus would be in the differential. Keshav Burks MD . Procedures 11/01/16 Bronchoscopy 10/28/16 Intubated and mechanically ventilated . Assessment and Plan Disease Oriented Problem List: (1) Acute respiratory failure requiring reintubation (2) Sepsis (3) Pulmonary nodules (4) Normal pressure hydrocephalus (5) Diabetes mellitus (6) Thyroid mass Symptom Scale: (1) Shortness of breath 0-10 Scale: Unable to quantify Comment: Intubated and mechanically ventilated. . (2) Debility 0-10 Scale: Unable to quantify Comment: Resident of a long-term facility, requiring assistance with ADLs. Progressive debility. . Pertinent Non-Medical Issues Psychosocial: Patient is a resident at a [facility] care facility. As per prior medical records from 2007, patient has two sons who reside in the area. Per court appointed guardian, one son is and the other son who once served as patient`s DPOA was not fulfilling his duties and the court appointed a guardian for the patient. 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 Spiritual: Unable to obtain, patient is intubated on mechanical ventilation and sedated. Legal: Patient has a court appointed guardian. Ethical issues impacting care: Patient has a court appointed guardian.Patient has a signed DNR in 2010 by her son prior to court appointed guardian. . Important Contacts [place]- Court appointed guardian [phone] . Prognosis Ms Dalton is a 70 years old female with a medical history of diabetes mellitus, dementia, thyroid disease, anxiety, depression and hyperlipemia, and reactive airway disease. Patient presented to the ED 10/28/16 via EMS after complaining of shortness of breath. Patient was intubated and placed on mechanical ventilation secondary to acute hypoxemic respiratory failure. 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 Patient's prognosis is guarded. Patient at high risk for further complications, clinical decline and given the above. . Code Status: No Code Plan * Legal decision maker: Patient has [facility] [place] [facility]. * NO CODE - per legal recommendation to honor prior [place] DNR order. * Goals: Patient continues to fail CPAP trials. After discussion with the medical team it was determined that the patient is hospice appropriate and would benefit from transition to comfort measures with withdrawal of life support. Letter to summarize medical problems, prognosis and recommendation for comfort measures was signed by Dr. Wasserman and Dr. Stephenson and forwarded to the [facility] [place] kelly on 11/12/16. * Leticia Levine LCSW has contacted [facility] [place] [facility]. Letter from district court judge received. Tal[employer] Ac[employer] Operations Manager has stated guardian has authority to determine health care decisions for parikh, including palliative care, without court order." [employer] Operations Manager has stated "as to motion to remove life support, that motion needs to be served by information notice on next of kin and time to object allowed." * Spoke with Arun Dalton at bedside. Medical update provided including hospital course since admission, consultants, recommendations and overall poor prognosis. Son verbalizes that his mother previously stated she did not want to be kept alive by machines. He tells me that she had a previous [place] do not resuscitate order, advised him that patient has a DNR and that we have variously signed order dating back to 2010. Reviewed recommendation for transition to comfort focused care with compassionate withdrawal of life support , son confirms that this would be in keeping with the patient wishes and agrees with Guardian plans. He requests that he have a few days to contact family in case patient siblings or other family members may want to come say their goodbyes. Anticipatory guidance provided regarding withdrawal of life support, transition to comfort focused care, hospice services. He agrees. Advised that and may be to proceed with withdrawal of life support on Saturday11/19/16. He agrees to remain in contact with [place], [facility] legal guardian. He appreciates care patient has received and time spent. * Plan for transition to comfort measures with withdrawal of life support with hospice on 11/19/16. Will speak with [facility] guardian on Saturday. Son and family may be visiting over the weekend. Son agrees with guardian decision and verbalizes this would be in keeping with patient wishes. * SYMPTOMS: Respiratory distress/ dyspnea - patient remains intubated on mechanical ventilation. Patient failing CPAP trials, gets tachypneic. Sputum culture positive for Escherichia coli, ESBL positive, pseudomonas aeruginosa, methicillin-resistant staph aureus. ID following. Debility - admitted from a longterm with significant debility, she has been on bed rest, mechanically ventilated. No new medication recommendations at this time. Will assist with transition to comfort orders at the time to transition to comfort. * Palliative care will continue to follow the patient during hospital course as condition evolves, to assist patient/decision-maker with understanding of their medical conditions, weighing benefits/burdens of treatment options, for clarification of goals of treatment. Additionally will assist with any symptoms of palliative concern. . Attestation To help prompt me to consider important information that might be impacting today's encounter and assessment, information from prior notes written by myself or my colleagues may have been "brought forward" into today's note. My signature on this note, however, is an attestation that I personally performed the exam, history, and/or decision-making noted today, and, unless otherwise indicated, the interactions with patient, family, and staff as well as the review of records all occurred today. I also attest that the listed assessment and stated plan reflect my best clinical judgment today based on the combination of historical information, prior notes, and today's exam/ interactions. When time spent is documented, it refers only to time spent today by the signer, or if indicated, combined time spent today by collaborating physician/nurse practitioner. Mirlande Pak Nov 16, 2016 17:32
--- NOTE | 2016-11-16 18:07 | HHI.PR ---
Subjective Remarks 70 YOWF with VDRF,Pneumonia, ? Aspiration Off sedation Bronchial wash Sq cell ca Did't tolerate CPAP Mod amount of trach secretions. No fever Son Nils at BS, " I was not aware that she is in the hosp" Objective Vital Signs Vital Signs Date Time Temp Pulse Resp B/P (MAP) Pulse Ox O2 Delivery O2 Flow Rate FiO2 11/16/16 16:19 98 40 11/16/16 16:00 99.5 79 45 132/63 (86) 97 11/16/16 16:00 40 11/16/16 16:00 79 11/16/16 15:00 101 26 150/68 (95) 99 11/16/16 14:00 98 11/16/16 14:00 98 26 145/70 (95) 97 11/16/16 13:00 98 19 151/71 (97) 98 11/16/16 12:01 99.8 109 30 169/72 (104) 95 11/16/16 12:00 40 11/16/16 12:00 116 11/16/16 11:18 98 40 11/16/16 11:00 110 50 170/77 (108) 99 11/16/16 10:01 104 47 173/81 (111) 99 11/16/16 09:00 97 29 147/68 (94) 100 11/16/16 08:01 99.6 99 47 141/65 (90) 100 11/16/16 08:00 40 11/16/16 08:00 118 11/16/16 07:24 100 40 11/16/16 07:00 119 37 161/76 (104) 100 11/16/16 06:00 121 11/16/16 06:00 121 36 158/73 (101) 99 11/16/16 05:00 114 39 153/70 (97) 100 11/16/16 04:08 99 40 11/16/16 04:00 104 11/16/16 04:00 40 11/16/16 04:00 99.5 104 37 152/67 (95) 97 11/16/16 02:00 87 11/16/16 01:14 97 40 11/16/16 00:00 99.2 91 31 162/71 (101) 100 11/16/16 00:00 91 11/16/16 00:00 40 11/15/16 22:04 98 40 11/15/16 22:00 80 11/15/16 20:00 40 11/15/16 20:00 89 11/15/16 20:00 99.4 89 33 160/72 (101) 96 11/15/16 19:35 97 40 I/O 11/15/16 11/15/16 11/15/16 11/16/16 11/16/16 11/16/16 07:00 15:00 23:00 07:00 15:00 23:00 Intake Total 1191 ml 205 ml 801 ml 1055 ml 558 ml Output Total 600 ml 625 ml 800 ml Balance 591 ml 205 ml 176 ml 255 ml 558 ml Intake Oral 0 ml IV Total 723 ml 205 ml 200 ml 305 ml 558 ml Tube Feeding 468 ml 351 ml Other 250 ml 750 ml Output Urine Total 600 ml 625 ml 800 ml # Bowel Movements 2 6 1 Result Diagram: 11/16/16 0352 11/16/16 0352 Objective Remarks GENERAL: MBMN WF, intubated, sedated SKIN: Warm and dry. HEAD: Normocephalic. EYES: No scleral icterus. No injection or drainage. NECK: Supple, trachea midline. No JVD or lymphadenopathy. CARDIOVASCULAR: Regular rate and rhythm without murmurs, gallops, or rubs. RESPIRATORY: Breath sounds equal bilaterally. No accessory muscle use. GASTROINTESTINAL: Abdomen soft, non-tender, nondistended. MUSCULOSKELETAL: No cyanosis, or edema. BACK: Nontender without obvious deformity. No CVA tenderness. A/P Assessment and Plan VDRF Pneumonia Aspiration DM Dementia Ventriculomegaly Squamous cell ca PLAN: Vent Support -AC 14, Fi02 35% Cont Abx Aerosol nebs SQ Heparin Code status DNR Prognosis poor Awaiting decision by [facility] for withdrawl, hospice care DW Son Nils at BS. Luis Madison MD Nov 16, 2016 18:07
[2016-11-16] MEDS: DOCUSATE SODIUM 100 MG/10 ML UDC PO SCH (21:00)
[2016-11-17] VITALS (26 sets, daily range): BP systolic 132–198; BP diastolic 60–89; PULSE 77–119; RESP 26–48; TEMP 99–100.4; O2SAT 96–100
[2016-11-17] MEDS: INSULIN NovoLIN REGULAR SUPPLEMENTAL SCALE SQ SCH ×4 (02:00→20:00)
[2016-11-17] MEDS: levETIRAcetam INJ 500 MG in SODIUM CHLORIDE 0.9% INJ 100 ML IV SCH ×2 (02:26→14:02)
[2016-11-17] MEDS: RESP: ALBUTEROL 2.5 MG/IPRATROPIUM 0.5 MG NEB (SCH) NEB ×4 (03:54→20:28)
[2016-11-17] MEDS: CHLORHEXIDINE GLUCONATE 2 % 1 PACK (2 CLOTHS) TOP SCH (04:00)
[2016-11-17 05:17] LABS: HEMATOCRIT 28.4 % (35.0-46.0); MEAN CELL VOLUME 88.9 FL (80.0-100.0); MEAN CORPUSCULAR HEMOGLOBIN 29.3 PG (27.0-34.0); MEAN CORPUSCULAR HGB CONC 32.9 % (32.0-36.0); PLATELET COUNT 442 TH/MM3 (150-450); RED BLOOD COUNT 3.19 MIL/MM3 (4.00-5.30); RED CELL DISTRIBUTION WIDTH 14.3 % (11.6-17.2); REVIEW FLAG FINAL; WHITE BLOOD COUNT 9.7 TH/MM3 (4.0-11.0)
[2016-11-17 05:28] LABS: BICARBONATE 26.2 MEQ/L (21.0-32.0); POTASSIUM 4.3 MEQ/L (3.5-5.1)
[2016-11-17] MEDS: FREE WATER NG SCH ×3 (06:00→21:25)
[2016-11-17] MEDS: ARTIFICIAL TEARS OPTH SOLN 15 ML BTL EACH EYE SCH ×3 (06:00→21:25)
[2016-11-17] MEDS: cloNIDine HCL 0.3 MG TAB PO SCH ×3 (06:27→21:20)
[2016-11-17] MEDS: METOPROLOL TARTRATE 50 MG TAB PO SCH ×3 (06:27→21:20)
[2016-11-17] MEDS: MEROPENEM INJ 1,000 MG in SODIUM CHLORIDE 0.9% INJ 100 ML IV SCH ×2 (07:25→14:01)
[2016-11-17] MEDS: CHLORHEXIDINE 0.12% (ORAL KIT) 15 ML CUP MT SCH ×2 (08:00→20:00)
[2016-11-17] MEDS: MUPIROCIN 2% OINT 1 APPLIC/GM SYR EACH NARE SCH ×2 (09:00→21:20)
[2016-11-17] MEDS: INSULIN DETEMIR 100 UNITS/ML VIAL SQ SCH ×2 (09:00→21:00)
[2016-11-17] MEDS: AZTREONAM INJ 2,000 MG in SODIUM CHLORIDE 0.9% INJ 100 ML IV SCH ×2 (09:24→15:45)
[2016-11-17] MEDS: FLUCONAZOLE 100 MG TAB PO SCH (09:25)
[2016-11-17] MEDS: LACTOBACILLUS ACIDOPHILUS TAB PO SCH ×3 (09:25→18:00)
[2016-11-17] MEDS: FAMOTIDINE 20 MG TAB PO SCH ×2 (09:25→21:20)
[2016-11-17] MEDS: DOCUSATE SODIUM 100 MG/10 ML UDC PO SCH ×2 (09:25→21:00)
[2016-11-17] MEDS: HEPARIN SODIUM - SQ 10,000 UNITS/ML VIAL SQ SCH ×2 (09:25→15:44)
[2016-11-17] MEDS: SODIUM CHLORIDE 0.9% FLUSH 10 ML FLUSH IV FLUSH SCH ×2 (09:26→21:21)
--- NOTE | 2016-11-17 10:58 | HHI.IDPN ---
Subjective Subjective Remarks ID X cover for Dr Carmen summers RN + fever, low grade, just under 100 remains on vent + large amount of secretions BMs 3-7/day Antibiotics azactam meropenem Allergies: Coded Allergies: propoxyphene (Unverified Allergy, Severe, 09/25/16) amoxicillin (Verified Allergy, Unknown, 10/28/16) Objective . Vital Signs Date Time Temp Pulse Resp B/P (MAP) Pulse Ox O2 Delivery O2 Flow Rate FiO2 11/17/16 08:21 100 40 11/17/16 06:00 109 11/17/16 04:30 161/78 (105) 11/17/16 04:18 97 40 11/17/16 04:00 104 11/17/16 04:00 40 11/17/16 04:00 99.9 104 48 198/89 (125) 99 11/17/16 02:00 79 11/17/16 01:14 98 40 11/17/16 00:00 40 11/17/16 00:00 77 11/17/16 00:00 99.8 77 33 152/67 (95) 100 11/16/16 22:14 96 40 11/16/16 22:00 96 11/16/16 20:00 40 11/16/16 20:00 99.9 95 21 165/72 (103) 100 11/16/16 20:00 95 11/16/16 19:45 96 40 11/16/16 18:00 88 11/16/16 16:19 98 40 11/16/16 16:00 99.5 79 45 132/63 (86) 97 11/16/16 16:00 40 11/16/16 16:00 79 11/16/16 15:00 101 26 150/68 (95) 99 11/16/16 14:00 98 11/16/16 14:00 98 26 145/70 (95) 97 11/16/16 13:00 98 19 151/71 (97) 98 11/16/16 12:01 99.8 109 30 169/72 (104) 95 11/16/16 12:00 40 11/16/16 12:00 116 11/16/16 11:18 98 40 11/16/16 11:00 110 50 170/77 (108) 99 11/17/16 11/17/16 11/18/16 15:00 23:00 07:00 Intake Total 505 ml Balance 505 ml IV Total 505 ml . Laboratory Tests Test 11/16/16 03:52 11/17/16 04:26 White Blood Count 9.3 TH/MM3 9.7 TH/MM3 Red Blood Count 3.34 MIL/MM3 3.19 MIL/MM3 Hemoglobin 9.6 GM/DL 9.3 GM/DL Hematocrit 29.8 % 28.4 % Mean Corpuscular Volume 89.1 FL 88.9 FL Mean Corpuscular Hemoglobin 28.9 PG 29.3 PG Mean Corpuscular Hemoglobin Concent 32.4 % 32.9 % Red Cell Distribution Width 13.9 % 14.3 % Platelet Count 448 TH/MM3 442 TH/MM3 Mean Platelet Volume 8.1 FL 8.7 FL Neutrophils (%) (Auto) 61.6 % Lymphocytes (%) (Auto) 25.0 % Monocytes (%) (Auto) 7.0 % Eosinophils (%) (Auto) 5.6 % Basophils (%) (Auto) 0.8 % Neutrophils # (Auto) 5.7 TH/MM3 Lymphocytes # (Auto) 2.3 TH/MM3 Monocytes # (Auto) 0.7 TH/MM3 Eosinophils # (Auto) 0.5 TH/MM3 Basophils # (Auto) 0.1 TH/MM3 CBC Comment DIFF FINAL Differential Comment Laboratory Tests Test 11/16/16 03:52 11/17/16 04:26 Blood Urea Nitrogen 37 MG/DL 38 MG/DL Creatinine 0.75 MG/DL 0.74 MG/DL Random Glucose 181 MG/DL 242 MG/DL Calcium Level 8.5 MG/DL 8.5 MG/DL Sodium Level 149 MEQ/L 148 MEQ/L Potassium Level 4.3 MEQ/L 4.3 MEQ/L Chloride Level 115 MEQ/L 115 MEQ/L Carbon Dioxide Level 27.4 MEQ/L 26.2 MEQ/L Anion Gap 7 MEQ/L 7 MEQ/L Estimat Glomerular Filtration Rate 76 ML/MIN 77 ML/MIN Imaging Last Impressions Chest X-Ray 11/12/16 0600 Signed Impressions: Service Date/Time: Saturday, November 12, 2016 04:11 - CONCLUSION: Right greater than left airspace disease modestly worse. Keshav Burks MD Cervical Spine MRI 11/06/16 0000 Signed Impressions: Service Date/Time: Sunday, November 06, 2016 21:36 - CONCLUSION: 1. Multilevel degenerative changes of the cervical spine as above, especially C5/ C6 and C6/C7. 2. Mild to moderate spinal stenosis and severe right foraminal stenosis at C5/C6. 3. Mild spinal stenosis and moderate right foraminal stenosis at C6/C7. 4. No cord compression or cord signal abnormality. 5. No fracture or subluxation. 6. Large nodule of the left lobe of the thyroid gland. There are also upper limits of normal bilateral cervical lymph nodes. Keshav Burks MD Brain MRI 11/06/16 0000 Signed Impressions: Service Date/Time: Sunday, November 06, 2016 21:36 - CONCLUSION: 1. No change or acute abnormality demonstrated. 2. Atrophy, ventriculomegaly and chronic white matter changes are again noted. Keshav Burks MD Thyroid Ultrasound 10/31/16 0000 Signed Impressions: Service Date/Time: Monday, October 31, 2016 11:47 - CONCLUSION: Large complex mass right lobe of the thyroid. Minimally increased in size since Jacoby Torre MD FACR Abdomen X-Ray 10/29/16 0000 Signed Impressions: Service Date/Time: Saturday, October 29, 2016 15:32 - CONCLUSION: Negative for radiopaque foreign bodies. Jacoby Torre MD FACR Chest CT 10/28/161813 Signed Impressions: Service Date/Time: Friday, October 28, 2016 18:28 - CONCLUSION: 1. Abnormality on chest radiograph corresponds to a 3.4 x 3.5 cm central right hilar mass/adenopathy with associated postobstructive airspace consolidation in the inferior right upper lobe. There are at least 2 additional pulmonary nodules measuring 13 x 8 mm in the anterior right middle lobe and 8 x 8 mm in the anterior right upper lobe near the apex. 2. 3.9 x 4.3 cm heterogeneous nodule in the right thyroid gland. No significant regional cervical adenopathy. 3. Patchy bilateral lower lobe air space consolidation and diffuse ground glass opacities. Differential considerations include ARDS versus infection versus aspiration. 1. Tyler Selby MD Head CT 10/28/16 0000 Signed Impressions: Service Date/Time: Friday, October 28, 2016 20:44 - CONCLUSION: 1. No bleed or evidence of acute infarction. 2. Atrophy and chronic white matter changes. 3. Moderate ventriculomegaly, beyond that expected for the degree of atrophy. Normal pressure hydrocephalus would be in the differential. Keshav Burks MD Physical Exam PHYSICAL EXAMINATION GENERAL: On the ventilator. In acute resp distress. HEENT: non icteric oral mucosae moist NECK: Obese, fullness at the right lateral neck. LUNGS: disffuse rhonchi; quite achypneic HEART: tachycardic, S1S2, No audible murmurs or rubs or gallops. ABDOMEN: Obese, soft, No tenderness. EXTREMITIES: No clubbing or cyanosis + diffuse generalysed soft pitting 2+ edema. SKIN: No rash. : wynne i place with clear yellow urione NEURO: Awake, tracks, mouthing words but not communicating; Not following commands. PSYCHE: appears calm Assessment & Plan Remarks IMPRESSION 1. Bilateral Pneumonia with hilar cavitary mass. Pseudomonas (R imipnem) and ESBL e. coli in sputum. Squamous cell cancer. 2. Acute respiratory failure, failure to wean - failed CPAP again 3. Candiduria ; repaet urine clx negative 4. Fever and increased WBC. - fever resolved; WBC improving Critically ill and stable Diarrhea, abx associated RECOMMENDATIONS 1. Continue aztreonam. 2. cont Meropenem. 3. dc Diflucan. Non crypto yeast in bronch. Doubt clin significance. 4. Awaiting decision on comfort care; planned on Saturday, pending family decision 5. If cont to have diarrhea chk stool for c.diff dw Makenzie Mckenzie MD Nov 17, 2016 10:57
[2016-11-17] MEDS ORDERED: hydrALAZINE HCL 20 MG/ML VIAL IV PUSH PRN (13:00)
--- NOTE | 2016-11-17 13:15 | HHI.CCPN ---
Subjective Remarks/Hospital Course HPI 70-year-old senior care resident with a medical history significant for dementia, diabetes mellitus, hyperlipidemia, reactive airway disease who was found to have altered mental status at the senior care for which EMS was called. Patient was noted to have O2 sats in the 70s. She was very apneic with her head slumped down. Paramedics report of having to hold her head up to have her breathe with the nebulizer treatment in place. Patient was given Solu- Medrol 125 mg IV and 4 nebulizer treatments prior to arrival in the ER for documentation. On arrival in the ER patient was extremely lethargic however was reportedly able to answer some questions. Patient was felt not to be able to protect her airway as well as very hypoxic and hence was intubated by ER physician and placed on mechanical ventilation. Chest x-ray in the ER showed bilateral infiltrates and possible cavitary lesion. She was accepted for admission by critical care medicine service. CT chest was ordered by ER physician. When I evaluated the patient in the ER she was sedated with propofol , orally intubated on mechanical ventilation. History was obtained by reviewing records and discussion with ER physician. 10/29 Patient is sedated with Diprivan and intubated. Afebrile. 10/30 Patient remains sedated and intubated. T:99.7 last night. 10/31: Intubated sedated. CT reviewed and discussed with Dr. Madison. Will consider Bronch. Also check thyroid US and possible biopsy. Check thyroid studies. Also consult palliative care as patient has underlying dementia with NPH and possible malignancy. 11/01: Tmax 100.3. Plan for bronchoscopy at 3:00 today. Noted thyroid masses chronic/since 2011. Tolerating tube feeding. Positive BM. 11/02: Tmax 100.1. Status post bronchoscopy yesterday with removal of mucous plugging. Tolerating tube feeds. Positive BM. Weaning propofol sedation today. 11/03: Tmax 100.6. Noted elevated leukocytosis. Weaning sedation. Positive BM. Tolerate tube feeding. 11/04: Afebrile. UA negative. C. difficile pending. 4 bowel movement overnight. Tolerating tube feeding. No new issues. 11/05 Patient is sedated with Diprivan and intubated. T:100.7. Given Labetalol 10mg IV x3 for hypertension overnight. 11/06 No events overnight. Off sedation. T: 101.5 last night. 11/07: Tmax 102. Currently 100.6. Continues off sedation. Eyes are open to voice but not falling commands. Noted MRI brain unchanged. MRI C-spine revealed no cord compression or cord abnormality's. Severe C5/6 right foraminal narrowing 11/08: Remains intubated sedated, intermittently opens eyes. Per palliative care , health service worker requesting letter of certification from treatment team. Prior to making a decision to withdraw from life support, the health service worker is requesting a letter from the covering physicians certifying that she is hospice appropriate and palliative rather than aggressive treatment is appropriate. Dr. Madison thinks hospice is appropriate but also recommends Oncology input. I have consulted medical oncology 11/09 Patient remains intubated, on no sedation, Tmax 103.1 gets tachypneic with CPAP trials 11/10 Patient is intubated had T:100.3 last night. Doesn't follow commands. 10 No events overnight. Placed on Precedex drip yesterday to facilitate with weaning trials. T: 99.7. Awake looking around with her eyes but does not following commands. 11/12 Patient remains intubated. On Precedex drip. Did not tolerate CPAP trials yesterday. 11/13 No events overnight. Intubated doesn't tolerate CPAP trials. T:100.5 last night. 11/14 Patient remains intubated. Off sedation. T;100.1 11/15 No events overnight. Intubated. T:100.8 last night. 11/16: Tmax 99.5. Currently resting in bed in no acute distress. Eyes are open but does not follow commands. Off all sedation. Tolerating tube feeding. Positive BM. Subjective 11/17: Tmax 100.1. Resting blood eyes open not falling commands. Off all sedation. Tolerating tube feeds. Intermittently hypertensive. Objective Vital Signs Date Time Temp Pulse Resp B/P (MAP) Pulse Ox O2 Delivery O2 Flow Rate FiO2 11/17/16 12:00 107 11/17/16 12:00 99.8 26 190/84 (119) 100 11/17/16 12:00 40 Intake and Output 11/17/16 11/17/16 11/18/16 08:00 16:00 00:00 Intake Total 1697 ml Output Total 750 ml Balance 947 ml Result Diagram: 11/17/16 0426 11/17/16 0426 Other Results Microbiology Date/Time Source Procedure Growth Status 11/09/16 09:58 Blood Peripheral Aerobic Blood Culture - Final NO GROWTH IN 5 DAYS Complete 11/09/16 09:58 Blood Peripheral Anaerobic Blood Culture - Final NO GROWTH IN 5 DAYS Complete 11/09/16 09:30 Sputum Endotracheal Gram Stain - Final Complete 11/09/16 09:30 Sputum Culture - Final Pseudomonas Aeruginosa Staphylococcus Aureus Complete 11/09/16 09:30 Urine Catheterized Urine Urine Culture - Final NO GROWTH IN 48 HOURS. Complete 10/28/16 17:00 Other - Final Complete Imaging Last Impressions Chest X-Ray 11/12/16 0600 Signed Impressions: Service Date/Time: Saturday, November 12, 2016 04:11 - CONCLUSION: Right greater than left airspace disease modestly worse. Keshav Burks MD Cervical Spine MRI 11/06/16 0000 Signed Impressions: Service Date/Time: Sunday, November 06, 2016 21:36 - CONCLUSION: 1. Multilevel degenerative changes of the cervical spine as above, especially C5/ C6 and C6/C7. 2. Mild to moderate spinal stenosis and severe right foraminal stenosis at C5/C6. 3. Mild spinal stenosis and moderate right foraminal stenosis at C6/C7. 4. No cord compression or cord signal abnormality. 5. No fracture or subluxation. 6. Large nodule of the left lobe of the thyroid gland. There are also upper limits of normal bilateral cervical lymph nodes. Keshav Burks MD Brain MRI 11/06/16 0000 Signed Impressions: Service Date/Time: Sunday, November 06, 2016 21:36 - CONCLUSION: 1. No change or acute abnormality demonstrated. 2. Atrophy, ventriculomegaly and chronic white matter changes are again noted. Keshav Burks MD Thyroid Ultrasound 10/31/16 0000 Signed Impressions: Service Date/Time: Monday, October 31, 2016 11:47 - CONCLUSION: Large complex mass right lobe of the thyroid. Minimally increased in size since Jacoby Torre MD FACR Abdomen X-Ray 10/29/16 0000 Signed Impressions: Service Date/Time: Saturday, October 29, 2016 15:32 - CONCLUSION: Negative for radiopaque foreign bodies. Jacoby Torre MD FACR Chest CT 10/28/161813 Signed Impressions: Service Date/Time: Friday, October 28, 2016 18:28 - CONCLUSION: 1. Abnormality on chest radiograph corresponds to a 3.4 x 3.5 cm central right hilar mass/adenopathy with associated postobstructive airspace consolidation in the inferior right upper lobe. There are at least 2 additional pulmonary nodules measuring 13 x 8 mm in the anterior right middle lobe and 8 x 8 mm in the anterior right upper lobe near the apex. 2. 3.9 x 4.3 cm heterogeneous nodule in the right thyroid gland. No significant regional cervical adenopathy. 3. Patchy bilateral lower lobe air space consolidation and diffuse ground glass opacities. Differential considerations include ARDS versus infection versus aspiration. 1. Tyler Selby MD Head CT 10/28/16 0000 Signed Impressions: Service Date/Time: Friday, October 28, 2016 20:44 - CONCLUSION: 1. No bleed or evidence of acute infarction. 2. Atrophy and chronic white matter changes. 3. Moderate ventriculomegaly, beyond that expected for the degree of atrophy. Normal pressure hydrocephalus would be in the differential. Keshav Burks MD Objective Remarks GENERAL: 71-year-old female, critically ill currently orotracheally intubated SKIN: Warm and dry. HEAD: Atraumatic. Normocephalic. EYES: Pupils equal and round about 3 mm bilaterally and reactive. No scleral icterus. No injection or drainage. ENT: No nasal bleeding or discharge. Orotracheally intubated NECK: Trachea midline. No JVD. Right-sided thyromegaly/palpable mass noted CARDIOVASCULAR: Tachycardic, RR. S1, S2 no S4. Without murmur RESPIRATORY: Coarse crackles appreciated bilaterally. GASTROINTESTINAL: Abdomen soft, non-tender, nondistended. Hepatic and splenic margins not palpable. MUSCULOSKELETAL: Extremities bilateral trace nonpitting lower extremity edema. No obvious deformities. NEUROLOGICAL: Positive gag. Positive corneal reflex. Not following commands upper or lower extremity. Upward toes. A/P Assessment and Plan Neuro/Psych: Depression/anxiety Toxic metabolic encephalopathy Ventriculomegaly History of dementia Off all sedation, monitor neuro status. Patient does not follow commands. EEG 11/06 revealed triphasic sway/diffuse sharp waves likely moderate encephalopathy cannot rule out proclivity of seizure Neuro eval for encephalopathy with Dr. Sampson CT brain: Moderate ventriculomegaly, beyond that expected for the degree of atrophy. MRI confirms. Neurosurgery has followed- Dr. Hernandez No acute intervention Repeat MRI brain 11/06 stable for ventriculomegaly. No other acute findings Currently holding home medications clonazepam 0.5 mg twice a day and quetiapine 25 mg at night On levetiracetam 500 mg IV twice a day per neurology's EEG above As needed fentanyl 50 every 2 hours when necessary pain CV: Hypertension Dyslipidemia On Lopressor 50mg Q8, amlodipine 10mg daily, Clonidine 0.3mg Q8 Monitor HR and BP keep MAP>65mmHg Home medication for hypertension include amlodipine 10 mg by mouth daily and carvedilol 25 mg by mouth twice a day As needed hydralazine and labetalol and Nitropaste for hypertension Currently holding atorvastatin 40 mg by mouth daily for dyslipidemia. Pulm Acute hypoxemic respiratory failure possibly secondary to post obstructive pneumonia Squamous cell carcinoma of Lung PRVC 12/500/0//. Ventilator bundle Albuterol/ipratropium aerosols every 6 hours with albuterol aerosols every [address] chest reviewed revealed 3.4 x 2.5 right hilar mass with post discharge pneumonia in the right upper lobe. Right middle lobe mass. Pulm is following- Dr. Madison, s/p bronch with BAL 11/01. Cytology positive ( squamous cell carcinoma) Renal/: Hypernatremia - resolved Monitor renal function, I/O's, electrolytes replacement per protocol. free water 250 cc every 8 hours tube feeds GI/liver: Mild protein calorie malnutrition Continue with Glucerna 1.5 at 40 cc an hour On famotidine 20mg BID for GI prophylaxis Docusate sodium 100 mg twice a day for bowel regimen ID: Escherichia coli UTI Postobstructive pneumonia Continue with abx per ID (fluconazole, aztreonam, meropenem) monitor for signs of infections ( Fever, WBC). Recheck sputum cx Sputum cx 11/09: Pseudomonas, Staph Aureus Follow up on cultures and bronchoscopy 11/01- Yeast species BC 11/04: NGTD Blood cultures 2 - 11/06 - NGTD Sputum 11/06 ESBL E Coli, PSAE, Staph. Strep pneumonia urinary Ag negative. ID is following- Dr. 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 Patient has hilar mass with pulmonary nodules, also thyroid mass. Seen by Oncology-Dr. Xavier patient is not candidate for surgery, chemo radiation give poor performance status, hospice was recommended. Palliative care is following Endocrine: Diabetes mellitus Right thyroid mass 6.8 cm/chronic Increase detemir 20 units Q12 On SSI medium scale Novulin R for glycemic control. Patient is on insulin glargine at home Prophylaxis: Famotidine 20 mg twice a day via OG tube, SCDs/subcutaneous heparin Level II follow-up Niraj Mallyo MD Nov 17, 2016 13:15
[2016-11-18] VITALS (27 sets, daily range): BP systolic 150–190; BP diastolic 72–87; PULSE 87–115; RESP 18–26; TEMP 98.4–99.5; O2SAT 94–100
[2016-11-18] MEDS: AZTREONAM INJ 2,000 MG in SODIUM CHLORIDE 0.9% INJ 100 ML IV SCH ×4 (00:14→23:44)
[2016-11-18] MEDS: HEPARIN SODIUM - SQ 10,000 UNITS/ML VIAL SQ SCH ×4 (00:14→23:44)
[2016-11-18] MEDS: MEROPENEM INJ 1,000 MG in SODIUM CHLORIDE 0.9% INJ 100 ML IV SCH ×4 (00:14→23:44)
[2016-11-18] MEDS: LABETALOL HCL 100 MG/20 ML VIAL IV PUSH PRN (00:44)
[2016-11-18] MEDS: INSULIN NovoLIN REGULAR SUPPLEMENTAL SCALE SQ SCH ×4 (02:00→20:00)
[2016-11-18] MEDS: levETIRAcetam INJ 500 MG in SODIUM CHLORIDE 0.9% INJ 100 ML IV SCH ×2 (03:30→14:53)
[2016-11-18] MEDS: CHLORHEXIDINE GLUCONATE 2 % 1 PACK (2 CLOTHS) TOP SCH (04:00)
[2016-11-18] MEDS: RESP: ALBUTEROL 2.5 MG/IPRATROPIUM 0.5 MG NEB (SCH) NEB ×4 (04:06→20:07)
[2016-11-18 04:24] LABS: HEMATOCRIT 29.3 % (35.0-46.0); MEAN CELL VOLUME 88.8 FL (80.0-100.0); MEAN CORPUSCULAR HEMOGLOBIN 28.6 PG (27.0-34.0); MEAN CORPUSCULAR HGB CONC 32.2 % (32.0-36.0); PLATELET COUNT 452 TH/MM3 (150-450); RED BLOOD COUNT 3.29 MIL/MM3 (4.00-5.30); RED CELL DISTRIBUTION WIDTH 14.7 % (11.6-17.2); REVIEW FLAG FINAL; WHITE BLOOD COUNT 11.9 TH/MM3 (4.0-11.0)
[2016-11-18 04:47] LABS: BICARBONATE 26.2 MEQ/L (21.0-32.0); POTASSIUM 4.4 MEQ/L (3.5-5.1)
--- NOTE | 2016-11-18 04:55 | RADRPT ---
EXAM DATE/TIME: 11/18/2016 04:04 [facility] COMPARISON: CHEST SINGLE AP, November 12, 2016, 4:11. INDICATIONS : Shortness of breath, possible pulmonary disease. MEDICAL HISTORY : Hypertension. Diabetes mellitus type II. SURGICAL HISTORY : None. ENCOUNTER: Subsequent ACUITY: 2 weeks PAIN SCORE: Non-responsive. LOCATION: Bilateral chest FINDINGS: A single portable frontal view of the chest shows some improvement in the diffuse bilateral pulmonary infiltrates. Infiltrates do persist bilaterally. No effusions. Heart is mildly enlarged. Aorta is ca lcified. Tip of the endotracheal tube 4 cm proximal to the radhika. Tip of the nasogastric tube course s off the inferior margin of the film. Old trauma involving right upper ribs. Suspected free bodies i nvolving the right shoulder joint. CONCLUSION: Some improvement involving the diffuse bilateral pulmonary infiltrates. Eric Levine Jr., MD on November 18, 2016 at 4:53 Board Certified Radiologist. This report was verified electronically.
[2016-11-18] MEDS: cloNIDine HCL 0.3 MG TAB PO SCH ×3 (05:46→21:04)
[2016-11-18] MEDS: METOPROLOL TARTRATE 50 MG TAB PO SCH ×3 (05:46→21:05)
[2016-11-18] MEDS: ARTIFICIAL TEARS OPTH SOLN 15 ML BTL EACH EYE SCH ×3 (05:48→21:06)
[2016-11-18] MEDS: FREE WATER NG SCH ×3 (05:48→21:05)
[2016-11-18] MEDS: FAMOTIDINE 20 MG TAB PO SCH ×2 (08:52→21:05)
[2016-11-18] MEDS: LACTOBACILLUS ACIDOPHILUS TAB PO SCH ×3 (08:52→18:00)
[2016-11-18] MEDS: CHLORHEXIDINE 0.12% (ORAL KIT) 15 ML CUP MT SCH ×2 (08:52→21:06)
[2016-11-18] MEDS: DOCUSATE SODIUM 100 MG/10 ML UDC PO SCH ×2 (08:53→21:04)
[2016-11-18] MEDS: INSULIN DETEMIR 100 UNITS/ML VIAL SQ SCH ×2 (08:53→21:05)
[2016-11-18] MEDS: SODIUM CHLORIDE 0.9% FLUSH 10 ML FLUSH IV FLUSH SCH ×2 (08:53→21:05)
[2016-11-18] MEDS: MUPIROCIN 2% OINT 1 APPLIC/GM SYR EACH NARE SCH ×2 (09:00→21:05)
--- NOTE | 2016-11-18 16:56 | HHI.CCPN ---
Subjective Remarks/Hospital Course HPI 70-year-old halfway resident with a medical history significant for dementia, diabetes mellitus, hyperlipidemia, reactive airway disease who was found to have altered mental status at the halfway for which EMS was called. Patient was noted to have O2 sats in the 70s. She was very apneic with her head slumped down. Paramedics report of having to hold her head up to have her breathe with the nebulizer treatment in place. Patient was given Solu- Medrol 125 mg IV and 4 nebulizer treatments prior to arrival in the ER for documentation. On arrival in the ER patient was extremely lethargic however was reportedly able to answer some questions. Patient was felt not to be able to protect her airway as well as very hypoxic and hence was intubated by ER physician and placed on mechanical ventilation. Chest x-ray in the ER showed bilateral infiltrates and possible cavitary lesion. She was accepted for admission by critical care medicine service. CT chest was ordered by ER physician. When I evaluated the patient in the ER she was sedated with propofol , orally intubated on mechanical ventilation. History was obtained by reviewing records and discussion with ER physician. 10/29 Patient is sedated with Diprivan and intubated. Afebrile. 10/30 Patient remains sedated and intubated. T:99.7 last night. 10/31: Intubated sedated. CT reviewed and discussed with Dr. Madison. Will consider Bronch. Also check thyroid US and possible biopsy. Check thyroid studies. Also consult palliative care as patient has underlying dementia with NPH and possible malignancy. 11/01: Tmax 100.3. Plan for bronchoscopy at 3:00 today. Noted thyroid masses chronic/since 2011. Tolerating tube feeding. Positive BM. 11/02: Tmax 100.1. Status post bronchoscopy yesterday with removal of mucous plugging. Tolerating tube feeds. Positive BM. Weaning propofol sedation today. 11/03: Tmax 100.6. Noted elevated leukocytosis. Weaning sedation. Positive BM. Tolerate tube feeding. 11/04: Afebrile. UA negative. C. difficile pending. 4 bowel movement overnight. Tolerating tube feeding. No new issues. 11/05 Patient is sedated with Diprivan and intubated. T:100.7. Given Labetalol 10mg IV x3 for hypertension overnight. 11/06 No events overnight. Off sedation. T: 101.5 last night. 11/07: Tmax 102. Currently 100.6. Continues off sedation. Eyes are open to voice but not falling commands. Noted MRI brain unchanged. MRI C-spine revealed no cord compression or cord abnormality's. Severe C5/6 right foraminal narrowing 11/08: Remains intubated sedated, intermittently opens eyes. Per palliative care , packaging sales representative requesting letter of certification from treatment team. Prior to making a decision to withdraw from life support, the packaging sales representative is requesting a letter from the covering physicians certifying that she is hospice appropriate and palliative rather than aggressive treatment is appropriate. Dr. Madison thinks hospice is appropriate but also recommends Oncology input. I have consulted medical oncology 11/09 Patient remains intubated, on no sedation, Tmax 103.1 gets tachypneic with CPAP trials 11/10 Patient is intubated had T:100.3 last night. Doesn't follow commands. 11/11 No events overnight. Placed on Precedex drip yesterday to facilitate with weaning trials. T: 99.7. Awake looking around with her eyes but does not following commands. 11/12 Patient remains intubated. On Precedex drip. Did not tolerate CPAP trials yesterday. 11/13 No events overnight. Intubated doesn't tolerate CPAP trials. T:100.5 last night. 11/14 Patient remains intubated. Off sedation. T;100.1 11/15 No events overnight. Intubated. T:100.8 last night. 11/16: Tmax 99.5. Currently resting in bed in no acute distress. Eyes are open but does not follow commands. Off all sedation. Tolerating tube feeding. Positive BM. 11/17: Tmax 100.1. Resting blood eyes open not falling commands. Off all sedation. Tolerating tube feeds. Intermittently hypertensive. Subjective 11/18: Tmax 99.5. Moving head back and forth and following commands weakly with bilateral upper extremities. Tolerating tube feeds. Off all sedation 7 days. Objective Vital Signs Date Time Temp Pulse Resp B/P (MAP) Pulse Ox O2 Delivery O2 Flow Rate FiO2 11/18/16 16:03 94 40 11/18/16 16:00 99.5 94 25 150/73 (98) Intake and Output 11/18/16 11/18/16 11/19/16 08:00 16:00 00:00 Intake Total 1614 ml Output Total 950 ml Balance 664 ml Result Diagram: 11/18/16 03311/18/16 033 Other Results Microbiology Date/Time Source Procedure Growth Status 11/09/16 09:58 Blood Peripheral Aerobic Blood Culture - Final NO GROWTH IN 5 DAYS Complete 11/09/16 09:58 Blood Peripheral Anaerobic Blood Culture - Final NO GROWTH IN 5 DAYS Complete 11/09/16 09:30 Sputum Endotracheal Gram Stain - Final Complete 11/09/16 09:30 Sputum Culture - Final Pseudomonas Aeruginosa Staphylococcus Aureus Complete 11/09/16 09:30 Urine Catheterized Urine Urine Culture - Final NO GROWTH IN 48 HOURS. Complete 10/28/16 17:00 Other - Final Complete Imaging Last Impressions Chest X-Ray 11/18/16 0600 Signed Impressions: Service Date/Time: Friday, November 18, 2016 04:04 - CONCLUSION: Some improvement involving the diffuse bilateral pulmonary infiltrates. Eric Levine Jr., MD Cervical Spine MRI 11/06/16 0000 Signed Impressions: Service Date/Time: Sunday, November 06, 2016 21:36 - CONCLUSION: 1. Multilevel degenerative changes of the cervical spine as above, especially C5/ C6 and C6/C7. 2. Mild to moderate spinal stenosis and severe right foraminal stenosis at C5/C6. 3. Mild spinal stenosis and moderate right foraminal stenosis at C6/C7. 4. No cord compression or cord signal abnormality. 5. No fracture or subluxation. 6. Large nodule of the left lobe of the thyroid gland. There are also upper limits of normal bilateral cervical lymph nodes. Keshav Burks MD Brain MRI 11/06/16 0000 Signed Impressions: Service Date/Time: Sunday, November 06, 2016 21:36 - CONCLUSION: 1. No change or acute abnormality demonstrated. 2. Atrophy, ventriculomegaly and chronic white matter changes are again noted. Keshav Burks MD Thyroid Ultrasound 10/31/16 0000 Signed Impressions: Service Date/Time: Monday, October 31, 2016 11:47 - CONCLUSION: Large complex mass right lobe of the thyroid. Minimally increased in size since Jacoby Torre MD FACR Abdomen X-Ray 10/29/16 0000 Signed Impressions: Service Date/Time: Saturday, October 29, 2016 15:32 - CONCLUSION: Negative for radiopaque foreign bodies. Jacoby Torre MD FACR Chest CT 10/28/16 1814 Signed Impressions: Service Date/Time: Friday, October 28, 2016 18:28 - CONCLUSION: 1. Abnormality on chest radiograph corresponds to a 3.4 x 3.5 cm central right hilar mass/adenopathy with associated postobstructive airspace consolidation in the inferior right upper lobe. There are at least 2 additional pulmonary nodules measuring 13 x 8 mm in the anterior right middle lobe and 8 x 8 mm in the anterior right upper lobe near the apex. 2. 3.9 x 4.3 cm heterogeneous nodule in the right thyroid gland. No significant regional cervical adenopathy. 3. Patchy bilateral lower lobe air space consolidation and diffuse ground glass opacities. Differential considerations include ARDS versus infection versus aspiration. 1. Tyler Selby MD Head CT 10/28/16 0000 Signed Impressions: Service Date/Time: Friday, October 28, 2016 20:44 - CONCLUSION: 1. No bleed or evidence of acute infarction. 2. Atrophy and chronic white matter changes. 3. Moderate ventriculomegaly, beyond that expected for the degree of atrophy. Normal pressure hydrocephalus would be in the differential. Keshav Burks MD Objective Remarks GENERAL: 71-year-old female, critically ill currently orotracheally intubated SKIN: Warm and dry. HEAD: Atraumatic. Normocephalic. EYES: Pupils equal and round about 3 mm bilaterally and reactive. No scleral icterus. No injection or drainage. ENT: No nasal bleeding or discharge. Orotracheally intubated NECK: Trachea midline. No JVD. Right-sided thyromegaly/palpable mass noted CARDIOVASCULAR: Tachycardic, RR. S1, S2 no S4. Without murmur RESPIRATORY: Coarse crackles appreciated bilaterally. GASTROINTESTINAL: Abdomen soft, non-tender, nondistended. Hepatic and splenic margins not palpable. MUSCULOSKELETAL: Extremities bilateral trace nonpitting lower extremity edema. No obvious deformities. NEUROLOGICAL: Positive gag. Positive corneal reflex. Follows commands bilateral upper extremities. Moves Her head side to side purposely. A/P Assessment and Plan Neuro/Psych: Depression/anxiety Toxic metabolic encephalopathy Ventriculomegaly History of dementia Off all sedation, monitor neuro status. Patient does not follow commands. EEG 11/06 revealed triphasic sway/diffuse sharp waves likely moderate encephalopathy cannot rule out proclivity of seizure Neuro eval for encephalopathy with Dr. Sampson CT brain: Moderate ventriculomegaly, beyond that expected for the degree of atrophy. MRI confirms. Neurosurgery has followed- Dr. Hernandez No acute intervention Repeat MRI brain 11/06 stable for ventriculomegaly. No other acute findings Currently holding home medications clonazepam 0.5 mg twice a day and quetiapine 25 mg at night On levetiracetam 500 mg IV twice a day per neurology's EEG above As needed fentanyl 50 every 2 hours when necessary pain CV: Hypertension Dyslipidemia On Lopressor 50mg Q8, amlodipine 10mg daily, Clonidine 0.3mg Q8 Monitor HR and BP keep MAP>65mmHg Home medication for hypertension include amlodipine 10 mg by mouth daily and carvedilol 25 mg by mouth twice a day As needed hydralazine and labetalol and Nitropaste for hypertension Currently holding atorvastatin 40 mg by mouth daily for dyslipidemia. Pulm Acute hypoxemic respiratory failure possibly secondary to post obstructive pneumonia Squamous cell carcinoma of Lung PRVC /0//. Ventilator bundle Currently on CPAP trial 25/06 and 35% Albuterol/ipratropium aerosols every 6 hours with albuterol aerosols every [address] chest reviewed revealed 3.4 x 2.5 right hilar mass with post discharge pneumonia in the right upper lobe. Right middle lobe mass. Pulm is following- Dr. Madison, s/p bronch with BAL 11/01. Cytology positive ( squamous cell carcinoma) Renal/: Hypernatremia - resolved Monitor renal function, I/O's, electrolytes replacement per protocol. free water 250 cc every 8 hours tube feeds GI/liver: Mild protein calorie malnutrition Continue with Glucerna 1.5 at 40 cc an hour On famotidine 20mg BID for GI prophylaxis Docusate sodium 100 mg twice a day for bowel regimen ID: Escherichia coli UTI Postobstructive pneumonia Continue with abx per ID (fluconazole, aztreonam, meropenem) monitor for signs of infections ( Fever, WBC). Recheck sputum cx Sputum cx 11/09: Pseudomonas, Staph Aureus Follow up on cultures and bronchoscopy 11/01- Yeast species BC 11/04: NGTD Blood cultures 2 - 11/06 - NGTD Sputum 11/06 ESBL E Coli, PSAE, Staph. Strep pneumonia urinary Ag negative. ID is following- Dr. 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 Patient has hilar mass with pulmonary nodules, also thyroid mass. Seen by Oncology-Dr. Xavier patient is not candidate for surgery, chemo radiation give poor performance status, hospice was recommended. Palliative care is following Endocrine: Diabetes mellitus Right thyroid mass 6.8 cm/chronic Increase detemir 20 units Q12 On SSI medium scale Novulin R for glycemic control. Patient is on insulin glargine at home Prophylaxis: Famotidine 20 mg twice a day via OG tube, SCDs/subcutaneous heparin Level II follow-up Niraj Malloy MD Nov 18, 2016 16:56
[2016-11-19] VITALS (37 sets, daily range): BP systolic 118–178; BP diastolic 56–82; PULSE 66–112; RESP 17–44; TEMP 98.1–99.1; O2SAT 87–100
[2016-11-19] MEDS: INSULIN NovoLIN REGULAR SUPPLEMENTAL SCALE SQ SCH ×4 (02:00→20:31)
[2016-11-19] MEDS: PROPOFOL 1000 MG/100 ML INJ 100 ML IV PRN ×3 (02:30→20:26)
[2016-11-19] MEDS: levETIRAcetam INJ 500 MG in SODIUM CHLORIDE 0.9% INJ 100 ML IV SCH ×2 (02:34→15:32)
[2016-11-19] MEDS: CHLORHEXIDINE GLUCONATE 2 % 1 PACK (2 CLOTHS) TOP SCH (02:36)
[2016-11-19] MEDS: RESP: ALBUTEROL 2.5 MG/IPRATROPIUM 0.5 MG NEB (SCH) NEB ×4 (04:31→20:36)
--- NOTE | 2016-11-19 05:53 | RADRPT ---
EXAM DATE/TIME: 11/19/2016 03:49 [facility] COMPARISON: CHEST SINGLE AP, November 18, 2016, 4:04. INDICATIONS : Shortness of breath, possible pulmonary disease. MEDICAL HISTORY : Diabetes mellitus type II. Hypertension SURGICAL HISTORY : None. ENCOUNTER: Subsequent ACUITY: 2 weeks PAIN SCORE: Non-responsive. LOCATION: Bilateral chest FINDINGS: Endotracheal tube and nasogastric tube are stable in good position. Hazy bilateral primarily perihila r and basilar pleural-parenchymal opacities persist without significant change. Accounting for rotati on, cardiac contours are stable. CONCLUSION: No significant change Keshav Vora MD on November 19, 2016 at 5:51 Board Certified Radiologist. This report was verified electronically.
[2016-11-19] MEDS: FREE WATER NG SCH ×3 (06:00→20:25)
[2016-11-19] MEDS: METOPROLOL TARTRATE 50 MG TAB PO SCH ×3 (06:28→20:24)
[2016-11-19] MEDS: cloNIDine HCL 0.3 MG TAB PO SCH ×3 (06:28→21:31)
[2016-11-19] MEDS: ARTIFICIAL TEARS OPTH SOLN 15 ML BTL EACH EYE SCH ×3 (06:29→20:25)
[2016-11-19] MEDS: MEROPENEM INJ 1,000 MG in SODIUM CHLORIDE 0.9% INJ 100 ML IV SCH ×3 (06:32→23:22)
[2016-11-19] MEDS: AZTREONAM INJ 2,000 MG in SODIUM CHLORIDE 0.9% INJ 100 ML IV SCH ×3 (08:14→23:22)
[2016-11-19] MEDS: CHLORHEXIDINE 0.12% (ORAL KIT) 15 ML CUP MT SCH ×2 (08:14→21:31)
[2016-11-19] MEDS: SODIUM CHLORIDE 0.9% FLUSH 10 ML FLUSH IV FLUSH SCH ×2 (08:15→20:25)
[2016-11-19] MEDS: DOCUSATE SODIUM 100 MG/10 ML UDC PO SCH ×2 (08:15→20:25)
[2016-11-19] MEDS: MUPIROCIN 2% OINT 1 APPLIC/GM SYR EACH NARE SCH ×2 (08:15→20:24)
[2016-11-19] MEDS: HEPARIN SODIUM - SQ 10,000 UNITS/ML VIAL SQ SCH ×3 (08:15→23:24)
[2016-11-19] MEDS: LACTOBACILLUS ACIDOPHILUS TAB PO SCH ×3 (08:15→17:04)
[2016-11-19] MEDS: FAMOTIDINE 20 MG TAB PO SCH ×2 (08:16→20:24)
[2016-11-19] MEDS: INSULIN DETEMIR 100 UNITS/ML VIAL SQ SCH ×2 (08:16→20:26)
--- NOTE | 2016-11-19 11:05 | HHI.CCPN ---
Subjective Remarks/Hospital Course HPI 70-year-old detention resident with a medical history significant for dementia, diabetes mellitus, hyperlipidemia, reactive airway disease who was found to have altered mental status at the detention for which EMS was called. Patient was noted to have O2 sats in the 70s. She was very apneic with her head slumped down. Paramedics report of having to hold her head up to have her breathe with the nebulizer treatment in place. Patient was given Solu- Medrol 125 mg IV and 4 nebulizer treatments prior to arrival in the ER for documentation. On arrival in the ER patient was extremely lethargic however was reportedly able to answer some questions. Patient was felt not to be able to protect her airway as well as very hypoxic and hence was intubated by ER physician and placed on mechanical ventilation. Chest x-ray in the ER showed bilateral infiltrates and possible cavitary lesion. She was accepted for admission by critical care medicine service. CT chest was ordered by ER physician. When I evaluated the patient in the ER she was sedated with propofol , orally intubated on mechanical ventilation. History was obtained by reviewing records and discussion with ER physician. 10/29 Patient is sedated with Diprivan and intubated. Afebrile. 10/30 Patient remains sedated and intubated. T:99.7 last night. 10/31: Intubated sedated. CT reviewed and discussed with Dr. Madison. Will consider Bronch. Also check thyroid US and possible biopsy. Check thyroid studies. Also consult palliative care as patient has underlying dementia with NPH and possible malignancy. 11/01: Tmax 100.3. Plan for bronchoscopy at 3:00 today. Noted thyroid masses chronic/since 2011. Tolerating tube feeding. Positive BM. 11/02: Tmax 100.1. Status post bronchoscopy yesterday with removal of mucous plugging. Tolerating tube feeds. Positive BM. Weaning propofol sedation today. 11/03: Tmax 100.6. Noted elevated leukocytosis. Weaning sedation. Positive BM. Tolerate tube feeding. 11/04: Afebrile. UA negative. C. difficile pending. 4 bowel movement overnight. Tolerating tube feeding. No new issues. 11/05 Patient is sedated with Diprivan and intubated. T:100.7. Given Labetalol 10mg IV x3 for hypertension overnight. 11/06 No events overnight. Off sedation. T: 101.5 last night. 11/07: Tmax 102. Currently 100.6. Continues off sedation. Eyes are open to voice but not falling commands. Noted MRI brain unchanged. MRI C-spine revealed no cord compression or cord abnormality's. Severe C5/6 right foraminal narrowing 11/08: Remains intubated sedated, intermittently opens eyes. Per palliative care , emergency medical services coordinator requesting letter of certification from treatment team. Prior to making a decision to withdraw from life support, the emergency medical services coordinator is requesting a letter from the covering physicians certifying that she is hospice appropriate and palliative rather than aggressive treatment is appropriate. Dr. Madison thinks hospice is appropriate but also recommends Oncology input. I have consulted medical oncology 11/09 Patient remains intubated, on no sedation, Tmax 103.1 gets tachypneic with CPAP trials 11/10 Patient is intubated had T:100.3 last night. Doesn't follow commands. 11/11 No events overnight. Placed on Precedex drip yesterday to facilitate with weaning trials. T: 99.7. Awake looking around with her eyes but does not following commands. 11/12 Patient remains intubated. On Precedex drip. Did not tolerate CPAP trials yesterday. 11/13 No events overnight. Intubated doesn't tolerate CPAP trials. T:100.5 last night. 11/14 Patient remains intubated. Off sedation. T;100.1 11/15 No events overnight. Intubated. T:100.8 last night. 11/16: Tmax 99.5. Currently resting in bed in no acute distress. Eyes are open but does not follow commands. Off all sedation. Tolerating tube feeding. Positive BM. 11/17: Tmax 100.1. Resting blood eyes open not falling commands. Off all sedation. Tolerating tube feeds. Intermittently hypertensive. 11/18: Tmax 99.5. Moving head back and forth and following commands weakly with bilateral upper extremities. Tolerating tube feeds. Off all sedation 7 days. Subjective 11/19: Asynchronous with the vent. Now on propofol. Probable withdrawal of care today according to palliative care. Waiting to hear back from guardian Objective Vital Signs Date Time Temp Pulse Resp B/P (MAP) Pulse Ox O2 Delivery O2 Flow Rate FiO2 11/19/16 08:07 100 40 11/19/16 06:00 112 11/19/16 04:00 98.6 17 157/71 (99) Intake and Output 11/19/16 11/19/16 11/19/16 07:59 15:59 23:59 Intake Total 1365 ml 200 ml Output Total 1000 ml Balance 365 ml 200 ml Result Diagram: 11/18/16 03311/18/16 0333 Imaging Last Impressions Chest X-Ray 11/18/16 0600 Signed Impressions: Service Date/Time: Friday, November 18, 2016 04:04 - CONCLUSION: Some improvement involving the diffuse bilateral pulmonary infiltrates. Eric Levine Jr., MD Cervical Spine MRI 11/06/16 0000 Signed Impressions: Service Date/Time: Sunday, November 06, 2016 21:36 - CONCLUSION: 1. Multilevel degenerative changes of the cervical spine as above, especially C5/ C6 and C6/C7. 2. Mild to moderate spinal stenosis and severe right foraminal stenosis at C5/C6. 3. Mild spinal stenosis and moderate right foraminal stenosis at C6/C7. 4. No cord compression or cord signal abnormality. 5. No fracture or subluxation. 6. Large nodule of the left lobe of the thyroid gland. There are also upper limits of normal bilateral cervical lymph nodes. Keshav Burks MD Brain MRI 11/06/16 0000 Signed Impressions: Service Date/Time: Sunday, November 06, 2016 21:36 - CONCLUSION: 1. No change or acute abnormality demonstrated. 2. Atrophy, ventriculomegaly and chronic white matter changes are again noted. Keshav Burks MD Thyroid Ultrasound 10/31/16 0000 Signed Impressions: Service Date/Time: Monday, October 31, 2016 11:47 - CONCLUSION: Large complex mass right lobe of the thyroid. Minimally increased in size since Jacoby Torre MD FACR Abdomen X-Ray 10/29/16 0000 Signed Impressions: Service Date/Time: Saturday, October 29, 2016 15:32 - CONCLUSION: Negative for radiopaque foreign bodies. Jacoby Torre MD FACR Chest CT 10/28/16 181 Signed Impressions: Service Date/Time: Friday, October 28, 2016 18:28 - CONCLUSION: 1. Abnormality on chest radiograph corresponds to a 3.4 x 3.5 cm central right hilar mass/adenopathy with associated postobstructive airspace consolidation in the inferior right upper lobe. There are at least 2 additional pulmonary nodules measuring 13 x 8 mm in the anterior right middle lobe and 8 x 8 mm in the anterior right upper lobe near the apex. 2. 3.9 x 4.3 cm heterogeneous nodule in the right thyroid gland. No significant regional cervical adenopathy. 3. Patchy bilateral lower lobe air space consolidation and diffuse ground glass opacities. Differential considerations include ARDS versus infection versus aspiration. 1. Tyler Selby MD Head CT 10/28/16 0000 Signed Impressions: Service Date/Time: Friday, October 28, 2016 20:44 - CONCLUSION: 1. No bleed or evidence of acute infarction. 2. Atrophy and chronic white matter changes. 3. Moderate ventriculomegaly, beyond that expected for the degree of atrophy. Normal pressure hydrocephalus would be in the differential. Keshav Burks MD Objective Remarks GENERAL: 71-year-old female, critically ill currently orotracheally intubated, eyes open spontaneously SKIN: Warm and dry. HEAD: Atraumatic. Normocephalic. EYES: Pupils equal and round about 3 mm bilaterally and reactive. No scleral icterus. No injection or drainage. ENT: No nasal bleeding or discharge. Orotracheally intubated NECK: Trachea midline. No JVD. Right-sided thyromegaly/palpable mass noted CARDIOVASCULAR: Tachycardic, RR. S1, S2 no S4. Without murmur RESPIRATORY: Coarse crackles appreciated bilaterally. GASTROINTESTINAL: Abdomen soft, non-tender, nondistended. Hepatic and splenic margins not palpable. MUSCULOSKELETAL: Extremities bilateral trace nonpitting lower extremity edema. No obvious deformities. NEUROLOGICAL: Positive gag. Positive corneal reflex. Eyes open on propofol. Do not follow commands A/P Assessment and Plan Neuro/Psych: Depression/anxiety Toxic metabolic encephalopathy Ventriculomegaly History of dementia On propofol for vent synchrony, monitor neuro status. Patient does not follow commands. EEG 11/06 revealed triphasic sway/diffuse sharp waves likely moderate encephalopathy cannot rule out proclivity of seizure Neuro eval for encephalopathy with Dr. Sampson. CT brain: Moderate ventriculomegaly, beyond that expected for the degree of atrophy. MRI confirms. Neurosurgery has followed- Dr. Hernandez No acute intervention Repeat MRI brain 11/06 stable for ventriculomegaly. No other acute findings Currently holding home medications clonazepam 0.5 mg twice a day and quetiapine 25 mg at night On levetiracetam 500 mg IV twice a day per neurology's EEG above As needed fentanyl 50 every 2 hours when necessary pain CV: Hypertension Dyslipidemia On Lopressor 50mg Q8, amlodipine 10mg daily, Clonidine 0.3mg Q8 Monitor HR and BP keep MAP>65mmHg Home medication for hypertension include amlodipine 10 mg by mouth daily and carvedilol 25 mg by mouth twice a day As needed hydralazine and labetalol and Nitropaste for hypertension Holding atorvastatin 40 mg by mouth daily for dyslipidemia. Pulm Acute hypoxemic respiratory failure possibly secondary to post obstructive pneumonia Squamous cell carcinoma of Lung PRVC 12/500/0//. Ventilator bundle Currently on CPAP trial 25/06 and 35% Albuterol/ipratropium aerosols every 6 hours with albuterol aerosols every [address] chest reviewed revealed 3.4 x 2.5 right hilar mass with post discharge pneumonia in the right upper lobe. Right middle lobe mass. Pulm is following- Dr. Madison, s/p bronch with BAL 11/01. Cytology positive ( squamous cell carcinoma) Renal/: Hypernatremia - resolved Monitor renal function, I/O's, electrolytes replacement per protocol. Free water 250 cc every 8 hours tube feeds GI/liver: Mild protein calorie malnutrition Continue with Glucerna 1.5 at 40 cc an hour On famotidine 20mg BID for GI prophylaxis Docusate sodium 100 mg twice a day for bowel regimen ID: Escherichia coli UTI Postobstructive pneumonia Continue with abx per ID (fluconazole, aztreonam, meropenem) monitor for signs of infections ( Fever, WBC). Sputum cx 11/09: Pseudomonas, Staph Aureus Follow up on cultures and bronchoscopy 11/01- Yeast species BC 11/04: NGTD Blood cultures 2 - 11/06 - NGTD Sputum 11/06 ESBL E Coli, PSAE, Staph. Strep pneumonia urinary Ag negative. ID is following- Dr. 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 Patient has hilar mass with pulmonary nodules, also thyroid mass. Seen by Oncology-Dr. Xavier patient is not candidate for surgery, chemo radiation give poor performance status, hospice was recommended. Palliative care is following Endocrine: Diabetes mellitus Right thyroid mass 6.8 cm/chronic Detemir 20 units Q12 On SSI medium scale Novolin R for glycemic control. Patient is on insulin glargine at home Prophylaxis: Famotidine 20 mg twice a day via OG tube, SCDs/subcutaneous heparin Level II follow-up Probable withdrawal of care today according to palliative care. Waiting to hear back from guardian Trevor Parr MD Nov 19, 2016 11:05
--- NOTE | 2016-11-19 13:24 | HHI.HCPN ---
Reason for visit a. To assist with evaluation and management of symptoms including: dyspnea, debility. b. To assist medical decision maker(s) with: better understanding of current medical conditions; weighing benefits/burdens of medical treatment options; making medical treatment decisions. . Subjective/Interval History Patient seen and examined in ICU. Discussed with nurse and Dr. Parr. Patient remains in ICU on vent with labored respirations on vent. Afebrile. Labs stable. No significant change on chest xray. Overall poor prognosis. . Family/friend interactions Spoke with COA guardian, [place] Lyons, son, Arun and daughter in law outside the room. Medical update provided. All are in agreement that patient would want to transition to comfort measures with withdrawal of life support. Anticipatory guidance provided regarding withdrawal of life support. Will want hospice at the time of withdrawal and likely transfer to care center if stable for transport after withdrawal. [place] reports she need a court order for withdrawal of life support from the general manager food, will request emergency order from [employer]. She will call when order is obtained to coordinate timing. No further escalation of care in the meantime. . Advance Directives Living Will: Never completed Health Care Surrogate: Never completed Durable Power of Cloth Painter: Never completed Advance Directive Specifics Health Care Surrogate(s): Patient has a court appointed guardian, [place] [facility] - [place] Lyons. . Significant change in goals: NO CODE. awaiting court order for compassionate withdrawal of life support. Objective Vital Signs Date Time Temp Pulse Resp B/P (MAP) Pulse Ox O2 Delivery O2 Flow Rate FiO2 11/19/16 12:00 88 11/19/16 11:52 99 40 11/19/16 11:30 87 11/19/16 11:30 87 30 164/73 (103) 100 11/19/16 11:00 84 30 146/67 (93) 87 11/19/16 11:00 84 11/19/16 10:30 92 11/19/16 10:30 92 34 154/70 (98) 99 11/19/16 10:00 88 11/19/16 10:00 88 38 142/65 (90) 99 11/19/16 09:30 86 37 151/65 (93) 100 11/19/16 09:00 79 30 140/63 (88) 100 11/19/16 08:30 75 30 142/65 (90) 100 11/19/16 08:07 100 40 11/19/16 08:00 98.1 11/19/16 08:00 40 11/19/16 08:00 71 33 150/67 (94) 99 11/19/16 08:00 66 11/19/16 06:00 112 11/19/16 04:50 99 40 11/19/16 04:00 40 11/19/16 04:00 109 11/19/16 04:00 98.6 109 17 157/71 (99) 100 11/19/16 02:00 98 11/19/16 01:24 98 40 11/19/16 00:00 40 11/19/16 00:00 98.9 80 26 158/71 (100) 98 11/19/16 00:00 82 11/18/16 22:18 99 40 11/18/16 22:00 89 11/18/16 20:00 98.9 112 26 190/81 (117) 94 11/18/16 20:00 97 40 11/18/16 20:00 40 11/18/16 20:00 112 11/18/16 18:00 91 11/18/16 17:00 90 11/18/16 16:03 94 40 11/18/16 16:00 99.5 94 25 150/73 (98) 97 11/18/16 16:00 40 11/18/16 16:00 94 11/18/16 15:00 115 11/18/16 14:00 113 Intake & Output 11/19/16 11/19/16 06:59 18:59 Intake Total 1265 ml 300 ml Output Total 1000 ml Balance 265 ml 300 ml IV Total 335 ml 300 ml Tube Feeding 430 ml Other 500 ml Output Urine Total 800 ml Stool Total 200 ml Physical Exam CONSTITUTIONAL/GENERAL: This is an elderly, critically, chronically ill patient, on mech vent. TUBES/LINES/DRAINS: PIV, ETT, OGT, Jang catheter, SCDs EYES: eyes open. CARDIOVASCULAR: Regular rate and rhythm without murmurs, gallops, or rubs. RESPIRATORY/CHEST: mildly labored respirations on mech vent. GASTROINTESTINAL: Abdomen soft, round, large. No guarding. Bowel sounds present. GENITOURINARY: Without palpable bladder distension. Jang catheter in place. MUSCULOSKELETAL: Extremities without clubbing, cyanosis. Edema to bilateral extremities. No mottling or clubbing. NEUROLOGICAL: Intubated. Eyes open, biting on ET tube. Not following commands. Not responding to tactile or verbal stimuli. PSYCHIATRIC: Awake. . Diagnostic Tests Laboratory Laboratory Tests Test 11/17/16 04:26 11/18/16 03:33 11/19/16 11:50 White Blood Count 9.7 TH/MM3 (4.0-11.0) 11.9 TH/MM3 (4.0-11.0) Red Blood Count 3.19 MIL/MM3 (4.00-5.30) 3.29 MIL/MM3 (4.00-5.30) Hemoglobin 9.3 GM/DL (11.6-15.3) 9.4 GM/DL (11.6-15.3) Hematocrit 28.4 % (35.0-46.0) 29.3 % (35.0-46.0) Mean Corpuscular Volume 88.9 FL (80.0-100.0) 88.8 FL (80.0-100.0) Mean Corpuscular Hemoglobin 29.3 PG (27.0-34.0) 28.6 PG (27.0-34.0) Mean Corpuscular Hemoglobin Concent 32.9 % (32.0-36.0) 32.2 % (32.0-36.0) Red Cell Distribution Width 14.3 % (11.6-17.2) 14.7 % (11.6-17.2) Platelet Count 442 TH/MM3 (150-450) 452 TH/MM3 (150-450) Mean Platelet Volume 8.7 FL (7.0-11.0) 8.6 FL (7.0-11.0) Blood Urea Nitrogen 38 MG/DL (7-18) 34 MG/DL (7-18) Creatinine 0.74 MG/DL (0.50-1.00) 0.74 MG/DL (0.50-1.00) Random Glucose 242 MG/DL (74-106) 268 MG/DL (74-106) Calcium Level 8.5 MG/DL (8.5-10.1) 8.5 MG/DL (8.5-10.1) Sodium Level 148 MEQ/L (136-145) 147 MEQ/L (136-145) Potassium Level 4.3 MEQ/L (3.5-5.1) 4.4 MEQ/L (3.5-5.1) Chloride Level 115 MEQ/L (98-107) 113 MEQ/L (98-107) Carbon Dioxide Level 26.2 MEQ/L (21.0-32.0) 26.2 MEQ/L (21.0-32.0) Anion Gap 7 MEQ/L (5-15) 8 MEQ/L (5-15) Estimat Glomerular Filtration Rate 77 ML/MIN (>89) 77 ML/MIN (>89) Result Diagram: 11/18/1633211/18/16332 Microbiology Microbiology Date/Time Source Procedure Growth Status 11/09/16 09:58 Blood Peripheral Aerobic Blood Culture - Final NO GROWTH IN 5 DAYS Complete 11/09/16 09:58 Blood Peripheral Anaerobic Blood Culture - Final NO GROWTH IN 5 DAYS Complete 11/09/16 09:30 Sputum Endotracheal Gram Stain - Final Complete 11/09/16 09:30 Sputum Culture - Final Pseudomonas Aeruginosa Staphylococcus Aureus Complete 11/09/16 09:30 Urine Catheterized Urine Urine Culture - Final NO GROWTH IN 48 HOURS. Complete 10/28/16 17:00 Other - Final Complete Imaging Last Impressions Chest X-Ray 11/19/16 0600 Signed Impressions: Service Date/Time: Saturday, November 19, 2016 03:49 - CONCLUSION: No significant change Keshav Vora MD Cervical Spine MRI 11/06/16 0000 Signed Impressions: Service Date/Time: Sunday, November 06, 2016 21:36 - CONCLUSION: 1. Multilevel degenerative changes of the cervical spine as above, especially C5/ C6 and C6/C7. 2. Mild to moderate spinal stenosis and severe right foraminal stenosis at C5/C6. 3. Mild spinal stenosis and moderate right foraminal stenosis at C6/C7. 4. No cord compression or cord signal abnormality. 5. No fracture or subluxation. 6. Large nodule of the left lobe of the thyroid gland. There are also upper limits of normal bilateral cervical lymph nodes. Keshav Burks MD Brain MRI 11/06/16 0000 Signed Impressions: Service Date/Time: Sunday, November 06, 2016 21:36 - CONCLUSION: 1. No change or acute abnormality demonstrated. 2. Atrophy, ventriculomegaly and chronic white matter changes are again noted. Keshav Burks MD Thyroid Ultrasound 10/31/16 0000 Signed Impressions: Service Date/Time: Monday, October 31, 2016 11:47 - CONCLUSION: Large complex mass right lobe of the thyroid. Minimally increased in size since Jacoby Torre MD FACR Abdomen X-Ray 10/29/16 0000 Signed Impressions: Service Date/Time: Saturday, October 29, 2016 15:32 - CONCLUSION: Negative for radiopaque foreign bodies. Jacoby Torre MD FACR Chest CT 10/28/16 1814 Signed Impressions: Service Date/Time: Friday, October 28, 2016 18:28 - CONCLUSION: 1. Abnormality on chest radiograph corresponds to a 3.4 x 3.5 cm central right hilar mass/adenopathy with associated postobstructive airspace consolidation in the inferior right upper lobe. There are at least 2 additional pulmonary nodules measuring 13 x 8 mm in the anterior right middle lobe and 8 x 8 mm in the anterior right upper lobe near the apex. 2. 3.9 x 4.3 cm heterogeneous nodule in the right thyroid gland. No significant regional cervical adenopathy. 3. Patchy bilateral lower lobe air space consolidation and diffuse ground glass opacities. Differential considerations include ARDS versus infection versus aspiration. 1. Tyler Selby MD Head CT 10/28/16 0000 Signed Impressions: Service Date/Time: Friday, October 28, 2016 20:44 - CONCLUSION: 1. No bleed or evidence of acute infarction. 2. Atrophy and chronic white matter changes. 3. Moderate ventriculomegaly, beyond that expected for the degree of atrophy. Normal pressure hydrocephalus would be in the differential. Keshav Burks MD Procedures 11/01/16 Bronchoscopy 10/28/16 Intubated and mechanically ventilated . Assessment and Plan Disease Oriented Problem List: (1) Acute respiratory failure requiring reintubation (2) Sepsis (3) Pulmonary nodules (4) Normal pressure hydrocephalus (5) Diabetes mellitus (6) Thyroid mass Symptom Scale: (1) Shortness of breath 0-10 Scale: Unable to quantify Comment: Intubated and mechanically ventilated. . (2) Debility 0-10 Scale: Unable to quantify Comment: Resident of a long-term facility, requiring assistance with ADLs. Progressive debility. . Pertinent Non-Medical Issues Psychosocial: Patient is a resident at a terminal supervisor care facility. As per prior medical records from 2007, patient has two sons who reside in the area. Per court appointed guardian, one son is and the other son who once served as patient`s DPOA was not fulfilling his duties and the court appointed a guardian for the patient. 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 Spiritual: Unable to obtain, patient is intubated on mechanical ventilation and sedated. Legal: Patient has a court appointed guardian. Ethical issues impacting care: Patient has a court appointed guardian.Patient has a signed DNR in 2010 by her son prior to court appointed guardian. . Important Contacts [place] Lyons/[place] [facility]- Court appointed guardian [phone] . Prognosis Ms Dalton is a 70 years old female with a medical history of diabetes mellitus, dementia, thyroid disease, anxiety, depression and hyperlipemia, and reactive airway disease. Patient presented to the ED 10/28/16 via EMS after complaining of shortness of breath. Patient was intubated and placed on mechanical ventilation secondary to acute hypoxemic respiratory failure. 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 Patient's prognosis is guarded. Patient at high risk for further complications, clinical decline and given the above. . Code Status: No Code Plan * Legal decision maker: Patient has [place] Orozco. * NO CODE - per legal recommendation to honor prior [place] DNR order. * Goals: Spoke with [place] Orozco, son, Arun and daughter in law outside the room. Medical update provided. All are in agreement that patient would want to transition to comfort measures with withdrawal of life support. Anticipatory guidance provided regarding withdrawal of life support. Will want hospice at the time of withdrawal and likely transfer to care center if stable for transport after withdrawal. [place] reports she need a court order for withdrawal of life support from the general manager food, will request emergency order from [employer]. She will call when order is obtained to coordinate timing with son and hospice and COA. No further escalation of care in the meantime. * SYMPTOMS: Respiratory distress/ dyspnea - patient remains intubated on mechanical ventilation. Patient failing CPAP trials, gets tachypneic. Sputum culture positive for Escherichia coli, ESBL positive, pseudomonas aeruginosa, methicillin-resistant staph aureus. ID following. Debility - admitted from a senior living with significant debility, she has been on bed rest, mechanically ventilated. No new medication recommendations at this time. Will assist with transition to comfort orders at the time to transition to comfort. * Palliative care will continue to follow the patient during hospital course as condition evolves, to assist patient/decision-maker with understanding of their medical conditions, weighing benefits/burdens of treatment options, for clarification of goals of treatment. Additionally will assist with any symptoms of palliative concern. . Attestation To help prompt me to consider important information that might be impacting today's encounter and assessment, information from prior notes written by myself or my colleagues may have been "brought forward" into today's note. My signature on this note, however, is an attestation that I personally performed the exam, history, and/or decision-making noted today, and, unless otherwise indicated, the interactions with patient, family, and staff as well as the review of records all occurred today. I also attest that the listed assessment and stated plan reflect my best clinical judgment today based on the combination of historical information, prior notes, and today's exam/ interactions. When time spent is documented, it refers only to time spent today by the signer, or if indicated, combined time spent today by collaborating physician/nurse practitioner. Mirlande Pak Nov 19, 2016 13:24
[2016-11-19 13:26] LABS: HEMATOCRIT 27.6 % (35.0-46.0); MEAN CELL VOLUME 89.2 FL (80.0-100.0); MEAN CORPUSCULAR HEMOGLOBIN 28.6 PG (27.0-34.0); PLATELET COUNT 389 TH/MM3 (150-450); RED CELL DISTRIBUTION WIDTH 14.4 % (11.6-17.2); REVIEW FLAG FINAL; WHITE BLOOD COUNT 9.7 TH/MM3 (4.0-11.0)
[2016-11-19 14:18] LABS: BICARBONATE 26.4 MEQ/L (21.0-32.0); POTASSIUM 4.4 MEQ/L (3.5-5.1)
[2016-11-19] MEDS ORDERED: LORazepam 2 MG/ML VIAL ONE (16:46)
--- NOTE | 2016-11-19 16:48 | HHI.PR ---
Subjective Remarks 70 YOWF with VDRF,Pneumonia, ? Aspiration Bronchial wash Sq cell ca Mod amount of trach secretions. No fever Sedated with Diprivan. Objective Vital Signs Vital Signs Date Time Temp Pulse Resp B/P (MAP) Pulse Ox O2 Delivery O2 Flow Rate FiO2 11/19/16 16:00 100 11/19/16 16:00 40 11/19/16 15:54 96 40 11/19/16 15:00 101 11/19/16 15:00 171/78 (109) 11/19/16 14:30 96 11/19/16 14:30 96 41 160/70 (100) 98 11/19/16 14:00 98 11/19/16 14:00 98 37 156/72 (100) 98 11/19/16 13:30 103 42 169/81 (110) 96 11/19/16 13:00 91 29 152/71 (98) 98 11/19/16 12:42 99 27 154/66 (95) 99 11/19/16 12:31 103 30 173/81 (111) 100 11/19/16 12:30 104 32 178/82 (114) 100 11/19/16 12:00 40 11/19/16 12:00 88 35 147/68 (94) 100 11/19/16 12:00 88 11/19/16 12:00 99.0 11/19/16 11:52 99 40 11/19/16 11:30 87 11/19/16 11:30 87 30 164/73 (103) 100 11/19/16 11:00 84 30 146/67 (93) 87 11/19/16 11:00 84 11/19/16 10:30 92 11/19/16 10:30 92 34 154/70 (98) 99 11/19/16 10:00 88 11/19/16 10:00 88 38 142/65 (90) 99 11/19/16 09:30 86 37 151/65 (93) 100 11/19/16 09:00 79 30 140/63 (88) 100 11/19/16 08:30 75 30 142/65 (90) 100 11/19/16 08:07 100 40 11/19/16 08:00 98.1 11/19/16 08:00 40 11/19/16 08:00 71 33 150/67 (94) 99 11/19/16 08:00 66 11/19/16 06:00 112 11/19/16 04:50 99 40 11/19/16 04:00 40 11/19/16 04:00 109 11/19/16 04:00 98.6 109 17 157/71 (99) 100 11/19/16 02:00 98 11/19/16 01:24 98 40 11/19/16 00:00 40 11/19/16 00:00 98.9 80 26 158/71 (100) 98 11/19/16 00:00 82 11/18/16 22:18 99 40 11/18/16 22:00 89 11/18/16 20:00 98.9 112 26 190/81 (117) 94 11/18/16 20:00 97 40 11/18/16 20:00 40 11/18/16 20:00 112 11/18/16 18:00 91 11/18/16 17:00 90 I/O 11/18/16 11/18/16 11/18/16 11/19/16 11/19/16 11/19/16 07:00 15:00 23:00 07:00 15:00 23:00 Intake Total 1209 ml 405 ml 1180 ml 1265 ml 300 ml Output Total 950 ml 800 ml 1000 ml Balance 259 ml 405 ml 380 ml 265 ml 300 ml IV Total 405 ml 335 ml 300 ml Tube Feeding 459 ml 430 ml 430 ml Other 750 ml 750 ml 500 ml Output Urine Total 850 ml 700 ml 800 ml Stool Total 100 ml 100 ml 200 ml Result Diagram: 11/19/16 1150 11/19/16 115 Objective Remarks GENERAL: MBMN WF, intubated, sedated SKIN: Warm and dry. HEAD: Normocephalic. EYES: No scleral icterus. No injection or drainage. NECK: Supple, trachea midline. No JVD or lymphadenopathy. CARDIOVASCULAR: Regular rate and rhythm without murmurs, gallops, or rubs. RESPIRATORY: Breath sounds equal bilaterally. No accessory muscle use. GASTROINTESTINAL: Abdomen soft, non-tender, nondistended. MUSCULOSKELETAL: No cyanosis, or edema. BACK: Nontender without obvious deformity. No CVA tenderness. A/P Assessment and Plan VDRF Pneumonia Aspiration DM Dementia Ventriculomegaly Squamous cell ca PLAN: Vent Support -AC 12, Fi02 30% Cont Abx Aerosol nebs SQ Heparin Code status DNR Prognosis poor Awaiting decision by [facility] for withdrawl, hospice care Sedation with Diprivan. Luis Madison MD Nov 19, 2016 16:48
[2016-11-20] VITALS (18 sets, daily range): BP systolic 131–170; BP diastolic 61–78; PULSE 80–109; RESP 31–49; TEMP 98–99.1; O2SAT 95–100
[2016-11-20] MEDS: INSULIN NovoLIN REGULAR SUPPLEMENTAL SCALE SQ SCH ×4 (02:00→20:00)
[2016-11-20] MEDS: levETIRAcetam INJ 500 MG in SODIUM CHLORIDE 0.9% INJ 100 ML IV SCH ×2 (02:11→16:49)
[2016-11-20] MEDS: PROPOFOL 1000 MG/100 ML INJ 100 ML IV PRN ×3 (02:50→21:13)
[2016-11-20] MEDS: CHLORHEXIDINE GLUCONATE 2 % 1 PACK (2 CLOTHS) TOP SCH (04:00)
[2016-11-20] MEDS: RESP: ALBUTEROL 2.5 MG/IPRATROPIUM 0.5 MG NEB (SCH) NEB ×2 (04:33→08:25)
[2016-11-20] MEDS: FREE WATER NG SCH ×3 (05:49→20:19)
[2016-11-20] MEDS: MEROPENEM INJ 1,000 MG in SODIUM CHLORIDE 0.9% INJ 100 ML IV SCH (05:49)
[2016-11-20] MEDS: METOPROLOL TARTRATE 50 MG TAB PO SCH ×3 (05:49→20:19)
[2016-11-20] MEDS: cloNIDine HCL 0.3 MG TAB PO SCH ×3 (05:49→20:19)
[2016-11-20] MEDS: ARTIFICIAL TEARS OPTH SOLN 15 ML BTL EACH EYE SCH ×3 (05:50→20:19)
[2016-11-20 05:55] LABS: HEMATOCRIT 26.8 % (35.0-46.0); MEAN CELL VOLUME 89.2 FL (80.0-100.0); MEAN CORPUSCULAR HGB CONC 32.5 % (32.0-36.0); PLATELET COUNT 399 TH/MM3 (150-450); RED CELL DISTRIBUTION WIDTH 14.4 % (11.6-17.2); REVIEW FLAG FINAL; WHITE BLOOD COUNT 9.8 TH/MM3 (4.0-11.0)
[2016-11-20 06:08] LABS: BICARBONATE 27.1 MEQ/L (21.0-32.0); POTASSIUM 4.7 MEQ/L (3.5-5.1)
[2016-11-20] MEDS: INSULIN DETEMIR 100 UNITS/ML VIAL SQ SCH ×2 (09:00→20:19)
--- NOTE | 2016-11-20 09:41 | HHI.CCPN ---
Subjective Remarks/Hospital Course HPI 70-year-old [facility] resident with a medical history significant for dementia, diabetes mellitus, hyperlipidemia, reactive airway disease who was found to have altered mental status at the [facility] for which EMS was called. Patient was noted to have O2 sats in the 70s. She was very apneic with her head slumped down. Paramedics report of having to hold her head up to have her breathe with the nebulizer treatment in place. Patient was given Solu- Medrol 125 mg IV and 4 nebulizer treatments prior to arrival in the ER for documentation. On arrival in the ER patient was extremely lethargic however was reportedly able to answer some questions. Patient was felt not to be able to protect her airway as well as very hypoxic and hence was intubated by ER physician and placed on mechanical ventilation. Chest x-ray in the ER showed bilateral infiltrates and possible cavitary lesion. She was accepted for admission by critical care medicine service. CT chest was ordered by ER physician. When I evaluated the patient in the ER she was sedated with propofol , orally intubated on mechanical ventilation. History was obtained by reviewing records and discussion with ER physician. 10/29 Patient is sedated with Diprivan and intubated. Afebrile. 10/30 Patient remains sedated and intubated. T:99.7 last night. 10/31: Intubated sedated. CT reviewed and discussed with Dr. Madison. Will consider Bronch. Also check thyroid US and possible biopsy. Check thyroid studies. Also consult palliative care as patient has underlying dementia with NPH and possible malignancy. 11/01: Tmax 100.3. Plan for bronchoscopy at 3:00 today. Noted thyroid masses chronic/since 2011. Tolerating tube feeding. Positive BM. 11/02: Tmax 100.1. Status post bronchoscopy yesterday with removal of mucous plugging. Tolerating tube feeds. Positive BM. Weaning propofol sedation today. 11/03: Tmax 100.6. Noted elevated leukocytosis. Weaning sedation. Positive BM. Tolerate tube feeding. 11/04: Afebrile. UA negative. C. difficile pending. 4 bowel movement overnight. Tolerating tube feeding. No new issues. 11/05 Patient is sedated with Diprivan and intubated. T:100.7. Given Labetalol 10mg IV x3 for hypertension overnight. 11/06 No events overnight. Off sedation. T: 101.5 last night. 11/07: Tmax 102. Currently 100.6. Continues off sedation. Eyes are open to voice but not falling commands. Noted MRI brain unchanged. MRI C-spine revealed no cord compression or cord abnormality's. Severe C5/6 right foraminal narrowing 11/08: Remains intubated sedated, intermittently opens eyes. Per palliative care , commissary clerk requesting letter of certification from treatment team. Prior to making a decision to withdraw from life support, the commissary clerk is requesting a letter from the covering physicians certifying that she is hospice appropriate and palliative rather than aggressive treatment is appropriate. Dr. Madison thinks hospice is appropriate but also recommends Oncology input. I have consulted medical oncology 11/09 Patient remains intubated, on no sedation, Tmax 103.1 gets tachypneic with CPAP trials 11/10 Patient is intubated had T:100.3 last night. Doesn't follow commands. 11/11 No events overnight. Placed on Precedex drip yesterday to facilitate with weaning trials. T: 99.7. Awake looking around with her eyes but does not following commands. 11/12 Patient remains intubated. On Precedex drip. Did not tolerate CPAP trials yesterday. 11/13 No events overnight. Intubated doesn't tolerate CPAP trials. T:100.5 last night. 11/14 Patient remains intubated. Off sedation. T;100.1 11/15 No events overnight. Intubated. T:100.8 last night. 11/16: Tmax 99.5. Currently resting in bed in no acute distress. Eyes are open but does not follow commands. Off all sedation. Tolerating tube feeding. Positive BM. 11/17: Tmax 100.1. Resting blood eyes open not falling commands. Off all sedation. Tolerating tube feeds. Intermittently hypertensive. 11/18: Tmax 99.5. Moving head back and forth and following commands weakly with bilateral upper extremities. Tolerating tube feeds. Off all sedation 7 days. Subjective 11/19: Asynchronous with the vent. Now on propofol. Probable withdrawal of care today according to palliative care. Waiting to hear back from guardian 11/20: Waiting for commissary clerk's order to permit withdrawal from ventilator, and comfort measures. At this time patient is sedated with propofol. Fentanyl as needed Objective Vital Signs Date Time Temp Pulse Resp B/P (MAP) Pulse Ox O2 Delivery O2 Flow Rate FiO2 11/20/16 08:25 100 40 11/20/16 06:00 104 11/20/16 04:00 98.1 36 144/64 (90) Intake and Output 11/20/16 11/20/16 11/21/16 08:00 16:00 00:00 Intake Total 1618 ml Output Total 600 ml Balance 1018 ml Result Diagram: 11/20/16 0451 11/20/16 0451 Imaging Last Impressions Chest X-Ray 11/18/16 0600 Signed Impressions: Service Date/Time: Friday, November 18, 2016 04:04 - CONCLUSION: Some improvement involving the diffuse bilateral pulmonary infiltrates. Eric Levine Jr., MD Cervical Spine MRI 11/06/16 0000 Signed Impressions: Service Date/Time: Sunday, November 06, 2016 21:36 - CONCLUSION: 1. Multilevel degenerative changes of the cervical spine as above, especially C5/ C6 and C6/C7. 2. Mild to moderate spinal stenosis and severe right foraminal stenosis at C5/C6. 3. Mild spinal stenosis and moderate right foraminal stenosis at C6/C7. 4. No cord compression or cord signal abnormality. 5. No fracture or subluxation. 6. Large nodule of the left lobe of the thyroid gland. There are also upper limits of normal bilateral cervical lymph nodes. Keshav Burks MD Brain MRI 11/06/16 0000 Signed Impressions: Service Date/Time: Sunday, November 06, 2016 21:36 - CONCLUSION: 1. No change or acute abnormality demonstrated. 2. Atrophy, ventriculomegaly and chronic white matter changes are again noted. Keshav Burks MD Thyroid Ultrasound 10/31/16 0000 Signed Impressions: Service Date/Time: Monday, October 31, 2016 11:47 - CONCLUSION: Large complex mass right lobe of the thyroid. Minimally increased in size since Jacoby Torre MD FACR Abdomen X-Ray 10/29/16 0000 Signed Impressions: Service Date/Time: Saturday, October 29, 2016 15:32 - CONCLUSION: Negative for radiopaque foreign bodies. Jacoby Torre MD FACR Chest CT 10/28/16 1814 Signed Impressions: Service Date/Time: Friday, October 28, 2016 18:28 - CONCLUSION: 1. Abnormality on chest radiograph corresponds to a 3.4 x 3.5 cm central right hilar mass/adenopathy with associated postobstructive airspace consolidation in the inferior right upper lobe. There are at least 2 additional pulmonary nodules measuring 13 x 8 mm in the anterior right middle lobe and 8 x 8 mm in the anterior right upper lobe near the apex. 2. 3.9 x 4.3 cm heterogeneous nodule in the right thyroid gland. No significant regional cervical adenopathy. 3. Patchy bilateral lower lobe air space consolidation and diffuse ground glass opacities. Differential considerations include ARDS versus infection versus aspiration. 1. Tyler Selby MD Head CT 10/28/16 0000 Signed Impressions: Service Date/Time: Friday, October 28, 2016 20:44 - CONCLUSION: 1. No bleed or evidence of acute infarction. 2. Atrophy and chronic white matter changes. 3. Moderate ventriculomegaly, beyond that expected for the degree of atrophy. Normal pressure hydrocephalus would be in the differential. Keshav Burks MD Objective Remarks GENERAL: 71-year-old female, critically ill currently orotracheally intubated, eyes open spontaneously SKIN: Warm and dry. HEAD: Atraumatic. Normocephalic. EYES: Pupils equal and round about 3 mm bilaterally and reactive. No scleral icterus. No injection or drainage. ENT: No nasal bleeding or discharge. Orotracheally intubated NECK: Trachea midline. No JVD. Right-sided thyromegaly/palpable mass noted CARDIOVASCULAR: Tachycardic, RR. S1, S2 no S4. Without murmur RESPIRATORY: Coarse crackles appreciated bilaterally. Tachypneic on the vent GASTROINTESTINAL: Abdomen soft, non-tender, nondistended. Hepatic and splenic margins not palpable. MUSCULOSKELETAL: Extremities bilateral trace nonpitting lower extremity edema. No obvious deformities. NEUROLOGICAL: Positive gag. Positive corneal reflex. Eyes open on propofol. Do not follow commands A/P Assessment and Plan Neuro/Psych: Depression/anxiety Toxic metabolic encephalopathy Ventriculomegaly History of dementia On propofol for vent synchrony, monitor neuro status. Patient does not follow commands. As needed fentanyl 50 every 2 hours when necessary pain EEG 11/06 revealed triphasic sway/diffuse sharp waves likely moderate encephalopathy cannot rule out proclivity of seizure Neuro Dr. Sampson. CT brain: Moderate ventriculomegaly, beyond that expected for the degree of atrophy. MRI confirms. Neurosurgery has followed- Dr. Hernandez No acute intervention Currently holding home medications clonazepam 0.5 mg twice a day and quetiapine 25 mg at night On levetiracetam 500 mg IV twice a day per neurology's EEG above CV: Hypertension Dyslipidemia On Lopressor 50mg Q8, amlodipine 10mg daily, Clonidine 0.3mg Q8 As needed hydralazine and labetalol and Nitropaste for hypertension Holding atorvastatin 40 mg by mouth daily for dyslipidemia. Pulm Acute hypoxemic respiratory failure possibly secondary to post obstructive pneumonia Squamous cell carcinoma of Lung [facility] 12/500/0//. Ventilator bundle. ` No further weaning trials. Awaiting order from commissary clerk for ventilator withdrawal Albuterol/ipratropium aerosols every 6 hours with albuterol aerosols every [address] chest reviewed revealed 3.4 x 2.5 right hilar mass with post discharge pneumonia in the right upper lobe. Right middle lobe mass. Pulm is following- Dr. Madison, s/p bronch with BAL 11/01. Cytology positive ( squamous cell carcinoma) Renal/: Hypernatremia - resolved Monitor renal function, I/O's, electrolytes replacement per protocol. Free water 250 cc every 8 hours tube feeds GI/liver: Mild protein calorie malnutrition Continue with Glucerna 1.5 at 40 cc an hour On famotidine 20mg BID for GI prophylaxis Docusate sodium 100 mg twice a day for bowel regimen ID: Escherichia coli UTI Postobstructive pneumonia Continue with abx per ID (fluconazole, aztreonam, meropenem) monitor for signs of infections ( Fever, WBC). Sputum cx 11/09: Pseudomonas, Staph Aureus Follow up on cultures and bronchoscopy 11/01- Yeast species BC 11/04: NGTD Blood cultures 2 - 11/06 - NGTD Sputum 11/06 ESBL E Coli, PSAE, Staph. Strep pneumonia urinary Ag negative. ID has followed Urine cx 10/28: E COLI Heme: Leukocytosis Normocytic anemia Likely SCC lung Monitor CBC. Patient has hilar mass with pulmonary nodules, also thyroid mass. Seen by Oncology-Dr. Xavier patient is not candidate for surgery, chemo radiation give poor performance status, hospice was recommended. Palliative care is following Endocrine: Diabetes mellitus Right thyroid mass 6.8 cm/chronic Detemir 20 units Q12 On SSI medium scale Novolin R for glycemic control. Patient is on insulin glargine at home Prophylaxis: Famotidine 20 mg twice a day via OG tube, SCDs/subcutaneous heparin Level 1 follow-up Probable withdrawal of care today awaiting commissary clerk's order Trevor Parr MD Nov 20, 2016 09:41
[2016-11-20] MEDS: LACTOBACILLUS ACIDOPHILUS TAB PO SCH ×3 (10:03→18:16)
[2016-11-20] MEDS: MUPIROCIN 2% OINT 1 APPLIC/GM SYR EACH NARE SCH ×2 (10:03→20:18)
[2016-11-20] MEDS: DOCUSATE SODIUM 100 MG/10 ML UDC PO SCH ×2 (10:04→20:19)
[2016-11-20] MEDS: FAMOTIDINE 20 MG TAB PO SCH ×2 (10:04→20:18)
[2016-11-20] MEDS: SODIUM CHLORIDE 0.9% FLUSH 10 ML FLUSH IV FLUSH SCH ×2 (10:04→20:21)
[2016-11-20] MEDS: HEPARIN SODIUM - SQ 10,000 UNITS/ML VIAL SQ SCH ×2 (10:06→16:00)
[2016-11-20] MEDS: CHLORHEXIDINE 0.12% (ORAL KIT) 15 ML CUP MT SCH ×2 (10:06→20:18)
--- NOTE | 2016-11-20 10:26 | HHI.PR ---
Subjective Remarks 70 YOWF with VDRF,Pneumonia, ? Aspiration Bronchial wash Sq cell ca Mod amount of trach secretions. No fever Sedated with Diprivan. Gets techpnoic, belly breayhing. Objective Vital Signs Vital Signs Date Time Temp Pulse Resp B/P (MAP) Pulse Ox O2 Delivery O2 Flow Rate FiO2 11/20/16 08:25 100 40 11/20/16 06:00 104 11/20/16 04:30 95 40 11/20/16 04:00 40 11/20/16 04:00 98.1 86 36 144/64 (90) 95 11/20/16 04:00 86 11/20/16 02:00 86 11/20/16 00:00 80 11/20/16 00:00 40 11/20/16 00:00 98.0 80 31 131/61 (84) 100 11/19/16 22:51 96 40 11/19/16 22:00 83 11/19/16 20:32 99 40 11/19/16 20:00 40 11/19/16 20:00 99.1 99 39 169/75 (106) 92 11/19/16 20:00 99 11/19/16 18:53 85 41 129/58 (81) 94 11/19/16 18:53 85 11/19/16 18:30 75 44 119/58 (78) 94 11/19/16 18:30 75 11/19/16 18:00 75 44 118/56 (76) 94 11/19/16 18:00 75 11/19/16 17:30 74 40 121/60 (80) 95 11/19/16 17:00 80 41 125/60 (81) 95 11/19/16 16:30 79 38 120/56 (77) 96 11/19/16 16:00 100 41 140/68 (92) 93 11/19/16 16:00 100 11/19/16 16:00 99.1 11/19/16 16:00 40 11/19/16 15:54 96 40 11/19/16 15:00 101 11/19/16 15:00 171/78 (109) 11/19/16 14:30 96 11/19/16 14:30 96 41 160/70 (100) 98 11/19/16 14:00 98 11/19/16 14:00 98 37 156/72 (100) 98 11/19/16 13:30 103 42 169/81 (110) 96 11/19/16 13:00 91 29 152/71 (98) 98 11/19/16 12:42 99 27 154/66 (95) 99 11/19/16 12:31 103 30 173/81 (111) 100 11/19/16 12:30 104 32 178/82 (114) 100 11/19/16 12:00 40 11/19/16 12:00 88 35 147/68 (94) 100 11/19/16 12:00 88 11/19/16 12:00 99.0 11/19/16 11:52 99 40 11/19/16 11:30 87 11/19/16 11:30 87 30 164/73 (103) 100 11/19/16 11:00 84 30 146/67 (93) 87 11/19/16 11:00 84 11/19/16 10:30 92 11/19/16 10:30 92 34 154/70 (98) 99 I/O 11/19/16 11/19/16 11/19/16 11/20/16 11/20/16 11/20/16 07:00 15:00 23:00 07:00 15:00 23:00 Intake Total 1265 ml 300 ml 500 ml 1618 ml Output Total 1000 ml 550 ml 600 ml Balance 265 ml 300 ml -50 ml 1018 ml Intake Oral 0 ml IV Total 335 ml 300 ml 200 ml 673 ml Tube Feeding 430 ml 300 ml 445 ml Other 500 ml 500 ml Output Urine Total 800 ml 550 ml 600 ml Stool Total 200 ml # Bowel Movements 2 2 Result Diagram: 11/20/16 04511/20/16 045 Objective Remarks GENERAL: MBMN WF, intubated, sedated SKIN: Warm and dry. HEAD: Normocephalic. EYES: No scleral icterus. No injection or drainage. NECK: Supple, trachea midline. No JVD or lymphadenopathy. CARDIOVASCULAR: Regular rate and rhythm without murmurs, gallops, or rubs. RESPIRATORY: Breath sounds equal bilaterally. No accessory muscle use. GASTROINTESTINAL: Abdomen soft, non-tender, nondistended. MUSCULOSKELETAL: No cyanosis, or edema. BACK: Nontender without obvious deformity. No CVA tenderness. A/P Assessment and Plan VDRF Pneumonia Aspiration DM Dementia Ventriculomegaly Squamous cell ca PLAN: Vent Support -AC 14, Fi02 30% Cont Abx Aerosol nebs SQ Heparin Code status DNR Prognosis poor Awaiting decision by [facility] for withdrawl, Sedation with Diprivan. Luis Madison MD Nov 20, 2016 10:26
[2016-11-20] MEDS: AZTREONAM INJ 2,000 MG in SODIUM CHLORIDE 0.9% INJ 100 ML IV SCH (10:35)
--- NOTE | 2016-11-20 11:46 | HHI.IDPN ---
Note Infectious Disease Note ID resumption of care. Notes reviewed. Patient on the vent. Unresponsive. Tachycardic. Afebrile. PAST MEDICAL HISTORY 1. Dementia. 2. Diabetes mellitus. 3. Hypertension. 4. Thyroid disease. 5. Anxiety, depression. 6. Arthritis. ALLERGIES AMOXICILLIN, PROPOXYPHENE. ANTIBIOTICS: Azactam. Meropenem. OBJECTIVE: Vital Signs Date Time Temp Pulse Resp B/P (MAP) Pulse Ox O2 Delivery O2 Flow Rate FiO2 11/20/16 08:25 100 40 11/20/16 06:00 104 11/20/16 04:30 95 40 11/20/16 04:00 40 11/20/16 04:00 98.1 86 36 144/64 (90) 95 11/20/16 04:00 86 11/20/16 02:00 86 11/20/16 00:00 80 11/20/16 00:00 40 11/20/16 00:00 98.0 80 31 131/61 (84) 100 11/19/16 22:51 96 40 11/19/16 22:00 83 11/19/16 20:32 99 40 11/19/16 20:00 40 11/19/16 20:00 99.1 99 39 169/75 (106) 92 11/19/16 20:00 99 11/19/16 18:53 85 41 129/58 (81) 94 11/19/16 18:53 85 11/19/16 18:30 75 44 119/58 (78) 94 11/19/16 18:30 75 11/19/16 18:00 75 44 118/56 (76) 94 11/19/16 18:00 75 11/19/16 17:30 74 40 121/60 (80) 95 11/19/16 17:00 80 41 125/60 (81) 95 11/19/16 16:30 79 38 120/56 (77) 96 11/19/16 16:00 100 41 140/68 (92) 93 11/19/16 16:00 100 11/19/16 16:00 99.1 11/19/16 16:00 40 11/19/16 15:54 96 40 11/19/16 15:00 101 11/19/16 15:00 171/78 (109) 11/19/16 14:30 96 11/19/16 14:30 96 41 160/70 (100) 98 11/19/16 14:00 98 11/19/16 14:00 98 37 156/72 (100) 98 11/19/16 13:30 103 42 169/81 (110) 96 11/19/16 13:00 91 29 152/71 (98) 98 11/19/16 12:42 99 27 154/66 (95) 99 11/19/16 12:31 103 30 173/81 (111) 100 11/19/16 12:30 104 32 178/82 (114) 100 11/19/16 12:00 40 11/19/16 12:00 88 35 147/68 (94) 100 11/19/16 12:00 88 11/19/16 12:00 99.0 11/19/16 11:52 99 40 Laboratory Tests Test 11/19/16 11:50 11/20/16 04:51 White Blood Count 9.7 TH/MM3 9.8 TH/MM3 Red Blood Count 3.10 MIL/MM3 3.00 MIL/MM3 Hemoglobin 8.8 GM/DL 8.7 GM/DL Hematocrit 27.6 % 26.8 % Mean Corpuscular Volume 89.2 FL 89.2 FL Mean Corpuscular Hemoglobin 28.6 PG 29.0 PG Mean Corpuscular Hemoglobin Concent 32.0 % 32.5 % Red Cell Distribution Width 14.4 % 14.4 % Platelet Count 389 TH/MM3 399 TH/MM3 Mean Platelet Volume 8.7 FL 8.6 FL Laboratory Tests Test 11/19/16 11:50 11/20/16 04:51 Blood Urea Nitrogen 32 MG/DL 33 MG/DL Creatinine 0.60 MG/DL 0.58 MG/DL Random Glucose 137 MG/DL 130 MG/DL Calcium Level 8.7 MG/DL 8.6 MG/DL Sodium Level 146 MEQ/L 145 MEQ/L Potassium Level 4.4 MEQ/L 4.7 MEQ/L Chloride Level 112 MEQ/L 112 MEQ/L Carbon Dioxide Level 26.4 MEQ/L 27.1 MEQ/L Anion Gap 8 MEQ/L 6 MEQ/L Estimat Glomerular Filtration Rate 98 ML/MIN 102 ML/MIN IMAGING: Chest X-Ray 11/19/16 0600 Signed Impressions: Service Date/Time: Saturday, November 19, 2016 03:49 - CONCLUSION: No significant change Keshav Vora MD Chest X-Ray 11/18/16 0600 Signed Impressions: Service Date/Time: Friday, November 18, 2016 04:04 - CONCLUSION: Some improvement involving the diffuse bilateral pulmonary infiltrates. Eric Levine Jr., MD Chest X-Ray 11/07/16 0000 Signed Impressions: Service Date/Time: Monday, November 07, 2016 04:53 - CONCLUSION: 1. Slight increase in basilar airspace disease since November 05. Endotracheal tube and nasogastric tube unchanged. Nestor Palomino MD Cervical Spine MRI 11/06/16 0000 Signed Impressions: Service Date/Time: Sunday, November 06, 2016 21:36 - CONCLUSION: 1. Multilevel degenerative changes of the cervical spine as above, especially C5/ C6 and C6/C7. 2. Mild to moderate spinal stenosis and severe right foraminal stenosis at C5/C6. 3. Mild spinal stenosis and moderate right foraminal stenosis at C6/C7. 4. No cord compression or cord signal abnormality. 5. No fracture or subluxation. 6. Large nodule of the left lobe of the thyroid gland. There are also upper limits of normal bilateral cervical lymph nodes. Keshav Burks MD Brain MRI 11/06/16 0000 Signed Impressions: Service Date/Time: Sunday, November 06, 2016 21:36 - CONCLUSION: 1. No change or acute abnormality demonstrated. 2. Atrophy, ventriculomegaly and chronic white matter changes are again noted. Keshav Burks MD Chest X-Ray 11/05/16 0600 Signed Impressions: Service Date/Time: Saturday, November 05, 2016 03:32 - CONCLUSION: 1. Mild basilar airspace disease similar to November 03. Support apparatus in good position. Nestor Palomino MD PHYSICAL EXAMINATION GENERAL: On the ventilator. No acute distress. LUNGS: Bilateral rhonchi. HEART: Nl S1S2, No audible murmurs or rubs or gallops. ABDOMEN: Obese, soft, Tenderness not appreciated. EXTREMITIES: No clubbing or cyanosis. (+) edema at extremities. SKIN: No rash. NEURO: Unresponsive. PSYCH: Unable to assess. IMPRESSION 1. Bilateral Pneumonia with hilar cavitary mass. Pseudomonas and ESBL e. coli in sputum. 2. Squamous cell cancer. Hilar mass/thyroid lesion. 3. Acute respiratory failure. 4. Encephalopathy. Leigh poor. RECOMMENDATIONS 1. Stop aztreonam. 2. Stop Meropenem. 3. Monitor temperature. 4. Follow clinical status. Francisco Zarate MD Nov 20, 2016 11:46
--- NOTE | 2016-11-20 15:40 | HHI.HCPN ---
Spoke with legal guardian, [place] Lyons outside patient room. She indicates request for withdrawal of life support sent to Judge Schaefer, awaiting final determination. She will call when she hears from [employer]. Palliative care will coordinate transition to comfort and withdrawal of life support once order received. . Mirlande Pak Nov 20, 2016 15:39
[2016-11-21] VITALS (31 sets, daily range): BP systolic 135–168; BP diastolic 60–94; PULSE 70–119; RESP 12–51; TEMP 97.8–100.9; O2SAT 94–100
[2016-11-21] MEDS: HEPARIN SODIUM - SQ 10,000 UNITS/ML VIAL SQ SCH ×4 (00:02→23:44)
[2016-11-21] MEDS: INSULIN NovoLIN REGULAR SUPPLEMENTAL SCALE SQ SCH ×4 (02:00→20:00)
[2016-11-21] MEDS: PROPOFOL 1000 MG/100 ML INJ 100 ML IV PRN ×4 (02:40→21:21)
[2016-11-21] MEDS: CHLORHEXIDINE GLUCONATE 2 % 1 PACK (2 CLOTHS) TOP SCH (03:37)
[2016-11-21] MEDS: levETIRAcetam INJ 500 MG in SODIUM CHLORIDE 0.9% INJ 100 ML IV SCH ×2 (03:37→13:52)
[2016-11-21] MEDS: cloNIDine HCL 0.3 MG TAB PO SCH ×3 (06:00→20:28)
[2016-11-21] MEDS: FREE WATER NG SCH ×3 (06:00→20:29)
[2016-11-21] MEDS: METOPROLOL TARTRATE 50 MG TAB PO SCH ×3 (06:08→20:28)
[2016-11-21] MEDS: ARTIFICIAL TEARS OPTH SOLN 15 ML BTL EACH EYE SCH ×3 (06:08→20:29)
[2016-11-21] MEDS: CHLORHEXIDINE 0.12% (ORAL KIT) 15 ML CUP MT SCH ×2 (09:00→20:29)
[2016-11-21] MEDS: SODIUM CHLORIDE 0.9% FLUSH 10 ML FLUSH IV FLUSH SCH ×2 (09:00→20:29)
[2016-11-21] MEDS: INSULIN DETEMIR 100 UNITS/ML VIAL SQ SCH ×2 (09:00→20:29)
[2016-11-21] MEDS: MUPIROCIN 2% OINT 1 APPLIC/GM SYR EACH NARE SCH ×2 (09:01→20:28)
[2016-11-21] MEDS: FAMOTIDINE 20 MG TAB PO SCH ×2 (09:01→20:28)
[2016-11-21] MEDS: DOCUSATE SODIUM 100 MG/10 ML UDC PO SCH ×2 (09:01→20:29)
[2016-11-21] MEDS: LACTOBACILLUS ACIDOPHILUS TAB PO SCH ×3 (09:01→17:45)
--- NOTE | 2016-11-21 13:18 | HHI.CCPN ---
Subjective Remarks/Hospital Course HPI 70-[facility]-old [facility] resident with a medical history significant for dementia, diabetes mellitus, hyperlipidemia, reactive airway disease who was found to have altered mental status at the [facility] for which EMS was called. Patient was noted to have O2 sats in the 70s. She was very apneic with her head slumped down. Paramedics report of having to hold her head up to have her breathe with the nebulizer treatment in place. Patient was given Solu- Medrol 125 mg IV and 4 nebulizer treatments prior to arrival in the ER for documentation. On arrival in the ER patient was extremely lethargic however was reportedly able to answer some questions. Patient was felt not to be able to protect her airway as well as very hypoxic and hence was intubated by ER physician and placed on mechanical ventilation. Chest x-ray in the ER showed bilateral infiltrates and possible cavitary lesion. She was accepted for admission by critical care medicine service. CT chest was ordered by ER physician. When I evaluated the patient in the ER she was sedated with propofol , orally intubated on mechanical ventilation. History was obtained by reviewing records and discussion with ER physician. 10/29 Patient is sedated with Diprivan and intubated. Afebrile. 10/30 Patient remains sedated and intubated. T:99.7 last night. 10/31: Intubated sedated. CT reviewed and discussed with Dr. Madison. Will consider Bronch. Also check thyroid US and possible biopsy. Check thyroid studies. Also consult palliative care as patient has underlying dementia with NPH and possible malignancy. 11/01: Tmax 100.3. Plan for bronchoscopy at 3:00 today. Noted thyroid masses chronic/since 2011. Tolerating tube feeding. Positive BM. 11/02: Tmax 100.1. Status post bronchoscopy yesterday with removal of mucous plugging. Tolerating tube feeds. Positive BM. Weaning propofol sedation today. 11/03: Tmax 100.6. Noted elevated leukocytosis. Weaning sedation. Positive BM. Tolerate tube feeding. 11/04: Afebrile. UA negative. C. difficile pending. 4 bowel movement overnight. Tolerating tube feeding. No new issues. 11/05 Patient is sedated with Diprivan and intubated. T:100.7. Given Labetalol 10mg IV x3 for hypertension overnight. 11/06 No events overnight. Off sedation. T: 101.5 last night. 11/07: Tmax 102. Currently 100.6. Continues off sedation. Eyes are open to voice but not falling commands. Noted MRI brain unchanged. MRI C-spine revealed no cord compression or cord abnormality's. Severe C5/6 right foraminal narrowing 11/08: Remains intubated sedated, intermittently opens eyes. Per palliative care , inspector returned materials requesting letter of certification from treatment team. Prior to making a decision to withdraw from life support, the inspector returned materials is requesting a letter from the covering physicians certifying that she is hospice appropriate and palliative rather than aggressive treatment is appropriate. Dr. Madison thinks hospice is appropriate but also recommends Oncology input. I have consulted medical oncology 11/09 Patient remains intubated, on no sedation, Tmax 103.1 gets tachypneic with CPAP trials 11/10 Patient is intubated had T:100.3 last night. Doesn't follow commands. 11/11 No events overnight. Placed on Precedex drip yesterday to facilitate with weaning trials. T: 99.7. Awake looking around with her eyes but does not following commands. 11/12 Patient remains intubated. On Precedex drip. Did not tolerate CPAP trials yesterday. 11/13 No events overnight. Intubated doesn't tolerate CPAP trials. T:100.5 last night. 11/14 Patient remains intubated. Off sedation. T;100.1 11/15 No events overnight. Intubated. T:100.8 last night. 11/16: Tmax 99.5. Currently resting in bed in no acute distress. Eyes are open but does not follow commands. Off all sedation. Tolerating tube feeding. Positive BM. 11/17: Tmax 100.1. Resting blood eyes open not falling commands. Off all sedation. Tolerating tube feeds. Intermittently hypertensive. 11/18: Tmax 99.5. Moving head back and forth and following commands weakly with bilateral upper extremities. Tolerating tube feeds. Off all sedation 7 days. Subjective 11/19: Asynchronous with the vent. Now on propofol. Probable withdrawal of care today according to palliative care. Waiting to hear back from guardian 11/20: Waiting for inspector returned materials's order to permit withdrawal from ventilator, and comfort measures. At this time patient is sedated with propofol. Fentanyl as needed 11/21: Sedated with propofol appears comfortable. Bilateral course breath sounds. IV Bumex and DuoNeb ordered Objective Vital Signs Date Time Temp Pulse Resp B/P (MAP) Pulse Ox O2 Delivery O2 Flow Rate FiO2 11/21/16 12:35 98 35 11/21/16 10:01 101 11/21/16 10:01 50 140/63 (88) 11/21/16 08:00 99.8 Intake and Output 11/21/16 11/21/16 11/22/16 08:00 16:00 00:00 Intake Total 1269 ml 100 ml Output Total 850 ml Balance 419 ml 100 ml Result Diagram: 11/20/16 0451 11/20/16 0451 Imaging Last Impressions Chest X-Ray 11/18/16 0600 Signed Impressions: Service Date/Time: Friday, November 18, 2016 04:04 - CONCLUSION: Some improvement involving the diffuse bilateral pulmonary infiltrates. Eric Levine Jr., MD Cervical Spine MRI 11/06/16 0000 Signed Impressions: Service Date/Time: Sunday, November 06, 2016 21:36 - CONCLUSION: 1. Multilevel degenerative changes of the cervical spine as above, especially C5/ C6 and C6/C7. 2. Mild to moderate spinal stenosis and severe right foraminal stenosis at C5/C6. 3. Mild spinal stenosis and moderate right foraminal stenosis at C6/C7. 4. No cord compression or cord signal abnormality. 5. No fracture or subluxation. 6. Large nodule of the left lobe of the thyroid gland. There are also upper limits of normal bilateral cervical lymph nodes. Keshav Burks MD Brain MRI 11/06/16 0000 Signed Impressions: Service Date/Time: Sunday, November 06, 2016 21:36 - CONCLUSION: 1. No change or acute abnormality demonstrated. 2. Atrophy, ventriculomegaly and chronic white matter changes are again noted. Keshav Burks MD Thyroid Ultrasound 10/31/16 0000 Signed Impressions: Service Date/Time: Monday, October 31, 2016 11:47 - CONCLUSION: Large complex mass right lobe of the thyroid. Minimally increased in size since Jacoby Torre MD FACR Abdomen X-Ray 10/29/16 0000 Signed Impressions: Service Date/Time: Saturday, October 29, 2016 15:32 - CONCLUSION: Negative for radiopaque foreign bodies. Jacoby Torre MD FACR Chest CT 10/28/16 1814 Signed Impressions: Service Date/Time: Friday, October 28, 2016 18:28 - CONCLUSION: 1. Abnormality on chest radiograph corresponds to a 3.4 x 3.5 cm central right hilar mass/adenopathy with associated postobstructive airspace consolidation in the inferior right upper lobe. There are at least 2 additional pulmonary nodules measuring 13 x 8 mm in the anterior right middle lobe and 8 x 8 mm in the anterior right upper lobe near the apex. 2. 3.9 x 4.3 cm heterogeneous nodule in the right thyroid gland. No significant regional cervical adenopathy. 3. Patchy bilateral lower lobe air space consolidation and diffuse ground glass opacities. Differential considerations include ARDS versus infection versus aspiration. 1. Tyler Selby MD Head CT 10/28/16 0000 Signed Impressions: Service Date/Time: Friday, October 28, 2016 20:44 - CONCLUSION: 1. No bleed or evidence of acute infarction. 2. Atrophy and chronic white matter changes. 3. Moderate ventriculomegaly, beyond that expected for the degree of atrophy. Normal pressure hydrocephalus would be in the differential. Keshav Burks MD Objective Remarks GENERAL: 71-year-old female, critically ill currently orotracheally intubated, sedated with propofol SKIN: Warm and dry. HEAD: Atraumatic. Normocephalic. EYES: Pupils equal and round about 3 mm bilaterally and reactive. No scleral icterus. No injection or drainage. ENT: No nasal bleeding or discharge. Orotracheally intubated NECK: Trachea midline. No JVD. Right-sided thyromegaly/palpable mass noted CARDIOVASCULAR: Tachycardic, RR. S1, S2 no S4. Without murmur RESPIRATORY: Coarse crackles appreciated bilaterally, bilateral rhonchi. GASTROINTESTINAL: Abdomen soft, non-tender, nondistended. Hepatic and splenic margins not palpable. MUSCULOSKELETAL: Extremities bilateral trace nonpitting lower extremity edema. No obvious deformities. NEUROLOGICAL: Positive gag. Positive corneal reflex. Eyes open on propofol. Do not follow commands A/P Assessment and Plan Neuro/Psych: Depression/anxiety Toxic metabolic encephalopathy Ventriculomegaly History of dementia On propofol for vent synchrony, monitor neuro status. Patient does not follow commands. As needed fentanyl 50 every 2 hours when necessary pain EEG 11/06 revealed triphasic sway/diffuse sharp waves likely moderate encephalopathy cannot rule out proclivity of seizure Neuro Dr. Sampson. CT brain: Moderate ventriculomegaly, beyond that expected for the degree of atrophy. MRI confirms. Neurosurgery has followed- Dr. Hernandez No acute intervention Currently holding home medications clonazepam 0.5 mg twice a day and quetiapine 25 mg at night On levetiracetam 500 mg IV twice a day per neurology's EEG above CV: Hypertension Dyslipidemia On Lopressor 50mg Q8, amlodipine 10mg daily, Clonidine 0.3mg Q8 As needed hydralazine and labetalol and Nitropaste for hypertension Holding atorvastatin 40 mg by mouth daily for dyslipidemia. Pulm Acute hypoxemic respiratory failure possibly secondary to post obstructive pneumonia Squamous cell carcinoma of Lung [facility] 12/0//. Ventilator bundle. No further weaning trials. Awaiting order from inspector returned materials for ventilator withdrawal Albuterol/ipratropium aerosols every 6 hours with albuterol aerosols every [address] chest reviewed revealed 3.4 x 2.5 right hilar mass with post discharge pneumonia in the right upper lobe. Right middle lobe mass. Pulm is following- Dr. Madison, s/p bronch with BAL 11/01. Cytology positive ( squamous cell carcinoma) Renal/: Hypernatremia - resolved Monitor renal function, I/O's, electrolytes replacement per protocol. Free water 250 cc every 8 hours tube feeds GI/liver: Mild protein calorie malnutrition Continue with Glucerna 1.5 at 40 cc an hour On famotidine 20mg BID for GI prophylaxis Docusate sodium 100 mg twice a day for bowel regimen ID: Escherichia coli UTI Postobstructive pneumonia Continue with abx per ID (fluconazole, aztreonam, meropenem) monitor for signs of infections ( Fever, WBC). Sputum cx 11/09: Pseudomonas, Staph Aureus Follow up on cultures and bronchoscopy 11/01- Yeast species BC 11/04: NGTD Blood cultures 2 - 11/06 - NGTD Sputum 11/06 ESBL E Coli, PSAE, Staph. Strep pneumonia urinary Ag negative. ID has followed Urine cx 10/28: E COLI Heme: Leukocytosis Normocytic anemia Likely SCC lung Monitor CBC. Patient has hilar mass with pulmonary nodules, also thyroid mass. Seen by Oncology-Dr. Xavier patient is not candidate for surgery, chemo radiation give poor performance status, hospice was recommended. Palliative care is following Endocrine: Diabetes mellitus Right thyroid mass 6.8 cm/chronic Detemir 20 units Q12 On SSI medium scale Novolin R for glycemic control. Patient is on insulin glargine at home Prophylaxis: Famotidine 20 mg twice a day via OG tube, SCDs/subcutaneous heparin Level 1 follow-up Awaiting order from inspector returned materials for ventilator withdrawal, palliative care following Trevor Parr MD Nov 21, 2016 13:18
[2016-11-21] MEDS ORDERED: BUMETANIDE INJ 1 MG/4 ML VIAL ONE (13:38)
[2016-11-21] MEDS ORDERED: BUMETANIDE INJ 1 MG/4 ML VIAL IV PUSH ONE (13:45)
--- NOTE | 2016-11-21 14:20 | HHI.IDPN ---
Note Infectious Disease Note Patient on the vent. Unresponsive. Grimaces. Afebrile. now. Low grade fever earlier. PAST MEDICAL HISTORY 1. Dementia. 2. Diabetes mellitus. 3. Hypertension. 4. Thyroid disease. 5. Anxiety, depression. 6. Arthritis. ALLERGIES AMOXICILLIN, PROPOXYPHENE. OBJECTIVE: Vital Signs Date Time Temp Pulse Resp B/P (MAP) Pulse Ox O2 Delivery O2 Flow Rate FiO2 11/21/16 13:00 89 12 139/60 (86) 98 11/21/16 13:00 89 11/21/16 12:35 98 35 11/21/16 12:30 100 11/21/16 12:30 100 39 154/67 (96) 98 11/21/16 12:00 101 11/21/16 12:00 97.9 11/21/16 12:00 101 42 145/67 (93) 98 11/21/16 12:00 40 11/21/16 10:09 98 40 11/21/16 10:01 101 11/21/16 10:01 101 50 140/63 (88) 98 11/21/16 10:00 101 11/21/16 10:00 101 48 98 11/21/16 09:30 108 46 168/94 (118) 100 11/21/16 09:01 97 37 160/69 (99) 100 11/21/16 09:00 99 39 100 11/21/16 08:30 83 40 135/63 (87) 100 11/21/16 08:00 99.8 11/21/16 08:00 81 11/21/16 08:00 89 43 145/63 (90) 98 11/21/16 08:00 40 11/21/16 07:45 98 40 11/21/16 06:00 119 11/21/16 04:05 98 40 11/21/16 04:00 101 11/21/16 04:00 40 11/21/16 04:00 99.1 101 51 152/69 (96) 97 11/21/16 02:00 97 11/21/16 00:00 82 11/21/16 00:00 40 11/21/16 00:00 98.9 82 43 154/68 (96) 99 11/20/16 22:38 100 40 11/20/16 22:00 82 11/20/16 20:00 103 11/20/16 20:00 40 11/20/16 20:00 99.1 103 49 161/72 (101) 98 11/20/16 19:47 97 40 11/20/16 18:00 101 11/20/16 16:03 100 40 11/20/16 16:00 40 11/20/16 16:00 98.5 92 38 132/61 (84) 100 11/20/16 16:00 101 Laboratory Tests Test 11/20/16 04:51 White Blood Count 9.8 TH/MM3 Red Blood Count 3.00 MIL/MM3 Hemoglobin 8.7 GM/DL Hematocrit 26.8 % Mean Corpuscular Volume 89.2 FL Mean Corpuscular Hemoglobin 29.0 PG Mean Corpuscular Hemoglobin Concent 32.5 % Red Cell Distribution Width 14.4 % Platelet Count 399 TH/MM3 Mean Platelet Volume 8.6 FL Laboratory Tests Test 11/20/16 04:51 Blood Urea Nitrogen 33 MG/DL Creatinine 0.58 MG/DL Random Glucose 130 MG/DL Calcium Level 8.6 MG/DL Sodium Level 145 MEQ/L Potassium Level 4.7 MEQ/L Chloride Level 112 MEQ/L Carbon Dioxide Level 27.1 MEQ/L Anion Gap 6 MEQ/L Estimat Glomerular Filtration Rate 102 ML/MIN IMAGING: Chest X-Ray 11/19/16 0600 Signed Impressions: Service Date/Time: Saturday, November 19, 2016 03:49 - CONCLUSION: No significant change Keshav Vora MD Chest X-Ray 11/18/16 0600 Signed Impressions: Service Date/Time: Friday, November 18, 2016 04:04 - CONCLUSION: Some improvement involving the diffuse bilateral pulmonary infiltrates. Eric Levine Jr., MD Chest X-Ray 11/07/16 0000 Signed Impressions: Service Date/Time: Monday, November 07, 2016 04:53 - CONCLUSION: 1. Slight increase in basilar airspace disease since November 05. Endotracheal tube and nasogastric tube unchanged. Nestor Palomino MD Cervical Spine MRI 11/06/16 0000 Signed Impressions: Service Date/Time: Sunday, November 06, 2016 21:36 - CONCLUSION: 1. Multilevel degenerative changes of the cervical spine as above, especially C5/ C6 and C6/C7. 2. Mild to moderate spinal stenosis and severe right foraminal stenosis at C5/C6. 3. Mild spinal stenosis and moderate right foraminal stenosis at C6/C7. 4. No cord compression or cord signal abnormality. 5. No fracture or subluxation. 6. Large nodule of the left lobe of the thyroid gland. There are also upper limits of normal bilateral cervical lymph nodes. Keshav Burks MD Brain MRI 11/06/16 0000 Signed Impressions: Service Date/Time: Sunday, November 06, 2016 21:36 - CONCLUSION: 1. No change or acute abnormality demonstrated. 2. Atrophy, ventriculomegaly and chronic white matter changes are again noted. Keshav Burks MD Chest X-Ray 11/05/16 0600 Signed Impressions: Service Date/Time: Saturday, November 05, 2016 03:32 - CONCLUSION: 1. Mild basilar airspace disease similar to November 03. Support apparatus in good position. Nestor Palomino MD PHYSICAL EXAMINATION GENERAL: On the ventilator. No acute distress. LUNGS: Bilateral rhonchi same. HEART: Nl S1S2, No audible murmurs or rubs or gallops. ABDOMEN: Obese, soft, Tenderness not appreciated. EXTREMITIES: No clubbing or cyanosis. (+) edema at extremities. SKIN: No rash. NEURO: Unresponsive. PSYCH: Unable to assess. IMPRESSION 1. Bilateral Pneumonia with hilar cavitary mass. Pseudomonas and ESBL e. coli in sputum. 2. Squamous cell cancer. Hilar mass/thyroid lesion. Hilar mass biopsied. 3. Acute respiratory failure. 4. Encephalopathy. [place] poor. RECOMMENDATIONS 1. Monitor temperature. 2. Follow clinical status. 3. Monitor for signs of infection. Francisco Zarate MD Nov 21, 2016 14:20
[2016-11-21] MEDS: RESP: ALBUTEROL 2.5 MG/3 ML NEB (PRN) NEB (17:11)
[2016-11-21] MEDS: LORazepam 2 MG/ML VIAL IV PRN (17:44)
[2016-11-22] VITALS (19 sets, daily range): BP systolic 128–171; BP diastolic 62–93; PULSE 68–114; RESP 12–44; TEMP 98–100.2; O2SAT 93–96
[2016-11-22] MEDS: INSULIN NovoLIN REGULAR SUPPLEMENTAL SCALE SQ SCH ×4 (02:00→21:11)
[2016-11-22] MEDS: levETIRAcetam INJ 500 MG in SODIUM CHLORIDE 0.9% INJ 100 ML IV SCH ×2 (02:09→14:29)
[2016-11-22] MEDS: CHLORHEXIDINE GLUCONATE 2 % 1 PACK (2 CLOTHS) TOP SCH (02:10)
[2016-11-22] MEDS: PROPOFOL 1000 MG/100 ML INJ 100 ML IV PRN ×3 (02:11→22:49)
[2016-11-22] MEDS: FREE WATER NG SCH ×3 (05:07→22:33)
[2016-11-22] MEDS: ARTIFICIAL TEARS OPTH SOLN 15 ML BTL EACH EYE SCH ×3 (05:07→22:32)
[2016-11-22] MEDS: METOPROLOL TARTRATE 50 MG TAB PO SCH ×3 (05:07→22:33)
[2016-11-22] MEDS: cloNIDine HCL 0.3 MG TAB PO SCH ×3 (05:07→22:33)
[2016-11-22] MEDS: INSULIN DETEMIR 100 UNITS/ML VIAL SQ SCH ×2 (07:51→21:09)
[2016-11-22] MEDS: HEPARIN SODIUM - SQ 10,000 UNITS/ML VIAL SQ SCH ×2 (07:51→14:30)
[2016-11-22] MEDS: FAMOTIDINE 20 MG TAB PO SCH ×2 (07:51→21:09)
[2016-11-22] MEDS: MUPIROCIN 2% OINT 1 APPLIC/GM SYR EACH NARE SCH ×2 (07:51→20:54)
[2016-11-22] MEDS: DOCUSATE SODIUM 100 MG/10 ML UDC PO SCH ×2 (07:51→21:09)
[2016-11-22] MEDS: LACTOBACILLUS ACIDOPHILUS TAB PO SCH ×3 (07:51→17:48)
[2016-11-22] MEDS: CHLORHEXIDINE 0.12% (ORAL KIT) 15 ML CUP MT SCH ×2 (07:53→20:00)
[2016-11-22] MEDS: SODIUM CHLORIDE 0.9% FLUSH 10 ML FLUSH IV FLUSH SCH ×2 (08:43→21:12)
--- NOTE | 2016-11-22 10:56 | HHI.CCPN ---
Subjective Remarks/Hospital Course HPI 70-year-old long term resident with a medical history significant for dementia, diabetes mellitus, hyperlipidemia, reactive airway disease who was found to have altered mental status at the long term for which EMS was called. Patient was noted to have O2 sats in the 70s. She was very apneic with her head slumped down. Paramedics report of having to hold her head up to have her breathe with the nebulizer treatment in place. Patient was given Solu- Medrol 125 mg IV and 4 nebulizer treatments prior to arrival in the ER for documentation. On arrival in the ER patient was extremely lethargic however was reportedly able to answer some questions. Patient was felt not to be able to protect her airway as well as very hypoxic and hence was intubated by ER physician and placed on mechanical ventilation. Chest x-ray in the ER showed bilateral infiltrates and possible cavitary lesion. She was accepted for admission by critical care medicine service. CT chest was ordered by ER physician. When I evaluated the patient in the ER she was sedated with propofol , orally intubated on mechanical ventilation. History was obtained by reviewing records and discussion with ER physician. 10/29 Patient is sedated with Diprivan and intubated. Afebrile. 10/30 Patient remains sedated and intubated. T:99.7 last night. 10/31: Intubated sedated. CT reviewed and discussed with Dr. Madison. Will consider Bronch. Also check thyroid US and possible biopsy. Check thyroid studies. Also consult palliative care as patient has underlying dementia with NPH and possible malignancy. 11/01: Tmax 100.3. Plan for bronchoscopy at 3:00 today. Noted thyroid masses chronic/since 2011. Tolerating tube feeding. Positive BM. 11/02: Tmax 100.1. Status post bronchoscopy yesterday with removal of mucous plugging. Tolerating tube feeds. Positive BM. Weaning propofol sedation today. 11/03: Tmax 100.6. Noted elevated leukocytosis. Weaning sedation. Positive BM. Tolerate tube feeding. 11/04: Afebrile. UA negative. C. difficile pending. 4 bowel movement overnight. Tolerating tube feeding. No new issues. 11/05 Patient is sedated with Diprivan and intubated. T:100.7. Given Labetalol 10mg IV x3 for hypertension overnight. 11/06 No events overnight. Off sedation. T: 101.5 last night. 11/07: Tmax 102. Currently 100.6. Continues off sedation. Eyes are open to voice but not falling commands. Noted MRI brain unchanged. MRI C-spine revealed no cord compression or cord abnormality's. Severe C5/6 right foraminal narrowing 11/08: Remains intubated sedated, intermittently opens eyes. Per palliative care , presiding judge requesting letter of certification from treatment team. Prior to making a decision to withdraw from life support, the presiding judge is requesting a letter from the covering physicians certifying that she is hospice appropriate and palliative rather than aggressive treatment is appropriate. Dr. Madison thinks hospice is appropriate but also recommends Oncology input. I have consulted medical oncology 11/09 Patient remains intubated, on no sedation, Tmax 103.1 gets tachypneic with CPAP trials 11/10 Patient is intubated had T:100.3 last night. Doesn't follow commands. 11/11 No events overnight. Placed on Precedex drip yesterday to facilitate with weaning trials. T: 99.7. Awake looking around with her eyes but does not following commands. 11/12 Patient remains intubated. On Precedex drip. Did not tolerate CPAP trials yesterday. 11/13 No events overnight. Intubated doesn't tolerate CPAP trials. T:100.5 last night. 11/14 Patient remains intubated. Off sedation. T;100.1 11/15 No events overnight. Intubated. T:100.8 last night. 11/16: Tmax 99.5. Currently resting in bed in no acute distress. Eyes are open but does not follow commands. Off all sedation. Tolerating tube feeding. Positive BM. 11/17: Tmax 100.1. Resting blood eyes open not falling commands. Off all sedation. Tolerating tube feeds. Intermittently hypertensive. 11/18: Tmax 99.5. Moving head back and forth and following commands weakly with bilateral upper extremities. Tolerating tube feeds. Off all sedation 7 days. Subjective 11/19: Asynchronous with the vent. Now on propofol. Probable withdrawal of care today according to palliative care. Waiting to hear back from guardian 11/20: Waiting for presiding judge's order to permit withdrawal from ventilator, and comfort measures. At this time patient is sedated with propofol. Fentanyl as needed 11/21: Sedated with propofol appears comfortable. Bilateral course breath sounds. IV Bumex and DuoNeb ordered 11/22: Patient remains on the vent breathing comfortably on propofol. Bilateral wheezing has improved. No further decision had been made regarding date of withdrawal. Objective Vital Signs Date Time Temp Pulse Resp B/P (MAP) Pulse Ox O2 Delivery O2 Flow Rate FiO2 11/22/16 10:00 81 11/22/16 08:06 94 40 11/22/16 08:00 98.7 12 145/93 (110) Intake and Output 11/22/16 11/22/16 11/23/16 08:00 16:00 00:00 Intake Total 1208 ml Output Total 750 ml Balance 458 ml Result Diagram: 11/20/1645011/20/16 045 Imaging Last Impressions Chest X-Ray 11/18/16 0600 Signed Impressions: Service Date/Time: Friday, November 18, 2016 04:04 - CONCLUSION: Some improvement involving the diffuse bilateral pulmonary infiltrates. Eric Levine Jr., MD Cervical Spine MRI 11/06/16 0000 Signed Impressions: Service Date/Time: Sunday, November 06, 2016 21:36 - CONCLUSION: 1. Multilevel degenerative changes of the cervical spine as above, especially C5/ C6 and C6/C7. 2. Mild to moderate spinal stenosis and severe right foraminal stenosis at C5/C6. 3. Mild spinal stenosis and moderate right foraminal stenosis at C6/C7. 4. No cord compression or cord signal abnormality. 5. No fracture or subluxation. 6. Large nodule of the left lobe of the thyroid gland. There are also upper limits of normal bilateral cervical lymph nodes. Keshav Burks MD Brain MRI 11/06/16 0000 Signed Impressions: Service Date/Time: Sunday, November 06, 2016 21:36 - CONCLUSION: 1. No change or acute abnormality demonstrated. 2. Atrophy, ventriculomegaly and chronic white matter changes are again noted. Keshav Burks MD Thyroid Ultrasound 10/31/16 0000 Signed Impressions: Service Date/Time: Monday, October 31, 2016 11:47 - CONCLUSION: Large complex mass right lobe of the thyroid. Minimally increased in size since Jacoby Torre MD FACR Abdomen X-Ray 10/29/16 0000 Signed Impressions: Service Date/Time: Saturday, October 29, 2016 15:32 - CONCLUSION: Negative for radiopaque foreign bodies. Jacoby Torre MD FACR Chest CT 10/28/16 1814 Signed Impressions: Service Date/Time: Friday, October 28, 2016 18:28 - CONCLUSION: 1. Abnormality on chest radiograph corresponds to a 3.4 x 3.5 cm central right hilar mass/adenopathy with associated postobstructive airspace consolidation in the inferior right upper lobe. There are at least 2 additional pulmonary nodules measuring 13 x 8 mm in the anterior right middle lobe and 8 x 8 mm in the anterior right upper lobe near the apex. 2. 3.9 x 4.3 cm heterogeneous nodule in the right thyroid gland. No significant regional cervical adenopathy. 3. Patchy bilateral lower lobe air space consolidation and diffuse ground glass opacities. Differential considerations include ARDS versus infection versus aspiration. 1. Tyler Selby MD Head CT 10/28/16 0000 Signed Impressions: Service Date/Time: Friday, October 28, 2016 20:44 - CONCLUSION: 1. No bleed or evidence of acute infarction. 2. Atrophy and chronic white matter changes. 3. Moderate ventriculomegaly, beyond that expected for the degree of atrophy. Normal pressure hydrocephalus would be in the differential. Keshav Burks MD Objective Remarks GENERAL: 71-year-old female, critically ill currently orotracheally intubated, sedated with propofol SKIN: Warm and dry. HEAD: Atraumatic. Normocephalic. EYES: Pupils equal and round. No scleral icterus. No injection or drainage. ENT: No nasal bleeding or discharge. Orotracheally intubated NECK: Trachea midline. No JVD. Right-sided thyromegaly/palpable mass noted CARDIOVASCULAR: Tachycardic, RR. S1, S2 no S4. Without murmur RESPIRATORY: Coarse crackles appreciated bilaterally, bilateral rhonchi. GASTROINTESTINAL: Abdomen soft, non-tender, nondistended. Hepatic and splenic margins not palpable. MUSCULOSKELETAL: Extremities bilateral trace nonpitting lower extremity edema. No obvious deformities. NEUROLOGICAL: Positive gag. Positive corneal reflex. Eyes open on propofol. Do not follow commands Urinary Catheter: Yes A/P Assessment and Plan Neuro/Psych: Depression/anxiety Toxic metabolic encephalopathy Ventriculomegaly History of dementia On propofol for vent synchrony, monitor neuro status. As needed fentanyl 50 every 2 hours when necessary pain EEG 11/06 revealed triphasic sway/diffuse sharp waves likely moderate encephalopathy cannot rule out proclivity of seizure Neuro Dr. Sampson. CT brain: Moderate ventriculomegaly, beyond that expected for the degree of atrophy. MRI confirms. Neurosurgery has followed- Dr. Hernandez No acute intervention Currently holding home medications clonazepam 0.5 mg twice a day and quetiapine 25 mg at night On levetiracetam 500 mg IV twice a day per neurology's EEG above CV: Hypertension Dyslipidemia On Lopressor 50mg Q8, amlodipine 10mg daily, Clonidine 0.3mg Q8 As needed hydralazine and labetalol and Nitropaste for hypertension Holding atorvastatin 40 mg by mouth daily for dyslipidemia. Pulm Acute hypoxemic respiratory failure possibly secondary to post obstructive pneumonia Squamous cell carcinoma of Lung [facility] 12/0//. Ventilator bundle. No further weaning trials. Awaiting order from presiding judge for ventilator withdrawal Albuterol/ipratropium aerosols every 6 hours with albuterol aerosols every [address] chest reviewed revealed 3.4 x 2.5 right hilar mass with post discharge pneumonia in the right upper lobe. Right middle lobe mass. Pulm is following- Dr. Madison, s/p bronch with BAL 11/01. Cytology positive ( squamous cell carcinoma) Renal/: Hypernatremia - resolved Monitor renal function, I/O's, electrolytes replacement per protocol. Free water 250 cc every 8 hours tube feeds GI/liver: Mild protein calorie malnutrition Continue with Glucerna 1.5 at 40 cc an hour On famotidine 20mg BID for GI prophylaxis Docusate sodium 100 mg twice a day for bowel regimen ID: Escherichia coli UTI Postobstructive pneumonia Continue with abx per ID (fluconazole, aztreonam, meropenem) monitor for signs of infections ( Fever, WBC). Sputum cx 11/09: Pseudomonas, Staph Aureus Follow up on cultures and bronchoscopy 11/01- Yeast species BC 11/04: NGTD Blood cultures 2 - 11/06 - NGTD Sputum 11/06 ESBL E Coli, PSAE, Staph. Strep pneumonia urinary Ag negative. ID has followed Urine cx 10/28: E COLI Heme: Leukocytosis Normocytic anemia Likely SCC lung Monitor CBC. Patient has hilar mass with pulmonary nodules, also thyroid mass. Seen by Oncology-Dr. Xavier patient is not candidate for surgery, chemo radiation give poor performance status, hospice was recommended. Palliative care is following Endocrine: Diabetes mellitus Right thyroid mass 6.8 cm/chronic Detemir 20 units Q12 On SSI medium scale Novolin R for glycemic control. Patient is on insulin glargine at home Prophylaxis: Famotidine 20 mg twice a day via OG tube, SCDs/subcutaneous heparin Level 1 follow-up Awaiting order from presiding judge for ventilator withdrawal, palliative care following Trevor Parr MD Nov 22, 2016 10:55
--- NOTE | 2016-11-22 14:59 | HHI.HCPN ---
Spoke with patient's guardian regarding follow-up on order from federal judge regarding transition to comfort and withdrawal of life support. [place], guardian, reports she has checked the docket twice today with no further information at this time. Plan is for [employer] employment law attorney to reach out to [employer] tomorrow is no answer is received today. [place] remains in contact with patient's son to ensure he is updated when decision is made. Offered support. Palliative care will continue to follow throughout hospitalization. Leticia Levine, AUDIO VISUAL SPECIALIST Nov 22, 2016 14:59
--- NOTE | 2016-11-22 18:31 | HHI.PR ---
Subjective Remarks 70 YOWF with VDRF,Pneumonia, ? Aspiration Bronchial wash Sq cell ca Mod amount of trach secretions. No fever Sedated with Diprivan. on AC 12, Fi02 40% Objective Vital Signs Vital Signs Date Time Temp Pulse Resp B/P (MAP) Pulse Ox O2 Delivery O2 Flow Rate FiO2 11/22/16 18:00 105 11/22/16 16:24 94 40 11/22/16 16:00 100 11/22/16 16:00 98.3 100 12 149/93 (111) 94 11/22/16 16:00 40 11/22/16 14:00 114 11/22/16 12:40 94 40 11/22/16 12:00 40 11/22/16 12:00 104 11/22/16 12:00 98.3 104 14 161/82 (108) 94 11/22/16 10:00 81 11/22/16 08:06 94 40 11/22/16 08:00 40 11/22/16 08:00 98.7 93 12 145/93 (110) 94 11/22/16 08:00 86 11/22/16 06:00 87 11/22/16 04:21 93 40 11/22/16 04:00 90 11/22/16 04:00 98.2 90 44 148/66 (93) 93 11/22/16 04:00 40 11/22/16 02:00 78 11/22/16 00:57 96 40 11/22/16 00:00 68 11/22/16 00:00 40 11/22/16 00:00 98.0 68 12 128/62 (84) 93 11/21/16 22:00 70 11/21/16 20:22 97 40 11/21/16 20:00 97.8 90 44 147/65 (92) 98 11/21/16 20:00 90 11/21/16 20:00 40 I/O 11/21/16 11/21/16 11/21/16 11/22/16 11/22/16 11/22/16 06:59 14:59 22:59 06:59 14:59 22:59 Intake Total 1269 ml 300 ml 756 ml 1208 ml 1037 ml Output Total 850 ml 1500 ml 750 ml 1150 ml Balance 419 ml 300 ml -744 ml 458 ml -113 ml IV Total 283 ml 300 ml 271 ml 275 ml Tube Feeding 486 ml 506 ml 437 ml 462 ml Other 500 ml 250 ml 500 ml 300 ml Output Urine Total 850 ml 1500 ml 750 ml 1150 ml # Bowel Movements 3 1 1 Result Diagram: 11/20/1645011/20/16450 Objective Remarks GENERAL: MBMN WF, intubated, sedated SKIN: Warm and dry. HEAD: Normocephalic. EYES: No scleral icterus. No injection or drainage. NECK: Supple, trachea midline. No JVD or lymphadenopathy. CARDIOVASCULAR: Regular rate and rhythm without murmurs, gallops, or rubs. RESPIRATORY: Breath sounds equal bilaterally. No accessory muscle use. GASTROINTESTINAL: Abdomen soft, non-tender, nondistended. MUSCULOSKELETAL: No cyanosis, or edema. BACK: Nontender without obvious deformity. No CVA tenderness. A/P Assessment and Plan VDRF Pneumonia Aspiration DM Dementia Ventriculomegaly Squamous cell ca PLAN: Vent Support -AC 12, Fi02 40% Cont Abx Aerosol nebs SQ Heparin Code status DNR Prognosis poor Awaiting decision by [employer] for Gricelda scott Arjun Dev MD Nov 22, 2016 18:31
[2016-11-22] MEDS: LABETALOL HCL 100 MG/20 ML VIAL IV PUSH PRN (21:09)
[2016-11-23] VITALS (18 sets, daily range): BP systolic 139–167; BP diastolic 60–83; PULSE 75–125; RESP 12–48; TEMP 97.6–99.9; O2SAT 93–96
[2016-11-23] MEDS: INSULIN NovoLIN REGULAR SUPPLEMENTAL SCALE SQ SCH ×4 (02:00→21:11)
[2016-11-23] MEDS: levETIRAcetam INJ 500 MG in SODIUM CHLORIDE 0.9% INJ 100 ML IV SCH ×2 (03:38→15:17)
[2016-11-23] MEDS: CHLORHEXIDINE GLUCONATE 2 % 1 PACK (2 CLOTHS) TOP SCH (03:38)
[2016-11-23] MEDS: ARTIFICIAL TEARS OPTH SOLN 15 ML BTL EACH EYE SCH ×3 (06:34→21:10)
[2016-11-23] MEDS: METOPROLOL TARTRATE 50 MG TAB PO SCH ×3 (06:35→21:09)
[2016-11-23] MEDS: cloNIDine HCL 0.3 MG TAB PO SCH ×3 (06:35→21:09)
[2016-11-23] MEDS: FREE WATER NG SCH ×3 (06:35→22:00)
[2016-11-23] MEDS: HEPARIN SODIUM - SQ 10,000 UNITS/ML VIAL SQ SCH ×3 (08:19→17:01)
[2016-11-23] MEDS: INSULIN DETEMIR 100 UNITS/ML VIAL SQ SCH ×2 (08:21→21:10)
[2016-11-23] MEDS: DOCUSATE SODIUM 100 MG/10 ML UDC PO SCH ×2 (08:22→21:08)
[2016-11-23] MEDS: PROPOFOL 1000 MG/100 ML INJ 100 ML IV PRN ×2 (08:22→15:17)
[2016-11-23] MEDS: LACTOBACILLUS ACIDOPHILUS TAB PO SCH ×3 (08:22→17:01)
[2016-11-23] MEDS: FAMOTIDINE 20 MG TAB PO SCH ×2 (08:22→21:09)
[2016-11-23] MEDS: CHLORHEXIDINE 0.12% (ORAL KIT) 15 ML CUP MT SCH ×2 (08:23→19:49)
[2016-11-23] MEDS: SODIUM CHLORIDE 0.9% FLUSH 10 ML FLUSH IV FLUSH SCH ×2 (08:24→21:09)
[2016-11-23] MEDS: MUPIROCIN 2% OINT 1 APPLIC/GM SYR EACH NARE SCH ×2 (08:24→20:39)
--- NOTE | 2016-11-23 10:57 | HHI.CCPN ---
Subjective Remarks/Hospital Course HPI 70-year-old [facility] resident with a medical history significant for dementia, diabetes mellitus, hyperlipidemia, reactive airway disease who was found to have altered mental status at the [facility] for which EMS was called. Patient was noted to have O2 sats in the 70s. She was very apneic with her head slumped down. Paramedics report of having to hold her head up to have her breathe with the nebulizer treatment in place. Patient was given Solu- Medrol 125 mg IV and 4 nebulizer treatments prior to arrival in the ER for documentation. On arrival in the ER patient was extremely lethargic however was reportedly able to answer some questions. Patient was felt not to be able to protect her airway as well as very hypoxic and hence was intubated by ER physician and placed on mechanical ventilation. Chest x-ray in the ER showed bilateral infiltrates and possible cavitary lesion. She was accepted for admission by critical care medicine service. CT chest was ordered by ER physician. When I evaluated the patient in the ER she was sedated with propofol , orally intubated on mechanical ventilation. History was obtained by reviewing records and discussion with ER physician. 10/29 Patient is sedated with Diprivan and intubated. Afebrile. 10/30 Patient remains sedated and intubated. T:99.7 last night. 10/31: Intubated sedated. CT reviewed and discussed with Dr. Madison. Will consider Bronch. Also check thyroid US and possible biopsy. Check thyroid studies. Also consult palliative care as patient has underlying dementia with NPH and possible malignancy. 11/01: Tmax 100.3. Plan for bronchoscopy at 3:00 today. Noted thyroid masses chronic/since 2011. Tolerating tube feeding. Positive BM. 11/02: Tmax 100.1. Status post bronchoscopy yesterday with removal of mucous plugging. Tolerating tube feeds. Positive BM. Weaning propofol sedation today. 11/03: Tmax 100.6. Noted elevated leukocytosis. Weaning sedation. Positive BM. Tolerate tube feeding. 11/04: Afebrile. UA negative. C. difficile pending. 4 bowel movement overnight. Tolerating tube feeding. No new issues. 11/05 Patient is sedated with Diprivan and intubated. T:100.7. Given Labetalol 10mg IV x3 for hypertension overnight. 11/06 No events overnight. Off sedation. T: 101.5 last night. 11/07: Tmax 102. Currently 100.6. Continues off sedation. Eyes are open to voice but not falling commands. Noted MRI brain unchanged. MRI C-spine revealed no cord compression or cord abnormality's. Severe C5/6 right foraminal narrowing 11/08: Remains intubated sedated, intermittently opens eyes. Per palliative care , visual communications instructor requesting letter of certification from treatment team. Prior to making a decision to withdraw from life support, the visual communications instructor is requesting a letter from the covering physicians certifying that she is hospice appropriate and palliative rather than aggressive treatment is appropriate. Dr. Madison thinks hospice is appropriate but also recommends Oncology input. I have consulted medical oncology 11/09 Patient remains intubated, on no sedation, Tmax 103.1 gets tachypneic with CPAP trials 11/10 Patient is intubated had T:100.3 last night. Doesn't follow commands. 11/11 No events overnight. Placed on Precedex drip yesterday to facilitate with weaning trials. T: 99.7. Awake looking around with her eyes but does not following commands. 11/12 Patient remains intubated. On Precedex drip. Did not tolerate CPAP trials yesterday. 11/13 No events overnight. Intubated doesn't tolerate CPAP trials. T:100.5 last night. 11/14 Patient remains intubated. Off sedation. T;100.1 11/15 No events overnight. Intubated. T:100.8 last night. 11/16: Tmax 99.5. Currently resting in bed in no acute distress. Eyes are open but does not follow commands. Off all sedation. Tolerating tube feeding. Positive BM. 11/17: Tmax 100.1. Resting blood eyes open not falling commands. Off all sedation. Tolerating tube feeds. Intermittently hypertensive. 11/18: Tmax 99.5. Moving head back and forth and following commands weakly with bilateral upper extremities. Tolerating tube feeds. Off all sedation 7 days. Subjective 11/19: Asynchronous with the vent. Now on propofol. Probable withdrawal of care today according to palliative care. Waiting to hear back from guardian 11/20: Waiting for visual communications instructor's order to permit withdrawal from ventilator, and comfort measures. At this time patient is sedated with propofol. Fentanyl as needed 11/21: Sedated with propofol appears comfortable. Bilateral course breath sounds. IV Bumex and DuoNeb ordered 11/22: Patient remains on the vent breathing comfortably on propofol. Bilateral wheezing has improved. No further decision had been made regarding date of withdrawal. 11/23: No change in condition, comfortable on propofol. Patient is synchronous with the ventilator Objective Vital Signs Date Time Temp Pulse Resp B/P (MAP) Pulse Ox O2 Delivery O2 Flow Rate FiO2 11/23/16 10:00 88 11/23/16 08:13 95 40 11/23/16 08:00 97.6 12 139/60 (86) Intake and Output 11/23/16 11/23/16 11/24/16 08:00 16:00 00:00 Intake Total 1078 ml Output Total 1550 ml Balance -472 ml Result Diagram: 11/20/16 0451 11/20/16 0451 Imaging Last Impressions Chest X-Ray 11/18/16 0600 Signed Impressions: Service Date/Time: Friday, November 18, 2016 04:04 - CONCLUSION: Some improvement involving the diffuse bilateral pulmonary infiltrates. Eric Levine Jr., MD Cervical Spine MRI 11/06/16 0000 Signed Impressions: Service Date/Time: Sunday, November 06, 2016 21:36 - CONCLUSION: 1. Multilevel degenerative changes of the cervical spine as above, especially C5/ C6 and C6/C7. 2. Mild to moderate spinal stenosis and severe right foraminal stenosis at C5/C6. 3. Mild spinal stenosis and moderate right foraminal stenosis at C6/C7. 4. No cord compression or cord signal abnormality. 5. No fracture or subluxation. 6. Large nodule of the left lobe of the thyroid gland. There are also upper limits of normal bilateral cervical lymph nodes. Keshav Burks MD Brain MRI 11/06/16 0000 Signed Impressions: Service Date/Time: Sunday, November 06, 2016 21:36 - CONCLUSION: 1. No change or acute abnormality demonstrated. 2. Atrophy, ventriculomegaly and chronic white matter changes are again noted. Keshav Burks MD Thyroid Ultrasound 10/31/16 0000 Signed Impressions: Service Date/Time: Monday, October 31, 2016 11:47 - CONCLUSION: Large complex mass right lobe of the thyroid. Minimally increased in size since Jacoby Torre MD FACR Abdomen X-Ray 10/29/16 0000 Signed Impressions: Service Date/Time: Saturday, October 29, 2016 15:32 - CONCLUSION: Negative for radiopaque foreign bodies. Jacoby Torre MD FACR Chest CT 10/28/16 1814 Signed Impressions: Service Date/Time: Friday, October 28, 2016 18:28 - CONCLUSION: 1. Abnormality on chest radiograph corresponds to a 3.4 x 3.5 cm central right hilar mass/adenopathy with associated postobstructive airspace consolidation in the inferior right upper lobe. There are at least 2 additional pulmonary nodules measuring 13 x 8 mm in the anterior right middle lobe and 8 x 8 mm in the anterior right upper lobe near the apex. 2. 3.9 x 4.3 cm heterogeneous nodule in the right thyroid gland. No significant regional cervical adenopathy. 3. Patchy bilateral lower lobe air space consolidation and diffuse ground glass opacities. Differential considerations include ARDS versus infection versus aspiration. 1. Tyler Selby MD Head CT 10/28/16 0000 Signed Impressions: Service Date/Time: Friday, October 28, 2016 20:44 - CONCLUSION: 1. No bleed or evidence of acute infarction. 2. Atrophy and chronic white matter changes. 3. Moderate ventriculomegaly, beyond that expected for the degree of atrophy. Normal pressure hydrocephalus would be in the differential. Keshav Burks MD Objective Remarks GENERAL: 71-year-old female, critically ill currently orotracheally intubated, sedated with propofol SKIN: Warm and dry. HEENT: Atraumatic. Normocephalic. Pupils equal and round. No scleral icterus. No injection or drainage. Orotracheally intubated NECK: Trachea midline. No JVD. Right-sided thyromegaly/palpable mass noted CARDIOVASCULAR: Tachycardic, RR. S1, S2 no S4. Without murmur RESPIRATORY: Coarse crackles appreciated bilaterally, bilateral rhonchi. GASTROINTESTINAL: Abdomen soft, non-tender, nondistended. Hepatic and splenic margins not palpable. MUSCULOSKELETAL: Extremities bilateral trace nonpitting lower extremity edema. No obvious deformities. NEUROLOGICAL: Positive gag. Positive corneal reflex. Heavily sedated on propofol A/P Assessment and Plan Neuro/Psych: Depression/anxiety Toxic metabolic encephalopathy Ventriculomegaly History of dementia On propofol for vent synchrony, monitor neuro status. As needed fentanyl 50 every 2 hours when necessary pain EEG 11/06 revealed triphasic sway/diffuse sharp waves likely moderate encephalopathy cannot rule out proclivity of seizure Neuro Dr. Sampson. CT brain: Moderate ventriculomegaly, beyond that expected for the degree of atrophy. MRI confirms. Neurosurgery has followed- Dr. Hernandez No acute intervention Currently holding home medications clonazepam 0.5 mg twice a day and quetiapine 25 mg at night On levetiracetam 500 mg IV twice a day per neurology's EEG above CV: Hypertension Dyslipidemia On Lopressor 50mg Q8, amlodipine 10mg daily, Clonidine 0.3mg Q8 As needed hydralazine and labetalol and Nitropaste for hypertension Holding atorvastatin 40 mg by mouth daily for dyslipidemia. Pulm Acute hypoxemic respiratory failure possibly secondary to post obstructive pneumonia Squamous cell carcinoma of Lung [facility] /0//. Ventilator bundle. No further weaning trials. Awaiting order from visual communications instructor for ventilator withdrawal Albuterol/ipratropium aerosols every 6 hours with albuterol aerosols every [address] chest reviewed revealed 3.4 x 2.5 right hilar mass with post discharge pneumonia in the right upper lobe. Right middle lobe mass. Pulm is following- Dr. Madison, s/p bronch with BAL 11/01. Cytology positive ( squamous cell carcinoma) Renal/: Hypernatremia - resolved Monitor renal function, I/O's, electrolytes replacement per protocol. Free water 250 cc every 8 hours tube feeds GI/liver: Mild protein calorie malnutrition Continue with Glucerna 1.5 at 40 cc an hour On famotidine 20mg BID for GI prophylaxis Docusate sodium 100 mg twice a day for bowel regimen ID: Escherichia coli UTI Postobstructive pneumonia Continue with abx per ID (fluconazole, aztreonam, meropenem) monitor for signs of infections ( Fever, WBC). Sputum cx 11/09: Pseudomonas, Staph Aureus Follow up on cultures and bronchoscopy 11/01- Yeast species BC 11/04: NGTD Blood cultures 2 - 11/06 - NGTD Sputum 11/06 ESBL E Coli, PSAE, Staph. Strep pneumonia urinary Ag negative. ID has followed Urine cx 10/28: E COLI Heme: Leukocytosis Normocytic anemia Likely SCC lung Monitor CBC. Patient has hilar mass with pulmonary nodules, also thyroid mass. Seen by Oncology-Dr. Xavier patient is not candidate for surgery, chemo radiation give poor performance status, hospice was recommended. Endocrine: Diabetes mellitus Right thyroid mass 6.8 cm/chronic Detemir 20 units Q12 On SSI medium scale Novolin R for glycemic control. Patient is on insulin glargine at home Prophylaxis: Famotidine 20 mg twice a day via OG tube, SCDs/subcutaneous heparin Level 1 follow-up Awaiting order from visual communications instructor for ventilator withdrawal, palliative care following. No further update at this time Trevor Parr MD Nov 23, 2016 10:57
--- NOTE | 2016-11-23 15:34 | HHI.PR ---
Subjective Remarks 70 YOWF with VDRF,Pneumonia, ? Aspiration Bronchial wash Sq cell ca Mod amount of trach secretions. No fever Sedated with Diprivan. Objective Vital Signs Vital Signs Date Time Temp Pulse Resp B/P (MAP) Pulse Ox O2 Delivery O2 Flow Rate FiO2 11/23/16 12:53 95 40 11/23/16 12:00 97.8 99 13 155/78 (103) 95 11/23/16 12:00 40 11/23/16 12:00 99 11/23/16 10:00 88 11/23/16 08:13 95 40 11/23/16 08:00 97.6 95 12 139/60 (86) 96 11/23/16 08:00 95 11/23/16 08:00 40 11/23/16 06:00 125 11/23/16 04:16 93 40 11/23/16 04:00 107 11/23/16 04:00 40 11/23/16 04:00 99.8 107 25 167/61 (96) 93 11/23/16 02:00 96 11/23/16 01:12 93 40 11/23/16 00:00 97 11/23/16 00:00 40 11/23/16 00:00 99.9 97 48 144/83 (103) 94 11/22/16 22:07 93 40 11/22/16 22:00 109 11/22/16 20:00 100.2 109 14 171/67 (101) 93 11/22/16 20:00 109 11/22/16 20:00 40 11/22/16 19:20 95 40 11/22/16 18:00 105 11/22/16 16:24 94 40 11/22/16 16:00 100 11/22/16 16:00 98.3 100 12 149/93 (111) 94 11/22/16 16:00 40 I/O 11/22/16 11/22/16 11/22/16 11/23/16 11/23/16 11/23/16 07:00 15:00 23:00 07:00 15:00 23:00 Intake Total 1208 ml 1037 ml 1078 ml Output Total 750 ml 1150 ml 1550 ml Balance 458 ml -113 ml -472 ml IV Total 271 ml 275 ml Tube Feeding 437 ml 462 ml 578 ml Other 500 ml 300 ml 500 ml Output Urine Total 750 ml 1150 ml 1550 ml # Bowel Movements 1 Result Diagram: 11/20/1645011/20/16450 Objective Remarks GENERAL: MBMN WF, intubated, sedated SKIN: Warm and dry. HEAD: Normocephalic. EYES: No scleral icterus. No injection or drainage. NECK: Supple, trachea midline. No JVD or lymphadenopathy. CARDIOVASCULAR: Regular rate and rhythm without murmurs, gallops, or rubs. RESPIRATORY: Breath sounds equal bilaterally. No accessory muscle use. GASTROINTESTINAL: Abdomen soft, non-tender, nondistended. MUSCULOSKELETAL: No cyanosis, or edema. BACK: Nontender without obvious deformity. No CVA tenderness. A/P Assessment and Plan VDRF Pneumonia Aspiration DM Dementia Ventriculomegaly Squamous cell ca PLAN: Vent Support -AC 12, Fi02 40% Cont Abx Aerosol nebs SQ Heparin Code status DNR Prognosis poor Luis Madison MD Nov 23, 2016 15:34
--- NOTE | 2016-11-23 19:10 | HHI.HCPN ---
Reason for visit a. To assist with evaluation and management of symptoms including: dyspnea, debility. b. To assist medical decision maker(s) with: better understanding of current medical conditions; weighing benefits/burdens of medical treatment options; making medical treatment decisions. . Subjective/Interval History Patient seen and examined in ICU. Discussed with nurse and Dr. Parr and Dr. Gong. Patient remains in ICU on vent with unlabored respirations on vent. No significant clinical change. Thick yellowish secretions noted. Overall poor prognosis. . Family/friend interactions Spoke with son at bedside, he verbalizes frustration with the court system in delaying withdrawal of life support decision stating this is "inhumane." Advised we are keeping the patient sedated and comfortable and he verbalizes the appreciation. Spoke with COA legal guardian on a [facility], monalisaiting Knee Bolter Silvano decision regarding withdrawal of life support. [place] indicates tentatively on the docket for 11/29/16. . Advance Directives Living Will: Never completed Health Care Surrogate: Never completed Durable Power of Manager Provider Relations: Never completed Advance Directive Specifics Health Care Surrogate(s): Patient has a court appointed guardian, [place] [facility]. . Significant change in goals: NO CODE. No further escalation of care. Awaiting Knee Bolter order for withdrawal of life support. . Objective Vital Signs Date Time Temp Pulse Resp B/P (MAP) Pulse Ox O2 Delivery O2 Flow Rate FiO2 11/23/16 18:00 82 11/23/16 16:00 40 11/23/16 16:00 94 40 11/23/16 16:00 93 11/23/16 16:00 98.4 93 12 156/69 (98) 95 11/23/16 14:00 78 11/23/16 12:53 95 40 11/23/16 12:00 97.8 99 13 155/78 (103) 95 11/23/16 12:00 40 11/23/16 12:00 99 11/23/16 10:00 88 11/23/16 08:13 95 40 11/23/16 08:00 97.6 95 12 139/60 (86) 96 11/23/16 08:00 95 11/23/16 08:00 40 11/23/16 06:00 125 11/23/16 04:16 93 40 11/23/16 04:00 107 11/23/16 04:00 40 11/23/16 04:00 99.8 107 25 167/61 (96) 93 11/23/16 02:00 96 11/23/16 01:12 93 40 11/23/16 00:00 97 11/23/16 00:00 40 11/23/16 00:00 99.9 97 48 144/83 (103) 94 11/22/16 22:07 93 40 11/22/16 22:00 109 11/22/16 20:00 100.2 109 14 171/67 (101) 93 11/22/16 20:00 109 11/22/16 20:00 40 11/22/16 19:20 95 40 Physical Exam CONSTITUTIONAL/GENERAL: This is an elderly, critically, chronically ill patient, on mech vent. TUBES/LINES/DRAINS: PIV, ETT, OGT, Jang catheter, SCDs EYES: eyes open. CARDIOVASCULAR: Regular rate and rhythm without murmurs, gallops, or rubs. RESPIRATORY/CHEST: mildly labored respirations on mech vent. GASTROINTESTINAL: Abdomen soft, round, large. No guarding. Bowel sounds present. GENITOURINARY: Without palpable bladder distension. Jang catheter in place. MUSCULOSKELETAL: Extremities without clubbing, cyanosis. Edema to bilateral extremities. No mottling or clubbing. NEUROLOGICAL: Intubated. Eyes open, biting on ET tube. Not following commands. Not responding to tactile or verbal stimuli. PSYCHIATRIC: Awake. . Diagnostic Tests Result Diagram: 11/20/16 0451 11/20/16 045 Microbiology Microbiology Date/Time Source Procedure Growth Status 11/09/16 09:58 Blood Peripheral Aerobic Blood Culture - Final NO GROWTH IN 5 DAYS Complete 11/09/16 09:58 Blood Peripheral Anaerobic Blood Culture - Final NO GROWTH IN 5 DAYS Complete 11/09/16 09:30 Sputum Endotracheal Gram Stain - Final Complete 11/09/16 09:30 Sputum Culture - Final Pseudomonas Aeruginosa Staphylococcus Aureus Complete 11/09/16 09:30 Urine Catheterized Urine Urine Culture - Final NO GROWTH IN 48 HOURS. Complete 10/28/16 17:00 Other - Final Complete Imaging Last Impressions Chest X-Ray 11/19/16 0600 Signed Impressions: Service Date/Time: Saturday, November 19, 2016 03:49 - CONCLUSION: No significant change Keshav Vora MD Cervical Spine MRI 11/06/16 0000 Signed Impressions: Service Date/Time: Sunday, November 06, 2016 21:36 - CONCLUSION: 1. Multilevel degenerative changes of the cervical spine as above, especially C5/ C6 and C6/C7. 2. Mild to moderate spinal stenosis and severe right foraminal stenosis at C5/C6. 3. Mild spinal stenosis and moderate right foraminal stenosis at C6/C7. 4. No cord compression or cord signal abnormality. 5. No fracture or subluxation. 6. Large nodule of the left lobe of the thyroid gland. There are also upper limits of normal bilateral cervical lymph nodes. Keshav Burks MD Brain MRI 11/06/16 0000 Signed Impressions: Service Date/Time: Sunday, November 06, 2016 21:36 - CONCLUSION: 1. No change or acute abnormality demonstrated. 2. Atrophy, ventriculomegaly and chronic white matter changes are again noted. Keshav Burks MD Thyroid Ultrasound 10/31/16 0000 Signed Impressions: Service Date/Time: Monday, October 31, 2016 11:47 - CONCLUSION: Large complex mass right lobe of the thyroid. Minimally increased in size since Jacoby Torre MD FACR Abdomen X-Ray 10/29/16 0000 Signed Impressions: Service Date/Time: Saturday, October 29, 2016 15:32 - CONCLUSION: Negative for radiopaque foreign bodies. Jacoby Torre MD FACR Chest CT 10/28/16 1814 Signed Impressions: Service Date/Time: Friday, October 28, 2016 18:28 - CONCLUSION: 1. Abnormality on chest radiograph corresponds to a 3.4 x 3.5 cm central right hilar mass/adenopathy with associated postobstructive airspace consolidation in the inferior right upper lobe. There are at least 2 additional pulmonary nodules measuring 13 x 8 mm in the anterior right middle lobe and 8 x 8 mm in the anterior right upper lobe near the apex. 2. 3.9 x 4.3 cm heterogeneous nodule in the right thyroid gland. No significant regional cervical adenopathy. 3. Patchy bilateral lower lobe air space consolidation and diffuse ground glass opacities. Differential considerations include ARDS versus infection versus aspiration. 1. Tyler Selby MD Head CT 10/28/16 0000 Signed Impressions: Service Date/Time: Friday, October 28, 2016 20:44 - CONCLUSION: 1. No bleed or evidence of acute infarction. 2. Atrophy and chronic white matter changes. 3. Moderate ventriculomegaly, beyond that expected for the degree of atrophy. Normal pressure hydrocephalus would be in the differential. Keshav Burks MD Procedures 11/01/16 Bronchoscopy 10/28/16 Intubated and mechanically ventilated . Assessment and Plan Disease Oriented Problem List: (1) Acute respiratory failure requiring reintubation (2) Sepsis (3) Pulmonary nodules (4) Normal pressure hydrocephalus (5) Diabetes mellitus (6) Thyroid mass Symptom Scale: (1) Shortness of breath 0-10 Scale: Unable to quantify Comment: Intubated and mechanically ventilated. . (2) Debility 0-10 Scale: Unable to quantify Comment: Resident of a long-term facility, requiring assistance with ADLs. Progressive debility. . Pertinent Non-Medical Issues Psychosocial: Patient is a resident at a residential care facility. As per prior medical records from 2007, patient has two sons who reside in the area. Per court appointed guardian, one son is and the other son who once served as patient`s DPOA was not fulfilling his duties and the court appointed a guardian for the patient. 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 Spiritual: Unable to obtain, patient is intubated on mechanical ventilation and sedated. Legal: Patient has a court appointed guardian. Ethical issues impacting care: Patient has a court appointed guardian.Patient has a signed DNR in 2010 by her son prior to court appointed guardian. . Important Contacts [place] Lyons/[place] [facility]- Court appointed guardian . Prognosis Ms Dalton is a 70 years old female with a medical history of diabetes mellitus, dementia, thyroid disease, anxiety, depression and hyperlipemia, and reactive airway disease. Patient presented to the ED 10/28/16 via EMS after complaining of shortness of breath. Patient was intubated and placed on mechanical ventilation secondary to acute hypoxemic respiratory failure. 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 Patient's prognosis is guarded. Patient at high risk for further complications, clinical decline and given the above. . Code Status: No Code Plan * Legal decision maker: Patient has COA guardian, [place] Lyons. * NO CODE - per legal recommendation to honor prior [place] DNR order. * Goals: Spoke with COA guardian, [place] Lyons, sonArun plan remains to proceed with withdrawal of life support wants dental equipment mechanic Silvano order is received. [place] indicates tentative determination on 11/29/16. Medical update provided. All are in agreement that patient would want to transition to comfort measures with withdrawal of life support. Anticipatory guidance provided regarding withdrawal of life support. Will want hospice at the time of withdrawal and likely transfer to care center if stable for transport after withdrawal. [place] reports she need a court order for withdrawal of life support from the dental equipment mechanic, will request emergency order from Knee Bolter. She will call when order is obtained to coordinate timing with son and hospice and COA. No further escalation of care in the meantime. * SYMPTOMS: Respiratory distress/ dyspnea - patient remains intubated on mechanical ventilation. Patient failing CPAP trials, gets tachypneic. Sputum culture positive for Escherichia coli, ESBL positive, pseudomonas aeruginosa, methicillin-resistant staph aureus. ID following. Debility - admitted from a halfway with significant debility, she has been on bed rest, mechanically ventilated. No new medication recommendations at this time. Will assist with transition to comfort orders at the time to transition to comfort. * Palliative care will continue to follow the patient during hospital course as condition evolves, to assist patient/decision-maker with understanding of their medical conditions, weighing benefits/burdens of treatment options, for clarification of goals of treatment. Additionally will assist with any symptoms of palliative concern. . Attestation To help prompt me to consider important information that might be impacting today's encounter and assessment, information from prior notes written by myself or my colleagues may have been "brought forward" into today's note. My signature on this note, however, is an attestation that I personally performed the exam, history, and/or decision-making noted today, and, unless otherwise indicated, the interactions with patient, family, and staff as well as the review of records all occurred today. I also attest that the listed assessment and stated plan reflect my best clinical judgment today based on the combination of historical information, prior notes, and today's exam/ interactions. When time spent is documented, it refers only to time spent today by the signer, or if indicated, combined time spent today by collaborating physician/nurse practitioner. Mirlande Pak Nov 23, 2016 19:10
[2016-11-24] VITALS (18 sets, daily range): BP systolic 121–169; BP diastolic 60–80; PULSE 81–119; RESP 12–21; TEMP 98.9–100.7; O2SAT 91–100
[2016-11-24] MEDS: HEPARIN SODIUM - SQ 10,000 UNITS/ML VIAL SQ SCH ×4 (00:29→22:41)
[2016-11-24] MEDS: levETIRAcetam INJ 500 MG in SODIUM CHLORIDE 0.9% INJ 100 ML IV SCH ×2 (03:00→14:47)
[2016-11-24] MEDS: INSULIN NovoLIN REGULAR SUPPLEMENTAL SCALE SQ SCH ×4 (03:14→20:00)
[2016-11-24] MEDS: CHLORHEXIDINE GLUCONATE 2 % 1 PACK (2 CLOTHS) TOP SCH (04:00)
[2016-11-24] MEDS: cloNIDine HCL 0.3 MG TAB PO SCH ×3 (06:00→22:39)
[2016-11-24] MEDS: ARTIFICIAL TEARS OPTH SOLN 15 ML BTL EACH EYE SCH ×3 (06:00→22:39)
[2016-11-24] MEDS: METOPROLOL TARTRATE 50 MG TAB PO SCH ×3 (06:00→22:39)
[2016-11-24] MEDS: FREE WATER NG SCH (06:00)
[2016-11-24] MEDS: FAMOTIDINE 20 MG TAB PO SCH ×2 (08:17→22:39)
[2016-11-24] MEDS: LACTOBACILLUS ACIDOPHILUS TAB PO SCH ×3 (08:17→18:00)
[2016-11-24] MEDS: MUPIROCIN 2% OINT 1 APPLIC/GM SYR EACH NARE SCH ×2 (08:17→22:39)
[2016-11-24] MEDS: SODIUM CHLORIDE 0.9% FLUSH 10 ML FLUSH IV FLUSH SCH ×2 (08:17→22:39)
[2016-11-24] MEDS: DOCUSATE SODIUM 100 MG/10 ML UDC PO SCH ×2 (08:17→21:00)
[2016-11-24] MEDS: CHLORHEXIDINE 0.12% (ORAL KIT) 15 ML CUP MT SCH ×2 (08:18→22:39)
[2016-11-24] MEDS: INSULIN DETEMIR 100 UNITS/ML VIAL SQ SCH ×2 (08:18→21:00)
[2016-11-24] MEDS: PROPOFOL 1000 MG/100 ML INJ 100 ML IV PRN ×3 (08:26→22:08)
--- NOTE | 2016-11-24 11:44 | HHI.CCPN ---
Subjective Remarks/Hospital Course HPI 70-year-old shelter resident with a medical history significant for dementia, diabetes mellitus, hyperlipidemia, reactive airway disease who was found to have altered mental status at the shelter for which EMS was called. Patient was noted to have O2 sats in the 70s. She was very apneic with her head slumped down. Paramedics report of having to hold her head up to have her breathe with the nebulizer treatment in place. Patient was given Solu- Medrol 125 mg IV and 4 nebulizer treatments prior to arrival in the ER for documentation. On arrival in the ER patient was extremely lethargic however was reportedly able to answer some questions. Patient was felt not to be able to protect her airway as well as very hypoxic and hence was intubated by ER physician and placed on mechanical ventilation. Chest x-ray in the ER showed bilateral infiltrates and possible cavitary lesion. She was accepted for admission by critical care medicine service. CT chest was ordered by ER physician. When I evaluated the patient in the ER she was sedated with propofol , orally intubated on mechanical ventilation. History was obtained by reviewing records and discussion with ER physician. 10/29 Patient is sedated with Diprivan and intubated. Afebrile. 10/30 Patient remains sedated and intubated. T:99.7 last night. 10/31: Intubated sedated. CT reviewed and discussed with Dr. Madison. Will consider Bronch. Also check thyroid US and possible biopsy. Check thyroid studies. Also consult palliative care as patient has underlying dementia with NPH and possible malignancy. 11/01: Tmax 100.3. Plan for bronchoscopy at 3:00 today. Noted thyroid masses chronic/since 2011. Tolerating tube feeding. Positive BM. 11/02: Tmax 100.1. Status post bronchoscopy yesterday with removal of mucous plugging. Tolerating tube feeds. Positive BM. Weaning propofol sedation today. 11/03: Tmax 100.6. Noted elevated leukocytosis. Weaning sedation. Positive BM. Tolerate tube feeding. 11/04: Afebrile. UA negative. C. difficile pending. 4 bowel movement overnight. Tolerating tube feeding. No new issues. 11/05 Patient is sedated with Diprivan and intubated. T:100.7. Given Labetalol 10mg IV x3 for hypertension overnight. 11/06 No events overnight. Off sedation. T: 101.5 last night. 11/07: Tmax 102. Currently 100.6. Continues off sedation. Eyes are open to voice but not falling commands. Noted MRI brain unchanged. MRI C-spine revealed no cord compression or cord abnormality's. Severe C5/6 right foraminal narrowing 11/08: Remains intubated sedated, intermittently opens eyes. Per palliative care , diving judge requesting letter of certification from treatment team. Prior to making a decision to withdraw from life support, the diving judge is requesting a letter from the covering physicians certifying that she is hospice appropriate and palliative rather than aggressive treatment is appropriate. Dr. Madison thinks hospice is appropriate but also recommends Oncology input. I have consulted medical oncology 11/09 Patient remains intubated, on no sedation, Tmax 103.1 gets tachypneic with CPAP trials 11/10 Patient is intubated had T:100.3 last night. Doesn't follow commands. 11/11 No events overnight. Placed on Precedex drip yesterday to facilitate with weaning trials. T: 99.7. Awake looking around with her eyes but does not following commands. 11/12 Patient remains intubated. On Precedex drip. Did not tolerate CPAP trials yesterday. 11/13 No events overnight. Intubated doesn't tolerate CPAP trials. T:100.5 last night. 11/14 Patient remains intubated. Off sedation. T;100.1 11/15 No events overnight. Intubated. T:100.8 last night. 11/16: Tmax 99.5. Currently resting in bed in no acute distress. Eyes are open but does not follow commands. Off all sedation. Tolerating tube feeding. Positive BM. 11/17: Tmax 100.1. Resting blood eyes open not falling commands. Off all sedation. Tolerating tube feeds. Intermittently hypertensive. 11/18: Tmax 99.5. Moving head back and forth and following commands weakly with bilateral upper extremities. Tolerating tube feeds. Off all sedation 7 days. Subjective 11/19: Asynchronous with the vent. Now on propofol. Probable withdrawal of care today according to palliative care. Waiting to hear back from guardian 11/20: Waiting for diving judge's order to permit withdrawal from ventilator, and comfort measures. At this time patient is sedated with propofol. Fentanyl as needed 11/21: Sedated with propofol appears comfortable. Bilateral course breath sounds. IV Bumex and DuoNeb ordered 11/22: Patient remains on the vent breathing comfortably on propofol. Bilateral wheezing has improved. No further decision had been made regarding date of withdrawal. 11/23: No change in condition, comfortable on propofol. Patient is synchronous with the ventilator 11/24: Wheezing, tachypneic on vent. DuoNeb will be administered by respiratory Objective Vital Signs Date Time Temp Pulse Resp B/P (MAP) Pulse Ox O2 Delivery O2 Flow Rate FiO2 11/24/16 10:00 106 11/24/16 08:00 40 11/24/16 08:00 98.9 15 136/80 (98) 95 Intake and Output 11/24/16 11/24/16 11/25/16 08:00 16:00 00:00 Intake Total 951 ml Output Total 575 ml Balance 376 ml Result Diagram: 11/20/16 0451 11/20/16 0451 Imaging Last Impressions Chest X-Ray 11/18/16 0600 Signed Impressions: Service Date/Time: Friday, November 18, 2016 04:04 - CONCLUSION: Some improvement involving the diffuse bilateral pulmonary infiltrates. Eric Levine Jr., MD Cervical Spine MRI 11/06/16 0000 Signed Impressions: Service Date/Time: Sunday, November 06, 2016 21:36 - CONCLUSION: 1. Multilevel degenerative changes of the cervical spine as above, especially C5/ C6 and C6/C7. 2. Mild to moderate spinal stenosis and severe right foraminal stenosis at C5/C6. 3. Mild spinal stenosis and moderate right foraminal stenosis at C6/C7. 4. No cord compression or cord signal abnormality. 5. No fracture or subluxation. 6. Large nodule of the left lobe of the thyroid gland. There are also upper limits of normal bilateral cervical lymph nodes. Keshav Burks MD Brain MRI 11/06/16 0000 Signed Impressions: Service Date/Time: Sunday, November 06, 2016 21:36 - CONCLUSION: 1. No change or acute abnormality demonstrated. 2. Atrophy, ventriculomegaly and chronic white matter changes are again noted. Keshav Burks MD Thyroid Ultrasound 10/31/16 0000 Signed Impressions: Service Date/Time: Monday, October 31, 2016 11:47 - CONCLUSION: Large complex mass right lobe of the thyroid. Minimally increased in size since Jacoby Torre MD FACR Abdomen X-Ray 10/29/16 0000 Signed Impressions: Service Date/Time: Saturday, October 29, 2016 15:32 - CONCLUSION: Negative for radiopaque foreign bodies. Jacoby Torre MD FACR Chest CT 10/28/16 1814 Signed Impressions: Service Date/Time: Friday, October 28, 2016 18:28 - CONCLUSION: 1. Abnormality on chest radiograph corresponds to a 3.4 x 3.5 cm central right hilar mass/adenopathy with associated postobstructive airspace consolidation in the inferior right upper lobe. There are at least 2 additional pulmonary nodules measuring 13 x 8 mm in the anterior right middle lobe and 8 x 8 mm in the anterior right upper lobe near the apex. 2. 3.9 x 4.3 cm heterogeneous nodule in the right thyroid gland. No significant regional cervical adenopathy. 3. Patchy bilateral lower lobe air space consolidation and diffuse ground glass opacities. Differential considerations include ARDS versus infection versus aspiration. 1. Tyler Selby MD Head CT 10/28/16 0000 Signed Impressions: Service Date/Time: Friday, October 28, 2016 20:44 - CONCLUSION: 1. No bleed or evidence of acute infarction. 2. Atrophy and chronic white matter changes. 3. Moderate ventriculomegaly, beyond that expected for the degree of atrophy. Normal pressure hydrocephalus would be in the differential. Keshav Burks MD Objective Remarks GENERAL: 71-year-old female, critically ill currently orotracheally intubated, sedated with propofol SKIN: Warm and dry. HEENT: Atraumatic. Normocephalic. Pupils equal and round. No scleral icterus. No injection or drainage. Orotracheally intubated NECK: Trachea midline. No JVD. Right-sided thyromegaly/palpable mass noted CARDIOVASCULAR: Tachycardic, RR. S1, S2 no S4. Without murmur RESPIRATORY: Coarse crackles appreciated bilaterally, bilateral wheezes. Tachypneic GASTROINTESTINAL: Abdomen soft, non-tender, nondistended. Hepatic and splenic margins not palpable. MUSCULOSKELETAL: Extremities bilateral trace nonpitting lower extremity edema. No obvious deformities. NEUROLOGICAL: Heavily sedated on propofol A/P Assessment and Plan Neuro/Psych: Depression/anxiety Toxic metabolic encephalopathy Ventriculomegaly History of dementia On propofol for vent synchrony, monitor neuro status. As needed fentanyl 50 every 2 hours when necessary pain EEG 11/06 revealed triphasic sway/diffuse sharp waves likely moderate encephalopathy cannot rule out proclivity of seizure Neuro Dr. Sampson. CT brain: Moderate ventriculomegaly, beyond that expected for the degree of atrophy. MRI confirms. Neurosurgery has followed- Dr. Hernandez No acute intervention Currently holding home medications clonazepam 0.5 mg twice a day and quetiapine 25 mg at night On levetiracetam 500 mg IV twice a day per neurology's EEG above CV: Hypertension Dyslipidemia On Lopressor 50mg Q8, amlodipine 10mg daily, Clonidine 0.3mg Q8 As needed hydralazine and labetalol and Nitropaste for hypertension Holding atorvastatin 40 mg by mouth daily for dyslipidemia. Pulm Acute hypoxemic respiratory failure possibly secondary to post obstructive pneumonia Squamous cell carcinoma of Lung PRVC 12/500/0//. Ventilator bundle. No further weaning trials. Awaiting order from diving judge for ventilator withdrawal Albuterol/ipratropium aerosols every 6 hours with albuterol aerosols every [address] chest reviewed revealed 3.4 x 2.5 right hilar mass with post discharge pneumonia in the right upper lobe. Right middle lobe mass. Pulm is following- Dr. Madison, s/p bronch with BAL 11/01. Cytology positive ( squamous cell carcinoma) Renal/: Hypernatremia - resolved Monitor renal function, I/O's, electrolytes replacement per protocol. Free water 250 cc every 8 hours tube feeds GI/liver: Mild protein calorie malnutrition Continue with Glucerna 1.5 at 40 cc an hour On famotidine 20mg BID for GI prophylaxis Docusate sodium 100 mg twice a day for bowel regimen ID: Escherichia coli UTI Postobstructive pneumonia Continue with abx per ID (fluconazole, aztreonam, meropenem) monitor for signs of infections ( Fever, WBC). Sputum cx 11/09: Pseudomonas, Staph Aureus Follow up on cultures and bronchoscopy 11/01- Yeast species BC 11/04: NGTD Blood cultures 2 - 11/06 - NGTD Sputum 11/06 ESBL E Coli, PSAE, Staph. Strep pneumonia urinary Ag negative. ID has followed Urine cx 10/28: E COLI Heme: Leukocytosis Normocytic anemia Likely SCC lung Monitor CBC. Patient has hilar mass with pulmonary nodules, also thyroid mass. Seen by Oncology-Dr. Xavier patient is not candidate for surgery, chemo radiation give poor performance status, hospice was recommended. Endocrine: Diabetes mellitus Right thyroid mass 6.8 cm/chronic Detemir 20 units Q12 On SSI medium scale Novolin R for glycemic control. Patient is on insulin glargine at home Prophylaxis: Famotidine 20 mg twice a day via OG tube, SCDs/subcutaneous heparin Level 1 follow-up Awaiting order from diving judge for ventilator withdrawal, palliative care following. No further update at this time Trevor Parr MD Nov 24, 2016 11:44
[2016-11-25] VITALS (23 sets, daily range): BP systolic 121–150; BP diastolic 57–66; PULSE 73–98; RESP 3–28; TEMP 98.5–100.6; O2SAT 92–100
[2016-11-25] MEDS: INSULIN NovoLIN REGULAR SUPPLEMENTAL SCALE SQ SCH ×4 (01:32→20:00)
[2016-11-25] MEDS: levETIRAcetam INJ 500 MG in SODIUM CHLORIDE 0.9% INJ 100 ML IV SCH ×2 (01:32→17:01)
[2016-11-25] MEDS: CHLORHEXIDINE GLUCONATE 2 % 1 PACK (2 CLOTHS) TOP SCH (03:53)
[2016-11-25] MEDS: PROPOFOL 1000 MG/100 ML INJ 100 ML IV PRN ×4 (03:53→23:50)
[2016-11-25] MEDS: METOPROLOL TARTRATE 50 MG TAB PO SCH ×3 (05:42→21:46)
[2016-11-25] MEDS: cloNIDine HCL 0.3 MG TAB PO SCH ×3 (05:43→21:45)
[2016-11-25] MEDS: ARTIFICIAL TEARS OPTH SOLN 15 ML BTL EACH EYE SCH ×3 (05:43→21:45)
[2016-11-25] MEDS: DOCUSATE SODIUM 100 MG/10 ML UDC PO SCH ×2 (09:00→21:00)
[2016-11-25] MEDS: INSULIN DETEMIR 100 UNITS/ML VIAL SQ SCH ×2 (09:00→21:45)
[2016-11-25] MEDS: SODIUM CHLORIDE 0.9% FLUSH 10 ML FLUSH IV FLUSH SCH ×2 (09:00→21:47)
--- NOTE | 2016-11-25 09:07 | HHI.CCPN ---
Subjective Remarks/Hospital Course HPI 70-year-old skilled nursing resident with a medical history significant for dementia, diabetes mellitus, hyperlipidemia, reactive airway disease who was found to have altered mental status at the skilled nursing for which EMS was called. Patient was noted to have O2 sats in the 70s. She was very apneic with her head slumped down. Paramedics report of having to hold her head up to have her breathe with the nebulizer treatment in place. Patient was given Solu- Medrol 125 mg IV and 4 nebulizer treatments prior to arrival in the ER for documentation. On arrival in the ER patient was extremely lethargic however was reportedly able to answer some questions. Patient was felt not to be able to protect her airway as well as very hypoxic and hence was intubated by ER physician and placed on mechanical ventilation. Chest x-ray in the ER showed bilateral infiltrates and possible cavitary lesion. She was accepted for admission by critical care medicine service. CT chest was ordered by ER physician. When I evaluated the patient in the ER she was sedated with propofol , orally intubated on mechanical ventilation. History was obtained by reviewing records and discussion with ER physician. 10/29 Patient is sedated with Diprivan and intubated. Afebrile. 10/30 Patient remains sedated and intubated. T:99.7 last night. 10/31: Intubated sedated. CT reviewed and discussed with Dr. Madison. Will consider Bronch. Also check thyroid US and possible biopsy. Check thyroid studies. Also consult palliative care as patient has underlying dementia with NPH and possible malignancy. 11/01: Tmax 100.3. Plan for bronchoscopy at 3:00 today. Noted thyroid masses chronic/since 2011. Tolerating tube feeding. Positive BM. 11/02: Tmax 100.1. Status post bronchoscopy yesterday with removal of mucous plugging. Tolerating tube feeds. Positive BM. Weaning propofol sedation today. 11/03: Tmax 100.6. Noted elevated leukocytosis. Weaning sedation. Positive BM. Tolerate tube feeding. 11/04: Afebrile. UA negative. C. difficile pending. 4 bowel movement overnight. Tolerating tube feeding. No new issues. 11/05 Patient is sedated with Diprivan and intubated. T:100.7. Given Labetalol 10mg IV x3 for hypertension overnight. 11/06 No events overnight. Off sedation. T: 101.5 last night. 11/07: Tmax 102. Currently 100.6. Continues off sedation. Eyes are open to voice but not falling commands. Noted MRI brain unchanged. MRI C-spine revealed no cord compression or cord abnormality's. Severe C5/6 right foraminal narrowing 11/08: Remains intubated sedated, intermittently opens eyes. Per palliative care , tone cabinet assembler requesting letter of certification from treatment team. Prior to making a decision to withdraw from life support, the tone cabinet assembler is requesting a letter from the covering physicians certifying that she is hospice appropriate and palliative rather than aggressive treatment is appropriate. Dr. Madison thinks hospice is appropriate but also recommends Oncology input. I have consulted medical oncology 11/09 Patient remains intubated, on no sedation, Tmax 103.1 gets tachypneic with CPAP trials 11/10 Patient is intubated had T:100.3 last night. Doesn't follow commands. 11/11 No events overnight. Placed on Precedex drip yesterday to facilitate with weaning trials. T: 99.7. Awake looking around with her eyes but does not following commands. 11/12 Patient remains intubated. On Precedex drip. Did not tolerate CPAP trials yesterday. 11/13 No events overnight. Intubated doesn't tolerate CPAP trials. T:100.5 last night. 11/14 Patient remains intubated. Off sedation. T;100.1 11/15 No events overnight. Intubated. T:100.8 last night. 11/16: Tmax 99.5. Currently resting in bed in no acute distress. Eyes are open but does not follow commands. Off all sedation. Tolerating tube feeding. Positive BM. 11/17: Tmax 100.1. Resting blood eyes open not falling commands. Off all sedation. Tolerating tube feeds. Intermittently hypertensive. 11/18: Tmax 99.5. Moving head back and forth and following commands weakly with bilateral upper extremities. Tolerating tube feeds. Off all sedation 7 days. Subjective 11/19: Asynchronous with the vent. Now on propofol. Probable withdrawal of care today according to palliative care. Waiting to hear back from guardian 11/20: Waiting for tone cabinet assembler's order to permit withdrawal from ventilator, and comfort measures. At this time patient is sedated with propofol. Fentanyl as needed 11/21: Sedated with propofol appears comfortable. Bilateral course breath sounds. IV Bumex and DuoNeb ordered 11/22: Patient remains on the vent breathing comfortably on propofol. Bilateral wheezing has improved. No further decision had been made regarding date of withdrawal. 11/23: No change in condition, comfortable on propofol. Patient is synchronous with the ventilator 11/24: Wheezing, tachypneic on vent. DuoNeb will be administered by respiratory 11/25: No recent labs or chest x-ray done. Wheezing improved Objective Vital Signs Date Time Temp Pulse Resp B/P (MAP) Pulse Ox O2 Delivery O2 Flow Rate FiO2 11/25/16 07:51 94 40 11/25/16 06:00 87 11/25/16 04:00 99.0 28 150/65 (93) Intake and Output 11/25/16 11/25/16 11/25/16 07:59 15:59 23:59 Intake Total 656 ml Output Total 400 ml Balance 256 ml Imaging Last Impressions Chest X-Ray 11/18/16 0600 Signed Impressions: Service Date/Time: Friday, November 18, 2016 04:04 - CONCLUSION: Some improvement involving the diffuse bilateral pulmonary infiltrates. Eric Levine Jr., MD Cervical Spine MRI 11/06/16 0000 Signed Impressions: Service Date/Time: Sunday, November 06, 2016 21:36 - CONCLUSION: 1. Multilevel degenerative changes of the cervical spine as above, especially C5/ C6 and C6/C7. 2. Mild to moderate spinal stenosis and severe right foraminal stenosis at C5/C6. 3. Mild spinal stenosis and moderate right foraminal stenosis at C6/C7. 4. No cord compression or cord signal abnormality. 5. No fracture or subluxation. 6. Large nodule of the left lobe of the thyroid gland. There are also upper limits of normal bilateral cervical lymph nodes. Keshav uBrks MD Brain MRI 11/06/16 0000 Signed Impressions: Service Date/Time: Sunday, November 06, 2016 21:36 - CONCLUSION: 1. No change or acute abnormality demonstrated. 2. Atrophy, ventriculomegaly and chronic white matter changes are again noted. Keshav Burks MD Thyroid Ultrasound 10/31/16 0000 Signed Impressions: Service Date/Time: Monday, October 31, 2016 11:47 - CONCLUSION: Large complex mass right lobe of the thyroid. Minimally increased in size since Jacoby Torre MD FACR Abdomen X-Ray 10/29/16 0000 Signed Impressions: Service Date/Time: Saturday, October 29, 2016 15:32 - CONCLUSION: Negative for radiopaque foreign bodies. Jacoby Torre MD FACR Chest CT 10/28/16 1814 Signed Impressions: Service Date/Time: Friday, October 28, 2016 18:28 - CONCLUSION: 1. Abnormality on chest radiograph corresponds to a 3.4 x 3.5 cm central right hilar mass/adenopathy with associated postobstructive airspace consolidation in the inferior right upper lobe. There are at least 2 additional pulmonary nodules measuring 13 x 8 mm in the anterior right middle lobe and 8 x 8 mm in the anterior right upper lobe near the apex. 2. 3.9 x 4.3 cm heterogeneous nodule in the right thyroid gland. No significant regional cervical adenopathy. 3. Patchy bilateral lower lobe air space consolidation and diffuse ground glass opacities. Differential considerations include ARDS versus infection versus aspiration. 1. Tyler Selby MD Head CT 10/28/16 0000 Signed Impressions: Service Date/Time: Friday, October 28, 2016 20:44 - CONCLUSION: 1. No bleed or evidence of acute infarction. 2. Atrophy and chronic white matter changes. 3. Moderate ventriculomegaly, beyond that expected for the degree of atrophy. Normal pressure hydrocephalus would be in the differential. Keshav Burks MD Objective Remarks GENERAL: 71-year-old female, critically ill currently orotracheally intubated, sedated with propofol SKIN: Warm and dry. HEENT: Atraumatic. Normocephalic. Orotracheally intubated NECK: Trachea midline. No JVD. Right-sided thyromegaly/palpable mass noted CARDIOVASCULAR: Tachycardic, RR. S1, S2 no S4. Without murmur RESPIRATORY: Coarse crackles appreciated bilaterally, bilateral mild wheezes. GASTROINTESTINAL: Abdomen soft, non-tender, nondistended. Hepatic and splenic margins not palpable. MUSCULOSKELETAL: Extremities bilateral trace lower extremity edema. No obvious deformities. NEUROLOGICAL: Heavily sedated on propofol. Intermittently moves extremities A/P Assessment and Plan Neuro/Psych: Depression/anxiety Toxic metabolic encephalopathy Ventriculomegaly History of dementia On propofol for vent synchrony, monitor neuro status. As needed fentanyl 50 every 2 hours when necessary pain EEG 11/06 revealed triphasic sway/diffuse sharp waves likely moderate encephalopathy cannot rule out proclivity of seizure Neuro Dr. Sampson. CT brain: Moderate ventriculomegaly, beyond that expected for the degree of atrophy. MRI confirms. Neurosurgery has followed- Dr. Hernandez No intervention Holding home medications clonazepam 0.5 mg twice a day and quetiapine 25 mg at night On levetiracetam 500 mg IV twice a day per neurology's EEG above CV: Hypertension Dyslipidemia On Lopressor 50mg Q8, amlodipine 10mg daily, Clonidine 0.3mg Q8 As needed hydralazine and labetalol and Nitropaste for hypertension Holding atorvastatin 40 mg by mouth daily for dyslipidemia. Pulm Acute hypoxemic respiratory failure possibly secondary to post obstructive pneumonia Squamous cell carcinoma of Lung [facility] 12/0//. Ventilator bundle. No further weaning trials. Awaiting order from tone cabinet assembler for ventilator withdrawal Albuterol/ipratropium aerosols every 6 hours with albuterol aerosols every [address] chest reviewed revealed 3.4 x 2.5 right hilar mass with post discharge pneumonia in the right upper lobe. Right middle lobe mass. Dr. Madison, s/p bronch with BAL 11/01. Cytology positive (squamous cell carcinoma ) Renal/: Hypernatremia - resolved Monitor renal function, I/O's, electrolytes replacement per protocol. Free water 250 cc every 8 hours tube feeds GI/liver: Mild protein calorie malnutrition Continue with Glucerna 1.5 at 40 cc an hour On famotidine 20mg BID for GI prophylaxis Docusate sodium 100 mg twice a day for bowel regimen ID: Escherichia coli UTI Postobstructive pneumonia Abx per ID (completed fluconazole, aztreonam, meropenem) monitor for signs of infections ( Fever, WBC). Sputum cx 11/09: Pseudomonas, Staph Aureus Follow up on cultures and bronchoscopy 11/01- Yeast species BC 11/04: NGTD Blood cultures 2 - 11/06 - NGTD Sputum 11/06 ESBL E Coli, PSAE, Staph. Strep pneumonia urinary Ag negative. ID has followed Urine cx 10/28: E COLI Heme: Leukocytosis Normocytic anemia Likely SCC lung Monitor CBC. Patient has hilar mass with pulmonary nodules, also thyroid mass. Seen by Oncology-Dr. Xavier patient is not candidate for surgery, chemo radiation give poor performance status, hospice was recommended. Endocrine: Diabetes mellitus Right thyroid mass 6.8 cm/chronic Detemir 20 units Q12 On SSI medium scale Novolin R for glycemic control. Patient is on insulin glargine at home Prophylaxis: Famotidine 20 mg twice a day via OG tube, SCDs/subcutaneous heparin Level 1 follow-up Awaiting order from tone cabinet assembler for ventilator withdrawal, palliative care following. No further update at this time Trevor Parr MD Nov 25, 2016 09:07
[2016-11-25] MEDS: HEPARIN SODIUM - SQ 10,000 UNITS/ML VIAL SQ SCH ×3 (10:11→23:50)
[2016-11-25] MEDS: CHLORHEXIDINE 0.12% (ORAL KIT) 15 ML CUP MT SCH ×2 (10:11→21:45)
[2016-11-25] MEDS: LACTOBACILLUS ACIDOPHILUS TAB PO SCH ×3 (10:11→17:00)
[2016-11-25] MEDS: FAMOTIDINE 20 MG TAB PO SCH ×2 (10:11→21:45)
[2016-11-25] MEDS: MUPIROCIN 2% OINT 1 APPLIC/GM SYR EACH NARE SCH ×2 (10:12→21:47)
[2016-11-26] VITALS (24 sets, daily range): BP systolic 137–158; BP diastolic 60–79; PULSE 78–108; RESP 12–33; TEMP 98.6–100; O2SAT 94–100
[2016-11-26] MEDS: INSULIN NovoLIN REGULAR SUPPLEMENTAL SCALE SQ SCH ×4 (02:00→20:00)
[2016-11-26] MEDS: levETIRAcetam INJ 500 MG in SODIUM CHLORIDE 0.9% INJ 100 ML IV SCH ×2 (02:28→14:15)
[2016-11-26] MEDS: CHLORHEXIDINE GLUCONATE 2 % 1 PACK (2 CLOTHS) TOP SCH (02:34)
[2016-11-26] MEDS: LABETALOL HCL 100 MG/20 ML VIAL IV PUSH PRN (04:04)
[2016-11-26] MEDS: PROPOFOL 1000 MG/100 ML INJ 100 ML IV PRN ×4 (05:40→23:23)
[2016-11-26] MEDS: ARTIFICIAL TEARS OPTH SOLN 15 ML BTL EACH EYE SCH ×3 (05:40→20:51)
[2016-11-26] MEDS: cloNIDine HCL 0.3 MG TAB PO SCH ×3 (05:41→20:54)
[2016-11-26] MEDS: METOPROLOL TARTRATE 50 MG TAB PO SCH ×3 (05:41→20:51)
[2016-11-26] MEDS: CHLORHEXIDINE 0.12% (ORAL KIT) 15 ML CUP MT SCH ×2 (08:00→19:47)
[2016-11-26] MEDS: INSULIN DETEMIR 100 UNITS/ML VIAL SQ SCH ×2 (09:00→20:54)
[2016-11-26] MEDS: SODIUM CHLORIDE 0.9% FLUSH 10 ML FLUSH IV FLUSH SCH ×2 (09:00→20:50)
[2016-11-26] MEDS: DOCUSATE SODIUM 100 MG/10 ML UDC PO SCH ×2 (09:00→20:48)
[2016-11-26] MEDS: HEPARIN SODIUM - SQ 10,000 UNITS/ML VIAL SQ SCH ×3 (09:29→23:23)
[2016-11-26] MEDS: FAMOTIDINE 20 MG TAB PO SCH ×2 (09:29→20:54)
[2016-11-26] MEDS: MUPIROCIN 2% OINT 1 APPLIC/GM SYR EACH NARE SCH ×2 (09:29→20:51)
[2016-11-26] MEDS: LACTOBACILLUS ACIDOPHILUS TAB PO SCH ×3 (09:31→17:44)
--- NOTE | 2016-11-26 10:55 | HHI.CCPN ---
Subjective Remarks/Hospital Course HPI 70-year-old [facility] resident with a medical history significant for dementia, diabetes mellitus, hyperlipidemia, reactive airway disease who was found to have altered mental status at the [facility] for which EMS was called. Patient was noted to have O2 sats in the 70s. She was very apneic with her head slumped down. Paramedics report of having to hold her head up to have her breathe with the nebulizer treatment in place. Patient was given Solu- Medrol 125 mg IV and 4 nebulizer treatments prior to arrival in the ER for documentation. On arrival in the ER patient was extremely lethargic however was reportedly able to answer some questions. Patient was felt not to be able to protect her airway as well as very hypoxic and hence was intubated by ER physician and placed on mechanical ventilation. Chest x-ray in the ER showed bilateral infiltrates and possible cavitary lesion. She was accepted for admission by critical care medicine service. CT chest was ordered by ER physician. When I evaluated the patient in the ER she was sedated with propofol , orally intubated on mechanical ventilation. History was obtained by reviewing records and discussion with ER physician. 10/29 Patient is sedated with Diprivan and intubated. Afebrile. 10/30 Patient remains sedated and intubated. T:99.7 last night. 10/31: Intubated sedated. CT reviewed and discussed with Dr. Madison. Will consider Bronch. Also check thyroid US and possible biopsy. Check thyroid studies. Also consult palliative care as patient has underlying dementia with NPH and possible malignancy. 11/01: Tmax 100.3. Plan for bronchoscopy at 3:00 today. Noted thyroid masses chronic/since 2011. Tolerating tube feeding. Positive BM. 11/02: Tmax 100.1. Status post bronchoscopy yesterday with removal of mucous plugging. Tolerating tube feeds. Positive BM. Weaning propofol sedation today. 11/03: Tmax 100.6. Noted elevated leukocytosis. Weaning sedation. Positive BM. Tolerate tube feeding. 11/04: Afebrile. UA negative. C. difficile pending. 4 bowel movement overnight. Tolerating tube feeding. No new issues. 11/05 Patient is sedated with Diprivan and intubated. T:100.7. Given Labetalol 10mg IV x3 for hypertension overnight. 11/06 No events overnight. Off sedation. T: 101.5 last night. 11/07: Tmax 102. Currently 100.6. Continues off sedation. Eyes are open to voice but not falling commands. Noted MRI brain unchanged. MRI C-spine revealed no cord compression or cord abnormality's. Severe C5/6 right foraminal narrowing 11/08: Remains intubated sedated, intermittently opens eyes. Per palliative care , manager grant requesting letter of certification from treatment team. Prior to making a decision to withdraw from life support, the manager grant is requesting a letter from the covering physicians certifying that she is hospice appropriate and palliative rather than aggressive treatment is appropriate. Dr. Madison thinks hospice is appropriate but also recommends Oncology input. I have consulted medical oncology 11/09 Patient remains intubated, on no sedation, Tmax 103.1 gets tachypneic with CPAP trials 11/10 Patient is intubated had T:100.3 last night. Doesn't follow commands. 11/11 No events overnight. Placed on Precedex drip yesterday to facilitate with weaning trials. T: 99.7. Awake looking around with her eyes but does not following commands. 11/12 Patient remains intubated. On Precedex drip. Did not tolerate CPAP trials yesterday. 11/13 No events overnight. Intubated doesn't tolerate CPAP trials. T:100.5 last night. 11/14 Patient remains intubated. Off sedation. T;100.1 11/15 No events overnight. Intubated. T:100.8 last night. 11/16: Tmax 99.5. Currently resting in bed in no acute distress. Eyes are open but does not follow commands. Off all sedation. Tolerating tube feeding. Positive BM. 11/17: Tmax 100.1. Resting blood eyes open not falling commands. Off all sedation. Tolerating tube feeds. Intermittently hypertensive. 11/18: Tmax 99.5. Moving head back and forth and following commands weakly with bilateral upper extremities. Tolerating tube feeds. Off all sedation 7 days. Subjective 11/19: Asynchronous with the vent. Now on propofol. Probable withdrawal of care today according to palliative care. Waiting to hear back from guardian 11/20: Waiting for manager grant's order to permit withdrawal from ventilator, and comfort measures. At this time patient is sedated with propofol. Fentanyl as needed 11/21: Sedated with propofol appears comfortable. Bilateral course breath sounds. IV Bumex and DuoNeb ordered 11/22: Patient remains on the vent breathing comfortably on propofol. Bilateral wheezing has improved. No further decision had been made regarding date of withdrawal. 11/23: No change in condition, comfortable on propofol. Patient is synchronous with the ventilator 11/24: Wheezing, tachypneic on vent. DuoNeb will be administered by respiratory 11/25: No recent labs or chest x-ray done. Wheezing improved 11/26: No changes in her mental status or clinical condition. Synchronous with the vent Objective Vital Signs Date Time Temp Pulse Resp B/P (MAP) Pulse Ox O2 Delivery O2 Flow Rate FiO2 11/26/16 09:52 100 40 11/26/16 06:00 101 11/26/16 04:00 100.0 20 137/60 (85) Intake and Output 11/26/16 11/26/16 11/27/16 08:00 16:00 00:00 Intake Total 668.5 ml Output Total 675 ml Balance -6.5 ml Imaging Last Impressions Chest X-Ray 11/18/16 0600 Signed Impressions: Service Date/Time: Friday, November 18, 2016 04:04 - CONCLUSION: Some improvement involving the diffuse bilateral pulmonary infiltrates. Eric Levine Jr., MD Cervical Spine MRI 11/06/16 0000 Signed Impressions: Service Date/Time: Sunday, November 06, 2016 21:36 - CONCLUSION: 1. Multilevel degenerative changes of the cervical spine as above, especially C5/ C6 and C6/C7. 2. Mild to moderate spinal stenosis and severe right foraminal stenosis at C5/C6. 3. Mild spinal stenosis and moderate right foraminal stenosis at C6/C7. 4. No cord compression or cord signal abnormality. 5. No fracture or subluxation. 6. Large nodule of the left lobe of the thyroid gland. There are also upper limits of normal bilateral cervical lymph nodes. Keshav Burks MD Brain MRI 11/06/16 0000 Signed Impressions: Service Date/Time: Sunday, November 06, 2016 21:36 - CONCLUSION: 1. No change or acute abnormality demonstrated. 2. Atrophy, ventriculomegaly and chronic white matter changes are again noted. Keshav Burks MD Thyroid Ultrasound 10/31/16 0000 Signed Impressions: Service Date/Time: Monday, October 31, 2016 11:47 - CONCLUSION: Large complex mass right lobe of the thyroid. Minimally increased in size since Jacoby Torre MD FACR Abdomen X-Ray 10/29/16 0000 Signed Impressions: Service Date/Time: Saturday, October 29, 2016 15:32 - CONCLUSION: Negative for radiopaque foreign bodies. Jacoby Torre MD FACR Chest CT 10/28/16 1814 Signed Impressions: Service Date/Time: Friday, October 28, 2016 18:28 - CONCLUSION: 1. Abnormality on chest radiograph corresponds to a 3.4 x 3.5 cm central right hilar mass/adenopathy with associated postobstructive airspace consolidation in the inferior right upper lobe. There are at least 2 additional pulmonary nodules measuring 13 x 8 mm in the anterior right middle lobe and 8 x 8 mm in the anterior right upper lobe near the apex. 2. 3.9 x 4.3 cm heterogeneous nodule in the right thyroid gland. No significant regional cervical adenopathy. 3. Patchy bilateral lower lobe air space consolidation and diffuse ground glass opacities. Differential considerations include ARDS versus infection versus aspiration. 1. Tyler Selby MD Head CT 10/28/16 0000 Signed Impressions: Service Date/Time: Friday, October 28, 2016 20:44 - CONCLUSION: 1. No bleed or evidence of acute infarction. 2. Atrophy and chronic white matter changes. 3. Moderate ventriculomegaly, beyond that expected for the degree of atrophy. Normal pressure hydrocephalus would be in the differential. Keshav Burks MD Objective Remarks GENERAL: 71-year-old female, critically ill currently orotracheally intubated, sedated with propofol SKIN: Warm and dry. HEENT: Atraumatic. Normocephalic. Orotracheally intubated NECK: Trachea midline. No JVD. Right-sided thyromegaly/palpable mass noted CARDIOVASCULAR: Tachycardic, RR. S1, S2 no S4. Without murmur RESPIRATORY: Coarse crackles appreciated bilaterally, bilateral mild wheezes. GASTROINTESTINAL: Abdomen soft, non-tender, nondistended. Hepatic and splenic margins not palpable. MUSCULOSKELETAL: Extremities bilateral trace lower extremity edema. No obvious deformities. NEUROLOGICAL: Heavily sedated on propofol. Intermittently moves extremities, no purposeful movements noted A/P Assessment and Plan Neuro/Psych: Depression/anxiety Toxic metabolic encephalopathy Ventriculomegaly History of dementia On propofol for vent synchrony, monitor neuro status. As needed fentanyl 50 every 2 hours when necessary pain EEG 11/06 revealed triphasic sway/diffuse sharp waves likely moderate encephalopathy cannot rule out proclivity of seizure Neuro Dr. Sampson. CT brain: Moderate ventriculomegaly, beyond that expected for the degree of atrophy. MRI confirms. Neurosurgery has followed- Dr. Hernandez No intervention Holding home medications clonazepam 0.5 mg twice a day and quetiapine 25 mg at night On levetiracetam 500 mg IV twice a day per neurology's EEG above CV: Hypertension Dyslipidemia On Lopressor 50mg Q8, amlodipine 10mg daily, Clonidine 0.3mg Q8 As needed hydralazine and labetalol and Nitropaste for hypertension Holding atorvastatin 40 mg by mouth daily for dyslipidemia. Pulm Acute hypoxemic respiratory failure possibly secondary to post obstructive pneumonia Squamous cell carcinoma of Lung [facility] 12/500/0//. Ventilator bundle. No further weaning trials. Awaiting order from manager grant for ventilator withdrawal Albuterol/ipratropium aerosols every 6 hours with albuterol aerosols every [address] chest reviewed revealed 3.4 x 2.5 right hilar mass with post discharge pneumonia in the right upper lobe. Right middle lobe mass. Dr. Madison, s/p bronch with BAL 11/01. Cytology positive (squamous cell carcinoma ) Renal/: Hypernatremia - resolved Monitor renal function, I/O's, electrolytes replacement per protocol. Free water 250 cc every 8 hours tube feeds GI/liver: Mild protein calorie malnutrition Continue with Glucerna 1.5 at 40 cc an hour On famotidine 20mg BID for GI prophylaxis Docusate sodium 100 mg twice a day for bowel regimen ID: Escherichia coli UTI Postobstructive pneumonia Abx per ID (completed fluconazole, aztreonam, meropenem) monitor for signs of infections ( Fever, WBC). Sputum cx 11/09: Pseudomonas, Staph Aureus Follow up on cultures and bronchoscopy 11/01- Yeast species BC 11/04: NGTD Blood cultures 2 - 11/06 - NGTD Sputum 11/06 ESBL E Coli, PSAE, Staph. Strep pneumonia urinary Ag negative. ID has followed Urine cx 10/28: E COLI Heme: Leukocytosis Normocytic anemia Likely SCC lung Monitor CBC. Patient has hilar mass with pulmonary nodules, also thyroid mass. Seen by Oncology-Dr. Xavier patient is not candidate for surgery, chemo radiation give poor performance status, hospice was recommended. Endocrine: Diabetes mellitus Right thyroid mass 6.8 cm/chronic Detemir 20 units Q12 On SSI medium scale Novolin R for glycemic control. Patient is on insulin glargine at home Prophylaxis: Famotidine 20 mg twice a day via OG tube, SCDs/subcutaneous heparin Level 1 follow-up Awaiting order from manager grant for ventilator withdrawal, palliative care following. No further update at this time Trevor Parr MD Nov 26, 2016 10:55
--- NOTE | 2016-11-26 12:05 | HHI.HCPN ---
Spoke with guardian, [place]. She provided a copy of a "Notice of Hearing". Per document Notice of Hearing to take place on November at 830am. Matter to be discussed is "Emergency Petition to Authorize Removal of Life Support. Palliative care number provided should there be any additional questions. Tentative plan to transition to comfort measures only with compassionate withdrawal of life support supported by hospice services if approved at Notice of Hearing on 11/29/16. Palliative care to continue to follow throughout hospitalization. Leticia Levine, PART MAKER Nov 26, 2016 12:05
--- NOTE | 2016-11-26 18:35 | HHI.PR ---
Subjective Remarks 70 YOWF with VDRF,Pneumonia, ? Aspiration Bronchial wash Sq cell ca Mod amount of trach secretions. No fever Sedated with Diprivan. Wakes up when sedation weaned Objective Vital Signs Vital Signs Date Time Temp Pulse Resp B/P (MAP) Pulse Ox O2 Delivery O2 Flow Rate FiO2 11/26/16 18:00 85 11/26/16 17:00 85 11/26/16 16:00 40 11/26/16 16:00 99.0 79 12 148/65 (92) 96 11/26/16 16:00 79 11/26/16 15:57 96 40 11/26/16 15:00 78 11/26/16 14:00 95 11/26/16 13:00 93 11/26/16 12:00 98.9 93 33 97 11/26/16 12:00 93 11/26/16 12:00 40 11/26/16 11:00 96 11/26/16 10:00 92 11/26/16 09:52 100 40 11/26/16 09:00 92 11/26/16 08:00 40 11/26/16 08:00 86 11/26/16 08:00 99.6 86 13 158/79 (105) 98 11/26/16 07:00 82 11/26/16 06:00 101 11/26/16 04:00 40 11/26/16 04:00 108 11/26/16 04:00 100.0 108 20 137/60 (85) 99 11/26/16 03:16 100 40 11/26/16 02:00 89 11/26/16 00:13 99 40 11/26/16 00:00 84 11/26/16 00:00 40 11/26/16 00:00 99.8 84 12 153/67 (95) 100 11/25/16 22:00 98 11/25/16 20:08 100 40 11/25/16 20:00 40 11/25/16 20:00 81 11/25/16 20:00 100.6 81 12 121/59 (79) 96 I/O 11/25/16 11/25/16 11/25/16 11/26/16 11/26/16 11/26/16 07:00 15:00 23:00 07:00 15:00 23:00 Intake Total 656 ml 867 ml 768.5 ml Output Total 400 ml 450 ml 675 ml Balance 256 ml 417 ml 93.5 ml IV Total 237 ml 205 ml 312.5 ml Tube Feeding 419 ml 422 ml 456 ml Other 240 ml Output Urine Total 400 ml 450 ml 675 ml # Bowel Movements 1 Objective Remarks GENERAL: MBMN WF, intubated, sedated SKIN: Warm and dry. HEAD: Normocephalic. EYES: No scleral icterus. No injection or drainage. NECK: Supple, trachea midline. No JVD or lymphadenopathy. CARDIOVASCULAR: Regular rate and rhythm without murmurs, gallops, or rubs. RESPIRATORY: Breath sounds equal bilaterally. No accessory muscle use. GASTROINTESTINAL: Abdomen soft, non-tender, nondistended. MUSCULOSKELETAL: No cyanosis, or edema. BACK: Nontender without obvious deformity. No CVA tenderness. A/P Assessment and Plan VDRF Pneumonia Aspiration DM Dementia Ventriculomegaly Squamous cell ca PLAN: Vent Support -AC 12, Fi02 40% Cont Abx Aerosol nebs SQ Heparin Code status DNR Prognosis poor Awaiting gaurdian decisions. Luis Madison MD Nov 26, 2016 18:35
[2016-11-27] VITALS (24 sets, daily range): BP systolic 125–170; BP diastolic 58–73; PULSE 72–101; RESP 9–47; TEMP 98.2–100.7; O2SAT 94–100
[2016-11-27] MEDS: INSULIN NovoLIN REGULAR SUPPLEMENTAL SCALE SQ SCH ×4 (02:00→21:12)
[2016-11-27] MEDS: levETIRAcetam INJ 500 MG in SODIUM CHLORIDE 0.9% INJ 100 ML IV SCH ×2 (03:00→14:57)
[2016-11-27] MEDS: CHLORHEXIDINE GLUCONATE 2 % 1 PACK (2 CLOTHS) TOP SCH (03:15)
[2016-11-27] MEDS: PROPOFOL 1000 MG/100 ML INJ 100 ML IV PRN ×3 (04:11→17:15)
[2016-11-27] MEDS: cloNIDine HCL 0.3 MG TAB PO SCH ×3 (05:53→21:11)
[2016-11-27] MEDS: ARTIFICIAL TEARS OPTH SOLN 15 ML BTL EACH EYE SCH ×3 (05:53→21:13)
[2016-11-27] MEDS: METOPROLOL TARTRATE 50 MG TAB PO SCH ×3 (05:53→21:13)
[2016-11-27] MEDS: HEPARIN SODIUM - SQ 10,000 UNITS/ML VIAL SQ SCH ×2 (08:23→17:15)
[2016-11-27] MEDS: DOCUSATE SODIUM 100 MG/10 ML UDC PO SCH ×2 (08:24→21:00)
[2016-11-27] MEDS: LACTOBACILLUS ACIDOPHILUS TAB PO SCH ×3 (08:24→17:15)
[2016-11-27] MEDS: MUPIROCIN 2% OINT 1 APPLIC/GM SYR EACH NARE SCH ×2 (08:25→21:10)
[2016-11-27] MEDS: CHLORHEXIDINE 0.12% (ORAL KIT) 15 ML CUP MT SCH ×2 (08:25→21:14)
[2016-11-27] MEDS: FAMOTIDINE 20 MG TAB PO SCH ×2 (08:25→21:12)
[2016-11-27] MEDS: SODIUM CHLORIDE 0.9% FLUSH 10 ML FLUSH IV FLUSH SCH ×2 (08:28→21:12)
[2016-11-27] MEDS: INSULIN DETEMIR 100 UNITS/ML VIAL SQ SCH ×2 (08:28→21:11)
--- NOTE | 2016-11-27 09:01 | HHI.CCPN ---
Subjective Remarks/Hospital Course HPI 70-year-old [facility] resident with a medical history significant for dementia, diabetes mellitus, hyperlipidemia, reactive airway disease who was found to have altered mental status at the [facility] for which EMS was called. Patient was noted to have O2 sats in the 70s. She was very apneic with her head slumped down. Paramedics report of having to hold her head up to have her breathe with the nebulizer treatment in place. Patient was given Solu- Medrol 125 mg IV and 4 nebulizer treatments prior to arrival in the ER for documentation. On arrival in the ER patient was extremely lethargic however was reportedly able to answer some questions. Patient was felt not to be able to protect her airway as well as very hypoxic and hence was intubated by ER physician and placed on mechanical ventilation. Chest x-ray in the ER showed bilateral infiltrates and possible cavitary lesion. She was accepted for admission by critical care medicine service. CT chest was ordered by ER physician. When I evaluated the patient in the ER she was sedated with propofol , orally intubated on mechanical ventilation. History was obtained by reviewing records and discussion with ER physician. 10/29 Patient is sedated with Diprivan and intubated. Afebrile. 10/30 Patient remains sedated and intubated. T:99.7 last night. 10/31: Intubated sedated. CT reviewed and discussed with Dr. Madison. Will consider Bronch. Also check thyroid US and possible biopsy. Check thyroid studies. Also consult palliative care as patient has underlying dementia with NPH and possible malignancy. 11/01: Tmax 100.3. Plan for bronchoscopy at 3:00 today. Noted thyroid masses chronic/since 2011. Tolerating tube feeding. Positive BM. 11/02: Tmax 100.1. Status post bronchoscopy yesterday with removal of mucous plugging. Tolerating tube feeds. Positive BM. Weaning propofol sedation today. 11/03: Tmax 100.6. Noted elevated leukocytosis. Weaning sedation. Positive BM. Tolerate tube feeding. 11/04: Afebrile. UA negative. C. difficile pending. 4 bowel movement overnight. Tolerating tube feeding. No new issues. 11/05 Patient is sedated with Diprivan and intubated. T:100.7. Given Labetalol 10mg IV x3 for hypertension overnight. 11/06 No events overnight. Off sedation. T: 101.5 last night. 11/07: Tmax 102. Currently 100.6. Continues off sedation. Eyes are open to voice but not falling commands. Noted MRI brain unchanged. MRI C-spine revealed no cord compression or cord abnormality's. Severe C5/6 right foraminal narrowing 11/08: Remains intubated sedated, intermittently opens eyes. Per palliative care , expanding machine operator requesting letter of certification from treatment team. Prior to making a decision to withdraw from life support, the expanding machine operator is requesting a letter from the covering physicians certifying that she is hospice appropriate and palliative rather than aggressive treatment is appropriate. Dr. Madison thinks hospice is appropriate but also recommends Oncology input. I have consulted medical oncology 11/09 Patient remains intubated, on no sedation, Tmax 103.1 gets tachypneic with CPAP trials 11/10 Patient is intubated had T:100.3 last night. Doesn't follow commands. 11/11 No events overnight. Placed on Precedex drip yesterday to facilitate with weaning trials. T: 99.7. Awake looking around with her eyes but does not following commands. 11/12 Patient remains intubated. On Precedex drip. Did not tolerate CPAP trials yesterday. 11/13 No events overnight. Intubated doesn't tolerate CPAP trials. T:100.5 last night. 11/14 Patient remains intubated. Off sedation. T;100.1 11/15 No events overnight. Intubated. T:100.8 last night. 11/16: Tmax 99.5. Currently resting in bed in no acute distress. Eyes are open but does not follow commands. Off all sedation. Tolerating tube feeding. Positive BM. 11/17: Tmax 100.1. Resting blood eyes open not falling commands. Off all sedation. Tolerating tube feeds. Intermittently hypertensive. 11/18: Tmax 99.5. Moving head back and forth and following commands weakly with bilateral upper extremities. Tolerating tube feeds. Off all sedation 7 days. Subjective 11/19: Asynchronous with the vent. Now on propofol. Probable withdrawal of care today according to palliative care. Waiting to hear back from guardian 11/20: Waiting for expanding machine operator's order to permit withdrawal from ventilator, and comfort measures. At this time patient is sedated with propofol. Fentanyl as needed 11/21: Sedated with propofol appears comfortable. Bilateral course breath sounds. IV Bumex and DuoNeb ordered 11/22: Patient remains on the vent breathing comfortably on propofol. Bilateral wheezing has improved. No further decision had been made regarding date of withdrawal. 11/23: No change in condition, comfortable on propofol. Patient is synchronous with the ventilator 11/24: Wheezing, tachypneic on vent. DuoNeb will be administered by respiratory 11/25: No recent labs or chest x-ray done. Wheezing improved 11/26: No changes in her mental status or clinical condition. Synchronous with the vent 11/27: No change in clinical condition. Per palliative care notes, Notice of Hearing to take place on November 29, to discuss Emergency Petition to Authorize Removal of Life Support. Objective Vital Signs Date Time Temp Pulse Resp B/P (MAP) Pulse Ox O2 Delivery O2 Flow Rate FiO2 11/27/16 08:15 98 40 11/27/16 06:00 101 11/27/16 04:00 98.7 39 170/71 (104) Intake and Output 11/27/16 11/27/16 11/28/16 08:00 16:00 00:00 Intake Total 520 ml Output Total 600 ml Balance -80 ml Imaging Last Impressions Chest X-Ray 11/18/16 0600 Signed Impressions: Service Date/Time: Friday, November 18, 2016 04:04 - CONCLUSION: Some improvement involving the diffuse bilateral pulmonary infiltrates. Eric Levine Jr., MD Cervical Spine MRI 11/06/16 0000 Signed Impressions: Service Date/Time: Sunday, November 06, 2016 21:36 - CONCLUSION: 1. Multilevel degenerative changes of the cervical spine as above, especially C5/ C6 and C6/C7. 2. Mild to moderate spinal stenosis and severe right foraminal stenosis at C5/C6. 3. Mild spinal stenosis and moderate right foraminal stenosis at C6/C7. 4. No cord compression or cord signal abnormality. 5. No fracture or subluxation. 6. Large nodule of the left lobe of the thyroid gland. There are also upper limits of normal bilateral cervical lymph nodes. Keshav Burks MD Brain MRI 11/06/16 0000 Signed Impressions: Service Date/Time: Sunday, November 06, 2016 21:36 - CONCLUSION: 1. No change or acute abnormality demonstrated. 2. Atrophy, ventriculomegaly and chronic white matter changes are again noted. Keshav Burks MD Thyroid Ultrasound 10/31/16 0000 Signed Impressions: Service Date/Time: Monday, October 31, 2016 11:47 - CONCLUSION: Large complex mass right lobe of the thyroid. Minimally increased in size since Jacoby Torre MD FACR Abdomen X-Ray 10/29/16 0000 Signed Impressions: Service Date/Time: Saturday, October 29, 2016 15:32 - CONCLUSION: Negative for radiopaque foreign bodies. Jacoby Torre MD FACR Chest CT 10/28/161813 Signed Impressions: Service Date/Time: Friday, October 28, 2016 18:28 - CONCLUSION: 1. Abnormality on chest radiograph corresponds to a 3.4 x 3.5 cm central right hilar mass/adenopathy with associated postobstructive airspace consolidation in the inferior right upper lobe. There are at least 2 additional pulmonary nodules measuring 13 x 8 mm in the anterior right middle lobe and 8 x 8 mm in the anterior right upper lobe near the apex. 2. 3.9 x 4.3 cm heterogeneous nodule in the right thyroid gland. No significant regional cervical adenopathy. 3. Patchy bilateral lower lobe air space consolidation and diffuse ground glass opacities. Differential considerations include ARDS versus infection versus aspiration. 1. Tyler Selby MD Head CT 10/28/16 0000 Signed Impressions: Service Date/Time: Friday, October 28, 2016 20:44 - CONCLUSION: 1. No bleed or evidence of acute infarction. 2. Atrophy and chronic white matter changes. 3. Moderate ventriculomegaly, beyond that expected for the degree of atrophy. Normal pressure hydrocephalus would be in the differential. Keshav Burks MD Objective Remarks GENERAL: 71-year-old female, critically ill currently orotracheally intubated, sedated with propofol SKIN: Warm and dry. HEENT: Atraumatic. Normocephalic. Orotracheally intubated NECK: Trachea midline. No JVD. Right-sided thyromegaly/palpable mass noted CARDIOVASCULAR: Tachycardic, RR. S1, S2 no S4. Without murmur RESPIRATORY: Coarse crackles appreciated bilaterally, bilateral mild wheezes. GASTROINTESTINAL: Abdomen soft, non-tender, nondistended. Hepatic and splenic margins not palpable. MUSCULOSKELETAL: Extremities bilateral trace lower extremity edema. No obvious deformities. NEUROLOGICAL: Heavily sedated on propofol. Intermittently moves extremities, no purposeful movements noted A/P Assessment and Plan Neuro/Psych: Depression/anxiety Toxic metabolic encephalopathy Ventriculomegaly History of dementia On propofol for vent synchrony, monitor neuro status. As needed fentanyl 50 every 2 hours when necessary pain EEG 11/06 triphasic sway/diffuse sharp waves likely moderate encephalopathy cannot rule out proclivity of seizure Neuro Dr. Sampson. CT brain: Moderate ventriculomegaly, beyond that expected for the degree of atrophy. MRI confirms. Neurosurgery has followed- Dr. Hernandez No intervention Holding home medications clonazepam 0.5 mg twice a day and quetiapine 25 mg at night On levetiracetam 500 mg IV twice a day per neurology's EEG above CV: Hypertension Dyslipidemia On Lopressor 50mg Q8, amlodipine 10mg daily, Clonidine 0.3mg Q8 As needed hydralazine and labetalol and Nitropaste for hypertension Holding atorvastatin 40 mg by mouth daily for dyslipidemia. Pulm Acute hypoxemic respiratory failure possibly secondary to post obstructive pneumonia Squamous cell carcinoma of Lung [facility] /0//. Ventilator bundle. No further weaning trials. Awaiting order from expanding machine operator for ventilator withdrawal Albuterol/ipratropium aerosols every 6 hours with albuterol aerosols every [address] chest reviewed revealed 3.4 x 2.5 right hilar mass with post discharge pneumonia in the right upper lobe. Right middle lobe mass. Dr. Madison, s/p bronch with BAL 11/01. Cytology positive (squamous cell carcinoma ) Renal/: Hypernatremia - resolved Monitor renal function, I/O's, electrolytes replacement per protocol. Free water 250 cc every 8 hours tube feeds GI/liver: Mild protein calorie malnutrition Continue with Glucerna 1.5 at 40 cc an hour On famotidine 20mg BID for GI prophylaxis Docusate sodium 100 mg twice a day for bowel regimen ID: Escherichia coli UTI Postobstructive pneumonia Abx per ID (completed fluconazole, aztreonam, meropenem) monitor for signs of infections ( Fever, WBC). Sputum cx 11/09: Pseudomonas, Staph Aureus Follow up on cultures and bronchoscopy 11/01- Yeast species BC 11/04: NGTD Blood cultures 2 - 11/06 - NGTD Sputum 11/06 ESBL E Coli, PSAE, Staph. Strep pneumonia urinary Ag negative. ID has followed Urine cx 10/28: E COLI Heme: Leukocytosis Normocytic anemia SCC lung Monitor CBC. Patient has hilar mass with pulmonary nodules, also thyroid mass. Seen by Oncology-Dr. Xavier patient is not candidate for surgery, chemo radiation give poor performance status, hospice was recommended. Endocrine: Diabetes mellitus Right thyroid mass 6.8 cm/chronic Detemir 20 units Q12 On SSI medium scale Novolin R for glycemic control. Patient is on insulin glargine at home Prophylaxis: Famotidine 20 mg twice a day via OG tube, SCDs/subcutaneous heparin Level 1 follow-up Per palliative care notes, Notice of Hearing to take place on November 29, to discuss Emergency Petition to Authorize Removal of Life Support. Trevor Parr MD Nov 27, 2016 09:01
[2016-11-27] MEDS: ACETAMINOPHEN 325 MG TAB PO PRN ×2 (12:33→21:10)
--- NOTE | 2016-11-27 19:01 | HHI.PR ---
Subjective Remarks 70 YOWF with VDRF,Pneumonia, ? Aspiration Bronchial wash Sq cell ca Mod amount of trach secretions. No fever Sedated with Diprivan. Objective Vital Signs Vital Signs Date Time Temp Pulse Resp B/P (MAP) Pulse Ox O2 Delivery O2 Flow Rate FiO2 11/27/16 17:00 96 40 11/27/16 16:00 99.5 80 15 125/58 (80) 94 11/27/16 16:00 40 11/27/16 15:30 93 31 160/69 (99) 95 11/27/16 15:00 93 24 162/73 (102) 95 11/27/16 14:30 92 14 158/70 (99) 94 11/27/16 14:00 86 9 146/65 (92) 95 11/27/16 13:00 84 9 130/61 (84) 96 11/27/16 12:30 85 12 148/65 (92) 97 11/27/16 12:00 99.9 85 13 144/67 (92) 95 11/27/16 12:00 40 11/27/16 11:45 94 40 11/27/16 09:31 92 47 151/67 (95) 97 11/27/16 09:01 90 42 168/70 (102) 100 11/27/16 08:30 82 39 135/70 (91) 99 11/27/16 08:15 98 40 11/27/16 08:00 98.2 79 12 146/68 (94) 98 11/27/16 08:00 40 11/27/16 06:00 101 11/27/16 04:31 97 40 11/27/16 04:00 95 11/27/16 04:00 40 11/27/16 04:00 98.7 95 39 170/71 (104) 100 11/27/16 02:00 91 32 131/58 (82) 97 11/27/16 02:00 91 11/27/16 01:18 96 40 11/27/16 00:00 99.0 72 20 134/61 (85) 95 11/27/16 00:00 72 11/27/16 00:00 40 11/26/16 22:15 96 40 11/26/16 22:00 78 32 142/71 (94) 94 11/26/16 22:00 78 11/26/16 20:00 85 11/26/16 20:00 98.6 85 12 156/66 (96) 97 11/26/16 20:00 40 11/26/16 19:15 98 40 I/O 11/26/16 11/26/16 11/26/16 11/27/16 11/27/16 11/27/16 07:00 15:00 23:00 07:00 15:00 23:00 Intake Total 768.5 ml 205 ml 800 ml 620 ml 805 ml Output Total 675 ml 650 ml 600 ml 750 ml Balance 93.5 ml 205 ml 150 ml 20 ml 55 ml IV Total 312.5 ml 205 ml 100 ml 100 ml 260 ml Tube Feeding 456 ml 460 ml 400 ml 445 ml Other 240 ml 120 ml 100 ml Output Urine Total 675 ml 650 ml 600 ml 750 ml # Bowel Movements 1 1 2 Objective Remarks GENERAL: MBMN WF, intubated, sedated SKIN: Warm and dry. HEAD: Normocephalic. EYES: No scleral icterus. No injection or drainage. NECK: Supple, trachea midline. No JVD or lymphadenopathy. CARDIOVASCULAR: Regular rate and rhythm without murmurs, gallops, or rubs. RESPIRATORY: Breath sounds equal bilaterally. No accessory muscle use. GASTROINTESTINAL: Abdomen soft, non-tender, nondistended. MUSCULOSKELETAL: No cyanosis, or edema. BACK: Nontender without obvious deformity. No CVA tenderness. A/P Assessment and Plan VDRF Pneumonia Aspiration DM Dementia Ventriculomegaly Squamous cell ca PLAN: Vent Support -AC 12, Fi02 40% Cont Abx Aerosol nebs SQ Heparin Code status DNR Prognosis poor Luis Madison MD Nov 27, 2016 19:00
[2016-11-28] VITALS (28 sets, daily range): BP systolic 141–176; BP diastolic 64–92; PULSE 72–138; RESP 12–44; TEMP 97.4–99.8; O2SAT 94–100
[2016-11-28] MEDS: levETIRAcetam INJ 500 MG in SODIUM CHLORIDE 0.9% INJ 100 ML IV SCH ×2 (01:23→14:14)
[2016-11-28] MEDS: INSULIN NovoLIN REGULAR SUPPLEMENTAL SCALE SQ SCH ×4 (01:25→20:00)
[2016-11-28] MEDS: HEPARIN SODIUM - SQ 10,000 UNITS/ML VIAL SQ SCH ×3 (01:28→15:02)
[2016-11-28] MEDS: PROPOFOL 1000 MG/100 ML INJ 100 ML IV PRN ×3 (01:28→15:05)
[2016-11-28] MEDS: CHLORHEXIDINE GLUCONATE 2 % 1 PACK (2 CLOTHS) TOP SCH (04:00)
[2016-11-28] MEDS: cloNIDine HCL 0.3 MG TAB PO SCH ×3 (04:44→20:22)
[2016-11-28] MEDS: METOPROLOL TARTRATE 50 MG TAB PO SCH ×3 (04:44→21:57)
[2016-11-28] MEDS: ARTIFICIAL TEARS OPTH SOLN 15 ML BTL EACH EYE SCH ×3 (04:45→20:22)
[2016-11-28] MEDS: DOCUSATE SODIUM 100 MG/10 ML UDC PO SCH ×2 (08:18→20:22)
[2016-11-28] MEDS: LACTOBACILLUS ACIDOPHILUS TAB PO SCH ×3 (08:18→18:00)
[2016-11-28] MEDS: FAMOTIDINE 20 MG TAB PO SCH ×2 (08:18→20:22)
[2016-11-28] MEDS: MUPIROCIN 2% OINT 1 APPLIC/GM SYR EACH NARE SCH ×2 (08:18→21:00)
[2016-11-28] MEDS: INSULIN DETEMIR 100 UNITS/ML VIAL SQ SCH ×2 (08:19→20:22)
[2016-11-28] MEDS: CHLORHEXIDINE 0.12% (ORAL KIT) 15 ML CUP MT SCH ×2 (08:20→20:00)
--- NOTE | 2016-11-28 14:22 | HHI.CCPN ---
Subjective Remarks/Hospital Course HPI 70-year-old alf resident with a medical history significant for dementia, diabetes mellitus, hyperlipidemia, reactive airway disease who was found to have altered mental status at the alf for which EMS was called. Patient was noted to have O2 sats in the 70s. She was very apneic with her head slumped down. Paramedics report of having to hold her head up to have her breathe with the nebulizer treatment in place. Patient was given Solu- Medrol 125 mg IV and 4 nebulizer treatments prior to arrival in the ER for documentation. On arrival in the ER patient was extremely lethargic however was reportedly able to answer some questions. Patient was felt not to be able to protect her airway as well as very hypoxic and hence was intubated by ER physician and placed on mechanical ventilation. Chest x-ray in the ER showed bilateral infiltrates and possible cavitary lesion. She was accepted for admission by critical care medicine service. CT chest was ordered by ER physician. When I evaluated the patient in the ER she was sedated with propofol , orally intubated on mechanical ventilation. History was obtained by reviewing records and discussion with ER physician. 10/29 Patient is sedated with Diprivan and intubated. Afebrile. 10/30 Patient remains sedated and intubated. T:99.7 last night. 10/31: Intubated sedated. CT reviewed and discussed with Dr. Madison. Will consider Bronch. Also check thyroid US and possible biopsy. Check thyroid studies. Also consult palliative care as patient has underlying dementia with NPH and possible malignancy. 11/01: Tmax 100.3. Plan for bronchoscopy at 3:00 today. Noted thyroid masses chronic/since 2011. Tolerating tube feeding. Positive BM. 11/02: Tmax 100.1. Status post bronchoscopy yesterday with removal of mucous plugging. Tolerating tube feeds. Positive BM. Weaning propofol sedation today. 11/03: Tmax 100.6. Noted elevated leukocytosis. Weaning sedation. Positive BM. Tolerate tube feeding. 11/04: Afebrile. UA negative. C. difficile pending. 4 bowel movement overnight. Tolerating tube feeding. No new issues. 11/05 Patient is sedated with Diprivan and intubated. T:100.7. Given Labetalol 10mg IV x3 for hypertension overnight. 11/06 No events overnight. Off sedation. T: 101.5 last night. 11/07: Tmax 102. Currently 100.6. Continues off sedation. Eyes are open to voice but not falling commands. Noted MRI brain unchanged. MRI C-spine revealed no cord compression or cord abnormality's. Severe C5/6 right foraminal narrowing 11/08: Remains intubated sedated, intermittently opens eyes. Per palliative care , director of ancillary services requesting letter of certification from treatment team. Prior to making a decision to withdraw from life support, the director of ancillary services is requesting a letter from the covering physicians certifying that she is hospice appropriate and palliative rather than aggressive treatment is appropriate. Dr. Madison thinks hospice is appropriate but also recommends Oncology input. I have consulted medical oncology 11/09 Patient remains intubated, on no sedation, Tmax 103.1 gets tachypneic with CPAP trials 11/10 Patient is intubated had T:100.3 last night. Doesn't follow commands. 11/11 No events overnight. Placed on Precedex drip yesterday to facilitate with weaning trials. T: 99.7. Awake looking around with her eyes but does not following commands. 11/12 Patient remains intubated. On Precedex drip. Did not tolerate CPAP trials yesterday. 11/13 No events overnight. Intubated doesn't tolerate CPAP trials. T:100.5 last night. 11/14 Patient remains intubated. Off sedation. T;100.1 11/15 No events overnight. Intubated. T:100.8 last night. 11/16: Tmax 99.5. Currently resting in bed in no acute distress. Eyes are open but does not follow commands. Off all sedation. Tolerating tube feeding. Positive BM. 11/17: Tmax 100.1. Resting blood eyes open not falling commands. Off all sedation. Tolerating tube feeds. Intermittently hypertensive. 11/18: Tmax 99.5. Moving head back and forth and following commands weakly with bilateral upper extremities. Tolerating tube feeds. Off all sedation 7 days. Subjective 11/19: Asynchronous with the vent. Now on propofol. Probable withdrawal of care today according to palliative care. Waiting to hear back from guardian 11/20: Waiting for director of ancillary services's order to permit withdrawal from ventilator, and comfort measures. At this time patient is sedated with propofol. Fentanyl as needed 11/21: Sedated with propofol appears comfortable. Bilateral course breath sounds. IV Bumex and DuoNeb ordered 11/22: Patient remains on the vent breathing comfortably on propofol. Bilateral wheezing has improved. No further decision had been made regarding date of withdrawal. 11/23: No change in condition, comfortable on propofol. Patient is synchronous with the ventilator 11/24: Wheezing, tachypneic on vent. DuoNeb will be administered by respiratory 11/25: No recent labs or chest x-ray done. Wheezing improved 11/26: No changes in her mental status or clinical condition. Synchronous with the vent 11/27: No change in clinical condition. Per palliative care notes, Notice of Hearing to take place on November 29, to discuss Emergency Petition to Authorize Removal of Life Support. 11/28: No change in condition, hearing scheduled for tomorrow. Patient appears comfortable Objective Vital Signs Date Time Temp Pulse Resp B/P (MAP) Pulse Ox O2 Delivery O2 Flow Rate FiO2 11/28/16 11:52 97 40 11/28/16 08:00 99.8 11/28/16 06:00 72 11/28/16 04:00 12 157/68 (97) Intake and Output 11/28/16 11/28/16 11/28/16 07:59 15:59 23:59 Intake Total 820 ml Output Total 950 ml Balance -130 ml Imaging Last Impressions Chest X-Ray 11/18/16 0600 Signed Impressions: Service Date/Time: Friday, November 18, 2016 04:04 - CONCLUSION: Some improvement involving the diffuse bilateral pulmonary infiltrates. Eric Levine Jr., MD Cervical Spine MRI 11/06/16 0000 Signed Impressions: Service Date/Time: Sunday, November 06, 2016 21:36 - CONCLUSION: 1. Multilevel degenerative changes of the cervical spine as above, especially C5/ C6 and C6/C7. 2. Mild to moderate spinal stenosis and severe right foraminal stenosis at C5/C6. 3. Mild spinal stenosis and moderate right foraminal stenosis at C6/C7. 4. No cord compression or cord signal abnormality. 5. No fracture or subluxation. 6. Large nodule of the left lobe of the thyroid gland. There are also upper limits of normal bilateral cervical lymph nodes. Keshav Burks MD Brain MRI 11/06/16 0000 Signed Impressions: Service Date/Time: Sunday, November 06, 2016 21:36 - CONCLUSION: 1. No change or acute abnormality demonstrated. 2. Atrophy, ventriculomegaly and chronic white matter changes are again noted. Keshav Burks MD Thyroid Ultrasound 10/31/16 0000 Signed Impressions: Service Date/Time: Monday, October 31, 2016 11:47 - CONCLUSION: Large complex mass right lobe of the thyroid. Minimally increased in size since Jacoby Torre MD FACR Abdomen X-Ray 10/29/16 0000 Signed Impressions: Service Date/Time: Saturday, October 29, 2016 15:32 - CONCLUSION: Negative for radiopaque foreign bodies. Jacoby Torre MD FACR Chest CT 10/28/161813 Signed Impressions: Service Date/Time: Friday, October 28, 2016 18:28 - CONCLUSION: 1. Abnormality on chest radiograph corresponds to a 3.4 x 3.5 cm central right hilar mass/adenopathy with associated postobstructive airspace consolidation in the inferior right upper lobe. There are at least 2 additional pulmonary nodules measuring 13 x 8 mm in the anterior right middle lobe and 8 x 8 mm in the anterior right upper lobe near the apex. 2. 3.9 x 4.3 cm heterogeneous nodule in the right thyroid gland. No significant regional cervical adenopathy. 3. Patchy bilateral lower lobe air space consolidation and diffuse ground glass opacities. Differential considerations include ARDS versus infection versus aspiration. 1. Tyler Selby MD Head CT 10/28/16 0000 Signed Impressions: Service Date/Time: Friday, October 28, 2016 20:44 - CONCLUSION: 1. No bleed or evidence of acute infarction. 2. Atrophy and chronic white matter changes. 3. Moderate ventriculomegaly, beyond that expected for the degree of atrophy. Normal pressure hydrocephalus would be in the differential. Keshav Burks MD Objective Remarks GENERAL: 71-year-old female, critically ill currently orotracheally intubated, sedated with propofol SKIN: Warm and dry. HEENT: Atraumatic. Normocephalic. Orotracheally intubated NECK: Trachea midline. No JVD. Right-sided thyromegaly/palpable mass noted CARDIOVASCULAR: Tachycardic, RR. S1, S2 no S4. Without murmur RESPIRATORY: Coarse crackles appreciated bilaterally, bilateral mild wheezes. GASTROINTESTINAL: Abdomen soft, non-tender, nondistended. Hepatic and splenic margins not palpable. MUSCULOSKELETAL: Extremities bilateral trace lower extremity edema. No obvious deformities. NEUROLOGICAL: Heavily sedated on propofol. Intermittently moves extremities, no purposeful movements noted A/P Assessment and Plan Neuro/Psych: Depression/anxiety Toxic metabolic encephalopathy Ventriculomegaly History of dementia On propofol for vent synchrony, monitor neuro status. As needed fentanyl 50 every 2 hours when necessary pain EEG 11/06 triphasic sway/diffuse sharp waves likely moderate encephalopathy cannot rule out proclivity of seizure Neuro Dr. Sampson. CT brain: Moderate ventriculomegaly, beyond that expected for the degree of atrophy. MRI confirms. Neurosurgery has followed- Dr. David Sanders intervention Holding home medications clonazepam 0.5 mg twice a day and quetiapine 25 mg at night On levetiracetam 500 mg IV twice a day per neurology's EEG above CV: Hypertension Dyslipidemia On Lopressor 50mg Q8, amlodipine 10mg daily, Clonidine 0.3mg Q8 As needed hydralazine and labetalol and Nitropaste for hypertension Holding atorvastatin 40 mg by mouth daily for dyslipidemia. Pulm Acute hypoxemic respiratory failure possibly secondary to post obstructive pneumonia Squamous cell carcinoma of Lung PRVC 12/500/0//. Ventilator bundle. No further weaning trials. Awaiting order from director of ancillary services for ventilator withdrawal Albuterol/ipratropium aerosols every 6 hours with albuterol aerosols every [address] chest reviewed revealed 3.4 x 2.5 right hilar mass with post discharge pneumonia in the right upper lobe. Right middle lobe mass. Dr. Madison, s/p bronch with BAL 11/01. Cytology positive (squamous cell carcinoma ) Renal/: Hypernatremia - resolved Monitor renal function, I/O's, electrolytes replacement per protocol. Free water 250 cc every 8 hours tube feeds GI/liver: Mild protein calorie malnutrition Continue with Glucerna 1.5 at 40 cc an hour On famotidine 20mg BID for GI prophylaxis Docusate sodium 100 mg twice a day for bowel regimen ID: Escherichia coli UTI Postobstructive pneumonia Abx per ID (completed fluconazole, aztreonam, meropenem) monitor for signs of infections ( Fever, WBC). Sputum cx 11/09: Pseudomonas, Staph Aureus Follow up on cultures and bronchoscopy 11/01- Yeast species BC 11/04: NGTD Blood cultures 2 - 11/06 - NGTD Sputum 11/06 ESBL E Coli, PSAE, Staph. Strep pneumonia urinary Ag negative. ID has followed Urine cx 10/28: E COLI Heme: Leukocytosis Normocytic anemia SCC lung Monitor CBC. Patient has hilar mass with pulmonary nodules, also thyroid mass. Seen by Oncology-Dr. Xavier patient is not candidate for surgery, chemo radiation give poor performance status, hospice was recommended. Endocrine: Diabetes mellitus Right thyroid mass 6.8 cm/chronic Detemir 20 units Q12 On SSI medium scale Novolin R for glycemic control. Patient is on insulin glargine at home Prophylaxis: Famotidine 20 mg twice a day via OG tube, SCDs/subcutaneous heparin Level 1 follow-up Per palliative care notes, Notice of Hearing to take place on November 29, to discuss Emergency Petition to Authorize Removal of Life Support. Trevor Parr MD Nov 28, 2016 14:21
[2016-11-28] MEDS ORDERED: RESP: ALBUTEROL 2.5 MG/3 ML NEB (SCH) ONE (14:53)
[2016-11-28] MEDS: RESP: ALBUTEROL 2.5 MG/3 ML NEB (PRN) NEB (14:56)
[2016-11-28] MEDS: SODIUM CHLORIDE 0.9% FLUSH 10 ML FLUSH IV FLUSH SCH ×2 (15:02→21:00)
--- NOTE | 2016-11-28 17:40 | HHI.PR ---
Subjective Remarks 70 YOWF with VDRF,Pneumonia, ? Aspiration Bronchial wash Sq cell ca Mod amount of trach secretions. No fever Sedated with Diprivan. No new complaint Objective Vital Signs Vital Signs Date Time Temp Pulse Resp B/P (MAP) Pulse Ox O2 Delivery O2 Flow Rate FiO2 11/28/16 17:00 120 11/28/16 17:00 120 34 148/64 (92) 95 11/28/16 16:33 100 40 11/28/16 16:00 119 11/28/16 16:00 40 11/28/16 16:00 119 32 141/92 (108) 95 11/28/16 15:01 100 11/28/16 14:18 124 11/28/16 14:14 116 11/28/16 14:04 123 11/28/16 14:03 126 11/28/16 14:02 130 11/28/16 14:00 138 11/28/16 13:00 111 11/28/16 12:00 99.3 11/28/16 12:00 109 11/28/16 12:00 40 11/28/16 11:52 97 40 11/28/16 11:00 101 11/28/16 10:01 107 11/28/16 10:00 102 11/28/16 08:53 100 40 11/28/16 08:00 40 11/28/16 08:00 99.8 11/28/16 06:00 72 11/28/16 04:02 100 40 11/28/16 04:00 40 11/28/16 04:00 97 12 157/68 (97) 100 11/28/16 04:00 97 11/28/16 02:00 97 11/28/16 01:25 97 40 11/28/16 00:00 99.6 93 12 176/72 (106) 95 11/28/16 00:00 93 11/28/16 00:00 40 11/27/16 22:00 82 11/27/16 21:06 98 40 11/27/16 20:00 100.7 97 12 161/70 (100) 98 11/27/16 20:00 40 11/27/16 20:00 97 I/O 11/27/16 11/27/16 11/27/16 11/28/16 11/28/16 11/28/16 07:00 15:00 23:00 07:00 15:00 23:00 Intake Total 620 ml 805 ml 820 ml Output Total 600 ml 750 ml 950 ml Balance 20 ml 55 ml -130 ml IV Total 100 ml 260 ml 190 ml Tube Feeding 400 ml 445 ml 480 ml Tube Irrigant 150 ml Other 120 ml 100 ml Output Urine Total 600 ml 750 ml 950 ml # Bowel Movements 1 2 1 Objective Remarks GENERAL: MBMN WF, intubated, sedated SKIN: Warm and dry. HEAD: Normocephalic. EYES: No scleral icterus. No injection or drainage. NECK: Supple, trachea midline. No JVD or lymphadenopathy. CARDIOVASCULAR: Regular rate and rhythm without murmurs, gallops, or rubs. RESPIRATORY: Breath sounds equal bilaterally. No accessory muscle use. GASTROINTESTINAL: Abdomen soft, non-tender, nondistended. MUSCULOSKELETAL: No cyanosis, or edema. BACK: Nontender without obvious deformity. No CVA tenderness. A/P Assessment and Plan VDRF Pneumonia Aspiration DM Dementia Ventriculomegaly Squamous cell ca PLAN: Vent Support -AC 12, Fi02 40% Cont Abx Aerosol nebs SQ Heparin Code status DNR Prognosis poor court hearing for withdrawl tommorrow. Luis Madison MD Nov 28, 2016 17:40
[2016-11-29] VITALS (18 sets, daily range): BP systolic 129–165; BP diastolic 63–73; PULSE 80–125; RESP 16–62; TEMP 97.1–99.8; O2SAT 93–100
[2016-11-29] MEDS: PROPOFOL 1000 MG/100 ML INJ 100 ML IV PRN (00:02)
[2016-11-29] MEDS: HEPARIN SODIUM - SQ 10,000 UNITS/ML VIAL SQ SCH ×3 (00:02→16:00)
[2016-11-29] MEDS: INSULIN NovoLIN REGULAR SUPPLEMENTAL SCALE SQ SCH ×4 (02:00→20:00)
[2016-11-29] MEDS: CHLORHEXIDINE GLUCONATE 2 % 1 PACK (2 CLOTHS) TOP SCH (02:17)
[2016-11-29] MEDS: levETIRAcetam INJ 500 MG in SODIUM CHLORIDE 0.9% INJ 100 ML IV SCH ×2 (02:17→15:00)
[2016-11-29] MEDS: cloNIDine HCL 0.3 MG TAB PO SCH ×3 (05:04→20:13)
[2016-11-29] MEDS: METOPROLOL TARTRATE 50 MG TAB PO SCH ×3 (05:04→20:13)
[2016-11-29] MEDS: ARTIFICIAL TEARS OPTH SOLN 15 ML BTL EACH EYE SCH ×3 (05:04→20:03)
[2016-11-29] MEDS: CHLORHEXIDINE 0.12% (ORAL KIT) 15 ML CUP MT SCH ×2 (08:00→20:00)
[2016-11-29] MEDS: LACTOBACILLUS ACIDOPHILUS TAB PO SCH ×3 (08:36→18:00)
[2016-11-29] MEDS: INSULIN DETEMIR 100 UNITS/ML VIAL SQ SCH ×2 (08:36→20:03)
[2016-11-29] MEDS: DOCUSATE SODIUM 100 MG/10 ML UDC PO SCH ×2 (08:36→20:03)
[2016-11-29] MEDS: SODIUM CHLORIDE 0.9% FLUSH 10 ML FLUSH IV FLUSH SCH ×2 (08:37→20:02)
[2016-11-29] MEDS: MUPIROCIN 2% OINT 1 APPLIC/GM SYR EACH NARE SCH ×2 (08:40→20:02)
[2016-11-29] MEDS: FAMOTIDINE 20 MG TAB PO SCH ×2 (08:41→20:03)
--- NOTE | 2016-11-29 09:14 | HHI.CCPN ---
Subjective Remarks/Hospital Course HPI 70-year-old residential resident with a medical history significant for dementia, diabetes mellitus, hyperlipidemia, reactive airway disease who was found to have altered mental status at the residential for which EMS was called. Patient was noted to have O2 sats in the 70s. She was very apneic with her head slumped down. Paramedics report of having to hold her head up to have her breathe with the nebulizer treatment in place. Patient was given Solu- Medrol 125 mg IV and 4 nebulizer treatments prior to arrival in the ER for documentation. On arrival in the ER patient was extremely lethargic however was reportedly able to answer some questions. Patient was felt not to be able to protect her airway as well as very hypoxic and hence was intubated by ER physician and placed on mechanical ventilation. Chest x-ray in the ER showed bilateral infiltrates and possible cavitary lesion. She was accepted for admission by critical care medicine service. CT chest was ordered by ER physician. When I evaluated the patient in the ER she was sedated with propofol , orally intubated on mechanical ventilation. History was obtained by reviewing records and discussion with ER physician. 10/29 Patient is sedated with Diprivan and intubated. Afebrile. 10/30 Patient remains sedated and intubated. T:99.7 last night. 10/31: Intubated sedated. CT reviewed and discussed with Dr. Madison. Will consider Bronch. Also check thyroid US and possible biopsy. Check thyroid studies. Also consult palliative care as patient has underlying dementia with NPH and possible malignancy. 11/01: Tmax 100.3. Plan for bronchoscopy at 3:00 today. Noted thyroid masses chronic/since 2011. Tolerating tube feeding. Positive BM. 11/02: Tmax 100.1. Status post bronchoscopy yesterday with removal of mucous plugging. Tolerating tube feeds. Positive BM. Weaning propofol sedation today. 11/03: Tmax 100.6. Noted elevated leukocytosis. Weaning sedation. Positive BM. Tolerate tube feeding. 11/04: Afebrile. UA negative. C. difficile pending. 4 bowel movement overnight. Tolerating tube feeding. No new issues. 11/05 Patient is sedated with Diprivan and intubated. T:100.7. Given Labetalol 10mg IV x3 for hypertension overnight. 11/06 No events overnight. Off sedation. T: 101.5 last night. 11/07: Tmax 102. Currently 100.6. Continues off sedation. Eyes are open to voice but not falling commands. Noted MRI brain unchanged. MRI C-spine revealed no cord compression or cord abnormality's. Severe C5/6 right foraminal narrowing 11/08: Remains intubated sedated, intermittently opens eyes. Per palliative care , airworthiness safety inspector requesting letter of certification from treatment team. Prior to making a decision to withdraw from life support, the airworthiness safety inspector is requesting a letter from the covering physicians certifying that she is hospice appropriate and palliative rather than aggressive treatment is appropriate. Dr. Madison thinks hospice is appropriate but also recommends Oncology input. I have consulted medical oncology 11/09 Patient remains intubated, on no sedation, Tmax 103.1 gets tachypneic with CPAP trials 11/10 Patient is intubated had T:100.3 last night. Doesn't follow commands. 11/11 No events overnight. Placed on Precedex drip yesterday to facilitate with weaning trials. T: 99.7. Awake looking around with her eyes but does not following commands. 11/12 Patient remains intubated. On Precedex drip. Did not tolerate CPAP trials yesterday. 11/13 No events overnight. Intubated doesn't tolerate CPAP trials. T:100.5 last night. 11/14 Patient remains intubated. Off sedation. T;100.1 11/15 No events overnight. Intubated. T:100.8 last night. 11/16: Tmax 99.5. Currently resting in bed in no acute distress. Eyes are open but does not follow commands. Off all sedation. Tolerating tube feeding. Positive BM. 11/17: Tmax 100.1. Resting blood eyes open not falling commands. Off all sedation. Tolerating tube feeds. Intermittently hypertensive. 11/18: Tmax 99.5. Moving head back and forth and following commands weakly with bilateral upper extremities. Tolerating tube feeds. Off all sedation 7 days. Subjective 11/19: Asynchronous with the vent. Now on propofol. Probable withdrawal of care today according to palliative care. Waiting to hear back from guardian 11/20: Waiting for airworthiness safety inspector's order to permit withdrawal from ventilator, and comfort measures. At this time patient is sedated with propofol. Fentanyl as needed 11/21: Sedated with propofol appears comfortable. Bilateral course breath sounds. IV Bumex and DuoNeb ordered 11/22: Patient remains on the vent breathing comfortably on propofol. Bilateral wheezing has improved. No further decision had been made regarding date of withdrawal. 11/23: No change in condition, comfortable on propofol. Patient is synchronous with the ventilator 11/24: Wheezing, tachypneic on vent. DuoNeb will be administered by respiratory 11/25: No recent labs or chest x-ray done. Wheezing improved 11/26: No changes in her mental status or clinical condition. Synchronous with the vent 11/27: No change in clinical condition. Per palliative care notes, Notice of Hearing to take place on November 29, to discuss Emergency Petition to Authorize Removal of Life Support. 11/28: No change in condition, hearing scheduled for tomorrow. Patient appears comfortable 11/29: Hearing is today. No changes in clinical condition. Remains terminally ill with multiple terminal conditions Objective Vital Signs Date Time Temp Pulse Resp B/P (MAP) Pulse Ox O2 Delivery O2 Flow Rate FiO2 11/29/16 09:07 100 40 11/29/16 08:00 95 11/29/16 08:00 97.4 18 140/67 (91) Intake and Output 11/29/16 11/29/16 11/30/16 08:00 16:00 00:00 Intake Total 1078 ml Output Total 500 ml Balance 578 ml Imaging Last Impressions Chest X-Ray 11/18/16 0600 Signed Impressions: Service Date/Time: Friday, November 18, 2016 04:04 - CONCLUSION: Some improvement involving the diffuse bilateral pulmonary infiltrates. Eric Levine Jr., MD Cervical Spine MRI 11/06/16 0000 Signed Impressions: Service Date/Time: Sunday, November 06, 2016 21:36 - CONCLUSION: 1. Multilevel degenerative changes of the cervical spine as above, especially C5/ C6 and C6/C7. 2. Mild to moderate spinal stenosis and severe right foraminal stenosis at C5/C6. 3. Mild spinal stenosis and moderate right foraminal stenosis at C6/C7. 4. No cord compression or cord signal abnormality. 5. No fracture or subluxation. 6. Large nodule of the left lobe of the thyroid gland. There are also upper limits of normal bilateral cervical lymph nodes. Keshav Burks MD Brain MRI 11/06/16 0000 Signed Impressions: Service Date/Time: Sunday, November 06, 2016 21:36 - CONCLUSION: 1. No change or acute abnormality demonstrated. 2. Atrophy, ventriculomegaly and chronic white matter changes are again noted. Keshav Burks MD Thyroid Ultrasound 10/31/16 0000 Signed Impressions: Service Date/Time: Monday, October 31, 2016 11:47 - CONCLUSION: Large complex mass right lobe of the thyroid. Minimally increased in size since Jacoby Torre MD FACR Abdomen X-Ray 10/29/16 0000 Signed Impressions: Service Date/Time: Saturday, October 29, 2016 15:32 - CONCLUSION: Negative for radiopaque foreign bodies. Jacoby Torre MD FACR Chest CT 10/28/161813 Signed Impressions: Service Date/Time: Friday, October 28, 2016 18:28 - CONCLUSION: 1. Abnormality on chest radiograph corresponds to a 3.4 x 3.5 cm central right hilar mass/adenopathy with associated postobstructive airspace consolidation in the inferior right upper lobe. There are at least 2 additional pulmonary nodules measuring 13 x 8 mm in the anterior right middle lobe and 8 x 8 mm in the anterior right upper lobe near the apex. 2. 3.9 x 4.3 cm heterogeneous nodule in the right thyroid gland. No significant regional cervical adenopathy. 3. Patchy bilateral lower lobe air space consolidation and diffuse ground glass opacities. Differential considerations include ARDS versus infection versus aspiration. 1. Tyler Selby MD Head CT 10/28/16 0000 Signed Impressions: Service Date/Time: Friday, October 28, 2016 20:44 - CONCLUSION: 1. No bleed or evidence of acute infarction. 2. Atrophy and chronic white matter changes. 3. Moderate ventriculomegaly, beyond that expected for the degree of atrophy. Normal pressure hydrocephalus would be in the differential. Keshav Burks MD Objective Remarks GENERAL: 71-year-old female, critically ill orotracheally intubated, sedated with propofol SKIN: Warm and dry. HEENT: Atraumatic. Normocephalic. Orotracheally intubated NECK: Trachea midline. No JVD. Right-sided thyromegaly/palpable mass noted CARDIOVASCULAR: Tachycardic, RR. S1, S2 no S4. Without murmur RESPIRATORY: Coarse crackles appreciated bilaterally, bilateral mild wheezes. GASTROINTESTINAL: Abdomen soft, non-tender, nondistended. Hepatic and splenic margins not palpable. MUSCULOSKELETAL: Extremities bilateral trace lower extremity edema. No obvious deformities. NEUROLOGICAL: Heavily sedated on propofol. Intermittently moves extremities, no purposeful movements noted A/P Assessment and Plan Neuro/Psych: Depression/anxiety Toxic metabolic encephalopathy Ventriculomegaly History of dementia On propofol for vent synchrony, monitor neuro status. As needed fentanyl 50 every 2 hours when necessary pain EEG 11/06 triphasic sway/diffuse sharp waves likely moderate encephalopathy cannot rule out proclivity of seizure Neuro Dr. Sampson. CT brain: Moderate ventriculomegaly, beyond that expected for the degree of atrophy. MRI confirms. Neurosurgery has followed- Dr. David Sanders intervention Holding home medications clonazepam 0.5 mg twice a day and quetiapine 25 mg at night On levetiracetam 500 mg IV twice a day per neurology's EEG above CV: Hypertension Dyslipidemia On Lopressor 50mg Q8, amlodipine 10mg daily, Clonidine 0.3mg Q8 As needed hydralazine and labetalol and Nitropaste for hypertension Holding atorvastatin 40 mg by mouth daily for dyslipidemia. Pulm Acute hypoxemic respiratory failure possibly secondary to post obstructive pneumonia Squamous cell carcinoma of Lung PRVC 12/500/0//. Ventilator bundle. No further weaning trials. Awaiting order from airworthiness safety inspector for ventilator withdrawal, hearing is today Albuterol/ipratropium aerosols every 6 hours with albuterol aerosols every [address] chest reviewed revealed 3.4 x 2.5 right hilar mass with post discharge pneumonia in the right upper lobe. Right middle lobe mass. Dr. Madison, s/p bronch with BAL 11/01. Cytology positive (squamous cell carcinoma ) Renal/: Hypernatremia - resolved Monitor renal function, I/O's, electrolytes replacement per protocol. Free water 250 cc every 8 hours tube feeds GI/liver: Mild protein calorie malnutrition Continue with Glucerna 1.5 at 40 cc an hour On famotidine 20mg BID for GI prophylaxis Docusate sodium 100 mg twice a day for bowel regimen ID: Escherichia coli UTI Postobstructive pneumonia Abx per ID (completed fluconazole, aztreonam, meropenem) monitor for signs of infections ( Fever, WBC). Sputum cx 11/09: Pseudomonas, Staph Aureus Follow up on cultures and bronchoscopy 11/01- Yeast species BC 11/04: NGTD Blood cultures 2 - 11/06 - NGTD Sputum 11/06 ESBL E Coli, PSAE, Staph. Strep pneumonia urinary Ag negative. ID has followed Urine cx 10/28: E COLI Heme: Leukocytosis Normocytic anemia SCC lung Monitor CBC. Patient has hilar mass with pulmonary nodules, also thyroid mass. Seen by Oncology-Dr. Xavier patient is not candidate for surgery, chemo radiation give poor performance status, hospice was recommended. Endocrine: Diabetes mellitus Right thyroid mass 6.8 cm/chronic Detemir 20 units Q12 On SSI medium scale Novolin R for glycemic control. Patient is on insulin glargine at home Prophylaxis: Famotidine 20 mg twice a day via OG tube, SCDs/subcutaneous heparin Level 1 follow-up Per palliative care notes, Notice of Hearing to take place today November 29, to discuss Emergency Petition to Authorize Removal of Life Support. Awaiting update Trevor Parr MD Nov 29, 2016 09:14
--- NOTE | 2016-11-29 14:28 | HHI.HCPN ---
Reason for visit a. To assist with evaluation and management of symptoms including: dyspnea, debility. b. To assist medical decision maker(s) with: better understanding of current medical conditions; weighing benefits/burdens of medical treatment options; making medical treatment decisions. . Subjective/Interval History Patient seen and examined in ICU. Discussed with nurse and Dr. Parr. Patient remains in ICU on vent. Respirations are labored. She is tachypneic and tachycardic. No significant clinical change. Overall poor prognosis. . Family/friend interactions Spoke with [place] Lyons, [employer] guardian. She reports health science specialist has temporarily denied the petition for withdrawal of life support requesting medical team be available in court to appropriately document the patient's terminality. I also spoke with Lina Benoit with [employer] who confirms this plan. Another court date is being set and Lina Benoit will notify me as soon as the date has been set. Spoke with Kaitlyn in legal to provide update. . Advance Directives Living Will: Never completed Health Care Surrogate: Never completed Durable Power of After School Teacher: Never completed Advance Directive Specifics Health Care Surrogate(s): Patient has a court appointed guardian, [place] [facility] - [place] Lyons. . Significant change in goals: NO CODE. Awaiting determination of next court hearing to determine withdrawal of life support order. . Objective Vital Signs Date Time Temp Pulse Resp B/P (MAP) Pulse Ox O2 Delivery O2 Flow Rate FiO2 11/29/16 12:19 98 40 11/29/16 12:00 95 11/29/16 12:00 40 11/29/16 12:00 97.8 125 28 165/73 (103) 96 11/29/16 10:00 95 11/29/16 09:07 100 40 11/29/16 08:00 95 11/29/16 08:00 40 11/29/16 08:00 97.4 86 18 140/67 (91) 94 11/29/16 06:00 80 11/29/16 04:11 96 40 11/29/16 04:00 40 11/29/16 04:00 104 11/29/16 04:00 97.8 104 16 152/70 (97) 95 11/29/16 02:00 99 11/29/16 00:39 96 40 11/29/16 00:00 97.1 101 44 154/67 (96) 96 11/29/16 00:00 101 11/29/16 00:00 40 11/28/16 22:00 95 11/28/16 21:10 96 40 11/28/16 20:00 121 11/28/16 20:00 97.4 121 44 167/69 (101) 94 11/28/16 20:00 40 11/28/16 18:00 120 11/28/16 17:00 120 11/28/16 17:00 120 34 148/64 (92) 95 11/28/16 16:33 100 40 11/28/16 16:00 119 11/28/16 16:00 40 11/28/16 16:00 119 32 141/92 (108) 95 11/28/16 15:01 100 11/28/16 14:18 124 11/28/16 14:14 116 11/28/16 14:04 123 11/28/16 14:03 126 11/28/16 14:02 130 11/28/16 14:00 138 Intake & Output 11/29/16 11/29/16 07:00 19:00 Intake Total 1078 ml Output Total 500 ml Balance 578 ml IV Total 489 ml Tube Feeding 469 ml Other 120 ml Output Urine Total 500 ml # Bowel Movements 0 Physical Exam CONSTITUTIONAL/GENERAL: This is an elderly, critically, chronically ill patient, on mech vent. TUBES/LINES/DRAINS: PIV, ETT, OGT, Jang catheter, SCDs EYES: eyes closed. CARDIOVASCULAR: Regular rate and rhythm without murmurs, gallops, or rubs. RESPIRATORY/CHEST: mildly labored respirations on mech vent. GASTROINTESTINAL: Abdomen soft, round, large. No guarding. Bowel sounds present. GENITOURINARY: Without palpable bladder distension. Jnag catheter in place. MUSCULOSKELETAL: Extremities without clubbing, cyanosis. Edema to bilateral extremities. No mottling or clubbing. NEUROLOGICAL: Intubated. Eyes open, biting on ET tube. Not following commands. Not responding to tactile or verbal stimuli. PSYCHIATRIC: asleep. . Diagnostic Tests Microbiology Microbiology Date/Time Source Procedure Growth Status 11/09/16 09:58 Blood Peripheral Aerobic Blood Culture - Final NO GROWTH IN 5 DAYS Complete 11/09/16 09:58 Blood Peripheral Anaerobic Blood Culture - Final NO GROWTH IN 5 DAYS Complete 11/09/16 09:30 Sputum Endotracheal Gram Stain - Final Complete 11/09/16 09:30 Sputum Culture - Final Pseudomonas Aeruginosa Staphylococcus Aureus Complete 11/09/16 09:30 Urine Catheterized Urine Urine Culture - Final NO GROWTH IN 48 HOURS. Complete 10/28/16 17:00 Other - Final Complete Imaging Last Impressions Chest X-Ray 11/19/16 0600 Signed Impressions: Service Date/Time: Saturday, November 19, 2016 03:49 - CONCLUSION: No significant change Keshav Vora MD Cervical Spine MRI 11/06/16 0000 Signed Impressions: Service Date/Time: Sunday, November 06, 2016 21:36 - CONCLUSION: 1. Multilevel degenerative changes of the cervical spine as above, especially C5/ C6 and C6/C7. 2. Mild to moderate spinal stenosis and severe right foraminal stenosis at C5/C6. 3. Mild spinal stenosis and moderate right foraminal stenosis at C6/C7. 4. No cord compression or cord signal abnormality. 5. No fracture or subluxation. 6. Large nodule of the left lobe of the thyroid gland. There are also upper limits of normal bilateral cervical lymph nodes. Keshav Burks MD Brain MRI 11/06/16 0000 Signed Impressions: Service Date/Time: Sunday, November 06, 2016 21:36 - CONCLUSION: 1. No change or acute abnormality demonstrated. 2. Atrophy, ventriculomegaly and chronic white matter changes are again noted. Keshav Burks MD Thyroid Ultrasound 10/31/16 0000 Signed Impressions: Service Date/Time: Monday, October 31, 2016 11:47 - CONCLUSION: Large complex mass right lobe of the thyroid. Minimally increased in size since Jacoby Torre MD FACR Abdomen X-Ray 10/29/16 0000 Signed Impressions: Service Date/Time: Saturday, October 29, 2016 15:32 - CONCLUSION: Negative for radiopaque foreign bodies. Jacoby Torre MD FACR Chest CT 10/28/16 1814 Signed Impressions: Service Date/Time: Friday, October 28, 2016 18:28 - CONCLUSION: 1. Abnormality on chest radiograph corresponds to a 3.4 x 3.5 cm central right hilar mass/adenopathy with associated postobstructive airspace consolidation in the inferior right upper lobe. There are at least 2 additional pulmonary nodules measuring 13 x 8 mm in the anterior right middle lobe and 8 x 8 mm in the anterior right upper lobe near the apex. 2. 3.9 x 4.3 cm heterogeneous nodule in the right thyroid gland. No significant regional cervical adenopathy. 3. Patchy bilateral lower lobe air space consolidation and diffuse ground glass opacities. Differential considerations include ARDS versus infection versus aspiration. 1. Tyler Selby MD Head CT 10/28/16 0000 Signed Impressions: Service Date/Time: Friday, October 28, 2016 20:44 - CONCLUSION: 1. No bleed or evidence of acute infarction. 2. Atrophy and chronic white matter changes. 3. Moderate ventriculomegaly, beyond that expected for the degree of atrophy. Normal pressure hydrocephalus would be in the differential. Keshav Burks MD Procedures 11/01/16 Bronchoscopy 10/28/16 Intubated and mechanically ventilated . Assessment and Plan Disease Oriented Problem List: (1) Acute respiratory failure requiring reintubation (2) Sepsis (3) Pulmonary nodules (4) Normal pressure hydrocephalus (5) Diabetes mellitus (6) Thyroid mass Symptom Scale: (1) Shortness of breath 0-10 Scale: Unable to quantify Comment: Intubated and mechanically ventilated. . (2) Debility 0-10 Scale: Unable to quantify Comment: Resident of a long-term facility, requiring assistance with ADLs. Progressive debility. . Pertinent Non-Medical Issues Psychosocial: Patient [facility] a [facility]. As per prior medical records from 2007, patient has two sons who reside in the area. Per court appointed guardian, one son is and the other son who once served as patient`s DPOA was not fulfilling his duties and the court appointed a guardian for the patient. 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 Spiritual: Unable to obtain, patient is intubated on mechanical ventilation and sedated. Legal: Incapacitated, not going to regain capacity due to end stage dementia. Patient has a court appointed guardian. Ethical issues impacting care: Patient has a court appointed guardian.Patient has a signed DNR in 2010 by her son prior to court appointed guardian. . Important Contacts [place] Lyons/[place] [facility]- Court appointed guardian [phone] . Prognosis Ms Sha has had prolonged hospital course, remains critically ill in ICU on mech vent, unable to be weaned due to underlying COPD and lung cancer. Patient has end stage dementia, will not regain capacity. In speaking with oncology, auto winder, neurology and palliative care patient is terminal as she is not able to be weaned from vent, not a candidate for treatment of lung cancer. . Code Status: No Code Plan * Legal decision maker: Patient is incapacitated, will not regain capacity. Patient has court appointed [employer] guardian, [place] Lyons. * NO CODE - per legal recommendation to honor prior [place] DNR order. * Goals: Spoke with JUSTIN Scott guardian. She reports health science specialist has temporarily denied the petition for withdrawal of life support requesting medical team be available in court to appropriately document the patient's terminality. I also spoke with Lina Benoit with [employer] who confirms this plan. Another court date is being set and Lina Benoit will notify me as soon as the date has been set. Spoke with Kaitlyn in legal to provide update. * Discussed with Dr. Parr and nurse. * SYMPTOMS: Respiratory distress/ dyspnea - patient remains intubated on mechanical ventilation. Patient failing CPAP trials, gets tachypneic. Sputum culture positive for Escherichia coli, ESBL positive, pseudomonas aeruginosa, methicillin-resistant staph aureus. ID following. Debility - admitted from a group home with significant debility, she has been on bed rest, mechanically ventilated. No new medication recommendations at this time. Will assist with transition to comfort orders at the time to transition to comfort. * Palliative care will continue to follow the patient during hospital course as condition evolves, to assist patient/decision-maker with understanding of their medical conditions, weighing benefits/burdens of treatment options, for clarification of goals of treatment. Additionally will assist with any symptoms of palliative concern. . Attestation To help prompt me to consider important information that might be impacting today's encounter and assessment, information from prior notes written by myself or my colleagues may have been "brought forward" into today's note. My signature on this note, however, is an attestation that I personally performed the exam, history, and/or decision-making noted today, and, unless otherwise indicated, the interactions with patient, family, and staff as well as the review of records all occurred today. I also attest that the listed assessment and stated plan reflect my best clinical judgment today based on the combination of historical information, prior notes, and today's exam/ interactions. When time spent is documented, it refers only to time spent today by the signer, or if indicated, combined time spent today by collaborating physician/nurse practitioner. Mirlande Pak Nov 29, 2016 14:28
--- NOTE | 2016-11-29 15:52 | HHI.PR ---
Subjective Remarks 70 YOWF with VDRF,Pneumonia, ? Aspiration Bronchial wash Sq cell ca Mod amount of trach secretions. No fever Sedated with Diprivan. Objective Vital Signs Vital Signs Date Time Temp Pulse Resp B/P (MAP) Pulse Ox O2 Delivery O2 Flow Rate FiO2 11/29/16 12:19 98 40 11/29/16 12:00 95 11/29/16 12:00 40 11/29/16 12:00 97.8 125 28 165/73 (103) 96 11/29/16 10:00 95 11/29/16 09:07 100 40 11/29/16 08:00 95 11/29/16 08:00 40 11/29/16 08:00 97.4 86 18 140/67 (91) 94 11/29/16 06:00 80 11/29/16 04:11 96 40 11/29/16 04:00 40 11/29/16 04:00 104 11/29/16 04:00 97.8 104 16 152/70 (97) 95 11/29/16 02:00 99 11/29/16 00:39 96 40 11/29/16 00:00 97.1 101 44 154/67 (96) 96 11/29/16 00:00 101 11/29/16 00:00 40 11/28/16 22:00 95 11/28/16 21:10 96 40 11/28/16 20:00 121 11/28/16 20:00 97.4 121 44 167/69 (101) 94 11/28/16 20:00 40 11/28/16 18:00 120 11/28/16 17:00 120 11/28/16 17:00 120 34 148/64 (92) 95 11/28/16 16:33 100 40 11/28/16 16:00 119 11/28/16 16:00 40 11/28/16 16:00 119 32 141/92 (108) 95 I/O 11/28/16 11/28/16 11/28/16 11/29/16 11/29/16 11/29/16 06:59 14:59 22:59 06:59 14:59 22:59 Intake Total 820 ml 822 ml 1078 ml Output Total 950 ml 1000 ml 500 ml Balance -130 ml -178 ml 578 ml IV Total 190 ml 489 ml Tube Feeding 480 ml 582 ml 469 ml Tube Irrigant 150 ml Other 240 ml 120 ml Output Urine Total 950 ml 1000 ml 500 ml # Bowel Movements 1 3 0 Objective Remarks GENERAL: MBMN WF, intubated, sedated SKIN: Warm and dry. HEAD: Normocephalic. EYES: No scleral icterus. No injection or drainage. NECK: Supple, trachea midline. No JVD or lymphadenopathy. CARDIOVASCULAR: Regular rate and rhythm without murmurs, gallops, or rubs. RESPIRATORY: Breath sounds equal bilaterally. No accessory muscle use. GASTROINTESTINAL: Abdomen soft, non-tender, nondistended. MUSCULOSKELETAL: No cyanosis, or edema. BACK: Nontender without obvious deformity. No CVA tenderness. A/P Assessment and Plan VDRF Pneumonia Aspiration DM Dementia Ventriculomegaly Squamous cell ca PLAN: Vent Support -AC 12, Fi02 40% Cont Abx Aerosol nebs SQ Heparin Code status DNR Prognosis poor Awaiting court/gaurdian decision Luis Madison MD Nov 29, 2016 15:52
[2016-11-30] VITALS (18 sets, daily range): BP systolic 106–184; BP diastolic 52–80; PULSE 77–128; RESP 12–59; TEMP 97.1–99.2; O2SAT 93–99
[2016-11-30] MEDS: HEPARIN SODIUM - SQ 10,000 UNITS/ML VIAL SQ SCH ×4 (00:50→23:06)
[2016-11-30] MEDS: CHLORHEXIDINE GLUCONATE 2 % 1 PACK (2 CLOTHS) TOP SCH (00:55)
[2016-11-30] MEDS: INSULIN NovoLIN REGULAR SUPPLEMENTAL SCALE SQ SCH ×4 (02:00→20:00)
[2016-11-30] MEDS: levETIRAcetam INJ 500 MG in SODIUM CHLORIDE 0.9% INJ 100 ML IV SCH ×2 (03:46→14:44)
[2016-11-30] MEDS: PROPOFOL 1000 MG/100 ML INJ 100 ML IV PRN ×2 (03:53→23:37)
[2016-11-30] MEDS: ARTIFICIAL TEARS OPTH SOLN 15 ML BTL EACH EYE SCH ×3 (06:00→20:57)
[2016-11-30] MEDS: cloNIDine HCL 0.3 MG TAB PO SCH ×3 (06:00→20:56)
[2016-11-30] MEDS: METOPROLOL TARTRATE 50 MG TAB PO SCH ×3 (06:18→20:56)
[2016-11-30] MEDS: CHLORHEXIDINE 0.12% (ORAL KIT) 15 ML CUP MT SCH ×2 (08:00→20:56)
[2016-11-30] MEDS: MUPIROCIN 2% OINT 1 APPLIC/GM SYR EACH NARE SCH ×2 (08:03→20:56)
[2016-11-30] MEDS: INSULIN DETEMIR 100 UNITS/ML VIAL SQ SCH ×2 (08:04→20:57)
[2016-11-30] MEDS: FAMOTIDINE 20 MG TAB PO SCH ×2 (08:04→20:56)
[2016-11-30] MEDS: DOCUSATE SODIUM 100 MG/10 ML UDC PO SCH ×2 (08:05→20:56)
[2016-11-30] MEDS: LACTOBACILLUS ACIDOPHILUS TAB PO SCH ×3 (08:05→18:00)
[2016-11-30] MEDS: SODIUM CHLORIDE 0.9% FLUSH 10 ML FLUSH IV FLUSH SCH ×2 (08:05→20:57)
--- NOTE | 2016-11-30 11:33 | HHI.PR ---
Subjective Remarks 70 YOWF with VDRF,Pneumonia, ? Aspiration Bronchial wash Sq cell ca Mod amount of trach secretions. No fever Sedated with Diprivan. No new complaint Objective Vital Signs Vital Signs Date Time Temp Pulse Resp B/P (MAP) Pulse Ox O2 Delivery O2 Flow Rate FiO2 11/30/16 10:00 120 11/30/16 08:01 94 40 11/30/16 08:00 98.7 120 24 184/80 (114) 95 11/30/16 08:00 40 11/30/16 08:00 120 11/30/16 06:00 118 11/30/16 04:10 94 40 11/30/16 04:00 40 11/30/16 04:00 97.1 104 59 165/74 (104) 93 11/30/16 04:00 104 11/30/16 02:00 96 11/30/16 00:58 96 40 11/30/16 00:00 97.8 85 12 132/60 (84) 95 11/30/16 00:00 40 11/30/16 00:00 85 11/29/16 22:00 82 11/29/16 21:17 93 40 11/29/16 20:00 114 11/29/16 20:00 40 11/29/16 20:00 99.8 114 62 162/68 (99) 94 11/29/16 18:00 95 11/29/16 17:25 98 40 11/29/16 16:00 95 11/29/16 16:00 40 11/29/16 16:00 97.8 88 28 129/63 (85) 96 11/29/16 14:00 95 11/29/16 12:19 98 40 11/29/16 12:00 95 11/29/16 12:00 40 11/29/16 12:00 97.8 125 28 165/73 (103) 96 I/O 11/29/16 11/29/16 11/29/16 11/30/16 11/30/16 11/30/16 07:00 15:00 23:00 07:00 15:00 23:00 Intake Total 1078 ml 1231 ml 952 ml Output Total 500 ml 700 ml 650 ml Balance 578 ml 531 ml 302 ml IV Total 489 ml 586 ml 251 ml Tube Feeding 469 ml 495 ml 461 ml Other 120 ml 150 ml 240 ml Output Urine Total 500 ml 700 ml 650 ml # Bowel Movements 0 1 Objective Remarks GENERAL: MBMN WF, intubated, sedated SKIN: Warm and dry. HEAD: Normocephalic. EYES: No scleral icterus. No injection or drainage. NECK: Supple, trachea midline. No JVD or lymphadenopathy. CARDIOVASCULAR: Regular rate and rhythm without murmurs, gallops, or rubs. RESPIRATORY: Breath sounds equal bilaterally. No accessory muscle use. GASTROINTESTINAL: Abdomen soft, non-tender, nondistended. MUSCULOSKELETAL: No cyanosis, or edema. BACK: Nontender without obvious deformity. No CVA tenderness. A/P Assessment and Plan VDRF Pneumonia Aspiration DM Dementia Ventriculomegaly Squamous cell ca PLAN: Vent Support -AC 12, Fi02 40% Cont Abx Aerosol nebs SQ Heparin Code status DNR Prognosis poor Luis Madison MD Nov 30, 2016 11:33
--- NOTE | 2016-11-30 13:59 | HHI.CCPN ---
Subjective Remarks/Hospital Course HPI 70-year-old residential resident with a medical history significant for dementia, diabetes mellitus, hyperlipidemia, reactive airway disease who was found to have altered mental status at the residential for which EMS was called. Patient was noted to have O2 sats in the 70s. She was very apneic with her head slumped down. Paramedics report of having to hold her head up to have her breathe with the nebulizer treatment in place. Patient was given Solu- Medrol 125 mg IV and 4 nebulizer treatments prior to arrival in the ER for documentation. On arrival in the ER patient was extremely lethargic however was reportedly able to answer some questions. Patient was felt not to be able to protect her airway as well as very hypoxic and hence was intubated by ER physician and placed on mechanical ventilation. Chest x-ray in the ER showed bilateral infiltrates and possible cavitary lesion. She was accepted for admission by critical care medicine service. CT chest was ordered by ER physician. When I evaluated the patient in the ER she was sedated with propofol , orally intubated on mechanical ventilation. History was obtained by reviewing records and discussion with ER physician. 10/29 Patient is sedated with Diprivan and intubated. Afebrile. 10/30 Patient remains sedated and intubated. T:99.7 last night. 10/31: Intubated sedated. CT reviewed and discussed with Dr. Madison. Will consider Bronch. Also check thyroid US and possible biopsy. Check thyroid studies. Also consult palliative care as patient has underlying dementia with NPH and possible malignancy. 11/01: Tmax 100.3. Plan for bronchoscopy at 3:00 today. Noted thyroid masses chronic/since 2011. Tolerating tube feeding. Positive BM. 11/02: Tmax 100.1. Status post bronchoscopy yesterday with removal of mucous plugging. Tolerating tube feeds. Positive BM. Weaning propofol sedation today. 11/03: Tmax 100.6. Noted elevated leukocytosis. Weaning sedation. Positive BM. Tolerate tube feeding. 11/04: Afebrile. UA negative. C. difficile pending. 4 bowel movement overnight. Tolerating tube feeding. No new issues. 11/05 Patient is sedated with Diprivan and intubated. T:100.7. Given Labetalol 10mg IV x3 for hypertension overnight. 11/06 No events overnight. Off sedation. T: 101.5 last night. 11/07: Tmax 102. Currently 100.6. Continues off sedation. Eyes are open to voice but not falling commands. Noted MRI brain unchanged. MRI C-spine revealed no cord compression or cord abnormality's. Severe C5/6 right foraminal narrowing 11/08: Remains intubated sedated, intermittently opens eyes. Per palliative care , bankruptcy judge requesting letter of certification from treatment team. Prior to making a decision to withdraw from life support, the bankruptcy judge is requesting a letter from the covering physicians certifying that she is hospice appropriate and palliative rather than aggressive treatment is appropriate. Dr. Madison thinks hospice is appropriate but also recommends Oncology input. I have consulted medical oncology 11/09 Patient remains intubated, on no sedation, Tmax 103.1 gets tachypneic with CPAP trials 11/10 Patient is intubated had T:100.3 last night. Doesn't follow commands. 11/11 No events overnight. Placed on Precedex drip yesterday to facilitate with weaning trials. T: 99.7. Awake looking around with her eyes but does not following commands. 11/12 Patient remains intubated. On Precedex drip. Did not tolerate CPAP trials yesterday. 11/13 No events overnight. Intubated doesn't tolerate CPAP trials. T:100.5 last night. 11/14 Patient remains intubated. Off sedation. T;100.1 11/15 No events overnight. Intubated. T:100.8 last night. 11/16: Tmax 99.5. Currently resting in bed in no acute distress. Eyes are open but does not follow commands. Off all sedation. Tolerating tube feeding. Positive BM. 11/17: Tmax 100.1. Resting blood eyes open not falling commands. Off all sedation. Tolerating tube feeds. Intermittently hypertensive. 11/18: Tmax 99.5. Moving head back and forth and following commands weakly with bilateral upper extremities. Tolerating tube feeds. Off all sedation 7 days. Subjective 11/19: Asynchronous with the vent. Now on propofol. Probable withdrawal of care today according to palliative care. Waiting to hear back from guardian 11/20: Waiting for bankruptcy judge's order to permit withdrawal from ventilator, and comfort measures. At this time patient is sedated with propofol. Fentanyl as needed 11/21: Sedated with propofol appears comfortable. Bilateral course breath sounds. IV Bumex and DuoNeb ordered 11/22: Patient remains on the vent breathing comfortably on propofol. Bilateral wheezing has improved. No further decision had been made regarding date of withdrawal. 11/23: No change in condition, comfortable on propofol. Patient is synchronous with the ventilator 11/24: Wheezing, tachypneic on vent. DuoNeb will be administered by respiratory 11/25: No recent labs or chest x-ray done. Wheezing improved 11/26: No changes in her mental status or clinical condition. Synchronous with the vent 11/27: No change in clinical condition. Per palliative care notes, Notice of Hearing to take place on November 29, to discuss Emergency Petition to Authorize Removal of Life Support. 11/28: No change in condition, hearing scheduled for tomorrow. Patient appears comfortable 11/29: Hearing is today. No changes in clinical condition. Remains terminally ill with multiple terminal conditions 11/30: Request for withdrawal of life support denied yesterday by the bankruptcy judge. No further updates or changes. See palliative care notes for details Objective Vital Signs Date Time Temp Pulse Resp B/P (MAP) Pulse Ox O2 Delivery O2 Flow Rate FiO2 11/30/16 12:04 99 40 11/30/16 12:00 98.0 128 24 160/66 (97) Intake and Output 11/30/16 11/30/16 12/01/16 08:00 16:00 00:00 Intake Total 952 ml Output Total 650 ml Balance 302 ml Imaging Last Impressions Chest X-Ray 11/18/16 0600 Signed Impressions: Service Date/Time: Friday, November 18, 2016 04:04 - CONCLUSION: Some improvement involving the diffuse bilateral pulmonary infiltrates. Eric Levine Jr., MD Cervical Spine MRI 11/06/16 0000 Signed Impressions: Service Date/Time: Sunday, November 06, 2016 21:36 - CONCLUSION: 1. Multilevel degenerative changes of the cervical spine as above, especially C5/ C6 and C6/C7. 2. Mild to moderate spinal stenosis and severe right foraminal stenosis at C5/C6. 3. Mild spinal stenosis and moderate right foraminal stenosis at C6/C7. 4. No cord compression or cord signal abnormality. 5. No fracture or subluxation. 6. Large nodule of the left lobe of the thyroid gland. There are also upper limits of normal bilateral cervical lymph nodes. Keshav Burks MD Brain MRI 11/06/16 0000 Signed Impressions: Service Date/Time: Sunday, November 06, 2016 21:36 - CONCLUSION: 1. No change or acute abnormality demonstrated. 2. Atrophy, ventriculomegaly and chronic white matter changes are again noted. Keshav Burks MD Thyroid Ultrasound 10/31/16 0000 Signed Impressions: Service Date/Time: Monday, October 31, 2016 11:47 - CONCLUSION: Large complex mass right lobe of the thyroid. Minimally increased in size since Jacoby Torre MD FACR Abdomen X-Ray 10/29/16 0000 Signed Impressions: Service Date/Time: Saturday, October 29, 2016 15:32 - CONCLUSION: Negative for radiopaque foreign bodies. Jacoby Torre MD FACR Chest CT 10/28/161813 Signed Impressions: Service Date/Time: Friday, October 28, 2016 18:28 - CONCLUSION: 1. Abnormality on chest radiograph corresponds to a 3.4 x 3.5 cm central right hilar mass/adenopathy with associated postobstructive airspace consolidation in the inferior right upper lobe. There are at least 2 additional pulmonary nodules measuring 13 x 8 mm in the anterior right middle lobe and 8 x 8 mm in the anterior right upper lobe near the apex. 2. 3.9 x 4.3 cm heterogeneous nodule in the right thyroid gland. No significant regional cervical adenopathy. 3. Patchy bilateral lower lobe air space consolidation and diffuse ground glass opacities. Differential considerations include ARDS versus infection versus aspiration. 1. Tyler Selby MD Head CT 10/28/16 0000 Signed Impressions: Service Date/Time: Friday, October 28, 2016 20:44 - CONCLUSION: 1. No bleed or evidence of acute infarction. 2. Atrophy and chronic white matter changes. 3. Moderate ventriculomegaly, beyond that expected for the degree of atrophy. Normal pressure hydrocephalus would be in the differential. Keshav Burks MD Objective Remarks GENERAL: 71-year-old female, critically ill orotracheally intubated, sedated with propofol SKIN: Warm and dry. HEENT: Atraumatic. Normocephalic. Orotracheally intubated NECK: Trachea midline. No JVD. Right-sided thyromegaly/palpable mass noted CARDIOVASCULAR: Tachycardic, RR. S1, S2 no S4. Without murmur RESPIRATORY: Coarse crackles appreciated bilaterally, bilateral mild wheezes. GASTROINTESTINAL: Abdomen soft, non-tender, nondistended. Hepatic and splenic margins not palpable. MUSCULOSKELETAL: Extremities bilateral trace lower extremity edema. No obvious deformities. NEUROLOGICAL: Heavily sedated on propofol. Intermittently moves extremities, no purposeful movements noted A/P Assessment and Plan Neuro/Psych: Depression/anxiety Toxic metabolic encephalopathy Ventriculomegaly History of dementia On propofol for vent synchrony, monitor neuro status. As needed fentanyl 50 every 2 hours when necessary pain EEG 11/06 triphasic sway/diffuse sharp waves likely moderate encephalopathy cannot rule out proclivity of seizure Neuro Dr. Sampson. CT brain: Moderate ventriculomegaly, beyond that expected for the degree of atrophy. MRI confirms. Neurosurgery has followed- Dr. Hernandez No intervention Holding home medications clonazepam 0.5 mg twice a day and quetiapine 25 mg at night On levetiracetam 500 mg IV twice a day per neurology's EEG above CV: Hypertension Dyslipidemia On Lopressor 50mg Q8, amlodipine 10mg daily, Clonidine 0.3mg Q8 As needed hydralazine and labetalol and Nitropaste for hypertension Holding atorvastatin 40 mg by mouth daily for dyslipidemia. Pulm Acute hypoxemic respiratory failure possibly secondary to post obstructive pneumonia Squamous cell [facility]. Ventilator bundle. No further weaning trials. Request for ventilatory withdrawal and comfort measures denied by Time Stamp As[employer]er yesterday 11/29/16 Albuterol/ipratropium aerosols every 6 hours with albuterol aerosols every [address] chest reviewed revealed 3.4 x 2.5 right hilar mass with post discharge pneumonia in the right upper lobe. Right middle lobe mass. Dr. Madison, s/p bronch with BAL 11/01. Cytology positive (squamous cell carcinoma ) Renal/: Hypernatremia - resolved Monitor renal function, I/O's, electrolytes replacement per protocol. Free water 250 cc every 8 hours tube feeds GI/liver: Mild protein calorie malnutrition Continue with Glucerna 1.5 at 40 cc an hour On famotidine 20mg BID for GI prophylaxis Docusate sodium 100 mg twice a day for bowel regimen ID: Escherichia coli UTI Postobstructive pneumonia Abx per ID (completed fluconazole, aztreonam, meropenem) monitor for signs of infections ( Fever, WBC). Sputum cx 11/09: Pseudomonas, Staph Aureus Follow up on cultures and bronchoscopy 11/01- Yeast species BC 11/04: NGTD Blood cultures 2 - 11/06 - NGTD Sputum 11/06 ESBL E Coli, PSAE, Staph. Strep pneumonia urinary Ag negative. ID has followed Urine cx 10/28: E COLI Heme: Leukocytosis Normocytic anemia SCC lung Monitor CBC. Patient has hilar mass with pulmonary nodules, also thyroid mass. Seen by Oncology-Dr. Xavier patient is not candidate for surgery, chemo radiation given poor performance status, hospice was recommended. Endocrine: Diabetes mellitus Right thyroid mass 6.8 cm/chronic Detemir 20 units Q12 On SSI medium scale Novolin R for glycemic control. Patient is on insulin glargine at home Prophylaxis: Famotidine 20 mg twice a day via OG tube, SCDs/subcutaneous heparin Level 1 follow-up Notice of Hearing to took place November 29. Request for ventilatory withdrawal and comfort measures denied by Time Stamp As[employer]er yesterday 11/29/16. Next hearing Saturday, Dr. Stephenson will represent medical team Trevor Parr MD Nov 30, 2016 13:59
[2016-11-30] MEDS: ACETAMINOPHEN 325 MG TAB PO PRN (14:44)
[2016-12-01] VITALS (17 sets, daily range): BP systolic 137–183; BP diastolic 61–77; PULSE 75–103; RESP 12–48; TEMP 99.5–100.1; O2SAT 99–100
[2016-12-01] MEDS: INSULIN NovoLIN REGULAR SUPPLEMENTAL SCALE SQ SCH ×4 (02:00→20:00)
[2016-12-01] MEDS: levETIRAcetam INJ 500 MG in SODIUM CHLORIDE 0.9% INJ 100 ML IV SCH ×2 (02:57→14:00)
[2016-12-01] MEDS: CHLORHEXIDINE GLUCONATE 2 % 1 PACK (2 CLOTHS) TOP SCH (04:00)
[2016-12-01] MEDS: METOPROLOL TARTRATE 50 MG TAB PO SCH ×3 (05:01→22:27)
[2016-12-01] MEDS: cloNIDine HCL 0.3 MG TAB PO SCH ×3 (05:01→22:00)
[2016-12-01] MEDS: ARTIFICIAL TEARS OPTH SOLN 15 ML BTL EACH EYE SCH ×3 (05:02→22:28)
[2016-12-01] MEDS: CHLORHEXIDINE 0.12% (ORAL KIT) 15 ML CUP MT SCH ×2 (08:11→22:27)
[2016-12-01] MEDS: HEPARIN SODIUM - SQ 10,000 UNITS/ML VIAL SQ SCH ×2 (08:12→16:45)
[2016-12-01] MEDS: PROPOFOL 1000 MG/100 ML INJ 100 ML IV PRN ×2 (08:12→18:13)
[2016-12-01] MEDS: MUPIROCIN 2% OINT 1 APPLIC/GM SYR EACH NARE SCH ×2 (08:14→21:00)
[2016-12-01] MEDS: SODIUM CHLORIDE 0.9% FLUSH 10 ML FLUSH IV FLUSH SCH ×2 (08:15→21:00)
[2016-12-01] MEDS: FAMOTIDINE 20 MG TAB PO SCH ×2 (08:15→22:27)
[2016-12-01] MEDS: DOCUSATE SODIUM 100 MG/10 ML UDC PO SCH ×2 (08:15→21:00)
[2016-12-01] MEDS: LACTOBACILLUS ACIDOPHILUS TAB PO SCH ×3 (08:15→16:45)
[2016-12-01] MEDS: INSULIN DETEMIR 100 UNITS/ML VIAL SQ SCH ×2 (08:16→22:28)
--- NOTE | 2016-12-01 10:49 | HHI.CCPN ---
Subjective Remarks/Hospital Course HPI 70-year-old group home resident with a medical history significant for dementia, diabetes mellitus, hyperlipidemia, reactive airway disease who was found to have altered mental status at the group home for which EMS was called. Patient was noted to have O2 sats in the 70s. She was very apneic with her head slumped down. Paramedics report of having to hold her head up to have her breathe with the nebulizer treatment in place. Patient was given Solu- Medrol 125 mg IV and 4 nebulizer treatments prior to arrival in the ER for documentation. On arrival in the ER patient was extremely lethargic however was reportedly able to answer some questions. Patient was felt not to be able to protect her airway as well as very hypoxic and hence was intubated by ER physician and placed on mechanical ventilation. Chest x-ray in the ER showed bilateral infiltrates and possible cavitary lesion. She was accepted for admission by critical care medicine service. CT chest was ordered by ER physician. When I evaluated the patient in the ER she was sedated with propofol , orally intubated on mechanical ventilation. History was obtained by reviewing records and discussion with ER physician. 10/29 Patient is sedated with Diprivan and intubated. Afebrile. 10/30 Patient remains sedated and intubated. T:99.7 last night. 10/31: Intubated sedated. CT reviewed and discussed with Dr. Madison. Will consider Bronch. Also check thyroid US and possible biopsy. Check thyroid studies. Also consult palliative care as patient has underlying dementia with NPH and possible malignancy. 11/01: Tmax 100.3. Plan for bronchoscopy at 3:00 today. Noted thyroid masses chronic/since 2011. Tolerating tube feeding. Positive BM. 11/02: Tmax 100.1. Status post bronchoscopy yesterday with removal of mucous plugging. Tolerating tube feeds. Positive BM. Weaning propofol sedation today. 11/03: Tmax 100.6. Noted elevated leukocytosis. Weaning sedation. Positive BM. Tolerate tube feeding. 11/04: Afebrile. UA negative. C. difficile pending. 4 bowel movement overnight. Tolerating tube feeding. No new issues. 11/05 Patient is sedated with Diprivan and intubated. T:100.7. Given Labetalol 10mg IV x3 for hypertension overnight. 11/06 No events overnight. Off sedation. T: 101.5 last night. 11/07: Tmax 102. Currently 100.6. Continues off sedation. Eyes are open to voice but not falling commands. Noted MRI brain unchanged. MRI C-spine revealed no cord compression or cord abnormality's. Severe C5/6 right foraminal narrowing 11/08: Remains intubated sedated, intermittently opens eyes. Per palliative care , staple fiber washer requesting letter of certification from treatment team. Prior to making a decision to withdraw from life support, the staple fiber washer is requesting a letter from the covering physicians certifying that she is hospice appropriate and palliative rather than aggressive treatment is appropriate. Dr. Madison thinks hospice is appropriate but also recommends Oncology input. I have consulted medical oncology 11/09 Patient remains intubated, on no sedation, Tmax 103.1 gets tachypneic with CPAP trials 11/10 Patient is intubated had T:100.3 last night. Doesn't follow commands. 11/11 No events overnight. Placed on Precedex drip yesterday to facilitate with weaning trials. T: 99.7. Awake looking around with her eyes but does not following commands. 11/12 Patient remains intubated. On Precedex drip. Did not tolerate CPAP trials yesterday. 11/13 No events overnight. Intubated doesn't tolerate CPAP trials. T:100.5 last night. 11/14 Patient remains intubated. Off sedation. T;100.1 11/15 No events overnight. Intubated. T:100.8 last night. 11/16: Tmax 99.5. Currently resting in bed in no acute distress. Eyes are open but does not follow commands. Off all sedation. Tolerating tube feeding. Positive BM. 11/17: Tmax 100.1. Resting blood eyes open not falling commands. Off all sedation. Tolerating tube feeds. Intermittently hypertensive. 11/18: Tmax 99.5. Moving head back and forth and following commands weakly with bilateral upper extremities. Tolerating tube feeds. Off all sedation 7 days. Subjective 11/19: Asynchronous with the vent. Now on propofol. Probable withdrawal of care today according to palliative care. Waiting to hear back from guardian 11/20: Waiting for staple fiber washer's order to permit withdrawal from ventilator, and comfort measures. At this time patient is sedated with propofol. Fentanyl as needed 11/21: Sedated with propofol appears comfortable. Bilateral course breath sounds. IV Bumex and DuoNeb ordered 11/22: Patient remains on the vent breathing comfortably on propofol. Bilateral wheezing has improved. No further decision had been made regarding date of withdrawal. 11/23: No change in condition, comfortable on propofol. Patient is synchronous with the ventilator 11/24: Wheezing, tachypneic on vent. DuoNeb will be administered by respiratory 11/25: No recent labs or chest x-ray done. Wheezing improved 11/26: No changes in her mental status or clinical condition. Synchronous with the vent 11/27: No change in clinical condition. Per palliative care notes, Notice of Hearing to take place on November 29, to discuss Emergency Petition to Authorize Removal of Life Support. 11/28: No change in condition, hearing scheduled for tomorrow. Patient appears comfortable 11/29: Hearing is today. No changes in clinical condition. Remains terminally ill with multiple terminal conditions 11/30: Request for withdrawal of life support denied yesterday by the staple fiber washer. No further updates or changes. See palliative care notes for details 12/01: No new updates, Patient appears comfortable. Objective Vital Signs Date Time Temp Pulse Resp B/P (MAP) Pulse Ox O2 Delivery O2 Flow Rate FiO2 12/01/16 10:00 100 12/01/16 08:47 100 40 12/01/16 08:00 99.7 13 183/77 (112) Intake and Output 12/01/16 12/01/16 12/02/16 08:00 16:00 00:00 Intake Total 1144 ml Output Total 975 ml Balance 169 ml Imaging Last Impressions Chest X-Ray 11/18/16 0600 Signed Impressions: Service Date/Time: Friday, November 18, 2016 04:04 - CONCLUSION: Some improvement involving the diffuse bilateral pulmonary infiltrates. Eric Levine Jr., MD Cervical Spine MRI 11/06/16 0000 Signed Impressions: Service Date/Time: Sunday, November 06, 2016 21:36 - CONCLUSION: 1. Multilevel degenerative changes of the cervical spine as above, especially C5/ C6 and C6/C7. 2. Mild to moderate spinal stenosis and severe right foraminal stenosis at C5/C6. 3. Mild spinal stenosis and moderate right foraminal stenosis at C6/C7. 4. No cord compression or cord signal abnormality. 5. No fracture or subluxation. 6. Large nodule of the left lobe of the thyroid gland. There are also upper limits of normal bilateral cervical lymph nodes. Keshav Burks MD Brain MRI 11/06/16 0000 Signed Impressions: Service Date/Time: Sunday, November 06, 2016 21:36 - CONCLUSION: 1. No change or acute abnormality demonstrated. 2. Atrophy, ventriculomegaly and chronic white matter changes are again noted. Keshav Burks MD Thyroid Ultrasound 10/31/16 0000 Signed Impressions: Service Date/Time: Monday, October 31, 2016 11:47 - CONCLUSION: Large complex mass right lobe of the thyroid. Minimally increased in size since Jacoby Torre MD FACR Abdomen X-Ray 10/29/16 0000 Signed Impressions: Service Date/Time: Saturday, October 29, 2016 15:32 - CONCLUSION: Negative for radiopaque foreign bodies. Jacoby Torre MD FACR Chest CT 10/28/161813 Signed Impressions: Service Date/Time: Friday, October 28, 2016 18:28 - CONCLUSION: 1. Abnormality on chest radiograph corresponds to a 3.4 x 3.5 cm central right hilar mass/adenopathy with associated postobstructive airspace consolidation in the inferior right upper lobe. There are at least 2 additional pulmonary nodules measuring 13 x 8 mm in the anterior right middle lobe and 8 x 8 mm in the anterior right upper lobe near the apex. 2. 3.9 x 4.3 cm heterogeneous nodule in the right thyroid gland. No significant regional cervical adenopathy. 3. Patchy bilateral lower lobe air space consolidation and diffuse ground glass opacities. Differential considerations include ARDS versus infection versus aspiration. 1. Tyler Selby MD Head CT 10/28/16 0000 Signed Impressions: Service Date/Time: Friday, October 28, 2016 20:44 - CONCLUSION: 1. No bleed or evidence of acute infarction. 2. Atrophy and chronic white matter changes. 3. Moderate ventriculomegaly, beyond that expected for the degree of atrophy. Normal pressure hydrocephalus would be in the differential. Keshav Burks MD Objective Remarks GENERAL: 71-year-old female, critically ill orotracheally intubated, sedated with propofol SKIN: Warm and dry. HEENT: Atraumatic. Normocephalic. Orotracheally intubated NECK: Trachea midline. No JVD. Right-sided thyromegaly/palpable mass noted CARDIOVASCULAR: Tachycardic, RR. S1, S2 no S4. Without murmur RESPIRATORY: Coarse crackles appreciated bilaterally, bilateral mild wheezes. GASTROINTESTINAL: Abdomen soft, non-tender, nondistended. Hepatic and splenic margins not palpable. MUSCULOSKELETAL: Extremities bilateral trace lower extremity edema. No obvious deformities. NEUROLOGICAL: Heavily sedated on propofol. Intermittently moves extremities, no purposeful movements noted A/P Assessment and Plan Neuro/Psych: Depression/anxiety Toxic metabolic encephalopathy Ventriculomegaly History of dementia On propofol for vent synchrony, monitor neuro status. As needed fentanyl 50 every 2 hours when necessary pain EEG 11/06 triphasic sway/diffuse sharp waves likely moderate encephalopathy cannot rule out proclivity of seizure Neuro Dr. Sampson. CT brain: Moderate ventriculomegaly, beyond that expected for the degree of atrophy. MRI confirms. Neurosurgery has followed- Dr. Hernandez No intervention Holding home medications clonazepam 0.5 mg twice a day and quetiapine 25 mg at night On levetiracetam 500 mg IV twice a day per neurology's EEG above CV: Hypertension Dyslipidemia On Lopressor 50mg Q8, amlodipine 10mg daily, Clonidine 0.3mg Q8 As needed hydralazine and labetalol and Nitropaste for hypertension Holding atorvastatin 40 mg by mouth daily for dyslipidemia. Pulm Acute hypoxemic respiratory failure possibly secondary to post obstructive pneumonia Squamous cell carcinoma of Lung PRVC 12/500/0//. Ventilator bundle. No further weaning trials. Request for ventilatory withdrawal and comfort measures denied by [employer]er 11/29/16 , new hearing date Saturday Albuterol/ipratropium aerosols every 6 hours with albuterol aerosols every [address] chest reviewed revealed 3.4 x 2.5 right hilar mass with post discharge pneumonia in the right upper lobe. Right middle lobe mass. Dr. Madison, s/p bronch with BAL 11/01. Cytology positive (squamous cell carcinoma ) Renal/: Hypernatremia - resolved Monitor renal function, I/O's, electrolytes replacement per protocol. Free water 250 cc every 8 hours tube feeds GI/liver: Mild protein calorie malnutrition Continue with Glucerna 1.5 at 40 cc an hour On famotidine 20mg BID for GI prophylaxis Docusate sodium 100 mg twice a day for bowel regimen ID: Escherichia coli UTI Postobstructive pneumonia Abx per ID (completed fluconazole, aztreonam, meropenem) monitor for signs of infections ( Fever, WBC). Sputum cx 11/09: Pseudomonas, Staph Aureus Follow up on cultures and bronchoscopy 11/01- Yeast species BC 11/04: NGTD Blood cultures 2 - 11/06 - NGTD Sputum 11/06 ESBL E Coli, PSAE, Staph. Strep pneumonia urinary Ag negative. ID has followed Urine cx 10/28: E COLI Heme: Leukocytosis Normocytic anemia SCC lung Monitor CBC. Patient has hilar mass with pulmonary nodules, also thyroid mass. Seen by Oncology-Dr. Xavier patient is not candidate for surgery, chemo radiation given poor performance status, hospice was recommended. Endocrine: Diabetes mellitus Right thyroid mass 6.8 cm/chronic Detemir 20 units Q12 On SSI medium scale Novolin R for glycemic control. Patient is on insulin glargine at home Prophylaxis: Famotidine 20 mg twice a day via OG tube, SCDs/subcutaneous heparin Level 1 follow-up Notice of Hearing took place November 29. Request for ventilatory withdrawal and comfort measures denied by [employer]. Next hearing Saturday, Dr. Stephenson will represent medical team Trevor Parr MD Dec 01, 2016 10:49
[2016-12-02] VITALS (16 sets, daily range): BP systolic 134–164; BP diastolic 60–74; PULSE 75–96; RESP 12–35; TEMP 99–100.4; O2SAT 100
[2016-12-02] MEDS: INSULIN NovoLIN REGULAR SUPPLEMENTAL SCALE SQ SCH ×4 (01:26→20:00)
[2016-12-02] MEDS: HEPARIN SODIUM - SQ 10,000 UNITS/ML VIAL SQ SCH ×3 (01:26→16:03)
[2016-12-02] MEDS: levETIRAcetam INJ 500 MG in SODIUM CHLORIDE 0.9% INJ 100 ML IV SCH ×2 (03:59→16:02)
[2016-12-02] MEDS: CHLORHEXIDINE GLUCONATE 2 % 1 PACK (2 CLOTHS) TOP SCH (04:00)
[2016-12-02 05:11] LABS: AUTOMATED NEUTROPHIL # 9.4 TH/MM3 (1.8-7.7); BASOPHIL # 0.1 TH/MM3 (0-0.2); BASOPHIL % 0.6 % (0.0-2.0); EOSINOPHIL # 0.8 TH/MM3 (0-0.4); HEMATOCRIT 24.3 % (35.0-46.0); LYMPH % 24.2 % (9.0-44.0); LYMPHOCYTE # 3.7 TH/MM3 (1.0-4.8); MEAN CORPUSCULAR HEMOGLOBIN 28.6 PG (27.0-34.0); MEAN CORPUSCULAR HGB CONC 32.5 % (32.0-36.0); MONO % 8.5 % (0.0-8.0); NEUT % 61.7 % (16.0-70.0); PLATELET COUNT 420 TH/MM3 (150-450); RED BLOOD COUNT 2.76 MIL/MM3 (4.00-5.30); RED CELL DISTRIBUTION WIDTH 14.8 % (11.6-17.2); WHITE BLOOD COUNT 15.2 TH/MM3 (4.0-11.0)
[2016-12-02 05:33] LABS: ANION GAP 6 MEQ/L (5-15); AST (GOT) 14 U/L (15-37); BICARBONATE 28.5 MEQ/L (21.0-32.0); BLOOD UREA NITROGEN 29 MG/DL (7-18); CHLORIDE 109 MEQ/L (98-107); GLOMERULAR FILTRATION RATE 98 ML/MIN (>89); POTASSIUM 4.5 MEQ/L (3.5-5.1); SODIUM (NA) 143 MEQ/L (136-145)
[2016-12-02 05:35] LABS: HEMO FLAGS AUTO DIFF
[2016-12-02 05:36] LABS: ALKALINE PHOSPHATASE 73 U/L (45-117); ALT (GPT) 12 U/L (10-53); TOTAL BILIRUBIN ADULT 0.2 MG/DL (0.2-1.0)
--- NOTE | 2016-12-02 05:47 | RADRPT ---
EXAM DATE/TIME: 12/02/2016 03:57 [facility] COMPARISON: CHEST SINGLE AP, November 19, 2016, 3:49. INDICATIONS : Shortness of breath, possible pulmonary disease. MEDICAL HISTORY : Diabetes mellitus type II. Hypertension SURGICAL HISTORY : None. ENCOUNTER: Subsequent ACUITY: 2 weeks PAIN SCORE: Non-responsive. LOCATION: Bilateral chest FINDINGS: A single AP semierect view of the chest was obtained and demonstrates increased opacity in the right upper lobe and right lung base. There is new consolidative opacity at the left lung base. The heart s ize is at the upper limits of normal. Patient is mildly rotated to the left. The endotracheal tube re telma in place with the tip approximately 3 cm above the radhika. A nasogastric tube is again seen cou rsing through the esophagus into the stomach. There is apparent mild blunting of the costophrenic ang les. CONCLUSION: 1. The patient is now mildly rotated to the left with increased opacity in both lungs of concern for pneumonia or asymmetric pulmonary edema. 2. There are probable small effusions. Arun Martinez MD on December 02, 2016 at 5:45 Board Certified Radiologist. This report was verified electronically.
[2016-12-02] MEDS: cloNIDine HCL 0.3 MG TAB PO SCH ×3 (06:00→20:48)
[2016-12-02] MEDS: PROPOFOL 1000 MG/100 ML INJ 100 ML IV PRN ×3 (06:10→21:18)
[2016-12-02] MEDS: ARTIFICIAL TEARS OPTH SOLN 15 ML BTL EACH EYE SCH ×3 (06:12→20:49)
[2016-12-02] MEDS: METOPROLOL TARTRATE 50 MG TAB PO SCH ×3 (06:12→20:48)
[2016-12-02 07:26] LABS: SCAN/DIFF AUTO DIFF CONFIRMED
[2016-12-02] MEDS: FAMOTIDINE 20 MG TAB PO SCH ×2 (08:55→20:48)
[2016-12-02] MEDS: LACTOBACILLUS ACIDOPHILUS TAB PO SCH ×3 (08:55→18:00)
[2016-12-02] MEDS: CHLORHEXIDINE 0.12% (ORAL KIT) 15 ML CUP MT SCH ×2 (08:55→20:49)
[2016-12-02] MEDS: DOCUSATE SODIUM 100 MG/10 ML UDC PO SCH ×2 (08:56→20:48)
[2016-12-02] MEDS: MUPIROCIN 2% OINT 1 APPLIC/GM SYR EACH NARE SCH ×2 (08:56→20:49)
[2016-12-02] MEDS: SODIUM CHLORIDE 0.9% FLUSH 10 ML FLUSH IV FLUSH SCH ×2 (08:57→20:49)
[2016-12-02] MEDS: INSULIN DETEMIR 100 UNITS/ML VIAL SQ SCH ×2 (08:57→20:50)
--- NOTE | 2016-12-02 12:59 | HHI.CCPN ---
Subjective Remarks/Hospital Course HPI 70-[facility]-old [facility] resident with a medical history significant for dementia, diabetes mellitus, hyperlipidemia, reactive airway disease who was found to have altered mental status at the [facility] for which EMS was called. Patient was noted to have O2 sats in the 70s. She was very apneic with her head slumped down. Paramedics report of having to hold her head up to have her breathe with the nebulizer treatment in place. Patient was given Solu- Medrol 125 mg IV and 4 nebulizer treatments prior to arrival in the ER for documentation. On arrival in the ER patient was extremely lethargic however was reportedly able to answer some questions. Patient was felt not to be able to protect her airway as well as very hypoxic and hence was intubated by ER physician and placed on mechanical ventilation. Chest x-ray in the ER showed bilateral infiltrates and possible cavitary lesion. She was accepted for admission by critical care medicine service. CT chest was ordered by ER physician. When I evaluated the patient in the ER she was sedated with propofol , orally intubated on mechanical ventilation. History was obtained by reviewing records and discussion with ER physician. 10/29 Patient is sedated with Diprivan and intubated. Afebrile. 10/30 Patient remains sedated and intubated. T:99.7 last night. 10/31: Intubated sedated. CT reviewed and discussed with Dr. Madison. Will consider Bronch. Also check thyroid US and possible biopsy. Check thyroid studies. Also consult palliative care as patient has underlying dementia with NPH and possible malignancy. 11/01: Tmax 100.3. Plan for bronchoscopy at 3:00 today. Noted thyroid masses chronic/since 2011. Tolerating tube feeding. Positive BM. 11/02: Tmax 100.1. Status post bronchoscopy yesterday with removal of mucous plugging. Tolerating tube feeds. Positive BM. Weaning propofol sedation today. 11/03: Tmax 100.6. Noted elevated leukocytosis. Weaning sedation. Positive BM. Tolerate tube feeding. 11/04: Afebrile. UA negative. C. difficile pending. 4 bowel movement overnight. Tolerating tube feeding. No new issues. 11/05 Patient is sedated with Diprivan and intubated. T:100.7. Given Labetalol 10mg IV x3 for hypertension overnight. 11/06 No events overnight. Off sedation. T: 101.5 last night. 11/07: Tmax 102. Currently 100.6. Continues off sedation. Eyes are open to voice but not falling commands. Noted MRI brain unchanged. MRI C-spine revealed no cord compression or cord abnormality's. Severe C5/6 right foraminal narrowing 11/08: Remains intubated sedated, intermittently opens eyes. Per palliative care , web site project manager requesting letter of certification from treatment team. Prior to making a decision to withdraw from life support, the web site project manager is requesting a letter from the covering physicians certifying that she is hospice appropriate and palliative rather than aggressive treatment is appropriate. Dr. Madison thinks hospice is appropriate but also recommends Oncology input. I have consulted medical oncology 11/09 Patient remains intubated, on no sedation, Tmax 103.1 gets tachypneic with CPAP trials 11/10 Patient is intubated had T:100.3 last night. Doesn't follow commands. 11/11 No events overnight. Placed on Precedex drip yesterday to facilitate with weaning trials. T: 99.7. Awake looking around with her eyes but does not following commands. 11/12 Patient remains intubated. On Precedex drip. Did not tolerate CPAP trials yesterday. 11/13 No events overnight. Intubated doesn't tolerate CPAP trials. T:100.5 last night. 11/14 Patient remains intubated. Off sedation. T;100.1 11/15 No events overnight. Intubated. T:100.8 last night. 11/16: Tmax 99.5. Currently resting in bed in no acute distress. Eyes are open but does not follow commands. Off all sedation. Tolerating tube feeding. Positive BM. 11/17: Tmax 100.1. Resting blood eyes open not falling commands. Off all sedation. Tolerating tube feeds. Intermittently hypertensive. 11/18: Tmax 99.5. Moving head back and forth and following commands weakly with bilateral upper extremities. Tolerating tube feeds. Off all sedation 7 days. Subjective 11/19: Asynchronous with the vent. Now on propofol. Probable withdrawal of care today according to palliative care. Waiting to hear back from guardian 11/20: Waiting for web site project manager's order to permit withdrawal from ventilator, and comfort measures. At this time patient is sedated with propofol. Fentanyl as needed 11/21: Sedated with propofol appears comfortable. Bilateral course breath sounds. IV Bumex and DuoNeb ordered 11/22: Patient remains on the vent breathing comfortably on propofol. Bilateral wheezing has improved. No further decision had been made regarding date of withdrawal. 11/23: No change in condition, comfortable on propofol. Patient is synchronous with the ventilator 11/24: Wheezing, tachypneic on vent. DuoNeb will be administered by respiratory 11/25: No recent labs or chest x-ray done. Wheezing improved 11/26: No changes in her mental status or clinical condition. Synchronous with the vent 11/27: No change in clinical condition. Per palliative care notes, Notice of Hearing to take place on November 29, to discuss Emergency Petition to Authorize Removal of Life Support. 11/28: No change in condition, hearing scheduled for tomorrow. Patient appears comfortable 11/29: Hearing is today. No changes in clinical condition. Remains terminally ill with multiple terminal conditions 11/30: Request for withdrawal of life support denied yesterday by the web site project manager. No further updates or changes. See palliative care notes for details 12/01: No new updates, Patient appears comfortable. 12/02; Remains intubated, sedated for comfort. No evidence of meaningful recovery, continues to be terminally ill. Objective Vital Signs Date Time Temp Pulse Resp B/P (MAP) Pulse Ox O2 Delivery O2 Flow Rate FiO2 12/02/16 12:00 92 12/02/16 12:00 40 12/02/16 11:31 100 12/02/16 08:00 100.3 12 155/68 (97) Intake and Output 12/02/16 12/02/16 12/03/16 08:00 16:00 00:00 Intake Total 750 ml Output Total 575 ml Balance 175 ml Result Diagram: 12/02/16 0418 12/02/16 0418 Imaging Last Impressions Chest X-Ray 11/18/16 0600 Signed Impressions: Service Date/Time: Friday, November 18, 2016 04:04 - CONCLUSION: Some improvement involving the diffuse bilateral pulmonary infiltrates. Eric Levine Jr., MD Cervical Spine MRI 11/06/16 0000 Signed Impressions: Service Date/Time: Sunday, November 06, 2016 21:36 - CONCLUSION: 1. Multilevel degenerative changes of the cervical spine as above, especially C5/ C6 and C6/C7. 2. Mild to moderate spinal stenosis and severe right foraminal stenosis at C5/C6. 3. Mild spinal stenosis and moderate right foraminal stenosis at C6/C7. 4. No cord compression or cord signal abnormality. 5. No fracture or subluxation. 6. Large nodule of the left lobe of the thyroid gland. There are also upper limits of normal bilateral cervical lymph nodes. Keshav Burks MD Brain MRI 11/06/16 0000 Signed Impressions: Service Date/Time: Sunday, November 06, 2016 21:36 - CONCLUSION: 1. No change or acute abnormality demonstrated. 2. Atrophy, ventriculomegaly and chronic white matter changes are again noted. Keshav Burks MD Thyroid Ultrasound 10/31/16 0000 Signed Impressions: Service Date/Time: Monday, October 31, 2016 11:47 - CONCLUSION: Large complex mass right lobe of the thyroid. Minimally increased in size since Jacoby Torre MD FACR Abdomen X-Ray 10/29/16 0000 Signed Impressions: Service Date/Time: Saturday, October 29, 2016 15:32 - CONCLUSION: Negative for radiopaque foreign bodies. Jacoby Torre MD FACR Chest CT 10/28/16 1814 Signed Impressions: Service Date/Time: Friday, October 28, 2016 18:28 - CONCLUSION: 1. Abnormality on chest radiograph corresponds to a 3.4 x 3.5 cm central right hilar mass/adenopathy with associated postobstructive airspace consolidation in the inferior right upper lobe. There are at least 2 additional pulmonary nodules measuring 13 x 8 mm in the anterior right middle lobe and 8 x 8 mm in the anterior right upper lobe near the apex. 2. 3.9 x 4.3 cm heterogeneous nodule in the right thyroid gland. No significant regional cervical adenopathy. 3. Patchy bilateral lower lobe air space consolidation and diffuse ground glass opacities. Differential considerations include ARDS versus infection versus aspiration. 1. Tyler Selby MD Head CT 10/28/16 0000 Signed Impressions: Service Date/Time: Friday, October 28, 2016 20:44 - CONCLUSION: 1. No bleed or evidence of acute infarction. 2. Atrophy and chronic white matter changes. 3. Moderate ventriculomegaly, beyond that expected for the degree of atrophy. Normal pressure hydrocephalus would be in the differential. Keshav Burks MD Objective Remarks GENERAL: 71-year-old female, critically ill orotracheally intubated, sedated with propofol SKIN: Warm and dry. HEENT: Atraumatic. Normocephalic. Orotracheally intubated NECK: Trachea midline. No JVD. Right-sided thyromegaly/palpable mass noted CARDIOVASCULAR: RR. S1, S2 no S4. Without murmur RESPIRATORY: Coarse crackles appreciated bilaterally, bilateral mild wheezes. GASTROINTESTINAL: Abdomen soft, non-tender, nondistended. Hepatic and splenic margins not palpable. MUSCULOSKELETAL: Extremities bilateral trace lower extremity edema. No obvious deformities. NEUROLOGICAL: Heavily sedated on propofol. Intermittently moves extremities, no purposeful movements noted A/P Assessment and Plan Neuro/Psych: Depression/anxiety Toxic metabolic encephalopathy Ventriculomegaly History of dementia On propofol for vent synchrony, monitor neuro status. As needed fentanyl 50 every 2 hours when necessary pain EEG 11/06 triphasic sway/diffuse sharp waves likely moderate encephalopathy cannot rule out proclivity of seizure Neuro Dr. Sampson. CT brain: Moderate ventriculomegaly, beyond that expected for the degree of atrophy. MRI confirms. Neurosurgery Dr. Hernandez No intervention Holding home medications clonazepam 0.5 mg twice a day and quetiapine 25 mg at night On levetiracetam 500 mg IV twice a day per neurology's EEG above CV: Hypertension Dyslipidemia On Lopressor 50mg Q8, amlodipine 10mg daily, Clonidine 0.3mg Q8 As needed hydralazine and labetalol and Nitropaste for hypertension Holding atorvastatin 40 mg by mouth daily for dyslipidemia. Pulm Acute hypoxemic respiratory failure possibly secondary to post obstructive pneumonia Squamous cell carcinoma of Lung PRV 12/0/10/17/39. Ventilator bundle. No further weaning trials. Request for ventilatory withdrawal and comfort measures denied by Canal Superintendent 11/29/16 , new hearing date Saturday Albuterol/ipratropium aerosols every 6 hours with albuterol aerosols every [address] chest reviewed revealed 3.4 x 2.5 right hilar mass with post discharge pneumonia in the right upper lobe. Right middle lobe mass. Dr. Madison, s/p bronch with BAL 11/01. Cytology positive (squamous cell carcinoma ) Renal/: Hypernatremia - resolved Monitor renal function, I/O's, electrolytes replacement per protocol. GI/liver: Mild protein calorie malnutrition Continue with Glucerna 1.5 at 40 cc an hour On famotidine 20mg BID for GI prophylaxis Docusate sodium 100 mg twice a day for bowel regimen ID: Escherichia coli UTI Postobstructive pneumonia Abx per ID (completed fluconazole, aztreonam, meropenem) monitor for signs of infections ( Fever, WBC). Sputum cx 11/09: Pseudomonas, Staph Aureus Follow up on cultures and bronchoscopy 11/01- Yeast species BC 11/04: NGTD Blood cultures 2 - 11/06 - NGTD Sputum 11/06 ESBL E Coli, PSAE, Staph. Strep pneumonia urinary Ag negative. ID has followed Urine cx 10/28: E COLI Heme: Leukocytosis Normocytic anemia SCC lung Patient has hilar mass with pulmonary nodules, also thyroid mass. Seen by Oncology-Dr. Xavier patient is not candidate for surgery, chemo radiation given poor performance status, hospice was recommended. Endocrine: Diabetes mellitus Right thyroid mass 6.8 cm/chronic Detemir 20 units Q12 On SSI medium scale Novolin R for glycemic control. Patient is on insulin glargine at home Prophylaxis: Famotidine 20 mg twice a day via OG tube, SCDs/subcutaneous heparin Level 1 follow-up Notice of Hearing took place November 29. Request for ventilatory withdrawal and comfort measures denied by Canal Superintendent. Next hearing Saturday, Dr. Stephenson will represent medical team Trevor Parr MD Dec 02, 2016 12:59
[2016-12-02] MEDS: LABETALOL HCL 100 MG/20 ML VIAL IV PUSH PRN (22:06)
[2016-12-03] VITALS (17 sets, daily range): BP systolic 114–170; BP diastolic 55–74; PULSE 92–124; RESP 12–42; TEMP 97.6–100.5; O2SAT 100
[2016-12-03] MEDS: INSULIN NovoLIN REGULAR SUPPLEMENTAL SCALE SQ SCH ×4 (01:04→20:00)
[2016-12-03] MEDS: HEPARIN SODIUM - SQ 10,000 UNITS/ML VIAL SQ SCH ×3 (01:04→15:10)
[2016-12-03] MEDS: levETIRAcetam INJ 500 MG in SODIUM CHLORIDE 0.9% INJ 100 ML IV SCH ×2 (01:04→15:10)
[2016-12-03] MEDS: CHLORHEXIDINE GLUCONATE 2 % 1 PACK (2 CLOTHS) TOP SCH (01:05)
[2016-12-03] MEDS: ARTIFICIAL TEARS OPTH SOLN 15 ML BTL EACH EYE SCH ×3 (05:42→20:40)
[2016-12-03] MEDS: METOPROLOL TARTRATE 50 MG TAB PO SCH ×3 (05:43→20:37)
[2016-12-03] MEDS: cloNIDine HCL 0.3 MG TAB PO SCH ×3 (05:43→20:37)
[2016-12-03] MEDS: PROPOFOL 1000 MG/100 ML INJ 100 ML IV PRN ×3 (05:51→18:23)
--- NOTE | 2016-12-03 07:59 | HHI.CCPN ---
Subjective Remarks/Hospital Course HPI 70-year-old correction resident with a medical history significant for dementia, diabetes mellitus, hyperlipidemia, reactive airway disease who was found to have altered mental status at the correction for which EMS was called. Patient was noted to have O2 sats in the 70s. She was very apneic with her head slumped down. Paramedics report of having to hold her head up to have her breathe with the nebulizer treatment in place. Patient was given Solu- Medrol 125 mg IV and 4 nebulizer treatments prior to arrival in the ER for documentation. On arrival in the ER patient was extremely lethargic however was reportedly able to answer some questions. Patient was felt not to be able to protect her airway as well as very hypoxic and hence was intubated by ER physician and placed on mechanical ventilation. Chest x-ray in the ER showed bilateral infiltrates and possible cavitary lesion. She was accepted for admission by critical care medicine service. CT chest was ordered by ER physician. When I evaluated the patient in the ER she was sedated with propofol , orally intubated on mechanical ventilation. History was obtained by reviewing records and discussion with ER physician. 10/29 Patient is sedated with Diprivan and intubated. Afebrile. 10/30 Patient remains sedated and intubated. T:99.7 last night. 10/31: Intubated sedated. CT reviewed and discussed with Dr. Madison. Will consider Bronch. Also check thyroid US and possible biopsy. Check thyroid studies. Also consult palliative care as patient has underlying dementia with NPH and possible malignancy. 11/01: Tmax 100.3. Plan for bronchoscopy at 3:00 today. Noted thyroid masses chronic/since 2011. Tolerating tube feeding. Positive BM. 11/02: Tmax 100.1. Status post bronchoscopy yesterday with removal of mucous plugging. Tolerating tube feeds. Positive BM. Weaning propofol sedation today. 11/03: Tmax 100.6. Noted elevated leukocytosis. Weaning sedation. Positive BM. Tolerate tube feeding. 11/04: Afebrile. UA negative. C. difficile pending. 4 bowel movement overnight. Tolerating tube feeding. No new issues. 11/05 Patient is sedated with Diprivan and intubated. T:100.7. Given Labetalol 10mg IV x3 for hypertension overnight. 11/06 No events overnight. Off sedation. T: 101.5 last night. 11/07: Tmax 102. Currently 100.6. Continues off sedation. Eyes are open to voice but not falling commands. Noted MRI brain unchanged. MRI C-spine revealed no cord compression or cord abnormality's. Severe C5/6 right foraminal narrowing 11/08: Remains intubated sedated, intermittently opens eyes. Per palliative care , diversity specialist requesting letter of certification from treatment team. Prior to making a decision to withdraw from life support, the diversity specialist is requesting a letter from the covering physicians certifying that she is hospice appropriate and palliative rather than aggressive treatment is appropriate. Dr. Madison thinks hospice is appropriate but also recommends Oncology input. I have consulted medical oncology 11/09 Patient remains intubated, on no sedation, Tmax 103.1 gets tachypneic with CPAP trials 11/10 Patient is intubated had T:100.3 last night. Doesn't follow commands. 11/11 No events overnight. Placed on Precedex drip yesterday to facilitate with weaning trials. T: 99.7. Awake looking around with her eyes but does not following commands. 11/12 Patient remains intubated. On Precedex drip. Did not tolerate CPAP trials yesterday. 11/13 No events overnight. Intubated doesn't tolerate CPAP trials. T:100.5 last night. 11/14 Patient remains intubated. Off sedation. T;100.1 11/15 No events overnight. Intubated. T:100.8 last night. 11/16: Tmax 99.5. Currently resting in bed in no acute distress. Eyes are open but does not follow commands. Off all sedation. Tolerating tube feeding. Positive BM. 11/17: Tmax 100.1. Resting blood eyes open not falling commands. Off all sedation. Tolerating tube feeds. Intermittently hypertensive. 11/18: Tmax 99.5. Moving head back and forth and following commands weakly with bilateral upper extremities. Tolerating tube feeds. Off all sedation 7 days. 11/19: Asynchronous with the vent. Now on propofol. Probable withdrawal of care today according to palliative care. Waiting to hear back from guardian 11/20: Waiting for diversity specialist's order to permit withdrawal from ventilator, and comfort measures. At this time patient is sedated with propofol. Fentanyl as needed 11/21: Sedated with propofol appears comfortable. Bilateral course breath sounds. IV Bumex and DuoNeb ordered 11/22: Patient remains on the vent breathing comfortably on propofol. Bilateral wheezing has improved. No further decision had been made regarding date of withdrawal. 11/23: No change in condition, comfortable on propofol. Patient is synchronous with the ventilator 11/24: Wheezing, tachypneic on vent. DuoNeb will be administered by respiratory 11/25: No recent labs or chest x-ray done. Wheezing improved 11/26: No changes in her mental status or clinical condition. Synchronous with the vent 11/27: No change in clinical condition. Per palliative care notes, Notice of Hearing to take place on November 29, to discuss Emergency Petition to Authorize Removal of Life Support. 11/28: No change in condition, hearing scheduled for tomorrow. Patient appears comfortable 11/29: Hearing is today. No changes in clinical condition. Remains terminally ill with multiple terminal conditions 11/30: Request for withdrawal of life support denied yesterday by the diversity specialist. No further updates or changes. See palliative care notes for details 12/01: No new updates, Patient appears comfortable. 12/02; Remains intubated, sedated for comfort. No evidence of meaningful recovery, continues to be terminally ill. Subjective 12/03: no changes or improvements. terminally ill without hope of recovery. Objective Vital Signs Date Time Temp Pulse Resp B/P (MAP) Pulse Ox O2 Delivery O2 Flow Rate FiO2 12/03/16 04:58 100 40 12/03/16 04:00 98.6 104 42 167/72 (103) Intake and Output 12/03/16 12/03/16 12/04/16 08:00 16:00 00:00 Intake Total 753 ml Output Total 900 ml Balance -147 ml Result Diagram: 12/02/16 0418 12/02/16 0418 Imaging Last Impressions Chest X-Ray 11/18/16 0600 Signed Impressions: Service Date/Time: Friday, November 18, 2016 04:04 - CONCLUSION: Some improvement involving the diffuse bilateral pulmonary infiltrates. Eric Levine Jr., MD Cervical Spine MRI 11/06/16 0000 Signed Impressions: Service Date/Time: Sunday, November 06, 2016 21:36 - CONCLUSION: 1. Multilevel degenerative changes of the cervical spine as above, especially C5/ C6 and C6/C7. 2. Mild to moderate spinal stenosis and severe right foraminal stenosis at C5/C6. 3. Mild spinal stenosis and moderate right foraminal stenosis at C6/C7. 4. No cord compression or cord signal abnormality. 5. No fracture or subluxation. 6. Large nodule of the left lobe of the thyroid gland. There are also upper limits of normal bilateral cervical lymph nodes. Keshav Burks MD Brain MRI 11/06/16 0000 Signed Impressions: Service Date/Time: Sunday, November 06, 2016 21:36 - CONCLUSION: 1. No change or acute abnormality demonstrated. 2. Atrophy, ventriculomegaly and chronic white matter changes are again noted. Keshav Burks MD Thyroid Ultrasound 10/31/16 0000 Signed Impressions: Service Date/Time: Monday, October 31, 2016 11:47 - CONCLUSION: Large complex mass right lobe of the thyroid. Minimally increased in size since Jacoby Torre MD FACR Abdomen X-Ray 10/29/16 0000 Signed Impressions: Service Date/Time: Saturday, October 29, 2016 15:32 - CONCLUSION: Negative for radiopaque foreign bodies. Jacoby Torre MD FACR Chest CT 10/28/16 1814 Signed Impressions: Service Date/Time: Friday, October 28, 2016 18:28 - CONCLUSION: 1. Abnormality on chest radiograph corresponds to a 3.4 x 3.5 cm central right hilar mass/adenopathy with associated postobstructive airspace consolidation in the inferior right upper lobe. There are at least 2 additional pulmonary nodules measuring 13 x 8 mm in the anterior right middle lobe and 8 x 8 mm in the anterior right upper lobe near the apex. 2. 3.9 x 4.3 cm heterogeneous nodule in the right thyroid gland. No significant regional cervical adenopathy. 3. Patchy bilateral lower lobe air space consolidation and diffuse ground glass opacities. Differential considerations include ARDS versus infection versus aspiration. 1. Tyler Selby MD Head CT 10/28/16 0000 Signed Impressions: Service Date/Time: Friday, October 28, 2016 20:44 - CONCLUSION: 1. No bleed or evidence of acute infarction. 2. Atrophy and chronic white matter changes. 3. Moderate ventriculomegaly, beyond that expected for the degree of atrophy. Normal pressure hydrocephalus would be in the differential. Keshav Burks MD Objective Remarks GENERAL: 71-year-old female, critically ill orotracheally intubated, sedated SKIN: Warm and dry. HEENT: Atraumatic. Normocephalic. Orotracheally intubated NECK: Trachea midline. No JVD. Right-sided thyromegaly/palpable mass noted CARDIOVASCULAR: RR. RESPIRATORY: unlabored. equal chest rise.on full support. GASTROINTESTINAL: Abdomen soft, non-tender, nondistended. MUSCULOSKELETAL: Extremities bilateral trace lower extremity edema. No obvious deformities. NEUROLOGICAL: sedated. Intermittently moves extremities, no purposeful movements noted A/P Assessment and Plan Neuro/Psych: Depression/anxiety Toxic metabolic encephalopathy Ventriculomegaly History of dementia On propofol for vent synchrony, monitor neuro status. As needed fentanyl 50 every 2 hours when necessary pain EEG 11/06 triphasic sway/diffuse sharp waves likely moderate encephalopathy cannot rule out proclivity of seizure Neuro Dr. Sampson. CT brain: Moderate ventriculomegaly, beyond that expected for the degree of atrophy. MRI confirms. Neurosurgery Dr. Hernandez No intervention Holding home medications clonazepam 0.5 mg twice a day and quetiapine 25 mg at night On levetiracetam 500 mg IV twice a day per neurology's EEG above CV: Hypertension Dyslipidemia On Lopressor 50mg Q8, amlodipine 10mg daily, Clonidine 0.3mg Q8 As needed hydralazine and labetalol and Nitropaste for hypertension Holding atorvastatin 40 mg by mouth daily for dyslipidemia. Pulm Acute hypoxemic respiratory failure possibly secondary to post obstructive pneumonia Squamous cell carcinoma of Lung PRV 12/500/0/10/17/39. Ventilator bundle. No further weaning trials. Request for ventilatory withdrawal and comfort measures denied by Clinical Application Consultant 11/29/16 , new hearing date Monday 12/04 Albuterol/ipratropium aerosols every 6 hours with albuterol aerosols every [address] chest reviewed revealed 3.4 x 2.5 right hilar mass with post discharge pneumonia in the right upper lobe. Right middle lobe mass. Dr. Madison, s/p bronch with BAL 11/01. Cytology positive (squamous cell carcinoma ) Renal/: Hypernatremia - resolved Monitor renal function, I/O's, electrolytes replacement per protocol. GI/liver: Mild protein calorie malnutrition Continue with Glucerna 1.5 at 40 cc an hour On famotidine 20mg BID for GI prophylaxis Docusate sodium 100 mg twice a day for bowel regimen ID: Escherichia coli UTI Postobstructive pneumonia Abx per ID (completed fluconazole, aztreonam, meropenem) monitor for signs of infections ( Fever, WBC). Sputum cx 11/09: Pseudomonas, Staph Aureus Follow up on cultures and bronchoscopy 11/01- Yeast species BC 11/04: NGTD Blood cultures 2 - 11/06 - NGTD Sputum 11/06 ESBL E Coli, PSAE, Staph. Strep pneumonia urinary Ag negative. ID has followed Urine cx 10/28: E COLI Heme: Leukocytosis Normocytic anemia SCC lung Patient has hilar mass with pulmonary nodules, also thyroid mass. Seen by Oncology-Dr. Xavier patient is not candidate for surgery, chemo radiation given poor performance status, hospice was recommended. Endocrine: Diabetes mellitus Right thyroid mass 6.8 cm/chronic Detemir 20 units Q12 On SSI medium scale Novolin R for glycemic control. Patient is on insulin glargine at home Prophylaxis: Famotidine 20 mg twice a day via OG tube, SCDs/subcutaneous heparin Level 1 follow-up Notice of Hearing took place November 29. Request for ventilatory withdrawal and comfort measures denied by Clinical Application Consultant. Next hearing Saturday, Dr. Stephenson will represent medical team Jamie Gong MD Dec 03, 2016 07:59
[2016-12-03] MEDS: INSULIN DETEMIR 100 UNITS/ML VIAL SQ SCH ×2 (09:31→20:39)
[2016-12-03] MEDS: MUPIROCIN 2% OINT 1 APPLIC/GM SYR EACH NARE SCH ×2 (09:32→20:38)
[2016-12-03] MEDS: DOCUSATE SODIUM 100 MG/10 ML UDC PO SCH ×2 (09:33→20:37)
[2016-12-03] MEDS: LACTOBACILLUS ACIDOPHILUS TAB PO SCH ×3 (09:33→16:58)
[2016-12-03] MEDS: FAMOTIDINE 20 MG TAB PO SCH ×2 (09:33→20:39)
[2016-12-03] MEDS: SODIUM CHLORIDE 0.9% FLUSH 10 ML FLUSH IV FLUSH SCH ×2 (09:33→20:38)
[2016-12-03] MEDS: CHLORHEXIDINE 0.12% (ORAL KIT) 15 ML CUP MT SCH ×2 (09:34→20:38)
--- NOTE | 2016-12-03 14:11 | HHI.PR ---
Subjective Remarks 70 YOWF with VDRF,Pneumonia, ? Aspiration Bronchial wash Sq cell ca Mod amount of trach secretions. No fever Sedated with Diprivan Lot of oral secretions Objective Vital Signs Vital Signs Date Time Temp Pulse Resp B/P (MAP) Pulse Ox O2 Delivery O2 Flow Rate FiO2 12/03/16 13:23 100 40 12/03/16 12:09 100 40 12/03/16 12:00 97.6 120 34 169/70 (103) 100 12/03/16 12:00 120 12/03/16 12:00 40 12/03/16 10:00 111 12/03/16 09:10 100 40 12/03/16 08:00 40 12/03/16 08:00 103 12/03/16 08:00 99.9 103 26 153/67 (95) 100 12/03/16 04:58 100 40 12/03/16 04:00 98.6 104 42 167/72 (103) 100 12/03/16 04:00 40 12/03/16 01:22 100 40 12/03/16 00:00 98.7 101 14 170/74 (106) 100 12/03/16 00:00 40 12/02/16 21:52 100 40 12/02/16 20:00 99.0 87 12 164/69 (100) 100 12/02/16 20:00 40 12/02/16 18:00 96 12/02/16 16:00 79 12/02/16 16:00 99.7 79 12 157/71 (99) 100 12/02/16 16:00 40 I/O 12/02/16 12/02/16 12/02/16 12/03/16 12/03/16 12/03/16 07:00 15:00 23:00 07:00 15:00 23:00 Intake Total 750 ml 805 ml 753 ml Output Total 575 ml 600 ml 900 ml Balance 175 ml 205 ml -147 ml Intake Oral 0 ml IV Total 100 ml 348 ml 200 ml Tube Feeding 450 ml 457 ml 493 ml Tube Irrigant 200 ml Other 60 ml Output Urine Total 575 ml 600 ml 900 ml # Bowel Movements 2 1 1 Result Diagram: 12/02/16 0418 12/02/16417 Objective Remarks GENERAL: MBMN WF, intubated, sedated SKIN: Warm and dry. HEAD: Normocephalic. EYES: No scleral icterus. No injection or drainage. NECK: Supple, trachea midline. No JVD or lymphadenopathy. CARDIOVASCULAR: Regular rate and rhythm without murmurs, gallops, or rubs. RESPIRATORY: Breath sounds equal bilaterally. No accessory muscle use. GASTROINTESTINAL: Abdomen soft, non-tender, nondistended. MUSCULOSKELETAL: No cyanosis, or edema. BACK: Nontender without obvious deformity. No CVA tenderness. A/P Assessment and Plan VDRF Pneumonia Aspiration DM Dementia Ventriculomegaly Squamous cell ca PLAN: Vent Support -AC 12, Fi02 40% Cont Abx Aerosol nebs SQ Heparin Code status DNR Prognosis poor Add Luis Ching MD Dec 03, 2016 14:11
[2016-12-03] MEDS: HYOSCYAMINE 0.125 MG TAB PO SCH ×2 (15:10→20:38)
[2016-12-03] MEDS: RESP: ALBUTEROL 2.5 MG/3 ML NEB (PRN) NEB (20:15)
[2016-12-04] VITALS (15 sets, daily range): BP systolic 113–168; BP diastolic 68–86; PULSE 106–130; RESP 12–13; TEMP 97.9–102.1; O2SAT 94–100
[2016-12-04] MEDS: PROPOFOL 1000 MG/100 ML INJ 100 ML IV PRN ×3 (00:08→18:40)
[2016-12-04] MEDS: HYOSCYAMINE 0.125 MG TAB PO SCH ×6 (00:11→22:40)
[2016-12-04] MEDS: HEPARIN SODIUM - SQ 10,000 UNITS/ML VIAL SQ SCH ×4 (00:11→22:42)
[2016-12-04] MEDS: INSULIN NovoLIN REGULAR SUPPLEMENTAL SCALE SQ SCH ×4 (02:00→20:00)
[2016-12-04] MEDS: RESP: ALBUTEROL 2.5 MG/3 ML NEB (PRN) NEB (03:47)
[2016-12-04] MEDS: CHLORHEXIDINE GLUCONATE 2 % 1 PACK (2 CLOTHS) TOP SCH (04:00)
[2016-12-04] MEDS: levETIRAcetam INJ 500 MG in SODIUM CHLORIDE 0.9% INJ 100 ML IV SCH ×2 (04:16→15:59)
[2016-12-04] MEDS: METOPROLOL TARTRATE 50 MG TAB PO SCH ×3 (04:17→22:42)
[2016-12-04] MEDS: ARTIFICIAL TEARS OPTH SOLN 15 ML BTL EACH EYE SCH ×3 (04:17→22:00)
[2016-12-04] MEDS: cloNIDine HCL 0.3 MG TAB PO SCH ×3 (04:17→22:42)
--- NOTE | 2016-12-04 06:26 | HHI.CCPN ---
Subjective Remarks/Hospital Course HPI 70-year-old detention resident with a medical history significant for dementia, diabetes mellitus, hyperlipidemia, reactive airway disease who was found to have altered mental status at the detention for which EMS was called. Patient was noted to have O2 sats in the 70s. She was very apneic with her head slumped down. Paramedics report of having to hold her head up to have her breathe with the nebulizer treatment in place. Patient was given Solu- Medrol 125 mg IV and 4 nebulizer treatments prior to arrival in the ER for documentation. On arrival in the ER patient was extremely lethargic however was reportedly able to answer some questions. Patient was felt not to be able to protect her airway as well as very hypoxic and hence was intubated by ER physician and placed on mechanical ventilation. Chest x-ray in the ER showed bilateral infiltrates and possible cavitary lesion. She was accepted for admission by critical care medicine service. CT chest was ordered by ER physician. When I evaluated the patient in the ER she was sedated with propofol , orally intubated on mechanical ventilation. History was obtained by reviewing records and discussion with ER physician. 10/29 Patient is sedated with Diprivan and intubated. Afebrile. 10/30 Patient remains sedated and intubated. T:99.7 last night. 10/31: Intubated sedated. CT reviewed and discussed with Dr. Madison. Will consider Bronch. Also check thyroid US and possible biopsy. Check thyroid studies. Also consult palliative care as patient has underlying dementia with NPH and possible malignancy. 11/01: Tmax 100.3. Plan for bronchoscopy at 3:00 today. Noted thyroid masses chronic/since 2011. Tolerating tube feeding. Positive BM. 11/02: Tmax 100.1. Status post bronchoscopy yesterday with removal of mucous plugging. Tolerating tube feeds. Positive BM. Weaning propofol sedation today. 11/03: Tmax 100.6. Noted elevated leukocytosis. Weaning sedation. Positive BM. Tolerate tube feeding. 11/04: Afebrile. UA negative. C. difficile pending. 4 bowel movement overnight. Tolerating tube feeding. No new issues. 11/05 Patient is sedated with Diprivan and intubated. T:100.7. Given Labetalol 10mg IV x3 for hypertension overnight. 11/06 No events overnight. Off sedation. T: 101.5 last night. 11/07: Tmax 102. Currently 100.6. Continues off sedation. Eyes are open to voice but not falling commands. Noted MRI brain unchanged. MRI C-spine revealed no cord compression or cord abnormality's. Severe C5/6 right foraminal narrowing 11/08: Remains intubated sedated, intermittently opens eyes. Per palliative care , acid dumper requesting letter of certification from treatment team. Prior to making a decision to withdraw from life support, the acid dumper is requesting a letter from the covering physicians certifying that she is hospice appropriate and palliative rather than aggressive treatment is appropriate. Dr. Madison thinks hospice is appropriate but also recommends Oncology input. I have consulted medical oncology 11/09 Patient remains intubated, on no sedation, Tmax 103.1 gets tachypneic with CPAP trials 11/10 Patient is intubated had T:100.3 last night. Doesn't follow commands. 11/11 No events overnight. Placed on Precedex drip yesterday to facilitate with weaning trials. T: 99.7. Awake looking around with her eyes but does not following commands. 11/12 Patient remains intubated. On Precedex drip. Did not tolerate CPAP trials yesterday. 11/13 No events overnight. Intubated doesn't tolerate CPAP trials. T:100.5 last night. 11/14 Patient remains intubated. Off sedation. T;100.1 11/15 No events overnight. Intubated. T:100.8 last night. 11/16: Tmax 99.5. Currently resting in bed in no acute distress. Eyes are open but does not follow commands. Off all sedation. Tolerating tube feeding. Positive BM. 11/17: Tmax 100.1. Resting blood eyes open not falling commands. Off all sedation. Tolerating tube feeds. Intermittently hypertensive. 11/18: Tmax 99.5. Moving head back and forth and following commands weakly with bilateral upper extremities. Tolerating tube feeds. Off all sedation 7 days. 11/19: Asynchronous with the vent. Now on propofol. Probable withdrawal of care today according to palliative care. Waiting to hear back from guardian 11/20: Waiting for acid dumper's order to permit withdrawal from ventilator, and comfort measures. At this time patient is sedated with propofol. Fentanyl as needed 11/21: Sedated with propofol appears comfortable. Bilateral course breath sounds. IV Bumex and DuoNeb ordered 11/22: Patient remains on the vent breathing comfortably on propofol. Bilateral wheezing has improved. No further decision had been made regarding date of withdrawal. 11/23: No change in condition, comfortable on propofol. Patient is synchronous with the ventilator 11/24: Wheezing, tachypneic on vent. DuoNeb will be administered by respiratory 11/25: No recent labs or chest x-ray done. Wheezing improved 11/26: No changes in her mental status or clinical condition. Synchronous with the vent 11/27: No change in clinical condition. Per palliative care notes, Notice of Hearing to take place on November 29, to discuss Emergency Petition to Authorize Removal of Life Support. 11/28: No change in condition, hearing scheduled for tomorrow. Patient appears comfortable 11/29: Hearing is today. No changes in clinical condition. Remains terminally ill with multiple terminal conditions 11/30: Request for withdrawal of life support denied yesterday by the acid dumper. No further updates or changes. See palliative care notes for details 12/01: No new updates, Patient appears comfortable. 12/02; Remains intubated, sedated for comfort. No evidence of meaningful recovery, continues to be terminally ill. 12/03: no changes or improvements. terminally ill without hope of recovery. Subjective 12/04: no improvements. poor prognosis. awaiting acid dumper hearing. Objective Vital Signs Date Time Temp Pulse Resp B/P (MAP) Pulse Ox O2 Delivery O2 Flow Rate FiO2 12/04/16 04:18 100 40 12/04/16 04:00 97.9 117 12 162/70 (100) Intake and Output 12/04/16 12/04/16 12/05/16 08:00 16:00 00:00 Intake Total 85 ml Balance 85 ml Result Diagram: 12/02/16 0418 12/02/16 0418 Imaging Last Impressions Chest X-Ray 11/18/16 0600 Signed Impressions: Service Date/Time: Friday, November 18, 2016 04:04 - CONCLUSION: Some improvement involving the diffuse bilateral pulmonary infiltrates. Eric Levine Jr., MD Cervical Spine MRI 11/06/16 0000 Signed Impressions: Service Date/Time: Sunday, November 06, 2016 21:36 - CONCLUSION: 1. Multilevel degenerative changes of the cervical spine as above, especially C5/ C6 and C6/C7. 2. Mild to moderate spinal stenosis and severe right foraminal stenosis at C5/C6. 3. Mild spinal stenosis and moderate right foraminal stenosis at C6/C7. 4. No cord compression or cord signal abnormality. 5. No fracture or subluxation. 6. Large nodule of the left lobe of the thyroid gland. There are also upper limits of normal bilateral cervical lymph nodes. Keshav Burks MD Brain MRI 11/06/16 0000 Signed Impressions: Service Date/Time: Sunday, November 06, 2016 21:36 - CONCLUSION: 1. No change or acute abnormality demonstrated. 2. Atrophy, ventriculomegaly and chronic white matter changes are again noted. Keshav Burks MD Thyroid Ultrasound 10/31/16 0000 Signed Impressions: Service Date/Time: Monday, October 31, 2016 11:47 - CONCLUSION: Large complex mass right lobe of the thyroid. Minimally increased in size since Jacoby Torre MD FACR Abdomen X-Ray 10/29/16 0000 Signed Impressions: Service Date/Time: Saturday, October 29, 2016 15:32 - CONCLUSION: Negative for radiopaque foreign bodies. Jacoby Torre MD FACR Chest CT 10/28/16 1814 Signed Impressions: Service Date/Time: Friday, October 28, 2016 18:28 - CONCLUSION: 1. Abnormality on chest radiograph corresponds to a 3.4 x 3.5 cm central right hilar mass/adenopathy with associated postobstructive airspace consolidation in the inferior right upper lobe. There are at least 2 additional pulmonary nodules measuring 13 x 8 mm in the anterior right middle lobe and 8 x 8 mm in the anterior right upper lobe near the apex. 2. 3.9 x 4.3 cm heterogeneous nodule in the right thyroid gland. No significant regional cervical adenopathy. 3. Patchy bilateral lower lobe air space consolidation and diffuse ground glass opacities. Differential considerations include ARDS versus infection versus aspiration. 1. Tyler Selby MD Head CT 10/28/16 0000 Signed Impressions: Service Date/Time: Friday, October 28, 2016 20:44 - CONCLUSION: 1. No bleed or evidence of acute infarction. 2. Atrophy and chronic white matter changes. 3. Moderate ventriculomegaly, beyond that expected for the degree of atrophy. Normal pressure hydrocephalus would be in the differential. Keshav Burks MD Objective Remarks GENERAL: 71-year-old female, critically ill orotracheally intubated, sedated SKIN: Warm and dry. HEENT: Atraumatic. Normocephalic. Orotracheally intubated NECK: Trachea midline. No JVD. Right-sided thyromegaly/palpable mass noted CARDIOVASCULAR: RR. RESPIRATORY: unlabored. equal chest rise.on full support. GASTROINTESTINAL: Abdomen soft, non-tender, nondistended. MUSCULOSKELETAL: Extremities bilateral trace lower extremity edema. No obvious deformities. NEUROLOGICAL: sedated. Intermittently moves extremities, no purposeful movements noted A/P Assessment and Plan Neuro/Psych: Depression/anxiety Toxic metabolic encephalopathy Ventriculomegaly History of dementia On propofol for vent synchrony, monitor neuro status. As needed fentanyl 50 every 2 hours when necessary pain EEG 11/06 triphasic sway/diffuse sharp waves likely moderate encephalopathy cannot rule out proclivity of seizure Neuro Dr. Sampson. CT brain: Moderate ventriculomegaly, beyond that expected for the degree of atrophy. MRI confirms. Neurosurgery Dr. Hernandez No intervention Holding home medications clonazepam 0.5 mg twice a day and quetiapine 25 mg at night On levetiracetam 500 mg IV twice a day per neurology's EEG above CV: Hypertension Dyslipidemia On Lopressor 50mg Q8, amlodipine 10mg daily, Clonidine 0.3mg Q8 As needed hydralazine and labetalol and Nitropaste for hypertension Holding atorvastatin 40 mg by mouth daily for dyslipidemia. Qshift vitals. Pulm Acute hypoxemic respiratory failure possibly secondary to post obstructive pneumonia Squamous cell carcinoma of Lung PRV 12/500/0//. Ventilator bundle. No further weaning trials. Request for ventilatory withdrawal and comfort measures denied by Computer Hardware Designer 11/29/16 , new hearing date Monday 12/04 Albuterol/ipratropium aerosols every 6 hours with albuterol aerosols every [address] chest reviewed revealed 3.4 x 2.5 right hilar mass with post discharge pneumonia in the right upper lobe. Right middle lobe mass. Dr. Madison, s/p bronch with BAL 11/01. Cytology positive (squamous cell carcinoma ) Renal/: Hypernatremia - resolved Monitor renal function, I/O's, electrolytes replacement per protocol. GI/liver: Mild protein calorie malnutrition Continue with Glucerna 1.5 at 40 cc an hour On famotidine 20mg BID for GI prophylaxis Docusate sodium 100 mg twice a day for bowel regimen ID: Escherichia coli UTI Postobstructive pneumonia Abx per ID (completed fluconazole, aztreonam, meropenem) monitor for signs of infections ( Fever, WBC). Sputum cx 11/09: Pseudomonas, Staph Aureus Follow up on cultures and bronchoscopy 11/01- Yeast species BC 11/04: NGTD Blood cultures 2 - 11/06 - NGTD Sputum 11/06 ESBL E Coli, PSAE, Staph. Strep pneumonia urinary Ag negative. ID has followed Urine cx 10/28: E COLI Heme: Leukocytosis Normocytic anemia SCC lung Patient has hilar mass with pulmonary nodules, also thyroid mass. Seen by Oncology-Dr. Xavier patient is not candidate for surgery, chemo radiation given poor performance status, hospice was recommended. Endocrine: Diabetes mellitus Right thyroid mass 6.8 cm/chronic Detemir 20 units Q12 On SSI medium scale Novolin R for glycemic control. Patient is on insulin glargine at home Prophylaxis: Famotidine 20 mg twice a day via OG tube, SCDs/subcutaneous heparin Level 1 follow-up Notice of Hearing took place November 29. Request for ventilatory withdrawal and comfort measures denied by Computer Hardware Designer. Next hearing Saturday, Dr. Stephenson will represent medical team Jamie Gong MD Dec 04, 2016 06:26
[2016-12-04] MEDS: CHLORHEXIDINE 0.12% (ORAL KIT) 15 ML CUP MT SCH ×2 (08:00→22:39)
[2016-12-04] MEDS: INSULIN DETEMIR 100 UNITS/ML VIAL SQ SCH ×2 (09:00→22:41)
[2016-12-04] MEDS: MUPIROCIN 2% OINT 1 APPLIC/GM SYR EACH NARE SCH ×2 (09:40→22:40)
[2016-12-04] MEDS: SODIUM CHLORIDE 0.9% FLUSH 10 ML FLUSH IV FLUSH SCH ×2 (09:41→21:00)
[2016-12-04] MEDS: FAMOTIDINE 20 MG TAB PO SCH ×2 (09:41→22:41)
[2016-12-04] MEDS: DOCUSATE SODIUM 100 MG/10 ML UDC PO SCH ×2 (09:41→21:00)
[2016-12-04] MEDS: LACTOBACILLUS ACIDOPHILUS TAB PO SCH ×3 (09:41→15:59)
[2016-12-04] MEDS: ACETAMINOPHEN 325 MG TAB PO PRN (09:55)
[2016-12-04] MEDS: LORazepam 2 MG/ML VIAL IV PRN (16:13)
--- NOTE | 2016-12-04 17:49 | HHI.PR ---
Subjective Remarks 70 YOWF with VDRF,Pneumonia, ? Aspiration Bronchial wash Sq cell ca Mod amount of trach secretions. No fever Sedated with Diprivan Lot of oral secretions Had fever today, required Ice packs Objective Vital Signs Vital Signs Date Time Temp Pulse Resp B/P (MAP) Pulse Ox O2 Delivery O2 Flow Rate FiO2 12/04/16 17:36 99 40 12/04/16 16:00 40 12/04/16 16:00 130 12/04/16 14:00 126 12/04/16 12:00 126 12/04/16 12:00 40 12/04/16 11:32 94 40 12/04/16 10:55 20 12/04/16 10:00 112 12/04/16 09:00 100 40 12/04/16 08:00 102.1 106 13 149/68 (95) 98 12/04/16 08:00 40 12/04/16 08:00 106 12/04/16 04:18 100 40 12/04/16 04:00 97.9 117 12 162/70 (100) 100 12/04/16 04:00 40 12/04/16 00:00 98.0 111 12 168/74 (105) 100 12/04/16 00:00 40 12/03/16 23:54 100 40 12/03/16 20:15 100 40 12/03/16 20:00 40 12/03/16 20:00 98.7 106 17 160/69 (99) 100 12/03/16 18:00 100 I/O 12/03/16 12/03/16 12/03/16 12/04/16 12/04/16 12/04/16 07:00 15:00 23:00 07:00 15:00 23:00 Intake Total 753 ml 887 ml 145 ml 59 ml 100 ml Output Total 900 ml 850 ml 450 ml Balance -147 ml 37 ml -305 ml 59 ml 100 ml Intake Oral 0 ml 0 ml IV Total 200 ml 230 ml 85 ml 59 ml 100 ml Tube Feeding 493 ml 477 ml Tube Irrigant 180 ml Other 60 ml 60 ml Output Urine Total 900 ml 850 ml 450 ml # Bowel Movements 1 0 0 Result Diagram: 12/02/16 0418 12/02/16417 Objective Remarks GENERAL: MBMN WF, intubated, sedated SKIN: Warm and dry. HEAD: Normocephalic. EYES: No scleral icterus. No injection or drainage. NECK: Supple, trachea midline. No JVD or lymphadenopathy. CARDIOVASCULAR: Regular rate and rhythm without murmurs, gallops, or rubs. RESPIRATORY: Breath sounds equal bilaterally. No accessory muscle use. GASTROINTESTINAL: Abdomen soft, non-tender, nondistended. MUSCULOSKELETAL: No cyanosis, or edema. BACK: Nontender without obvious deformity. No CVA tenderness. A/P Assessment and Plan VDRF Pneumonia Aspiration DM Dementia Ventriculomegaly Squamous cell ca PLAN: Vent Support -AC 12, Fi02 40% Cont Abx Aerosol nebs SQ Heparin Code status DNR Prognosis poor Levsin q 4 hrs prn Luis Madison MD Dec 04, 2016 17:49
[2016-12-04] MEDS: LABETALOL HCL 100 MG/20 ML VIAL IV PUSH PRN (22:57)
[2016-12-05] VITALS (28 sets, daily range): BP systolic 129–163; BP diastolic 57–70; PULSE 82–107; RESP 12–49; TEMP 97.8–100.4; O2SAT 93–100
[2016-12-05] MEDS: INSULIN NovoLIN REGULAR SUPPLEMENTAL SCALE SQ SCH ×4 (01:21→20:00)
[2016-12-05] MEDS: CHLORHEXIDINE GLUCONATE 2 % 1 PACK (2 CLOTHS) TOP SCH (04:00)
[2016-12-05] MEDS: HYOSCYAMINE 0.125 MG TAB PO SCH ×6 (04:03→21:19)
[2016-12-05] MEDS: METOPROLOL TARTRATE 50 MG TAB PO SCH ×3 (04:03→21:19)
[2016-12-05] MEDS: levETIRAcetam INJ 500 MG in SODIUM CHLORIDE 0.9% INJ 100 ML IV SCH ×2 (04:03→15:17)
[2016-12-05] MEDS: cloNIDine HCL 0.3 MG TAB PO SCH ×3 (04:04→21:20)
[2016-12-05] MEDS: ARTIFICIAL TEARS OPTH SOLN 15 ML BTL EACH EYE SCH ×3 (04:05→21:19)
[2016-12-05] MEDS: PROPOFOL 1000 MG/100 ML INJ 100 ML IV PRN ×3 (04:06→23:20)
[2016-12-05] MEDS: CHLORHEXIDINE 0.12% (ORAL KIT) 15 ML CUP MT SCH (08:36)
[2016-12-05] MEDS: FAMOTIDINE 20 MG TAB PO SCH ×2 (08:37→21:00)
[2016-12-05] MEDS: DOCUSATE SODIUM 100 MG/10 ML UDC PO SCH ×2 (08:37→21:19)
[2016-12-05] MEDS: LACTOBACILLUS ACIDOPHILUS TAB PO SCH ×3 (08:37→15:20)
[2016-12-05] MEDS: HEPARIN SODIUM - SQ 10,000 UNITS/ML VIAL SQ SCH ×2 (08:38→15:18)
[2016-12-05] MEDS: INSULIN DETEMIR 100 UNITS/ML VIAL SQ SCH ×2 (08:38→21:18)
[2016-12-05] MEDS: MUPIROCIN 2% OINT 1 APPLIC/GM SYR EACH NARE SCH ×2 (08:39→21:19)
[2016-12-05] MEDS: SODIUM CHLORIDE 0.9% FLUSH 10 ML FLUSH IV FLUSH SCH (08:39)
--- NOTE | 2016-12-05 14:20 | HHI.CCPN ---
Subjective Remarks/Hospital Course HPI 70-year-old halfway resident with a medical history significant for dementia, diabetes mellitus, hyperlipidemia, reactive airway disease who was found to have altered mental status at the halfway for which EMS was called. Patient was noted to have O2 sats in the 70s. She was very apneic with her head slumped down. Paramedics report of having to hold her head up to have her breathe with the nebulizer treatment in place. Patient was given Solu- Medrol 125 mg IV and 4 nebulizer treatments prior to arrival in the ER for documentation. On arrival in the ER patient was extremely lethargic however was reportedly able to answer some questions. Patient was felt not to be able to protect her airway as well as very hypoxic and hence was intubated by ER physician and placed on mechanical ventilation. Chest x-ray in the ER showed bilateral infiltrates and possible cavitary lesion. She was accepted for admission by critical care medicine service. CT chest was ordered by ER physician. When I evaluated the patient in the ER she was sedated with propofol , orally intubated on mechanical ventilation. History was obtained by reviewing records and discussion with ER physician. 10/29 Patient is sedated with Diprivan and intubated. Afebrile. 10/30 Patient remains sedated and intubated. T:99.7 last night. 10/31: Intubated sedated. CT reviewed and discussed with Dr. Madison. Will consider Bronch. Also check thyroid US and possible biopsy. Check thyroid studies. Also consult palliative care as patient has underlying dementia with NPH and possible malignancy. 11/01: Tmax 100.3. Plan for bronchoscopy at 3:00 today. Noted thyroid masses chronic/since 2011. Tolerating tube feeding. Positive BM. 11/02: Tmax 100.1. Status post bronchoscopy yesterday with removal of mucous plugging. Tolerating tube feeds. Positive BM. Weaning propofol sedation today. 11/03: Tmax 100.6. Noted elevated leukocytosis. Weaning sedation. Positive BM. Tolerate tube feeding. 11/04: Afebrile. UA negative. C. difficile pending. 4 bowel movement overnight. Tolerating tube feeding. No new issues. 11/05 Patient is sedated with Diprivan and intubated. T:100.7. Given Labetalol 10mg IV x3 for hypertension overnight. 11/06 No events overnight. Off sedation. T: 101.5 last night. 11/07: Tmax 102. Currently 100.6. Continues off sedation. Eyes are open to voice but not falling commands. Noted MRI brain unchanged. MRI C-spine revealed no cord compression or cord abnormality's. Severe C5/6 right foraminal narrowing 11/08: Remains intubated sedated, intermittently opens eyes. Per palliative care , tile sprayer requesting letter of certification from treatment team. Prior to making a decision to withdraw from life support, the tile sprayer is requesting a letter from the covering physicians certifying that she is hospice appropriate and palliative rather than aggressive treatment is appropriate. Dr. Madison thinks hospice is appropriate but also recommends Oncology input. I have consulted medical oncology 11/09 Patient remains intubated, on no sedation, Tmax 103.1 gets tachypneic with CPAP trials 11/10 Patient is intubated had T:100.3 last night. Doesn't follow commands. 11/11 No events overnight. Placed on Precedex drip yesterday to facilitate with weaning trials. T: 99.7. Awake looking around with her eyes but does not following commands. 11/12 Patient remains intubated. On Precedex drip. Did not tolerate CPAP trials yesterday. 11/13 No events overnight. Intubated doesn't tolerate CPAP trials. T:100.5 last night. 11/14 Patient remains intubated. Off sedation. T;100.1 11/15 No events overnight. Intubated. T:100.8 last night. 11/16: Tmax 99.5. Currently resting in bed in no acute distress. Eyes are open but does not follow commands. Off all sedation. Tolerating tube feeding. Positive BM. 11/17: Tmax 100.1. Resting blood eyes open not falling commands. Off all sedation. Tolerating tube feeds. Intermittently hypertensive. 11/18: Tmax 99.5. Moving head back and forth and following commands weakly with bilateral upper extremities. Tolerating tube feeds. Off all sedation 7 days. 11/19: Asynchronous with the vent. Now on propofol. Probable withdrawal of care today according to palliative care. Waiting to hear back from guardian 11/20: Waiting for tile sprayer's order to permit withdrawal from ventilator, and comfort measures. At this time patient is sedated with propofol. Fentanyl as needed 11/21: Sedated with propofol appears comfortable. Bilateral course breath sounds. IV Bumex and DuoNeb ordered 11/22: Patient remains on the vent breathing comfortably on propofol. Bilateral wheezing has improved. No further decision had been made regarding date of withdrawal. 11/23: No change in condition, comfortable on propofol. Patient is synchronous with the ventilator 11/24: Wheezing, tachypneic on vent. DuoNeb will be administered by respiratory 11/25: No recent labs or chest x-ray done. Wheezing improved 11/26: No changes in her mental status or clinical condition. Synchronous with the vent 11/27: No change in clinical condition. Per palliative care notes, Notice of Hearing to take place on November 29, to discuss Emergency Petition to Authorize Removal of Life Support. 11/28: No change in condition, hearing scheduled for tomorrow. Patient appears comfortable 11/29: Hearing is today. No changes in clinical condition. Remains terminally ill with multiple terminal conditions 11/30: Request for withdrawal of life support denied yesterday by the tile sprayer. No further updates or changes. See palliative care notes for details 12/01: No new updates, Patient appears comfortable. 12/02; Remains intubated, sedated for comfort. No evidence of meaningful recovery, continues to be terminally ill. 12/03: no changes or improvements. terminally ill without hope of recovery. 12/04: no improvements. poor prognosis. awaiting tile sprayer hearing. Subjective 12/05: No change in condition. Unresponsive on the ventilator. Objective Vital Signs Date Time Temp Pulse Resp B/P (MAP) Pulse Ox O2 Delivery O2 Flow Rate FiO2 12/05/16 12:00 98.4 107 20 150/67 (94) 94 12/05/16 12:00 40 Intake and Output 12/05/16 12/05/16 12/06/16 08:00 16:00 00:00 Intake Total 722 ml Output Total 400 ml Balance 322 ml Result Diagram: 12/02/16 0418 12/02/16 0418 Imaging Last Impressions Chest X-Ray 11/18/16 0600 Signed Impressions: Service Date/Time: Friday, November 18, 2016 04:04 - CONCLUSION: Some improvement involving the diffuse bilateral pulmonary infiltrates. Eric Levine Jr., MD Cervical Spine MRI 11/06/16 0000 Signed Impressions: Service Date/Time: Sunday, November 06, 2016 21:36 - CONCLUSION: 1. Multilevel degenerative changes of the cervical spine as above, especially C5/ C6 and C6/C7. 2. Mild to moderate spinal stenosis and severe right foraminal stenosis at C5/C6. 3. Mild spinal stenosis and moderate right foraminal stenosis at C6/C7. 4. No cord compression or cord signal abnormality. 5. No fracture or subluxation. 6. Large nodule of the left lobe of the thyroid gland. There are also upper limits of normal bilateral cervical lymph nodes. Keshav Burks MD Brain MRI 11/06/16 0000 Signed Impressions: Service Date/Time: Sunday, November 06, 2016 21:36 - CONCLUSION: 1. No change or acute abnormality demonstrated. 2. Atrophy, ventriculomegaly and chronic white matter changes are again noted. Keshav Burks MD Thyroid Ultrasound 10/31/16 0000 Signed Impressions: Service Date/Time: Monday, October 31, 2016 11:47 - CONCLUSION: Large complex mass right lobe of the thyroid. Minimally increased in size since Jacoby Torre MD FACR Abdomen X-Ray 10/29/16 0000 Signed Impressions: Service Date/Time: Saturday, October 29, 2016 15:32 - CONCLUSION: Negative for radiopaque foreign bodies. Jacoby Torre MD FACR Chest CT 10/28/161813 Signed Impressions: Service Date/Time: Friday, October 28, 2016 18:28 - CONCLUSION: 1. Abnormality on chest radiograph corresponds to a 3.4 x 3.5 cm central right hilar mass/adenopathy with associated postobstructive airspace consolidation in the inferior right upper lobe. There are at least 2 additional pulmonary nodules measuring 13 x 8 mm in the anterior right middle lobe and 8 x 8 mm in the anterior right upper lobe near the apex. 2. 3.9 x 4.3 cm heterogeneous nodule in the right thyroid gland. No significant regional cervical adenopathy. 3. Patchy bilateral lower lobe air space consolidation and diffuse ground glass opacities. Differential considerations include ARDS versus infection versus aspiration. 1. Tyler Selby MD Head CT 10/28/16 0000 Signed Impressions: Service Date/Time: Friday, October 28, 2016 20:44 - CONCLUSION: 1. No bleed or evidence of acute infarction. 2. Atrophy and chronic white matter changes. 3. Moderate ventriculomegaly, beyond that expected for the degree of atrophy. Normal pressure hydrocephalus would be in the differential. Keshav Burks MD Objective Remarks GENERAL: 71-year-old female, critically ill orotracheally intubated, sedated SKIN: Warm and dry. HEENT: Atraumatic. Normocephalic. Orotracheally intubated NECK: Trachea midline. No JVD. Right-sided thyromegaly/palpable mass noted CARDIOVASCULAR: RR. RESPIRATORY: unlabored. equal chest rise.on full support. GASTROINTESTINAL: Abdomen soft, non-tender, nondistended. MUSCULOSKELETAL: Extremities bilateral trace lower extremity edema. No obvious deformities. NEUROLOGICAL: sedated. Intermittently moves extremities, no purposeful movements noted A/P Assessment and Plan Neuro/Psych: Depression/anxiety Toxic metabolic encephalopathy Ventriculomegaly History of dementia On propofol for vent synchrony, monitor neuro status. As needed fentanyl 50 every 2 hours when necessary pain EEG 11/06 triphasic sway/diffuse sharp waves likely moderate encephalopathy cannot rule out proclivity of seizure Neuro Dr. Sampson. CT brain: Moderate ventriculomegaly, beyond that expected for the degree of atrophy. MRI confirms. Neurosurgery Dr. Hernandez No intervention Holding home medications clonazepam 0.5 mg twice a day and quetiapine 25 mg at night On levetiracetam 500 mg IV twice a day per neurology's EEG above CV: Hypertension Dyslipidemia On Lopressor 50mg Q8, amlodipine 10mg daily, Clonidine 0.3mg Q8 As needed hydralazine and labetalol and Nitropaste for hypertension Holding atorvastatin 40 mg by mouth daily for dyslipidemia. Qshift vitals. Pulm Acute hypoxemic respiratory failure possibly secondary to post obstructive pneumonia Squamous cell carcinoma of Lung PRVC 12/500/0//. Ventilator bundle. No further weaning trials. Request for ventilatory withdrawal and comfort measures denied by [employer] 11/29/16 , new hearing date Monday 12/04 Albuterol/ipratropium aerosols every 6 hours with albuterol aerosols every [address] chest reviewed revealed 3.4 x 2.5 right hilar mass with post discharge pneumonia in the right upper lobe. Right middle lobe mass. Dr. Madison, s/p bronch with BAL 11/01. Cytology positive (squamous cell carcinoma ) Renal/: Hypernatremia - resolved Monitor renal function, I/O's, electrolytes replacement per protocol. GI/liver: Mild protein calorie malnutrition Continue with Glucerna 1.5 at 40 cc an hour On famotidine 20mg BID for GI prophylaxis Docusate sodium 100 mg twice a day for bowel regimen ID: Escherichia coli UTI Postobstructive pneumonia Started on levofloxacin 750 mg IV daily Abx per ID (completed fluconazole, aztreonam, meropenem) monitor for signs of infections ( Fever, WBC). Sputum - 12/02 - Stenotrophomonas/Pseudomonas Urine - 12/02 - gram-negative tracy Blood cultures - 12/02 - no growth Sputum cx 11/09: Pseudomonas, Staph Aureus Follow up on cultures and bronchoscopy 11/01- Yeast species BC 11/04: NGTD Blood cultures - 11/06 - NGTD Sputum 11/06 ESBL E Coli, PSAE, Staph. Strep pneumonia urinary Ag negative. ID has followed Urine cx 10/28: E COLI Heme: Leukocytosis Normocytic anemia SCC lung Patient has hilar mass with pulmonary nodules, also thyroid mass. Seen by Oncology-Dr. Xavier patient is not candidate for surgery, chemo radiation given poor performance status, hospice was recommended. Endocrine: Diabetes mellitus Right thyroid mass 6.8 cm/chronic Detemir 25 units Q12 On SSI medium scale Novolin R for glycemic control. Patient is on insulin glargine at home Prophylaxis: Famotidine 20 mg twice a day via OG tube, SCDs/subcutaneous heparin Level 1 follow-up Patient lacks the capacity to make medical decisions. The patient is terminal. The patient is appropriate withdrawal of care/palliation Niraj Malloy MD Dec 05, 2016 14:20
[2016-12-05] MEDS: RESP: ALBUTEROL 2.5 MG/IPRATROPIUM 0.5 MG NEB (SCH) NEB ×2 (14:59→21:54)
[2016-12-05] MEDS: LEVOFLOXACIN 750 MG PREMIX INJ 150 ML IV SCH (15:19)
--- NOTE | 2016-12-05 19:17 | HHI.PR ---
Subjective Remarks 70 YOWF with VDRF,Pneumonia, ? Aspiration Bronchial wash Sq cell ca Mod amount of trach secretions. No fever Sedated with Diprivan Objective Vital Signs Vital Signs Date Time Temp Pulse Resp B/P (MAP) Pulse Ox O2 Delivery O2 Flow Rate FiO2 12/05/16 18:00 100 12/05/16 16:00 98.6 94 12 134/62 (86) 99 12/05/16 16:00 40 12/05/16 16:00 94 12/05/16 14:59 100 40 12/05/16 14:00 82 12/05/16 12:00 98.4 107 20 150/67 (94) 94 12/05/16 12:00 107 12/05/16 12:00 40 12/05/16 11:50 97 40 12/05/16 10:01 40 12/05/16 10:00 96 12/05/16 08:24 95 40 12/05/16 08:00 90 12/05/16 08:00 97.8 90 12 129/57 (81) 93 12/05/16 08:00 40 12/05/16 04:14 95 40 12/05/16 04:00 40 12/05/16 00:14 96 40 12/05/16 00:00 40 12/04/16 20:32 100 40 12/04/16 20:00 40 12/04/16 19:45 98.4 114 12 145/84 (104) 100 I/O 12/04/16 12/04/16 12/04/16 12/05/16 12/05/16 12/05/16 07:00 15:00 23:00 07:00 15:00 23:00 Intake Total 145 ml 59 ml 877 ml 722 ml 738 ml Output Total 450 ml 975 ml 400 ml 450 ml Balance -305 ml 59 ml -98 ml 322 ml 288 ml Intake Oral 0 ml 0 ml 0 ml IV Total 85 ml 59 ml 187 ml 200 ml 276 ml Tube Feeding 450 ml 462 ml 462 ml Tube Irrigant 240 ml Other 60 ml 60 ml Output Urine Total 450 ml 975 ml 400 ml 450 ml # Bowel Movements 0 1 1 1 Result Diagram: 12/02/168 12/02/16417 Objective Remarks GENERAL: MBMN WF, intubated, sedated SKIN: Warm and dry. HEAD: Normocephalic. EYES: No scleral icterus. No injection or drainage. NECK: Supple, trachea midline. No JVD or lymphadenopathy. CARDIOVASCULAR: Regular rate and rhythm without murmurs, gallops, or rubs. RESPIRATORY: Breath sounds equal bilaterally. No accessory muscle use. GASTROINTESTINAL: Abdomen soft, non-tender, nondistended. MUSCULOSKELETAL: No cyanosis, or edema. BACK: Nontender without obvious deformity. No CVA tenderness. A/P Assessment and Plan VDRF Pneumonia Aspiration DM Dementia Ventriculomegaly Squamous cell ca PLAN: Vent Support -AC 16, Fi02 40% Cont Abx Aerosol nebs SQ Heparin Code status DNR Prognosis poor Levsin q 4 hrs prn Luis Madison MD Dec 05, 2016 19:17
[2016-12-06] VITALS (46 sets, daily range): BP systolic 121–178; BP diastolic 56–83; PULSE 85–111; RESP 12–60; TEMP 97.8–99.9; O2SAT 93–100
[2016-12-06] MEDS: HYOSCYAMINE 0.125 MG TAB PO SCH ×7 (01:12→23:31)
[2016-12-06] MEDS: HEPARIN SODIUM - SQ 10,000 UNITS/ML VIAL SQ SCH ×4 (01:12→23:31)
[2016-12-06] MEDS: INSULIN NovoLIN REGULAR SUPPLEMENTAL SCALE SQ SCH ×4 (02:00→20:00)
[2016-12-06] MEDS: levETIRAcetam INJ 500 MG in SODIUM CHLORIDE 0.9% INJ 100 ML IV SCH ×2 (03:40→16:02)
[2016-12-06] MEDS: RESP: ALBUTEROL 2.5 MG/IPRATROPIUM 0.5 MG NEB (SCH) NEB ×4 (04:30→21:38)
[2016-12-06] MEDS: cloNIDine HCL 0.3 MG TAB PO SCH ×3 (05:03→21:31)
[2016-12-06] MEDS: METOPROLOL TARTRATE 50 MG TAB PO SCH ×3 (05:03→21:31)
[2016-12-06] MEDS: ARTIFICIAL TEARS OPTH SOLN 15 ML BTL EACH EYE SCH ×3 (05:04→21:32)
[2016-12-06 07:13] LABS: HEMATOCRIT 24.2 % (35.0-46.0); MEAN CELL VOLUME 87.7 FL (80.0-100.0); MEAN CORPUSCULAR HEMOGLOBIN 28.9 PG (27.0-34.0); PLATELET COUNT 400 TH/MM3 (150-450); RED BLOOD COUNT 2.76 MIL/MM3 (4.00-5.30); RED CELL DISTRIBUTION WIDTH 14.8 % (11.6-17.2); WHITE BLOOD COUNT 14.8 TH/MM3 (4.0-11.0)
[2016-12-06 07:32] LABS: REVIEW FLAG FINAL
[2016-12-06 07:53] LABS: BICARBONATE 27.4 MEQ/L (21.0-32.0); MAGNESIUM 2.1 MG/DL (1.5-2.5); POTASSIUM 4.2 MEQ/L (3.5-5.1)
[2016-12-06] MEDS: SODIUM CHLORIDE 0.9% FLUSH 10 ML FLUSH IV FLUSH SCH ×2 (08:53→21:00)
[2016-12-06] MEDS: CHLORHEXIDINE 0.12% (ORAL KIT) 15 ML CUP MT SCH ×2 (08:53→20:20)
[2016-12-06] MEDS: DOCUSATE SODIUM 100 MG/10 ML UDC PO SCH ×2 (08:54→20:21)
[2016-12-06] MEDS: MUPIROCIN 2% OINT 1 APPLIC/GM SYR EACH NARE SCH ×2 (08:54→20:21)
[2016-12-06] MEDS: FAMOTIDINE 20 MG TAB PO SCH ×2 (08:54→20:21)
[2016-12-06] MEDS: LACTOBACILLUS ACIDOPHILUS TAB PO SCH ×3 (08:54→16:04)
[2016-12-06] MEDS: INSULIN DETEMIR 100 UNITS/ML VIAL SQ SCH ×2 (08:58→21:30)
[2016-12-06] MEDS: PROPOFOL 1000 MG/100 ML INJ 100 ML IV PRN ×2 (08:59→17:52)
--- NOTE | 2016-12-06 12:24 | HHI.HCPN ---
Reason for visit a. To assist with evaluation and management of symptoms including: dyspnea, tachypnea, debility. b. To assist medical decision maker(s) with: better understanding of current medical conditions; weighing benefits/burdens of medical treatment options; making medical treatment decisions. . (Mirlande Pak) Subjective/Interval History Patient seen and examined in ICU. Discussed with nurseCheri. Patient remains unresponsive on mechanical vent FiO2 40%, on Diprivan. Respirations are labored. She is tachypneic, rate 50's. Heart rate in the 80's. LBM 12/06/16. WBC 14.8, hemoglobin 8.0, hematocrit 24.2, platelets 400. 12/02/16,sputum culture positive Pseudomonas Aeruginosa and Stenotrophomonas Maltophilia. Urine culture positive Pseudomonas Aeruginosa and ESBL positive E. Coli. On Levaquin. No clinical improvement. Medical team notes indicate patient is terminally ill without hope of recovery. . Family/friend interactions Email received from Russel ANDERSON with recent Emergency Petition to Authorize Removal of Life Support, copy placed on chart and sent to legal. . (Mrilande Pak) Advance Directives Living Will: Never completed Health Care Surrogate: Never completed Durable Power of Embalmer Assistant: Never completed (Mirlande Pak) Advance Directive Specifics Health Care Surrogate(s): Patient has a court appointed guardian, [place] [facility]. . Significant change in goals: NO CODE. Email received from Russel ANDERSON with recent Emergency Petition to Authorize Removal of Life Support, copy placed on chart and sent to legal. Notified nurse. . (Mirlande Pak) Objective Vital Signs Date Time Temp Pulse Resp B/P (MAP) Pulse Ox O2 Delivery O2 Flow Rate FiO2 12/06/16 11:55 98 40 12/06/16 10:00 87 12/06/16 08:25 100 40 12/06/16 08:00 97.8 87 12 140/61 (87) 98 12/06/16 08:00 40 12/06/16 08:00 87 12/06/16 07:15 86 13 98 12/06/16 07:00 87 12 158/64 (95) 98 12/06/16 06:45 87 13 99 12/06/16 06:30 85 12 141/63 (89) 97 12/06/16 06:15 85 12 98 12/06/16 06:00 86 12/06/16 06:00 86 12 139/61 (87) 97 12/06/16 05:45 89 12 99 12/06/16 05:31 91 19 123/56 (78) 100 12/06/16 05:30 92 32 100 12/06/16 05:15 102 53 100 12/06/16 05:00 109 37 153/64 (93) 100 12/06/16 04:45 104 48 98 12/06/16 04:31 98 40 12/06/16 04:30 106 46 96 12/06/16 04:15 110 41 99 12/06/16 04:01 111 35 178/69 (105) 97 12/06/16 04:00 40 12/06/16 04:00 98.9 12/06/16 04:00 109 32 96 12/06/16 04:00 109 12/06/16 03:45 102 52 96 12/06/16 03:30 102 45 159/67 (97) 95 12/06/16 03:15 100 53 97 12/06/16 03:00 100 54 140/83 (102) 96 12/06/16 02:45 97 50 96 12/06/16 02:30 93 54 128/60 (82) 95 12/06/16 02:15 93 48 96 12/06/16 02:00 96 12/06/16 02:00 96 50 138/58 (84) 95 12/06/16 01:45 97 38 95 12/06/16 01:30 97 47 131/62 (85) 93 12/06/16 01:15 96 43 95 12/06/16 01:00 96 40 12/06/16 01:00 91 12 124/58 (80) 95 12/06/16 00:45 97 57 96 12/06/16 00:30 97 59 130/61 (84) 94 12/06/16 00:15 99 60 96 12/06/16 00:00 100 12/06/16 00:00 100 51 94 12/06/16 00:00 40 12/06/16 00:00 99.9 12/05/16 23:45 94 12 95 12/05/16 23:30 91 12 135/60 (85) 93 12/05/16 23:15 90 12 96 12/05/16 23:00 91 12 130/60 (83) 95 12/05/16 22:45 90 49 98 12/05/16 22:30 89 38 148/64 (92) 95 12/05/16 22:15 83 12 96 12/05/16 22:00 87 12/05/16 22:00 87 27 148/63 (91) 96 12/05/16 21:54 97 40 12/05/16 21:45 98 13 96 12/05/16 21:30 100 12 142/63 (89) 95 12/05/16 21:15 93 12 96 12/05/16 21:00 87 13 142/64 (90) 97 12/05/16 20:45 85 12 97 12/05/16 20:30 92 12 163/70 (101) 99 12/05/16 20:15 88 12 97 12/05/16 20:00 100.4 12 12/05/16 20:00 88 12/05/16 20:00 88 13 140/63 (88) 96 12/05/16 20:00 40 12/05/16 18:00 100 12/05/16 16:00 98.6 94 12 134/62 (86) 99 12/05/16 16:00 40 12/05/16 16:00 94 12/05/16 14:59 100 40 12/05/16 14:00 82 Intake & Output 12/06/16 12/06/16 07:00 19:00 Intake Total 790 ml Output Total 400 ml Balance 390 ml IV Total 177 ml Tube Feeding 406 ml TPN/PPN 207 ml Output Urine Total 400 ml Physical Exam CONSTITUTIONAL/GENERAL: This is an elderly, critically, chronically ill patient, on mech vent. TUBES/LINES/DRAINS: PIV, ETT, OGT, Jang catheter, SCDs EYES: eyes closed. CARDIOVASCULAR: Regular rate and rhythm, rate 80's. RESPIRATORY/CHEST: labored respirations on mech vent. Tachypneic, rate 50's. GASTROINTESTINAL: Abdomen soft, round. Bowel sounds present. Tolerating tube feeding. GENITOURINARY: Without palpable bladder distension. Jang catheter in place. MUSCULOSKELETAL: Extremities with 2+ edema to bilateral extremities. No mottling or clubbing. NEUROLOGICAL: Intubated. Eyes closed. Not following commands. Not responding to tactile or verbal stimuli. PSYCHIATRIC: unresponsive. . (Mirlande Pak) Diagnostic Tests Laboratory Laboratory Tests Test 12/06/16 05:15 12/06/16 05:17 White Blood Count 14.8 TH/MM3 (4.0-11.0) Red Blood Count 2.76 MIL/MM3 (4.00-5.30) Hemoglobin 8.0 GM/DL (11.6-15.3) Hematocrit 24.2 % (35.0-46.0) Mean Corpuscular Volume 87.7 FL (80.0-100.0) Mean Corpuscular Hemoglobin 28.9 PG (27.0-34.0) Mean Corpuscular Hemoglobin Concent 33.0 % (32.0-36.0) Red Cell Distribution Width 14.8 % (11.6-17.2) Platelet Count 400 TH/MM3 (150-450) Mean Platelet Volume 9.5 FL (7.0-11.0) Blood Urea Nitrogen 28 MG/DL (7-18) Creatinine 0.61 MG/DL (0.50-1.00) Random Glucose 126 MG/DL (74-106) Calcium Level 9.2 MG/DL (8.5-10.1) Phosphorus Level 4.0 MG/DL (2.5-4.9) Magnesium Level 2.1 MG/DL (1.5-2.5) Sodium Level 141 MEQ/L (136-145) Potassium Level 4.2 MEQ/L (3.5-5.1) Chloride Level 105 MEQ/L (98-107) Carbon Dioxide Level 27.4 MEQ/L (21.0-32.0) Anion Gap 9 MEQ/L (5-15) Estimat Glomerular Filtration Rate 96 ML/MIN (>89) (Mirlande Pak) Result Diagram: 12/06/1615 12/06/1617 Microbiology Microbiology Date/Time Source Procedure Growth Status 12/02/16 18:29 Blood Peripheral Aerobic Blood Culture - Preliminary NO GROWTH IN 4 DAYS Resulted 12/02/16 18:29 Blood Peripheral Anaerobic Blood Culture - Preliminary NO GROWTH IN 4 DAYS Resulted 12/02/16 13:35 Sputum Endotracheal Gram Stain - Final Complete 12/02/16 13:35 Sputum Culture - Final Pseudomonas Aeruginosa Stenotrophomonas Maltophilia Complete 12/02/16 13:35 Urine Catheterized Urine Urine Culture - Preliminary Pseudomonas Aeruginosa Escherichia Coli Esbl Positive Resulted 10/28/16 17:00 Other - Final Complete . Imaging Last Impressions Chest X-Ray 12/02/16 0600 Signed Impressions: Service Date/Time: Friday, December 02, 2016 03:57 - CONCLUSION: 1. The patient is now mildly rotated to the left with increased opacity in both lungs of concern for pneumonia or asymmetric pulmonary edema. 2. There are probable small effusions. Arun Martinez MD Cervical Spine MRI 11/06/16 0000 Signed Impressions: Service Date/Time: Sunday, November 06, 2016 21:36 - CONCLUSION: 1. Multilevel degenerative changes of the cervical spine as above, especially C5/ C6 and C6/C7. 2. Mild to moderate spinal stenosis and severe right foraminal stenosis at C5/C6. 3. Mild spinal stenosis and moderate right foraminal stenosis at C6/C7. 4. No cord compression or cord signal abnormality. 5. No fracture or subluxation. 6. Large nodule of the left lobe of the thyroid gland. There are also upper limits of normal bilateral cervical lymph nodes. Keshav Burks MD Brain MRI 11/06/16 0000 Signed Impressions: Service Date/Time: Sunday, November 06, 2016 21:36 - CONCLUSION: 1. No change or acute abnormality demonstrated. 2. Atrophy, ventriculomegaly and chronic white matter changes are again noted. Keshav Burks MD Thyroid Ultrasound 10/31/16 0000 Signed Impressions: Service Date/Time: Monday, October 31, 2016 11:47 - CONCLUSION: Large complex mass right lobe of the thyroid. Minimally increased in size since Jacoby Torre MD FACR Abdomen X-Ray 10/29/16 0000 Signed Impressions: Service Date/Time: Saturday, October 29, 2016 15:32 - CONCLUSION: Negative for radiopaque foreign bodies. Jacoby Torre MD FACR Chest CT 10/28/16 1814 Signed Impressions: Service Date/Time: Friday, October 28, 2016 18:28 - CONCLUSION: 1. Abnormality on chest radiograph corresponds to a 3.4 x 3.5 cm central right hilar mass/adenopathy with associated postobstructive airspace consolidation in the inferior right upper lobe. There are at least 2 additional pulmonary nodules measuring 13 x 8 mm in the anterior right middle lobe and 8 x 8 mm in the anterior right upper lobe near the apex. 2. 3.9 x 4.3 cm heterogeneous nodule in the right thyroid gland. No significant regional cervical adenopathy. 3. Patchy bilateral lower lobe air space consolidation and diffuse ground glass opacities. Differential considerations include ARDS versus infection versus aspiration. 1. Tyler Selby MD Head CT 10/28/16 0000 Signed Impressions: Service Date/Time: Friday, October 28, 2016 20:44 - CONCLUSION: 1. No bleed or evidence of acute infarction. 2. Atrophy and chronic white matter changes. 3. Moderate ventriculomegaly, beyond that expected for the degree of atrophy. Normal pressure hydrocephalus would be in the differential. Keshav Burks MD . Procedures 11/01/16 Bronchoscopy 10/28/16 Intubated and mechanically ventilated . (Mirlande Pak) Assessment and Plan Disease Oriented Problem List: (1) Acute respiratory failure requiring reintubation (2) Sepsis (3) Pulmonary nodules (4) Normal pressure hydrocephalus (5) Diabetes mellitus (6) Thyroid mass Symptom Scale: (1) Shortness of breath 0-10 Scale: Unable to quantify Comment: Intubated and mechanically ventilated. . (2) Debility 0-10 Scale: Unable to quantify Comment: Resident of a long-term facility, requiring assistance with ADLs. Progressive debility. . Pertinent Non-Medical Issues Psychosocial: Patient is a resident at [facility]. As per prior medical records from 2007, patient has two sons who reside in the area. Per court appointed guardian, one son is and the other son who once served as patient`s DPOA was not fulfilling his duties and the court appointed a guardian for the patient. 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 Spiritual: Unable to obtain, patient is intubated on mechanical ventilation and sedated. Legal: Incapacitated, not going to regain capacity due to end stage dementia. Patient has a court appointed guardian. Ethical issues impacting care: Patient has a court appointed guardian.Patient has a signed DNR in 2010 by her son prior to court appointed guardian. . Important Contacts [place] Lyons/[place] [facility]- Court appointed guardian . Prognosis Ms Sha has had prolonged hospital course, [facility], unable to be weaned due to underlying COPD and lung cancer. Patient has end stage dementia, will not regain capacity. In speaking with oncology, cpr instructor, neurology and palliative care patient is terminal as she is not able to be weaned from vent, not a candidate for treatment of lung cancer. . Code Status: No Code Plan * Legal decision maker: Patient is incapacitated, will not regain capacity. Patient has court appointed COA guardian, [place] Lyons. * NO CODE - per legal recommendation to honor prior [place] DNR order. * Goals: Email received from Russel ANDERSON with recent Emergency Petition to Authorize Removal of Life Support, copy placed on chart and sent to legal. Notified nurse. * Discussed with nurse. * SYMPTOMS: Respiratory distress/ dyspnea - patient remains intubated on mechanical ventilation. Patient failing CPAP trials, gets tachypneic. Sputum culture positive for Escherichia coli, ESBL positive, pseudomonas aeruginosa, methicillin-resistant staph aureus. ID following. Debility - admitted from a senior care with significant debility, she has been on bed rest, mechanically ventilated. No new medication recommendations at this time. Will assist with transition to comfort orders at the time to transition to comfort. * Palliative care will continue to follow the patient during hospital course as condition evolves, to assist patient/decision-maker with understanding of their medical conditions, weighing benefits/burdens of treatment options, for clarification of goals of treatment. Additionally will assist with any symptoms of palliative concern. . (Mirlande Pak) Attestation To help prompt me to consider important information that might be impacting today's encounter and assessment, information from prior notes written by myself or my colleagues may have been "brought forward" into today's note. My signature on this note, however, is an attestation that I personally performed the exam, history, and/or decision-making noted today, and, unless otherwise indicated, the interactions with patient, family, and staff as well as the review of records all occurred today. I also attest that the listed assessment and stated plan reflect my best clinical judgment today based on the combination of historical information, prior notes, and today's exam/ interactions. When time spent is documented, it refers only to time spent today by the signer, or if indicated, combined time spent today by collaborating physician/nurse practitioner. (Mirlande Pak) Collaborating MD Comments Chart reviewed. Patient examined personally by me. Case discussed with palliative care [employer]. Discussed case with patient's legal guardian -- Ms. Lyons. Above note by palliative care HR INTERNS[employer] reviewed and I concur. Patient remains intubated, mechanically ventilated, sedated in MICU. No significant change in overall condition. Vital Signs Date Time Temp Pulse Resp B/P (MAP) Pulse Ox O2 Delivery O2 Flow Rate FiO2 12/06/16 11:55 98 40 12/06/16 10:00 87 12/06/16 08:25 100 40 12/06/16 08:00 97.8 87 12 140/61 (87) 98 12/06/16 08:00 40 12/06/16 08:00 87 12/06/16 07:15 86 13 98 12/06/16 07:00 87 12 158/64 (95) 98 12/06/16 06:45 87 13 99 12/06/16 06:30 85 12 141/63 (89) 97 12/06/16 06:15 85 12 98 12/06/16 06:00 86 12/06/16 06:00 86 12 139/61 (87) 97 12/06/16 05:45 89 12 99 12/06/16 05:31 91 19 123/56 (78) 100 12/06/16 05:30 92 32 100 12/06/16 05:15 102 53 100 12/06/16 05:00 109 37 153/64 (93) 100 12/06/16 04:45 104 48 98 12/06/16 04:31 98 40 12/06/16 04:30 106 46 96 12/06/16 04:15 110 41 99 12/06/16 04:01 111 35 178/69 (105) 97 12/06/16 04:00 40 12/06/16 04:00 98.9 12/06/16 04:00 109 32 96 12/06/16 04:00 109 12/06/16 03:45 102 52 96 12/06/16 03:30 102 45 159/67 (97) 95 12/06/16 03:15 100 53 97 12/06/16 03:00 100 54 140/83 (102) 96 12/06/16 02:45 97 50 96 12/06/16 02:30 93 54 128/60 (82) 95 12/06/16 02:15 93 48 96 12/06/16 02:00 96 12/06/16 02:00 96 50 138/58 (84) 95 12/06/16 01:45 97 38 95 12/06/16 01:30 97 47 131/62 (85) 93 12/06/16 01:15 96 43 95 12/06/16 01:00 96 40 12/06/16 01:00 91 12 124/58 (80) 95 12/06/16 00:45 97 57 96 12/06/16 00:30 97 59 130/61 (84) 94 12/06/16 00:15 99 60 96 12/06/16 00:00 100 12/06/16 00:00 100 51 94 12/06/16 00:00 40 12/06/16 00:00 99.9 12/05/16 23:45 94 12 95 12/05/16 23:30 91 12 135/60 (85) 93 12/05/16 23:15 90 12 96 12/05/16 23:00 91 12 130/60 (83) 95 12/05/16 22:45 90 49 98 12/05/16 22:30 89 38 148/64 (92) 95 12/05/16 22:15 83 12 96 12/05/16 22:00 87 12/05/16 22:00 87 27 148/63 (91) 96 12/05/16 21:54 97 40 12/05/16 21:45 98 13 96 12/05/16 21:30 100 12 142/63 (89) 95 12/05/16 21:15 93 12 96 12/05/16 21:00 87 13 142/64 (90) 97 12/05/16 20:45 85 12 97 12/05/16 20:30 92 12 163/70 (101) 99 12/05/16 20:15 88 12 97 12/05/16 20:00 100.4 12 12/05/16 20:00 88 12/05/16 20:00 88 13 140/63 (88) 96 12/05/16 20:00 40 12/05/16 18:00 100 12/05/16 16:00 98.6 94 12 134/62 (86) 99 12/05/16 16:00 40 12/05/16 16:00 94 EXAM: Lungs with scattered ronchi. Symetric respirations. Tachypnea improved at time of my visit RRR without murmur. Abdomen benign -- tube feedings running 1+ edema in lower extremities. Sedated. Not opening eyes to voice/exam. Does not withdraw to noxious stimuli. Laboratory Tests Test 10/28/16 16:15 10/28/16 20:00 10/28/16 21:00 10/29/16 03:28 B-Type Natriuretic Peptide 12 PG/ML Lactic Acid Level 1.9 mmol/L Nasal Screen MRSA (PCR) MRSA DETECTED Troponin I LESS THAN 0.02 NG/ML Test 10/29/16 17:05 10/31/16 03:35 10/31/16 14:05 10/31/16 20:15 M. tuberculosis Complex DNA (PCR) NOT DETECTED Protein Corrected Calcium 7.8 MG/DL Thyroxine (T4) 6.7 MCG/DL Total Triiodothyronine 90 NG/DL Thyroid Stimulating Hormone 3rd Gen 0.707 uIU/ML Prothrombin Time 10.8 SEC Prothromb Time International Ratio 1.0 RATIO Activated Partial Thromboplast Time 34.0 SEC Test 11/03/16 14:30 11/05/16 09:18 11/06/16 04:31 11/06/16 17:00 Stool C. difficile Toxin (PCR) NEGATIVE Stl C. difficile Toxin Epiderm 027 PRESUMPTIVE NEGATIVE Blood Gas Puncture Site RT RADIAL Blood Gas Patient Temperature 98.6 Blood Gas HCO3 21 mmol/L Blood Gas Base Excess -2.2 mmol/L Blood Gas Oxygen Saturation 91 % Arterial Blood pH 7.44 Arterial Blood Partial Pressure CO2 32 mmHg Arterial Blood Partial Pressure O2 66 mmHg Arterial Blood Oxygen Content 13.4 Vol % Arterial Blood Carboxyhemoglobin 1.6 % Arterial Blood Methemoglobin 1.3 % Blood Gas Hemoglobin 10.5 G/DL Oxygen Delivery Device VENTILATOR Blood Gas Ventilator Setting SEE COMMENTS Blood Gas Inspired Oxygen 35 % Total Creatine Kinase 34 U/L C-Reactive Protein 15.00 MG/DL Vitamin B12 Level 1117 PG/ML Urine Squamous Epithelial Cells 12 /hpf Test 11/06/16 19:49 11/08/16 00:50 11/09/16 09:30 11/11/16 03:59 Erythrocyte Sedimentation Rate 79 mm/hr Ammonia 23 MCMOL/L Rapid Plasma Reagin NON-REACTIVE Vancomycin Level Trough 20.5 MCG/ML Urine Color YELLOW Urine Turbidity CLOUDY Urine pH 5.5 Urine Specific [place] 1.018 Urine Protein 100 mg/dL Urine Glucose (UA) NEG mg/dL Urine Ketones NEG mg/dL Urine Occult Blood TRACE Urine Nitrite NEG Urine Bilirubin NEG Urine Urobilinogen LESS THAN 2.0 MG/DL Urine Leukocyte Esterase NEG Urine RBC 3 /hpf Urine WBC 5 /hpf Urine Amorphous Sediment MOD Urine Bacteria OCC /hpf Urine Mucus FEW /lpf Microscopic Urinalysis Comment CATH-CULTURE IND Myelocytes 1 % Red Cell Morphology Comment NORMAL Test 11/12/16 05:58 12/02/16 04:18 12/06/16 05:15 12/06/16 05:17 Differential Total Cells Counted 100 Neutrophils % (Manual) 41 % Band Neutrophils % 15 % Lymphocytes % 20 % Monocytes % 16 % Eosinophils % 6 % Basophils % 2 % Neutrophils # (Manual) 9.0 TH/MM3 Atypical Lymphocytes % Platelet Estimate HIGH Platelet Morphology Comment CLUMPED Neutrophils (%) (Auto) 61.7 % Lymphocytes (%) (Auto) 24.2 % Monocytes (%) (Auto) 8.5 % Eosinophils (%) (Auto) 5.0 % Basophils (%) (Auto) 0.6 % Neutrophils # (Auto) 9.4 TH/MM3 Lymphocytes # (Auto) 3.7 TH/MM3 Monocytes # (Auto) 1.3 TH/MM3 Eosinophils # (Auto) 0.8 TH/MM3 Basophils # (Auto) 0.1 TH/MM3 CBC Comment AUTO DIFF Differential Comment AUTO DIFF CONFIRMED Blood Urea Nitrogen 29 MG/DL 28 MG/DL Creatinine 0.60 MG/DL 0.61 MG/DL Random Glucose 114 MG/DL 126 MG/DL Total Protein 6.1 GM/DL Albumin 1.7 GM/DL Calcium Level 9.0 MG/DL 9.2 MG/DL Alkaline Phosphatase 73 U/L Aspartate Amino Transf (AST/SGOT) 14 U/L Alanine Aminotransferase (ALT/SGPT) 12 U/L Total Bilirubin 0.2 MG/DL Sodium Level 143 MEQ/L 141 MEQ/L Potassium Level 4.5 MEQ/L 4.2 MEQ/L Chloride Level 109 MEQ/L 105 MEQ/L Carbon Dioxide Level 28.5 MEQ/L 27.4 MEQ/L White Blood Count 14.8 TH/MM3 Red Blood Count 2.76 MIL/MM3 Hemoglobin 8.0 GM/DL Hematocrit 24.2 % Mean Corpuscular Volume 87.7 FL Mean Corpuscular Hemoglobin 28.9 PG Mean Corpuscular Hemoglobin Concent 33.0 % Red Cell Distribution Width 14.8 % Platelet Count 400 TH/MM3 Mean Platelet Volume 9.5 FL Phosphorus Level 4.0 MG/DL Magnesium Level 2.1 MG/DL Anion Gap 9 MEQ/L Estimat Glomerular Filtration Rate 96 ML/MIN Microbiology Date/Time Source Procedure Growth Status 12/02/16 18:29 Blood Peripheral Aerobic Blood Culture - Preliminary NO GROWTH IN 4 DAYS Resulted 12/02/16 18:29 Blood Peripheral Anaerobic Blood Culture - Preliminary NO GROWTH IN 4 DAYS Resulted 12/02/16 13:35 Sputum Endotracheal Gram Stain - Final Complete 12/02/16 13:35 Sputum Culture - Final Pseudomonas Aeruginosa Stenotrophomonas Maltophilia Complete 12/02/16 13:35 Urine Catheterized Urine Urine Culture - Preliminary Pseudomonas Aeruginosa Escherichia Coli Esbl Positive Resulted 10/28/16 17:00 Other - Final Complete Last Impressions Chest X-Ray 12/02/16 0600 Signed Impressions: Service Date/Time: Friday, December 02, 2016 03:57 - CONCLUSION: 1. The patient is now mildly rotated to the left with increased opacity in both lungs of concern for pneumonia or asymmetric pulmonary edema. 2. There are probable small effusions. Arun Martinez MD Cervical Spine MRI 11/06/16 0000 Signed Impressions: Service Date/Time: Sunday, November 06, 2016 21:36 - CONCLUSION: 1. Multilevel degenerative changes of the cervical spine as above, especially C5/ C6 and C6/C7. 2. Mild to moderate spinal stenosis and severe right foraminal stenosis at C5/C6. 3. Mild spinal stenosis and moderate right foraminal stenosis at C6/C7. 4. No cord compression or cord signal abnormality. 5. No fracture or subluxation. 6. Large nodule of the left lobe of the thyroid gland. There are also upper limits of normal bilateral cervical lymph nodes. Keshav Burks MD Brain MRI 11/06/16 0000 Signed Impressions: Service Date/Time: Sunday, November 06, 2016 21:36 - CONCLUSION: 1. No change or acute abnormality demonstrated. 2. Atrophy, ventriculomegaly and chronic white matter changes are again noted. Keshav Burks MD Thyroid Ultrasound 10/31/16 0000 Signed Impressions: Service Date/Time: Monday, October 31, 2016 11:47 - CONCLUSION: Large complex mass right lobe of the thyroid. Minimally increased in size since Jacoby Torre MD FACR Abdomen X-Ray 10/29/16 0000 Signed Impressions: Service Date/Time: Saturday, October 29, 2016 15:32 - CONCLUSION: Negative for radiopaque foreign bodies. Jacoby Torre MD FACR Chest CT 10/28/161813 Signed Impressions: Service Date/Time: Friday, October 28, 2016 18:28 - CONCLUSION: 1. Abnormality on chest radiograph corresponds to a 3.4 x 3.5 cm central right hilar mass/adenopathy with associated postobstructive airspace consolidation in the inferior right upper lobe. There are at least 2 additional pulmonary nodules measuring 13 x 8 mm in the anterior right middle lobe and 8 x 8 mm in the anterior right upper lobe near the apex. 2. 3.9 x 4.3 cm heterogeneous nodule in the right thyroid gland. No significant regional cervical adenopathy. 3. Patchy bilateral lower lobe air space consolidation and diffuse ground glass opacities. Differential considerations include ARDS versus infection versus aspiration. 1. Tyler Selby MD Head CT 10/28/16 0000 Signed Impressions: Service Date/Time: Friday, October 28, 2016 20:44 - CONCLUSION: 1. No bleed or evidence of acute infarction. 2. Atrophy and chronic white matter changes. 3. Moderate ventriculomegaly, beyond that expected for the degree of atrophy. Normal pressure hydrocephalus would be in the differential. 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 == In my clinical opinion: * Patient is incapacitated and has no reasonable chance of regaining capacity * Patient has a terminal condition per statutory definition == Legal guardian and family wish to proceed with compassionate withdrawal of life support == Clinical Educator has issued order allowing the medical team to go forward with withdrawal of life support. == Palliative care team has consulted the hospital legal department to ensure all needed documentation is in place == Guardian is notifying family to see who chooses to be here at time of withdrawal -- will await that contact and legal approval before going forward. TIME: Over 60 minutes of combined physician/SENIOR PREMIUM AUDITOR time on floor with chart review , patient exam, discussion with legal guardian, review of court order, discussion with hospital legal department regarding court order to remove life support, and documentation. Over 50% of time spent on counseling/coordination of care. . (Jhonatan Stephenson MD) Mirlande Pak Dec 06, 2016 12:24 Jhonatan Stephenson MD Dec 06, 2016 15:45
--- NOTE | 2016-12-06 14:27 | HHI.CCPN ---
Subjective Remarks/Hospital Course HPI 70[facility]-old jail resident with a medical history significant for dementia, diabetes mellitus, hyperlipidemia, reactive airway disease who was found to have altered [facility] status [facility] the jail for which [facility] was called. Patient was noted to have O2 sats in the 70s. She was very apneic with her head slumped down. Paramedics report of having to hold her head up to have her breathe with the nebulizer treatment in place. Patient was given Solu- Medrol 125 mg IV and 4 nebulizer treatments prior to arrival in the ER for documentation. On arrival in the ER patient was extremely lethargic however was reportedly able to answer some questions. Patient was felt not to be able to protect her airway as well as very hypoxic and hence was intubated by ER physician and placed on mechanical ventilation. Chest x-ray in the ER showed bilateral infiltrates and possible cavitary lesion. She was accepted for admission by critical care medicine service. CT chest was ordered by ER physician. When I evaluated the patient in the ER she was sedated with propofol , orally intubated on mechanical ventilation. History was obtained by reviewing records and discussion with ER physician. 10/29 Patient is sedated with Diprivan and intubated. Afebrile. 10/30 Patient remains sedated and intubated. T:99.7 last night. 10/31: Intubated sedated. CT reviewed and discussed with Dr. Madison. Will consider Bronch. Also check thyroid US and possible biopsy. Check thyroid studies. Also consult palliative care as patient has underlying dementia with NPH and possible malignancy. 11/01: Tmax 100.3. Plan for bronchoscopy at 3:00 today. Noted thyroid masses chronic/since 2011. Tolerating tube feeding. Positive BM. 11/02: Tmax 100.1. Status post bronchoscopy yesterday with removal of mucous plugging. Tolerating tube feeds. Positive BM. Weaning propofol sedation today. 11/03: Tmax 100.6. Noted elevated leukocytosis. Weaning sedation. Positive BM. Tolerate tube feeding. 11/04: Afebrile. UA negative. C. difficile pending. 4 bowel movement overnight. Tolerating tube feeding. No new issues. 11/05 Patient is sedated with Diprivan and intubated. T:100.7. Given Labetalol 10mg IV x3 for hypertension overnight. 11/06 No events overnight. Off sedation. T: 101.5 last night. 11/07: Tmax 102. Currently 100.6. Continues off sedation. Eyes are open to voice but not falling commands. Noted MRI brain unchanged. MRI C-spine revealed no cord compression or cord abnormality's. Severe C5/6 right foraminal narrowing 11/08: Remains intubated sedated, intermittently opens eyes. Per palliative care , network systems integrator requesting letter of certification from treatment team. Prior to making a decision to withdraw from life support, the network systems integrator is requesting a letter from the covering physicians certifying that she is hospice appropriate and palliative rather than aggressive treatment is appropriate. Dr. Madison thinks hospice is appropriate but also recommends Oncology input. I have consulted medical oncology 11/09 Patient remains intubated, on no sedation, Tmax 103.1 gets tachypneic with CPAP trials 11/10 Patient is intubated had T:100.3 last night. Doesn't follow commands. 11/11 No events overnight. Placed on Precedex drip yesterday to facilitate with weaning trials. T: 99.7. Awake looking around with her eyes but does not following commands. 11/12 Patient remains intubated. On Precedex drip. Did not tolerate CPAP trials yesterday. 11/13 No events overnight. Intubated doesn't tolerate CPAP trials. T:100.5 last night. 11/14 Patient remains intubated. Off sedation. T;100.1 11/15 No events overnight. Intubated. T:100.8 last night. 11/16: Tmax 99.5. Currently resting in bed in no acute distress. Eyes are open but does not follow commands. Off all sedation. Tolerating tube feeding. Positive BM. 11/17: Tmax 100.1. Resting blood eyes open not falling commands. Off all sedation. Tolerating tube feeds. Intermittently hypertensive. 11/18: Tmax 99.5. Moving head back and forth and following commands weakly with bilateral upper extremities. Tolerating tube feeds. Off all sedation 7 days. 11/19: Asynchronous with the vent. Now on propofol. Probable withdrawal of care today according to palliative care. Waiting to hear back from guardian 11/20: Waiting for network systems integrator's order to permit withdrawal from ventilator, and comfort measures. At this time patient is sedated with propofol. Fentanyl as needed 11/21: Sedated with propofol appears comfortable. Bilateral course breath sounds. IV Bumex and DuoNeb ordered 11/22: Patient remains on the vent breathing comfortably on propofol. Bilateral wheezing has improved. No further decision had been made regarding date of withdrawal. 11/23: No change in condition, comfortable on propofol. Patient is synchronous with the ventilator 11/24: Wheezing, tachypneic on vent. DuoNeb will be administered by respiratory 11/25: No recent labs or chest x-ray done. Wheezing improved 11/26: No changes in her mental status or clinical condition. Synchronous with the vent 11/27: No change in clinical condition. Per palliative care notes, Notice of Hearing to take place on November 29, to discuss Emergency Petition to Authorize Removal of Life Support. 11/28: No change in condition, hearing scheduled for tomorrow. Patient appears comfortable 11/29: Hearing is today. No changes in clinical condition. Remains terminally ill with multiple terminal conditions 11/30: Request for withdrawal of life support denied yesterday by the network systems integrator. No further updates or changes. See palliative care notes for details 12/01: No new updates, Patient appears comfortable. 12/02; Remains intubated, sedated for comfort. No evidence of meaningful recovery, continues to be terminally ill. 12/03: no changes or improvements. terminally ill without hope of recovery. 12/04: no improvements. poor prognosis. awaiting network systems integrator hearing. 12/05: No change in condition. Unresponsive on the ventilator. Subjective 12/06: Truck Unloader has presented ordered for withdrawal of care. Coordinating with palliative care and son currently. Currently afebrile. Tolerating tube feeds. Objective Vital Signs Date Time Temp Pulse Resp B/P (MAP) Pulse Ox O2 Delivery O2 Flow Rate FiO2 12/06/16 11:55 98 40 12/06/16 10:00 87 12/06/16 08:00 97.8 12 140/61 (87) Intake and Output 12/06/16 12/06/16 12/07/16 08:00 16:00 00:00 Intake Total 790 ml Output Total 400 ml Balance 390 ml Result Diagram: 12/06/16 0515 12/06/16 0517 Other Results Microbiology Date/Time Source Procedure Growth Status 12/02/16 18:29 Blood Peripheral Aerobic Blood Culture - Preliminary NO GROWTH IN 4 DAYS Resulted 12/02/16 18:29 Blood Peripheral Anaerobic Blood Culture - Preliminary NO GROWTH IN 4 DAYS Resulted 12/02/16 13:35 Sputum Endotracheal Gram Stain - Final Complete 12/02/16 13:35 Sputum Culture - Final Pseudomonas Aeruginosa Stenotrophomonas Maltophilia Complete 12/02/16 13:35 Urine Catheterized Urine Urine Culture - Preliminary Pseudomonas Aeruginosa Escherichia Coli Esbl Positive Resulted 10/28/16 17:00 Other - Final Complete Imaging Last Impressions Chest X-Ray 12/02/16 0600 Signed Impressions: Service Date/Time: Friday, December 02, 2016 03:57 - CONCLUSION: 1. The patient is now mildly rotated to the left with increased opacity in both lungs of concern for pneumonia or asymmetric pulmonary edema. 2. There are probable small effusions. Arun Martinez MD Cervical Spine MRI 11/06/16 0000 Signed Impressions: Service Date/Time: Sunday, November 06, 2016 21:36 - CONCLUSION: 1. Multilevel degenerative changes of the cervical spine as above, especially C5/ C6 and C6/C7. 2. Mild to moderate spinal stenosis and severe right foraminal stenosis at C5/C6. 3. Mild spinal stenosis and moderate right foraminal stenosis at C6/C7. 4. No cord compression or cord signal abnormality. 5. No fracture or subluxation. 6. Large nodule of the left lobe of the thyroid gland. There are also upper limits of normal bilateral cervical lymph nodes. Keshav Burks MD Brain MRI 11/06/16 0000 Signed Impressions: Service Date/Time: Sunday, November 06, 2016 21:36 - CONCLUSION: 1. No change or acute abnormality demonstrated. 2. Atrophy, ventriculomegaly and chronic white matter changes are again noted. Keshav Burks MD Thyroid Ultrasound 10/31/16 0000 Signed Impressions: Service Date/Time: Monday, October 31, 2016 11:47 - CONCLUSION: Large complex mass right lobe of the thyroid. Minimally increased in size since Jacoby Torre MD FACR Abdomen X-Ray 10/29/16 0000 Signed Impressions: Service Date/Time: Saturday, October 29, 2016 15:32 - CONCLUSION: Negative for radiopaque foreign bodies. Jacoby Torre MD FACR Chest CT 10/28/16 1814 Signed Impressions: Service Date/Time: Friday, October 28, 2016 18:28 - CONCLUSION: 1. Abnormality on chest radiograph corresponds to a 3.4 x 3.5 cm central right hilar mass/adenopathy with associated postobstructive airspace consolidation in the inferior right upper lobe. There are at least 2 additional pulmonary nodules measuring 13 x 8 mm in the anterior right middle lobe and 8 x 8 mm in the anterior right upper lobe near the apex. 2. 3.9 x 4.3 cm heterogeneous nodule in the right thyroid gland. No significant regional cervical adenopathy. 3. Patchy bilateral lower lobe air space consolidation and diffuse ground glass opacities. Differential considerations include ARDS versus infection versus aspiration. 1. Tyler Selby MD Head CT 10/28/16 0000 Signed Impressions: Service Date/Time: Friday, October 28, 2016 20:44 - CONCLUSION: 1. No bleed or evidence of acute infarction. 2. Atrophy and chronic white matter changes. 3. Moderate ventriculomegaly, beyond that expected for the degree of atrophy. Normal pressure hydrocephalus would be in the differential. Keshav Burks MD Objective Remarks GENERAL: 71-year-old female, critically ill orotracheally intubated, sedated SKIN: Warm and dry. HEENT: Atraumatic. Normocephalic. Orotracheally intubated NECK: Trachea midline. No JVD. Right-sided thyromegaly/palpable mass noted CARDIOVASCULAR: RR. RESPIRATORY: unlabored. equal chest rise.on full support. GASTROINTESTINAL: Abdomen soft, non-tender, nondistended. MUSCULOSKELETAL: Extremities bilateral trace lower extremity edema. No obvious deformities. NEUROLOGICAL: sedated. Intermittently moves extremities, no purposeful movements noted A/P Assessment and Plan Neuro/Psych: Depression/anxiety Toxic metabolic encephalopathy Ventriculomegaly History of dementia On propofol for vent synchrony, monitor neuro status. As needed fentanyl 50 every 2 hours when necessary pain EEG 11/06 triphasic sway/diffuse sharp waves likely moderate encephalopathy cannot rule out proclivity of seizure Neuro Dr. Sampson. CT brain: Moderate ventriculomegaly, beyond that expected for the degree of atrophy. MRI confirms. Neurosurgery Dr. Hernandez No intervention Holding home medications clonazepam 0.5 mg twice a day and quetiapine 25 mg at night On levetiracetam 500 mg IV twice a day per neurology's EEG above CV: Hypertension Dyslipidemia On Lopressor 50mg Q8, amlodipine 10mg daily, Clonidine 0.3mg Q8 As needed hydralazine and labetalol and Nitropaste for hypertension Holding atorvastatin 40 mg by mouth daily for dyslipidemia. Qshift vitals. Pulm Acute hypoxemic respiratory failure possibly secondary to post obstructive pneumonia Squamous cell carcinoma of Lung PRVC 12/500/0/9/. Ventilator bundle. No further weaning trials. Request for ventilatory withdrawal and comfort measures denied by Truck Unloader 11/29/16 , new hearing date Monday 12/04 Albuterol/ipratropium aerosols every 6 hours with albuterol aerosols every [address] chest reviewed revealed 3.4 x 2.5 right hilar mass with post discharge pneumonia in the right upper lobe. Right middle lobe mass. Dr. Madison, s/p bronch with BAL 11/01. Cytology positive (squamous cell carcinoma ) Renal/: Hypernatremia - resolved Monitor renal function, I/O's, electrolytes replacement per protocol. GI/liver: Mild protein calorie malnutrition Continue with Glucerna 1.5 at 40 cc an hour On famotidine 20mg BID for GI prophylaxis Docusate sodium 100 mg twice a day for bowel regimen ID: Escherichia coli UTI Postobstructive pneumonia Started on levofloxacin 750 mg IV daily Abx per ID (completed fluconazole, aztreonam, meropenem) monitor for signs of infections ( Fever, WBC). Sputum - 12/02 - Stenotrophomonas/Pseudomonas Urine - 12/02 - gram-negative tracy Blood cultures - 12/02 - no growth Sputum cx 11/09: Pseudomonas, Staph Aureus Follow up on cultures and bronchoscopy 11/01- Yeast species BC 11/04: NGTD Blood cultures - 11/06 - NGTD Sputum 11/06 ESBL E Coli, PSAE, Staph. Strep pneumonia urinary Ag negative. ID has followed Urine cx 10/28: E COLI Heme: Leukocytosis Normocytic anemia SCC lung Patient has hilar mass with pulmonary nodules, also thyroid mass. Seen by Oncology-Dr. Xavier patient is not candidate for surgery, chemo radiation given poor performance status, hospice was recommended. Endocrine: Diabetes mellitus Right thyroid mass 6.8 cm/chronic Detemir 25 units Q12 On SSI medium scale Novolin R for glycemic control. Patient is on insulin glargine at home Prophylaxis: Famotidine 20 mg twice a day via OG tube, SCDs/subcutaneous heparin Level 1 follow-up Patient lacks the capacity to make medical decisions. The patient is terminal. The patient is appropriate withdrawal of care/palliation Niraj Malloy MD Dec 06, 2016 14:27
--- NOTE | 2016-12-06 15:19 | HHI.HCPN ---
Called to intensive care unit by nurse to report COA guardian, [place] Lyons was at bedside requesting to speak with me. Dr. Stephenson and I met with [place] Lyons, she provided an Emergency Order Authorizing Removal of Life Support with hospice services. Sent to legal for review. Discussed with Dr. Malloy. Will coordinate timing for withdrawal of life support once legal reviews documentation. Email from legal to report they have reviewed documentation and ok to proceed with COA Guardian and family wishes with withdrawal of life support. Spoke with [place] Lyons, Legal guardian COA to notify. She will contact son Arun so we can coordinate timing of withdrawal with family/ hospice. Hospice consulted, spoke with Sarah in [facility] to coordinate. Spoke with [place] Lyons she reports son will be at hospital 12/07/16 at 1pm. [place] will meet hospice at 12:15pm to sign consents and paperwork prior to family arrival. Will need hospice present at time of withdrawal. Palliative care will be available to assist with writing orders for transition to comfort/ withdrawal of life support orders, anticipatory guidance to family. . (Mirlande Pak) Chart reviewed. Case discussed with palliative care HAND TUBE WINDER. Above HAND TUBE WINDER note reviewed and I concur. . (Jhonatan Stephenson MD) Mirlande Pak Dec 06, 2016 15:19 Jhonatan Stephenson MD Dec 06, 2016 17:41
[2016-12-06] MEDS: LEVOFLOXACIN 750 MG PREMIX INJ 150 ML IV SCH (16:03)
--- NOTE | 2016-12-06 17:54 | HHI.PR ---
Subjective Remarks 70 YOWF with VDRF,Pneumonia, ? Aspiration Bronchial wash Sq cell ca Mod amount of trach secretions. No fever Sedated with Diprivan Objective Vital Signs Vital Signs Date Time Temp Pulse Resp B/P (MAP) Pulse Ox O2 Delivery O2 Flow Rate FiO2 12/06/16 16:17 99 40 12/06/16 11:55 98 40 12/06/16 10:00 87 12/06/16 08:25 100 40 12/06/16 08:00 97.8 87 12 140/61 (87) 98 12/06/16 08:00 40 12/06/16 08:00 87 12/06/16 07:15 86 13 98 12/06/16 07:00 87 12 158/64 (95) 98 12/06/16 06:45 87 13 99 12/06/16 06:30 85 12 141/63 (89) 97 12/06/16 06:15 85 12 98 12/06/16 06:00 86 12/06/16 06:00 86 12 139/61 (87) 97 12/06/16 05:45 89 12 99 12/06/16 05:31 91 19 123/56 (78) 100 12/06/16 05:30 92 32 100 12/06/16 05:15 102 53 100 12/06/16 05:00 109 37 153/64 (93) 100 12/06/16 04:45 104 48 98 12/06/16 04:31 98 40 12/06/16 04:30 106 46 96 12/06/16 04:15 110 41 99 12/06/16 04:01 111 35 178/69 (105) 97 12/06/16 04:00 40 12/06/16 04:00 98.9 12/06/16 04:00 109 32 96 12/06/16 04:00 109 12/06/16 03:45 102 52 96 12/06/16 03:30 102 45 159/67 (97) 95 12/06/16 03:15 100 53 97 12/06/16 03:00 100 54 140/83 (102) 96 12/06/16 02:45 97 50 96 12/06/16 02:30 93 54 128/60 (82) 95 12/06/16 02:15 93 48 96 12/06/16 02:00 96 12/06/16 02:00 96 50 138/58 (84) 95 12/06/16 01:45 97 38 95 12/06/16 01:30 97 47 131/62 (85) 93 12/06/16 01:15 96 43 95 12/06/16 01:00 96 40 12/06/16 01:00 91 12 124/58 (80) 95 12/06/16 00:45 97 57 96 12/06/16 00:30 97 59 130/61 (84) 94 12/06/16 00:15 99 60 96 12/06/16 00:00 100 12/06/16 00:00 100 51 94 12/06/16 00:00 40 12/06/16 00:00 99.9 12/05/16 23:45 94 12 95 12/05/16 23:30 91 12 135/60 (85) 93 12/05/16 23:15 90 12 96 12/05/16 23:00 91 12 130/60 (83) 95 12/05/16 22:45 90 49 98 12/05/16 22:30 89 38 148/64 (92) 95 12/05/16 22:15 83 12 96 12/05/16 22:00 87 12/05/16 22:00 87 27 148/63 (91) 96 12/05/16 21:54 97 40 12/05/16 21:45 98 13 96 12/05/16 21:30 100 12 142/63 (89) 95 12/05/16 21:15 93 12 96 12/05/16 21:00 87 13 142/64 (90) 97 12/05/16 20:45 85 12 97 12/05/16 20:30 92 12 163/70 (101) 99 12/05/16 20:15 88 12 97 12/05/16 20:00 100.4 12 12/05/16 20:00 88 12/05/16 20:00 88 13 140/63 (88) 96 12/05/16 20:00 40 12/05/16 18:00 100 I/O 12/05/16 12/05/16 12/05/16 12/06/16 12/06/16 12/06/16 07:00 15:00 23:00 07:00 15:00 23:00 Intake Total 722 ml 738 ml 790 ml Output Total 400 ml 450 ml 400 ml Balance 322 ml 288 ml 390 ml Intake Oral 0 ml 0 ml IV Total 200 ml 276 ml 177 ml Tube Feeding 462 ml 462 ml 406 ml TPN/PPN 207 ml Other 60 ml Output Urine Total 400 ml 450 ml 400 ml # Bowel Movements 1 1 Result Diagram: 12/06/1651412/06/16516 Objective Remarks GENERAL: MBMN WF, intubated, sedated SKIN: Warm and dry. HEAD: Normocephalic. EYES: No scleral icterus. No injection or drainage. NECK: Supple, trachea midline. No JVD or lymphadenopathy. CARDIOVASCULAR: Regular rate and rhythm without murmurs, gallops, or rubs. RESPIRATORY: Breath sounds equal bilaterally. No accessory muscle use. GASTROINTESTINAL: Abdomen soft, non-tender, nondistended. MUSCULOSKELETAL: No cyanosis, or edema. BACK: Nontender without obvious deformity. No CVA tenderness. A/P Assessment and Plan VDRF Pneumonia Aspiration DM Dementia Ventriculomegaly Squamous cell ca PLAN: Vent Support -AC 16, Fi02 40% Cont Abx Aerosol nebs SQ Heparin Code status DNR Prognosis poor Levsin q 4 hrs prn Hospice coordinating for withdrawl of life support Luis Madison MD Dec 06, 2016 17:54
[2016-12-07] VITALS (11 sets, daily range): BP systolic 155–158; BP diastolic 63–70; PULSE 0–102; RESP 0–12; TEMP 98–99.5; O2SAT 96–99
[2016-12-07] MEDS: INSULIN NovoLIN REGULAR SUPPLEMENTAL SCALE SQ SCH ×2 (02:00→08:00)
[2016-12-07] MEDS: levETIRAcetam INJ 500 MG in SODIUM CHLORIDE 0.9% INJ 100 ML IV SCH (02:07)
[2016-12-07] MEDS: CHLORHEXIDINE GLUCONATE 2 % 1 PACK (2 CLOTHS) TOP SCH (02:08)
[2016-12-07] MEDS: RESP: ALBUTEROL 2.5 MG/IPRATROPIUM 0.5 MG NEB (SCH) NEB ×2 (03:31→08:33)
[2016-12-07] MEDS: HYOSCYAMINE 0.125 MG TAB PO SCH ×2 (04:19→09:56)
[2016-12-07] MEDS: PROPOFOL 1000 MG/100 ML INJ 100 ML IV PRN (04:20)
[2016-12-07] MEDS: cloNIDine HCL 0.3 MG TAB PO SCH (06:00)
[2016-12-07] MEDS: ARTIFICIAL TEARS OPTH SOLN 15 ML BTL EACH EYE SCH (06:02)
[2016-12-07] MEDS: METOPROLOL TARTRATE 50 MG TAB PO SCH (06:02)
[2016-12-07] MEDS: SODIUM CHLORIDE 0.9% FLUSH 10 ML FLUSH IV FLUSH SCH (09:00)
[2016-12-07] MEDS: INSULIN DETEMIR 100 UNITS/ML VIAL SQ SCH (09:00)
[2016-12-07] MEDS: DOCUSATE SODIUM 100 MG/10 ML UDC PO SCH (09:55)
[2016-12-07] MEDS: LACTOBACILLUS ACIDOPHILUS TAB PO SCH (09:55)
[2016-12-07] MEDS: FAMOTIDINE 20 MG TAB PO SCH (09:55)
[2016-12-07] MEDS: HEPARIN SODIUM - SQ 10,000 UNITS/ML VIAL SQ SCH (09:56)
[2016-12-07] MEDS: MUPIROCIN 2% OINT 1 APPLIC/GM SYR EACH NARE SCH (09:56)
[2016-12-07] MEDS: CHLORHEXIDINE 0.12% (ORAL KIT) 15 ML CUP MT SCH (09:57)
--- NOTE | 2016-12-07 11:24 | HHI.HCPN ---
Reason for visit a. To assist with evaluation and management of symptoms including: dyspnea, tachypnea, debility. b. To assist medical decision maker(s) with: better understanding of current medical conditions; weighing benefits/burdens of medical treatment options; making medical treatment decisions. . Subjective/Interval History Patient seen and examined in ICU. Discussed with nurse, Cipriano and case management. Spoke with hospice admission nurse. Patient remains unresponsive on mechanical vent FiO2 40%, on Diprivan. Respirations are labored. She remains tachypneic, rate 40's. Tmax 99.5. Tachycardic, rate 102. No new labs or imaging. No clinical improvement. Medical team notes indicate patient is terminally ill without hope of recovery. Plan to proceed with hospice admission with legal guardian at 12:15pm. Family anticipated to arrive 1pm for withdrawal of life support. . Family/friend interactions Plan to proceed with hospice admission with legal guardian at 12:15pm. Family anticipated to arrive 1pm for withdrawal of life support. . Advance Directives Living Will: Never completed Health Care Surrogate: Never completed Durable Power of Case Management Rn: Never completed Advance Directive Specifics Health Care Surrogate(s): Patient has a court appointed guardian, [facility] on [facility]. . Significant change in goals: NO CODE. Plan to proceed with hospice admission with legal guardian at 12:15pm. Family anticipated to arrive 1pm for withdrawal of life support. Objective Vital Signs Date Time Temp Pulse Resp B/P (MAP) Pulse Ox O2 Delivery O2 Flow Rate FiO2 12/07/16 08:33 99 40 12/07/16 06:00 102 12/07/16 04:00 40 12/07/16 04:00 101 12/07/16 04:00 99.5 101 12 157/67 (97) 96 12/07/16 03:31 99 40 12/07/16 02:00 90 12/07/16 00:00 92 12/07/16 00:00 99.5 92 12 155/63 (93) 98 12/07/16 00:00 40 12/06/16 23:57 99 40 12/06/16 22:00 97 12/06/16 21:38 99 40 12/06/16 20:00 99.3 100 13 141/64 (89) 97 12/06/16 20:00 40 12/06/16 20:00 100 12/06/16 18:00 93 12/06/16 16:17 99 40 12/06/16 16:00 40 12/06/16 16:00 98.6 88 13 121/56 (77) 98 12/06/16 16:00 88 12/06/16 14:00 91 12/06/16 12:00 40 12/06/16 12:00 98.2 97 12 123/60 (81) 97 12/06/16 12:00 97 12/06/16 11:55 98 40 Intake & Output 12/07/16 12/07/16 07:00 19:00 Intake Total 1109 ml Output Total 800 ml Balance 309 ml IV Total 228 ml Tube Feeding 481 ml Other 400 ml Output Urine Total 800 ml # Bowel Movements 0 Physical Exam CONSTITUTIONAL/GENERAL: This is an elderly, critically, chronically ill patient, on mech vent. TUBES/LINES/DRAINS: PIV, ETT, OGT, Jang catheter, SCDs EYES: eyes closed. CARDIOVASCULAR: Tachycardic. RESPIRATORY/CHEST: labored respirations on mech vent. Course breath sounds noted bilaterally. GASTROINTESTINAL: Abdomen soft, round. Bowel sounds present. Tolerating tube feeding. GENITOURINARY: Without palpable bladder distension. Jang catheter in place. MUSCULOSKELETAL: Extremities with 2+ edema to bilateral extremities. No mottling or clubbing. NEUROLOGICAL: Intubated. Eyes closed. Not following commands. Not responding to tactile or verbal stimuli. PSYCHIATRIC: unresponsive. . Diagnostic Tests Laboratory Laboratory Tests Test 12/06/16 05:15 12/06/16 05:17 White Blood Count 14.8 TH/MM3 (4.0-11.0) Red Blood Count 2.76 MIL/MM3 (4.00-5.30) Hemoglobin 8.0 GM/DL (11.6-15.3) Hematocrit 24.2 % (35.0-46.0) Mean Corpuscular Volume 87.7 FL (80.0-100.0) Mean Corpuscular Hemoglobin 28.9 PG (27.0-34.0) Mean Corpuscular Hemoglobin Concent 33.0 % (32.0-36.0) Red Cell Distribution Width 14.8 % (11.6-17.2) Platelet Count 400 TH/MM3 (150-450) Mean Platelet Volume 9.5 FL (7.0-11.0) Blood Urea Nitrogen 28 MG/DL (7-18) Creatinine 0.61 MG/DL (0.50-1.00) Random Glucose 126 MG/DL (74-106) Calcium Level 9.2 MG/DL (8.5-10.1) Phosphorus Level 4.0 MG/DL (2.5-4.9) Magnesium Level 2.1 MG/DL (1.5-2.5) Sodium Level 141 MEQ/L (136-145) Potassium Level 4.2 MEQ/L (3.5-5.1) Chloride Level 105 MEQ/L (98-107) Carbon Dioxide Level 27.4 MEQ/L (21.0-32.0) Anion Gap 9 MEQ/L (5-15) Estimat Glomerular Filtration Rate 96 ML/MIN (>89) Result Diagram: 12/06/16 0515 12/06/16 0517 Microbiology Microbiology Date/Time Source Procedure Growth Status 12/02/16 18:29 Blood Peripheral Aerobic Blood Culture - Final NO GROWTH IN 5 DAYS Complete 12/02/16 18:29 Blood Peripheral Anaerobic Blood Culture - Final NO GROWTH IN 5 DAYS Complete 12/02/16 13:35 Sputum Endotracheal Gram Stain - Final Complete 12/02/16 13:35 Sputum Culture - Final Pseudomonas Aeruginosa Stenotrophomonas Maltophilia Complete 12/02/16 13:35 Urine Catheterized Urine Urine Culture - Final Pseudomonas Aeruginosa Escherichia Coli Esbl Positive Complete 10/28/16 17:00 Other - Final Complete Imaging Last Impressions Chest X-Ray 12/02/16 0600 Signed Impressions: Service Date/Time: Friday, December 02, 2016 03:57 - CONCLUSION: 1. The patient is now mildly rotated to the left with increased opacity in both lungs of concern for pneumonia or asymmetric pulmonary edema. 2. There are probable small effusions. Arun Martinez MD Cervical Spine MRI 11/06/16 0000 Signed Impressions: Service Date/Time: Sunday, November 06, 2016 21:36 - CONCLUSION: 1. Multilevel degenerative changes of the cervical spine as above, especially C5/ C6 and C6/C7. 2. Mild to moderate spinal stenosis and severe right foraminal stenosis at C5/C6. 3. Mild spinal stenosis and moderate right foraminal stenosis at C6/C7. 4. No cord compression or cord signal abnormality. 5. No fracture or subluxation. 6. Large nodule of the left lobe of the thyroid gland. There are also upper limits of normal bilateral cervical lymph nodes. Keshav Burks MD Brain MRI 11/06/16 0000 Signed Impressions: Service Date/Time: Sunday, November 06, 2016 21:36 - CONCLUSION: 1. No change or acute abnormality demonstrated. 2. Atrophy, ventriculomegaly and chronic white matter changes are again noted. Keshav Burks MD Thyroid Ultrasound 10/31/16 0000 Signed Impressions: Service Date/Time: Monday, October 31, 2016 11:47 - CONCLUSION: Large complex mass right lobe of the thyroid. Minimally increased in size since Jacoby Torre MD FACR Abdomen X-Ray 10/29/16 0000 Signed Impressions: Service Date/Time: Saturday, October 29, 2016 15:32 - CONCLUSION: Negative for radiopaque foreign bodies. Jacoby Torre MD FACR Chest CT 10/28/161813 Signed Impressions: Service Date/Time: Friday, October 28, 2016 18:28 - CONCLUSION: 1. Abnormality on chest radiograph corresponds to a 3.4 x 3.5 cm central right hilar mass/adenopathy with associated postobstructive airspace consolidation in the inferior right upper lobe. There are at least 2 additional pulmonary nodules measuring 13 x 8 mm in the anterior right middle lobe and 8 x 8 mm in the anterior right upper lobe near the apex. 2. 3.9 x 4.3 cm heterogeneous nodule in the right thyroid gland. No significant regional cervical adenopathy. 3. Patchy bilateral lower lobe air space consolidation and diffuse ground glass opacities. Differential considerations include ARDS versus infection versus aspiration. 1. Tyler Selby MD Head CT 10/28/16 0000 Signed Impressions: Service Date/Time: Friday, October 28, 2016 20:44 - CONCLUSION: 1. No bleed or evidence of acute infarction. 2. Atrophy and chronic white matter changes. 3. Moderate ventriculomegaly, beyond that expected for the degree of atrophy. Normal pressure hydrocephalus would be in the differential. Keshav Burks MD Procedures 11/01/16 Bronchoscopy 10/28/16 Intubated and mechanically ventilated . Assessment and Plan Disease Oriented Problem List: (1) Squamous cell carcinoma (2) Acute respiratory failure requiring reintubation (3) Pulmonary nodules (4) Normal pressure hydrocephalus (5) Diabetes mellitus (6) Thyroid mass Symptom Scale: (1) Shortness of breath 0-10 Scale: Unable to quantify Comment: Intubated and mechanically ventilated. . (2) Debility 0-10 Scale: Unable to quantify Comment: Resident of a long-term facility, requiring assistance with ADLs. Progressive debility. . 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 As per prior medical records from 2007, patient has two sons who reside in the area. Per court appointed guardian, one son is and the other son who once served as patient`s DPOA was not fulfilling his duties and the court appointed a guardian for the patient. 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 Spiritual: Unable to obtain, patient is intubated on mechanical ventilation and sedated. Legal: Incapacitated, not going to regain capacity due to end stage dementia. Patient has a court appointed guardian. Ethical issues impacting care: Patient has a court appointed guardian.Patient has a signed DNR in 2010 by her son prior to court appointed guardian. . Important Contacts [place] Lyons/[facility] on A[facility]- Court appointed guardian [phone] . Prognosis Ms Sha has had prolonged hospital course, [facility], unable to be weaned due to underlying COPD and lung cancer. Patient has end stage dementia, will not regain capacity. In speaking with oncology, power saw mechanic, neurology and palliative care patient is terminal as she is not able to be weaned from vent, not a candidate for treatment of lung cancer. . Code Status: No Code Plan * Legal decision maker: Patient is incapacitated, will not regain capacity. Patient has court appointed COA guardian, [place] Lyons. * NO CODE * Goals: Emergency Order Authorizing Removal of Life Support with hospice services received on 12/05/16, on chart and scanned to EMR. Plan to proceed with hospice admission with legal guardian at 12:15pm. Family anticipated to arrive 1pm for withdrawal of life support. Will plan for transfer to Hospice care center in AM if patient survives. * Discussed with nurse, Cipriano, hospice admission nurse, case management, Dr. Stephenson. * Exhibits B & C on chart, signed by 2 physicians. * Dr. Stephenson will be available to write orders for transition to comfort measures with withdrawal of life support later today. * SYMPTOMS: Respiratory distress/ dyspnea - patient remains intubated on mechanical ventilation, tachypneic. Plan for compassionate withdrawal of life support later today. Debility - [facility] with significant debility, she has been on bed rest, mechanically ventilated. Will assist with transition to comfort orders. * Palliative care will continue to follow the patient during hospital course as condition evolves, to assist patient/decision-maker with understanding of their medical conditions, weighing benefits/burdens of treatment options, for clarification of goals of treatment. Additionally will assist with any symptoms of palliative concern. . Attestation To help prompt me to consider important information that might be impacting today's encounter and assessment, information from prior notes written by myself or my colleagues may have been "brought forward" into today's note. My signature on this note, however, is an attestation that I personally performed the exam, history, and/or decision-making noted today, and, unless otherwise indicated, the interactions with patient, family, and staff as well as the review of records all occurred today. I also attest that the listed assessment and stated plan reflect my best clinical judgment today based on the combination of historical information, prior notes, and today's exam/ interactions. When time spent is documented, it refers only to time spent today by the signer, or if indicated, combined time spent today by collaborating physician/nurse practitioner. Mirlande Pak Dec 07, 2016 11:24
[2016-12-07] MEDS ORDERED: HYOSCYAMINE 0.5 MG/ML AMP IV PUSH ONE (13:15)
[2016-12-07] MEDS ORDERED: HYOSCYAMINE 0.5 MG/ML AMP IV PUSH PRN (13:45)
[2016-12-07] MEDS ORDERED: BISACODYL 10 MG SUPP RECTAL PRN (13:45)
[2016-12-07] MEDS ORDERED: LORazepam 2 MG/ML VIAL IV PUSH PRN ×3 (13:45→14:00)
[2016-12-07] MEDS ORDERED: MORPHINE SULFATE 8 MG/ML INJ IV PUSH ONE (14:00)
[2016-12-07] MEDS ORDERED: MORPHINE SULFATE 4 MG/ML INJ IV PUSH ONE (14:00)
[2016-12-07] MEDS ORDERED: ACETAMINOPHEN 650 MG SUPP RECTAL PRN (14:00)
[2016-12-07] MEDS ORDERED: MORPHINE SULFATE 8 MG/ML INJ IV PUSH PRN (14:00)
[2016-12-07] MEDS ORDERED: LORazepam 2 MG/ML VIAL IV PUSH ONE ×2 (14:00)
[2016-12-07] MEDS ORDERED: FUROSEMIDE 20 MG/2 ML VIAL IV PUSH PRN (14:00)
[2016-12-07] MEDS ORDERED: MORPHINE SULFATE 4 MG/ML INJ IV PUSH PRN (14:00)
--- NOTE | 2016-12-07 15:32 | HHI.HCPN ---
Reason for visit a. To assist with evaluation and management of symptoms including: dyspnea, tachypnea, debility. b. To assist medical decision maker(s) with: better understanding of current medical conditions; weighing benefits/burdens of medical treatment options; making medical treatment decisions. . Subjective/Interval History Patient seen and examined in ICU. Discussed with nurse. No clinical change. With court orders in place, and family and guardian present, will plan to move forward with withdrawal of life support. . Family/friend interactions Met with son and son's as well as guardian for about 25 minutes. Discussed patient's medical condition, goals and preferences for patient, then provided anticipatory guidance regarding the withdrawal of life support ( including use of medications ) , and then answered all questions. Guardian and family remain very convinced that withdrawal of life support would be what the patient would want most. They want her as comfortable as possible in the process. . Advance Directives Living Will: Never completed Health Care Surrogate: Never completed Durable Power of Temporary Staff Accountant: Never completed Advance Directive Specifics Health Care Surrogate(s): Patient has a court appointed guardian, [place] [facility]. . Objective Vital Signs Date Time Temp Pulse Resp B/P (MAP) Pulse Ox O2 Delivery O2 Flow Rate FiO2 12/07/16 08:33 99 40 12/07/16 06:00 102 12/07/16 04:00 40 12/07/16 04:00 101 12/07/16 04:00 99.5 101 12 157/67 (97) 96 12/07/16 03:31 99 40 12/07/16 02:00 90 12/07/16 00:00 92 12/07/16 00:00 99.5 92 12 155/63 (93) 98 12/07/16 00:00 40 12/06/16 23:57 99 40 12/06/16 22:00 97 12/06/16 21:38 99 40 12/06/16 20:00 99.3 100 13 141/64 (89) 97 12/06/16 20:00 40 12/06/16 20:00 100 12/06/16 18:00 93 12/06/16 16:17 99 40 12/06/16 16:00 40 12/06/16 16:00 98.6 88 13 121/56 (77) 98 12/06/16 16:00 88 Intake & Output 12/07/16 12/07/16 07:00 19:00 Intake Total 1109 ml Output Total 800 ml Balance 309 ml IV Total 228 ml Tube Feeding 481 ml Other 400 ml Output Urine Total 800 ml # Bowel Movements 0 . Physical Exam CONSTITUTIONAL/GENERAL: This is an elderly, critically, chronically ill patient, on mech vent. TUBES/LINES/DRAINS: PIV, ETT, OGT, Jang catheter, SCDs EYES: Eyes intermittently open. Sclerae clear. Pupils round. CARDIOVASCULAR: Tachycardic. No audible murmur. RESPIRATORY/CHEST: Unlabored respirations on mech vent. Course breath sounds noted bilaterally. GASTROINTESTINAL: Abdomen soft, round. Bowel sounds present. Tolerating tube feeding. GENITOURINARY: Without palpable bladder distension. Jang catheter in place. MUSCULOSKELETAL: Extremities with 2+ edema to bilateral extremities. No mottling or clubbing. NEUROLOGICAL: Intubated. eyes open but not tracking. Not following commands. Not responding to tactile or verbal stimuli. PSYCHIATRIC: unresponsive. . Diagnostic Tests Laboratory Laboratory Tests Test 12/06/16 05:15 12/06/16 05:17 White Blood Count 14.8 TH/MM3 (4.0-11.0) Red Blood Count 2.76 MIL/MM3 (4.00-5.30) Hemoglobin 8.0 GM/DL (11.6-15.3) Hematocrit 24.2 % (35.0-46.0) Mean Corpuscular Volume 87.7 FL (80.0-100.0) Mean Corpuscular Hemoglobin 28.9 PG (27.0-34.0) Mean Corpuscular Hemoglobin Concent 33.0 % (32.0-36.0) Red Cell Distribution Width 14.8 % (11.6-17.2) Platelet Count 400 TH/MM3 (150-450) Mean Platelet Volume 9.5 FL (7.0-11.0) Blood Urea Nitrogen 28 MG/DL (7-18) Creatinine 0.61 MG/DL (0.50-1.00) Random Glucose 126 MG/DL (74-106) Calcium Level 9.2 MG/DL (8.5-10.1) Phosphorus Level 4.0 MG/DL (2.5-4.9) Magnesium Level 2.1 MG/DL (1.5-2.5) Sodium Level 141 MEQ/L (136-145) Potassium Level 4.2 MEQ/L (3.5-5.1) Chloride Level 105 MEQ/L (98-107) Carbon Dioxide Level 27.4 MEQ/L (21.0-32.0) Anion Gap 9 MEQ/L (5-15) Estimat Glomerular Filtration Rate 96 ML/MIN (>89) . Result Diagram: 12/06/1615 12/06/1617 Microbiology Microbiology Date/Time Source Procedure Growth Status 12/02/16 18:29 Blood Peripheral Aerobic Blood Culture - Final NO GROWTH IN 5 DAYS Complete 12/02/16 18:29 Blood Peripheral Anaerobic Blood Culture - Final NO GROWTH IN 5 DAYS Complete 12/02/16 13:35 Sputum Endotracheal Gram Stain - Final Complete 12/02/16 13:35 Sputum Culture - Final Pseudomonas Aeruginosa Stenotrophomonas Maltophilia Complete 12/02/16 13:35 Urine Catheterized Urine Urine Culture - Final Pseudomonas Aeruginosa Escherichia Coli Esbl Positive Complete 10/28/16 17:00 Other - Final Complete . Imaging Last Impressions Chest X-Ray 12/02/16 0600 Signed Impressions: Service Date/Time: Friday, December 02, 2016 03:57 - CONCLUSION: 1. The patient is now mildly rotated to the left with increased opacity in both lungs of concern for pneumonia or asymmetric pulmonary edema. 2. There are probable small effusions. Arun Martinez MD Cervical Spine MRI 11/06/16 0000 Signed Impressions: Service Date/Time: Sunday, November 06, 2016 21:36 - CONCLUSION: 1. Multilevel degenerative changes of the cervical spine as above, especially C5/ C6 and C6/C7. 2. Mild to moderate spinal stenosis and severe right foraminal stenosis at C5/C6. 3. Mild spinal stenosis and moderate right foraminal stenosis at C6/C7. 4. No cord compression or cord signal abnormality. 5. No fracture or subluxation. 6. Large nodule of the left lobe of the thyroid gland. There are also upper limits of normal bilateral cervical lymph nodes. Keshav Burks MD Brain MRI 11/06/16 0000 Signed Impressions: Service Date/Time: Sunday, November 06, 2016 21:36 - CONCLUSION: 1. No change or acute abnormality demonstrated. 2. Atrophy, ventriculomegaly and chronic white matter changes are again noted. Keshav Burks MD Thyroid Ultrasound 10/31/16 0000 Signed Impressions: Service Date/Time: Monday, October 31, 2016 11:47 - CONCLUSION: Large complex mass right lobe of the thyroid. Minimally increased in size since Jacoby Torre MD FACR Abdomen X-Ray 10/29/16 0000 Signed Impressions: Service Date/Time: Saturday, October 29, 2016 15:32 - CONCLUSION: Negative for radiopaque foreign bodies. Jacoby Torre MD FACR Chest CT 10/28/161813 Signed Impressions: Service Date/Time: Friday, October 28, 2016 18:28 - CONCLUSION: 1. Abnormality on chest radiograph corresponds to a 3.4 x 3.5 cm central right hilar mass/adenopathy with associated postobstructive airspace consolidation in the inferior right upper lobe. There are at least 2 additional pulmonary nodules measuring 13 x 8 mm in the anterior right middle lobe and 8 x 8 mm in the anterior right upper lobe near the apex. 2. 3.9 x 4.3 cm heterogeneous nodule in the right thyroid gland. No significant regional cervical adenopathy. 3. Patchy bilateral lower lobe air space consolidation and diffuse ground glass opacities. Differential considerations include ARDS versus infection versus aspiration. 1. Tyler Selby MD Head CT 10/28/16 0000 Signed Impressions: Service Date/Time: Friday, October 28, 2016 20:44 - CONCLUSION: 1. No bleed or evidence of acute infarction. 2. Atrophy and chronic white matter changes. 3. Moderate ventriculomegaly, beyond that expected for the degree of atrophy. Normal pressure hydrocephalus would be in the differential. Keshav Burks MD . Procedures 11/01/16 Bronchoscopy 10/28/16 Intubated and mechanically ventilated . Assessment and Plan Disease Oriented Problem List: (1) Squamous cell carcinoma (2) Acute respiratory failure requiring reintubation (3) Pulmonary nodules (4) Normal pressure hydrocephalus (5) Diabetes mellitus (6) Thyroid mass Symptom Scale: (1) Pain 0-10 Scale: Unable to quantify Comment: Patient with probable discomfort from prolonged bedbound status; urinary catheter; ET tube; etc. . (2) Shortness of breath 0-10 Scale: Unable to quantify Comment: Intubated and mechanically ventilated. . (3) Debility 0-10 Scale: Unable to quantify Comment: Resident of a long-term facility, requiring assistance with ADLs. Progressive debility. . Pertinent Non-Medical Issues Psychosocial: Patient is a resident at a [facility]. As per prior medical records from 2007, patient has two sons who reside in the area. Per court appointed guardian, one son is and the other son who once served as patient`s DPOA was not fulfilling his duties and the court appointed a guardian for the patient. 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 Spiritual: Unable to obtain, patient is intubated on mechanical ventilation and sedated. Son is Religious. Legal: Incapacitated, not going to regain capacity due to end stage dementia. Patient has a court appointed guardian. Ethical issues impacting care: Patient has a court appointed guardian.Patient has a signed DNR in 2010 by her son prior to court appointed guardian. Court has authorized withdrawal of life support. . Important Contacts [place] [facility]- Court appointed guardian ( [phone] . Prognosis Ms Sha has had prolonged hospital course, remains critically ill in ICU on mech vent, unable to be weaned due to underlying COPD and lung cancer. Patient has end stage dementia, will not regain capacity. In speaking with oncology, childbirth educator, neurology and palliative care patient is terminal as she is not able to be weaned from vent, not a candidate for treatment of lung cancer. Withdrawal of life support to take place today -- 12/07/16. . . Code Status: No Code Plan * Legal decision maker: Patient is incapacitated, will not regain capacity. Patient has court appointed COA guardian, [place]. * NO CODE * Goals: Emergency Order Authorizing Removal of Life Support with hospice services received on 12/05/16, on chart and scanned to EMR. Guardian and son have confirmed goals to withdraw life support today. * Exhibits B & C on chart, signed by 2 physicians. * Per above, I provided anticipatory guidance regarding withdrawal of life support to guardian and family. * Orders written by me for withdrawal and post-wtihdrawal comfort. * Hospice to arrive and be available at time of withdrawal. Should patient survive overnight, will probably be transferred to a hospice care center. * Patient is unable to localize, quantify, qualify any of her symptoms. Wrote "comfort" orders based on best estimate of needs to keep patient comfortable. * Once enrolled in hospice and life support withdrawn, will change attending to me. * If patient survives overnight and stable for transport will discharge to hospice care center bed. . . Time Spent Total Floor Time (mins): 45 (floor time included chart review, patient exam, review of court order and "Exhibits", collaboration with primary nurse, above referenced conference with guardian and family, writing orders for withdrawal of life support, and collaboration with hospice nurse.) Face to Face Time (mins): 10 >50% Counseling/Coord of Care: Yes Attestation To help prompt me to consider important information that might be impacting today's encounter and assessment, information from prior notes written by myself or my colleagues may have been "brought forward" into today's note. My signature on this note, however, is an attestation that I personally performed the exam, history, and/or decision-making noted today, and, unless otherwise indicated, the interactions with patient, family, and staff as well as the review of records all occurred today. I also attest that the listed assessment and stated plan reflect my best clinical judgment today based on the combination of historical information, prior notes, and today's exam/ interactions. When time spent is documented, it refers only to time spent today by the signer, or if indicated, combined time spent today by collaborating physician/nurse practitioner. . Jhonatan Stephenson MD Dec 07, 2016 15:32
[2016-12-07] MEDS ORDERED: LORazepam 2 MG/ML VIAL IV PUSH SCH (16:00)
--- NOTE | 2016-12-07 17:56 | HHI.DS ---
Summary Note Date of : Dec 07, 2016 Time Of : 1558 Admission Date Oct 28, 2016 at 18:32 Admitting Diagnosis Respiratory failure, pneumonia, cavitary lesion, uti Diagnosis at Time of : Brief History 70-[facility]-old [facility] resident with a medical history significant for dementia, diabetes mellitus, hyperlipidemia, reactive airway disease who was found to have altered mental status at the [facility] for which EMS was called. Patient was noted to have O2 sats in the 70s. She was very apneic with her head slumped down. Paramedics report of having to hold her head up to have her breathe with the nebulizer treatment in place. Patient was given Solu- Medrol 125 mg IV and 4 nebulizer treatments prior to arrival in the ER for documentation. On arrival in the ER patient was extremely lethargic however was reportedly able to answer some questions. Patient was felt not to be able to protect her airway as well as very hypoxic and hence was intubated by ER physician and placed on mechanical ventilation. Chest x-ray in the ER showed bilateral infiltrates and possible cavitary lesion. She was accepted for admission by critical care medicine service. CT chest was ordered by ER physician. When I evaluated the patient in the ER she was sedated with propofol , orally intubated on mechanical ventilation. History was obtained by reviewing records and discussion with ER physician. CBC/BMP: 12/06/16 0515 12/06/16 0517 Significant Findings Laboratory Tests Test 12/06/16 05:15 12/06/16 05:17 White Blood Count 14.8 TH/MM3 (4.0-11.0) Red Blood Count 2.76 MIL/MM3 (4.00-5.30) Hemoglobin 8.0 GM/DL (11.6-15.3) Hematocrit 24.2 % (35.0-46.0) Blood Urea Nitrogen 28 MG/DL (7-18) Random Glucose 126 MG/DL (74-106) Imaging Last Impressions Chest X-Ray 12/02/16 0600 Signed Impressions: Service Date/Time: Friday, December 02, 2016 03:57 - CONCLUSION: 1. The patient is now mildly rotated to the left with increased opacity in both lungs of concern for pneumonia or asymmetric pulmonary edema. 2. There are probable small effusions. Arun Martinez MD Cervical Spine MRI 11/06/16 0000 Signed Impressions: Service Date/Time: Sunday, November 06, 2016 21:36 - CONCLUSION: 1. Multilevel degenerative changes of the cervical spine as above, especially C5/ C6 and C6/C7. 2. Mild to moderate spinal stenosis and severe right foraminal stenosis at C5/C6. 3. Mild spinal stenosis and moderate right foraminal stenosis at C6/C7. 4. No cord compression or cord signal abnormality. 5. No fracture or subluxation. 6. Large nodule of the left lobe of the thyroid gland. There are also upper limits of normal bilateral cervical lymph nodes. Keshav Burks MD Brain MRI 11/06/16 0000 Signed Impressions: Service Date/Time: Sunday, November 06, 2016 21:36 - CONCLUSION: 1. No change or acute abnormality demonstrated. 2. Atrophy, ventriculomegaly and chronic white matter changes are again noted. Keshav Burks MD Thyroid Ultrasound 10/31/16 0000 Signed Impressions: Service Date/Time: Monday, October 31, 2016 11:47 - CONCLUSION: Large complex mass right lobe of the thyroid. Minimally increased in size since Jacoby Torre MD FACR Abdomen X-Ray 10/29/16 0000 Signed Impressions: Service Date/Time: Saturday, October 29, 2016 15:32 - CONCLUSION: Negative for radiopaque foreign bodies. Jacoby Torre MD FACR Chest CT 10/28/161813 Signed Impressions: Service Date/Time: Friday, October 28, 2016 18:28 - CONCLUSION: 1. Abnormality on chest radiograph corresponds to a 3.4 x 3.5 cm central right hilar mass/adenopathy with associated postobstructive airspace consolidation in the inferior right upper lobe. There are at least 2 additional pulmonary nodules measuring 13 x 8 mm in the anterior right middle lobe and 8 x 8 mm in the anterior right upper lobe near the apex. 2. 3.9 x 4.3 cm heterogeneous nodule in the right thyroid gland. No significant regional cervical adenopathy. 3. Patchy bilateral lower lobe air space consolidation and diffuse ground glass opacities. Differential considerations include ARDS versus infection versus aspiration. 1. Tyler Selby MD Head CT 10/28/16 0000 Signed Impressions: Service Date/Time: [place], October 28, 2016 20:44 - CONCLUSION: 1. No bleed or evidence of acute infarction. 2. Atrophy and chronic white matter changes. 3. Moderate ventriculomegaly, beyond that expected for the degree of atrophy. Normal pressure hydrocephalus would be in the differential. Keshav Burks MD Hospital Course 10/29 Patient is sedated with Diprivan and intubated. Afebrile. 10/30 Patient remains sedated and intubated. T:99.7 last night. 10/31: Intubated sedated. CT reviewed and discussed with Dr. Madison. Will consider Bronch. Also check thyroid US and possible biopsy. Check thyroid studies. Also consult palliative care as patient has underlying dementia with NPH and possible malignancy. 11/01: Tmax 100.3. Plan for bronchoscopy at 3:00 today. Noted thyroid masses chronic/since 2011. Tolerating tube feeding. Positive BM. 11/02: Tmax 100.1. Status post bronchoscopy yesterday with removal of mucous plugging. Tolerating tube feeds. Positive BM. Weaning propofol sedation today. 11/03: Tmax 100.6. Noted elevated leukocytosis. Weaning sedation. Positive BM. Tolerate tube feeding. 11/04: Afebrile. UA negative. C. difficile pending. 4 bowel movement overnight. Tolerating tube feeding. No new issues. 11/05 Patient is sedated with Diprivan and intubated. T:100.7. Given Labetalol 10mg IV x3 for hypertension overnight. 11/06 No events overnight. Off sedation. T: 101.5 last night. 11/07: Tmax 102. Currently 100.6. Continues off sedation. Eyes are open to voice but not falling commands. Noted MRI brain unchanged. MRI C-spine revealed no cord compression or cord abnormality's. Severe C5/6 right foraminal narrowing 11/08: Remains intubated sedated, intermittently opens eyes. Per palliative care , diving judge requesting letter of certification from treatment team. Prior to making a decision to withdraw from life support, the diving judge is requesting a letter from the covering physicians certifying that she is hospice appropriate and palliative rather than aggressive treatment is appropriate. Dr. Madison thinks hospice is appropriate but also recommends Oncology input. I have consulted medical oncology 11/09 Patient remains intubated, on no sedation, Tmax 103.1 gets tachypneic with CPAP trials 9/30 Patient is intubated had T:100.3 last night. Doesn't follow commands. 11/11 No events overnight. Placed on Precedex drip yesterday to facilitate with weaning trials. T: 99.7. Awake looking around with her eyes but does not following commands. 11/12 Patient remains intubated. On Precedex drip. Did not tolerate CPAP trials yesterday. 11/13 No events overnight. Intubated doesn't tolerate CPAP trials. T:100.5 last night. 11/14 Patient remains intubated. Off sedation. T;100.1 11/15 No events overnight. Intubated. T:100.8 last night. 11/16: Tmax 99.5. Currently resting in bed in no acute distress. Eyes are open but does not follow commands. Off all sedation. Tolerating tube feeding. Positive BM. 11/17: Tmax 100.1. Resting blood eyes open not falling commands. Off all sedation. Tolerating tube feeds. Intermittently hypertensive. 11/18: Tmax 99.5. Moving head back and forth and following commands weakly with bilateral upper extremities. Tolerating tube feeds. Off all sedation 7 days. 11/19: Asynchronous with the vent. Now on propofol. Probable withdrawal of care today according to palliative care. Waiting to hear back from guardian 11/20: Waiting for diving judge's order to permit withdrawal from ventilator, and comfort measures. At this time patient is sedated with propofol. Fentanyl as needed 11/21: Sedated with propofol appears comfortable. Bilateral course breath sounds. IV Bumex and DuoNeb ordered 11/22: Patient remains on the vent breathing comfortably on propofol. Bilateral wheezing has improved. No further decision had been made regarding date of withdrawal. 11/23: No change in condition, comfortable on propofol. Patient is synchronous with the ventilator 11/24: Wheezing, tachypneic on vent. DuoNeb will be administered by respiratory 11/25: No recent labs or chest x-ray done. Wheezing improved 11/26: No changes in her mental status or clinical condition. Synchronous with the vent 11/27: No change in clinical condition. Per palliative care notes, Notice of Hearing to take place on November 29, to discuss Emergency Petition to Authorize Removal of Life Support. 11/28: No change in condition, hearing scheduled for tomorrow. Patient appears comfortable 11/29: Hearing is today. No changes in clinical condition. Remains terminally ill with multiple terminal conditions 11/30: Request for withdrawal of life support denied yesterday by the diving judge. No further updates or changes. See palliative care notes for details 12/01: No new updates, Patient appears comfortable. 12/02; Remains intubated, sedated for comfort. No evidence of meaningful recovery, continues to be terminally ill. 12/03: no changes or improvements. terminally ill without hope of recovery. 12/04: no improvements. poor prognosis. awaiting diving judge hearing. 12/05: No change in condition. Unresponsive on the ventilator. 12/06: [employer] Att[employer] has presented ordered for withdrawal of care. Coordinating with palliative care and son currently. Currently afebrile. Tolerating tube feeds. 12/07: family at bedside. withdraw of care. patient comfortably. Jamie Gong MD Dec 07, 2016 17:56
== END 2016-12-07 15:57 | disposition expired | DRG 853 ==
LOC: NEPE 15:52 → NEDA 18:32 → HIME 20:55
PROVIDERS: ADMIT Internal Medicine Critical Care Medicine; ATTEND Internal Medicine Critical Care Medicine
PROC: 5A1955Z Respiratory Ventilation, Greater than 96 Consecutive Hours (ICD-10-PCS; 2016-10-28)
PROC: 0BH17EZ Insertion of Endotracheal Airway into Trachea, Via Natural or Artificial Opening (ICD-10-PCS; 2016-10-28)
PROC: 0B9C8ZX Drainage of Right Upper Lung Lobe, Via Natural or Artificial Opening Endoscopic, Diagnostic (ICD-10-PCS; principal; 2016-11-01)
PROC: 0BCB8ZZ Extirpation of Matter from Left Lower Lobe Bronchus, Via Natural or Artificial Opening Endoscopic (ICD-10-PCS; 2016-11-01)
PROC: 0BD48ZX Extraction of Right Upper Lobe Bronchus, Via Natural or Artificial Opening Endoscopic, Diagnostic (ICD-10-PCS; 2016-11-01)
DX: A41.9 Sepsis, unspecified organism (principal); J96.01 Acute respiratory failure with hypoxia; J69.0 Pneumonitis due to inhalation of food and vomit; G92 Toxic encephalopathy; J18.9 Pneumonia, unspecified organism; T17.890A Other foreign object in other parts of respiratory tract causing asphyxiation, initial encounter; E87.0 Hyperosmolality and hypernatremia; K52.1 Toxic gastroenteritis and colitis; N39.0 Urinary tract infection, site not specified; G91.2 (Idiopathic) normal pressure hydrocephalus; E44.1 Mild protein-calorie malnutrition; C34.01 Malignant neoplasm of right main bronchus; B37.49 Other urogenital candidiasis; F03.90 Unspecified dementia, unspecified severity, without behavioral disturbance, psychotic disturbance, mood disturbance, and anxiety; B96.20 Unspecified Escherichia coli [E. coli] as the cause of diseases classified elsewhere; E11.9 Type 2 diabetes mellitus without complications; R65.20 Severe sepsis without septic shock; Z16.12 Extended spectrum beta lactamase (ESBL) resistance; E78.5 Hyperlipidemia, unspecified; J45.909 Unspecified asthma, uncomplicated; F32.9 Major depressive disorder, single episode, unspecified; F41.9 Anxiety disorder, unspecified; J39.8 Other specified diseases of upper respiratory tract; D64.9 Anemia, unspecified; Z51.5 Encounter for palliative care; E07.9 Disorder of thyroid, unspecified; I10 Essential (primary) hypertension; T36.95XA Adverse effect of unspecified systemic antibiotic, initial encounter; B96.5 Pseudomonas (aeruginosa) (mallei) (pseudomallei) as the cause of diseases classified elsewhere; B95.61 Methicillin susceptible Staphylococcus aureus infection as the cause of diseases classified elsewhere; M48.02 Spinal stenosis, cervical region; B96.89 Other specified bacterial agents as the cause of diseases classified elsewhere; Z79.4 Long term (current) use of insulin; Z88.0 Allergy status to penicillin; Z88.8 Allergy status to other drugs, medicaments and biological substances
CPT/HCPCS: 31500; 31624; 36600; 51702; 70450; 70551; 70553; 71010; 71260; 72141; 74000; 76536; 76937; 80048; 80053; 80202; 81001; 82140; 82550; 82565; 82607; 82805; 82948; 83605; 83735; 83880; 84100; 84132; 84155; 84436; 84443; 84480; 84484; 85007; 85025; 85027; 85610; 85652; 85730; 86140; 86403; 86592; 87015; 87040; 87070; 87077; 87086; 87102; 87116; 87147; 87186; 87205; 87206; 87449; 87493; 87556; 87641; 87798; 88112; 88305; 93005; 94002; 94003; 94640; 94664; 95819; 96365; A9579; J0330; J0360; J1644; J1815; J1953; J1956; J2020; J2060; J2185; J2250; J2270; J3010; J3370; J7030; J7040; J7050; J7613; Q9967